=== PATIENT | female | born 1945 | race Caucasian/White ===

== ENCOUNTER → 2017-06-12 15:39 | Outpatient (CLI) | payer MEDICARE, OTHER, SELFPAY ==
--- NOTE | 2017-06-12 15:51 | RAD_ITS ---
STUDY: X-RAY CHEST REASON FOR EXAM: Female, 72 years old. Chest pain TECHNIQUE: Frontal and lateral views of the chest COMPARISON: 09/02/2014 FINDINGS: The lungs are clear. There are no pleural effusions. There is no pneumothorax. The heart is normal in size. The visualized osseous structures are within normal limits. RAD/Chest PA and Lateral IMPRESSION: No acute thoracic pathology. Electronically Signed: Demarco Cadet, at 17:02 EDT Tel , Service support ,
== END ==
PROVIDERS: Family Provider Family Medicine; PCP Family Medicine; Visit Provider Nurse Practitioner Adult Health
DX: R06.00 Dyspnea, unspecified (principal)
CPT/HCPCS: 71046

== ENCOUNTER 2017-06-24 11:36 | Inpatient (IN) | payer MEDICARE, OTHER, SELFPAY ==
[2017-06-24] VITALS (15 sets, daily range): BP systolic 145–196; BP diastolic 62–153; PULSE 72–135; RESP 14–20; TEMP 36.6–37.3; O2SAT 96–98; BMI 42.9; BMI 43.2; BMI 42.8
--- NOTE | 2017-06-24 08:27 | EKG12_ITS ---
Test Reason : CP Blood Pressure : / mmHG Vent. Rate : 136 BPM Atrial Rate : 144 BPM P-R Int : 198 ms QRS Dur : 088 ms QT Int : 294 ms P-R-T Axes : 000 013 023 degrees QTc Int : 442 ms Atrial fibrillation with RVR Nonspecific ST abnormality Poor R wave progression [place] septal [place], age undetermined, cannot be excluded Abnormal ECG Confirmed by NIRMAL DONALDSON, DELFINA ([id number]), publications editor NEFTALY STANTON ([id number]) on 06/25/2017 3:18:09 PM Referred By: BRENDAN Confirmed By:DELFINA KINNEY MD
--- NOTE | 2017-06-24 08:27 | RAD_ITS ---
STUDY: X-RAY CHEST REASON FOR EXAM: Female, 72 years old. Chest pain and cough TECHNIQUE: Single AP portable view of the chest. COMPARISON: 06/12/17 FINDINGS: EKG leads overlie the chest There are interstitial fibrotic changes of the lungs. Stable blunting of the right costophrenic angle, likely chronic. Normal size heart. Normal mediastinum and alfredo. Normal visualized pulmonary arteries. There is atherosclerotic calcification of the aortic arch with tortuosity. There are diffuse degenerative changes of the visualized thoracic spine. There is degenerative osteoarthritis of the bilateral shoulders. There is no demonstrated abnormality of the visualized soft tissue structures of the upper abdomen. RAD/Chest 1 View (Portable) IMPRESSION: Degenerative changes, as described above. No demonstrated acute cardiopulmonary process. No interval change Electronically Signed: Colt Brown MD at 8:56 EDT , Service support ,
--- NOTE | 2017-06-24 08:30 | ED.DCSUM_ITS ---
- ER Visit Summary Date of Service: 06/24/17 Chief Complaint: Chest pain History of Present Illness: The patient is a 72 F presenting with chest pain. Patient states this started around 2 AM. Pain is in the midsternal area. She has had diaphoresis, nausea, shortness of breath. She has no radiation of her pain. She was recently treated with Levaquin for pneumonia. She finished antibiotics a week ago. She continues to have cough. She has no fever. She has history of hypertension, diabetes, hypercholesteremia, previous smoker. Denies PE/DVT risk factors. She did not take her morning medications today. Physical Examination: Vitals are stable. Patient is afebrile. Alert no acute distress. HEENT exam is unremarkable. Neck is supple. Lungs are clear and equal bilaterally. Heart is regular tachycardic Abdomen is soft nontender nondistended. Extremities are unremarkable. Skin is warm and dry. No focal neurologic deficit. Remainder of exam is unremarkable. Emergency Department Course and Treatment: EKG sinus tachycardia rate 136. Patient is given aspirin on arrival. She is given IV fluids, Lopressor. Patient EKG is sinus rate is 74 with no acute ischemic changes. CBC shows a white count of 12.8, hemoglobin 11.9. BUN 20, creatinine 1.15. Troponin 0.05. D-dimer is 1.97. Due to elevated d-dimer, CTA chest was obtained which shows no evidence of PE, small right pleural effusion. Due to multiple risk factors, will discuss with the hospitalist for observation. Disposition: Observation Impression: Chest pain This note was generated with [employer] dictation software. It may contain incorrect words, spelling, and punctuation that were not noted in review of the chart prior to signing ED Disposition - Plan for ED Patient: Chief Complaint: Chest Pain Referrals: Aristides Quispe MD [Primary Care Provider] -
[2017-06-24] MEDS: Aspirin 81 MG TAB.CHEW 324 MG PO (08:37)
[2017-06-24] MEDS: Metoprolol Tartrate 5 MG/5 ML Vial IV (08:37)
[2017-06-24 08:52] LABS: Absolute Lymphocyte Count 2.96 X10^3/ul (0.83-4.51); Absolute Neutrophil Count 8.3 X10^3/uL (2.0-7.7); Basophil# 0.02 X10^3/uL; Basophil% 0.2 % (0-1); Eosinophil# 0.33 X10^3/uL; Eosinophils% 2.6 % (0-5); Hematocrit 35.1 % (37-47); Hemoglobin 11.9 g/dl (12.0-15.0); Lymphocyte # 2.96 X10^3/ul (4.0); Lymphocyte % 23.1 % (19-41); Mean Corp Hgb Conc 33.9 g/gl (32-36); Mean Corpuscular Hgb 32.7 pg (27.0-32.0); Mean Corpuscular Volume 96.4 fL (81-99); Monocyte% 9.4 % (0-10); Neutrophil # 8.25 X10^3/uL (2.7-7.7); Neutrophil % 64.2 % (47-70); Platelet Count 194 K/mm3 (150-450); RBC Distribution Width CV 13.5 % (11.6-14.6); RBC Distribution Width SD 45.3 fl (35.1-43.9); Red Blood Count 3.64 M/mm3 (4.2-5.4); White Blood Count 12.8 K/mm3 (4.4-11.0)
[2017-06-24 08:55] LABS: POSITIVE COUNT NO; POSITIVE DIFFERENTIAL NO; POSITIVE MORPHOLOGY NO
[2017-06-24 09:01] LABS: D-Dimer Quantitative (DVT/PE) 1.97 FEU/ug/m (0.27-0.49)
[2017-06-24 09:03] LABS: Anion Gap 7 (5-15); BUN 28 mg/dL (7-18); BUN/Creat Ratio 24.3 RATIO (10-20); Calcium,Total 8.4 mg/dL (8.5-10.1); Chloride 104 mmol/L (98-107); Creatinine, Serum 1.15 mg/dL (0.55-1.02); EST Glomerular Filtration Rate 49 mL/min (>60); Est Glom Filt Rate - Afr Amer 60 mL/min (>60); Estimated Creatinine Clearance 32.88 ml/min; Glucose 230 mg/dL (74-106); Potassium 4.9 mmol/L (3.5-5.1); Sodium Level 139 mmol/L (136-145)
--- NOTE | 2017-06-24 09:06 | ED.RN ---
DDIMER 1.[address] CARDONA NOTIFIED
--- NOTE | 2017-06-24 09:15 | CT_ITS ---
STUDY: CTA CHEST REASON FOR EXAM: Female, 72 years old. Sternal chest pain and chest heaviness. Former smoker. RADIATION DOSAGE (If Supplied By Facility): CTDIvol = ( 16.71 ) mGy, DLP = ( 719.95 ) mGycm TECHNIQUE: The examination was performed with the intravenous administration of 100 ml of Isovue 370 contrast material. Post-processing of the angiographic images was performed, with multiplanar reformation and 3D reconstruction. Individualized dose optimization techniques were used for this CT. COMPARISON: None. FINDINGS: Normal enhancement of the main pulmonary artery and right and left pulmonary arteries. Normal enhancement of the bilateral peripheral pulmonary arteries. There is no demonstrated pulmonary embolism. There is atherosclerotic calcification of the aortic arch with tortuosity. There is no demonstrated aortic dissection. There are calcifications of the coronary arteries. Normal mediastinum. Normal hilar regions. Normal visualized trachea and bronchi. The lungs are well expanded. Small right pleural effusion with underlying right basilar atelectasis. Mild increased markings at the left lung base. There is evidence of bibasilar scarring with areas of bronchiectasis. There is a 4.9 mm noncalcified nodule in the peripheral lateral aspect of the left lower lobe as seen on axial image #120. There is also evidence of a 5.6 mm noncalcified nodule along the anterior aspect of the left lower lobe adjacent to the major fissure as seen on axial image #128. Normal chest wall structures. There are degenerative changes of thoracic spine. Normal visualized upper abdomen. CT/CTA Chest W/WO Contrast IMPRESSION: Small right pleural effusion with right basilar atelectasis. Bibasilar scarring with areas of bronchiectasis. There are 2 small noncalcified nodules in the left lower lobe as described. Electronically Signed: Edilson Vaughn MD at 10:19 EDT Tel [phone], Service support ,
--- NOTE | 2017-06-24 10:45 | EKG12_ITS ---
Test Reason : REPEAT Blood Pressure : / mmHG Vent. Rate : 074 BPM Atrial Rate : 074 BPM P-R Int : 164 ms QRS Dur : 086 ms QT Int : 380 ms P-R-T Axes : 064 018 029 degrees QTc Int : 421 ms Normal sinus rhythm Poor R wave progression [place] septal [place], age undetermined, cannot be excluded Confirmed by NIRMAL DONALDSON, DELFINA ([id number]), assistant production editor NEFTALY STANTON ([id number]) on 06/25/2017 3:18:55 PM Referred By: BRENDAN Confirmed By:DEFLINA KINNEY MD
--- NOTE | 2017-06-24 11:43 | NURSING ---
PCU OBS CRISTIAN BECKWITH
--- NOTE | 2017-06-24 13:10 | PCM.HP.STD ---
Problem List (1) Asthma Status: Chronic (2) History of tobacco use Status: Chronic (3) Hypertension Status: Chronic (4) Hyperlipidemia Status: Chronic (5) History of TIA (transient ischemic attack) Status: Chronic (6) Morbid obesity with BMI of 40.0-44.9, adult Status: Chronic (7) Type II diabetes mellitus Status: Chronic History of Present Illness Date of Admission: 06/24/17 Chief Complaint: Chest pain. The patient is a 72 year old F with past medical history as mentioned above presented to the emergency room because of chest pain. Her symptoms started last night when she was sitting in her chair with substernal chest pain, described as pressure-like pain, 7-8 out of 10 in severity, not radiating, associated with mild shortness of breath, nausea and diaphoresis, lasted for around 6 hours without aggravating or relieving factors. The patient persists until she came to the emergency room and at this time, she thinks her pain is getting better. Around 12 days ago, she went to her PCPs office for cough and sputum production and she was treated for pneumonia as well as probable asthma exacerbation with Levaquin and prednisone. She completed course of 7 days of Levaquin as well as course of prednisone. She mentioned that after the antibiotics and prednisone, she feels better but she continued to have persistent dry cough. She denied fever or chills. In the emergency room, she was afebrile, heart rate was stable, pressure was fluctuating but slightly elevated and pulse ox was 96% on 2 L. Her routine blood work is remarkable for mild leukocytosis, creatinine of 1.15, otherwise normal. Her troponin is negative. EKG revealed normal sinus rhythm without evidence of acute ischemic changes. D-dimer was elevated for which CTA chest done and revealed no evidence of PE or dissection, left lower lobe nodules and small right pleural effusion. She is being admitted for chest pain for evaluation as well as left lower lung nodules.. Past Medical History Past Medical History (Chronic Problems): Chronic Problems Asthma (Chronic) History of tobacco use (Chronic) Hypertension (Chronic) Hyperlipidemia (Chronic) History of TIA (transient ischemic attack) (Chronic) Morbid obesity with BMI of 40.0-44.9, adult (Chronic) Type II diabetes mellitus (Chronic) Allergies hydrocodone bitartrate [From Vicodin] Allergy (Verified 06/24/17 08:13) Shortness of breath Penicillins Allergy (Verified 06/24/17 08:13) Hives oxycodone HCl [From Percocet] Adverse Reaction (Verified 06/24/17 08:13) Rash Home Medications: Ambulatory Orders Medication Instructions Recorded Glipizide [Glucotrol Xl] 10 mg PO BID 09/02/14 Metoprolol Tartrate [Lopressor 25 mg PO DAILY 09/02/14 (beta rory)] Metoprolol Tartrate [Lopressor 50 mg PO QHS 09/02/14 (beta rory)] Clopidogrel Bisulfate [Plavix] 75 mg PO DAILY #30 tablet 09/04/14 Aspirin [Aspirin, Baby] 81 mg PO DAILY 09/27/14 Montelukast [Singulair] 10 mg PO DAILY 09/21/15 Lisinopril/Hydrochlorothiazide 1 each PO DAILY #30 tablet 10/27/15 [Zestoretic 20-25 mg Tablet] Furosemide [Lasix] 40 mg PO DAILY 06/24/17 Insulin Glargine,Hum.rec.anlog 80 unit SQ DAILY 06/24/17 [Basaglar Kwikpen U-100] Lisinopril [Zestril] 20 mg PO QHS 06/24/17 Simvastatin [Zocor] 20 mg PO QHS 06/24/17 Symbicort 160-4.5 Mcg Inhaler 2 puff IH BID 06/24/17 traMADol [Ultram] 50 mg PO PRN PRN 06/24/17 Surgical History: cholecystectomy, tonsillectomy, - Psychiatric History: No pertinent psych hx [employer] MANAGER History: 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 Paternal History Items: Diabetes, Heart Disease - Father w/ NC, age 62., Hypertension Review of Systems Constitutional: Denies: Anorexia, Chills, Fever, Weakness, Fatigue Eyes: Denies: Blurred vision, Double vision, Drainage, Redness HEENT: Denies: Difficulty Hearing, Ear Pain, Eye Pain, Nasal Congestion, Sore Throat Cardiovascular: Reports: Chest Pain, Chest Pressure, Edema. Denies: Heaviness, Light Headedness, Palpitations, Syncope Respiratory: Reports: Cough, Shortness of Breath, Shortness of breath upon exertion. Denies: Sputum production, Wheezing Gastrointestinal: Denies: Abdominal Pain, Constipation, Diarrhea, Nausea, Vomiting Genitourinary: Denies: Dysuria, Frequency, Hematuria Musculoskeletal: Denies: Arm Pain, Back Pain, Foot Pain Skin: Denies: Dryness, Rash Neurological: Denies: Balance problems, Change in Speech, Slurred speech, Confusion, Headaches, Incoordination, Numbness Psychiatric: Denies: Anxiety, Depression Endocrine: Denies: Change in Body Habitus, Polydipsia VTE Information - Inpt Only VTE Present on Admission: No VTE Mechan Device Prophylaxis: None VTE Pharm Prophylaxis ordered?: Yes - Physical Exam General: Alert, Oriented x3, Cooperative, No apparent distress HEENT: Atraumatic, PERRLA, EOMI Oral: Moist Mucosa, No Gingival or Mucosal Lesions/ Ulcerations Neck: Supple, No JVD, Negative Carotid Bruits, Trachea Midline, Thyroid Normal Size and Texture Lungs: Clear to auscultation, No rhonchi, No wheeze, No rales, Diminished Cardiovascular: Regular rate, Regular Rhythm, Normal S1, Normal S2, No murmurs, Bradycardic Abdomen: Bowel Sounds Present, Soft, Non Tender, Non-Distended, No Hepato-splenomegaly, Obese Extremities: No clubbing, No cyanosis, Edema - + Edema. Skin: No rashes, No breakdown Lymphatic: No Cervical, Supraclavicular, or Inguinal Adenopathy Neurological: Cranial nerves II-XII grossly intact, Motor Exam 5/5 strength throughout Psych/Mental Status: Normal Affect, Appropriate, Alert and oriented to time, place, person, mood and affect Vital Signs Temp Pulse Resp BP Pulse Ox 98.3 F 80 14 168/75 H 98 06/24/17 08:14 06/24/17 12:16 06/24/17 12:16 06/24/17 12:16 06/24/17 12:16 Oxygen Delivery Method Room Air Laboratory Tests 06/24/17 06/24/17 06/24/17 Range/Units 08:30 08:30 08:30 WBC 12.8 H (4.4-11.0) K/mm3 RBC 3.64 L (4.2-5.4) M/mm3 Hgb 11.9 L (12.0-15.0) g/dl Hct 35.1 L (37-47) % MCV 96.4 (81-99) fL MCH 32.7 H (27.0-32.0) pg MCHC 33.9 (32-36) g/gl RDW 13.5 (11.6-14.6) % RDW Differential 45.3 H (35.1-43.9) fl Plt Count 194 (150-450) K/mm3 MPV 9.0 (6.2-12.0) fl Immature Gran % (Auto) 0.500 (0.0-0.9) % Neut % (Auto) 64.2 (47-70) % Lymph % (Auto) 23.1 (19-41) % [place] % (Auto) 9.4 (0-10) % Eos % (Auto) 2.6 (0-5) % Baso % (Auto) 0.2 (0-1) % Absolute Neuts (auto) 8.3 H (2.0-7.7) X10^3/uL Absolute Lymphs (auto) 2.96 (0.83-4.51) X10^3/ul Total Counted Not Reportable D-Dimer Quant (PE/DVT) 1.97 H* (0.27-0.49) FEU/ug/m Sodium 139 (136-145) mmol/L Potassium 4.9 (3.5-5.1) mmol/L Chloride 104 (98-107) mmol/L Carbon Dioxide 28.0 (21.0-32.0) mmol/L Anion Gap 7 (5-15) BUN 28 H (7-18) mg/dL Creatinine 1.15 H (0.55-1.02) mg/dL Estim Creat Clear Calc 32.88 ml/min Est GFR (MDRD) Af Amer 60 (>60) mL/min Est GFR (MDRD) Non-Af 49 L (>60) mL/min BUN/Creatinine Ratio 24.3 H (10-20) RATIO Glucose 230 H (74-106) mg/dL Calcium 8.4 L (8.5-10.1) mg/dL Troponin I 0.05 (<0.06) ng/mL Clinical Impression(s) from Imaging Studies Chest X-Ray 06/24/17 08:27 IMPRESSION: Degenerative changes, as described above. No demonstrated acute cardiopulmonary process. No interval change Electronically Signed: Colt Brown MD at 8:56 EDT , Service support , Chest CTA 06/24/17 09:15 IMPRESSION: Small right pleural effusion with right basilar atelectasis. Bibasilar scarring with areas of bronchiectasis. There are 2 small noncalcified nodules in the left lower lobe as described. Electronically Signed: Edilson Vaughn MD at 10:19 EDT Tel [phone], Service support , Assessment/Plan This is a 72 years old female patient presented to the emergency room because of chest pain/pressure and she is being admitted for evaluation and also found to have 2 left lower lung nodules. #1 chest pain/pressure: EKG revealed no acute ischemic changes. First troponin is negative. CTA chest showed no evidence of PE or dissection. She had a history of non-ST elevation NC back in August, which is attributed to lesion at the terminal portion of the obtuse marginal branch, no interventions done at that time and medical treatment was recommended. Chest x-ray showed no acute findings. Plan: Admit to PCU, hall monitor, serial cardiac enzymes, repeat EKG tomorrow morning, nuclear stress test tomorrow morning, IV fluids, IV Zofran, Tylenol as needed, continue aspirin, statins, Plavix, lisinopril. #2 left lower lung nodules: This is an incidental finding on CTA chest. Patient is a ex-smoker. She quit smoking 14 years ago. Those nodules are very small. Plan: Pulmonology consult. #3 recent history of pneumonia: Patient was treated with Levaquin and prednisone as outpatient. She did mention that she feels better after the antibiotics and steroids but she continued to have persistent cough. Chest x-ray without acute infiltrate. CTA chest with small right pleural effusion which is likely parapneumonic. At this time, no indication for more antibiotics. #4 elevated d-dimer: Unclear etiology, CTA chest negative for PE. No clinical evidence of DVT. #5 CAD: Without history of prior cardiac interventions. Plan as above, continue aspirin, statins, Plavix and lisinopril. Metoprolol will be held for stress test. #5 type 2 diabetes mellitus: ADA diet, Accu-Cheks, insulin sliding scale, continue glipizide and glargine insulin. #6 hypertension: Initially, blood pressure was slightly elevated, now stabilized. Continue lisinopril, hold metoprolol, IV hydralazine as needed. #7 hyperlipidemia: Continue statins. #8 asthma: Clinically stable, albuterol as needed. She is supposed to see Dr. Erickson as outpatient by the end of this month. He will be consulted as above. #9 history of TIA: Continue aspirin, statin and Plavix. #10 DVT prophylaxis: Subcu heparin. This note was generated with [employer] dictation software. It may contain incorrect words, spelling, and punctuation that were not noted in checking the note before signing. Code Visit Inpatient E&M: 93187 Init Hosp L3
--- NOTE | 2017-06-24 13:18 | HP.PCM_ITS ---
Problem List (1) Asthma Status: Chronic (2) History of tobacco use Status: Chronic (3) Hypertension Status: Chronic (4) Hyperlipidemia Status: Chronic (5) History of TIA (transient ischemic attack) Status: Chronic (6) Morbid obesity with BMI of 40.0-44.9, adult Status: Chronic (7) Type II diabetes mellitus Status: Chronic History of Present Illness Date of Admission: 06/24/17 Chief Complaint: Chest pain. The patient is a 72 year old F with past medical history as mentioned above presented to the emergency room because of chest pain. Her symptoms started last night when she was sitting in her chair with substernal chest pain, described as pressure-like pain, 7-8 out of 10 in severity, not radiating, associated with mild shortness of breath, nausea and diaphoresis, lasted for around 6 hours without aggravating or relieving factors. The patient persists until she came to the emergency room and at this time, she thinks her pain is getting better. Around 12 days ago, she went to her PCPs office for cough and sputum production and she was treated for pneumonia as well as probable asthma exacerbation with Levaquin and prednisone. She completed course of 7 days of Levaquin as well as course of prednisone. She mentioned that after the antibiotics and prednisone, she feels better but she continued to have persistent dry cough. She denied fever or chills. In the emergency room, she was afebrile, heart rate was stable, pressure was fluctuating but slightly elevated and pulse ox was 96% on 2 L. Her routine blood work is remarkable for mild leukocytosis, creatinine of 1.15, otherwise normal. Her troponin is negative. EKG revealed normal sinus rhythm without evidence of acute ischemic changes. D-dimer was elevated for which CTA chest done and revealed no evidence of PE or dissection, left lower lobe nodules and small right pleural effusion. She is being admitted for chest pain for evaluation as well as left lower lung nodules.. Past Medical History Past Medical History (Chronic Problems): Chronic Problems Asthma (Chronic) History of tobacco use (Chronic) Hypertension (Chronic) Hyperlipidemia (Chronic) History of TIA (transient ischemic attack) (Chronic) Morbid obesity with BMI of 40.0-44.9, adult (Chronic) Type II diabetes mellitus (Chronic) Allergies hydrocodone bitartrate [From Vicodin] Allergy (Verified 06/24/17 08:13) Shortness of breath Penicillins Allergy (Verified 06/24/17 08:13) Hives oxycodone HCl [From Percocet] Adverse Reaction (Verified 06/24/17 08:13) Rash Home Medications: Ambulatory Orders Medication Instructions Recorded Glipizide [Glucotrol Xl] 10 mg PO BID 09/02/14 Metoprolol Tartrate [Lopressor 25 mg PO DAILY 09/02/14 (beta rory)] Metoprolol Tartrate [Lopressor 50 mg PO QHS 09/02/14 (beta rory)] Clopidogrel Bisulfate [Plavix] 75 mg PO DAILY #30 tablet 09/04/14 Aspirin [Aspirin, Baby] 81 mg PO DAILY 09/27/14 Montelukast [Singulair] 10 mg PO DAILY 09/21/15 Lisinopril/Hydrochlorothiazide 1 each PO DAILY #30 tablet 10/27/15 [Zestoretic 20-25 mg Tablet] Furosemide [Lasix] 40 mg PO DAILY 06/24/17 Insulin Glargine,Hum.rec.anlog 80 unit SQ DAILY 06/24/17 [Basaglar Kwikpen U-100] Lisinopril [Zestril] 20 mg PO QHS 06/24/17 Simvastatin [Zocor] 20 mg PO QHS 06/24/17 Symbicort 160-4.5 Mcg Inhaler 2 puff IH BID 06/24/17 traMADol [Ultram] 50 mg PO PRN PRN 06/24/17 Surgical History: cholecystectomy, tonsillectomy, - Psychiatric History: No pertinent psych hx 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 Paternal History Items: Diabetes, Heart Disease - Father w/ [place], age 62., Hypertension Review of Systems Constitutional: Denies: Anorexia, Chills, Fever, Weakness, Fatigue Eyes: Denies: Blurred vision, Double vision, Drainage, Redness HEENT: Denies: Difficulty Hearing, Ear Pain, Eye Pain, Nasal Congestion, Sore Throat Cardiovascular: Reports: Chest Pain, Chest Pressure, Edema. Denies: Heaviness, Light Headedness, Palpitations, Syncope Respiratory: Reports: Cough, Shortness of Breath, Shortness of breath upon exertion. Denies: Sputum production, Wheezing Gastrointestinal: Denies: Abdominal Pain, Constipation, Diarrhea, Nausea, Vomiting Genitourinary: Denies: Dysuria, Frequency, Hematuria Musculoskeletal: Denies: Arm Pain, Back Pain, Foot Pain Skin: Denies: Dryness, Rash Neurological: Denies: Balance problems, Change in Speech, Slurred speech, Confusion, Headaches, Incoordination, Numbness Psychiatric: Denies: Anxiety, Depression Endocrine: Denies: Change in Body Habitus, Polydipsia VTE Information - Inpt Only VTE Present on Admission: No VTE Mechan Device Prophylaxis: None VTE Pharm Prophylaxis ordered?: Yes - Physical Exam General: Alert, Oriented x3, Cooperative, No apparent distress HEENT: Atraumatic, PERRLA, EOMI Oral: Moist Mucosa, No Gingival or Mucosal Lesions/ Ulcerations Neck: Supple, No JVD, Negative Carotid Bruits, Trachea Midline, Thyroid Normal Size and Texture Lungs: Clear to auscultation, No rhonchi, No wheeze, No rales, Diminished Cardiovascular: Regular rate, Regular Rhythm, Normal S1, Normal S2, No murmurs, Bradycardic Abdomen: Bowel Sounds Present, Soft, Non Tender, Non-Distended, No Hepato- splenomegaly, Obese Extremities: No clubbing, No cyanosis, Edema - + Edema. Skin: No rashes, No breakdown Lymphatic: No Cervical, Supraclavicular, or Inguinal Adenopathy Neurological: Cranial nerves II-XII grossly intact, Motor Exam 5/5 strength throughout Psych/Mental Status: Normal Affect, Appropriate, Alert and oriented to time, place, person, mood and affect Vital Signs Temp Pulse Resp BP Pulse Ox 98.3 F 80 14 168/75 H 98 06/24/17 08:14 06/24/17 12:16 06/24/17 12:16 06/24/17 12:16 06/24/17 12:16 Oxygen Delivery Method Room Air Laboratory Tests 3 06/24/17 06/24/17 06/24/17 Range/Units 08:30 08:30 08:30 WBC 12.8 H (4.4-11.0) K/mm3 RBC 3.64 L (4.2-5.4) M/mm3 Hgb 11.9 L (12.0-15.0) g/dl Hct 35.1 L (37-47) % MCV 96.4 (81-99) fL MCH 32.7 H (27.0-32.0) pg MCHC 33.9 (32-36) g/gl RDW 13.5 (11.6-14.6) % RDW Differential 45.3 H (35.1-43.9) fl Plt Count 194 (150-450) K/mm3 MPV 9.0 (6.2-12.0) fl Immature Gran % (Auto) 0.500 (0.0-0.9) % Neut % (Auto) 64.2 (47-70) % Lymph % (Auto) 23.1 (19-41) % [place] % (Auto) 9.4 (0-10) % Eos % (Auto) 2.6 (0-5) % Baso % (Auto) 0.2 (0-1) % Absolute Neuts (auto) 8.3 H (2.0-7.7) X10^3/uL Absolute Lymphs (auto) 2.96 (0.83-4.51) X10^3/ul Total Counted Not Reportable D-Dimer Quant (PE/DVT) 1.97 H* (0.27-0.49) FEU/ug/m Sodium 139 (136-145) mmol/L Potassium 4.9 (3.5-5.1) mmol/L Chloride 104 (98-107) mmol/L Carbon Dioxide 28.0 (21.0-32.0) mmol/L Anion Gap 7 (5-15) BUN 28 H (7-18) mg/dL Creatinine 1.15 H (0.55-1.02) mg/dL Estim Creat Clear Calc 32.88 ml/min Est GFR (MDRD) Af Amer 60 (>60) mL/min Est GFR (MDRD) Non-Af 49 L (>60) mL/min BUN/Creatinine Ratio 24.3 H (10-20) RATIO Glucose 230 H (74-106) mg/dL Calcium 8.4 L (8.5-10.1) mg/dL Troponin I 0.05 (<0.06) ng/mL Clinical Impression(s) from Imaging Studies Chest X-Ray 06/24/17 08:27 IMPRESSION: Degenerative changes, as described above. No demonstrated acute cardiopulmonary process. No interval change Electronically Signed: Colt Brown MD at 8:56 EDT , Service support , Chest CTA 06/24/17 09:15 IMPRESSION: Small right pleural effusion with right basilar atelectasis. Bibasilar scarring with areas of bronchiectasis. There are 2 small noncalcified nodules in the left lower lobe as described. Electronically Signed: Edilson Vaughn MD at 10:19 EDT Tel [phone], Service support , Assessment/Plan This is a 72 years old female patient presented to the emergency room because of chest pain/pressure and she is being admitted for evaluation and also found to have 2 left lower lung nodules. #1 chest pain/pressure: EKG revealed no acute ischemic changes. First troponin is negative. CTA chest showed no evidence of PE or dissection. She had a history of non-ST elevation NC back in August, which is attributed to lesion at the terminal portion of the obtuse marginal branch, no interventions done at that time and medical treatment was recommended. Chest x-ray showed no acute findings. Plan: Admit to PCU, radiographer cardiac catheterization, serial cardiac enzymes, repeat EKG tomorrow morning, nuclear stress test tomorrow morning, IV fluids, IV Zofran , Tylenol as needed, continue aspirin, statins, Plavix, lisinopril. #2 left lower lung nodules: This is an incidental finding on CTA chest. Patient is a ex-smoker. She quit smoking 14 years ago. Those nodules are very small. Plan: Pulmonology consult. #3 recent history of pneumonia: Patient was treated with Levaquin and prednisone as outpatient. She did mention that she feels better after the antibiotics and steroids but she continued to have persistent cough. Chest x- ray without acute infiltrate. CTA chest with small right pleural effusion which is likely parapneumonic. At this time, no indication for more antibiotics. #4 elevated d-dimer: Unclear etiology, CTA chest negative for PE. No clinical evidence of DVT. #5 CAD: Without history of prior cardiac interventions. Plan as above, continue aspirin, statins, Plavix and lisinopril. Metoprolol will be held for stress test. #5 type 2 diabetes mellitus: ADA diet, Accu-Cheks, insulin sliding scale, continue glipizide and glargine insulin. #6 hypertension: Initially, blood pressure was slightly elevated, now stabilized. Continue lisinopril, hold metoprolol, IV hydralazine as needed. #7 hyperlipidemia: Continue statins. #8 asthma: Clinically stable, albuterol as needed. She is supposed to see Dr. Erickson as outpatient by the end of this month. He will be consulted as above. #9 history of TIA: Continue aspirin, statin and Plavix. #10 DVT prophylaxis: Subcu heparin. This note was generated with [employer] dictation software. It may contain incorrect words, spelling, and punctuation that were not noted in checking the note before signing. Code Visit Inpatient E&M: 30912 Init Hosp L3
[2017-06-24] MEDS: 0.9% NaCl Peripheral Flush Adult/Peds IV (13:58)
[2017-06-24] MEDS: Heparin Injection 5,000 UNITS/ML Syringe 5000 UNITS SC ×2 (13:58→21:42)
[2017-06-24] MEDS: 0.9% Normal Saline 1,000 ML 75 ML IV (13:58)
[2017-06-24] MEDS: glipiZIDE XL 5 MG Tablet 10 MG PO (16:09)
[2017-06-24] MEDS: hydroCHLOROthiazide 25 MG Tablet PO (16:09)
[2017-06-24] MEDS: Lisinopril 20 MG Tablet PO (16:10)
[2017-06-24] MEDS: Clopidogrel Bisulfate 75 MG Tablet PO (16:11)
--- NOTE | 2017-06-24 16:27 | PCM.CONS.C ---
Reason for Consult Date of Consultation: 06/24/17 Reason for Consultation: Chest pain. History of Present Illness: The patient is a 72 year old F with past medical history significant for hypertension hypercholesterolemia as well as coronary artery disease who presented to the emergency room because of chest pain. Her symptoms started last night when she was sitting in her chair with substernal chest pain, described as pressure-like pain, 7-8 out of 10 in severity, not radiating, associated with mild shortness of breath, nausea and diaphoresis, lasted for around 6 hours without aggravating or relieving factors. She described it as an elephant sitting on her chest in her own words. The patient persisted until she came to the emergency room and at this time, she thinks her pain is getting better. Around 12 days ago, she went to her PCPs office for cough and sputum production and she was treated for pneumonia as well as probable asthma exacerbation with Levaquin and prednisone. She completed course of 7 days of Levaquin as well as course of prednisone. She mentioned that after the antibiotics and prednisone, she feels better but she continued to have persistent dry cough. She denied fever or chills. In the emergency room, she was afebrile, heart rate was stable, pressure was fluctuating but slightly elevated and pulse ox was 96% on 2 L. Her routine blood work is remarkable for mild leukocytosis, creatinine of 1.15, otherwise normal. Her initial troponin is negative. EKG revealed normal sinus rhythm without evidence of acute ischemic changes. D-dimer was elevated for which CTA chest done and revealed no evidence of PE or dissection, left lower lobe nodules and small right pleural effusion. Follow-up troponin was noted to be abnormal. In 2014 she had presented with chest discomfort and a non-ST elevation myocardial infarction and underwent a cardiac catheterization by Dr. Rafi Lynn which demonstrated left main coronary artery with no significant disease, a left anterior descending artery with a 30% ostial stenosis in the left anterior descending artery wrapping around the apex of the left ventricle with 30% stenosis noted in the mid segment, left circumflex artery which was a moderate size with a significant 70% stenosis of the bifurcation of a small inferior branch of the obtuse marginal vessel as well as a very small superior branch which was thought to be the patient's culprit lesion. The right coronary artery was a large dominant vessel with 30% proximal to mid stenotic region with the remainder of the vessel being free of significant disease. Based on the above medical therapy was recommended and she has continued on the above including clopidogrel Past Medical History Allergies/Adverse Reactions: Allergies hydrocodone bitartrate [From Vicodin] Allergy (Verified 06/24/17 08:13) Shortness of breath Penicillins Allergy (Verified 06/24/17 08:13) Hives oxycodone HCl [From Percocet] Adverse Reaction (Verified 06/24/17 08:13) Rash Home Medications: Ambulatory Orders Medication Instructions Recorded Glipizide [Glucotrol Xl] 10 mg PO BID 09/02/14 Metoprolol Tartrate [Lopressor 25 mg PO DAILY 09/02/14 (beta rory)] Metoprolol Tartrate [Lopressor 50 mg PO QHS 09/02/14 (beta rory)] Clopidogrel Bisulfate [Plavix] 75 mg PO DAILY #30 tablet 09/04/14 Aspirin [Aspirin, Baby] 81 mg PO DAILY 09/27/14 Montelukast [Singulair] 10 mg PO DAILY 09/21/15 Lisinopril/Hydrochlorothiazide 1 each PO DAILY #30 tablet 10/27/15 [Zestoretic 20-25 mg Tablet] Furosemide [Lasix] 40 mg PO DAILY 06/24/17 Insulin Glargine,Hum.rec.anlog 80 unit SQ DAILY 06/24/17 [Basaglar Kwikpen U-100] Lisinopril [Zestril] 20 mg PO QHS 06/24/17 Simvastatin [Zocor] 20 mg PO QHS 06/24/17 Symbicort 160-4.5 Mcg Inhaler 2 puff IH BID 06/24/17 traMADol [Ultram] 50 mg PO PRN PRN 06/24/17 Past Medical History (Chronic Problems): Chronic Problems Asthma (Chronic) History of tobacco use (Chronic) Hypertension (Chronic) Hyperlipidemia (Chronic) History of TIA (transient ischemic attack) (Chronic) Morbid obesity with BMI of 40.0-44.9, adult (Chronic) Type II diabetes mellitus (Chronic) Surgical History: cholecystectomy, tonsillectomy, - Psychiatric History: No pertinent psych hx 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 Paternal History Items: Diabetes, Heart Disease - Father w/ [place], age 62., Hypertension Lives: Alone Smoking Status: Former smoker Alcohol: None Drugs: None Review of Systems - Review of Systems General: Denies: Fever, Night Sweats, Fatigue Cardiovascular: Reports: Chest Discomfort at Rest. Denies: Chest Discomfort, Shortness of Breath, Orthopnea, PND, Peripheral Edema, Palpitations, Lightheadedness, Dizziness, Near Syncope, Syncope Respiratory: Denies: Cough, Sputum Production, Hemoptysis Gastrointestinal: Denies: Hematemesis, Hematochezia, Melena Genitourinary: Denies: Dysuria, Hematuria Skin: Denies: Rash Subjectve: Pleasant lady in no apparent distress. Objective: Vital Signs Temp Pulse Resp BP Pulse Ox 98.4 F 87 18 158/64 H 97 06/24/17 16:04 06/24/17 16:04 06/24/17 16:04 06/24/17 16:04 06/24/17 16:04 Oxygen Flow Rate (L/min) 2 Oxygen Delivery Method Nasal Cannula Weight: 226 lb 13.69 oz Body Mass Index (BMI) 42.8 General: Awake, Alert, Oriented x 3 HEENT: PERRL, EOMI, Sclera Non Icteric Neck: Supple, Good ROM, No Lymph Node Enlargement Lungs: Clear to auscultation Cardiovascular: Regular Rhythm, Normal S1, Normal S2, No Murmurs, No Rubs, No Gallops Vascular: No Carotid Bruits, Normal Femoral Pulses, Normal Radial Pulses, Normal Dorsalis Pedal Pulse, Normal Posterior Tibial Pulses Abdomen: Bowel Sounds Present, Soft, Non Tender, No HSM, No Organomegaly Extremities: No Cyanosis, No Clubbing, No edema Neurological: No Focal Motor or Sensory Deficit 06/24/17 13:05: Troponin I 1.22 H* Rhythm: EKG: Normal sinus rhythm with nonspecific ST changes. Assessment/Plan 1. Non-ST elevation myocardial infarction. She presents with chest discomfort which is rather concerning and has abnormal cardiac enzymes. She has previously documented coronary artery disease. And has been compliant with medication. On the basis of the above I would recommend that we forego any noninvasive stress testing and proceed with a cardiac catheterization. The risk benefits and alternatives have been explained to her she understands and agrees to proceed. She will continue on her beta-royr aspirin and clopidogrel as well as a statin. This will be arranged for sometime in a.m. on Saturday. 2. Hypertension. She does have a history of hypertension and on medical therapy and the plan will be to continue the same without making significant changes. 3. Risk factor modification. Weight loss has been encouraged as well as continued use of his statin. Thank you for allowing me to participate in the care of your patient. Please don't hesitate to call if any issues arise
[2017-06-24 16:40] LABS: Bedside Glucose 216 mg/dL (70-110)
[2017-06-24] MEDS: Furosemide 40 MG/4 ML Vial IV (17:01)
[2017-06-24] MEDS: Budesonide Respules 0.5 MG/2 ML AMPUL.NEB. INHALATION (20:19)
[2017-06-24] MEDS: Albuterol 2.5 MG/3 ML VIAL.NEB. INHALATION (20:19)
[2017-06-24] MEDS: Metoprolol Tartrate 50 MG Tablet PO (21:42)
[2017-06-24] MEDS: Atorvastatin Calcium 10 MG Tablet PO (21:42)
[2017-06-24 22:40] LABS: Bedside Glucose 173 mg/dL (70-110)
[2017-06-25] VITALS (16 sets, daily range): BP systolic 136–176; BP diastolic 41–76; PULSE 64–81; RESP 16–18; TEMP 36.8–37; O2SAT 92–97
[2017-06-25 02:20] LABS: Absolute Lymphocyte Count 1.95 X10^3/ul (0.83-4.51); Absolute Neutrophil Count 5.7 X10^3/uL (2.0-7.7); Basophil# 0.02 X10^3/uL; Basophil% 0.2 % (0-1); Eosinophil# 0.29 X10^3/uL; Eosinophils% 3.2 % (0-5); Hematocrit 30.5 % (37-47); Hemoglobin 10.2 g/dl (12.0-15.0); Lymphocyte # 1.95 X10^3/ul (4.0); Lymphocyte % 21.8 % (19-41); Mean Corp Hgb Conc 33.4 g/gl (32-36); Mean Corpuscular Hgb 32.4 pg (27.0-32.0); Mean Corpuscular Volume 96.8 fL (81-99); Mean Platelet Vol. 8.9 fl (6.2-12.0); Monocyte# 0.94 X10^3/uL; Monocyte% 10.5 % (0-10); Neutrophil # 5.73 X10^3/uL (2.7-7.7); Platelet Count 164 K/mm3 (150-450); RBC Distribution Width CV 13.5 % (11.6-14.6); RBC Distribution Width SD 45.4 fl (35.1-43.9); Red Blood Count 3.15 M/mm3 (4.2-5.4)
[2017-06-25 02:22] LABS: POSITIVE COUNT NO; POSITIVE DIFFERENTIAL NO; POSITIVE MORPHOLOGY NO
[2017-06-25 02:28] LABS: International Normalized Ratio 1.2; Partial Thromboplast Time 32.7 Seconds (24.1-36.2)
[2017-06-25 02:39] LABS: Anion Gap 6 (5-15); BUN 25 mg/dL (7-18); BUN/Creat Ratio 22.1 RATIO (10-20); Calcium,Total 8.1 mg/dL (8.5-10.1); Chloride 108 mmol/L (98-107); Creatinine, Serum 1.13 mg/dL (0.55-1.02); EST Glomerular Filtration Rate 50 mL/min (>60); Est Glom Filt Rate - Afr Amer 61 mL/min (>60); Estimated Creatinine Clearance 33.46 ml/min; Glucose 87 mg/dL (74-106); Potassium 4.6 mmol/L (3.5-5.1); Sodium Level 142 mmol/L (136-145)
[2017-06-25 03:43] LABS: Mucous, Urine 0 SEEN /hpf (<or=2+); Red Blood Cells-Urine 0 SEEN /hpf (0-5)
[2017-06-25 03:55] LABS: Color, Urine Yellow (Yellow); Glucose, Dipstick Normal (Normal); Ketone-Dipstick Negative (Negative); Leukocyte Esterase-Dipstick 25 /ul (Negative); Nitrite-Dipstick Negative (Negative); Occult Blood-Urine Negative /ul (Negative); Protein-Dipstick Negative (Negative); Urine Bilirubin Dipstick Negative (Negative); Urine Clarity Clear (Clear); Urine Urobilinogen 1 mg/dl (Normal)
[2017-06-25 04:47] LABS: Squamous Epithelial Cells - UA 0-5 SEEN /hpf (5-10); White Blood Cells 0-5 SEEN /hpf (0-5)
[2017-06-25 04:48] LABS: Bacteria RARE /hpf (None Seen)
--- NOTE | 2017-06-25 05:55 | EKG12_ITS ---
Test Reason : AM EKG Blood Pressure : / mmHG Vent. Rate : 072 BPM Atrial Rate : 072 BPM P-R Int : 166 ms QRS Dur : 088 ms QT Int : 398 ms P-R-T Axes : 079 037 024 degrees QTc Int : 435 ms Normal sinus rhythm Normal ECG When compared with ECG of 24-JUN-2017 11:16, MANUAL COMPARISON REQUIRED, DATA IS UNCONFIRMED Confirmed by FELICIA HEARN ([id number]), order editor NEFTALY STANTON ([id number]) on 06/27/2017 3:18:18 PM Referred By: DR BECKWITH Confirmed By:FELICIA HEARN
[2017-06-25] MEDS: Dextrose 50%-Water 25 GM/50 ML DISP.SYRIN IV (06:05)
[2017-06-25] MEDS: Metoprolol Tartrate 25 MG Tablet PO (06:08)
[2017-06-25] MEDS: Aspirin 81 MG TAB.CHEW PO (06:09)
[2017-06-25] MEDS: Lisinopril 20 MG Tablet PO (06:09)
[2017-06-25] MEDS: Clopidogrel Bisulfate 75 MG Tablet PO (06:10)
[2017-06-25 06:30] LABS: Bedside Glucose 136 mg/dL (70-110)
[2017-06-25 06:30] LABS: Bedside Glucose 78 mg/dL (70-110)
[2017-06-25] MEDS: 0.9% Normal Saline 1,000 ML 15 ML IV (06:42)
[2017-06-25] MEDS: Albuterol 2.5 MG/3 ML VIAL.NEB. INHALATION ×2 (06:52→13:10)
[2017-06-25] MEDS: Budesonide Respules 0.5 MG/2 ML AMPUL.NEB. INHALATION (06:52)
--- NOTE | 2017-06-25 08:17 | CL.D_ITS ---
Patient Name: CELENA LARA Study Date: 06/25/2017 Performing: Flex Lynn MD Ht: 61.02 inches 155 cm : 1945 Wt: 227.08 lbs 103 kg Age: 72 Gender: female BSA: 1.99 PROCEDURE(S) PERFORMED [id number] CLINICAL PROFILE AND INDICATIONS Patient presents with NSTEMI for urgent cardiac cath Indications: ACS <= 24 hrs, New Onset Angina <= 2 months, Stable Known CAD, Cardiac Arrythmia, Ca rdiomyopathy Heart Failure: None Stress/Imaging Stress/Image Study Performed: No Angina Classification Anginal Classification w/in 2 Weeks: CCS IV CAD Presentations: Unstable angina. Comorbidities/Risk Factors: Hypertension Dyslipidemia Diabetes Mellitus: Diabetes Therapy: Insulin Prior HI CONCLUSIONS Left Ventricular Hypertrophy - Moderate Elevated Left Ventricular End Diastolic Pressure LVEF: by LV gram 75 % Non obstructive coronary arteries RECOMMENDATIONS Risk factor modification ASA Indefinitely Management as per referring Automation Software Engineer Resume full activity D/C plavix Pt has similar cath findings in 2014, and given pt's moderate LVH and hyperdynamic LV function, she m ay develop troponin release with medical stress in the future. DESCRIPTION OF PROCEDURE The patient arrived to the procedure lab. The risks and benefits of the procedure as well as a full d escription of our services here and current unavailability of surgical backup were fully explained to the patient and/or their significant other prior to the catheterization. The Timeout was completed, verifying the correct patient and procedure. The patient's procedural site was prepped and draped in the usual fashion. Local anesthetic was given subcutaneously to right groin region with Lidocaine 2%. Using a modified Seldinger technique, arterial access was obtained via the right femoral artery, a 4 Fr sheath was inserted Left Coronary Artery selective angiography was performed in multiple views us ing a 4 Fr. JL5 catheter. Right Coronary Artery selective angiography was then performed in multiple views using a 4 Fr. 3DRC catheter. Left Ventriculography was performed in TRIPP projection using a 4 Fr . Pigtail catheter. LV to AO pullback pressures were then recorded.The arterial sheath was pulled and manual compression applied until hemostasis is achieved. CORONARY ANGIOGRAPHY DOMINANCE: Right Dominant LEFT HEART ASSESSMENT Left Ventricular Ejection Fraction: by LV Gram 75 % Normal LV wall motion Normal Left Ventricular systolic function Left Ventricular Hypertrophy Cardiomyopathy: Hypertrophic Elevated Left Ventricular End Diastolic Pressure LEFT MAIN: 10 % Stenosis LEFT ANTERIOR DECENDING ARTERY: No significant disease noted CIRCUMFLEX ARTERY: Mild luminal irregularities less than 30% RIGHT CORONARY ARTERY: MID RCA: Mild luminal irregularities less than 30% RT PDA: Proximal - No significant disease noted COMPLICATIONS No Complications PROCEDURE MEDICATIONS Versed 1 mg IV Versed 1 mg IV Oxygen: 2 L/min via nasal cannula SUMMARY OF HEMODYNAMIC DATA Time AIR REST ECG 07:23:50 AO 172/54 (91) SA 07:54:03 LV 116/1, 16 08:00:22 LV 119/-1, 18 08:00:28 LVp 117/1, 15 08:00:35 AOp 132/34 (65) 08:00:40 Signed By Flex Lynn MD On 06/25/2017 08:16:32 Flex Lynn MD
--- NOTE | 2017-06-25 09:33 | CON.PCM_ITS ---
Problem List (1) History of tobacco use Status: Chronic Comment: in remission, 66-pk-yr history (2) Hypertension Status: Chronic (3) Hyperlipidemia Status: Chronic (4) History of TIA (transient ischemic attack) Status: Chronic (5) Morbid obesity with BMI of 40.0-44.9, adult Status: Chronic (6) Type II diabetes mellitus Status: Chronic (7) Asthma Status: Chronic Reason for Consult Date of Consultation: 06/25/17 Reason for Consultation: LLL lung nodules History of Present Illness: The patient is a 72 year old F with past medical history as below who presented to the ED secondary to sudden onset of chest pressure that started the evening before presentation while at rest. She was sitting in her recliner watching TV , had some mild shortness of breath, nausea, and diaphoresis associated with the pain. The nausea did resolve by the time she arrived to the ER. The pain lasted approximately 5 or 6 hours. Patient reports she developed a cough, increased sputum production, and fatigue on . She went to her PCP's office on 06/12/17, who ordered a chest x-ray showed no acute abnormality. Patient reports she was told she had pneumonia superimposed on asthma exacerbation, and was placed on Levaquin and prednisone. Patient noted improvement but still having coarse, nonproductive cough. Denies any fever chills, hemoptysis, weight change, or orthopnea. She does have chronic lower extremity edema which she takes Lasix for. Workup in the ED included chest x-ray which showed degenerative changes of the spine, interstitial fibrotic changes of the lungs and stable blunting of the right costophrenic angle. D-dimer is elevated 1.97, so a CTA of the chest was obtained. This showed a small right pleural effusion with right basilar atelectasis, bibasilar scarring with areas of bronchiectasis, and 2 small noncalcified nodules in the left lower lobe measuring 4.9 mm and 5.6 mm. Lab work was remarkable for mild leukocytosis of 12,800, hemoglobin 11.9. Chemistry remarkable for BUN of 20 and creatinine 1.15. Glucose was 230. Urinalysis relatively unremarkable. Initial troponin was negative, however troponins peaked at 1.96. Patient underwent diagnostic cardiac catheterization that was reportedly similar to the results in 2015, no intervention required. Patient had prior heart catheterization in 2015 secondary to non-STEMI and medical therapy was recommended, she was placed on Plavix. The patient had a polysomnogram 01/06/16, at which time it is recommended she wear her CPAP mask with pressures of 19/13 with humidification. Patient reports compliance with her CPAP. She denies any daytime sleepiness, hypersomnia, nocturia. Patient has never required any home oxygen supplementation. She did follow with Dr. Liz several years ago at which time she had pulmonary function tests and was told she had asthma. She has not been to see him in over 5 years. Her PCP, Dr. Aristides Quispe assist with management for asthma. She currently is on Symbicort and Singulair, also takes Proair PRN and also has a nebulizer at home that she uses when she gets sick. She does feel that the Symbicort helps. Patient complains of dyspnea on exertion that is chronic for her. She is unable to walk from the house to her car without becoming short of breath. She has tried using her rescue inhaler which helps minimally. 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 No history of TB or asbestos exposure. She does have a 60-axrh-toan history of smoking, quit 14 years ago. Patient also had echocardiogram 10/17/15 that showed hyperdynamic left ventricular systolic function with an estimated EF of 75%, moderate concentric LVH, severely enlarged left atrium, severe mitral annular calcification with extension onto the posterior mitral valve leaflet with partial leaflet restriction, moderate mitral valve stenosis, trivial MVI and trivial TVI, mild focal aortic valve calcification, RVSP estimated 42 mmHg. Past Medical History Past Medical History (Chronic Problems): Chronic Problems Asthma (Chronic) History of tobacco use (Chronic) in remission, 66-pk-yr history Hypertension (Chronic) Hyperlipidemia (Chronic) History of TIA (transient ischemic attack) (Chronic) Morbid obesity with BMI of 40.0-44.9, adult (Chronic) Type II diabetes mellitus (Chronic) Allergies hydrocodone bitartrate [From Vicodin] Allergy (Verified 06/24/17 08:13) Shortness of breath Penicillins Allergy (Verified 06/24/17 08:13) Hives oxycodone HCl [From Percocet] Adverse Reaction (Verified 06/24/17 08:13) Rash Home Medications: Ambulatory Orders Medication Instructions Recorded Glipizide [Glucotrol Xl] 10 mg PO BID 09/02/14 Metoprolol Tartrate [Lopressor 25 mg PO DAILY 09/02/14 (beta rory)] Metoprolol Tartrate [Lopressor 50 mg PO QHS 09/02/14 (beta rory)] Clopidogrel Bisulfate [Plavix] 75 mg PO DAILY #30 tablet 09/04/14 Aspirin [Aspirin, Baby] 81 mg PO DAILY 09/27/14 Montelukast [Singulair] 10 mg PO DAILY 09/21/15 Lisinopril/Hydrochlorothiazide 1 each PO DAILY #30 tablet 10/27/15 [Zestoretic 20-25 mg Tablet] Furosemide [Lasix] 40 mg PO DAILY 06/24/17 Insulin Glargine,Hum.rec.anlog 80 unit SQ DAILY 06/24/17 [Basaglar Kwikpen U-100] Lisinopril [Zestril] 20 mg PO QHS 06/24/17 Simvastatin [Zocor] 20 mg PO QHS 06/24/17 Symbicort 160-4.5 Mcg Inhaler 2 puff IH BID 06/24/17 traMADol [Ultram] 50 mg PO PRN PRN 06/24/17 Surgical History: cholecystectomy, tonsillectomy, - Psychiatric History: No pertinent psych hx 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 Paternal History Items: Diabetes, Heart Disease - Father w/ GA, age 62., Hypertension Review of Systems Constitutional: Reports: Fatigue. Denies: Anorexia, Chills, Fever, Night Sweats , Malaise, Weight Change Eyes: Denies: Vision Change HEENT: Reports: Post Nasal Drip. Denies: Difficulty Swallowing, Dysphasia, Nasal bleeding, Nasal Congestion, Sinus Congestion, Sore Throat Cardiovascular: Reports: Chest Tightness - resolved, Edema. Denies: Chest Pain , Chest Pressure, Light Headedness, Orthopnea, Palpitations, Paroxysmal Noc. Dyspnea, Syncope Respiratory: Reports: Cough, Shortness of breath upon exertion, Wheezing. Denies: Hemoptysis, Shortness of breath at rest, Sputum production Gastrointestinal: Reports: Nausea - resolved. Denies: Abdominal Pain, Constipation, Dyspepsia, Hematemesis, Hematochezia, Melena, Vomiting Genitourinary: Reports: Urgency. Denies: Dysuria, Frequency, Hematuria, Nocturia Gynecological: Denies: Breast symptoms Musculoskeletal: Reports: - - intermittent leg cramping. Denies: Muscle pain Skin: Reports: - - R groin cath site puncture. Denies: Rash, Wounds Neurological: Denies: Balance problems, Change in Speech, Confusion, Focal weakness, Numbness, Tingling, Tremor, Seizures Psychiatric: Denies: Anxiety, Depression Endocrine: Denies: Change in Body Habitus, Polydipsia, Polyuria Hematologic/ Lymphatic: Reports: Easy Bruising, Easy Bleeding. Denies: Adenopathy, Anemia, Hx of blood clot Subjective: Patient was seen and examined. She is lying flat on her back in bed secondary to heart cath this morning she is on bedrest. Denies any shortness of breath at rest. Does have a harsh, nonproductive cough. Denies any fever or chills. Her nausea and chest pain have resolved. Objective: Clinical Impression(s) from Imaging Studies Chest X-Ray 06/24/17 08:27 IMPRESSION: Degenerative changes, as described above. No demonstrated acute cardiopulmonary process. No interval change Electronically Signed: Colt Brown MD at 8:56 EDT , Service support , Chest CTA 06/24/17 09:15 IMPRESSION: Small right pleural effusion with right basilar atelectasis. Bibasilar scarring with areas of bronchiectasis. There are 2 small noncalcified nodules in the left lower lobe as described. Electronically Signed: Edilson Vaughn MD at 10:19 EDT Tel [phone], Service support , - Physical Exam General: Alert, Oriented x3, Cooperative, No apparent distress, Well developed, Well nourished, - - obese. No conversational dyspnea HEENT: Atraumatic, Normocephalic Oral: Moist Mucosa Neck: Supple, No Nodes, Trachea Midline, - - large neck circumference with redundant soft tissue Lungs: No rhonchi, No wheeze, No rales, Diminished, - - anterior coburn auscultated only, on bedrest for cath Cardiovascular: Regular rate, Regular Rhythm, Normal S1, Normal S2, No murmurs, No rub noted, No Gallop Abdomen: Bowel Sounds Present, Soft, Non Tender, Non-Distended, Obese Extremities: No clubbing, No cyanosis, Capillary Refill Less than 3 Seconds, No Calf Tenderness, Edema - trace bilat LE, Peripheral Pulses Normal Skin: No rashes, No breakdown, - - R groin opsite s/p cath Musculoskeletal: No Tenderness to Palpation of Joints or Extremities, No Muscle Wasting Lymphatic: No Cervical, Supraclavicular, or Inguinal Adenopathy Neurological: Cranial nerves II-XII grossly intact, Neuro grossly intact, Motor Exam 5/5 strength throughout Psych/Mental Status: Alert and oriented to time, place, person, mood and affect Vital Signs Temp Pulse Resp BP Pulse Ox 98.6 F 64 18 176/58 H 95 06/25/17 05:55 06/25/17 06:52 06/25/17 06:52 06/25/17 06:08 06/25/17 06:52 Oxygen Flow Rate (L/min) 2 Oxygen Delivery Method Room Air Weight: 226 lb 13.69 oz Body Mass Index (BMI) 42.8 Intake and Output for Last 24 Hours 06/23/17 06/24/17 06/25/17 23:59 23:59 23:59 Intake Total 480 / 480 Output Total 400 / 400 Balance 480 / 480 -400 / -400 Laboratory Tests Past 24 Hrs 06/24/17 06/24/17 06/25/17 13:05 16:47 02:05 WBC 9.0 RBC 3.15 L Hgb 10.2 L Hct 30.5 L MCV 96.8 MCH 32.4 H MCHC 33.4 RDW 13.5 RDW Differential 45.4 H Plt Count 164 MPV 8.9 Immature Gran % (Auto) 0.300 Neut % (Auto) 64.0 Lymph % (Auto) 21.8 Ralls % (Auto) 10.5 H Eos % (Auto) 3.2 Baso % (Auto) 0.2 Absolute Neuts (auto) 5.7 Absolute Lymphs (auto) 1.95 Total Counted Not Reportable PT INR APTT Sodium Potassium Chloride Carbon Dioxide Anion Gap BUN Creatinine Estim Creat Clear Calc Est GFR (MDRD) Af Amer Est GFR (MDRD) Non-Af BUN/Creatinine Ratio Glucose Calcium Troponin I 1.22 H* 1.96 H* Urine Color Urine Clarity Urine pH Ur Specific [place] Urine Protein Urine Glucose (UA) Urine Ketones Urine Occult Blood Urine Nitrite Urine Bilirubin Urine Urobilinogen Ur Leukocyte Esterase Urine RBC Urine WBC Ur Squamous Epith Cells Urine Bacteria Urine Mucus 06/25/17 06/25/17 06/25/17 02:05 02:05 02:05 WBC RBC Hgb Hct MCV MCH MCHC RDW RDW Differential Plt Count MPV Immature Gran % (Auto) Neut % (Auto) Lymph % (Auto) Ralls % (Auto) Eos % (Auto) Baso % (Auto) Absolute Neuts (auto) Absolute Lymphs (auto) Total Counted PT 15.0 H INR 1.2 APTT 32.7 Sodium 142 Potassium 4.6 Chloride 108 H Carbon Dioxide 28.0 Anion Gap 6 BUN 25 H Creatinine 1.13 H Estim Creat Clear Calc 33.46 Est GFR (MDRD) Af Amer 61 Est GFR (MDRD) Non-Af 50 L BUN/Creatinine Ratio 22.1 H Glucose 87 Calcium 8.1 L Troponin I 1.48 H* Urine Color Urine Clarity Urine pH Ur Specific [place] Urine Protein Urine Glucose (UA) Urine Ketones Urine Occult Blood Urine Nitrite Urine Bilirubin Urine Urobilinogen Ur Leukocyte Esterase Urine RBC Urine WBC Ur Squamous Epith Cells Urine Bacteria Urine Mucus 06/25/17 03:40 WBC RBC Hgb Hct MCV MCH MCHC RDW RDW Differential Plt Count MPV Immature Gran % (Auto) Neut % (Auto) Lymph % (Auto) Ralls % (Auto) Eos % (Auto) Baso % (Auto) Absolute Neuts (auto) Absolute Lymphs (auto) Total Counted PT INR APTT Sodium Potassium Chloride Carbon Dioxide Anion Gap BUN Creatinine Estim Creat Clear Calc Est GFR (MDRD) Af Amer Est GFR (MDRD) Non-Af BUN/Creatinine Ratio Glucose Calcium Troponin I Urine Color Yellow Urine Clarity Clear Urine pH 7.0 Ur Specific [place] 1.010 Urine Protein Negative Urine Glucose (UA) Normal Urine Ketones Negative Urine Occult Blood Negative Urine Nitrite Negative Urine Bilirubin Negative Urine Urobilinogen 1 H Ur Leukocyte Esterase 25 H Urine RBC 0 SEEN Urine WBC 0-5 SEEN Ur Squamous Epith Cells 0-5 SEEN Urine Bacteria RARE Urine Mucus 0 SEEN POC Glucose 06/25/17 06/25/17 06/24/17 06:25 06:00 21:34 POC Glucose 136 H 78 173 H 06/24/17 16:15 POC Glucose 216 H Assessment/Plan RECOMMENDATIONS 1. Wean oxygen supplementation to keep saturations >90%. 2. Encourage incentive spirometer and Acapella 3. Increase activity as tolerated after bedrest complete 4. Continue aerosols 5. Gentle diureses for effusion given dye load 6. Cardiology following 7. Ambulatory pulse ox prior to discharge 8. Patient has appointment in the pulmonary clinic next week, at which time baseline pulmonary function test can be obtained and follow up for questionable lung nodules. A repeat CT of the chest can be ordered at that time as well. 9. Okay to discharge today from pulmonary perspective, once bedrest is up IMPRESSIONS 1. Left lower lobe lung nodules/pleural effusions CT of the chest showed 2 small lung nodules in the left lower lobe. Patient will require repeat CT of the chest for follow-up in 3-6 months. This can be arranged in the pulmonary clinic. Patient did have pleural effusion on imaging. Also has evidence of bronchiectasis and atelectasis seen on CT, which could result in similar appearance on imaging. Aggressive pulmonary toileting with Acapella and incentive spirometer, patient should continue at home. Pleural effusion may be etiology of her ongoing cough. She would benefit from more aggressive diuresis, however she has a mildly elevated creatinine with recent dye load for her heart cath. She will follow-up in the pulmonary clinic next week as scheduled. Okay to discharge from pulmonary perspective. 2. Self-reported asthma, known sleep apnea Does not appear to be an exacerbation at this time, no significant wheezing. Was just treated with steroids, no indication for repeating at this time. Has been compliant with her CPAP at home. Her last polysomnogram was in 2016, would benefit from repeat study to ensure patient is on the correct settings. 3. Type 2 diabetes mellitus/morbid obesity/hyperlipidemia/hypertension/history of tobacco abuse, in remission Complicates care, management, recovery, and prognosis. Patient advised on benefits of weight loss. Encouraged ongoing smoking cessation. Continue home medications as indicated. Thank you for the opportunity to participate in this patient's care, please not hesitate contact us with any further questions or concerns. This note was generated with Dragon dictation software. It may contain incorrect words, spelling, and punctuation that were not noted in checking the note before signing.
[2017-06-25] MEDS: hydroCHLOROthiazide 25 MG Tablet PO (10:00)
[2017-06-25] MEDS: glipiZIDE XL 5 MG Tablet 10 MG PO (10:00)
[2017-06-25 10:21] LABS: Bedside Glucose 83 mg/dL (70-110)
--- NOTE | 2017-06-25 11:23 | CASEMGMT ---
Face to Face with patient for initial transition planning/care coordination assessment. LEONIDES GRAY introduced self and role at [facility], vpices understanding and consents to assessment at this time. Pt is lying in bed in no distress at this time. Pt is A/O x4 at this time and answers all questions appropriately at this time. Care providers, pharmacy, and demographics verified. See attached link. Pt voices no further concerns/needs at this time. Advised pt to ask for CM if any further questions/concerns/needs arise, voices understanding. CM to follow for any further concerns/needs. PLAN: [place] LEONIDES GRAY
--- NOTE | 2017-06-25 13:55 | PCM.DC ---
You will use the following diet at home:: Calorie/Carbohydrate Controlled (specify 1200, 1400, etc) - 1800 mohamud, Cardiac Your food should be the consistency of: Regular Discharge Activity: Return to Normal Activity Weight Bearing Status: Weight bearing as tolerated Call your doctor if you observe: Fever of 101 or Higher, Shortness of breath, Dizziness, Fainting spells, Chest pain, Increased palpitations (irregular heartbeat), Uncontrolled pain Allergies/Adverse Reactions: Allergies hydrocodone bitartrate [From Vicodin] Allergy (Verified 06/24/17 08:13) Shortness of breath Penicillins Allergy (Verified 06/24/17 08:13) Hives oxycodone HCl [From Percocet] Adverse Reaction (Verified 06/24/17 08:13) Rash Medications to take at Discharge Glipizide [Glucotrol Xl] 10 mg PO BID 09/02/14 Metoprolol Tartrate [Lopressor (beta rory)] 25 mg PO DAILY 09/02/14 Metoprolol Tartrate [Lopressor (beta rory)] 50 mg PO QHS 09/02/14 Aspirin [Aspirin, Baby] 81 mg PO DAILY 09/27/14 Montelukast [Singulair] 10 mg PO DAILY 09/21/15 Lisinopril/Hydrochlorothiazide [Zestoretic 20-25 mg Tablet] 1 each PO DAILY #30 tablet 10/27/15 Furosemide [Lasix] 40 mg PO DAILY 06/24/17 Insulin Glargine,Hum.rec.anlog [Basaglar Kwikpen U-100] 80 unit SQ DAILY 06/24/17 Lisinopril [Zestril] 20 mg PO QHS 06/24/17 Simvastatin [Zocor] 20 mg PO QHS 06/24/17 Symbicort 160-4.5 Mcg Inhaler 2 puff IH BID 06/24/17 traMADol [Ultram] 50 mg PO PRN PRN 06/24/17 Primary Care Physician: Aristides Quispe MD [Primary Care Provider] - Please follow up with your Primary Care Physician in: 3-4 WEEKS. Please Follow Up With: Angus Erickson MD When: SCHEDULED. Please Follow Up With: Flex Lynn MD When: SCHEDULED.
--- NOTE | 2017-06-25 16:18 | PCM.DC.SUM ---
Discharge Date and Diagnosis Date of Admission: 06/24/17 Date of Discharge: 06/25/17 - Primary Discharge Diagnosis #1 acute non-ST elevation [place]. #2 left lower lung nodules. #3 elevated d-dimer, CTA negative for PE or dissection. #4 recent history of pneumonia, completed treatment as outpatient. - Secondary Discharge Diagnosis Chronic Problems Asthma (Chronic) History of tobacco use (Chronic) in remission, 66-pk-yr history Hypertension (Chronic) Hyperlipidemia (Chronic) History of TIA (transient ischemic attack) (Chronic) Morbid obesity with BMI of 40.0-44.9, adult (Chronic) Type II diabetes mellitus (Chronic) Hospital Course and Treatment Imaging Results: Clinical Impression(s) from Imaging Studies Chest X-Ray 06/24/17 08:27 IMPRESSION: Degenerative changes, as described above. No demonstrated acute cardiopulmonary process. No interval change Electronically Signed: Colt Brown MD at 8:56 EDT , Service support , Chest CTA 06/24/17 09:15 IMPRESSION: Small right pleural effusion with right basilar atelectasis. Bibasilar scarring with areas of bronchiectasis. There are 2 small noncalcified nodules in the left lower lobe as described. Electronically Signed: Edilson Vaughn MD at 10:19 EDT Tel [phone], Service support , Dr. Lynn, cardiology. Dr. Erickson, pulmonology. Operations: - Procedures: Cardiac catheterization, EKG Summary of Care Provided: Patient seen and examined on the day of discharge and appeared to be stable to be discharged home. His shortness of breath improved as well as cough. She has no more chest pain. Her vital signs are stable and she was able to maintain her pulse ox on room air. - Physical Exam General: Alert, Oriented x3, Cooperative, No apparent distress. HEENT: Atraumatic, PERRLA, EOMI. Neck: Supple, No JVD, Negative Carotid Bruits, Trachea Midline, Thyroid Normal. Lungs: Clear to auscultation, Normal air movement, No rhonchi, No wheeze, No rales. Cardiovascular: Regular rate, Regular Rhythm, Normal S1, Normal S2, PMI Normal. Abdomen: Bowel Sounds Present, Soft, Non Tender, Non-Distended, No Hepato-splenomegaly. Extremities: No clubbing, No cyanosis, No edema Skin: No rashes, No breakdown Neurological: Neuro grossly intact Hospital course: The patient is a 72 year old F presented to the emergency room because of sudden onset retrosternal chest pain and she was found to have acute non-ST elevation [place]. Patient was treated for pneumonia as outpatient with antibiotics and she completed 7 days of antibiotics. Her initial troponin was negative and subsequent troponin was highly elevated. An EKG revealed no acute ST elevation. A chest x-ray showed no acute infiltrate, consolidation or effusion. CTA chest done for elevated d-dimer and showed no evidence of PE or dissection but did show small right pleural effusion and 2 small nodules in the left lower lobe. Cardiology consulted and patient was taken for cardiac catheterization that showed nonobstructive coronary artery disease and recommendations was for to continue medical treatment. Pulmonology consulted for left lower lobe small nodules and recommended to repeat CT scan chest as well as lung function test that will be done as outpatient. She has more right-sided pleural effusion which could be due to the recent pneumonia that she was treated for. As mentioned above, patient completed 1 week treatment for antibiotics for pneumonia. She remained afebrile throughout admission and no leukocytosis. Patient discharged home in a stable medical condition, discharged on Lasix 40 mg p.o. daily, Plavix discontinued according to cardiology, other home medications continued including beta blockers, lisinopril and aspirin, plan to follow-up with PCP in 2-4 weeks, follow-up with pulmonology this coming week and follow-up with cardiology according to Dr. Lynn recommendation. Discharge Activity: Return to Normal Activity Weight Bearing Status: Weight bearing as tolerated Call your doctor if you observe: Fever of 101 or Higher, Shortness of breath, Dizziness, Fainting spells, Chest pain, Increased palpitations (irregular heartbeat), Uncontrolled pain Home Medications: Medications to take at Discharge Glipizide [Glucotrol Xl] 10 mg PO BID 09/02/14 Metoprolol Tartrate [Lopressor (beta carlos)] 25 mg PO DAILY 09/02/14 Metoprolol Tartrate [Lopressor (beta carlos)] 50 mg PO QHS 09/02/14 Aspirin [Aspirin, Baby] 81 mg PO DAILY 09/27/14 Montelukast [Singulair] 10 mg PO DAILY 09/21/15 Lisinopril/Hydrochlorothiazide [Zestoretic 20-25 mg Tablet] 1 each PO DAILY #30 tablet 10/27/15 Furosemide [Lasix] 40 mg PO DAILY 06/24/17 Insulin Glargine,Hum.rec.anlog [Basaglar Kwikpen U-100] 80 unit SQ DAILY 06/24/17 Lisinopril [Zestril] 20 mg PO QHS 06/24/17 Simvastatin [Zocor] 20 mg PO QHS 06/24/17 Symbicort 160-4.5 Mcg Inhaler 2 puff IH BID 06/24/17 traMADol [Ultram] 50 mg PO PRN PRN 06/24/17 Primary Care Physician: Aristides Quispe MD [Primary Care Provider] - Please follow up with your Primary Care Physician in: 3-4 WEEKS. Please Follow Up With: Angus Erickson MD When: SCHEDULED. Please Follow Up With: Flex Lynn MD When: SCHEDULED. Please Follow Up With: Aristides Quispe MD Disposition: Home Minutes spent on discharge:: 34 Patient Condition:: Stable Medical Necessity - Tobacco Use Smoking Status: Former smoker Tobacco Use: Cigarettes Meaningful Use Info Meaningful Use Diagnoses (Choose all that apply): AMI - AMI Aspirin given w/in 24hrs of arrival?: Yes ASA at discharge?: Yes Statins at discharge?: Yes Bradley/ARB at discharge?: Yes Beta Carlos at discharge?: Yes Done w/ Acute [place] measure.: Yes Code Visit Inpatient E&M: 84505 Disch Hosp
--- NOTE | 2017-06-28 15:52 | CASEMGMT ---
LEONIDES GRAY DISCHARGE F/U PHONE CALL LACE: 9 STRATA: 3 CALL DATE: 06/28/17 DISCHARGE DATE: 06/25/17 TIME OF CALL: [id number] DURATION: 2 MINUTES ADM DX: CHEST PAIN PT STATES HAS BEEN DOING 'GREAT AND GETTING STRONGER' SINCE DISCHARGE. PT STATES NO QUESTIONS REGARDING D/C INSTRUCTIONS OR MEDS. PT STATES PLANS TO KEEP F/U APPOINTMENTS WHICH WERE ALREADY SCHEDULED. PT STATES THAT 'EVERYONE WAS WONDERFUL AND I HAD NO COMPLAINTS' WITH HER ADMISSION. PT PROVIDED WITH THIS LEONIDES GRAY CONTACT INFO FOR ANY FURTHER QUESTIONS/CONCERNS. PT THANKED THIS RN ISAAC FOR THE CALL. NEFTALI COYLE CM
== END 2017-06-25 13:56 | disposition home or self-care (01) | DRG 281 ==
LOC: PCU 12:04
PROVIDERS: Internal Medicine Cardiovascular Disease; Admitting Provider Hospitalist; Emergency Provider Emergency Medicine; Family Provider Family Medicine; PCP Family Medicine; Visit Provider Hospitalist
DX: I21.4 Non-ST elevation (NSTEMI) myocardial infarction (principal); Z68.41 Body mass index [BMI] 40.0-44.9, adult; J98.11 Atelectasis; J90 Pleural effusion, not elsewhere classified; E66.01 Morbid (severe) obesity due to excess calories; E11.9 Type 2 diabetes mellitus without complications; E78.5 Hyperlipidemia, unspecified; I10 Essential (primary) hypertension; I25.10 Atherosclerotic heart disease of native coronary artery without angina pectoris; J45.909 Unspecified asthma, uncomplicated; Z87.01 Personal history of pneumonia (recurrent); Z87.891 Personal history of nicotine dependence; Z86.73 Personal history of transient ischemic attack (TIA), and cerebral infarction without residual deficits; Z71.3 Dietary counseling and surveillance; G47.30 Sleep apnea, unspecified; I25.2 Old myocardial infarction
CPT/HCPCS: 36415; 71045; 71275; 80048; 81001; 82962; 84484; 85025; 85379; 85610; 85730; 93005; 93458; 94640; 94667; 97802; 99152; 99283; J7030; J7040; Q9967; A4216; C1769; C1894; J1940

== ENCOUNTER 2017-09-16 12:58 | Inpatient (IN) | payer MEDICARE, OTHER, SELFPAY ==
[2017-09-16] VITALS (12 sets, daily range): BP systolic 124–192; BP diastolic 49–107; PULSE 59–82; RESP 14–20; TEMP 36.7–37.1; O2SAT 92–99; BMI 41.5; BMI 42.2
--- NOTE | 2017-09-16 14:28 | EKG12_ITS ---
Test Reason : SOB Blood Pressure : / mmHG Vent. Rate : 062 BPM Atrial Rate : 062 BPM P-R Int : 180 ms QRS Dur : 092 ms QT Int : 434 ms P-R-T Axes : 064 027 010 degrees QTc Int : 440 ms Normal sinus rhythm Poor R wave progression Confirmed by NIRMAL DONALDSON, DELFINA ([id number]), medical transcription editor NEFTALY STANTON ([id number]) on 09/19/2017 1:22:19 PM Referred By: RENNY/TIAN Confirmed By:DELFINA KINNEY MD
--- NOTE | 2017-09-16 14:43 | RAD_ITS ---
STUDY: X-RAY CHEST REASON FOR EXAM: Female, 72 years old. Shortness of breath upon exertion. History of asthma. TECHNIQUE: PA and lateral views of the chest. COMPARISON: Comparison is made with prior study dated June 24, 2017. FINDINGS: EKG electrodes are seen. Small right pleural effusion with underlying infiltration and/or atelectasis. Mild increased markings are also seen at the left lung base. Radiographic follow-up is recommended. There is no demonstrated pleural abnormality. There is borderline cardiomegaly. Normal mediastinum and alfredo. Normal visualized pulmonary arteries. There is atherosclerotic calcification of the aortic arch with tortuosity. There are diffuse degenerative changes of the visualized thoracic spine. Normal visualized ribs, clavicles, and shoulders. There is no demonstrated abnormality of the visualized soft tissue structures of the upper abdomen. RAD/Chest PA and Lateral IMPRESSION: Small right pleural effusion with underlying infiltration and/or atelectasis. Atelectasis and/or infiltrate at the left lung base. Radiographic follow-up is recommended. Electronically Signed: Edilson Vaughn MD at 15:11 EDT Tel [phone], Service support ,
[2017-09-16 14:50] LABS: Absolute Lymphocyte Count 1.27 X10^3/ul (0.83-4.51); Absolute Neutrophil Count 4.6 X10^3/uL (2.0-7.7); Basophil# 0.02 X10^3/uL; Basophil% 0.3 % (0-1); Eosinophil# 0.11 X10^3/uL; Eosinophils% 1.7 % (0-5); Hematocrit 27.6 % (37-47); Hemoglobin 8.6 g/dl (12.0-15.0); Lymphocyte # 1.27 X10^3/ul (4.0); Lymphocyte % 19.1 % (19-41); Mean Corp Hgb Conc 31.2 g/gl (32-36); Mean Corpuscular Hgb 30.7 pg (27.0-32.0); Mean Corpuscular Volume 98.6 fL (81-99); Mean Platelet Vol. 9.5 fl (6.2-12.0); Monocyte# 0.63 X10^3/uL; Monocyte% 9.5 % (0-10); Neutrophil # 4.62 X10^3/uL (2.7-7.7); Neutrophil % 69.2 % (47-70); Platelet Count 200 K/mm3 (150-450); RBC Distribution Width CV 13.8 % (11.6-14.6); RBC Distribution Width SD 47.5 fl (35.1-43.9); White Blood Count 6.7 K/mm3 (4.4-11.0)
[2017-09-16 14:52] LABS: POSITIVE COUNT NO; POSITIVE DIFFERENTIAL NO; POSITIVE MORPHOLOGY NO
[2017-09-16 14:58] LABS: ALB/GLOB Ratio 0.6 RATIO (0.9-2.4); AST(SGOT) 21 U/L (15-37); Alanine Aminotransfer ALT/SGPT 20 U/L (13-56); Albumin, Serum 2.8 g/dL (3.2-5.0); Alkaline Phosphatase 101 U/L (45-117); Anion Gap 9 (5-15); BUN 31 mg/dL (7-18); BUN/Creat Ratio 22.3 RATIO (10-20); Calcium,Total 8.4 mg/dL (8.5-10.1); Chloride 103 mmol/L (98-107); Creatinine, Serum 1.39 mg/dL (0.55-1.02); EST Glomerular Filtration Rate 40 mL/min (>60); Est Glom Filt Rate - Afr Amer 48 mL/min (>60); Globulin 4.5 g/dL (2.2-4.2); Glucose 195 mg/dL (74-106); Potassium 4.2 mmol/L (3.5-5.1); Protein, Total 7.3 g/dL (6.4-8.2); Sodium Level 139 mmol/L (136-145)
[2017-09-16 15:01] LABS: D-Dimer Quantitative (DVT/PE) 2.83 FEU/ug/m (0.27-0.49)
[2017-09-16 15:17] LABS: BNP,B-Type NATRIURETIC PEPTIDE 244.3 pg/mL (0-100)
--- NOTE | 2017-09-16 15:49 | ED.VISSUMM ---
- ER Visit Summary Date of Service: 09/16/17 Chief Complaint: Shortness of breath History of Present Illness: The patient is a 72 F who presents with shortness of breath that has been getting worse over the past 6 days. Patient states that it has gradually gotten worse. Patient states her breathing is worse with any exertion. Patient denies any cough. Patient denies any rhinorrhea or sore throat. Patient admits to chills at home but denies any fevers. Patient denies any chest pain. Patient states she feels like she just cannot get enough oxygen into her lungs. Patient does admit to some swelling of her lower extremities but states this has improved recently. Physical Examination: Vital signs are stable. Patient is afebrile. Patient is in no acute distress. Oral mucosa is pink and moist. Neck is supple. There is no JVD noted. Heart was regular rate and rhythm. Lungs were diminished bilaterally. They were otherwise clear. Abdomen is soft and nontender. Cranial nerves II through XII are intact. There are no focal motor or sensory deficits noted. There is 1+ edema of the lower extremities slightly worse on the left. The remaining physical exam is within normal limits. Test Results: CBC showed anemia with a hemoglobin of 8.6. BUN was slightly elevated at 31. Creatinine was slightly elevated at 1.39. Patient's GFR was only 40. BNP was normal at 244.3. D-dimer was elevated at 2.83. Chest x-ray shows atelectasis versus infiltrate in the left base. There is also a small right pleural effusion. Emergency Department Course and Treatment: Patient was resting comfortably on reevaluation. However, patient states that she only gets short of breath with any exertion. Case was discussed with Dr. Martinez. He will admit the patient to his service. Patient understood and was agreeable with the plan. All questions were answered. Disposition: Admit to hospital Impression: Dyspnea on exertion, anemia This note was generated with [employer] dictation software. It may contain incorrect words, spelling, and punctuation that were not noted in review of the chart prior to signing ED Disposition - Plan for ED Patient: Disposition: Acute Care Hospital [facility] Chief Complaint: Shortness of Breath Diagnosis: Dyspnea on exertion, Anemia Referrals: Aristides Quispe MD [Primary Care Provider] -
--- NOTE | 2017-09-16 15:52 | ED.DCSUM_ITS ---
- ER Visit Summary Date of Service: 09/16/17 Chief Complaint: Shortness of breath History of Present Illness: The patient is a 72 F who presents with shortness of breath that has been getting worse over the past 6 days. Patient states that it has gradually gotten worse. Patient states her breathing is worse with any exertion. Patient denies any cough. Patient denies any rhinorrhea or sore throat. Patient admits to chills at home but denies any fevers. Patient denies any chest pain. Patient states she feels like she just cannot get enough oxygen into her lungs. Patient does admit to some swelling of her lower extremities but states this has improved recently. Physical Examination: Vital signs are stable. Patient is afebrile. Patient is in no acute distress. Oral mucosa is pink and moist. Neck is supple. There is no JVD noted. Heart was regular rate and rhythm. Lungs were diminished bilaterally. They were otherwise clear. Abdomen is soft and nontender. Cranial nerves II through XII are intact. There are no focal motor or sensory deficits noted. There is 1+ edema of the lower extremities slightly worse on the left. The remaining physical exam is within normal limits. Test Results: CBC showed anemia with a hemoglobin of 8.6. BUN was slightly elevated at 31. Creatinine was slightly elevated at 1.39. Patient's GFR was only 40. BNP was normal at 244.3. D-dimer was elevated at 2.83. Chest x-ray shows atelectasis versus infiltrate in the left base. There is also a small right pleural effusion. Emergency Department Course and Treatment: Patient was resting comfortably on reevaluation. However, patient states that she only gets short of breath with any exertion. Case was discussed with Dr. Martinez. He will admit the patient to his service. Patient understood and was agreeable with the plan. All questions were answered. Disposition: Admit to hospital Impression: Dyspnea on exertion, anemia This note was generated with [employer] dictation software. It may contain incorrect words, spelling, and punctuation that were not noted in review of the chart prior to signing ED Disposition - Plan for ED Patient: Disposition: Acute Care Hospital [facility] Chief Complaint: Shortness of Breath Diagnosis: Dyspnea on exertion, Anemia Referrals: Aristides Quispe MD [Primary Care Provider] -
--- NOTE | 2017-09-16 16:29 | NURSING ---
PCU DYSPNEA, ANEMIA MERA
--- NOTE | 2017-09-16 16:42 | PCM.HP.STD ---
<Vanessa Osuna - Last Filed: 09/16/17 17:45> Problem List (1) Dyspnea on exertion Status: Acute (2) Anemia Status: Acute (3) Non-ST elevation (NSTEMI) myocardial infarction Status: Resolved Comment: 08/2014 and 06/2017 (4) Personal history of transient ischemic attack (TIA), and cerebral infarction without residual deficits Status: Chronic (5) Nonrheumatic mitral (valve) stenosis Status: Chronic (6) Other secondary pulmonary hypertension Status: Chronic (7) Atherosclerotic heart disease of [place] coronary artery without angina pectoris Status: Chronic (8) Chronic asthma Status: Chronic Qualifiers: Asthma severity: moderate Asthma persistence: persistent Asthma complication type: uncomplicated Qualified Code(s): J45.40 - Moderate persistent asthma, uncomplicated (9) Pulmonary nodules/lesions, multiple Status: Chronic (10) Pleural effusion Status: Chronic (11) Bronchiectasis Status: Chronic Qualifiers: Bronchiectasis type: uncomplicated Qualified Code(s): J47.9 - Bronchiectasis, uncomplicated (12) LADI (obstructive sleep apnea) Status: Chronic (13) History of tobacco use Status: Chronic Comment: in remission, 66-pk-yr history (14) Hypertension Status: Chronic (15) Hyperlipidemia Status: Chronic (16) History of TIA (transient ischemic attack) Status: Chronic (17) Morbid obesity with BMI of 40.0-44.9, adult Status: Chronic (18) Type II diabetes mellitus Status: Chronic History of Present Illness Date of Admission: 09/16/17 Chief Complaint: Dyspnea on exertion. The patient is a 72 year old F who presents with ongoing dyspnea with exertion which has worsened since Saturday. She denies cough, fever, chills. Denies chest pain. She reports an episode approximately 1 week ago where she had severe left leg pain which lasted approximately 5 minutes and then resolved. She states she frequently has Reji horses in her legs at nighttime. Patient states she is undergoing outpatient evaluation with Dr. Erickson for pulmonary nodules and suspected COPD. She states she was to have an outpatient CTA of chest the of this month and pulmonary function test/6 minute walk in office as well. Patient denies lightheadedness, dizziness. Denies increased shortness of breath with lying flat. Patient states she has significant shortness of breath with minimal exertion/ambulation. She notes left lower extremity swelling which she states is chronic, however worse in the past 2 weeks. She states she follows a low-salt diet. Patient also reports diarrhea in the past day. She states she took Imodium prior to admission. She denies blood in stool. Her past medical history includes type 2 diabetes mellitus, history of TIA, hypertension, hyperlipidemia, [id number] smoking history, obstructive sleep apnea, chronic pleural effusions, bronchiectasis, pulmonary nodules, chronic asthma, pulmonary hypertension, mitral valve stenosis, NSTEMI X2. Past Medical History Past Medical History (Chronic Problems): Chronic Problems (Last Updated 07/15/17 @ 10:50 by Nathalia Keyes) Personal history of transient ischemic attack (TIA), 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) Nonrheumatic mitral (valve) stenosis (Chronic) Other secondary pulmonary hypertension (Chronic) Atherosclerotic heart disease of [place] coronary artery without angina pectoris (Chronic) Chronic asthma (Chronic) Pulmonary nodules/lesions, multiple (Chronic) Pleural effusion (Chronic) Bronchiectasis (Chronic) LADI (obstructive sleep apnea) (Chronic) History of tobacco use (Chronic) in remission, 66-pk-yr history Hypertension (Chronic) Hyperlipidemia (Chronic) History of TIA (transient ischemic attack) (Chronic) Morbid obesity with BMI of 40.0-44.9, adult (Chronic) Type II diabetes mellitus (Chronic) Medical History: Medical History (Last Updated 07/15/17 @ 10:50 by Nathalia Keyes) Non-ST elevation (NSTEMI) myocardial infarction (Chronic) Onset Date: ~06/2017 I21.4 08/2014 and 06/2017 Personal history of transient ischemic attack (TIA), 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) Z86.73 Nonrheumatic mitral (valve) stenosis (Chronic) I34.2 Other secondary pulmonary hypertension (Chronic) I27.29 Atherosclerotic heart disease of [place] coronary artery without angina pectoris (Chronic) I25.10 LADI (obstructive sleep apnea) (Chronic) G47.33 Asthma (Chronic) J45.909 History of tobacco use (Chronic) Z87.891 in remission, 66-pk-yr history Hypertension (Chronic) I10 Hyperlipidemia (Chronic) E78.5 History of TIA (transient ischemic attack) (Chronic) Morbid obesity with BMI of 40.0-44.9, adult (Chronic) E66.01, Z68.41 Type II diabetes mellitus (Chronic) E11.9 Allergies doxycycline Allergy (Severe, Verified 09/16/17 13:01) Rash nitrofurantoin Allergy (Severe, Verified 09/16/17 13:01) asthma attack tiotropium [From Spiriva with HandiHaler] Allergy (Severe, Verified 09/16/17 13:01) difficulty breathing hydrocodone bitartrate [From Vicodin] Allergy (Verified 09/16/17 13:01) Shortness of breath Penicillins Allergy (Verified 09/16/17 13:01) Hives azithromycin Adverse Reaction (Intermediate, Verified 09/16/17 13:01) Diarrhea cephalexin Adverse Reaction (Intermediate, Verified 09/16/17 13:01) Diarrhea indomethacin [From Indocin] Adverse Reaction (Intermediate, Verified 09/16/17 13:01) Diarrhea ketoprofen [From Orudis] Adverse Reaction (Intermediate, Verified 09/16/17 13:01) Diarrhea metformin [From Glucophage] Adverse Reaction (Intermediate, Verified 09/16/17 13:01) Diarrhea sulfamethoxazole [From Septra] Adverse Reaction (Intermediate, Verified 09/16/17 13:01) sore tongue trimethoprim [From Septra] Adverse Reaction (Intermediate, Verified 09/16/17 13:01) sore tongue oxycodone HCl [From Percocet] Adverse Reaction (Verified 09/16/17 13:01) Rash Home Medications: Ambulatory Orders Medication Instructions Recorded Glipizide [Glucotrol Xl] 10 mg PO BID 09/02/14 Metoprolol Tartrate [Lopressor 25 mg PO DAILY 09/02/14 (beta rory)] Metoprolol Tartrate [Lopressor 50 mg PO QHS 09/02/14 (beta rory)] Aspirin [Aspirin, Baby] 81 mg PO DAILY 09/27/14 Montelukast [Singulair] 10 mg PO DAILY 09/21/15 Furosemide [Lasix] 40 mg PO DAILY 06/24/17 Insulin Glargine,Hum.rec.anlog 80 unit SQ DAILY 06/24/17 [Basaglar Kwikpen U-100] Lisinopril [Zestril] 20 mg PO QHS 06/24/17 Simvastatin [Zocor] 20 mg PO QHS 06/24/17 Symbicort 160-4.5 Mcg Inhaler 2 puff IH BID 06/24/17 traMADol [Ultram] 50 mg PO PRN PRN 06/24/17 albuterol sulfate HFA 90 2 puff INHALATION Q4H PRN g 07/03/17 mcg/actuation aerosol inhaler Lisinopril/Hydrochlorothiazide 1 each PO DAILY 09/16/17 [Zestoretic 20-25 mg Tablet] Surgical History: Surgical History (Last Reviewed 09/16/17 @ 17:02 by KIAN Baer) History of left heart catheterization Onset Date: ~06/2017 Z98.890 H/O arthroscopy of shoulder Z98.890 History of carpal tunnel surgery Z92.89 History of cholecystectomy Z90.49 History of tonsillectomy and adenoidectomy Z98.890 Surgical History: cholecystectomy, tonsillectomy, - Psychiatric History: No pertinent psych hx 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 Paternal Family History: Family History (Last Reviewed 09/16/17 @ 17:04 by KIAN Baer) Father CAD (coronary artery disease) Diabetes Hypertension History Items: Diabetes, Heart Disease - Father w/ [place], age 62., Hypertension Review of Systems Constitutional: Denies: Chills, Fever, Weight Change HEENT: Denies: Head Aches, Sinus Congestion, Sinus Drainage Cardiovascular: Reports: Edema - Bilateral lower extremities, left greater than right. Denies: Chest Pain, Light Headedness, Palpitations, Syncope Respiratory: Reports: Shortness of Breath - Worse with exertion. Denies: Cough, Sputum production Gastrointestinal: Reports: Diarrhea. Denies: Abdominal Pain, Nausea, Vomiting Genitourinary: Denies: Dysuria Musculoskeletal: Reports: - - Bilateral leg cramping at night. Denies: Joint Pain, Joint Tenderness Skin: Denies: Rash, Wounds Neurological: Denies: Numbness, Tingling, Focal weakness Psychiatric: Denies: Anxiety, Depression, Homicidal Ideations, Suicidal Ideations Hematologic/ Lymphatic: Denies: Easy Bruising, Easy Bleeding VTE Information - Inpt Only VTE Present on Admission: No VTE Mechan Device Prophylaxis: SCD's VTE Pharm Prophylaxis ordered?: No Reason prophylaxis not ordered:: Medical Contraindication - Acute anemia Patient Problems: Active and Suspected Problems (Last Updated 07/15/17 @ 10:50 by Nathalia Keyes) Dyspnea on exertion (Acute) Anemia (Acute) - Physical Exam General: Alert, Oriented x3, Cooperative, No apparent distress HEENT: Atraumatic, PERRLA, EOMI, Normocephalic Oral: Moist Mucosa Neck: Supple, No JVD, Negative Carotid Bruits Lungs: Diminished, Wheezes - Minimal faint scattered expiratory wheezing. Globally diminished. Cardiovascular: Regular rate, Regular Rhythm, Normal S1, Normal S2, No murmurs Abdomen: Bowel Sounds Present, Soft, Non Tender, Non-Distended, Obese Extremities: No cyanosis, Capillary Refill Less than 3 Seconds, Edema - +2 left lower extremity Skin: No rashes, No breakdown Musculoskeletal: No Tenderness to Palpation of Joints or Extremities Neurological: Cranial nerves II-XII grossly intact, Neuro grossly intact Psych/Mental Status: Normal Affect, Appropriate Vital Signs Temp Pulse Resp BP Pulse Ox 98.1 F 68 14 136/70 H 99 09/16/17 13:00 09/16/17 15:07 09/16/17 15:07 09/16/17 15:07 09/16/17 15:07 Oxygen Delivery Method Room Air Weight: 99.8 kg Body Mass Index (BMI) 41.5 Finger Stick Blood Glucose 241 Laboratory Tests Past 24 Hrs 09/16/17 09/16/17 09/16/17 13:58 13:58 13:58 WBC 6.7 RBC 2.80 L Hgb 8.6 L Hct 27.6 L MCV 98.6 MCH 30.7 MCHC 31.2 L RDW 13.8 RDW Differential 47.5 H Plt Count 200 MPV 9.5 Immature Gran % (Auto) 0.200 Neut % (Auto) 69.2 Lymph % (Auto) 19.1 [place] % (Auto) 9.5 Eos % (Auto) 1.7 Baso % (Auto) 0.3 Absolute Neuts (auto) 4.6 Absolute Lymphs (auto) 1.27 Total Counted Not Reportable D-Dimer Quant (PE/DVT) 2.83 H* Sodium 139 Potassium 4.2 Chloride 103 Carbon Dioxide 27.0 Anion Gap 9 BUN 31 H Creatinine 1.39 H Estim Creat Clear Calc 27.20 Est GFR (MDRD) Af Amer 48 L Est GFR (MDRD) Non-Af 40 L BUN/Creatinine Ratio 22.3 H Glucose 195 H Calcium 8.4 L Total Bilirubin 0.60 AST 21 ALT 20 Alkaline Phosphatase 101 Troponin I < 0.015 B-Natriuretic Peptide Total Protein 7.3 Albumin 2.8 L Globulin 4.5 H Albumin/Globulin Ratio 0.6 L 09/16/17 13:58 WBC RBC Hgb Hct MCV MCH MCHC RDW RDW Differential Plt Count MPV Immature Gran % (Auto) Neut % (Auto) Lymph % (Auto) [place] % (Auto) Eos % (Auto) Baso % (Auto) Absolute Neuts (auto) Absolute Lymphs (auto) Total Counted D-Dimer Quant (PE/DVT) Sodium Potassium Chloride Carbon Dioxide Anion Gap BUN Creatinine Estim Creat Clear Calc Est GFR (MDRD) Af Amer Est GFR (MDRD) Non-Af BUN/Creatinine Ratio Glucose Calcium Total Bilirubin AST ALT Alkaline Phosphatase Troponin I B-Natriuretic Peptide 244.3 H Total Protein Albumin Globulin Albumin/Globulin Ratio Assessment/Plan All Active Problems (Last Updated 07/15/17 @ 10:50 by Nathalia Keyes) Dyspnea on exertion (Acute) Anemia (Acute) Non-ST elevation (NSTEMI) myocardial infarction (Resolved ~06/2017) 1. Dyspnea on exertion in the context of multiple chronic lung concerns including bronchiectasis/chronic pleural effusions/pulmonary nodules/pulmonary hypertension-chest x-ray on admission shows right pleural effusion with underlying infiltration and/or atelectasis. Atelectasis and/or infiltrate of the left lung base. BNP 244. Echocardiogram October 2015 demonstrated an estimated ejection fraction of 75%, moderate mitral valve stenosis, trivial mitral and tricuspid valve insufficiency, RVSP estimated to be 42 mmHg. D-dimer 2.83. D-dimer during admission June 2017 elevated as well with CT negative for PE. CT of chest 06/24/2017 with small right pleural effusion with right basilar atelectasis, bibasilar scarring with areas of bronchiectasis, 2 small noncalcified nodules in the left lower lobe. Repeat CTA of chest. Obtain bilateral duplex ultrasound. Consult pulmonary medicine. Patient's oxygen is stable on room air. Repeat echocardiogram. 2. Chronic kidney disease suspected stage [id number] admission with creatinine 1.1. Creatinine on admission 1.3. Trend BMP. IV fluids given CT with contrast. Hold lisinopril and Lasix regimen. 3. Acute on chronic normocytic anemia-hemoglobin 8.6 on admission. Baseline appears to be 10-11. Patient denies blood in stool. Check stool for occult blood. Repeat CBC in a.m. Check iron studies. 4. Obstructive sleep apnea-polysomnogram December 2015 demonstrated severe obstructive sleep apnea in which BiPAP was recommended 19/13 cm of water. Continue BiPAP nightly. 5. Chronic asthma/suspected COPD-patient is scheduled for outpatient pulmonary function test and walking pulse oximetry with Dr. Erickson. No acute exacerbation. Albuterol and DuoNeb aerosol. 6. Type 2 diabetes mellitus-hemoglobin A1c October 2016 9.4%. Continue long-acting insulin regimen. Patient states she is unable to use Lantus and request to bring in home basaglar. Accu-Cheks before meals at bedtime with sliding scale insulin. 7. History of TIA-continue aspirin, statin. 8. Hypertension-stable, continue metoprolol. Hold lisinopril. 9. Hyperlipidemia-continue statin. 10. Former tobacco [id number]-year smoking history. 11. Mitral valve stenosis 12. CAD/NSTEMI X2-denies chest pain currently. Cardiac catheterization June 2017 demonstrated LVEF 75%, nonobstructive coronary arteries. Follows with Dr. Lynn. Continue aspirin, metoprolol, statin. 13. Morbid obesity-encourage diet lifestyle modifications. Nutrition consult. DVT prophylaxis-SCDs, hold pharmacologic prophylaxis given anemia. This patient was seen by KIAN Baer under the supervision of Dr. Martinez. <Anthony Martinez - Last Filed: 09/16/17 18:11> History of Present Illness Seen and examined in ER. Patient has ongoing dyspnea on exertion for 6 days as mentioned above. Denies chest heaviness/chest pain, fever or chills. Patient also has leg swelling which is chronic but getting worse. She has suspected COPD and last PFT was about 14-[address] Erickson has suggested PFT and she is due for that. She also follows Dr. Lynn for history of coronary artery disease. [] Past Medical History Medical History: Medical History (Last Updated 07/15/17 @ 10:50 by Nathalia Keyes) Non-ST elevation (NSTEMI) myocardial infarction (Chronic) Onset Date: ~06/2017 I21.4 08/2014 and 06/2017 Personal history of transient ischemic attack (TIA), 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) Z86.73 Nonrheumatic mitral (valve) stenosis (Chronic) I34.2 Other secondary pulmonary hypertension (Chronic) I27.29 Atherosclerotic heart disease of [place] coronary artery without angina pectoris (Chronic) I25.10 LADI (obstructive sleep apnea) (Chronic) G47.33 Asthma (Chronic) J45.909 History of tobacco use (Chronic) Z87.891 in remission, 66-pk-yr history Hypertension (Chronic) I10 Hyperlipidemia (Chronic) E78.5 History of TIA (transient ischemic attack) (Chronic) Morbid obesity with BMI of 40.0-44.9, adult (Chronic) E66.01, Z68.41 Type II diabetes mellitus (Chronic) E11.9 Allergies doxycycline Allergy (Severe, Verified 09/16/17 13:01) Rash nitrofurantoin Allergy (Severe, Verified 09/16/17 13:01) asthma attack tiotropium [From Spiriva with HandiHaler] Allergy (Severe, Verified 09/16/17 13:01) difficulty breathing hydrocodone bitartrate [From Vicodin] Allergy (Verified 09/16/17 13:01) Shortness of breath Penicillins Allergy (Verified 09/16/17 13:01) Hives azithromycin Adverse Reaction (Intermediate, Verified 09/16/17 13:01) Diarrhea cephalexin Adverse Reaction (Intermediate, Verified 09/16/17 13:01) Diarrhea indomethacin [From Indocin] Adverse Reaction (Intermediate, Verified 09/16/17 13:01) Diarrhea ketoprofen [From Orudis] Adverse Reaction (Intermediate, Verified 09/16/17 13:01) Diarrhea metformin [From Glucophage] Adverse Reaction (Intermediate, Verified 09/16/17 13:01) Diarrhea sulfamethoxazole [From Septra] Adverse Reaction (Intermediate, Verified 09/16/17 13:01) sore tongue trimethoprim [From Septra] Adverse Reaction (Intermediate, Verified 09/16/17 13:01) sore tongue oxycodone HCl [From Percocet] Adverse Reaction (Verified 09/16/17 13:01) Rash Surgical History: Surgical History (Last Reviewed 09/16/17 @ 17:02 by KIAN Baer) History of left heart catheterization Onset Date: ~06/2017 Z98.890 H/O arthroscopy of shoulder Z98.890 History of carpal tunnel surgery Z92.89 History of cholecystectomy Z90.49 History of tonsillectomy and adenoidectomy Z98.890 - *Family History Maternal Family History: Family History (Last Reviewed 09/16/17 @ 17:04 by KIAN Baer) Father CAD (coronary artery disease) Diabetes Hypertension Paternal Family History: Family History (Last Reviewed 09/16/17 @ 17:04 by KIAN Baer) Father CAD (coronary artery disease) Diabetes Hypertension - Physical Exam Lungs: Diminished, Wheezes Cardiovascular: Regular rate, Regular Rhythm, Normal S2 Abdomen: Non Tender, Non-Distended Extremities: Edema - +2 left lower extremity Bilateral pitting edema, left worse than right Vital Signs Temp Pulse Resp BP Pulse Ox 98.1 F 78 14 130/78 H 95 09/16/17 13:00 09/16/17 17:05 09/16/17 17:05 09/16/17 17:05 09/16/17 17:05 Oxygen Delivery Method Room Air Assessment/Plan This patient was seen in conjunction with Vanessa LOPEZ. I have independently interviewed and examined the patient and reviewed pertinent history, examination findings, laboratory and plan of management. I have reviewed the note and agree with the documented findings with the few additional points. In brief, patient is admitted for dyspnea on exertion with chronic lung and cardiac disease. Chest x-ray done in ER shows a small right pleural effusion and underlying infiltrate on the right side. Left lung base infiltrate/atelectasis. CTPA was ordered and done but official report pending. Shows right-sided pleural effusion with atelectasis and infiltrates. Patient had 2D echo in October 2015 which shows hyperdynamic left ventricle with EF 75%, LA severely enlarged with normal right atrium suggestive of diastolic dysfunction. Patient also had severe mitral annular calcification with moderate MS. Trivial MR. Trivial TR with RVSP 42 mg. Repeat 2D echo ordered in view of right-sided pleural effusion seems to moderate, pulmonary hypertension with history of possible COPD. Continue IV fluid to prevent contrast-induced nephropathy and hold Lasix and nephrotoxic medications. Clinically, she does not seem to have pneumonia as there is no tachypnea, or hypoxia or fever or chills. I have discussed my assessment with HEEL VARNISHERVanessa and orders have been reviewed. Code Visit Inpatient E&M: 45564 Init Hosp L3
--- NOTE | 2017-09-16 16:46 | HP.PCM_ITS ---
<Vanessa Osuna - Last Filed: 09/16/17 17:45> Problem List (1) Dyspnea on exertion Status: Acute (2) Anemia Status: Acute (3) Non-ST elevation (NSTEMI) myocardial infarction Status: Resolved Comment: 08/2014 and 06/2017 (4) Personal history of transient ischemic attack (TIA), and cerebral infarction without residual deficits Status: Chronic (5) Nonrheumatic mitral (valve) stenosis Status: Chronic (6) Other secondary pulmonary hypertension Status: Chronic (7) Atherosclerotic heart disease of false pass coronary artery without angina pectoris Status: Chronic (8) Chronic asthma Status: Chronic Qualifiers: Asthma severity: moderate Asthma persistence: persistent Asthma complication type: uncomplicated Qualified Code(s): J45.40 - Moderate persistent asthma, uncomplicated (9) Pulmonary nodules/lesions, multiple Status: Chronic (10) Pleural effusion Status: Chronic (11) Bronchiectasis Status: Chronic Qualifiers: Bronchiectasis type: uncomplicated Qualified Code(s): J47.9 - Bronchiectasis, uncomplicated (12) LADI (obstructive sleep apnea) Status: Chronic (13) History of tobacco use Status: Chronic Comment: in remission, 66-pk-yr history (14) Hypertension Status: Chronic (15) Hyperlipidemia Status: Chronic (16) History of TIA (transient ischemic attack) Status: Chronic (17) Morbid obesity with BMI of 40.0-44.9, adult Status: Chronic (18) Type II diabetes mellitus Status: Chronic History of Present Illness Date of Admission: 09/16/17 Chief Complaint: Dyspnea on exertion. The patient is a 72 year old F who presents with ongoing dyspnea with exertion which has worsened since Saturday. She denies cough, fever, chills. Denies chest pain. She reports an episode approximately 1 week ago where she had severe left leg pain which lasted approximately 5 minutes and then resolved. She states she frequently has Reji horses in her legs at nighttime. Patient states she is undergoing outpatient evaluation with Dr. Erickson for pulmonary nodules and suspected COPD. She states she was to have an outpatient CTA of chest the of this month and pulmonary function test/6 minute walk in office as well. Patient denies lightheadedness, dizziness. Denies increased shortness of breath with lying flat. Patient states she has significant shortness of breath with minimal exertion/ambulation. She notes left lower extremity swelling which she states is chronic, however worse in the past 2 weeks. She states she follows a low-salt diet. Patient also reports diarrhea in the past day. She states she took Imodium prior to admission. She denies blood in stool. Her past medical history includes type 2 diabetes mellitus, history of TIA, hypertension, hyperlipidemia, 68-ycgy-worr smoking history, obstructive sleep apnea, chronic pleural effusions, bronchiectasis, pulmonary nodules, chronic asthma, pulmonary hypertension, mitral valve stenosis , NSTEMI X2. Past Medical History Past Medical History (Chronic Problems): Chronic Problems (Last Updated 07/15/17 @ 10:50 by Nathalia Keyes) Personal history of transient ischemic attack (TIA), 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) Nonrheumatic mitral (valve) stenosis (Chronic) Other secondary pulmonary hypertension (Chronic) Atherosclerotic heart disease of false pass coronary artery without angina pectoris (Chronic) Chronic asthma (Chronic) Pulmonary nodules/lesions, multiple (Chronic) Pleural effusion (Chronic) Bronchiectasis (Chronic) LADI (obstructive sleep apnea) (Chronic) History of tobacco use (Chronic) in remission, 66-pk-yr history Hypertension (Chronic) Hyperlipidemia (Chronic) History of TIA (transient ischemic attack) (Chronic) Morbid obesity with BMI of 40.0-44.9, adult (Chronic) Type II diabetes mellitus (Chronic) Medical History: Medical History (Last Updated 07/15/17 @ 10:50 by Nathalia Keyes) Non-ST elevation (NSTEMI) myocardial infarction (Chronic) Onset Date: ~2017 I21.4 08/2014 and 06/2017 Personal history of transient ischemic attack (TIA), 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) Z86.73 Nonrheumatic mitral (valve) stenosis (Chronic) I34.2 Other secondary pulmonary hypertension (Chronic) I27.29 Atherosclerotic heart disease of false pass coronary artery without angina pectoris (Chronic) I25.10 LADI (obstructive sleep apnea) (Chronic) G47.33 Asthma (Chronic) J45.909 History of tobacco use (Chronic) Z87.891 in remission, 66-pk-yr history Hypertension (Chronic) I10 Hyperlipidemia (Chronic) E78.5 History of TIA (transient ischemic attack) (Chronic) Morbid obesity with BMI of 40.0-44.9, adult (Chronic) E66.01, Z68.41 Type II diabetes mellitus (Chronic) E11.9 Allergies doxycycline Allergy (Severe, Verified 09/16/17 13:01) Rash nitrofurantoin Allergy (Severe, Verified 09/16/17 13:01) asthma attack tiotropium [From Spiriva with HandiHaler] Allergy (Severe, Verified 09/16/17 13: 01) difficulty breathing hydrocodone bitartrate [From Vicodin] Allergy (Verified 09/16/17 13:01) Shortness of breath Penicillins Allergy (Verified 09/16/17 13:01) Hives azithromycin Adverse Reaction (Intermediate, Verified 09/16/17 13:01) Diarrhea cephalexin Adverse Reaction (Intermediate, Verified 09/16/17 13:01) Diarrhea indomethacin [From Indocin] Adverse Reaction (Intermediate, Verified 09/16/17 13 :01) Diarrhea ketoprofen [From Orudis] Adverse Reaction (Intermediate, Verified 09/16/17 13:01 ) Diarrhea metformin [From Glucophage] Adverse Reaction (Intermediate, Verified 09/16/17 13 :01) Diarrhea sulfamethoxazole [From Septra] Adverse Reaction (Intermediate, Verified 13:01) sore tongue trimethoprim [From Septra] Adverse Reaction (Intermediate, Verified 09/16/17 13: 01) sore tongue oxycodone HCl [From Percocet] Adverse Reaction (Verified 09/16/17 13:01) Rash Home Medications: Ambulatory Orders Medication Instructions Recorded Glipizide [Glucotrol Xl] 10 mg PO BID 09/02/14 Metoprolol Tartrate [Lopressor 25 mg PO DAILY 09/02/14 (beta rory)] Metoprolol Tartrate [Lopressor 50 mg PO QHS 09/02/14 (beta rory)] Aspirin [Aspirin, Baby] 81 mg PO DAILY 09/27/14 Montelukast [Singulair] 10 mg PO DAILY 09/21/15 Furosemide [Lasix] 40 mg PO DAILY 06/24/17 Insulin Glargine,Hum.rec.anlog 80 unit SQ DAILY 06/24/17 [Basaglar Kwikpen U-100] Lisinopril [Zestril] 20 mg PO QHS 06/24/17 Simvastatin [Zocor] 20 mg PO QHS 06/24/17 Symbicort 160-4.5 Mcg Inhaler 2 puff IH BID 06/24/17 traMADol [Ultram] 50 mg PO PRN PRN 06/24/17 albuterol sulfate HFA 90 2 puff INHALATION Q4H PRN g 07/03/17 mcg/actuation aerosol inhaler Lisinopril/Hydrochlorothiazide 1 each PO DAILY 09/16/17 [Zestoretic 20-25 mg Tablet] Surgical History: Surgical History (Last Reviewed 09/16/17 @ 17:02 by KIAN Baer) History of left heart catheterization Onset Date: ~06/2017 Z98.890 H/O arthroscopy of shoulder Z98.890 History of carpal tunnel surgery Z92.89 History of cholecystectomy Z90.49 History of tonsillectomy and adenoidectomy Z98.890 Surgical History: cholecystectomy, tonsillectomy, - Psychiatric History: No pertinent psych hx 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 Paternal Family History: Family History (Last Reviewed 09/16/17 @ 17:04 by KINA Baer) Father CAD (coronary artery disease) Diabetes Hypertension History Items: Diabetes, Heart Disease - Father w/ [place], age 62., Hypertension Review of Systems Constitutional: Denies: Chills, Fever, Weight Change HEENT: Denies: Head Aches, Sinus Congestion, Sinus Drainage Cardiovascular: Reports: Edema - Bilateral lower extremities, left greater than right. Denies: Chest Pain, Light Headedness, Palpitations, Syncope Respiratory: Reports: Shortness of Breath - Worse with exertion. Denies: Cough , Sputum production Gastrointestinal: Reports: Diarrhea. Denies: Abdominal Pain, Nausea, Vomiting Genitourinary: Denies: Dysuria Musculoskeletal: Reports: - - Bilateral leg cramping at night. Denies: Joint Pain, Joint Tenderness Skin: Denies: Rash, Wounds Neurological: Denies: Numbness, Tingling, Focal weakness Psychiatric: Denies: Anxiety, Depression, Homicidal Ideations, Suicidal Ideations Hematologic/ Lymphatic: Denies: Easy Bruising, Easy Bleeding VTE Information - Inpt Only VTE Present on Admission: No VTE Mechan Device Prophylaxis: SCD's VTE Pharm Prophylaxis ordered?: No Reason prophylaxis not ordered:: Medical Contraindication - Acute anemia Patient Problems: Active and Suspected Problems (Last Updated 07/15/17 @ 10:50 by Nathalia Keyes) Dyspnea on exertion (Acute) Anemia (Acute) - Physical Exam General: Alert, Oriented x3, Cooperative, No apparent distress HEENT: Atraumatic, PERRLA, EOMI, Normocephalic Oral: Moist Mucosa Neck: Supple, No JVD, Negative Carotid Bruits Lungs: Diminished, Wheezes - Minimal faint scattered expiratory wheezing. Globally diminished. Cardiovascular: Regular rate, Regular Rhythm, Normal S1, Normal S2, No murmurs Abdomen: Bowel Sounds Present, Soft, Non Tender, Non-Distended, Obese Extremities: No cyanosis, Capillary Refill Less than 3 Seconds, Edema - +2 left lower extremity Skin: No rashes, No breakdown Musculoskeletal: No Tenderness to Palpation of Joints or Extremities Neurological: Cranial nerves II-XII grossly intact, Neuro grossly intact Psych/Mental Status: Normal Affect, Appropriate Vital Signs Temp Pulse Resp BP Pulse Ox 98.1 F 68 14 136/70 H 99 09/16/17 13:00 09/16/17 15:07 09/16/17 15:07 09/16/17 15:07 09/16/17 15:07 Oxygen Delivery Method Room Air Weight: 99.8 kg Body Mass Index (BMI) 41.5 Finger Stick Blood Glucose 241 Laboratory Tests Past 24 Hrs 09/16/17 09/16/17 09/16/17 13:58 13:58 13:58 WBC 6.7 RBC 2.80 L Hgb 8.6 L Hct 27.6 L MCV 98.6 MCH 30.7 MCHC 31.2 L RDW 13.8 RDW Differential 47.5 H Plt Count 200 MPV 9.5 Immature Gran % (Auto) 0.200 Neut % (Auto) 69.2 Lymph % (Auto) 19.1 Hand % (Auto) 9.5 Eos % (Auto) 1.7 Baso % (Auto) 0.3 Absolute Neuts (auto) 4.6 Absolute Lymphs (auto) 1.27 Total Counted Not Reportable D-Dimer Quant (PE/DVT) 2.83 H* Sodium 139 Potassium 4.2 Chloride 103 Carbon Dioxide 27.0 Anion Gap 9 BUN 31 H Creatinine 1.39 H Estim Creat Clear Calc 27.20 Est GFR (MDRD) Af Amer 48 L Est GFR (MDRD) Non-Af 40 L BUN/Creatinine Ratio 22.3 H Glucose 195 H Calcium 8.4 L Total Bilirubin 0.60 AST 21 ALT 20 Alkaline Phosphatase 101 Troponin I < 0.015 B-Natriuretic Peptide Total Protein 7.3 Albumin 2.8 L Globulin 4.5 H Albumin/Globulin Ratio 0.6 L 09/16/17 13:58 WBC RBC Hgb Hct MCV MCH MCHC RDW RDW Differential Plt Count MPV Immature Gran % (Auto) Neut % (Auto) Lymph % (Auto) Hand % (Auto) Eos % (Auto) Baso % (Auto) Absolute Neuts (auto) Absolute Lymphs (auto) Total Counted D-Dimer Quant (PE/DVT) Sodium Potassium Chloride Carbon Dioxide Anion Gap BUN Creatinine Estim Creat Clear Calc Est GFR (MDRD) Af Amer Est GFR (MDRD) Non-Af BUN/Creatinine Ratio Glucose Calcium Total Bilirubin AST ALT Alkaline Phosphatase Troponin I B-Natriuretic Peptide 244.3 H Total Protein Albumin Globulin Albumin/Globulin Ratio Assessment/Plan All Active Problems (Last Updated 07/15/17 @ 10:50 by Nathalia Keyes) Dyspnea on exertion (Acute) Anemia (Acute) Non-ST elevation (NSTEMI) myocardial infarction (Resolved ~06/2017) 1. Dyspnea on exertion in the context of multiple chronic lung concerns including bronchiectasis/chronic pleural effusions/pulmonary nodules/pulmonary hypertension-chest x-ray on admission shows right pleural effusion with underlying infiltration and/or atelectasis. Atelectasis and/or infiltrate of the left lung base. BNP 244. Echocardiogram October 2015 demonstrated an estimated ejection fraction of 75%, moderate mitral valve stenosis, trivial mitral and tricuspid valve insufficiency, RVSP estimated to be 42 mmHg. D- dimer 2.83. D-dimer during admission June 2017 elevated as well with CT negative for PE. CT of chest 06/24/2017 with small right pleural effusion with right basilar atelectasis, bibasilar scarring with areas of bronchiectasis, 2 small noncalcified nodules in the left lower lobe. Repeat CTA of chest. Obtain bilateral duplex ultrasound. Consult pulmonary medicine. Patient's oxygen is stable on room air. Repeat echocardiogram. 2. Chronic kidney disease suspected stage [id number] admission with creatinine 1.1. Creatinine on admission 1.3. Trend BMP. IV fluids given CT with contrast. Hold lisinopril and Lasix regimen. 3. Acute on chronic normocytic anemia-hemoglobin 8.6 on admission. Baseline appears to be 10-11. Patient denies blood in stool. Check stool for occult blood. Repeat CBC in a.m. Check iron studies. 4. Obstructive sleep apnea-polysomnogram December 2015 demonstrated severe obstructive sleep apnea in which BiPAP was recommended 19/13 cm of water. Continue BiPAP nightly. 5. Chronic asthma/suspected COPD-patient is scheduled for outpatient pulmonary function test and walking pulse oximetry with Dr. Erickson. No acute exacerbation. Albuterol and DuoNeb aerosol. 6. Type 2 diabetes mellitus-hemoglobin A1c October 2016 9.4%. Continue long- acting insulin regimen. Patient states she is unable to use Lantus and request to bring in home basaglar. Accu-Cheks before meals at bedtime with sliding scale insulin. 7. History of TIA-continue aspirin, statin. 8. Hypertension-stable, continue metoprolol. Hold lisinopril. 9. Hyperlipidemia-continue statin. 10. Former tobacco [id number]-year smoking history. 11. Mitral valve stenosis 12. CAD/NSTEMI X2-denies chest pain currently. Cardiac catheterization June 2017 demonstrated LVEF 75%, nonobstructive coronary arteries. Follows with Dr. Lynn. Continue aspirin, metoprolol, statin. 13. Morbid obesity-encourage diet lifestyle modifications. Nutrition consult. DVT prophylaxis-SCDs, hold pharmacologic prophylaxis given anemia. This patient was seen by KIAN Baer under the supervision of Dr. Martinez. <Anthony Martinez - Last Filed: 09/16/17 18:11> History of Present Illness Seen and examined in ER. Patient has ongoing dyspnea on exertion for 6 days as mentioned above. Denies chest heaviness/chest pain, fever or chills. Patient also has leg swelling which is chronic but getting worse. She has suspected COPD and last PFT was about 14-[address] Erickson has suggested PFT and she is due for that. She also follows Dr. Lynn for history of coronary artery disease. [] Past Medical History Medical History: Medical History (Last Updated 07/15/17 @ 10:50 by Nathalia Keyes) Non-ST elevation (NSTEMI) myocardial infarction (Chronic) Onset Date: ~2017 I21.4 08/2014 and 06/2017 Personal history of transient ischemic attack (TIA), 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) Z86.73 Nonrheumatic mitral (valve) stenosis (Chronic) I34.2 Other secondary pulmonary hypertension (Chronic) I27.29 Atherosclerotic heart disease of false pass coronary artery without angina pectoris (Chronic) I25.10 LADI (obstructive sleep apnea) (Chronic) G47.33 Asthma (Chronic) J45.909 History of tobacco use (Chronic) Z87.891 in remission, 66-pk-yr history Hypertension (Chronic) I10 Hyperlipidemia (Chronic) E78.5 History of TIA (transient ischemic attack) (Chronic) Morbid obesity with BMI of 40.0-44.9, adult (Chronic) E66.01, Z68.41 Type II diabetes mellitus (Chronic) E11.9 Allergies doxycycline Allergy (Severe, Verified 09/16/17 13:01) Rash nitrofurantoin Allergy (Severe, Verified 09/16/17 13:01) asthma attack tiotropium [From Spiriva with HandiHaler] Allergy (Severe, Verified 09/16/17 13: 01) difficulty breathing hydrocodone bitartrate [From Vicodin] Allergy (Verified 09/16/17 13:01) Shortness of breath Penicillins Allergy (Verified 09/16/17 13:01) Hives azithromycin Adverse Reaction (Intermediate, Verified 09/16/17 13:01) Diarrhea cephalexin Adverse Reaction (Intermediate, Verified 09/16/17 13:01) Diarrhea indomethacin [From Indocin] Adverse Reaction (Intermediate, Verified 09/16/17 13 :01) Diarrhea ketoprofen [From Orudis] Adverse Reaction (Intermediate, Verified 09/16/17 13:01 ) Diarrhea metformin [From Glucophage] Adverse Reaction (Intermediate, Verified 09/16/17 13 :01) Diarrhea sulfamethoxazole [From Septra] Adverse Reaction (Intermediate, Verified 13:01) sore tongue trimethoprim [From Septra] Adverse Reaction (Intermediate, Verified 09/16/17 13: 01) sore tongue oxycodone HCl [From Percocet] Adverse Reaction (Verified 09/16/17 13:01) Rash Surgical History: Surgical History (Last Reviewed 09/16/17 @ 17:02 by KIAN Baer) History of left heart catheterization Onset Date: ~06/2017 Z98.890 H/O arthroscopy of shoulder Z98.890 History of carpal tunnel surgery Z92.89 History of cholecystectomy Z90.49 History of tonsillectomy and adenoidectomy Z98.890 - *Family History Maternal Family History: Family History (Last Reviewed 09/16/17 @ 17:04 by KIAN Baer) Father CAD (coronary artery disease) Diabetes Hypertension Paternal Family History: Family History (Last Reviewed 09/16/17 @ 17:04 by KIAN Baer) Father CAD (coronary artery disease) Diabetes Hypertension - Physical Exam Lungs: Diminished, Wheezes Cardiovascular: Regular rate, Regular Rhythm, Normal S2 Abdomen: Non Tender, Non-Distended Extremities: Edema - +2 left lower extremity Bilateral pitting edema, left worse than right Vital Signs Temp Pulse Resp BP Pulse Ox 98.1 F 78 14 130/78 H 95 09/16/17 13:00 09/16/17 17:05 09/16/17 17:05 09/16/17 17:05 09/16/17 17:05 Oxygen Delivery Method Room Air Assessment/Plan This patient was seen in conjunction with Vanessa LOPEZ. I have independently interviewed and examined the patient and reviewed pertinent history, examination findings, laboratory and plan of management. I have reviewed the note and agree with the documented findings with the few additional points. In brief, patient is admitted for dyspnea on exertion with chronic lung and cardiac disease. Chest x-ray done in ER shows a small right pleural effusion and underlying infiltrate on the right side. Left lung base infiltrate/ atelectasis. CTPA was ordered and done but official report pending. Shows right-sided pleural effusion with atelectasis and infiltrates. Patient had 2D echo in October 2015 which shows hyperdynamic left ventricle with EF 75%, LA severely enlarged with normal right atrium suggestive of diastolic dysfunction. Patient also had severe mitral annular calcification with moderate MS. Trivial MR. Trivial TR with RVSP 42 mg. Repeat 2D echo ordered in view of right-sided pleural effusion seems to moderate, pulmonary hypertension with history of possible COPD. Continue IV fluid to prevent contrast-induced nephropathy and hold Lasix and nephrotoxic medications. Clinically, she does not seem to have pneumonia as there is no tachypnea, or hypoxia or fever or chills. I have discussed my assessment with MEDICAL BILLER/CODERVanessa and orders have been reviewed. Code Visit Inpatient E&M: 75960 Init Hosp L3
--- NOTE | 2017-09-16 17:01 | NURSING ---
MED SURG OBS SOB, DYSPNEA MERA
--- NOTE | 2017-09-16 17:30 | CT_ITS ---
STUDY: CTA CHEST REASON FOR EXAM: Female, 72 years old. Dyspnea, elevated d-dimer RADIATION DOSAGE (If Supplied By Facility): CTDIvol = ( 16.6 ) mGy, DLP = ( 682.38 ) mGycm TECHNIQUE: The examination was performed with the intravenous administration of 100 ml of Isovue 370 contrast material. Post-processing of the angiographic images was performed, with multiplanar reformation and 3D reconstruction. Individualized dose optimization techniques were used for this CT. COMPARISON: None. FINDINGS: Normal enhancement of the main pulmonary artery and right and left pulmonary arteries. Normal enhancement of the bilateral peripheral pulmonary arteries. There is no demonstrated pulmonary embolism. Calcified thoracic aorta and visualized great vessels. There is no demonstrated aortic dissection. Normal heart and pericardium. Subcentimeter nodes in the in the mediastinum. Normal hilar regions. Normal visualized trachea and bronchi. The lungs are well expanded. There is a moderately large right pleural effusion with associated consolidation/atelectasis in the right lung base. Nonspecific peripheral 5 mm right lower lobe nodule is noted, image 114. Normal chest wall structures. Degenerative vertebral changes. Slightly lobulated hepatic condyle may be related to cirrhosis. There are thyroid nodular lesions bilaterally. Partially seen subcutaneous nodule within the right-sided neck, image 234 CT/CTA Chest W/WO Contrast IMPRESSION: No demonstrated pulmonary embolism or arterial dissection. Moderately large right pleural effusion with associated consolidation/atelectasis of the right lung base. Nonspecific peripheral left lower lobe nodule. Subcentimeter mediastinal nodes. Additional abdominal findings as noted. Electronically Signed: Yg Cárdenas DO at 18:16 EDT Tel [phone], Service support ,
--- NOTE | 2017-09-16 17:31 | VDLE_ITS ---
Reason For Study: Elevated D-Dimer RIGHT LEFT GSV is normal. GSV is normal. CFV is compressible, spontaneous, phasic, CFV is compressible, spontaneous, phasic, competent and demonstrates normal competent, and demonstrates normal augmentation. augmentation. FV is compressible, spontaneous, phasic, FV is compressible, spontaneous, phasic, competent and demonstrates normal competent and demonstrates normal augmentation. augmentation. POP V is compressible, spontaneous, phasic, POP V is compressible, spontaneous, phasic, competent and demonstrates normal competent and demonstrates normal augmentation. augmentation. T/P Trunk is compressible. T/P Trunk is compressible. PTV is compressible. PTV is compressible. RT PerV is compressible. LT PerV is compressible. Procedure Exam performed portable in patient room. A preliminary report was called and/or faxed to [facility]. Interpretation Summary No evidence for acute deep venous thrombosis bilateral lower extremities with patent and compressible bilateral great saphenous veins. Ordering Physician: KIAN Baer Referring Physician: Aristides Quispe M.D. Performed By: Sary Cook RVT
--- NOTE | 2017-09-16 17:41 | ECHOD_ITS ---
Reason For Study: SOB Procedure This was a 2D Doppler, Color Flow transthoracic echocardiogram. The exam was of fair technical quality due to body habitus. Exam performed portable in patient room. Left Ventricle Normal LV size. Moderate concentric left ventricular hypertrophy. Left ventricular systolic function is hyperdynamic. The estimated ejection fraction is 75 %. Right Ventricle Normal RV size. Normal systolic function. Atria The left atrium is severely enlarged. The right atrium is mildly enlarged. No doppler evidence for ASD. Mitral Valve There is severe mitral annular calcification. Extension of the mitral annular calcification onto the mitral valve leaflet with partial leaflet restriction. Moderate - Severe mitral valve stenosis. Trivial mitral valve insufficiency. Tricuspid Valve Normal tricuspid valve. Trivial tricuspid valve insufficiency. Right ventricular systolic pressure estimated to be 56 mmHg. Aortic Valve Trisinus/trileaflet aortic valve. Mild focal aortic valve calcification. Pulmonic Valve The pulmonic valve is not well visualized. Great Vessels Normal sized aortic root. Pericardium/Pleural No pericardial effusion. MMode/2D Measurements & Calculations LVIDd: 4.4 cm IVSd: 1.4 cm Ao root diam: 2.9 cm LVIDs: 2.1 cm LVPWd: 1.4 cm LA dimension: 5.0 cm FS: 52.3 % LAV(MOD-bp): 136.9 ml LA A4 area: 35.9 cm2 RA A4 area: 20.8 cm2 LAV(MOD-bp) Indexed: 69.2 ml/m2 LAV(MOD-sp2): 131.9 ml LAV(MOD-sp4): 146.0 ml Doppler Measurements & Calculations MV E max aniket: 311.1 cm/sec Lat Peak E' Aniket: 5.4 cm/sec Med Peak E' Aniket: 5.0 cm/sec MV A max aniket: 191.5 cm/sec E/E' lat: 58.0 E/E' med: 61.7 MV E/A: 1.6 MV V2 max: 266.8 cm/sec MV P1/2t max aniket: 263.5 cm/sec Ao V2 max: 215.5 cm/sec MV max P.5 mmHg MV P1/2t: 121.8 msec Ao max P.6 mmHg MV V2 mean: 172.9 cm/sec MV dec slope: 633.8 cm/sec2 Ao V2 mean: 152.6 cm/sec MV mean P.1 mmHg MVA(P1/2t): 1.8 cm2 Ao mean P.3 mmHg MV V2 VTI: 85.2 cm Ao V2 VTI: 44.3 cm PA V2 max: 142.2 cm/sec TR max aniket: 346.6 cm/sec TR max P.4 mmHg Interpretation Summary Left ventricular systolic function is hyperdynamic. The estimated ejection fraction is 75 %. Moderate concentric left ventricular hypertrophy. The left atrium is severely enlarged. The right atrium is mildly enlarged. There is severe mitral annular calcification. Extension of the mitral annular calcification onto the mitral valve leaflet with partial leaflet restriction. Moderate - Severe mitral valve stenosis. Trivial mitral valve insufficiency. Trivial tricuspid valve insufficiency. Mild focal aortic valve calcification. Right ventricular systolic pressure estimated to be 56 mmHg. Transmitral diastolic flow velocities suggest diastolic dysfunction (pseudonormal pattern). Late peaking spectral doppler pattern in the mid LV cavity to LVOT area approaching 2 m/s (PG of 16 mmHg) c/w a hyperdynamic state. Ordering Physician: KIAN Baer Referring Physician: Aristides Quispe M.D. Performed By: Chrissy Emmanuel RDCS
[2017-09-16 18:54] LABS: Ferritin 15 ng/mL (8-252); Iron 83 ug/dL (50-170); Iron Binding Capacity,Total 437 ug/dL (250-450)
[2017-09-16] MEDS: Ipratropium/Albuterol Sulfate 3 ML AMPUL.NEB INHALATION ×2 (19:02→23:45)
[2017-09-16] MEDS: 0.9% Normal Saline 1,000 ML 100 ML IV (19:03)
[2017-09-16 19:26] LABS: Bedside Glucose 68 mg/dL (70-110)
[2017-09-16] MEDS: 0.9% NaCl Peripheral Flush Adult/Peds IV ×2 (19:37→22:35)
[2017-09-16] MEDS: traZODone 50 MG Tablet PO (22:17)
[2017-09-16] MEDS: Atorvastatin Calcium 10 MG Tablet PO (22:18)
[2017-09-16] MEDS: Metoprolol Tartrate 50 MG Tablet PO (22:19)
[2017-09-16 23:56] LABS: Bedside Glucose 120 mg/dL (70-110)
[2017-09-17] VITALS (17 sets, daily range): BP systolic 130–174; BP diastolic 38–76; PULSE 59–77; RESP 18–20; TEMP 36.7–37.1; O2SAT 92–96
[2017-09-17] MEDS: Loperamide 2 MG Capsule PO ×2 (01:10→13:04)
[2017-09-17] MEDS: Ipratropium/Albuterol Sulfate 3 ML AMPUL.NEB INHALATION ×5 (03:30→23:45)
[2017-09-17 06:15] LABS: Absolute Lymphocyte Count 1.35 X10^3/ul (0.83-4.51); Absolute Neutrophil Count 3.7 X10^3/uL (2.0-7.7); Basophil# 0.01 X10^3/uL; Basophil% 0.2 % (0-1); Eosinophil# 0.08 X10^3/uL; Eosinophils% 1.4 % (0-5); Hematocrit 24.6 % (37-47); Hemoglobin 7.7 g/dl (12.0-15.0); Lymphocyte # 1.35 X10^3/ul (4.0); Lymphocyte % 23.6 % (19-41); Mean Corp Hgb Conc 31.3 g/gl (32-36); Mean Corpuscular Hgb 30.1 pg (27.0-32.0); Mean Corpuscular Volume 96.1 fL (81-99); Mean Platelet Vol. 8.7 fl (6.2-12.0); Monocyte# 0.56 X10^3/uL; Monocyte% 9.8 % (0-10); Neutrophil # 3.72 X10^3/uL (2.7-7.7); Platelet Count 165 K/mm3 (150-450); RBC Distribution Width CV 14.3 % (11.6-14.6); Red Blood Count 2.56 M/mm3 (4.2-5.4); White Blood Count 5.7 K/mm3 (4.4-11.0)
[2017-09-17 06:24] LABS: POSITIVE COUNT NO; POSITIVE DIFFERENTIAL NO; POSITIVE MORPHOLOGY NO
[2017-09-17 06:43] LABS: Anion Gap 9 (5-15); BUN 30 mg/dL (7-18); BUN/Creat Ratio 23.3 RATIO (10-20); Calcium,Total 8.5 mg/dL (8.5-10.1); Chloride 104 mmol/L (98-107); Creatinine, Serum 1.29 mg/dL (0.55-1.02); EST Glomerular Filtration Rate 43 mL/min (>60); Est Glom Filt Rate - Afr Amer 52 mL/min (>60); Estimated Creatinine Clearance 29.31 ml/min; Glucose 157 mg/dL (74-106); Potassium 4.3 mmol/L (3.5-5.1); Sodium Level 140 mmol/L (136-145); Thyroid Stim Hormone (TSH) 1.37 uIU/mL (0.358-3.74)
[2017-09-17 07:10] LABS: International Normalized Ratio 1.2; Partial Thromboplast Time 32.2 Seconds (24.1-36.2); Prothrombin Time (Protime)PT. 15.2 SECONDS (11.7-14.9)
[2017-09-17 07:10] LABS: Bedside Glucose 156 mg/dL (70-110)
[2017-09-17] MEDS: Insulin Lispro 100 UNIT/ML INSULN.PEN SQ ×3 (07:35→15:41)
--- NOTE | 2017-09-17 08:47 | PCM.CONS.GEN ---
Problem List (1) Pleural effusion Status: Acute (2) Dyspnea on exertion Status: Acute (3) Pulmonary nodules/lesions, multiple Status: Chronic (4) Anemia Status: Chronic (5) LADI (obstructive sleep apnea) Status: Chronic (6) Nonrheumatic mitral (valve) stenosis Status: Chronic (7) Other secondary pulmonary hypertension Status: Chronic (8) Atherosclerotic heart disease of [place] coronary artery without angina pectoris Status: Chronic (9) Chronic asthma Status: Chronic Qualifiers: Asthma severity: moderate Asthma persistence: persistent Asthma complication type: uncomplicated Qualified Code(s): J45.40 - Moderate persistent asthma, uncomplicated (10) Bronchiectasis Status: Chronic Qualifiers: Bronchiectasis type: uncomplicated Qualified Code(s): J47.9 - Bronchiectasis, uncomplicated (11) History of tobacco use Status: Chronic Comment: in remission, 66-pk-yr history (12) Hypertension Status: Chronic (13) Hyperlipidemia Status: Chronic (14) History of TIA (transient ischemic attack) Status: Chronic (15) Morbid obesity with BMI of 40.0-44.9, adult Status: Chronic (16) Type II diabetes mellitus Status: Chronic Reason for Consult Date of Consultation: 09/17/17 Reason for Consultation: dyspnea History of Present Illness: The patient is a 72 year old F with past medical history as below, known to Dr. Erickson in the pulmonary clinic, presented to the ED on 09/16/17 with complaints of progressive dyspnea with exertion over the last approximately 1 week. Patient reports she is always short of breath but has been worse lately. She is currently undergoing outpatient workup in the pulmonary clinic and is awaiting her pulmonary function tests and pulmonary stress test later this month. She also had a follow-up CT scheduled for 09/26/17 for her multiple pulmonary nodules discovered during her last admission in June. The patient denies any associated symptoms, no cough, sputum production, dizziness, hemoptysis, fevers or chills, nausea, vomiting, or diarrhea. Denies sore throat or upper respiratory symptoms. She has not required any steroids or antibiotics recently, no hospitalizations since June when she was here with chest pain and had a heart catheterization that did not show any significant stenosis. Patient notes she has eliminated salt from her diet and is compliant with diuretic therapy. Just at her last admission to have a thoracentesis, however she declined at that time. She does have a lot of anxiety associated with the procedure. Initial vitals BP 156/107, pulse 70, RR 20, 98.1?F, 95% on room air. Chest x-ray showed a small right pleural effusion with underlying infiltration and/or atelectasis. Also atelectasis and/or infiltrate at the left lung base. Initial lab work did not show a leukocytosis. Hemoglobin was 8.6 with hematocrit 27.6. Chemistry remarkable for a BUN of 31 and creatinine 1.39. Glucose elevated at 195. BNP 244. Albumin low at 2.8. A d-dimer was elevated at 2.83, so CTA of the chest was obtained and showed no evidence of PE or dissection, a moderately large right pleural effusion with associated consolidation/atelectasis at the right lung base, nonspecific peripheral LLL nodule, subcentimeter mediastinal nodes, possible cirrhosis, thyroid nodular lesions bilaterally, and a partially seen subcutaneous nodule within the right neck. The patient was given IV fluids in the ED and transferred to the medical surgical floor for further evaluation and management. She has not required any oxygen supplementation. She has remained afebrile and hemodynamically stable. Past Medical History Past Medical History (Chronic Problems): Chronic Problems (Last Updated 07/15/17 @ 10:50 by Nathalia Keyes) Anemia (Chronic) Personal history of transient ischemic attack (TIA), 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) Nonrheumatic mitral (valve) stenosis (Chronic) Other secondary pulmonary hypertension (Chronic) Atherosclerotic heart disease of [place] coronary artery without angina pectoris (Chronic) Chronic asthma (Chronic) Pulmonary nodules/lesions, multiple (Chronic) Bronchiectasis (Chronic) LADI (obstructive sleep apnea) (Chronic) History of tobacco use (Chronic) in remission, 66-pk-yr history Hypertension (Chronic) Hyperlipidemia (Chronic) History of TIA (transient ischemic attack) (Chronic) Morbid obesity with BMI of 40.0-44.9, adult (Chronic) Type II diabetes mellitus (Chronic) Medical History: Medical History (Last Updated 07/15/17 @ 10:50 by Nathalia Keyes) Personal history of transient ischemic attack (TIA), 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) Z86.73 Nonrheumatic mitral (valve) stenosis (Chronic) I34.2 Other secondary pulmonary hypertension (Chronic) I27.29 Atherosclerotic heart disease of [place] coronary artery without angina pectoris (Chronic) I25.10 LADI (obstructive sleep apnea) (Chronic) G47.33 History of tobacco use (Chronic) Z87.891 in remission, 66-pk-yr history Hypertension (Chronic) I10 Hyperlipidemia (Chronic) E78.5 History of TIA (transient ischemic attack) (Chronic) Morbid obesity with BMI of 40.0-44.9, adult (Chronic) E66.01, Z68.41 Type II diabetes mellitus (Chronic) E11.9 Non-ST elevation (NSTEMI) myocardial infarction (Resolved) Onset Date: ~06/2017 I21.4 08/2014 and 06/2017 Allergies doxycycline Allergy (Severe, Verified 09/16/17 13:01) Rash nitrofurantoin Allergy (Severe, Verified 09/16/17 13:01) asthma attack tiotropium [From Spiriva with HandiHaler] Allergy (Severe, Verified 09/16/17 13:01) difficulty breathing hydrocodone bitartrate [From Vicodin] Allergy (Verified 09/16/17 13:01) Shortness of breath Penicillins Allergy (Verified 09/16/17 13:01) Hives azithromycin Adverse Reaction (Intermediate, Verified 09/16/17 13:01) Diarrhea cephalexin Adverse Reaction (Intermediate, Verified 09/16/17 13:01) Diarrhea indomethacin [From Indocin] Adverse Reaction (Intermediate, Verified 09/16/17 13:01) Diarrhea ketoprofen [From Orudis] Adverse Reaction (Intermediate, Verified 09/16/17 13:01) Diarrhea metformin [From Glucophage] Adverse Reaction (Intermediate, Verified 09/16/17 13:01) Diarrhea sulfamethoxazole [From Septra] Adverse Reaction (Intermediate, Verified 09/16/17 13:01) sore tongue trimethoprim [From Septra] Adverse Reaction (Intermediate, Verified 09/16/17 13:01) sore tongue oxycodone HCl [From Percocet] Adverse Reaction (Verified 09/16/17 13:01) Rash Home Medications: Ambulatory Orders Medication Instructions Recorded Glipizide [Glucotrol Xl] 10 mg PO BID 09/02/14 Metoprolol Tartrate [Lopressor 25 mg PO DAILY 09/02/14 (beta rory)] Metoprolol Tartrate [Lopressor 50 mg PO QHS 09/02/14 (beta rory)] Aspirin [Aspirin, Baby] 81 mg PO DAILY 09/27/14 Montelukast [Singulair] 10 mg PO DAILY 09/21/15 Furosemide [Lasix] 40 mg PO QHS 06/24/17 Insulin Glargine,Hum.rec.anlog 75 unit SQ QHS 06/24/17 [Basaglar Kwikpen U-100] Lisinopril [Zestril] 20 mg PO QHS 06/24/17 Simvastatin [Zocor] 20 mg PO QHS 06/24/17 Symbicort 160-4.5 Mcg Inhaler 2 puff IH BID 06/24/17 traMADol [Ultram] 50 mg PO TID PRN 06/24/17 albuterol sulfate HFA 90 2 puff INHALATION Q4H PRN g 07/03/17 mcg/actuation aerosol inhaler Docusate Sodium [Colace] 200 mg PO DAILY 09/16/17 Lisinopril/Hydrochlorothiazide 1 each PO DAILY 09/16/17 [Zestoretic 20-25 mg Tablet] traZODone [Desyrel] 50 mg PO QHS PRN 09/16/17 Surgical History: Surgical History (Last Reviewed 09/16/17 @ 17:02 by KIAN Bare) History of left heart catheterization Onset Date: ~06/2017 Z98.890 H/O arthroscopy of shoulder Z98.890 History of carpal tunnel surgery Z92.89 History of cholecystectomy Z90.49 History of tonsillectomy and adenoidectomy Z98.890 Surgical History: cholecystectomy, tonsillectomy, - Psychiatric History: No pertinent psych hx CRIPPLE CHASER History: No pertinent CRIPPLE CHASER history Lives: Spouse/ Significant Other Smoking Status: Former smoker Tobacco Use: Cigarettes Alcohol: None Drugs: None - *Family History Maternal Family History: Family History (Last Reviewed 09/16/17 @ 17:04 by KIAN Baer) Father CAD (coronary artery disease) Diabetes Hypertension History Items: Diabetes, - - age 85 Mother w/ MS. Paternal Family History: Family History (Last Reviewed 09/16/17 @ 17:04 by KIAN Baer) Father CAD (coronary artery disease) Diabetes Hypertension History Items: Diabetes, Heart Disease - Father w/ [place], age 62., Hypertension Review of Systems Constitutional: Reports: Fatigue. Denies: Anorexia, Chills, Fever, Night Sweats, Malaise, Weakness, Weight Change Eyes: Denies: Vision Change HEENT: Denies: Difficulty Swallowing, Nasal bleeding, Nasal Congestion, Post Nasal Drip, Sinus Congestion, Sinus Drainage, Sore Throat Cardiovascular: Reports: Claudication, Edema. Denies: Chest Pain, Chest Tightness, Light Headedness, Orthopnea, Palpitations, Paroxysmal Noc. Dyspnea, Syncope Respiratory: Reports: Shortness of Breath. Denies: Cough, Hemoptysis, Pleuritic Pain, Sputum production, Wheezing Gastrointestinal: Denies: Abdominal Pain, Constipation, Diarrhea, Dyspepsia, Hematemesis, Hematochezia, Nausea, Melena, Vomiting Genitourinary: Reports: Incontinence - stress, Nocturia. Denies: Dysuria, Frequency, Hematuria, Retention, Urgency Musculoskeletal: Reports: Leg Pain - L upper thigh, traveled to L calf. Resolved Skin: Denies: Rash, Wounds Neurological: Denies: Balance problems, Change in Speech, Confusion, Difficulty swallowing, Focal weakness, Numbness, Tingling, Tremor, Seizures Psychiatric: Reports: Anxiety. Denies: Depression Endocrine: Denies: Change in Body Habitus, Polydipsia, Polyuria Hematologic/ Lymphatic: Reports: Anemia. Denies: Adenopathy, Easy Bruising, Easy Bleeding, Hx of blood clot Patient Problems: Active and Suspected Problems (Last Updated 07/15/17 @ 10:50 by Nathalia Keyes) Dyspnea on exertion (Acute) Subjective: Patient was seen and examined. She is lying in bed having her lower extremity Dopplers performed. Denies any current chest pain. States she is always short of breath, however it has been worse over the last week. She is saturating at 93% on room air and it has not required any oxygen supplementation this admission. She denies any cough or sputum production. Objective: Clinical Impression(s) from Imaging Studies Chest X-Ray 09/16/17 14:43 IMPRESSION: Small right pleural effusion with underlying infiltration and/or atelectasis. Atelectasis and/or infiltrate at the left lung base. Radiographic follow-up is recommended. Electronically Signed: Edilson Vaughn MD at 15:11 EDT Tel [phone], Service support , Chest CTA 09/16/17 17:30 IMPRESSION: No demonstrated pulmonary embolism or arterial dissection. Moderately large right pleural effusion with associated consolidation/atelectasis of the right lung base. Nonspecific peripheral left lower lobe nodule. Subcentimeter mediastinal nodes. Additional abdominal findings as noted. Electronically Signed: Yg Cárdenas DO at 18:16 EDT Tel [phone], Service support , - Physical Exam General: Alert, Oriented x3, Cooperative, No apparent distress, Well developed, Well nourished, - - Obese HEENT: Atraumatic, PERRLA, Normocephalic Oral: Moist Mucosa, No Gingival or Mucosal Lesions/ Ulcerations Neck: Supple, No JVD, No Nodes, Trachea Midline Lungs: No wheeze, Diminished, Rales - Bibasilar and right mid posteriorly, - - Symmetric expansion, mild dullness to percussion on the right Cardiovascular: Regular rate, Regular Rhythm, Normal S1, Normal S2, No murmurs, PMI Normal, No rub noted, No Gallop Abdomen: Bowel Sounds Present, Soft, Non Tender, Non-Distended, Obese Extremities: No clubbing, No cyanosis, Capillary Refill Less than 3 Seconds, No Calf Tenderness, Edema - Trace pedal, Peripheral Pulses Normal Skin: No rashes, No breakdown Musculoskeletal: No Tenderness to Palpation of Joints or Extremities, No Muscle Wasting Lymphatic: No Cervical, Supraclavicular, or Inguinal Adenopathy Neurological: Cranial nerves II-XII grossly intact, Neuro grossly intact, Motor Exam 5/5 strength throughout Psych/Mental Status: Alert and oriented to time, place, person, mood and affect Vital Signs Temp Pulse Resp BP Pulse Ox 98.2 F 64 18 130/48 H 93 09/17/17 03:24 09/17/17 06:59 09/17/17 03:30 09/17/17 03:24 09/17/17 03:25 Oxygen Delivery Method Room Air Weight: 223 lb 4.8 oz Body Mass Index (BMI) 42.2 Intake and Output for Last 24 Hours 09/15/17 09/16/17 09/17/17 23:59 23:59 23:59 Intake Total 1446 / 1446 Balance 1446 / 1446 Microbiology Past 72 Hours 09/17/17 03:06 Legionella Antigen - Final Urine, Clean Catch 09/17/17 03:06 Streptococcus pneumoniae Antigen (M - Final Urine, Clean Catch 09/16/17 22:04 Stool Occult Blood (DAMIEN) - Final Stool Occult Blood Positive Laboratory Tests Past 24 Hrs 09/17/17 09/17/17 09/17/17 05:55 05:55 06:44 WBC 5.7 RBC 2.56 L Hgb 7.7 L Hct 24.6 L MCV 96.1 MCH 30.1 MCHC 31.3 L RDW 14.3 RDW Differential 50.0 H Plt Count 165 MPV 8.7 Immature Gran % (Auto) 0.000 Neut % (Auto) 65.0 Lymph % (Auto) 23.6 [place] % (Auto) 9.8 Eos % (Auto) 1.4 Baso % (Auto) 0.2 Absolute Neuts (auto) 3.7 Absolute Lymphs (auto) 1.35 Total Counted Not Reportable PT 15.2 H INR 1.2 APTT 32.2 Sodium 140 Potassium 4.3 Chloride 104 Carbon Dioxide 27.0 Anion Gap 9 BUN 30 H Creatinine 1.29 H Estim Creat Clear Calc 29.31 Est GFR (MDRD) Af Amer 52 L Est GFR (MDRD) Non-Af 43 L BUN/Creatinine Ratio 23.3 H Glucose 157 H Calcium 8.5 Magnesium 2.0 TSH 1.37 POC Glucose 09/17/17 09/16/17 09/16/17 06:55 22:03 19:07 POC Glucose 156 H 120 H 68 L Assessment/Plan All Active Problems (Last Updated 07/15/17 @ 10:50 by Nathalia Keyes) Dyspnea on exertion (Acute) Pleural effusion (Acute) Non-ST elevation (NSTEMI) myocardial infarction (Resolved ~06/2017) RECOMMENDATIONS 1. Wean oxygen supplementation to keep saturations greater than 89% 2. Encourage incentive spirometer 3. Increase activity as tolerated 4. Continue aerosols 5. Plan for diagnostic thoracentesis today 6. N.p.o. in anticipation for thoracentesis 7. Send fluid for cytology 8. Await repeat echocardiogram 9. Cancel CT the chest scheduled for 09/26 10. Ambulatory pulse ox prior to discharge 11. Follow-up as scheduled in the pulmonary clinic IMPRESSIONS 1. Right-sided pleural effusion/shortness of breath Seen on imaging in June 2017, however larger. Patient does have persistent shortness of breath that increases with exertion, she is unable to tolerate any significant activity. However, her oxygen saturations have remained above 90% on room air. She remains afebrile and does not have a leukocytosis. Patient does have a significant smoking history and is being followed for multiple small lung nodules. Patient did have an echo June the showed severe mitral annular calcification, enlarged left atrium, and RVSP of 42. She has been compliant with her BiPAP 19/13 cmH2O with sleep. Pleural effusion is now larger than previous imaging. Would be suspicious for transudate of pleural effusion. She is agreeable to thoracentesis, but would like something to calm her nerves. 2. Anemia Hemoglobin has fallen approximately 2g/dl from her last admission. No signs of active bleeding, denies any hemoptysis, hematochezia, or melena. Management per hospitalist. 3. Suspected COPD/self-reported asthma/known LADI Compliant with her CPAP at home. Does not appear to be in an exacerbation at this time. COPD/asthma may be undertreated at this time, however awaiting upcoming pulmonary function tests. After these are obtained, will develop more concrete plan and hopefully be able to control her shortness of breath more efficiently. 4. Type II DM/morbid obesity/hyperlipidemia/HTN/history of tobacco abuse, in remission/pulmonary hypertension Complicates care, management, recovery, and prognosis. Continue to encourage smoking cessation. Home medications as indicated. Patient does not appear to be hypoxic, however have not obtained a walking oximetry yet. She did not require home oxygen when she was discharged in June. She will require an ambulatory pulse ox prior to discharge hospital. Thank you for the opportunity to participate in this patient's care, please not hesitate contact us with any further questions or concerns. This note was generated with [employer] software. It may contain incorrect words, spelling, and punctuation that were not noted in checking the note before signing.
--- NOTE | 2017-09-17 08:59 | CON.PCM_ITS ---
Problem List (1) Pleural effusion Status: Acute (2) Dyspnea on exertion Status: Acute (3) Pulmonary nodules/lesions, multiple Status: Chronic (4) Anemia Status: Chronic (5) LADI (obstructive sleep apnea) Status: Chronic (6) Nonrheumatic mitral (valve) stenosis Status: Chronic (7) Other secondary pulmonary hypertension Status: Chronic (8) Atherosclerotic heart disease of campo coronary artery without angina pectoris Status: Chronic (9) Chronic asthma Status: Chronic Qualifiers: Asthma severity: moderate Asthma persistence: persistent Asthma complication type: uncomplicated Qualified Code(s): J45.40 - Moderate persistent asthma, uncomplicated (10) Bronchiectasis Status: Chronic Qualifiers: Bronchiectasis type: uncomplicated Qualified Code(s): J47.9 - Bronchiectasis, uncomplicated (11) History of tobacco use Status: Chronic Comment: in remission, 66-pk-yr history (12) Hypertension Status: Chronic (13) Hyperlipidemia Status: Chronic (14) History of TIA (transient ischemic attack) Status: Chronic (15) Morbid obesity with BMI of 40.0-44.9, adult Status: Chronic (16) Type II diabetes mellitus Status: Chronic Reason for Consult Date of Consultation: 09/17/17 Reason for Consultation: dyspnea History of Present Illness: The patient is a 72 year old F with past medical history as below, known to Dr. Erickson in the pulmonary clinic, presented to the ED on 09/16/17 with complaints of progressive dyspnea with exertion over the last approximately 1 week. Patient reports she is always short of breath but has been worse lately. She is currently undergoing outpatient workup in the pulmonary clinic and is awaiting her pulmonary function tests and pulmonary stress test later this month. She also had a follow-up CT scheduled for 09/26/17 for her multiple pulmonary nodules discovered during her last admission in June. The patient denies any associated symptoms, no cough, sputum production, dizziness, hemoptysis, fevers or chills, nausea, vomiting, or diarrhea. Denies sore throat or upper respiratory symptoms. She has not required any steroids or antibiotics recently, no hospitalizations since June when she was here with chest pain and had a heart catheterization that did not show any significant stenosis. Patient notes she has eliminated salt from her diet and is compliant with diuretic therapy. Just at her last admission to have a thoracentesis, however she declined at that time. She does have a lot of anxiety associated with the procedure. Initial vitals BP 156/107, pulse 70, RR 20, 98.1?F, 95% on room air. Chest x- ray showed a small right pleural effusion with underlying infiltration and/or atelectasis. Also atelectasis and/or infiltrate at the left lung base. Initial lab work did not show a leukocytosis. Hemoglobin was 8.6 with hematocrit 27.6. Chemistry remarkable for a BUN of 31 and creatinine 1.39. Glucose elevated at 195. BNP 244. Albumin low at 2.8. A d-dimer was elevated at 2.83, so CTA of the chest was obtained and showed no evidence of PE or dissection, a moderately large right pleural effusion with associated consolidation/atelectasis at the right lung base, nonspecific peripheral LLL nodule, subcentimeter mediastinal nodes, possible cirrhosis, thyroid nodular lesions bilaterally, and a partially seen subcutaneous nodule within the right neck. The patient was given IV fluids in the ED and transferred to the medical surgical floor for further evaluation and management. She has not required any oxygen supplementation. She has remained afebrile and hemodynamically stable. Past Medical History Past Medical History (Chronic Problems): Chronic Problems (Last Updated 07/15/17 @ 10:50 by Nathalia Keyes) Anemia (Chronic) Personal history of transient ischemic attack (TIA), 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) Nonrheumatic mitral (valve) stenosis (Chronic) Other secondary pulmonary hypertension (Chronic) Atherosclerotic heart disease of campo coronary artery without angina pectoris (Chronic) Chronic asthma (Chronic) Pulmonary nodules/lesions, multiple (Chronic) Bronchiectasis (Chronic) LADI (obstructive sleep apnea) (Chronic) History of tobacco use (Chronic) in remission, 66-pk-yr history Hypertension (Chronic) Hyperlipidemia (Chronic) History of TIA (transient ischemic attack) (Chronic) Morbid obesity with BMI of 40.0-44.9, adult (Chronic) Type II diabetes mellitus (Chronic) Medical History: Medical History (Last Updated 07/15/17 @ 10:50 by Nathalia Keyes) Personal history of transient ischemic attack (TIA), 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) Z86.73 Nonrheumatic mitral (valve) stenosis (Chronic) I34.2 Other secondary pulmonary hypertension (Chronic) I27.29 Atherosclerotic heart disease of campo coronary artery without angina pectoris (Chronic) I25.10 LADI (obstructive sleep apnea) (Chronic) G47.33 History of tobacco use (Chronic) Z87.891 in remission, 66-pk-yr history Hypertension (Chronic) I10 Hyperlipidemia (Chronic) E78.5 History of TIA (transient ischemic attack) (Chronic) Morbid obesity with BMI of 40.0-44.9, adult (Chronic) E66.01, Z68.41 Type II diabetes mellitus (Chronic) E11.9 Non-ST elevation (NSTEMI) myocardial infarction (Resolved) Onset Date: ~2017 I21.4 08/2014 and 06/2017 Allergies doxycycline Allergy (Severe, Verified 09/16/17 13:01) Rash nitrofurantoin Allergy (Severe, Verified 09/16/17 13:01) asthma attack tiotropium [From Spiriva with HandiHaler] Allergy (Severe, Verified 09/16/17 13: 01) difficulty breathing hydrocodone bitartrate [From Vicodin] Allergy (Verified 09/16/17 13:01) Shortness of breath Penicillins Allergy (Verified 09/16/17 13:01) Hives azithromycin Adverse Reaction (Intermediate, Verified 09/16/17 13:01) Diarrhea cephalexin Adverse Reaction (Intermediate, Verified 09/16/17 13:01) Diarrhea indomethacin [From Indocin] Adverse Reaction (Intermediate, Verified 09/16/17 13 :01) Diarrhea ketoprofen [From Orudis] Adverse Reaction (Intermediate, Verified 09/16/17 13:01 ) Diarrhea metformin [From Glucophage] Adverse Reaction (Intermediate, Verified 09/16/17 13 :01) Diarrhea sulfamethoxazole [From Septra] Adverse Reaction (Intermediate, Verified 13:01) sore tongue trimethoprim [From Septra] Adverse Reaction (Intermediate, Verified 09/16/17 13: 01) sore tongue oxycodone HCl [From Percocet] Adverse Reaction (Verified 09/16/17 13:01) Rash Home Medications: Ambulatory Orders Medication Instructions Recorded Glipizide [Glucotrol Xl] 10 mg PO BID 09/02/14 Metoprolol Tartrate [Lopressor 25 mg PO DAILY 09/02/14 (beta rory)] Metoprolol Tartrate [Lopressor 50 mg PO QHS 09/02/14 (beta rory)] Aspirin [Aspirin, Baby] 81 mg PO DAILY 09/27/14 Montelukast [Singulair] 10 mg PO DAILY 09/21/15 Furosemide [Lasix] 40 mg PO QHS 06/24/17 Insulin Glargine,Hum.rec.anlog 75 unit SQ QHS 06/24/17 [Basaglar Kwikpen U-100] Lisinopril [Zestril] 20 mg PO QHS 06/24/17 Simvastatin [Zocor] 20 mg PO QHS 06/24/17 Symbicort 160-4.5 Mcg Inhaler 2 puff IH BID 06/24/17 traMADol [Ultram] 50 mg PO TID PRN 06/24/17 albuterol sulfate HFA 90 2 puff INHALATION Q4H PRN g 07/03/17 mcg/actuation aerosol inhaler Docusate Sodium [Colace] 200 mg PO DAILY 09/16/17 Lisinopril/Hydrochlorothiazide 1 each PO DAILY 09/16/17 [Zestoretic 20-25 mg Tablet] traZODone [Desyrel] 50 mg PO QHS PRN 09/16/17 Surgical History: Surgical History (Last Reviewed 09/16/17 @ 17:02 by KIAN Baer) History of left heart catheterization Onset Date: ~06/2017 Z98.890 H/O arthroscopy of shoulder Z98.890 History of carpal tunnel surgery Z92.89 History of cholecystectomy Z90.49 History of tonsillectomy and adenoidectomy Z98.890 Surgical History: cholecystectomy, tonsillectomy, - Psychiatric History: No pertinent psych hx 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 Paternal Family History: Family History (Last Reviewed 09/16/17 @ 17:04 by KIAN Baer) Father CAD (coronary artery disease) Diabetes Hypertension History Items: Diabetes, Heart Disease - Father w/ [place], age 62., Hypertension Review of Systems Constitutional: Reports: Fatigue. Denies: Anorexia, Chills, Fever, Night Sweats , Malaise, Weakness, Weight Change Eyes: Denies: Vision Change HEENT: Denies: Difficulty Swallowing, Nasal bleeding, Nasal Congestion, Post Nasal Drip, Sinus Congestion, Sinus Drainage, Sore Throat Cardiovascular: Reports: Claudication, Edema. Denies: Chest Pain, Chest Tightness, Light Headedness, Orthopnea, Palpitations, Paroxysmal Noc. Dyspnea, Syncope Respiratory: Reports: Shortness of Breath. Denies: Cough, Hemoptysis, Pleuritic Pain, Sputum production, Wheezing Gastrointestinal: Denies: Abdominal Pain, Constipation, Diarrhea, Dyspepsia, Hematemesis, Hematochezia, Nausea, Melena, Vomiting Genitourinary: Reports: Incontinence - stress, Nocturia. Denies: Dysuria, Frequency, Hematuria, Retention, Urgency Musculoskeletal: Reports: Leg Pain - L upper thigh, traveled to L calf. Resolved Skin: Denies: Rash, Wounds Neurological: Denies: Balance problems, Change in Speech, Confusion, Difficulty swallowing, Focal weakness, Numbness, Tingling, Tremor, Seizures Psychiatric: Reports: Anxiety. Denies: Depression Endocrine: Denies: Change in Body Habitus, Polydipsia, Polyuria Hematologic/ Lymphatic: Reports: Anemia. Denies: Adenopathy, Easy Bruising, Easy Bleeding, Hx of blood clot Patient Problems: Active and Suspected Problems (Last Updated 07/15/17 @ 10:50 by Nathalia Keyes) Dyspnea on exertion (Acute) Subjective: Patient was seen and examined. She is lying in bed having her lower extremity Dopplers performed. Denies any current chest pain. States she is always short of breath, however it has been worse over the last week. She is saturating at 93% on room air and it has not required any oxygen supplementation this admission. She denies any cough or sputum production. Objective: Clinical Impression(s) from Imaging Studies Chest X-Ray 09/16/17 14:43 IMPRESSION: Small right pleural effusion with underlying infiltration and/or atelectasis. Atelectasis and/or infiltrate at the left lung base. Radiographic follow-up is recommended. Electronically Signed: Edilson Vaughn MD at 15:11 EDT Tel [phone], Service support , Chest CTA 09/16/17 17:30 IMPRESSION: No demonstrated pulmonary embolism or arterial dissection. Moderately large right pleural effusion with associated consolidation/atelectasis of the right lung base. Nonspecific peripheral left lower lobe nodule. Subcentimeter mediastinal nodes. Additional abdominal findings as noted. Electronically Signed: gY Cárdenas DO at 18:16 EDT Tel [phone], Service support , - Physical Exam General: Alert, Oriented x3, Cooperative, No apparent distress, Well developed, Well nourished, - - Obese HEENT: Atraumatic, PERRLA, Normocephalic Oral: Moist Mucosa, No Gingival or Mucosal Lesions/ Ulcerations Neck: Supple, No JVD, No Nodes, Trachea Midline Lungs: No wheeze, Diminished, Rales - Bibasilar and right mid posteriorly, - - Symmetric expansion, mild dullness to percussion on the right Cardiovascular: Regular rate, Regular Rhythm, Normal S1, Normal S2, No murmurs, PMI Normal, No rub noted, No Gallop Abdomen: Bowel Sounds Present, Soft, Non Tender, Non-Distended, Obese Extremities: No clubbing, No cyanosis, Capillary Refill Less than 3 Seconds, No Calf Tenderness, Edema - Trace pedal, Peripheral Pulses Normal Skin: No rashes, No breakdown Musculoskeletal: No Tenderness to Palpation of Joints or Extremities, No Muscle Wasting Lymphatic: No Cervical, Supraclavicular, or Inguinal Adenopathy Neurological: Cranial nerves II-XII grossly intact, Neuro grossly intact, Motor Exam 5/5 strength throughout Psych/Mental Status: Alert and oriented to time, place, person, mood and affect Vital Signs Temp Pulse Resp BP Pulse Ox 98.2 F 64 18 130/48 H 93 09/17/17 03:24 09/17/17 06:59 09/17/17 03:30 09/17/17 03:24 09/17/17 03:25 Oxygen Delivery Method Room Air Weight: 223 lb 4.8 oz Body Mass Index (BMI) 42.2 Intake and Output for Last 24 Hours 09/15/17 09/16/17 09/17/17 23:59 23:59 23:59 Intake Total 1446 / 1446 Balance 1446 / 1446 Microbiology Past 72 Hours 09/17/17 03:06 Legionella Antigen - Final Urine, Clean Catch 09/17/17 03:06 Streptococcus pneumoniae Antigen (M - Final Urine, Clean Catch 09/16/17 22:04 Stool Occult Blood (DAMIEN) - Final Stool Occult Blood Positive Laboratory Tests Past 24 Hrs 09/17/17 09/17/17 09/17/17 05:55 05:55 06:44 WBC 5.7 RBC 2.56 L Hgb 7.7 L Hct 24.6 L MCV 96.1 MCH 30.1 MCHC 31.3 L RDW 14.3 RDW Differential 50.0 H Plt Count 165 MPV 8.7 Immature Gran % (Auto) 0.000 Neut % (Auto) 65.0 Lymph % (Auto) 23.6 [place] % (Auto) 9.8 Eos % (Auto) 1.4 Baso % (Auto) 0.2 Absolute Neuts (auto) 3.7 Absolute Lymphs (auto) 1.35 Total Counted Not Reportable PT 15.2 H INR 1.2 APTT 32.2 Sodium 140 Potassium 4.3 Chloride 104 Carbon Dioxide 27.0 Anion Gap 9 BUN 30 H Creatinine 1.29 H Estim Creat Clear Calc 29.31 Est GFR (MDRD) Af Amer 52 L Est GFR (MDRD) Non-Af 43 L BUN/Creatinine Ratio 23.3 H Glucose 157 H Calcium 8.5 Magnesium 2.0 TSH 1.37 POC Glucose 09/17/17 09/16/17 09/16/17 06:55 22:03 19:07 POC Glucose 156 H 120 H 68 L Assessment/Plan All Active Problems (Last Updated 07/15/17 @ 10:50 by Nathalia Keyes) Dyspnea on exertion (Acute) Pleural effusion (Acute) Non-ST elevation (NSTEMI) myocardial infarction (Resolved ~06/2017) RECOMMENDATIONS 1. Wean oxygen supplementation to keep saturations greater than 89% 2. Encourage incentive spirometer 3. Increase activity as tolerated 4. Continue aerosols 5. Plan for diagnostic thoracentesis today 6. N.p.o. in anticipation for thoracentesis 7. Send fluid for cytology 8. Await repeat echocardiogram 9. Cancel CT the chest scheduled for 09/26 10. Ambulatory pulse ox prior to discharge 11. Follow-up as scheduled in the pulmonary clinic IMPRESSIONS 1. Right-sided pleural effusion/shortness of breath Seen on imaging in June 2017, however larger. Patient does have persistent shortness of breath that increases with exertion, she is unable to tolerate any significant activity. However, her oxygen saturations have remained above 90% on room air. She remains afebrile and does not have a leukocytosis. Patient does have a significant smoking history and is being followed for multiple small lung nodules. Patient did have an echo June the showed severe mitral annular calcification, enlarged left atrium, and RVSP of 42. She has been compliant with her BiPAP 19/13 cmH2O with sleep. Pleural effusion is now larger than previous imaging. Would be suspicious for transudate of pleural effusion. She is agreeable to thoracentesis, but would like something to calm her nerves. 2. Anemia Hemoglobin has fallen approximately 2g/dl from her last admission. No signs of active bleeding, denies any hemoptysis, hematochezia, or melena. Management per hospitalist. 3. Suspected COPD/self-reported asthma/known LADI Compliant with her CPAP at home. Does not appear to be in an exacerbation at this time. COPD/asthma may be undertreated at this time, however awaiting upcoming pulmonary function tests. After these are obtained, will develop more concrete plan and hopefully be able to control her shortness of breath more efficiently. 4. Type II DM/morbid obesity/hyperlipidemia/HTN/history of tobacco abuse, in remission/pulmonary hypertension Complicates care, management, recovery, and prognosis. Continue to encourage smoking cessation. Home medications as indicated. Patient does not appear to be hypoxic, however have not obtained a walking oximetry yet. She did not require home oxygen when she was discharged in June. She will require an ambulatory pulse ox prior to discharge hospital. Thank you for the opportunity to participate in this patient's care, please not hesitate contact us with any further questions or concerns. This note was generated with [employer] software. It may contain incorrect words, spelling, and punctuation that were not noted in checking the note before signing.
--- NOTE | 2017-09-17 09:02 | PCM.PN.HOSP ---
Patient Problems: Active and Suspected Problems (Last Updated 07/15/17 @ 10:50 by Nathalia Keyes) Dyspnea on exertion (Acute) Subjective: still short of breath, even at rest. concerned about her CKD. Vitals/I&O's: Vital Signs Temp Pulse Resp BP Pulse Ox 36.8 C 64 18 130/48 H 93 09/17/17 03:24 09/17/17 06:59 09/17/17 03:30 09/17/17 03:24 09/17/17 03:25 Oxygen Delivery Method Room Air Weight: 101.287 kg Body Mass Index (BMI) 42.2 Intake and Output for Last 24 Hours 09/15/17 09/16/17 09/17/17 23:59 23:59 23:59 Intake Total 1446 / 1446 Balance 1446 / 1446 General: Alert, No apparent distress HEENT: Atraumatic, Normocephalic Oral: Moist Mucosa, No Gingival or Mucosal Lesions/ Ulcerations Neck: No Nodes, Thyroid Normal Size and Texture Lungs: Clear to auscultation, Diminished - in the bases., - - DTP in right base. Cardiovascular: Regular rate, Regular Rhythm, Normal S1, Normal S2 Abdomen: Bowel Sounds Present, Soft, Non Tender, Non-Distended, No Hepato-splenomegaly, Obese Extremities: - - +1 pitting in LLE. Skin: No rashes, No breakdown Musculoskeletal: No Tenderness to Palpation of Joints or Extremities, No Muscle Wasting Psych/Mental Status: Appropriate, Anxious Microbiology Past 72 Hours 09/17/17 03:06 Urine, Clean Catch Legionella Antigen - Final 09/17/17 03:06 Urine, Clean Catch Streptococcus pneumoniae Antigen (M - Final 09/16/17 22:04 Stool Stool Occult Blood (DAMIEN) - Final Occult Blood Positive Laboratory Results 09/16/17 19:07: POC Glucose 68 L 09/16/17 22:03: POC Glucose 120 H 09/17/17 05:55: WBC 5.7, RBC 2.56 L, Hgb 7.7 L, Hct 24.6 L, MCV 96.1, MCH 30.1, MCHC 31.3 L, RDW 14.3, RDW Differential 50.0 H, Plt Count 165, MPV 8.7, Immature Gran % (Auto) 0.000, Neut % (Auto) 65.0, Lymph % (Auto) 23.6, [place] % (Auto) 9.8, Eos % (Auto) 1.4, Baso % (Auto) 0.2, Absolute Neuts (auto) 3.7, Absolute Lymphs (auto) 1.35, Total Counted Not Reportable 09/17/17 05:55: Sodium 140, Potassium 4.3, Chloride 104, Carbon Dioxide 27.0, Anion Gap 9, BUN 30 H, Creatinine 1.29 H, Estim Creat Clear Calc 29.31, Est GFR (MDRD) Af Amer 52 L, Est GFR (MDRD) Non-Af 43 L, BUN/Creatinine Ratio 23.3 H, Glucose 157 H, Calcium 8.5, Magnesium 2.0, TSH 1.37 09/17/17 05:55: Lactate Dehydrogenase Pending, Total Protein Pending 09/17/17 06:44: PT 15.2 H, INR 1.2, APTT 32.2 09/17/17 06:55: POC Glucose 156 H CTA chest reviewed and shows a R sided pleural effusion. Roughly equivalent to June. Current Medications Acetaminophen (Tylenol) 650 mg PO Q6H PRN PRN PRN Reason: Mild Pain (scale 0-3)/T>100.7 Albuterol Sulfate (Ventolin Aerosols) 2.5 mg INHALATION Q2H PRN PRN PRN Reason: SHORTNESS OF BREATH Albuterol/Ipratropium (Duoneb) 3 ml INHALATION Q4H.RT [facility] Last Admin: 09/17/17 07:30 Dose: 3 ml Aspirin (Aspirin, Baby) 81 mg PO DAILY@0800 [facility] Atorvastatin Calcium (Lipitor) 10 mg PO QHS [facility] Last Admin: 09/16/17 22:18 Dose: 10 mg Docusate Sodium (Colace) 200 mg PO DAILY [facility] Hydralazine HCl (Apresoline Iv) 5 mg IV Q4H PRN PRN PRN Reason: BLOOD PRESSURE Insulin Glargine (Basaglar Kwikpen U-100) 70 unit SQ DAILY [facility] Insulin Human Lispro (Humalog Kwikpen (Bkc)) 0 unit SQ ACHS [facility] PRN Reason: Protocol Last Admin: 09/17/17 07:35 Dose: 1 units Loperamide HCl (Imodium) 2 mg PO Q4H PRN PRN PRN Reason: Diarrhea Last Admin: 09/17/17 01:10 Dose: 2 mg Metoprolol Tartrate (Lopressor (Beta Carlos)) 50 mg PO QHS [facility] Last Admin: 09/16/17 22:19 Dose: 50 mg Metoprolol Tartrate (Lopressor (Beta Carlos)) 25 mg PO DAILY [facility] Montelukast Sodium (Singulair) 10 mg PO DAILY [facility] Nutritional Formula (Lactose Free) (Glucerna Shake) 120 ml PO 4X/DAY [facility] Last Admin: 09/16/17 22:20 Dose: Not Given Ondansetron HCl (Zofran) 4 mg IV Q8H PRN PRN PRN Reason: Nausea Sodium Chloride () 5 - 30 ml IV UD PRN PRN Reason: SALINE FLUSH Last Admin: 09/16/17 22:35 Dose: 10 ml Tramadol HCl (Ultram) 50 mg PO TID PRN PRN Reason: PAIN Trazodone HCl (Desyrel) 50 mg PO QHS PRN PRN Reason: INSOMNIA Last Admin: 09/16/17 22:17 Dose: 50 mg Medical Necessity - Tobacco Use Smoking Status: Former smoker Assessment/Plan All Active Problems (Last Updated 07/15/17 @ 10:50 by Nathalia Keyes) Dyspnea on exertion (Acute) Pleural effusion (Acute) Non-ST elevation (NSTEMI) myocardial infarction (Resolved ~06/2017) 1. Pleural effusion no significant change from June thoracentesis ordered with corresponding labs pulm on consult. 2. CKD 3 appears stable after contrast load w CTA recheck in AM follow up with nephrology as outpt 3. Anemia: baseline from June was 10-11, now 7.7 appears normocytic Iron 83 (normal), but Ferritin was low at 15. will start Ferrous sulfate check hemoccult 4. Dyspnea not hypoxic may be multifactorial (pleural effusion, anemia, LADI, asthma, bronchiectasis) continue with aerosols no indication for steroids at this time. 5. DM2 fair control, though did have a marginal BGT at 1907 on 09/16 continue with levemir and SSI 6. DVT proph: SCDs, chemical prophylaxis contraindicated with the anemia at this time. 7. LLE edema Duplex ordered. Code Visit Inpatient E&M: 54826 Subs Hosp L2
--- NOTE | 2017-09-17 09:15 | PN_ITS ---
Patient Problems: Active and Suspected Problems (Last Updated 07/15/17 @ 10:50 by Nathalia Keyes) Dyspnea on exertion (Acute) Subjective: still short of breath, even at rest. concerned about her CKD. Vitals/I&O's: Vital Signs Temp Pulse Resp BP Pulse Ox 36.8 C 64 18 130/48 H 93 09/17/17 03:24 09/17/17 06:59 09/17/17 03:30 09/17/17 03:24 09/17/17 03:25 Oxygen Delivery Method Room Air Weight: 101.287 kg Body Mass Index (BMI) 42.2 Intake and Output for Last 24 Hours 09/15/17 09/16/17 09/17/17 23:59 23:59 23:59 Intake Total 1446 / 1446 Balance 1446 / 1446 General: Alert, No apparent distress HEENT: Atraumatic, Normocephalic Oral: Moist Mucosa, No Gingival or Mucosal Lesions/ Ulcerations Neck: No Nodes, Thyroid Normal Size and Texture Lungs: Clear to auscultation, Diminished - in the bases., - - DTP in right base. Cardiovascular: Regular rate, Regular Rhythm, Normal S1, Normal S2 Abdomen: Bowel Sounds Present, Soft, Non Tender, Non-Distended, No Hepato- splenomegaly, Obese Extremities: - - +1 pitting in LLE. Skin: No rashes, No breakdown Musculoskeletal: No Tenderness to Palpation of Joints or Extremities, No Muscle Wasting Psych/Mental Status: Appropriate, Anxious Microbiology Past 72 Hours 09/17/17 03:06 Urine, Clean Catch Legionella Antigen - Final 09/17/17 03:06 Urine, Clean Catch Streptococcus pneumoniae Antigen (M - Final 09/16/17 22:04 Stool Stool Occult Blood (DAMIEN) - Final Occult Blood Positive Laboratory Results 09/16/17 19:07: POC Glucose 68 L 09/16/17 22:03: POC Glucose 120 H 09/17/17 05:55: WBC 5.7, RBC 2.56 L, Hgb 7.7 L, Hct 24.6 L, MCV 96.1, MCH 30.1, MCHC 31.3 L, RDW 14.3, RDW Differential 50.0 H, Plt Count 165, MPV 8.7, Immature Gran % (Auto) 0.000, Neut % (Auto) 65.0, Lymph % (Auto) 23.6, [place] % ( Auto) 9.8, Eos % (Auto) 1.4, Baso % (Auto) 0.2, Absolute Neuts (auto) 3.7, Absolute Lymphs (auto) 1.35, Total Counted Not Reportable 09/17/17 05:55: Sodium 140, Potassium 4.3, Chloride 104, Carbon Dioxide 27.0, Anion Gap 9, BUN 30 H, Creatinine 1.29 H, Estim Creat Clear Calc 29.31, Est GFR (MDRD) Af Amer 52 L, Est GFR (MDRD) Non-Af 43 L, BUN/Creatinine Ratio 23.3 H, Glucose 157 H, Calcium 8.5, Magnesium 2.0, TSH 1.37 09/17/17 05:55: Lactate Dehydrogenase Pending, Total Protein Pending 09/17/17 06:44: PT 15.2 H, INR 1.2, APTT 32.2 09/17/17 06:55: POC Glucose 156 H CTA chest reviewed and shows a R sided pleural effusion. Roughly equivalent to June. Current Medications Acetaminophen (Tylenol) 650 mg PO Q6H PRN PRN PRN Reason: Mild Pain (scale 0-3)/T>100.7 Albuterol Sulfate (Ventolin Aerosols) 2.5 mg INHALATION Q2H PRN PRN PRN Reason: SHORTNESS OF BREATH Albuterol/Ipratropium (Duoneb) 3 ml INHALATION Q4H.RT [facility] Last Admin: 09/17/17 07:30 Dose: 3 ml Aspirin (Aspirin, Baby) 81 mg PO DAILY@0800 [facility] Atorvastatin Calcium (Lipitor) 10 mg PO QHS [facility] Last Admin: 09/16/17 22:18 Dose: 10 mg Docusate Sodium (Colace) 200 mg PO DAILY [facility] Hydralazine HCl (Apresoline Iv) 5 mg IV Q4H PRN PRN PRN Reason: BLOOD PRESSURE Insulin Glargine (Basaglar Kwikpen U-100) 70 unit SQ DAILY [facility] Insulin Human Lispro (Humalog Kwikpen (Bkc)) 0 unit SQ ACHS [facility] PRN Reason: Protocol Last Admin: 09/17/17 07:35 Dose: 1 units Loperamide HCl (Imodium) 2 mg PO Q4H PRN PRN PRN Reason: Diarrhea Last Admin: 09/17/17 01:10 Dose: 2 mg Metoprolol Tartrate (Lopressor (Beta Carlos)) 50 mg PO QHS [facility] Last Admin: 09/16/17 22:19 Dose: 50 mg Metoprolol Tartrate (Lopressor (Beta Carlos)) 25 mg PO DAILY [facility] Montelukast Sodium (Singulair) 10 mg PO DAILY [facility] Nutritional Formula (Lactose Free) (Glucerna Shake) 120 ml PO 4X/DAY [facility] Last Admin: 09/16/17 22:20 Dose: Not Given Ondansetron HCl (Zofran) 4 mg IV Q8H PRN PRN PRN Reason: Nausea Sodium Chloride () 5 - 30 ml IV UD PRN PRN Reason: SALINE FLUSH Last Admin: 09/16/17 22:35 Dose: 10 ml Tramadol HCl (Ultram) 50 mg PO TID PRN PRN Reason: PAIN Trazodone HCl (Desyrel) 50 mg PO QHS PRN PRN Reason: INSOMNIA Last Admin: 09/16/17 22:17 Dose: 50 mg Medical Necessity - Tobacco Use Smoking Status: Former smoker Assessment/Plan All Active Problems (Last Updated 07/15/17 @ 10:50 by Nathalia Keyes) Dyspnea on exertion (Acute) Pleural effusion (Acute) Non-ST elevation (NSTEMI) myocardial infarction (Resolved ~06/2017) 1. Pleural effusion * no significant change from June * thoracentesis ordered with corresponding labs * pulm on consult. 2. CKD 3 * appears stable after contrast load w CTA * recheck in AM * follow up with nephrology as outpt 3. Anemia: * baseline from June was 10-11, now 7.7 * appears normocytic * Iron 83 (normal), but Ferritin was low at 15. * will start Ferrous sulfate * check hemoccult 4. Dyspnea * not hypoxic * may be multifactorial (pleural effusion, anemia, LADI, asthma, bronchiectasis) * continue with aerosols * no indication for steroids at this time. 5. DM2 * fair control, though did have a marginal BGT at 1907 on 09/16 * continue with levemir and SSI 6. DVT proph: * SCDs, chemical prophylaxis contraindicated with the anemia at this time. 7. LLE edema * Duplex ordered. Code Visit Inpatient E&M: 75309 Subs Hosp L2
[2017-09-17 09:28] LABS: ALB/GLOB Ratio 0.7 RATIO (0.9-2.4); Globulin 4.1 g/dL (2.2-4.2); LDH 270 U/L (84-246); Protein, Total 6.8 g/dL (6.4-8.2)
[2017-09-17] MEDS: Aspirin 81 MG TAB.CHEW PO (10:41)
[2017-09-17] MEDS: INSULIN GLARGINE,HUM.REC.ANLOG 100 UNIT/ML INSULN.PEN 70 UNIT SQ (10:42)
[2017-09-17] MEDS: Ferrous Sulfate 325 MG Tablet PO ×2 (10:47→15:45)
[2017-09-17] MEDS: Glucerna Shake 120 ML LIQUID PO ×2 (10:47→13:05)
[2017-09-17] MEDS: Montelukast 10 MG Tablet PO (10:47)
[2017-09-17] MEDS: Metoprolol Tartrate 25 MG Tablet PO (10:49)
[2017-09-17 11:20] LABS: Bedside Glucose 170 mg/dL (70-110)
[2017-09-17 15:46] LABS: Bedside Glucose 194 mg/dL (70-110)
--- NOTE | 2017-09-17 22:14 | NURSING ---
[facility] called for breathing tmt.
[2017-09-17] MEDS: Metoprolol Tartrate 50 MG Tablet PO (22:28)
[2017-09-17] MEDS: Atorvastatin Calcium 10 MG Tablet PO (22:28)
[2017-09-17] MEDS: traZODone 50 MG Tablet PO (22:28)
[2017-09-17 23:46] LABS: Bedside Glucose 166 mg/dL (70-110)
[2017-09-18] VITALS (21 sets, daily range): BP systolic 101–182; BP diastolic 25–99; PULSE 58–90; RESP 16–22; TEMP 36.7–37.6; O2SAT 93–98
--- NOTE | 2017-09-18 | FLU_PTH ---
PATIENT: CELENA LARA LOC: MS3 U#:[id number] AGE/SX: 72/F ROOM: MS306 RE09/17/[address]: Dr. Corbin Montgomery DO : 1945 BED: 1 DIS: 09/18/2017 SPEC #: [id number] RECD: 09/18/17 13:52 STATUS: SOUVincent REQ #: [id number] DELVIN: 09/18/17 00:[address]: Angus Erickson DEPT: CYTOLOGY RECD BY: Jacky Henley ENTERED: 09/18/17 13:53 SP TYPE: Fluid OTHR DR: MD Dr. Corbin Greenwood DO Dr. John K Miller, MD Dr. Prakash Chand, MD Tissues: THORACIC FLUID Procedures: Special Stain Group II Surgery Specimen Level IV Cytospin Fluid Comments: @ Ordering doctor for SSII edited from to @ by RGOOD at 09/18/17 1509 @ Ordering doctor for SUIV edited from to @ by RGOOD at 09/18/17 1509 @ Ordering doctor for CYSPIN edited from to @ by RGOOD at 09/18/17 1509 @ Submitting doctor edited from to @ by RGOOD at 09/18/17 1509 HEADER OPERATION: Ultrasound-guided right thoracentesis PRE-OP DIAGNOSIS: Short of breath, dyspnea TISSUE SUBMITTED: Thoracentesis fluid for cytology DIAGNOSIS CYTOLOGY Thoracentesis fluid for cytology (cytospin and cell block): Negative for malignant cells. OCTAVIA:chris 09/19/17 CYTOLOGY STUDY Slides are reviewed. The specimen consists of macrophages, mesothelial cells, inflammatory cells and red blood cells. CYTOLOGY GROSS Received is 70 ml of yellow cloudy fluid labeled with the patient's name and and designated per the requisition as thoracentesis. Submitted for cytology preparation including cell block. / 09/18/17 TC:5 CPT: 61992, 16536
[2017-09-18 06:05] LABS: Bedside Glucose 107 mg/dL (70-110)
[2017-09-18 06:22] LABS: Absolute Lymphocyte Count 1.54 X10^3/ul (0.83-4.51); Absolute Neutrophil Count 2.9 X10^3/uL (2.0-7.7); Basophil# 0.02 X10^3/uL; Basophil% 0.4 % (0-1); Eosinophil# 0.18 X10^3/uL; Eosinophils% 3.4 % (0-5); Hematocrit 24.1 % (37-47); Hemoglobin 7.6 g/dl (12.0-15.0); Lymphocyte # 1.54 X10^3/ul (4.0); Lymphocyte % 28.7 % (19-41); Mean Corp Hgb Conc 31.5 g/gl (32-36); Mean Corpuscular Hgb 30.8 pg (27.0-32.0); Mean Corpuscular Volume 97.6 fL (81-99); Mean Platelet Vol. 9.5 fl (6.2-12.0); Monocyte# 0.69 X10^3/uL; Monocyte% 12.8 % (0-10); Neutrophil # 2.93 X10^3/uL (2.7-7.7); Neutrophil % 54.5 % (47-70); Platelet Count 170 K/mm3 (150-450); RBC Distribution Width CV 13.7 % (11.6-14.6); RBC Distribution Width SD 45.1 fl (35.1-43.9); Red Blood Count 2.47 M/mm3 (4.2-5.4); White Blood Count 5.4 K/mm3 (4.4-11.0)
[2017-09-18 06:26] LABS: POSITIVE COUNT NO; POSITIVE DIFFERENTIAL NO; POSITIVE MORPHOLOGY NO
[2017-09-18 06:29] LABS: Anion Gap 10 (5-15); BUN 32 mg/dL (7-18); BUN/Creat Ratio 25.8 RATIO (10-20); Calcium,Total 8.5 mg/dL (8.5-10.1); Chloride 107 mmol/L (98-107); Creatinine, Serum 1.24 mg/dL (0.55-1.02); EST Glomerular Filtration Rate 45 mL/min (>60); Est Glom Filt Rate - Afr Amer 55 mL/min (>60); Estimated Creatinine Clearance 30.49 ml/min; Glucose 89 mg/dL (74-106); Potassium 4.4 mmol/L (3.5-5.1); Sodium Level 143 mmol/L (136-145)
[2017-09-18] MEDS: Ipratropium/Albuterol Sulfate 3 ML AMPUL.NEB INHALATION ×3 (07:19→15:16)
--- NOTE | 2017-09-18 08:41 | PCM.PN.HOSP ---
Patient Problems: Active and Suspected Problems (Last Updated 07/15/17 @ 10:50 by Nathalia Keyes) Dyspnea on exertion (Acute) Subjective: feels short of breath and can't get any air. Denies depression nor anxiety. Vitals/I&O's: Vital Signs Temp Pulse Resp BP Pulse Ox 37.0 C 64 16 132/59 H 96 09/18/17 04:30 09/18/17 04:30 09/18/17 04:30 09/18/17 04:30 09/18/17 07:36 Oxygen Flow Rate (L/min) 2 Oxygen Delivery Method Nasal Cannula Intake and Output for Last 24 Hours 09/16/17 09/17/17 09/18/17 23:59 23:59 23:59 Intake Total 300 / 300 Balance 300 / 300 General: Alert, No apparent distress HEENT: Atraumatic, Normocephalic Neck: No Nodes, Thyroid Normal Size and Texture Lungs: Clear to auscultation, Normal air movement, No rhonchi, No wheeze Cardiovascular: Regular rate, Regular Rhythm, Normal S1, Normal S2, No murmurs Abdomen: Bowel Sounds Present, Soft, Non Tender, Non-Distended, No Hepato-splenomegaly Extremities: No edema, No Calf Tenderness Laboratory Results 09/17/17 15:32: POC Glucose 194 H 09/17/17 22:26: POC Glucose 166 H 09/18/17 05:20: WBC 5.4, RBC 2.47 L, Hgb 7.6 L, Hct 24.1 L, MCV 97.6, MCH 30.8, MCHC 31.5 L, RDW 13.7, RDW Differential 45.1 H, Plt Count 170, MPV 9.5, Immature Gran % (Auto) 0.200, Neut % (Auto) 54.5, Lymph % (Auto) 28.7, [place] % (Auto) 12.8 H, Eos % (Auto) 3.4, Baso % (Auto) 0.4, Absolute Neuts (auto) 2.9, Absolute Lymphs (auto) 1.54, Total Counted Not Reportable 09/18/17 05:20: Sodium 143, Potassium 4.4, Chloride 107, Carbon Dioxide 26.0, Anion Gap 10, BUN 32 H, Creatinine 1.24 H, Estim Creat Clear Calc 30.49, Est GFR (MDRD) Af Amer 55 L, Est GFR (MDRD) Non-Af 45 L, BUN/Creatinine Ratio 25.8 H, Glucose 89, Calcium 8.5 09/18/17 06:00: POC Glucose 107 Current Medications Acetaminophen (Tylenol) 650 mg PO Q6H PRN PRN PRN Reason: Mild Pain (scale 0-3)/T>100.7 Albuterol Sulfate (Ventolin Aerosols) 2.5 mg INHALATION Q2H PRN PRN PRN Reason: SHORTNESS OF BREATH Albuterol/Ipratropium (Duoneb) 3 ml INHALATION Q4H.RT [facility] Last Admin: 09/18/17 07:19 Dose: 3 ml Aspirin (Aspirin, Baby) 81 mg PO DAILY@0800 [facility] Last Admin: 09/17/17 10:41 Dose: 81 mg Atorvastatin Calcium (Lipitor) 10 mg PO QHS [facility] Last Admin: 09/17/17 22:28 Dose: 10 mg Docusate Sodium (Colace) 200 mg PO DAILY [facility] Last Admin: 09/17/17 10:43 Dose: Not Given Ferrous Sulfate (Ferrous Sulfate) 325 mg PO BIDCM [facility] Last Admin: 09/17/17 15:45 Dose: 325 mg Hydralazine HCl (Apresoline Iv) 5 mg IV Q4H PRN PRN PRN Reason: BLOOD PRESSURE Insulin Glargine (Basaglar Kwikpen U-100) 70 unit SQ DAILY [facility] Last Admin: 09/17/17 10:42 Dose: 70 unit Insulin Human Lispro (Humalog Kwikpen (Bkc)) 0 unit SQ ACHS [facility] PRN Reason: Protocol Last Admin: 09/18/17 06:46 Dose: Not Given Loperamide HCl (Imodium) 2 mg PO Q4H PRN PRN PRN Reason: Diarrhea Last Admin: 09/17/17 13:04 Dose: 2 mg Metoprolol Tartrate (Lopressor (Beta Carlos)) 50 mg PO QHS [facility] Last Admin: 09/17/17 22:28 Dose: 50 mg Metoprolol Tartrate (Lopressor (Beta Carlos)) 25 mg PO DAILY [facility] Last Admin: 09/17/17 10:49 Dose: 25 mg Montelukast Sodium (Singulair) 10 mg PO DAILY [facility] Last Admin: 09/17/17 10:47 Dose: 10 mg Ondansetron HCl (Zofran) 4 mg IV Q8H PRN PRN PRN Reason: Nausea Sodium Chloride () 5 - 30 ml IV UD PRN PRN Reason: SALINE FLUSH Last Admin: 09/16/17 22:35 Dose: 10 ml Tramadol HCl (Ultram) 50 mg PO TID PRN PRN Reason: PAIN Trazodone HCl (Desyrel) 50 mg PO QHS PRN PRN Reason: INSOMNIA Last Admin: 09/17/17 22:28 Dose: 50 mg Medical Necessity - Tobacco Use Smoking Status: Former smoker Tobacco Use: Cigarettes Assessment/Plan All Active Problems (Last Updated 07/15/17 @ 10:50 by Nathalia Keyes) Dyspnea on exertion (Acute) Pleural effusion (Acute) Non-ST elevation (NSTEMI) myocardial infarction (Resolved ~06/2017) 1. Pleural effusion no significant change from June thoracentesis ordered with corresponding labs pulm on consult. 2. CKD 3 appears stable after contrast load w CTA recheck in AM follow up with nephrology as outpt 3. Anemia: baseline from June was 10-11, now 7.7 appears normocytic Iron 83 (normal), but Ferritin was low at 15. will start Ferrous sulfate check hemoccult question how much anemia is contributing to SOB. Will transfuse 1 unit PRBCs. Discussed transfusion with patient (risks and benefits) and she agrees to proceed. 4. Dyspnea not hypoxic may be multifactorial (pleural effusion, anemia, LADI, asthma, bronchiectasis) continue with aerosols no indication for steroids at this time. may be complicated by anxiety, which pt adamantly denies. 5. DM2 fair control, though did have a marginal BGT at 1907 on 09/16 continue with levemir and SSI 6. DVT proph: SCDs, chemical prophylaxis contraindicated with the anemia at this time. 7. LLE edema Duplex ordered. Greater than 35 minutes of which greater than 50% of the time was discussing her shortness of breath, pleural effusion and anemia. Code Visit Inpatient E&M: 56078 Subs Hosp L3
--- NOTE | 2017-09-18 08:42 | CPS ---
pt c/o struggling to breath, tx did not give relief. Placed 2lpm O2 via NC on pt. Checked back with pt and pt was feeling much better with oxygen on.
--- NOTE | 2017-09-18 08:49 | PN_ITS ---
Patient Problems: Active and Suspected Problems (Last Updated 07/15/17 @ 10:50 by Nathalia Keyes) Dyspnea on exertion (Acute) Subjective: feels short of breath and can't get any air. Denies depression nor anxiety. Vitals/I&O's: Vital Signs Temp Pulse Resp BP Pulse Ox 37.0 C 64 16 132/59 H 96 09/18/17 04:30 09/18/17 04:30 09/18/17 04:30 09/18/17 04:30 09/18/17 07:36 Oxygen Flow Rate (L/min) 2 Oxygen Delivery Method Nasal Cannula Intake and Output for Last 24 Hours 09/16/17 09/17/17 09/18/17 23:59 23:59 23:59 Intake Total 300 / 300 Balance 300 / 300 General: Alert, No apparent distress HEENT: Atraumatic, Normocephalic Neck: No Nodes, Thyroid Normal Size and Texture Lungs: Clear to auscultation, Normal air movement, No rhonchi, No wheeze Cardiovascular: Regular rate, Regular Rhythm, Normal S1, Normal S2, No murmurs Abdomen: Bowel Sounds Present, Soft, Non Tender, Non-Distended, No Hepato- splenomegaly Extremities: No edema, No Calf Tenderness Laboratory Results 09/17/17 15:32: POC Glucose 194 H 09/17/17 22:26: POC Glucose 166 H 09/18/17 05:20: WBC 5.4, RBC 2.47 L, Hgb 7.6 L, Hct 24.1 L, MCV 97.6, MCH 30.8, MCHC 31.5 L, RDW 13.7, RDW Differential 45.1 H, Plt Count 170, MPV 9.5, Immature Gran % (Auto) 0.200, Neut % (Auto) 54.5, Lymph % (Auto) 28.7, [place] % ( Auto) 12.8 H, Eos % (Auto) 3.4, Baso % (Auto) 0.4, Absolute Neuts (auto) 2.9, Absolute Lymphs (auto) 1.54, Total Counted Not Reportable 09/18/17 05:20: Sodium 143, Potassium 4.4, Chloride 107, Carbon Dioxide 26.0, Anion Gap 10, BUN 32 H, Creatinine 1.24 H, Estim Creat Clear Calc 30.49, Est GFR (MDRD) Af Amer 55 L, Est GFR (MDRD) Non-Af 45 L, BUN/Creatinine Ratio 25.8 H , Glucose 89, Calcium 8.5 09/18/17 06:00: POC Glucose 107 Current Medications Acetaminophen (Tylenol) 650 mg PO Q6H PRN PRN PRN Reason: Mild Pain (scale 0-3)/T>100.7 Albuterol Sulfate (Ventolin Aerosols) 2.5 mg INHALATION Q2H PRN PRN PRN Reason: SHORTNESS OF BREATH Albuterol/Ipratropium (Duoneb) 3 ml INHALATION Q4H.RT [facility] Last Admin: 09/18/17 07:19 Dose: 3 ml Aspirin (Aspirin, Baby) 81 mg PO DAILY@0800 [facility] Last Admin: 09/17/17 10:41 Dose: 81 mg Atorvastatin Calcium (Lipitor) 10 mg PO QHS [facility] Last Admin: 09/17/17 22:28 Dose: 10 mg Docusate Sodium (Colace) 200 mg PO DAILY [facility] Last Admin: 09/17/17 10:43 Dose: Not Given Ferrous Sulfate (Ferrous Sulfate) 325 mg PO BIDCM [facility] Last Admin: 09/17/17 15:45 Dose: 325 mg Hydralazine HCl (Apresoline Iv) 5 mg IV Q4H PRN PRN PRN Reason: BLOOD PRESSURE Insulin Glargine (Basaglar Kwikpen U-100) 70 unit SQ DAILY [facility] Last Admin: 09/17/17 10:42 Dose: 70 unit Insulin Human Lispro (Humalog Kwikpen (Bkc)) 0 unit SQ ACHS [facility] PRN Reason: Protocol Last Admin: 09/18/17 06:46 Dose: Not Given Loperamide HCl (Imodium) 2 mg PO Q4H PRN PRN PRN Reason: Diarrhea Last Admin: 09/17/17 13:04 Dose: 2 mg Metoprolol Tartrate (Lopressor (Beta Carlos)) 50 mg PO QHS [facility] Last Admin: 09/17/17 22:28 Dose: 50 mg Metoprolol Tartrate (Lopressor (Beta Carlos)) 25 mg PO DAILY [facility] Last Admin: 09/17/17 10:49 Dose: 25 mg Montelukast Sodium (Singulair) 10 mg PO DAILY [facility] Last Admin: 09/17/17 10:47 Dose: 10 mg Ondansetron HCl (Zofran) 4 mg IV Q8H PRN PRN PRN Reason: Nausea Sodium Chloride () 5 - 30 ml IV UD PRN PRN Reason: SALINE FLUSH Last Admin: 09/16/17 22:35 Dose: 10 ml Tramadol HCl (Ultram) 50 mg PO TID PRN PRN Reason: PAIN Trazodone HCl (Desyrel) 50 mg PO QHS PRN PRN Reason: INSOMNIA Last Admin: 09/17/17 22:28 Dose: 50 mg Medical Necessity - Tobacco Use Smoking Status: Former smoker Tobacco Use: Cigarettes Assessment/Plan All Active Problems (Last Updated 07/15/17 @ 10:50 by Nathalia Keyes) Dyspnea on exertion (Acute) Pleural effusion (Acute) Non-ST elevation (NSTEMI) myocardial infarction (Resolved ~06/2017) 1. Pleural effusion * no significant change from June * thoracentesis ordered with corresponding labs * pulm on consult. 2. CKD 3 * appears stable after contrast load w CTA * recheck in AM * follow up with nephrology as outpt 3. Anemia: * baseline from June was 10-11, now 7.7 * appears normocytic * Iron 83 (normal), but Ferritin was low at 15. * will start Ferrous sulfate * check hemoccult * question how much anemia is contributing to SOB. Will transfuse 1 unit PRBCs. * Discussed transfusion with patient (risks and benefits) and she agrees to proceed. 4. Dyspnea * not hypoxic * may be multifactorial (pleural effusion, anemia, LADI, asthma, bronchiectasis) * continue with aerosols * no indication for steroids at this time. * may be complicated by anxiety, which pt adamantly denies. 5. DM2 * fair control, though did have a marginal BGT at 1907 on 09/16 * continue with levemir and SSI 6. DVT proph: * SCDs, chemical prophylaxis contraindicated with the anemia at this time. 7. LLE edema * Duplex ordered. Greater than 35 minutes of which greater than 50% of the time was discussing her shortness of breath, pleural effusion and anemia. Code Visit Inpatient E&M: 10308 [facility] Hosp L3
--- NOTE | 2017-09-18 08:49 | US_ITS ---
PROCEDURE: ULTRASOUND GUIDED THORACENTESIS. DATE: September 18, 2017.. INDICATION: Female, 72 years old. Right pleural effusion. PHYSICIAN: Edilson Vaughn M.D. PROCEDURE: The risks, benefits, and alternatives to the procedure were explained to the patient. The specific risks of bleeding, infection, and pneumothorax requiring chest tube insertion were discussed and accepted. Written informed consent was obtained. Ultrasonographic evaluation of the right lower pleural space was carried out. An adequate pocket was identified. The patient was placed in the sitting, upright position. The overlying skin was prepped and draped in sterile fashion. 1% lidocaine was administered subcutaneously for local anesthesia. Under ultrasound guidance, a 6 [place] thoracentesis needle/catheter system was advanced into the right posterior lower pleural fluid collection. Approximately 1070 mL of shadi-colored fluid was drained. The catheter was removed, and a sterile dressing was applied. A specimen was collected and sent to the laboratory for analysis, as requested by the referring clinician. The patient tolerated the procedure well. A chest x-ray was ordered. US/Thoracentesis W US IMPRESSION: Ultrasound-guided right thoracentesis. Electronically Signed: Edilson Vaughn MD at 13:23 EDT Tel [phone], Service support ,
--- NOTE | 2017-09-18 09:05 | PN_ITS ---
Patient Problems: Active and Suspected Problems (Last Updated 07/15/17 @ 10:50 by Nathalia Keyes) Dyspnea on exertion (Acute) Subjective: Patient was seen and examined. She is sitting up in the chair in no acute distress. Reports she slept well last night on her CPAP, however felt very short of breath this morning upon awakening. She was able to lay flat in the bed. Patient remains afebrile and hemodynamically stable. Maintaining appropriate saturations on room air to 2 L of oxygen supplementation. She really has not been hypoxic, however feels less sob with oxygen in place. Objective: Recent lab and culture data reviewed. Hemoglobin remains low, plans for 1 unit of packed red cells. Hemoccult stool was positive. Urine strep/Legionella antigens were negative. - Physical Exam General: Alert, Oriented x3, Cooperative, No apparent distress, Well developed, Well nourished HEENT: Atraumatic, Normocephalic Oral: Moist Mucosa, No Gingival or Mucosal Lesions/ Ulcerations Neck: Supple, No Nodes, Trachea Midline Lungs: No rhonchi, No wheeze, Diminished, Rales Cardiovascular: Regular rate, Regular Rhythm, Normal S1, Normal S2 Abdomen: Bowel Sounds Present, Soft, Non Tender, Obese Extremities: No clubbing, No cyanosis, No edema Skin: - - No changes from previous Musculoskeletal: No Tenderness to Palpation of Joints or Extremities, No Muscle Wasting Lymphatic: No Cervical, Supraclavicular, or Inguinal Adenopathy Neurological: Neuro grossly intact Psych/Mental Status: Alert and oriented to time, place, person, mood and affect Vital Signs Temp Pulse Resp BP Pulse Ox 98.6 F 88 22 H 132/59 H 96 09/18/17 04:30 09/18/17 07:19 09/18/17 07:19 09/18/17 04:30 09/18/17 07:36 Oxygen Flow Rate (L/min) 2 Oxygen Delivery Method Nasal Cannula Intake and Output for Last 24 Hours 09/16/17 09/17/17 09/18/17 23:59 23:59 23:59 Intake Total 300 / 300 Balance 300 / 300 Laboratory Tests Past 24 Hrs 09/18/17 09/18/17 05:20 05:20 WBC 5.4 RBC 2.47 L Hgb 7.6 L Hct 24.1 L MCV 97.6 MCH 30.8 MCHC 31.5 L RDW 13.7 RDW Differential 45.1 H Plt Count 170 MPV 9.5 Immature Gran % (Auto) 0.200 Neut % (Auto) 54.5 Lymph % (Auto) 28.7 Archuleta % (Auto) 12.8 H Eos % (Auto) 3.4 Baso % (Auto) 0.4 Absolute Neuts (auto) 2.9 Absolute Lymphs (auto) 1.54 Total Counted Not Reportable Sodium 143 Potassium 4.4 Chloride 107 Carbon Dioxide 26.0 Anion Gap 10 BUN 32 H Creatinine 1.24 H Estim Creat Clear Calc 30.49 Est GFR (MDRD) Af Amer 55 L Est GFR (MDRD) Non-Af 45 L BUN/Creatinine Ratio 25.8 H Glucose 89 Calcium 8.5 POC Glucose 09/18/17 09/17/17 09/17/17 06:00 22:26 15:32 POC Glucose 107 166 H 194 H Medical Necessity - Tobacco Use Smoking Status: Former smoker Tobacco Use: Cigarettes Assessment/Plan All Active Problems (Last Updated 07/15/17 @ 10:50 by Nathalia Keyes) Dyspnea on exertion (Acute) Pleural effusion (Acute) Non-ST elevation (NSTEMI) myocardial infarction (Resolved ~06/2017) RECOMMENDATIONS 1. Wean oxygen supplementation to keep saturations greater than 89% 2. Encourage incentive spirometer and increase activity as tolerated 3. Continue CPAP at night and PRN during day 4. Continue aerosols 5. Plan for thoracentesis today 6. N.p.o. in anticipation for thoracentesis 7. Send fluid for cytology 8. Ambulatory pulse ox prior to discharge 9. Follow-up as scheduled in the pulmonary clinic IMPRESSIONS 1. Right-sided pleural effusion/shortness of breath Seen on imaging in June 2017, however larger. Patient does have persistent shortness of breath that increases with exertion, she is unable to tolerate any significant activity. However, her oxygen saturations have remained above 90% on room air. She remains afebrile and does not have a leukocytosis. Patient does have a significant smoking history and is being followed for multiple small lung nodules. Patient did have an echo June the showed severe mitral annular calcification, enlarged left atrium, and RVSP of 42. Repeat echo with worsening pulmonary pressures, severely enlarged L atrium, moderate to severe MV stenosis. She has been compliant with her BiPAP 19/13 cmH2O with sleep. Pleural effusion is now larger than previous imaging. Would be suspicious for transudate of pleural effusion. She is agreeable to thoracentesis, but would like something to calm her nerves. This was ordered but discontinued by hospitalist. Patient was able to lie flat in bed last night while on CPAP. 2. Anemia Hemoglobin has fallen approximately 2g/dl from her last admission. Hemoccult stool was positive. Management per hospitalist. Plans for 1 unit PRBCs. 3. Suspected COPD/self-reported asthma/known LADI Compliant with her CPAP at home. Does not appear to be in an exacerbation at this time. COPD/asthma may be undertreated at this time, however awaiting upcoming pulmonary function tests. After these are obtained, will develop more concrete plan and hopefully be able to control her shortness of breath more efficiently. 4. Type II DM/morbid obesity/hyperlipidemia/HTN/history of tobacco abuse, in remission/pulmonary hypertension Complicates care, management, recovery, and prognosis. Continue to encourage smoking cessation. Home medications as indicated. Patient does not appear to be hypoxic, however have not obtained a walking oximetry yet. She did not require home oxygen when she was discharged in June. She will require an ambulatory pulse ox prior to discharge hospital. Thank you for the opportunity to participate in this patient's care, please not hesitate contact us with any further questions or concerns. This note was generated with [employer] dictation software. It may contain incorrect words, spelling, and punctuation that were not noted in checking the note before signing.
[2017-09-18] MEDS: 0.9% NaCl Peripheral Flush Adult/Peds IV (10:49)
[2017-09-18] MEDS: LORazepam 2 MG/ML Syringe 1 MG IV (10:54)
--- NOTE | 2017-09-18 11:39 | RAD_ITS ---
STUDY: X-RAY CHEST REASON FOR EXAM: Female, 72 years old. Status post right thoracentesis. TECHNIQUE: AP inspiration and expiration views. COMPARISON: Comparison is made with prior study dated September 16, 2017. FINDINGS: The patient is status post right thoracentesis. There is no evidence of pneumothorax. The right pleural effusion has cleared. RAD/Chest Insp/Exp 2 View IMPRESSION: Status post right thoracentesis. There is no evidence of pneumothorax. Electronically Signed: Edilson Vaughn MD at 12:39 EDT Tel [phone], Service support ,
--- NOTE | 2017-09-18 12:06 | CASEMGMT ---
CM INITIAL ASSESSMENT: Home: Patient states she lives with her in a three story home. She states that she has an old home with lots of stairs, but that she doesn't go up to the third floor too often. Her stairs have a railing most of the way. HHS/Aides: Denies. The patient states she does drive. DME: Patient states she does not use or have any DME. Home Oxygen: Patient has a CPAP/Bipap machine through [employer]. If home oxygen is needed, she would prefer to use [employer] for this service. [facility] Advance Directives: Yes, patient states these were on record here. I do not see these documents in her e-chart. Patient states her medical POA is her , Senthil Saunders. PCP: Dr. Aristides Quispe Specialists: Dr. Lynn, Dr. Erickson, Dr. [facility] DC Plan: Home. Patient will be evaluated for home oxygen needs. CM will continue to follow for safe and effective discharge planning.
[2017-09-18 12:22] LABS: Body Fluid Mononuclear WBC # 0.156 10^3/uL; Body Fluid Mononuclear WBC % 91.8 %; Body Fluid Polynuclear WBC # 0.014 10^3/uL; Body Fluid Polynuclear WBC % 8.2 %; Body Fluid Total Cells Counted 0.175 10^3/ul (0.000-0.000)
[2017-09-18] MEDS: Acetaminophen 325 MG Tablet 650 MG PO (12:34)
[2017-09-18 12:36] LABS: Bedside Glucose 107 mg/dL (70-110)
[2017-09-18 12:58] LABS: Glucose, Body Fluid 113 mg/dL (40-70); LDH,Body Fluid 52 Units/l (Not Establ.); Protein, Body Fluid 1.3 g/dL (Not Establ.)
[2017-09-18 13:04] LABS: Appearance/Body Fluid CLEAR; Auto B Fluid Analyzer BKGD Ct COUNTS W/IN LIMITS (W/IN LIMITS); Color/Body Fluid YELLOW; Red Cell Count/Body Fluid 780 /mm3; Source- Body Fluid THORACENTESIS
[2017-09-18] MEDS: Metoprolol Tartrate 25 MG Tablet PO (13:31)
[2017-09-18] MEDS: Montelukast 10 MG Tablet PO (13:32)
[2017-09-18 14:05] LABS: Lymphocytes 73 %; Mesothelial Cells 2 %; Monocytes 18 %; Neutrophil (Segs) 7 %
[2017-09-18 14:07] LABS: Body Fluid QC Type(s) BF1Q,BF2Q
--- NOTE | 2017-09-18 17:06 | PCM.DC ---
- Discharge Diagnoses Current Active Problems: Current Active and Chronic Problems (Last Updated 07/15/17 @ 10:50 by Nathalia Keyes) Dyspnea on exertion (Acute) Anemia (Chronic) You will use the following diet at home:: Calorie/Carbohydrate Controlled (specify 1200, 1400, etc) - 1800, Cardiac, Fluid restricted (specify 2000 mls, 1500 mls) - 2000 ml/day Your food should be the consistency of: Regular Your liquids should be the consistency of: Regular/Thin Discharge Activity: Return to Normal Activity Call your doctor if you observe: Fever of 101 or Higher, Shortness of breath, Chest pain Allergies/Adverse Reactions: Allergies doxycycline Allergy (Severe, Verified 09/16/17 13:01) Rash nitrofurantoin Allergy (Severe, Verified 09/16/17 13:01) asthma attack tiotropium [From Spiriva with HandiHaler] Allergy (Severe, Verified 09/16/17 13:01) difficulty breathing hydrocodone bitartrate [From Vicodin] Allergy (Verified 09/16/17 13:01) Shortness of breath Penicillins Allergy (Verified 09/16/17 13:01) Hives azithromycin Adverse Reaction (Intermediate, Verified 09/16/17 13:01) Diarrhea cephalexin Adverse Reaction (Intermediate, Verified 09/16/17 13:01) Diarrhea indomethacin [From Indocin] Adverse Reaction (Intermediate, Verified 09/16/17 13:01) Diarrhea ketoprofen [From Orudis] Adverse Reaction (Intermediate, Verified 09/16/17 13:01) Diarrhea metformin [From Glucophage] Adverse Reaction (Intermediate, Verified 09/16/17 13:01) Diarrhea sulfamethoxazole [From Septra] Adverse Reaction (Intermediate, Verified 09/16/17 13:01) sore tongue trimethoprim [From Septra] Adverse Reaction (Intermediate, Verified 09/16/17 13:01) sore tongue oxycodone HCl [From Percocet] Adverse Reaction (Verified 09/16/17 13:01) Rash Medications to take at Discharge Glipizide [Glucotrol Xl] 10 mg PO BID 09/02/14 Metoprolol Tartrate [Lopressor (beta rory)] 25 mg PO DAILY 09/02/14 Metoprolol Tartrate [Lopressor (beta rory)] 50 mg PO QHS 09/02/14 Aspirin [Aspirin, Baby] 81 mg PO DAILY 09/27/14 Montelukast [Singulair] 10 mg PO DAILY 09/21/15 Furosemide [Lasix] 40 mg PO QHS 06/24/17 Insulin Glargine,Hum.rec.anlog [Basaglar Kwikpen U-100] 75 unit SQ QHS 06/24/17 Lisinopril [Zestril] 20 mg PO QHS 06/24/17 Simvastatin [Zocor] 20 mg PO QHS 06/24/17 Symbicort 160-4.5 Mcg Inhaler 2 puff IH BID 06/24/17 traMADol [Ultram] 50 mg PO TID PRN 06/24/17 albuterol sulfate HFA 90 mcg/actuation aerosol inhaler 2 puff INHALATION Q4H PRN g 07/03/17 Docusate Sodium [Colace] 200 mg PO DAILY 09/16/17 traZODone [Desyrel] 50 mg PO QHS PRN 09/16/17 Ferrous Sulfate 325 mg PO BIDCM #60 tab 09/18/17 Loperamide [Imodium] 2 mg PO Q4H PRN PRN capsule 09/18/17 Metoprolol Tartrate [Lopressor (beta rory)] 25 mg PO DAILY tablet 09/18/17 The following prescriptions were given: Ferrous Sulfate 325 mg PO BIDCM #60 tab Orders to be completed after discharge: Chest PA and Lateral [RAD] Time Frame: 1 Month, Location: None Selected Primary Care Physician: Aristides Quispe MD [Primary Care Provider] - Within 2 Weeks Test Results: Test results from this visit will be discussed in further detail at your follow-up appointment, if applicable. Please Follow Up With: Angus Erickson MD - pulmonology When: 2-4 weeks Please Follow Up With: Mima Mata DO - nephrology When: 1-2 months Please Follow Up With: Flex Lynn MD - Cardiology When: 4-6 weeks Proposed Discharge Date: 09/18/17
--- NOTE | 2017-09-18 17:09 | PCM.DC.SUM ---
Discharge Date and Diagnosis - Problem List Patient Problems: Active and Suspected Problems (Last Updated 07/15/17 @ 10:50 by Nathalia Keyes) Pleural effusion, transudate (Acute) Dyspnea on exertion (Acute) Date of Admission: 09/16/17 Date of Discharge: 09/18/17 - Primary Discharge Diagnosis Active and Suspected Problems (Last Updated 07/15/17 @ 10:50 by Nathalia Keyes) Pleural effusion, transudate (Acute) Dyspnea on exertion (Acute) - Secondary Discharge Diagnosis Chronic Problems (Last Updated 07/15/17 @ 10:50 by Nathalia Keyes) Anemia (Chronic) Personal history of transient ischemic attack (TIA), 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) Nonrheumatic mitral (valve) stenosis (Chronic) Other secondary pulmonary hypertension (Chronic) Atherosclerotic heart disease of [place] coronary artery without angina pectoris (Chronic) Chronic asthma (Chronic) Pulmonary nodules/lesions, multiple (Chronic) Bronchiectasis (Chronic) LADI (obstructive sleep apnea) (Chronic) History of tobacco use (Chronic) in remission, 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 Atelectasis and/or infiltrate at the left lung base. Radiographic follow-up is recommended. Electronically Signed: Edilson Vaughn MD at 15:11 EDT Tel [phone], Service support , Chest CTA 09/16/17 17:30 IMPRESSION: No demonstrated pulmonary embolism or arterial dissection. Moderately large right pleural effusion with associated consolidation/atelectasis of the right lung base. Nonspecific peripheral left lower lobe nodule. Subcentimeter mediastinal nodes. Additional abdominal findings as noted. Electronically Signed: Yg Cárdenas DO at 18:16 EDT Tel [phone], Service support , Thoracentesis Ultrasound 09/18/17 08:49 IMPRESSION: Ultrasound-guided right thoracentesis. Electronically Signed: Edilson Vaughn MD at 13:23 EDT Tel [phone], Service support , Chest X-Ray 09/18/17 11:39 IMPRESSION: Status post right thoracentesis. There is no evidence of pneumothorax. Electronically Signed: Edilson Vaughn MD at 12:39 EDT Tel [phone], Service support , Angus Erickson MD. Operations: - Procedures: 2-D Echocardiogram, Thoracentesis Summary of Care Provided: The patient is a 72 year old F presents with shortness of breath. Patient was never had toxic but was symptomatic. Patient did have a pleural effusion on her right side which appear to be chronic from previous chest x-rays. Additionally, patient was anemic with a hemoglobin of 7.6. The patient was also noted to have chronic kidney disease as well with initial creatinine of 1.3. So, patient was admitted and monitored. Seen in consultation by pulmonology. Patient did undergo an echocardiogram that showed an ejection fraction of 75%, moderate LVH, severely enlarged left atrium, mildly enlarged right atrium, moderate to severe mitral valve stenosis, right ventricular systolic pressure of 56. Patient did undergo the thoracentesis that appear to be transudate of which is likely cardiac in nature given the patient's mitral stenosis. And patient was transfused 1 unit of packed red blood cells given her shortness of breath and the possibility this being patient noted increased improvement of her breathing after the thoracentesis. It is my feeling the patient's shortness of breath is likely multifactorial, patient has a mitral stenosis plus the anemia plus the pleural effusion which I feel all played into her shortness of breath. It should be noted, however, that the patient was never hypoxic even with activity. Patient will be discharged today she will have an annual to verify that she is not hypoxic with activity. Patient will be instructed to follow-up with pulmonology in regards to further follow-up with her pleural effusion and have a follow-up chest x-ray in about a month's time. Follow-up with cardiology for her mitral stenosis and follow-up with nephrology for her chronic kidney disease. [] Discharge Diet: 1800 Calorie Control Diet, 8 Cup Fluid Restriciton, 2000 mg Sodium Diet Discharge Activity: Return to Normal Activity Call your doctor if you observe: Fever of 101 or Higher, Shortness of breath, Chest pain Home Medications: Medications to take at Discharge Glipizide [Glucotrol Xl] 10 mg PO BID 09/02/14 Metoprolol Tartrate [Lopressor (beta rory)] 25 mg PO DAILY 09/02/14 Metoprolol Tartrate [Lopressor (beta rory)] 50 mg PO QHS 09/02/14 Aspirin [Aspirin, Baby] 81 mg PO DAILY 09/27/14 Montelukast [Singulair] 10 mg PO DAILY 09/21/15 Furosemide [Lasix] 40 mg PO QHS 06/24/17 Insulin Glargine,Hum.rec.anlog [Basaglar Kwikpen U-100] 75 unit SQ QHS 06/24/17 Lisinopril [Zestril] 20 mg PO QHS 06/24/17 Simvastatin [Zocor] 20 mg PO QHS 06/24/17 Symbicort 160-4.5 Mcg Inhaler 2 puff IH BID 06/24/17 traMADol [Ultram] 50 mg PO TID PRN 06/24/17 albuterol sulfate HFA 90 mcg/actuation aerosol inhaler 2 puff INHALATION Q4H PRN g 07/03/17 Docusate Sodium [Colace] 200 mg PO DAILY 09/16/17 traZODone [Desyrel] 50 mg PO QHS PRN 09/16/17 Ferrous Sulfate 325 mg PO BIDCM #60 tab 09/18/17 Loperamide [Imodium] 2 mg PO Q4H PRN PRN capsule 09/18/17 Metoprolol Tartrate [Lopressor (beta rory)] 25 mg PO DAILY tablet 09/18/17 Following Prescrptions Were Given to Patient: Ferrous Sulfate 325 mg PO BIDCM #60 tab Other Amb Orders: Chest PA and Lateral [RAD] Time Frame: 1 Month, Location: None Selected Primary Care Physician: Aristides Quispe MD [Primary Care Provider] - Within 2 Weeks Please Follow Up With: Angus Erickson MD - pulmonology When: 2-4 weeks Please Follow Up With: Mima Mata DO - nephrology When: 1-2 months Please Follow Up With: Flex Lynn MD - Cardiology When: 4-6 weeks Disposition: Home Minutes spent on discharge:: 35 Patient Condition:: Fair Medical Necessity - Tobacco Use Smoking Status: Former smoker Tobacco Use: Cigarettes Meaningful Use Info Meaningful Use Diagnoses (Choose all that apply): None applicable Code Visit Inpatient E&M: 61102 Disch Hosp
--- NOTE | 2017-09-18 17:13 | DS.PCM_ITS ---
Discharge Date and Diagnosis - Problem List Patient Problems: Active and Suspected Problems (Last Updated 07/15/17 @ 10:50 by Nathalia Keyes) Pleural effusion, transudate (Acute) Dyspnea on exertion (Acute) Date of Admission: 09/16/17 Date of Discharge: 09/18/17 - Primary Discharge Diagnosis Active and Suspected Problems (Last Updated 07/15/17 @ 10:50 by Nathalia Keyes) Pleural effusion, transudate (Acute) Dyspnea on exertion (Acute) - Secondary Discharge Diagnosis Chronic Problems (Last Updated 07/15/17 @ 10:50 by Nathalia Keyes) Anemia (Chronic) Personal history of transient ischemic attack (TIA), 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) Nonrheumatic mitral (valve) stenosis (Chronic) Other secondary pulmonary hypertension (Chronic) Atherosclerotic heart disease of [place] coronary artery without angina pectoris (Chronic) Chronic asthma (Chronic) Pulmonary nodules/lesions, multiple (Chronic) Bronchiectasis (Chronic) LADI (obstructive sleep apnea) (Chronic) History of tobacco use (Chronic) in remission, 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 Atelectasis and/or infiltrate at the left lung base. Radiographic follow-up is recommended. Electronically Signed: Edilson Vaughn MD at 15:11 EDT Tel [phone], Service support , Chest CTA 09/16/17 17:30 IMPRESSION: No demonstrated pulmonary embolism or arterial dissection. Moderately large right pleural effusion with associated consolidation/atelectasis of the right lung base. Nonspecific peripheral left lower lobe nodule. Subcentimeter mediastinal nodes. Additional abdominal findings as noted. Electronically Signed: Yg Cárdenas DO at 18:16 EDT Tel [phone], Service support , Thoracentesis Ultrasound 09/18/17 08:49 IMPRESSION: Ultrasound-guided right thoracentesis. Electronically Signed: Edilson Vaughn MD at 13:23 EDT Tel [phone], Service support , Chest X-Ray 09/18/17 11:39 IMPRESSION: Status post right thoracentesis. There is no evidence of pneumothorax. Electronically Signed: Edilson Vaughn MD at 12:39 EDT Tel [phone], Service support , Angus Erickson MD. Operations: - Procedures: 2-D Echocardiogram, Thoracentesis Summary of Care Provided: The patient is a 72 year old F presents with shortness of breath. Patient was never had toxic but was symptomatic. Patient did have a pleural effusion on her right side which appear to be chronic from previous chest x-rays. Additionally, patient was anemic with a hemoglobin of 7.6. The patient was also noted to have chronic kidney disease as well with initial creatinine of 1.3. So, patient was admitted and monitored. Seen in consultation by pulmonology. Patient did undergo an echocardiogram that showed an ejection fraction of 75%, moderate LVH, severely enlarged left atrium, mildly enlarged right atrium, moderate to severe mitral valve stenosis, right ventricular systolic pressure of 56. Patient did undergo the thoracentesis that appear to be transudate of which is likely cardiac in nature given the patient's mitral stenosis. And patient was transfused 1 unit of packed red blood cells given her shortness of breath and the possibility this being patient noted increased improvement of her breathing after the thoracentesis. It is my feeling the patient's shortness of breath is likely multifactorial, patient has a mitral stenosis plus the anemia plus the pleural effusion which I feel all played into her shortness of breath. It should be noted, however, that the patient was never hypoxic even with activity. Patient will be discharged today she will have an annual to verify that she is not hypoxic with activity. Patient will be instructed to follow-up with pulmonology in regards to further follow-up with her pleural effusion and have a follow-up chest x-ray in about a month's time. Follow-up with cardiology for her mitral stenosis and follow-up with nephrology for her chronic kidney disease. [] Discharge Diet: 1800 Calorie Control Diet, 8 Cup Fluid Restriciton, 2000 mg Sodium Diet Discharge Activity: Return to Normal Activity Call your doctor if you observe: Fever of 101 or Higher, Shortness of breath, Chest pain Home Medications: Medications to take at Discharge Glipizide [Glucotrol Xl] 10 mg PO BID 09/02/14 Metoprolol Tartrate [Lopressor (beta rory)] 25 mg PO DAILY 09/02/14 Metoprolol Tartrate [Lopressor (beta rory)] 50 mg PO QHS 09/02/14 Aspirin [Aspirin, Baby] 81 mg PO DAILY 09/27/14 Montelukast [Singulair] 10 mg PO DAILY 09/21/15 Furosemide [Lasix] 40 mg PO QHS 06/24/17 Insulin Glargine,Hum.rec.anlog [Basaglar Kwikpen U-100] 75 unit SQ QHS 06/24/17 Lisinopril [Zestril] 20 mg PO QHS 06/24/17 Simvastatin [Zocor] 20 mg PO QHS 06/24/17 Symbicort 160-4.5 Mcg Inhaler 2 puff IH BID 06/24/17 traMADol [Ultram] 50 mg PO TID PRN 06/24/17 albuterol sulfate HFA 90 mcg/actuation aerosol inhaler 2 puff INHALATION Q4H PRN g 07/03/17 Docusate Sodium [Colace] 200 mg PO DAILY 09/16/17 traZODone [Desyrel] 50 mg PO QHS PRN 09/16/17 Ferrous Sulfate 325 mg PO BIDCM #60 tab 09/18/17 Loperamide [Imodium] 2 mg PO Q4H PRN PRN capsule 09/18/17 Metoprolol Tartrate [Lopressor (beta rory)] 25 mg PO DAILY tablet 09/18/17 Following Prescrptions Were Given to Patient: Ferrous Sulfate 325 mg PO BIDCM #60 tab Other Amb Orders: Chest PA and Lateral [RAD] Time Frame: 1 Month, Location: None Selected Primary Care Physician: Aristides Quispe MD [Primary Care Provider] - Within 2 Weeks Please Follow Up With: Angus Erickson MD - pulmonology When: 2-4 weeks Please Follow Up With: Mima Mata DO - nephrology When: 1-2 months Please Follow Up With: Flex Lynn MD - Cardiology When: 4-6 weeks Disposition: Home Minutes spent on discharge:: 35 Patient Condition:: Fair Medical Necessity - Tobacco Use Smoking Status: Former smoker Tobacco Use: Cigarettes Meaningful Use Info Meaningful Use Diagnoses (Choose all that apply): None applicable Code Visit Inpatient E&M: 94158 Disch Hosp
[2017-09-18] MEDS: Insulin Lispro 100 UNIT/ML INSULN.PEN SQ (17:19)
[2017-09-18] MEDS: Ferrous Sulfate 325 MG Tablet PO (17:20)
[2017-09-18 17:25] LABS: Bedside Glucose 233 mg/dL (70-110)
[2017-09-20 10:36] LABS: Pathologist Comment/Body Fluid Reviewed
--- NOTE | 2017-09-20 16:43 | CASEMGMT ---
LEONIDES GRAY Discharge Follow-up Phone Call: MARKO: 10 Strata: 3 Call Date: 09/20/17 Discharge Date: 09/18/17 Time of Call: 1643 Duration:1 min Admitting Diagnosis: SOB, Dyspnea RN ISAAC attempted to complete follow-up phone call after recent hospitalization. No answer, voice message left with return contact information. No follow-up appts scheduled prior to discharge.
[2017-09-21 10:52] LABS: Cytology, Body Fluid / CSF SEE PATHOLOGY REPORT
== END 2017-09-18 18:32 | disposition home or self-care (01) | DRG 187 ==
LOC: ED 16:21 → MS3 17:12
PROVIDERS: Internal Medicine Critical Care Medicine; Nurse Practitioner Family; Admitting Provider Internal Medicine; Emergency Provider Emergency Medicine; Family Provider Family Medicine; PCP Family Medicine
DX: J90 Pleural effusion, not elsewhere classified (principal); Z68.41 Body mass index [BMI] 40.0-44.9, adult; D64.9 Anemia, unspecified; E66.01 Morbid (severe) obesity due to excess calories; I34.2 Nonrheumatic mitral (valve) stenosis; E11.22 Type 2 diabetes mellitus with diabetic chronic kidney disease; I27.29 Other secondary pulmonary hypertension; N18.3 Chronic kidney disease, stage 3 (moderate); J47.9 Bronchiectasis, uncomplicated; I12.9 Hypertensive chronic kidney disease with stage 1 through stage 4 chronic kidney disease, or unspecified chronic kidney disease; G47.33 Obstructive sleep apnea (adult) (pediatric); E78.5 Hyperlipidemia, unspecified; Z87.891 Personal history of nicotine dependence; Z86.73 Personal history of transient ischemic attack (TIA), and cerebral infarction without residual deficits; J45.909 Unspecified asthma, uncomplicated; I25.10 Atherosclerotic heart disease of native coronary artery without angina pectoris; Z79.4 Long term (current) use of insulin
CPT/HCPCS: 32555; 36415; 71046; 71275; 80048; 80053; 82274; 82728; 82945; 82962; 83540; 83550; 83615; 83735; 83880; 84156; 84157; 84443; 84484; 85025; 85379; 85610; 85730; 86644; 86850; 86900; 86920; 86922; 87070; 87075; 87205; 87449; 88108; 88305; 88313; 89050; 93005; 93306; 93970; 94640; 97116; 97162; 97165; 97530; 97802; 99284; J7030; J7040; P9040; Q9967; A4216

== ENCOUNTER → 2017-09-27 12:47 | Outpatient (CLI) | payer MEDICARE, OTHER, SELFPAY ==
--- NOTE | 2017-09-28 07:39 | PFT ---
INTRODUCTION: The patient is a 72-year-old female that presents for pulmonary function testing secondary to a diagnosis of bronchiectasis. Respiratory therapy reports good patient effort. Bronchodilators were used during testing. INTERPRETATION: Forced expiration spirometry demonstrates no evidence of a large airways obstructive ventilatory defect. There was no significant response to aerosolized bronchodilators. Spirograms are of good quality and plateau gradually. Body plethysmography was performed and reveals lung volumes to be within normal limits. Diffusing capacity by single breath CO is moderately reduced at 45% of predicted. IMPRESSION: These pulmonary function studies demonstrate the presence of an isolated moderate reduction in diffusing capacity, which could be related to an underlying pulmonary vascular disorder such as pulmonary hypertension. Clinical correlation is recommended. There are no previous pulmonary function studies available for comparison.
== END ==
PROVIDERS: Family Provider Family Medicine; PCP Family Medicine; Visit Provider Internal Medicine Critical Care Medicine
DX: J47.9 Bronchiectasis, uncomplicated (principal); J45.40 Moderate persistent asthma, uncomplicated
CPT/HCPCS: 94060; 94726; 94729

== ENCOUNTER → 2017-09-30 12:23 | Outpatient (CLI) | payer MEDICARE, OTHER, SELFPAY ==
[2017-09-30 12:30] VITALS: PULSE 60; PULSE 63; PULSE 64; PULSE 67; PULSE 71; PULSE 72; PULSE 74; PULSE 75; O2SAT 93; O2SAT 94; O2SAT 95; O2SAT 97
--- NOTE | 2017-10-01 08:46 | WT_ITS ---
PSN 6 Minute Walk Test - 6 Minute Walk Test 6 Minute Walk Test: 6 Minute Walk Test PSN:6-Minute Walk Test Start: 10/01/17 06: 22 Freq: Status: Active Protocol: RESP.6MINW Document 09/30/17 12:30 GEORGEANNY (Rec: 10/01/17 07:53 TROYRENÉON [id number]) 6 Minute Walk Test Date Performed 10/01/17 Time Performed 12:35 Height 5 ft 1 in Weight: 101.151 kg Weight in Pounds 223.[address]: Angus Erickson Assistive device used: None Pre-test Oxygen Delivery Method Room Air Pulse Ox (%) 94 Pulse Rate (60-100 beats/min) 60 Dyspnea Michelet Scale (0-10) 0 Exertion Michelet Scale (6-20) 6 1st minute Oxygen Delivery Method Room Air Pulse Ox (%) 94 Pulse Rate (60-100 beats/min) 64 2nd minute Oxygen Delivery Method Room Air Pulse Ox (%) 97 Pulse Rate (60-100 beats/min) 67 Number of Rests Taken 1 Reported Symptoms Increased Work of Breathing 3rd minute Oxygen Delivery Method Room Air Pulse Ox (%) 95 Pulse Rate (60-100 beats/min) 71 Dyspnea Michelet Scale (0-10) 4 Number of Rests Taken 1 Reported Symptoms Increased Work of Breathing 4th minute Oxygen Delivery Method Room Air Pulse Ox (%) 93 Pulse Rate (60-100 beats/min) 74 5th minute Oxygen Delivery Method Room Air Pulse Ox (%) 94 Pulse Rate (60-100 beats/min) 75 Number of Rests Taken 1 Reported Symptoms Increased Work of Breathing 6th minute Oxygen Delivery Method Room Air Pulse Ox (%) 94 Pulse Rate (60-100 beats/min) 72 Dyspnea Michelet Scale (0-10) 5 Number of Rests Taken 1 Reported Symptoms Increased Work of Breathing Post-test Oxygen Delivery Method Room Air Pulse Ox (%) 97 Pulse Rate (60-100 beats/min) 63 Full Laps Walked 7 Partial Lap, Number of Tiles Walked 70 Total Distance Walked (ft) 483 - Interpretation Interpretation: The patient was able to ambulate only 483 feet over the course of 6 minutes on room air with no assistive devices, but did require for breaks secondary to leg weakness and pain. No significant desaturation or tachycardia was noted during testing. These findings are consistent with a musculoskeletal limitation exercise tolerance. - Recommendations Recommendations: No supplemental oxygen is indicated at this time. Patient may benefit from evaluation for peripheral vascular disease.
== END ==
PROVIDERS: Family Provider Family Medicine; PCP Family Medicine; Visit Provider Internal Medicine Critical Care Medicine
DX: J47.9 Bronchiectasis, uncomplicated (principal); J90 Pleural effusion, not elsewhere classified; J45.40 Moderate persistent asthma, uncomplicated
CPT/HCPCS: 94618

== ENCOUNTER → 2017-10-03 09:08 | Outpatient (CLI) | payer MEDICARE, OTHER, SELFPAY ==
--- NOTE | 2017-10-03 09:29 | RAD_ITS ---
STUDY: X-RAY CHEST REASON FOR EXAM: Female, 72 years old. Chest pain and cough, history of effusion TECHNIQUE: PA and lateral views of the chest. COMPARISON: 09/18/2017 FINDINGS: Left lung is expanded and free of superimposed process. Since the previous study, there has been increase in size of a right pleural effusion with associated atelectasis or interstitial edema. Follow-up recommended to assure resolution. Normal size heart. Normal mediastinum and alfredo. Normal visualized pulmonary arteries. There is atherosclerotic calcification of the aortic arch with tortuosity. There are diffuse degenerative changes of the visualized thoracic spine. Normal visualized ribs, clavicles, and shoulders. There is no demonstrated abnormality of the visualized soft tissue structures of the upper abdomen. RAD/Chest PA and Lateral IMPRESSION: Increase in size of the right pleural effusion since the previous study. There is associated atelectasis or interstitial edema. Follow-up recommended to assure resolution Left lung clear and well expanded Degenerative bony changes Electronically Signed: Colt Brown MD at 10:34 EDT , Service support ,
[2017-10-03 10:25] LABS: Absolute Lymphocyte Count 1.81 X10^3/ul (0.83-4.51); Absolute Neutrophil Count 3.3 X10^3/uL (2.0-7.7); Basophil# 0.04 X10^3/uL; Basophil% 0.7 % (0-1); Eosinophil# 0.17 X10^3/uL; Eosinophils% 2.8 % (0-5); Hematocrit 31.1 % (37-47); Hemoglobin 10.1 g/dl (12.0-15.0); Lymphocyte # 1.81 X10^3/ul (4.0); Lymphocyte % 30.1 % (19-41); Mean Corp Hgb Conc 32.5 g/gl (32-36); Mean Corpuscular Hgb 31.6 pg (27.0-32.0); Mean Corpuscular Volume 97.2 fL (81-99); Mean Platelet Vol. 8.9 fl (6.2-12.0); Monocyte# 0.66 X10^3/uL; Neutrophil # 3.33 X10^3/uL (2.7-7.7); Neutrophil % 55.2 % (47-70); Platelet Count 177 K/mm3 (150-450); RBC Distribution Width CV 15.5 % (11.6-14.6); RBC Distribution Width SD 54.7 fl (35.1-43.9)
[2017-10-03 10:26] LABS: POSITIVE COUNT NO; POSITIVE DIFFERENTIAL NO; POSITIVE MORPHOLOGY NO
[2017-10-03 10:54] LABS: Anion Gap 8 (5-15); BUN 26 mg/dL (7-18); BUN/Creat Ratio 21.1 RATIO (10-20); Calcium,Total 9.2 mg/dL (8.5-10.1); Chloride 107 mmol/L (98-107); Creatinine, Serum 1.23 mg/dL (0.55-1.02); EST Glomerular Filtration Rate 45 mL/min (>60); Est Glom Filt Rate - Afr Amer 55 mL/min (>60); Ferritin 43 ng/mL (8-252); Glucose 58 mg/dL (74-106); Sodium Level 144 mmol/L (136-145)
== END ==
PROVIDERS: Family Provider Family Medicine; PCP Family Medicine
DX: J90 Pleural effusion, not elsewhere classified (principal); D50.9 Iron deficiency anemia, unspecified; I10 Essential (primary) hypertension
CPT/HCPCS: 36415; 71046; 80048; 82728; 85025

== ENCOUNTER → 2017-10-15 09:11 | Outpatient (CLI) | payer MEDICARE, OTHER, SELFPAY ==
--- NOTE | 2017-10-15 09:17 | RAD_ITS ---
STUDY: X-RAY CHEST REASON FOR EXAM: Female, 72 years old. Shortness of breath TECHNIQUE: Frontal and lateral views COMPARISON: October 03, 2017 FINDINGS: The lungs are expanded. Right basilar effusion with possible consolidation, similar to previous study. Normal size heart. Normal mediastinum and alfredo. Slightly prominent central pulmonary arteries. Calcified aortic arch and descending thoracic aorta. Degenerative changes of the thoracic spine. Normal visualized ribs, clavicles, and shoulders. There is no demonstrated abnormality of the visualized soft tissue structures of the upper abdomen. RAD/Chest PA and Lateral IMPRESSION: Right basilar effusion with possible consolidation, similar to previous study. Slightly prominent central pulmonary arteries. Electronically Signed: Yg Cárdenas DO at 20:49 EDT Tel [phone], Service support ,
== END ==
PROVIDERS: Family Provider Family Medicine; PCP Family Medicine; Visit Provider Internal Medicine Critical Care Medicine
DX: J94.8 Other specified pleural conditions (principal)
CPT/HCPCS: 71046

== ENCOUNTER → 2017-10-16 11:00 | Outpatient (CLI) | payer MEDICARE, OTHER, SELFPAY ==
[2017-10-16 12:54] LABS: CRP 4.64 mg/L (0.0-3.0); Ferritin 72 ng/mL (8-252); Iron 68 ug/dL (50-170)
[2017-10-17 16:10] LABS: Endomysial Antibody IgA Negative (Negative)
[2017-10-18 11:31] LABS: Immunoglobulin A 344 mg/dL (64-422); t-Transglutaminase IgA <2 U/mL (0-3)
== END ==
PROVIDERS: Family Provider Family Medicine; PCP Family Medicine; Visit Provider Internal Medicine Gastroenterology
DX: D50.9 Iron deficiency anemia, unspecified (principal)
CPT/HCPCS: 36415; 82728; 82784; 83516; 83540; 86140; 86255

== ENCOUNTER → 2017-10-30 08:46 | Outpatient (CLI) | payer MEDICARE, OTHER, SELFPAY ==
[2017-10-30 09:29] LABS: Anion Gap 5 (5-15); BUN 21 mg/dL (7-18); BUN/Creat Ratio 17.5 RATIO (10-20); Calcium,Total 8.9 mg/dL (8.5-10.1); Chloride 106 mmol/L (98-107); EST Glomerular Filtration Rate 47 mL/min (>60); Est Glom Filt Rate - Afr Amer 57 mL/min (>60); Glucose 165 mg/dL (74-106); Potassium 3.6 mmol/L (3.5-5.1); Sodium Level 142 mmol/L (136-145)
== END ==
PROVIDERS: Family Provider Family Medicine; PCP Family Medicine; Visit Provider Internal Medicine Cardiovascular Disease
DX: I27.29 Other secondary pulmonary hypertension (principal); Z86.73 Personal history of transient ischemic attack (TIA), and cerebral infarction without residual deficits
CPT/HCPCS: 36415; 80048; 93880

== ENCOUNTER → 2017-11-05 07:43 | Outpatient (CLI) | payer MEDICARE, OTHER, SELFPAY ==
[2017-11-05 10:45] LABS: Anion Gap 7 (5-15); BUN 19 mg/dL (7-18); BUN/Creat Ratio 17.8 RATIO (10-20); Calcium,Total 8.9 mg/dL (8.5-10.1); Chloride 106 mmol/L (98-107); Cholesterol 142 mg/dL (200); Creatinine, Serum 1.07 mg/dL (0.55-1.02); EST Glomerular Filtration Rate 53 mL/min (>60); Est Glom Filt Rate - Afr Amer 65 mL/min (>60); Glucose 62 mg/dL (74-106); High Density Lipoprotein 55 mg/dL; Potassium 3.6 mmol/L (3.5-5.1); Sodium Level 141 mmol/L (136-145); Triglycerides 112 mg/dL; Very Low Density Lipoprotein 22 mg/dL (5-40)
== END ==
PROVIDERS: Family Provider Family Medicine; PCP Family Medicine; Visit Provider Family Medicine
DX: I10 Essential (primary) hypertension (principal); E11.9 Type 2 diabetes mellitus without complications
CPT/HCPCS: 36415; 80048; 80061; 83036

== ENCOUNTER → 2017-12-30 10:21 | Outpatient (CLI) | payer MEDICARE, OTHER, SELFPAY ==
[2017-12-30 12:23] LABS: Absolute Lymphocyte Count 1.69 X10^3/ul (0.83-4.51); Absolute Neutrophil Count 3.8 X10^3/uL (2.0-7.7); Basophil# 0.03 X10^3/uL; Basophil% 0.5 % (0-1); Eosinophil# 0.15 X10^3/uL; Eosinophils% 2.4 % (0-5); Hematocrit 34.8 % (37-47); Hemoglobin 11.5 g/dl (12.0-15.0); Lymphocyte # 1.69 X10^3/ul (4.0); Lymphocyte % 26.9 % (19-41); Mean Corpuscular Volume 99.7 fL (81-99); Mean Platelet Vol. 9.9 fl (6.2-12.0); Monocyte# 0.59 X10^3/uL; Monocyte% 9.4 % (0-10); Neutrophil # 3.82 X10^3/uL (2.7-7.7); Neutrophil % 60.6 % (47-70); Platelet Count 153 K/mm3 (150-450); RBC Distribution Width SD 45.5 fl (35.1-43.9); Red Blood Count 3.49 M/mm3 (4.2-5.4); White Blood Count 6.3 K/mm3 (4.4-11.0)
[2017-12-30 12:28] LABS: POSITIVE COUNT NO; POSITIVE DIFFERENTIAL NO; POSITIVE MORPHOLOGY NO
[2017-12-30 12:39] LABS: Ferritin 66 ng/mL (8-252); Iron 100 ug/dL (50-170)
== END ==
PROVIDERS: Family Provider Family Medicine; PCP Family Medicine; Referring Provider Internal Medicine Gastroenterology; Visit Provider Internal Medicine Gastroenterology
DX: D50.9 Iron deficiency anemia, unspecified (principal); R53.83 Other fatigue
CPT/HCPCS: 36415; 82728; 83540; 85025

== ENCOUNTER → 2018-02-04 09:06 | Outpatient (CLI) | payer MEDICARE, OTHER, SELFPAY ==
[2018-02-04 11:13] LABS: Albumin, Serum 3.2 g/dL (3.2-5.0); BUN 45 mg/dL (7-18); BUN/Creat Ratio 24.6 RATIO (10-20); Calcium,Total 8.9 mg/dL (8.5-10.1); Chloride 99 mmol/L (98-107); Creatinine, Serum 1.83 mg/dL (0.55-1.02); EST Glomerular Filtration Rate 29 mL/min (>60); Est Glom Filt Rate - Afr Amer 35 mL/min (>60); Glucose 304 mg/dL (74-106); Phosphorus 3.6 mg/dL (2.5-4.9); Potassium 4.5 mmol/L (3.5-5.1); Sodium Level 137 mmol/L (136-145)
[2018-02-04 11:17] LABS: PTHIN 94.3 pg/mL (18.4-80.1)
--- OUTSIDE RECORDS SUMMARY | 2018-03-18 22:23 | XMS RPT_ITS ---
:1945 Author Organization OHIP Support Name Relationship Address Phone DAVID DANIELA Unavailable Unavailable + [place] [address] R Unavailable Unavailable Unavailable MONIQUE LARA Unavailable [address] + [place] [address] GOODLIN, DANIELA Unavailable . + [place] [address] ONEEIGHTY Unavailable [address] + [place] [address] MONIQUE LARA Unavailable [address] + [place] [address] KARSTENLIN, DANIELA Unavailable . + [place] [address] ONEEIGHTY Unavailable [address] + [place] [address] MONIQUE LARA Unavailable [address] + [place] [address] GOODLIN, DANIELA Unavailable Unavailable + [place] [address] ONEEIGHTY Unavailable [address] + [address] [place] [address] MONIQUE LARA Unavailable [address] + [place] [address] GOODLIN, DANIELA Unavailable 1 + [place] [address] ONEEIGHTY Unavailable [address] + [address] [place] [address] MONIQUE LARA Unavailable [address] + [place] [address] KARSTENLIN, DANIELA Unavailable 1 + [place] [address] ONEEIGHTY Unavailable [address] + [address] [place] [address] ULLERY, MONIQUE Unavailable [address] + [place] [address] GOODLIN, DANIELA Unavailable Unavailable + [place] ONEEIGHTY Unavailable [address] + [address] [place] [address] MARCO MONIQUE Unavailable [address] + [place] [address] GOODLIN, DANIELA Unavailable . + [facility], [place] . ONEEIGHTY Unavailable [address] + [address] [place] [address] MARCO, MONIQUE Unavailable [address] + [place] [address] GOODLIN, DANIELA Unavailable . + [facility] . ONEEIGHTY Unavailable [address] + [address] [place] [address] MARCO MONIQUE Unavailable [address] + [place] [address] GOODLIN, DANIELA Unavailable . + [facility] . ONEEIGHTY Unavailable [address] + [address] [place] [address] MARCO, MONIQUE Unavailable [address] + [place] [address] GOODLIN, DANIELA Unavailable . + [facility] . ONEEIGHTY Unavailable [address] + [address] [place] [address] MARCO MONIQUE Unavailable [address] + [place] [address] GOODLIN, DANIELA Unavailable . + [facility] . ONEEIGHTY Unavailable [address] + [address] [place] [address] MARCO, MONIQUE Unavailable [address] + [place] [address] GOODLIN, DANIELA Unavailable . + [place] . ONEEIGHTY Unavailable [address] + [address] [place] [address] MARCO MONIQUE Unavailable [address] + [place] [address] GOODLIN, DANIELA Unavailable . + [place] . ONEEIGHTY Unavailable [address] + [address] [place] [address] MARCO MONIQUE Unavailable [address] + [place] [address] GOODLIN, DANIELA Unavailable Unavailable + [place] ONEEIGHTY Unavailable [address] + [address] [place] [address] MARCO, MONIQUE Unavailable [address] + [place] [address] GOODLIN, DANIELA Unavailable . + [place] . ONEEIGHTY Unavailable [address] + [address] [place] [address] MARCO, MONIQUE Unavailable [address] + [place] [address] GOODLIN, DANIELA Unavailable Unavailable + [place] ONEEIGHTY Unavailable [address] + [address] [place] [address] MARCO MONIQUE Unavailable [address] + [place] [address] GOODLIN, DANIELA Unavailable . + [place] . ONEEIGHTY Unavailable [address] + [address] [place] [address] MARCO MONIQUE Unavailable [address] + [place] [address] Goodlin, Daniela Unavailable Unavailable + [place] [address] ONEEIGHTY Unavailable [address] + [address] [place] [address] MARCO, MONIQUE Unavailable [address] + [place] [address] Goodlin, Daniela Unavailable Unavailable + [place] [address] ONEEIGHTY Unavailable [address] + [address] [place] [address] MARCO MONIQUE Unavailable [address] + [place] [address] Goodlin, Daniela Unavailable Unavailable + [place] [address] ONEEIGHTY Unavailable [address] + [address] [place] [address] MARCO MONIQUE Unavailable [address] + [place] [address] Goodlin, Daniela Unavailable Unavailable + [place] [address] ONEEIGHTY Unavailable [address] + [address] [place] [address] MARCO MONIQUE Unavailable [address] + [place] [address] Goodlin, Daniela Unavailable . + [place] [address] ONEEIGHTY Unavailable [address] + [address] [address] MARCO MONIQUE Unavailable [address] + [place] [address] Goodlin, Daniela Unavailable . + [place] [address] ONEEIGHTY Unavailable [address] + [address] [address] MARCO MONIQUE Unavailable [address] + [place] [address] GOODLIN, DANIELA Unavailable . + [facility] . ONEEIGHTY Unavailable [address] + [address] [place] [address] MARCO MONIQUE Unavailable [address] + [place] [address] GOODLIN, DANIELA Unavailable . + [facility] . ONEEIGHTY Unavailable [address] + [address] [place] [address] MARCO MONIQUE Unavailable [address] + [place] [address] David Daniela Unavailable . + [place] [address] ONEEIGHTY Unavailable [address] + [address] [address] MARCO MONIQUE Unavailable [address] + [place] [address] David, Daniela Unavailable . + [place] [address] ONEEIGHTY Unavailable [address] + [address] [address] MARCO MONIQUE Unavailable [address] + [place] [address] David Daniela Unavailable . + [place] [address] ONEEIGHTY Unavailable [address] + [address] [address] MARCO MONIQUE Unavailable [address] + [place] [address] ONEEIGHTY Unavailable [address] + [address] [place] [address] MONIQUE LARA Unavailable [address] + [place] [address] ONEEIGHTY Unavailable [address] + [address] [place] [address] MONIQUE LARA Unavailable [address] + [place] [address] David Daniela Unavailable . + [place] [address] ONEEIGHTY Unavailable [address] + [address] [address] MARCO MONIQUE Unavailable [address] + [place] [address] ONEEIGHTY Unavailable [address] + [address] [place] [address] MARCO MONIQUE Unavailable [address] + [place] [address] ONEEIGHTY Unavailable [address] + [address] [address] MARCO MONIQUE Unavailable [address] + [place] [address] ONEEIGHTY Unavailable [address] + [address] [address] MONIQUE LARA Unavailable [address] + [place] [address] ONEEIGHTY Unavailable [address] + [address] [place] [address] MONIQUE LARA Unavailable [address] + [place] [address] ONEEIGHTY Unavailable [address] + [address] [place] [address] MONIQUE LARA Unavailable [address] + [place] [address] ONEEIGHTY Unavailable [address] + [address] [place] [address] MONIQUE LARA Unavailable [address] + [place] [address] Care Team Providers Name Role Phone Birch RunGuillermina Primary Care Unavailable Ernst Doran Admitting Unavailable Paco Doranaseradha Attending Unavailable Richard, [place] Consulting Unavailable Dre, Angus Consulting Unavailable PROVIDER, ED PHYSICIAN Attending Unavailable [facility] Primary Care Unavailable Angus Erickson Attending Unavailable [facility] Guillermina Referring Unavailable Angus Erickson Attending Unavailable Dre, Angus Referring Unavailable [facility] Primary Care Unavailable Flex Hearn Attending Unavailable [facility] Guillermina Referring Unavailable [facility] Primary Care Unavailable Marvin Rothman Attending Unavailable Corbin Montgomery Attending Unavailable Corbin Montgomery Referring Unavailable [facility] Primary Care Unavailable [place], Guillermina Consulting Unavailable Juan, Anthony Admitting Unavailable Angus Erickson Attending Unavailable [facility] Primary Care Unavailable Dre, Angus Consulting Unavailable Jopperi, Corbin Consulting Unavailable Juan, Anthony Admitting Unavailable Brando Montgomeryic Attending Unavailable [facility] Primary Care Unavailable Dre, Angus Consulting Unavailable Jopperi, Corbin Consulting Unavailable Juan, Anthony Admitting Unavailable DreAngus doherty Attending Unavailable [facility] Primary Care Unavailable Dre, Angus Consulting Unavailable Jopperi, Corbin Consulting Unavailable Juan, Anthony Admitting Unavailable Brando Montgomeryic Attending Unavailable [facility] Primary Care Unavailable Dre, Angus Consulting Unavailable Jopperi, Corbin Consulting Unavailable Juan, Anthony Admitting Unavailable Stanton, Guillermina Primary Care Unavailable Dre, Angus Consulting Unavailable Juan, Anthony Attending Unavailable Juan, Anthony Consulting Unavailable Richard, [place] Attending Unavailable Flex Hearn Attending Unavailable Stanton, Guillermina Referring Unavailable Stanton, Guillermina Primary Care Unavailable Ani Woods Attending Unavailable DreAngus Attending Unavailable Stanton, Guillermina Referring Unavailable Stanton, Guillermina Primary Care Unavailable Neeru Stallings Attending Unavailable Ashelfah, Ghasem Admitting Unavailable Ashelfah, Ghasem Attending Unavailable Stanton, Guillermina Primary Care Unavailable Richard, Trae Consulting Unavailable Dre, Angus Consulting Unavailable Ashelfah, Ghasem Consulting Unavailable Ashelfah, Ghasem Admitting Unavailable Dre, Angus Attending Unavailable Stanton, Guillermina Primary Care Unavailable Richard, [place] Consulting Unavailable Dre, Angus Consulting Unavailable Ashelfah, Ghasem Consulting Unavailable Ashelfah, Ghasem Admitting Unavailable Marti Chisholm SANITARIAN-C Attending Unavailable Stanton, Guillermina Primary Care Unavailable Richard, Trae Consulting Unavailable Dre, Angus Consulting Unavailable Ashelfah, Ghasem Consulting Unavailable Roxi Hernández Attending Unavailable Roxi Hernández Referring Unavailable Stanton, Guillermina Primary Care Unavailable Mima Mata Attending Unavailable Stanton, Guillermina Primary Care Unavailable AdolfoMukeshMima Referring Unavailable Mima Mata Attending Unavailable Stanton, Guillermina Primary Care Unavailable Mima Mata Referring Unavailable Angus Erickson Attending Unavailable Stanton, Guillermina Referring Unavailable Brendon Toscano Attending Unavailable Stanton, Guillermina Primary Care Unavailable Jabour, Brendon Referring Unavailable Stanton, Guillermina Attending Unavailable Stanton, Guillermina Referring Unavailable Stanton, Guillermina Primary Care Unavailable Ani Herbert Consulting Unavailable Flex Hearn Attending Unavailable Flex Hearn Referring Unavailable Stanton, Guillermina Primary Care Unavailable Flex Hearn Attending Unavailable Stanton, Guillermina Referring Unavailable Stanton, Guillermina Primary Care Unavailable Angus Erickson Attending Unavailable Dre Angus Referring Unavailable Ranulfo Balderas D.O. Attending Unavailable Angus Erickson Referring Unavailable Richard Sprague Attending Unavailable Brendon Toscano Attending Unavailable Tamar, Brendon Referring Unavailable Stanton, Guillermina Primary Care Unavailable Namrata Tee Attending Unavailable Angus Erickson Attending Unavailable Dre, Angus Referring Unavailable Stanton, Guillermina Primary Care Unavailable Angus Erickson Attending Unavailable Dre, Angus Referring Unavailable Stanton, Guillermina Primary Care Unavailable Juan, Anthony Admitting Unavailable Marti Chisholm SANITARIAN-C Attending Unavailable Stanton, Guillermina Primary Care Unavailable Dre, Angus Consulting Unavailable Corbin Montgomery Consulting Unavailable Guillermina Stanton Primary Care Unavailable Juan, Anthony Admitting Unavailable Angus Erickson Consulting Unavailable Corbin Montgomery Attending Unavailable Ashelfah, Ghasem Admitting Unavailable Ashelfah, Ghasem Attending Unavailable Guillermina Stanton Primary Care Unavailable Ashelfah, Ghasem Consulting Unavailable TAMAR WILKERSON, DR. COOPER Attending Unavailable ROMY WILKERSON, DR. GUILLERMINA Skinner Primary Care Unavailable LAJUANY, MARK Nassar Attending Unavailable FLEX HEARN Referring Unavailable KANAA'N V, JORGE HANNA Admitting Unavailable KANAA'N V, JORGESONYA FERREIRA Attending Unavailable SOLTESZ, EDWARD G Referring Unavailable SOLTESZ, EDWARD G Referring Unavailable SOLTESZ, EDWARD G Referring Unavailable BOONE PERRY Attending Unavailable SOLTESZ, EDWARD G Referring Unavailable SOLTESZ, EDWARD G Referring Unavailable SOLTESZ, EDWARD G Attending Unavailable GUILLERMINA STANTON Referring Unavailable SOLTESJennifer, EDWARD G Attending Unavailable SOLTESZ, EDWARD G Referring Unavailable SOLTESZ, EDWARD G Referring Unavailable SOLTESZ, EDWARD G Referring Unavailable SOLTESZ, EDWARD G Referring Unavailable SOLTESZ, EDWARD G Referring Unavailable SOLTESZ, EDWARD G Referring Unavailable SOLTESZ, EDWARD G Attending Unavailable MARK HOLLINS Referring Unavailable LAHORRA, MARK Nassar Referring Unavailable LAHORRA, MARK Nassar Referring Unavailable LAHORRA, MARK Nassar Referring Unavailable LAHORRAMARK Attending Unavailable FLEX HEARN Referring Unavailable Guillermina Stanton Primary Care Unavailable KANAA N, JORGE Admitting Unavailable KANAA N, JORGE Attending Unavailable Guillermina Stanton Primary Care Unavailable PROBLEMS PROBLEMS DATE TYPE CONDITION / CODE ATTENDING STATUS SOURCE 02/07/2018 Active Encounter for other NA Active [place] preprocedural [facility] Main examination / [place] Z01.818(ICD-10) Repository 02/07/2018 Active Nontoxic single NA Active [place] thyroid nodule / Clinic Main E04.1(ICD-10) [place] Repository 02/07/2018 Active Obstructive sleep NA Active [place] apnea (adult) Clinic Main (pediatric) / [place] G47.33(ICD-10) Repository 02/07/2018 Active Nonrheumatic mitral SOLTESJennifer, Active [place] (valve) stenosis / [facility] Main I34.2(ICD-10) [place] Repository 02/07/2018 Active Encounter for NA Active [facility] pre[facility]cedural Clinic Main cardiovascular [place] examination / Repository Z01.810(ICD-10) 02/07/2018 Active Type 2 diabetes NA Active [place] mellitus without Clinic Main complications / [place] E11.9(ICD-10) Repository 01/08/2018 Active Nontoxic NA Active [facility] multinodular goiter Clinic Main / E04.2(ICD-10) [place] Repository 02/04/2018 Unknown J47.9 - DreAngus doherty Active [place] Bronchiectasis, Community uncomplicated / Hospital J47.9(ICD-10) Repository 02/04/2018 Unknown G47.33 - Obstructive DreAngus doherty Active [place] sleep apnea (adult) Community (pediatric) / Hospital G47.33(ICD-10) Repository 02/04/2018 Unknown E66.01 - Morbid DreAngus doherty Active [place] (severe) obesity due Community to excess calories / Hospital E66.01(ICD-10) Repository 02/04/2018 Unknown Z68.41 - Body mass DreAngus doherty Active [place] index (BMI) Community 40.0-44.9, adult / Hospital Z68.41(ICD-10) Repository 02/04/2018 Unknown I27.29 - Other DreAngus doherty Active [place] secondary pulmonary Community hypertension / Hospital I27.29(ICD-10) Repository 12/25/2017 Active Shortness of breath NA Active [facility] / R06.02(ICD-10) Clinic Main [place] Repository 11/06/2017 Active Rheumatic mitral LAHORRA, Active [place] stenosis / [facility] Clinic Other I05.0(ICD-10) [place] Repository 11/06/2017 Active Chronic diastolic LAHORRA, Active [place] (congestive) heart [facility] Other failure / [place] I50.32(ICD-10) Repository 11/06/2017 Active Rheumatic mitral LAHORRA, Active [place] valve disease, [facility] Clinic Other unspecified / [place] I05.9(ICD-10) Repository 11/06/2017 Admitting Unknown / LAHORRA, Active [place] General diagnosis UNK(Unknown) [facility] Health System Repository 10/17/2017 Unknown Z86.73 - Personal Flex Hearn Active [place] history of transient Community ischemic attack Hospital (TIA), and cerebral Repository infarction without residual deficits / Z86.73(ICD-10) 10/17/2017 Unknown I34.2 - Nonrheumatic Flex Hearn Active [place] mitral (valve) Community stenosis / Hospital I34.2(ICD-10) Repository 10/17/2017 Unknown E78.5 - Flex Hearn Active [place] Hyperlipidemia, Community unspecified / Hospital E78.5(ICD-10) Repository 10/15/2017 Unknown J94.8 - Other Dre, Angus Active [place] specified pleural Community conditions / Hospital J94.8(ICD-10) Repository 10/03/2017 Unknown J90 - Pleural Jopperi, Corbin Active [place] effusion, not Community elsewhere classified Hospital / J90(ICD-10) Repository 10/03/2017 Unknown D50.9 - Iron Jopperi, Corbin Active [place] deficiency anemia, Community unspecified / Hospital D50.9(ICD-10) Repository 10/03/2017 Unknown 280.9 - Iron Jopperi, Corbin Active [place] deficiency anemia, Community unspecified / Hospital 280.9(ICD-9) Repository 10/03/2017 Unknown I10 - Essential Jopperi, Corbin Active [place] (primary) Community hypertension / Hospital I10(ICD-10) Repository 10/03/2017 Unknown 401.1 - Benign Jopperi, Corbin Active [place] essential Community hypertension / Hospital 401.1(ICD-9) Repository 10/17/2017 Unknown R06.02 - Shortness [place], Active [place] of breath / [facility] Community R06.02(ICD-10) Hospital Repository 07/03/2017 Unknown J45.40 - Moderate Dre, Angus Active [place] persistent asthma, Community uncomplicated / Hospital J45.40(ICD-10) Repository 07/03/2017 Unknown R91.8 - Other Dre, Angus Active [place] nonspecific abnormal Community finding of lung Hospital field / Repository R91.8(ICD-10) 06/12/2017 Unknown R06.00 - Dyspnea, [place], Active [place] unspecified / [place] Community R06.00(ICD-10) Hospital Repository PROCEDURES PROCEDURES No Procedure Records FoundRESULTS RESULTS CNCO Observed: 02/18/2018 Status: COMPLETED Source: [place] 12:00 AM CLINIC MAIN CAMPUS REPOSITORY Letter Text RENAL PROFILE Collected: 02/10/2018 Status: F Source: [place] 11:16 AM [facility] TYPE CODE TESTS RESULT OUT OF RANGE REFERENCE UNITS LAB L501.0100 74-106 mg/dL Normal GLU 77 Result Comment: Please note revised GLUCOSE reference range effective 2017. LAB L501.1000 7-18 mg/dL High BUN 41 LAB L501.1100 0.55-1.02 mg/dL High CREAT,SERUM 1.57 Result Comment: The validity of the calculated GFR AND GFRAA in patients over 70 years has not been determined. Clinical correlation is essential. LAB L501.1110 >60 mL/min Low EST GFR 34 Result Comment: Non- GFR Calc LAB L501.1115 >60 mL/min Low EST GFR - AA 41 Result Comment: GFR Calc LAB L501.1300 10-20 RATIO High BUN/CRE 26.1 LAB L501.1800 3.2-5.0 g/dL Normal ALB 3.2 LAB L501.2200 8.5-10.1 mg/dL CA Normal 9.4 LAB L501.2300 2.5-4.9 mg/dL Normal PHOS 3.7 LAB L501.5300 136-145 mmol/L NA Normal 143 LAB L501.5600 3.5-5.1 mmol/L K Normal 4.4 LAB L501.5900 98-107 mmol/L CL Normal 104 LAB L501.6100 21.0-32.0 mmol/L Normal CO2 30.0 Performed By: #### L500.3600 #### [facility] [address] [place], [place], [id number] PROGRESS Observed: 02/08/2018 Status: COMPLETED Source: [place] 8:36 AM [facility] REPOSITORY HNO ID: [id number] Author: Bigg Lim Service: (none) Author Type: Physician Type: Progress Notes Filed: 02/08/2018 8:40 AM Note Text: Thoracic and Cardiovascular Surgery [facility] CARDIOTHORACIC CLINIC NOTE CHART COPY DO NOT DISCARD Patient Type: Established Visit to determine Surgery: Yes PCP: Guillermina Stanton MD ([facility]) [address] [place] [address] Referring Physician:: Mark Hollins MD [address] [facility] [address] Ms. Dedra Lara returns to clinic today for continued evaluation. She is a 72 year old female with severe mitral stenosis with extensive MAC. Dental clearance obtained. Cr 2.12. Dental clearance obtained. Impression: Severe mitral stenosis with extensive MAC Plan: We will proceed with combined case with Drs. Cano and Jacob: median sternotomy, open mitral valve replacment using Miles TAVR valve. Consent obtained. I spent more than 50% of the visit face to face counseling the patient on the plan and treatment options. The time spent counseling was 20 minutes. The total time of the face to face visit was 20 minutes. These findings will be communicated back to the requesting physician via mail. Bigg Lim MD PROGRESS Observed: 02/07/2018 Status: COMPLETED Source: [place] 5:46 PM [facility] REPOSITORY HNO ID: [id number] Author: Padmini Church) Jose Service: (none) Author Type: Nurse Practitioner Type: Progress Notes Filed: 02/07/2018 5:47 PM Note Text: AMBULATORY PATIENT EDUCATION READINESS TO LEARN Cognitive Ability: Alert and oriented Motivation To Learn: Interested Family Support: High - Very involved in pt care Instruction Provided To: Patient AND Family Patient Learns Best By: Multiple Methods Factors Affecting Learning: None Physical Limitations Affecting Learning: None LEARNING RESPONSE Diagnosis: mitral stenosis Education Topic: Pre-Op Open Heart Surgery Instructions Teaching Points: Logistics / Protocols /Complication Prevention Instruction/Supplemental Materials: Cardiac Surgery Information Binder, Individual Instruction Patient/Family Response: Verbalizes understanding Follow up plan: Patient/Family to call [facility] with any further questions Referral (Recommendation): None Teach completed, topic: Bactroban instructions given PROGRESS Observed: 02/07/2018 Status: COMPLETED Source: [place] 5:30 PM [facility] REPOSITORY HNO ID: [id number] Author: Padmini Church) Jose Service: (none) Author Type: Nurse Practitioner Type: Progress Notes Filed: 02/07/2018 5:30 PM Note Text: SEE HANDP NOTE STAPH AUREUS PCR Collected: 02/07/2018 Status: F Source: [place] 4:27 PM [facility] REPOSITORY TYPE CODE TESTS RESULT OUT OF REFERENCE UNITS RANGE LAB [facility] Nasal S aureus Spec Source LAB [facility] Negative for MRSA MRSA by PCR. PCR LAB [facility] Negative for Staph Staphylococcus aureus PCR aureus by PCR. Performed By: #### SAPCR #### [facility] [address] [place], [place] [address] PROGRESS Observed: 02/07/2018 Status: COMPLETED Source: [place] 4:22 PM [facility] MAIN CAMP[facility] REPOSITORY HNO ID: [id number] Author: Padmini Winters Service: (none) Author Type: Nurse Practitioner Type: Progress Notes Filed: 02/07/2018 6:21 PM Note Text: CONSULT HISTORY and PHYSICAL CARDIOTHORACIC SURGERY Consulting Service: Cardiothoracic Surgery Requesting Provider: [facility] Purchase Request Editor, Boone Perry MD on 12/25/17. Opinion/advice regarding: Pre-Op Open Heart Surgery Cardiothoracic Physician: Bigg Lim M.D. NAME: Dedra Lara HEIGHT: 157.1 cm WEIGHT: 93 kg Intended Procedure: Sternotomy, open placement of Miles Valve REDO: No STS SCORE: n/a Has this patient been previously evaluated for Open Heart Surgery for this condition? Yes, but refered to [facility] for surgical managment HPI: (4) This is a 72 year old female who presents in consultation for an opinion regarding treatment options for mitral stenosis and MAC. She was evaluated by Dr. Perry on 12/25/17 after being referred by Dr. Hollins for surgical evaluation for mitral stenosis. The patient states she was diagnosed with mitral stenosis in 2015 and has been followed since that time by a kraft digester operator in [place]. She was initially referred for possible mitral balloon valvuloplasty, but was not considered and optimal candidate due to the amount of mitral annular calcification. She is now referred to Dr. Lim for open sternotomy and mitral valve replacement. The patient's largest complaint is fatigue. Specifically she states she ' is so friggin' tired. She has not been sleeping well and has been finding it hard to keep up with ADL's at home. She states that her breathing is OK, and does not experience much exertional dyspnea. She states that she follows with her local corporation secretary for LADI (uses bipap nightly) and Asthma, but notes that her corporation secretary recently noted to her that he feels that she does not have asthma and that her breathing issues are more cardiac related and therefore recently stopped her Symbicort. She denies chest pain, palpitations, lightheadedness/dizziness and syncope when asked. 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 Comorbidities include Hyperlipidemia, CKD, H/O NSTEMI, LADI (on BiPap) PAST MEDICAL HISTORY: PAST MEDICAL HISTORY Diagnosis Date - CAD (coronary artery disease) - Diabetes mellitus, type II (HCC) - Edema extremities - History of tobacco use - HLD (hyperlipidemia) - HTN (hypertension) - Morbid obesity with BMI of 40.0-44.9, adult ([facility]) - Nonrheumatic mitral (valve) stenosis - NSTEMI (non-ST elevated myocardial infarction) ([facility]) - LADI (obstructive sleep apnea) - Pleural effusion - Pulmonary HTN ([facility]) - TIA (transient ischemic attack) PAST SURGICAL HISTORY: PAST SURGICAL HISTORY Procedure Laterality Date - CARPAL TUNNEL - CHOLECYSTECTOMY - ECHOCARDIOGRAM 09/17/2017 at [facility] - LEFT HEART CATH 06/25/2017 at [facility] - SHOULDER ARTHROSCOPY/SURG - TONSILLECTOMY AND ADENOIDECTOMY HX FAMILY HISTORY: FAMILY HISTORY Problem Relation Age of Onset - Diabetes Mother - Heart Father CAD - Diabetes Father - Hypertension Father FAMILY HISTORY OF CAD: Yes SOCIAL HISTORY: Social History Substance Use Topics - Smoking status: Former Smoker Types: Cigarettes Quit date: 11/07/2003 - Smokeless tobacco: Never Used - Alcohol use Yes Comment: holidays / special occasions only SOCIAL HISTORY OF IVDU: No SOCIAL HISTORY OF Smoking: Yes SOCIAL HISTORY OF Alcohol Dependency: No MEDICATIONS: Prior to Admission Medications: ferrous sulfate 325 mg (65 mg iron) tablet Take 1 tablet by mouth twice daily. TAKE WITH FOOD. furosemide (LASIX) 40 mg tablet Take 40 mg by mouth twice daily. glipiZIDE (GLUCOTROL XL) 10mg 24 hr tablet Take 10 mg by mouth twice daily. metoprolol tartrate, short acting, (LOPRESSOR) 50 mg tablet Take 50 mg by mouth twice daily. Taking 25 mg in am AND 50 mg @ night montelukast (SINGULAIR) 10 mg tablet Take 10 mg by mouth once daily. KLOR-CON M20 20 mEq tablet Take 20 mEq by mouth once daily. simvastatin (ZOCOR) 20 mg tablet Take 20 mg by mouth daily at bedtime. traZODone (DESYREL) 50 mg tablet Take 50 mg by mouth daily at bedtime. BASAGLAR KWIKPEN U-100 INSULIN 100 unit/mL (3 mL) inpn INJECT 80 UNITS SUB-Q (UNDER THE SKIN) ONCE DAILY aspirin, enteric coated (ASPIRIN, ENTERIC COATED) 81 mg EC tablet Take 81 mg by mouth once daily. mupirocin (BACTROBAN) 2 % ointment Apply twice the day before surgery, and once in the morning before surgery. ciprofloxacin HCl (CIPRO) 250 mg tablet Take 1 tablet by mouth twice daily for 3 days. VENTOLIN HFA 90 mcg/actuation inhaler Inhale 2 Puffs as instructed. traMADol (ULTRAM) 50 mg tablet Take 50 mg by mouth three times daily. ALLERGIES: ALLERGIES Allergen Reactions - Cephalexin Diarrhea - Doxycycline Rash - Hydrocodone Bitartr* Shortness of Breath - Indomethacin Diarrhea - Ketoprofen Diarrhea - Metformin Diarrhea - Nitrofurantoin Shortness of Breath - Penicillins Hives - Percocet [Oxycodone* Rash - Sulfa (Sulfonamide * Other: See Comments Sore tongue - Tiotropium Shortness of Breath COMPLETE REVIEW OF SYSTEMS: (10) Constitutional: No weight loss, malaise or fevers/chills. HEENT: Negative for frequent or significant headaches, No changes in hearing or vision, no nose bleeds or other nasal problems, Negative for difficulty swallowing Resp: Negative for cough, wheezing, or shortness of breath. Positive for LADI (uses Bipap) Cardiovascular: Negative for chest pain, leg swelling or palpitations, Negative for orthopnea and paroxysmal nocturnal dyspnea and Vascular: Denies GI: Negative for abdominal discomfort, blood in stools or black stools or change in bowel habits, Negative for diarrhea and heart burn and Positive for constipation (on iron) : No history of dysuria, frequency, or incontinence and No difficulty urination, nocturia >1 times per night or hematuria Endo: Negative for polyuria, polydipsia and goiter and Positive for cold intolerance and DM (on insulin and oral agents). Positive for thyroid nodules. Heme/Lymph: Negative for prolonged bleeding, bruising easily or swollen nodes Neurologic: No history or headaches, syncope, CVA, paralysis, seizures or tremors Integumentary: Negative for lesions, rash, and itching. Additional systems reviewed: Pain: Negative for pain, history of chronic pain, or current treatment for a chronic pain condition and Musculoskeletal: Negative for joint pain or swelling and back pain and Positive for muscle pain (bilateral arms and legs) PHYSICAL EXAM: (8) BP 130/52 (BP Site: Left Arm, BP Position: Sitting) Pulse 68 Temp 36.6 ?C (97.8 ?F) (Oral) Resp 18 Ht 154.9 cm (5' 1) SpO2 96% BMI 40.06 kg/m? Right Handed Constitutional: Well developed, Well nourished , Overweight and No acute distress HEENT: PERRL and EOM's intact. + full top denture, and partial lower denture noted. Resp: Clear and Respiratory effort: normal Cardiovascular: Regular rate AND rhythm, distant heart sounds, + soft diastolic murmur at the apex Vascular: Pulses - Grade 2/4 distal bilateral pulses, trace BLE edema and no varicosities GI: Soft, Non-tender, Bowel sounds present and Non-distended Integumentary: Warm, Dry and No rash on chest, arms or legs Musculoskeletal: No joint deformities Neurological/Psychiatric: Oriented to time, place AND person , Alert, Steady gait and No gross focal neurologic deficits Additional systems reviewed: No additional systems reviewed Labs: Recent Labs 02/07/18 0935 WBC 6.12 HB 11.6 HCT 33.9* PLT 164 Recent Labs 02/07/18 0935 INR 1.1 APTT 25.9 Recent Labs 02/07/18 0935 NA 139 K 5.0 CHLOR 100 CO2 27 BUN 47* CREAT 2.12* GLUC 118* ALKPHOS 89 ALT 16 AST 25 ALB 3.7* ABO/RH(D) Date Value Ref Range Status 02/07/2018 B NEGATIVE Final Antibody Screen Date Value Ref Range Status 02/07/2018 NEG Final Hemoglobin A1C (%) Date Value 02/07/2018 6.5 DATA: I have personally reviewed the following data: R AND L Cardiac Catheterization: (outside) images In [facility] TTE: 02/07 CXR: 12/25 U/S Thyroid: 02/07 CT Chest: 12/25 Colby's: 02/07 Dental clearance Cleared - See Scanned Document EK/17 Impression: This is a 72 year old year-old female, who is being evaluated for surgical intervention of mitral stenosis. In consideration for surgery, the patient's acute and chronic medical issues have been evaluated as documented above and reviewed in the electronic medical record. Plan: Patient will be seen today by the surgeon, Dr. Bigg Lim M.D.. If the patient is a surgical candidate according to criteria met, then advise the following: ? Bactroban, prescriptions and instructions given. ? Anticoagulation instructions: Patient instructed to stop Baby ASA and OTC 5 days before surgery (last dose to be on 02/21/18). ? Screening UA Positive. Patient give presciption for Cipro (250 mg BID x 3 days based on renal dosing) ? Pre Op Instructions per protocol reviewed and handout given to patient . ? Patient Education completed and documented. ? Emotional support provided to patient and family. All questions and concerns adressed. Advanced directives are complete. Patient instructed to have document scanned at J1-1 admitting interview. Anticipated Discharge Needs: PT/OT/RT evalulation for anticipated Home Care needs These findings will be communicated back to the requesting provider electronically. SIGNATURE: Padmini Winters APRN.CNP PAGER: [phone] Date of Service: 02/07/2018 Time of Service: 4:22 PM CNOV Observed: 02/07/2018 Status: COMPLETED Source: [place] 2:00 PM [facility] REPOSITORY Office Visit (CARTMN) DEDRA LARA ([id number]) 1945 F Date Time Provider Department 02/07/18 2:[address] [facility] CARTVT During your visit today, we recorded the following information about you: Padmini Winters APRN.CNP 02/07/2018 5:30 PM Signed SEE HANDP NOTE Referring Provider: MARK HOLLINS [[id number]] Allergies As of Date: 02/07/2018 Noted Allergy Reaction CEPHALEXIN 11/05/2017 6 - Diarrhea DOXYCYCLINE 2 - Rash HYDROCODONE BITARTRATE 11/05/2017 12 - Shortness of Breath INDOMETHACIN 11/05/2017 6 - Diarrhea KETOPROFEN 11/05/2017 6 - Diarrhea METFORMIN 11/05/2017 6 - Diarrhea NITROFURANTOIN 11/05/2017 12 - Shortness of Breath PENICILLINS 11/05/2017 4 - Hives PERCOCET (OXYCODONE-ACETAMINOPHEN)11/06/2017 2 - Rash SULFA (SULFONAMIDE ANTIBIOTICS) 11/05/2017 14 - Other: See Comments Comments: Sore tongue TIOTROPIUM 11/05/2017 12 - Shortness of Breath Date Reviewed: 02/07/2018 Reviewed by: Padmini (Emily) Jose - Fully Assessed Primary Visit Diagnosis:Mitral valve stenosis, unspecified etiology [I05.0] Prescriptions as of 02/07/2018 Sig: IV CONTRAST (RADIOLOGY PROCED* CT Chest W -Inject, intraveno* VENTOLIN HFA 90 MCG/ACTUATION* Inhale 2 Puffs as instructed. FERROUS SULFATE 325 MG (65 MG* Take 1 tablet by mouth twice * FUROSEMIDE 40 MG TABLET Take 40 mg by mouth twice didi* GLIPIZIDE ER 10 MG TABLET, EX* Take 10 mg by mouth twice didi* LISINOPRIL 20 MG TABLET Take 20 mg by mouth daily at * METOPROLOL TARTRATE 50 MG TAB* Take 50 mg by mouth twice didi* MONTELUKAST 10 MG TABLET Take 10 mg by mouth once william* KLOR-CON M20 MEQ TABLET,EXTEN* Take 20 mEq by mouth once didi* SIMVASTATIN 20 MG TABLET Take 20 mg by mouth daily at * TRAMADOL 50 MG TABLET Take 50 mg by mouth three juan antonio* TRAZODONE 50 MG TABLET Take 50 mg by mouth daily at * BASAGLAR KWIKPEN U-100 INSULI* INJECT 80 UNITS SUB-Q (UNDER * ASPIRIN 81 MG TABLET,DELAYED * Take 81 mg by mouth once william* Problem List As Of Date 02/07/2018 Noted Resolved Multiple thyroid nodules [E04.2] INVALID FOR* Encounter Status:Closed by PADMINI WINTERS CNP on 02/07/18 CNOV Observed: 02/07/2018 Status: COMPLETED Source: [place] 2:00 PM [facility] REPOSITORY Office Visit (CARTMN) DEDRA LARA ([id number]) 1945 F Date Time Provider Department 02/07/18 2:00 PM [facility] CARTMN During your visit today, we recorded the following information about you: Mari Limon MD 02/07/2018 6:19 PM Signed [facility] CARDIOTHORACIC ANESTHESIA CARDIAC SURGERY SERVICE DATE: 02/07/2018 SERVICE TIME: 1:08 PM Proposed Surgical Procedure: Mitral Valve Surgery Re-do: No ASA Class: 4 Surgeon: Carina Surgery Date: 02/26/18 Last Wt 12/31/17 : 96.2 kg (212 lb) Last Ht 12/31/17 : 154.9 cm (5' 1) Estimated body mass index is 40.06 kg/m? as calculated from the following: Height as of 12/31/17: 154.9 cm (5' 1). Weight as of 12/31/17: 96.2 kg (212 lb). Estimated body surface area is 2.03 meters squared as calculated from the following: Height as of 12/31/17: 154.9 cm (5' 1). Weight as of 12/31/17: 96.2 kg (212 lb). 72 year old with DM, HTN, HLD, CAD, Morbid obesity, LADI, Pulm HTN, CKD and MS now scheduled for an MVR. Reports she has never had a TIA, has seen a neurologist and was actually diagnosed with silent migraines. Reports she can walk a flight of stairs without shortness of breath. When she becomes tired it is frequently secondary to her knees/orthopedic concerns. Reports feeling tired making her stop but she denies any chest pain. Had more shortness of breath prior to having her lasix dose increased (09/2017) and having her thoracentesis also in September 2017 (-2L). PAST MEDICAL HISTORY Diagnosis Date - CAD (coronary artery disease) - Diabetes mellitus, type II (HCC) - Edema extremities - History of tobacco use - HLD (hyperlipidemia) - HTN (hypertension) - Morbid obesity with BMI of 40.0-44.9, adult (HCC) - Nonrheumatic mitral (valve) stenosis - NSTEMI (non-ST elevated myocardial infarction) ([facility]) - LADI (obstructive sleep apnea) - Pleural effusion - Pulmonary HTN ([facility]) - TIA (transient ischemic attack) PAST SURGICAL HISTORY Procedure Laterality Date - CARPAL TUNNEL - CHOLECYSTECTOMY - ECHOCARDIOGRAM 09/17/2017 at [facility] - LEFT HEART CATH 06/25/2017 at [facility] - SHOULDER ARTHROSCOPY/SURG - TONSILLECTOMY AND ADENOIDECTOMY HX FAMILY HISTORY Problem Relation Age of Onset - Diabetes Mother - Heart Father CAD - Diabetes Father - Hypertension Father Social History Substance Use Topics - Smoking status: Former Smoker Types: Cigarettes Quit date: 11/07/2003 - Smokeless tobacco: Never Used - Alcohol use Yes Comment: holidays / special occasions only ALLERGIES Allergen Reactions - Cephalexin Diarrhea - Doxycycline Rash - Hydrocodone Bitartr* Shortness of Breath - Indomethacin Diarrhea - Ketoprofen Diarrhea - Metformin Diarrhea - Nitrofurantoin Shortness of Breath - Penicillins Hives - Percocet [Oxycodone* Rash - Sulfa (Sulfonamide * Other: See Comments Sore tongue - Tiotropium Shortness of Breath REVIEW OF SYSTEMS: Neuro: Patient denies stroke, seizure, TIA's . Respiratory: ?History of asthma. No history of current cough or dyspnea, or pneumonia in the past 6 weeks. No history of respiratory/pulmonary symptoms or problems Cardiovascular: See HPI GI: No history of GI symptoms or problems. No history of esophageal varices, recent ascites, or ETOH greater than 2 drinks per day. Endocrine: diabetes on insulin, multiple thyroid nodules. Denies recent steroids. Hematology: Chronic anti-coagulation / platelet meds (Aspirin) CKD AND ANEMIA ASSESSMENT: Patient has both eGFR < 60 mL/min and a Hemoglobin < 11 g/dl: No if the patient is going on CPB. ANESTHETIC HISTORY: History of general anesthesia without complications. AIRWAY ASSESSMENT: Full upper plate, lower partial. Airway History: No abnormal airway history Airway Exam: General: Morbid obesity. Thick neck. Mallampati Score: CLASS III Temporo-Mandibular Displacement Test: Position A (lower teeth can be advanced beyond upper teeth) Interincisor Distance: 4 cm Thyromental Distance: 6 cm Neck Circumference: 45 cm Overbite: No Cervical Mobility: Normal Facial Hair: No Head/Neck Pathology: No ANTICIPATED DIFFICULT AIRWAY: NO Patient has sleep apnea and will bring her own BiPAP machine. PHYSICAL EXAM: VITALS: There were no vitals taken for this visit. CARDIAC: Regular rate and rhythm. Diastolic murmur. LUNGS: Lungs clear to auscultation. Good air entry bilaterally. Lines, Drains, Airway: Patient has no lines, drains or airway LABS: Lab Results Past 6 Months Component Value Date HB 11.6 02/07/2018 HCT 33.9 (L) 02/07/2018 PLT 164 02/07/2018 WBC 6.12 02/07/2018 NA 139 02/07/2018 K 5.0 02/07/2018 CREAT 2.12 (H) 02/07/2018 CA 9.8 02/07/2018 APTT 25.9 02/07/2018 INR 1.1 02/07/2018 Lab Results Past 6 Months Component Value Date GLUC 118 (H) 02/07/2018 K 5.0 02/07/2018 NA 139 02/07/2018 CHLOR 100 02/07/2018 CO2 27 02/07/2018 CREAT 2.12 (H) 02/07/2018 BUN 47 (H) 02/07/2018 ANION 12 02/07/2018 CA 9.8 02/07/2018 TPROT 7.5 02/07/2018 ALB 3.7 (L) 02/07/2018 TBILI 0.5 02/07/2018 ALKPHOS 89 02/07/2018 AST 25 02/07/2018 ALT 16 02/07/2018 ABO/RH(D) (no units) Date Value 12/25/2017 B NEGATIVE Antibody Screen (no units) Date Value 12/25/2017 NEG Historical Ab Scr Status (no units) Date Value 02/07/2018 NEGATIVE Anticipated Blood Products Ordered: No blood product orders needed. Will the Patient Accept Blood: Yes IMAGING AND TESTS: CT SCAN: IMPRESSION: 1. The thoracic aorta is normal in course and caliber, with moderate calcific atherosclerotic changes of the aortic arch and descending aortic segment. 2. Extensive mitral valve annular calcifications, with extension into the left ventricular inferoseptal myocardium. 3. Severe coronary calcifications. 4. Multiple bilateral thyroid nodules are noted, largest measuring 1.8 cm on the right and 2.1 cm on the left, with the latter having wall calcifications. ?Correlation with thyroid ultrasound is recommended. 5. A 1.6 cm asymmetric opacity is seen in the right lower breast (image #[id number]). ?Correlation with mammography is recommended. 6. Multiple incidental pulmonary nodules as described in the body of the report. Incidental Finding: ?Follow-up for these incidentally detected lung nodules with chest CT exam is recommended in 3-6 months. If stable on follow-up imaging, a repeat chest CT exam in 12 months (15-18 months from the initial exam) is recommended. 7. Nodular appearance of the visualized liver surface suggestive of cirrhosis. Consider liver ultrasound. 8. Moderate right pleural effusion with adjacent atelectasis. ECG: Diagnosis:SINUS BRADYCARDIA POSSIBLE LEFT ATRIAL ENLARGEMENT BORDERLINE ECG ECHO: CONCLUSIONS: - Technically difficult exam due to body habitus. - Exam indication: Pre-op - mitral stenosis - The left ventricle is normal in size. There is mild concentric left ventricular hypertrophy. Left ventricular systolic function is hyperdynamic. EF = 77 ? 5% (2D biplane) Definity contrast used for endocardial border detection. - The right ventricle is normal in size. Right ventricular systolic function is normal. - The left atrial cavity is dilated. - The right atrial cavity is dilated. - There is severe mitral stenosis caused by restricted opening and calcification - ?annular. The peak gradient is 25 mmHg and the mean gradient is 9 mmHg. Severe mitral annular calcification with extension into the subvalvular apparatus. Transvalvular gradients obtained at 56 bpm. MVA by pressure half-time ~ 1.3 cm2. - Estimated right ventricular systolic pressure is 49 mmHg consistent with mild pulmonary hypertension. Estimated right atrial pressure is 5 mmHg. - The patient has not had a prior CC echocardiographic exam for comparison. HEART CATHETERIZATION: Moderate to severe pulmonary hypertension. Pulmonary vascular resistance: 1.95 HRU. Total pulmonary resistance index: 15.07 HRUI. Pulmonary artery systolic pressure: 60 mm(hg). Pulmonary artery diastolic pressure: 22 mm(hg). Pulmonary artery mean pressure: 36 mm(hg). Pulmonary wedge a-wave: 38 mm(hg). Pulmonary wedge v-wave: 55 mm(hg). Pulmonary wedge mean pressure: 33 mm(hg). High pulmonary wedge pressure. Right Atrium Mean Pressure: 10 mm(hg). Elinor cardiac output: 4.03 liters/minutes. Elinor cardiac index: 2.09 (liters/minutes)/BSA. Consistent with cardiogenic shock. Cardiac output: 5.68. Cardiac index: 2.94. Normal. DEVICES: none MEDICATIONS: Current Outpatient Prescriptions: iv contrast (will be provided with radiology test) CT Chest W -Inject, intravenously, once for 1 dose.No IV access, insert saline lock prior to the beginning of sedation, infusion, injection of imaging exam. Discontinue saline lock post exam. If Pt. has a central line or IVAD, may access for administration according to line specific nursing protocol. Once exam is complete flush line and de-access according to line specific nursing protocol in the CT contrast administration guidelines link. VENTOLIN HFA 90 mcg/actuation inhaler Inhale 2 Puffs as instructed. ferrous sulfate 325 mg (65 mg iron) tablet Take 1 tablet by mouth twice daily. TAKE WITH FOOD. furosemide (LASIX) 40 mg tablet Take 40 mg by mouth twice daily. glipiZIDE (GLUCOTROL XL) 10mg 24 hr tablet Take 10 mg by mouth twice daily. lisinopril (ZESTRIL, PRINIVIL) 20 mg tablet Take 20 mg by mouth daily at bedtime. metoprolol tartrate, short acting, (LOPRESSOR) 50 mg tablet Take 50 mg by mouth once daily. Taking 25 mg in am AND 50 mg @ night montelukast (SINGULAIR) 10 mg tablet Take 10 mg by mouth once daily. KLOR-CON M20 20 mEq tablet Take 20 mEq by mouth once daily. simvastatin (ZOCOR) 20 mg tablet Take 20 mg by mouth daily at bedtime. traMADol (ULTRAM) 50 mg tablet Take 50 mg by mouth three times daily. traZODone (DESYREL) 50 mg tablet Take 50 mg by mouth daily at bedtime. BASAGLAR KWIKPEN U-100 INSULIN 100 unit/mL (3 mL) inpn INJECT 80 UNITS SUB-Q (UNDER THE SKIN) ONCE DAILY aspirin, enteric coated (ASPIRIN, ENTERIC COATED) 81 mg EC tablet Take 81 mg by mouth once daily. No current facility-administered medications for this visit. Is the patient currently on any anticoagulant medications: Yes: Anticoagulant medications the patient is currently on: Aspirin: Last dose: 3 days ago This was adequately stopped before surgery: Yes PAIN AND ANXIETY EDUCATION AND MANAGEMENT: Patient has no concerns to address at this time. Additional Comments: none I have reviewed the Cardiothoracic Surgical Assessment and agree with its findings. During the course of the encounter the patient was prepared for anesthetic care. This conversation included anesthetic options, possible use of invasive monitoring, the risks, benefits, alternatives, and personnel that will be present for the anesthetic encounter. The patient agreed to proceed with the planned anesthetic. Instructed to take metoprolol with a small sip of water on the morning of surgery. BETA RORY COMPLIANCE: Is the Patient Scheduled for a CABG: No SIGNATURE: Guillermina Guzmán MD PATIENT NAME: Dedra Lara DATE: February 07, 2018 TIME: 1:08 PM PAGER/CONTACT #: Referring Provider: MARK HOLLINS [[id number]] Allergies As of Date: 02/07/2018 Noted Allergy Reaction CEPHALEXIN 11/05/2017 6 - Diarrhea DOXYCYCLINE 2 - Rash HYDROCODONE BITARTRATE 11/05/2017 12 - Shortness of Breath INDOMETHACIN 11/05/2017 6 - Diarrhea KETOPROFEN 11/05/2017 6 - Diarrhea METFORMIN 11/05/2017 6 - Diarrhea NITROFURANTOIN 11/05/2017 12 - Shortness of Breath PENICILLINS 11/05/2017 4 - Hives PERCOCET (OXYCODONE-ACETAMINOPHEN)11/06/2017 2 - Rash SULFA (SULFONAMIDE ANTIBIOTICS) 11/05/2017 14 - Other: See Comments Comments: Sore tongue TIOTROPIUM 11/05/2017 12 - Shortness of Breath Date Reviewed: 02/07/2018 Reviewed by: Padmini ([facility]) Jose - Fully Assessed Primary Visit Diagnosis:Encounter for preoperative anesthesiology assessment for cardiac surgery [Z01.818] Prescriptions as of 02/07/2018 Sig: IV CONTRAST (RADIOLOGY PROCED* CT Chest W -Inject, intraveno* VENTOLIN HFA 90 MCG/ACTUATION* Inhale 2 Puffs as instructed. FERROUS SULFATE 325 MG (65 MG* Take 1 tablet by mouth twice * FUROSEMIDE 40 MG TABLET Take 40 mg by mouth twice didi* GLIPIZIDE ER 10 MG TABLET, EX* Take 10 mg by mouth twice didi* METOPROLOL TARTRATE 50 MG TAB* Take 50 mg by mouth twice didi* MONTELUKAST 10 MG TABLET Take 10 mg by mouth once william* KLOR-CON M20 MEQ TABLET,EXTEN* Take 20 mEq by mouth once didi* SIMVASTATIN 20 MG TABLET Take 20 mg by mouth daily at * TRAMADOL 50 MG TABLET Take 50 mg by mouth three juan antonio* TRAZODONE 50 MG TABLET Take 50 mg by mouth daily at * ORALIAOPALKIZZY HANSONPEN U-100 INSULI* INJECT 80 UNITS SUB-Q (UNDER * ASPIRIN 81 MG TABLET,DELAYED * Take 81 mg by mouth once william* Medication notes this encounter LISINOPRIL 20 MG TABLET >> Mari Limon MD 02/07/2018 5:48 PM discontinued by her legal billing analyst Problem List As Of Date 02/07/2018 Noted Resolved Multiple thyroid nodules [E04.2] INVALID FOR* Discharge planning issues [Z02.9] INVALID FOR* More... Iron deficiency anemia [D50.9] INVALID FOR* Benign essential hypertension [I10] INVALID FOR* Hyperlipidemia [E78.5] INVALID FOR* Obstructive sleep apnea [G47.33] INVALID FOR* History of tobacco use [Z87.891] INVALID FOR* Non-rheumatic mitral valve stenosis [I34.2] INVALID FOR* Type 2 diabetes mellitus (HCC) [E11.9] INVALID FOR* Personal history of transient ischemic attack (*INVALID FOR* Preop testing [Z01.818] INVALID FOR* More... Thyroid nodule [E04.1] INVALID FOR* Medications Discontinued During This Encounter lisinopril (ZESTRIL, PRINIVIL) 20 mg* 5 10/28/2017 02/07/2018 Class: Historical Med Route: ORAL Sig: Take 20 mg by mouth daily at bedtime. Disc: Reason for discontinue is not on file. Encounter Status:Closed by MARI LIMON MD on 02/07/18 Chart Close Cosign Required by: Nathaly Guerrero[] CNOV Observed: 02/07/2018 Status: COMPLETED Source: [place] 2:00 PM [facility] REPOSITORY Office Visit (CARTMN) DEDRA LARA ([id number]) 1945 F Date Time Provider Department 02/07/18 2:[address] [facility] CARTMN During your visit today, we recorded the following information about you: Temperature Pulse Respiration Blood pressure 97.8 degrees 68/minute 18/minute 130/52 Weight Height 93 kg 1.571 m Padmini WintersCAPRI 02/07/2018 6:21 PM Signed CONSULT HISTORY and PHYSICAL CARDIOTHORACIC SURGERY Consulting Service: Cardiothoracic Surgery Requesting Provider: [facility] Purchase Request Editor, Boone Perry MD on 12/25/17. Opinion/advice regarding: Pre-Op Open Heart Surgery Cardiothoracic Physician: Bigg Lim M.D. NAME: Dedra Lara HEIGHT: 157.1 cm WEIGHT: 93 kg Intended Procedure: Sternotomy, open placement of Miles Valve REDO: No STS SCORE: n/a Has this patient been previously evaluated for Open Heart Surgery for this condition? Yes, but refered to [facility] for surgical managment HPI: (4) This is a 72 year old female who presents in consultation for an opinion regarding treatment options for mitral stenosis and MAC. She was evaluated by Dr. Perry on 12/25/17 after being referred by Dr. Hollins for surgical evaluation for mitral stenosis. The patient states she was diagnosed with mitral stenosis in 2015 and has been followed since that time by a kraft digester operator in [place]. She was initially referred for possible mitral balloon valvuloplasty, but was not considered and optimal candidate due to the amount of mitral annular calcification. She is now referred to Dr. Lim for open sternotomy and mitral valve replacement. The patient's largest complaint is fatigue. Specifically she states she ' is so friggin' tired. She has not been sleeping well and has been finding it hard to keep up with ADL's at home. She states that her breathing is OK, and does not experience much exertional dyspnea. She states that she follows with her local corporation secretary for LADI (uses bipap nightly) and Asthma, but notes that her corporation secretary recently noted to her that he feels that she does not have asthma and that her breathing issues are more cardiac related and therefore recently stopped her Symbicort. She denies chest pain, palpitations, lightheadedness/dizziness and syncope when asked. 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 Comorbidities include Hyperlipidemia, CKD, H/O NSTEMI, LADI (on BiPap) PAST MEDICAL HISTORY: PAST MEDICAL HISTORY Diagnosis Date - CAD (coronary artery disease) - Diabetes mellitus, type II (HCC) - Edema extremities - History of tobacco use - HLD (hyperlipidemia) - HTN (hypertension) - Morbid obesity with BMI of 40.0-44.9, adult ([facility]) - Nonrheumatic mitral (valve) stenosis - NSTEMI (non-ST elevated myocardial infarction) ([facility]) - LADI (obstructive sleep apnea) - Pleural effusion - Pulmonary HTN ([facility]) - TIA (transient ischemic attack) PAST SURGICAL HISTORY: PAST SURGICAL HISTORY Procedure Laterality Date - CARPAL TUNNEL - CHOLECYSTECTOMY - ECHOCARDIOGRAM 09/17/2017 at [facility] - LEFT HEART CATH 06/25/2017 at [facility] - SHOULDER ARTHROSCOPY/SURG - TONSILLECTOMY AND ADENOIDECTOMY HX FAMILY HISTORY: FAMILY HISTORY Problem Relation Age of Onset - Diabetes Mother - Heart Father CAD - Diabetes Father - Hypertension Father FAMILY HISTORY OF CAD: Yes SOCIAL HISTORY: Social History Substance Use Topics - Smoking status: Former Smoker Types: Cigarettes Quit date: 11/07/2003 - Smokeless tobacco: Never Used - Alcohol use Yes Comment: holidays / special occasions only SOCIAL HISTORY OF IVDU: No SOCIAL HISTORY OF Smoking: Yes SOCIAL HISTORY OF Alcohol Dependency: No MEDICATIONS: Prior to Admission Medications: ferrous sulfate 325 mg (65 mg iron) tablet Take 1 tablet by mouth twice daily. TAKE WITH FOOD. furosemide (LASIX) 40 mg tablet Take 40 mg by mouth twice daily. glipiZIDE (GLUCOTROL XL) 10mg 24 hr tablet Take 10 mg by mouth twice daily. metoprolol tartrate, short acting, (LOPRESSOR) 50 mg tablet Take 50 mg by mouth twice daily. Taking 25 mg in am AND 50 mg @ night montelukast (SINGULAIR) 10 mg tablet Take 10 mg by mouth once daily. KLOR-CON M20 20 mEq tablet Take 20 mEq by mouth once daily. simvastatin (ZOCOR) 20 mg tablet Take 20 mg by mouth daily at bedtime. traZODone (DESYREL) 50 mg tablet Take 50 mg by mouth daily at bedtime. ORALIACLIFTON KENNEDY U-100 INSULIN 100 unit/mL (3 mL) inpn INJECT 80 UNITS SUB-Q (UNDER THE SKIN) ONCE DAILY aspirin, enteric coated (ASPIRIN, ENTERIC COATED) 81 mg EC tablet Take 81 mg by mouth once daily. mupirocin (BACTROBAN) 2 % ointment Apply twice the day before surgery, and once in the morning before surgery. ciprofloxacin HCl (CIPRO) 250 mg tablet Take 1 tablet by mouth twice daily for 3 days. VENTOLIN HFA 90 mcg/actuation inhaler Inhale 2 Puffs as instructed. traMADol (ULTRAM) 50 mg tablet Take 50 mg by mouth three times daily. ALLERGIES: ALLERGIES Allergen Reactions - Cephalexin Diarrhea - Doxycycline Rash - Hydrocodone Bitartr* Shortness of Breath - Indomethacin Diarrhea - Ketoprofen Diarrhea - Metformin Diarrhea - Nitrofurantoin Shortness of Breath - Penicillins Hives - Percocet [Oxycodone* Rash - Sulfa (Sulfonamide * Other: See Comments Sore tongue - Tiotropium Shortness of Breath COMPLETE REVIEW OF SYSTEMS: (10) Constitutional: No weight loss, malaise or fevers/chills. HEENT: Negative for frequent or significant headaches, No changes in hearing or vision, no nose bleeds or other nasal problems, Negative for difficulty swallowing Resp: Negative for cough, wheezing, or shortness of breath. Positive for LADI (uses Bipap) Cardiovascular: Negative for chest pain, leg swelling or palpitations, Negative for orthopnea and paroxysmal nocturnal dyspnea and Vascular: Denies GI: Negative for abdominal discomfort, blood in stools or black stools or change in bowel habits, Negative for diarrhea and heart burn and Positive for constipation (on iron) : No history of dysuria, frequency, or incontinence and No difficulty urination, nocturia >1 times per night or hematuria Endo: Negative for polyuria, polydipsia and goiter and Positive for cold intolerance and DM (on insulin and oral agents). Positive for thyroid nodules. Heme/Lymph: Negative for prolonged bleeding, bruising easily or swollen nodes Neurologic: No history or headaches, syncope, CVA, paralysis, seizures or tremors Integumentary: Negative for lesions, rash, and itching. Additional systems reviewed: Pain: Negative for pain, history of chronic pain, or current treatment for a chronic pain condition and Musculoskeletal: Negative for joint pain or swelling and back pain and Positive for muscle pain (bilateral arms and legs) PHYSICAL EXAM: (8) BP 130/52 (BP Site: Left Arm, BP Position: Sitting) Pulse 68 Temp 36.6 ?C (97.8 ?F) (Oral) Resp 18 Ht 154.9 cm (5' 1) SpO2 96% BMI 40.06 kg/m? Right Handed Constitutional: Well developed, Well nourished , Overweight and No acute distress HEENT: PERRL and EOM's intact. + full top denture, and partial lower denture noted. Resp: Clear and Respiratory effort: normal Cardiovascular: Regular rate AND rhythm, distant heart sounds, + soft diastolic murmur at the apex Vascular: Pulses - Grade 2/4 distal bilateral pulses, trace BLE edema and no varicosities GI: Soft, Non-tender, Bowel sounds present and Non-distended Integumentary: Warm, Dry and No rash on chest, arms or legs Musculoskeletal: No joint deformities Neurological/Psychiatric: Oriented to time, place AND person , Alert, Steady gait and No gross focal neurologic deficits Additional systems reviewed: No additional systems reviewed Labs: Recent Labs 02/07/18 0935 WBC 6.12 HB 11.6 HCT 33.9* PLT 164 Recent Labs 02/07/18 0935 INR 1.1 APTT 25.9 Recent Labs 02/07/18 0935 NA 139 K 5.0 CHLOR 100 CO2 27 BUN 47* CREAT 2.12* GLUC 118* ALKPHOS 89 ALT 16 AST 25 ALB 3.7* ABO/RH(D) Date Value Ref Range Status 02/07/2018 B NEGATIVE Final Antibody Screen Date Value Ref Range Status 02/07/2018 NEG Final Hemoglobin A1C (%) Date Value 02/07/2018 6.5 DATA: I have personally reviewed the following data: R AND L Cardiac Catheterization: (outside) images In [facility] TTE: 02/07 CXR: 12/25 U/S Thyroid: 02/07 CT Chest: 12/25 Antler's: 02/07 Dental clearance Cleared - See Scanned Document EK/17 Impression: This is a 72 year old year-old female, who is being evaluated for surgical intervention of mitral stenosis. In consideration for surgery, the patient's acute and chronic medical issues have been evaluated as documented above and reviewed in the electronic medical record. Plan: Patient will be seen today by the surgeon, Dr. Bigg Lim M.D.. If the patient is a surgical candidate according to criteria met, then advise the following: ? Bactroban, prescriptions and instructions given. ? Anticoagulation instructions: Patient instructed to stop Baby ASA and OTC 5 days before surgery (last dose to be on 02/21/18). ? Screening UA Positive. Patient give presciption for Cipro (250 mg BID x 3 days based on renal dosing) ? Pre Op Instructions per protocol reviewed and handout given to patient . ? Patient Education completed and documented. ? Emotional support provided to patient and family. All questions and concerns adressed. Advanced directives are complete. Patient instructed to have document scanned at J1-1 admitting interview. Anticipated Discharge Needs: PT/OT/RT evalulation for anticipated Home Care needs These findings will be communicated back to the requesting provider electronically. SIGNATURE: Padmini Winters APRN.[facility] PAGER: [phone] Date of Service: 02/07/2018 Time of Service: 4:22 PM Referring Provider: MARK HOLLINS [[id number]] Allergies As of Date: 02/07/2018 Noted Allergy Reaction CEPHALEXIN 11/05/2017 6 - Diarrhea DOXYCYCLINE 2 - Rash HYDROCODONE BITARTRATE 11/05/2017 12 - Shortness of Breath INDOMETHACIN 11/05/2017 6 - Diarrhea KETOPROFEN 11/05/2017 6 - Diarrhea METFORMIN 11/05/2017 6 - Diarrhea NITROFURANTOIN 11/05/2017 12 - Shortness of Breath PENICILLINS 11/05/2017 4 - Hives PERCOCET (OXYCODONE-ACETAMINOPHEN)11/06/2017 2 - Rash SULFA (SULFONAMIDE ANTIBIOTICS) 11/05/2017 14 - Other: See Comments Comments: Sore tongue TIOTROPIUM 11/05/2017 12 - Shortness of Breath Date Reviewed: 02/07/2018 Reviewed by: Padmini (Vending Machine Assembler) Jose - Fully Assessed Primary Visit Diagnosis:Non-rheumatic mitral valve stenosis [I34.2] Other Visit Diagnoses:Thyroid nodule [E04.1] Obstructive sleep apnea [G47.33] Order(s):mupirocin (BACTROBAN) 2 % ointmentApply twice the day before surgery, and once in the morning before surgery.Disp: 1 TubeRfl: 0 ciprofloxacin HCl (CIPRO) 250 mg tabletTake 1 tablet by mouth twice daily for 3 days.Disp: 6 tabletRfl: 0 TSH BLD [SQTS] Order #: [id number] FUTURE Prescriptions as of 02/07/2018 Sig: FERROUS SULFATE 325 MG (65 MG* Take 1 tablet by mouth twice * FUROSEMIDE 40 MG TABLET Take 40 mg by mouth twice didi* GLIPIZIDE ER 10 MG TABLET, EX* Take 10 mg by mouth twice didi* METOPROLOL TARTRATE 50 MG TAB* Take 50 mg by mouth twice didi* MONTELUKAST 10 MG TABLET Take 10 mg by mouth once william* KLOR-CON M20 MEQ TABLET,EXTEN* Take 20 mEq by mouth once didi* SIMVASTATIN 20 MG TABLET Take 20 mg by mouth daily at * TRAZODONE 50 MG TABLET Take 50 mg by mouth daily at * BASAGLAR KWIKPEN U-100 INSULI* INJECT 80 UNITS SUB-Q (UNDER * ASPIRIN 81 MG TABLET,DELAYED * Take 81 mg by mouth once william* MUPIROCIN 2 % TOPICAL OINTMENT Apply twice the day before france* CIPROFLOXACIN 250 MG TABLET Take 1 tablet by mouth twice * IV CONTRAST (RADIOLOGY PROCED* CT Chest W -Inject, intraveno* VENTOLIN HFA 90 MCG/ACTUATION* Inhale 2 Puffs as instructed. TRAMADOL 50 MG TABLET Take 50 mg by mouth three juan antonio* X LISINOPRIL 20 MG TABLET Take 20 mg by mouth daily at * Medication notes this encounter KLOR-CON M20 MEQ TABLET,EXTENDED RELEASE >> Padmini Winters APRN.CNP 02/07/2018 4:36 PM >> PADMINI WINTERS CNP SatFeb 07, 2018 4:36 PM Currently on 10 mEq per day BASAGLAR KWIKPEN U-100 INSULIN 100 UNIT/ML (3 ML) SUBCUTANEOUS >> Padmini Winters APRN.CNP 02/07/2018 4:35 PM >> PADMINI WINTERS CNP SatFeb 07, 2018 4:35 PM Currently on 70 units per day TRAMADOL 50 MG TABLET >> Padmini Winters APRN.CNP 02/07/2018 4:37 PM >> PADMINI WINTERS CNP SatFeb 07, 2018 4:37 PM Currently taking once daily Problem List As Of Date 02/07/2018 Noted Resolved Multiple thyroid nodules [E04.2] INVALID FOR* Discharge planning issues [Z02.9] INVALID FOR* More... Iron deficiency anemia [D50.9] INVALID FOR* Benign essential hypertension [I10] INVALID FOR* Hyperlipidemia [E78.5] INVALID FOR* Obstructive sleep apnea [G47.33] INVALID FOR* History of tobacco use [Z87.891] INVALID FOR* Non-rheumatic mitral valve stenosis [I34.2] INVALID FOR* Type 2 diabetes mellitus, with long-term curren*INVALID FOR* Personal history of transient ischemic attack (*INVALID FOR* Preop testing [Z01.818] INVALID FOR* More... Thyroid nodule [E04.1] INVALID FOR* Prescriptions ordered this encounter Disp Refills Start End MUPIROCIN 2 % TOPICAL OINTMENT 1 Tu* 0 02/07/2018 Class: Print RX Sig: Apply twice the day before surgery, and once in the morning before surgery. CIPROFLOXACIN 250 MG TABLET 6 ta* 0 02/07/2018 02/10/2018 Class: Print RX Route: ORAL Sig: Take 1 tablet by mouth twice daily for 3 days. Encounter Status:Closed by PADMINI WINTERS CNP on 02/07/18 PROGRESS Observed: 02/07/2018 Status: COMPLETED Source: [place] 1:08 PM [facility] REPOSITORY [facility] ID: [id number] Author: Mari Limon Service: (none) Author Type: Resident Type: Progress Notes Filed: 02/07/2018 6:19 PM Note Text: [facility] PREOP EVALUATION CARDIOTHORACIC ANESTHESIA CARDIAC SURGERY SERVICE DATE: 02/07/2018 SERVICE TIME: 1:08 PM Proposed Surgical Procedure: Mitral Valve Surgery Re-do: No ASA Class: 4 Surgeon: Carina Surgery Date: 02/26/18 Last Wt 12/31/17 : 96.2 kg (212 lb) Last Ht 12/31/17 : 154.9 cm (5' 1) Estimated body mass index is 40.06 kg/m? as calculated from the following: Height as of 12/31/17: 154.9 cm (5' 1). Weight as of 12/31/17: 96.2 kg (212 lb). Estimated body surface area is 2.03 meters squared as calculated from the following: Height as of 12/31/17: 154.9 cm (5' 1). Weight as of 12/31/17: 96.2 kg (212 lb). 72 year old with DM, HTN, HLD, CAD, Morbid obesity, LADI, Pulm HTN, CKD and MS now scheduled for an MVR. Reports she has never had a TIA, has seen a neurologist and was actually diagnosed with silent migraines. Reports she can walk a flight of stairs without shortness of breath. When she becomes tired it is frequently secondary to her knees/orthopedic concerns. Reports feeling tired making her stop but she denies any chest pain. Had more shortness of breath prior to having her lasix dose increased (09/2017) and having her thoracentesis also in September 2017 (-2L). PAST MEDICAL HISTORY Diagnosis Date - CAD (coronary artery disease) - Diabetes mellitus, type II (HCC) - Edema extremities - History of tobacco use - HLD (hyperlipidemia) - HTN (hypertension) - Morbid obesity with BMI of 40.0-44.9, adult ([facility]) - Nonrheumatic mitral (valve) stenosis - NSTEMI (non-ST elevated myocardial infarction) ([facility]) - LADI (obstructive sleep apnea) - Pleural effusion - Pulmonary HTN ([facility]) - TIA (transient ischemic attack) PAST SURGICAL HISTORY Procedure Laterality Date - CARPAL TUNNEL - CHOLECYSTECTOMY - ECHOCARDIOGRAM 09/17/2017 at [facility] - LEFT HEART CATH 06/25/2017 at [facility] - SHOULDER ARTHROSCOPY/SURG - TONSILLECTOMY AND ADENOIDECTOMY HX FAMILY HISTORY Problem Relation Age of Onset - Diabetes Mother - Heart Father CAD - Diabetes Father - Hypertension Father Social History Substance Use Topics - Smoking status: Former Smoker Types: Cigarettes Quit date: 11/07/2003 - Smokeless tobacco: Never Used - Alcohol use Yes Comment: holidays / special occasions only ALLERGIES Allergen Reactions - Cephalexin Diarrhea - Doxycycline Rash - Hydrocodone Bitartr* Shortness of Breath - Indomethacin Diarrhea - Ketoprofen Diarrhea - Metformin Diarrhea - Nitrofurantoin Shortness of Breath - Penicillins Hives - Percocet [Oxycodone* Rash - Sulfa (Sulfonamide * Other: See Comments Sore tongue - Tiotropium Shortness of Breath REVIEW OF SYSTEMS: Neuro: Patient denies stroke, seizure, TIA's . Respiratory: ?History of asthma. No history of current cough or dyspnea, or pneumonia in the past 6 weeks. No history of respiratory/pulmonary symptoms or problems Cardiovascular: See HPI GI: No history of GI symptoms or problems. No history of esophageal varices, recent ascites, or ETOH greater than 2 drinks per day. Endocrine: diabetes on insulin, multiple thyroid nodules. Denies recent steroids. Hematology: Chronic anti-coagulation / platelet meds (Aspirin) CKD AND ANEMIA ASSESSMENT: Patient has both eGFR < 60 mL/min and a Hemoglobin < 11 g/dl: No if the patient is going on CPB. ANESTHETIC HISTORY: History of general anesthesia without complications. AIRWAY ASSESSMENT: Full upper plate, lower partial. Airway History: No abnormal airway history Airway Exam: General: Morbid obesity. Thick neck. Mallampati Score: CLASS III Temporo-Mandibular Displacement Test: Position A (lower teeth can be advanced beyond upper teeth) Interincisor Distance: 4 cm Thyromental Distance: 6 cm Neck Circumference: 45 cm Overbite: No Cervical Mobility: Normal Facial Hair: No Head/Neck Pathology: No ANTICIPATED DIFFICULT AIRWAY: NO Patient has sleep apnea and will bring her own BiPAP machine. PHYSICAL EXAM: VITALS: There were no vitals taken for this visit. CARDIAC: Regular rate and rhythm. Diastolic murmur. LUNGS: Lungs clear to auscultation. Good air entry bilaterally. Lines, Drains, Airway: Patient has no lines, drains or airway LABS: Lab Results Past 6 Months Component Value Date HB 11.6 02/07/2018 HCT 33.9 (L) 02/07/2018 PLT 164 02/07/2018 WBC 6.12 02/07/2018 NA 139 02/07/2018 K 5.0 02/07/2018 CREAT 2.12 (H) 02/07/2018 CA 9.8 02/07/2018 APTT 25.9 02/07/2018 INR 1.1 02/07/2018 Lab Results Past 6 Months Component Value Date GLUC 118 (H) 02/07/2018 K 5.0 02/07/2018 NA 139 02/07/2018 CHLOR 100 02/07/2018 CO2 27 02/07/2018 CREAT 2.12 (H) 02/07/2018 BUN 47 (H) 02/07/2018 ANION 12 02/07/2018 CA 9.8 02/07/2018 TPROT 7.5 02/07/2018 ALB 3.7 (L) 02/07/2018 TBILI 0.5 02/07/2018 ALKPHOS 89 02/07/2018 AST 25 02/07/2018 ALT 16 02/07/2018 ABO/RH(D) (no units) Date Value 12/25/2017 B NEGATIVE Antibody Screen (no units) Date Value 12/25/2017 NEG Historical Ab Scr Status (no units) Date Value 02/07/2018 NEGATIVE Anticipated Blood Products Ordered: No blood product orders needed. Will the Patient Accept Blood: Yes IMAGING AND TESTS: CT SCAN: IMPRESSION: 1. The thoracic aorta is normal in course and caliber, with moderate calcific atherosclerotic changes of the aortic arch and descending aortic segment. 2. Extensive mitral valve annular calcifications, with extension into the left ventricular inferoseptal myocardium. 3. Severe coronary calcifications. 4. Multiple bilateral thyroid nodules are noted, largest measuring 1.8 cm on the right and 2.1 cm on the left, with the latter having wall calcifications. ?Correlation with thyroid ultrasound is recommended. 5. A 1.6 cm asymmetric opacity is seen in the right lower breast (image #[id number]). ?Correlation with mammography is recommended. 6. Multiple incidental pulmonary nodules as described in the body of the report. Incidental Finding: ?Follow-up for these incidentally detected lung nodules with chest CT exam is recommended in 3-6 months. If stable on follow-up imaging, a repeat chest CT exam in 12 months (15-18 months from the initial exam) is recommended. 7. Nodular appearance of the visualized liver surface suggestive of cirrhosis. Consider liver ultrasound. 8. Moderate right pleural effusion with adjacent atelectasis. ECG: Diagnosis:SINUS BRADYCARDIA POSSIBLE LEFT ATRIAL ENLARGEMENT BORDERLINE ECG ECHO: CONCLUSIONS: - Technically difficult exam due to body habitus. - Exam indication: Pre-op - mitral stenosis - The left ventricle is normal in size. There is mild concentric left ventricular hypertrophy. Left ventricular systolic function is hyperdynamic. EF = 77 ? 5% (2D biplane) Definity contrast used for endocardial border detection. - The right ventricle is normal in size. Right ventricular systolic function is normal. - The left atrial cavity is dilated. - The right atrial cavity is dilated. - There is severe mitral stenosis caused by restricted opening and calcification - ?annular. The peak gradient is 25 mmHg and the mean gradient is 9 mmHg. Severe mitral annular calcification with extension into the subvalvular apparatus. Transvalvular gradients obtained at 56 bpm. MVA by pressure half-time ~ 1.3 cm2. - Estimated right ventricular systolic pressure is 49 mmHg consistent with mild pulmonary hypertension. Estimated right atrial pressure is 5 mmHg. - The patient has not had a prior CC echocardiographic exam for comparison. HEART CATHETERIZATION: Moderate to severe pulmonary hypertension. Pulmonary vascular resistance: 1.95 HRU. Total pulmonary resistance index: 15.07 HRUI. Pulmonary artery systolic pressure: 60 mm(hg). Pulmonary artery diastolic pressure: 22 mm(hg). Pulmonary artery mean pressure: 36 mm(hg). Pulmonary wedge a-wave: 38 mm(hg). Pulmonary wedge v-wave: 55 mm(hg). Pulmonary wedge mean pressure: 33 mm(hg). High pulmonary wedge pressure. Right Atrium Mean Pressure: 10 mm(hg). Elinor cardiac output: 4.03 liters/minutes. Elinor cardiac index: 2.09 (liters/minutes)/BSA. Consistent with cardiogenic shock. Cardiac output: 5.68. Cardiac index: 2.94. Normal. DEVICES: none MEDICATIONS: Current Outpatient Prescriptions: iv contrast (will be provided with radiology test) CT Chest W -Inject, intravenously, once for 1 dose.No IV access, insert saline lock prior to the beginning of sedation, infusion, injection of imaging exam. Discontinue saline lock post exam. If Pt. has a central line or IVAD, may access for administration according to line specific nursing protocol. Once exam is complete flush line and de-access according to line specific nursing protocol in the CT contrast administration guidelines link. VENTOLIN HFA 90 mcg/actuation inhaler Inhale 2 Puffs as instructed. ferrous sulfate 325 mg (65 mg iron) tablet Take 1 tablet by mouth twice daily. TAKE WITH FOOD. furosemide (LASIX) 40 mg tablet Take 40 mg by mouth twice daily. glipiZIDE (GLUCOTROL XL) 10mg 24 hr tablet Take 10 mg by mouth twice daily. lisinopril (ZESTRIL, PRINIVIL) 20 mg tablet Take 20 mg by mouth daily at bedtime. metoprolol tartrate, short acting, (LOPRESSOR) 50 mg tablet Take 50 mg by mouth once daily. Taking 25 mg in am AND 50 mg @ night montelukast (SINGULAIR) 10 mg tablet Take 10 mg by mouth once daily. KLOR-CON M20 20 mEq tablet Take 20 mEq by mouth once daily. simvastatin (ZOCOR) 20 mg tablet Take 20 mg by mouth daily at bedtime. traMADol (ULTRAM) 50 mg tablet Take 50 mg by mouth three times daily. traZODone (DESYREL) 50 mg tablet Take 50 mg by mouth daily at bedtime. BASAGLAR KWIKPEN U-100 INSULIN 100 unit/mL (3 mL) inpn INJECT 80 UNITS SUB-Q (UNDER THE SKIN) ONCE DAILY aspirin, enteric coated (ASPIRIN, ENTERIC COATED) 81 mg EC tablet Take 81 mg by mouth once daily. No current facility-administered medications for this visit. Is the patient currently on any anticoagulant medications: Yes: Anticoagulant medications the patient is currently on: Aspirin: Last dose: 3 days ago This was adequately stopped before surgery: Yes PAIN AND ANXIETY EDUCATION AND MANAGEMENT: Patient has no concerns to address at this time. Additional Comments: none I have reviewed the Cardiothoracic Surgical Assessment and agree with its findings. During the course of the encounter the patient was prepared for anesthetic care. This conversation included anesthetic options, possible use of invasive monitoring, the risks, benefits, alternatives, and personnel that will be present for the anesthetic encounter. The patient agreed to proceed with the planned anesthetic. Instructed to take metoprolol with a small sip of water on the morning of surgery. BETA RORY COMPLIANCE: Is the Patient Scheduled for a CABG: No SIGNATURE: Guillermina Guzmán MD PATIENT NAME: Dedra Lara DATE: February 07, 2018 TIME: 1:08 PM PAGER/CONTACT #: [phone] Observed: 02/07/2018 Status: COMPLETED Source: [place] 1:00 PM [facility] REPOSITORY Office Visit (TOMN) DEDRA LARA ([id number]) 1945 F Date Time Provider Department 02/07/18 1:00 PM [facility] During your visit today, we recorded the following information about you: Bigg Lim MD 02/08/2018 8:40 AM Signed Thoracic and Cardiovascular Surgery [facility] CARDIOTHORACIC CLINIC NOTE CHART COPY DO NOT DISCARD Patient Type: Established Visit to determine Surgery: Yes PCP: Guillermina Stanton MD ([facility] Early) [address] [place] [address] Referring Physician:: Mark Hollins MD [address] [facility] [address] Ms. Dedra Lara returns to clinic today for continued evaluation. She is a 72 year old female with severe mitral stenosis with extensive MAC. Dental clearance obtained. Cr 2.12. Dental clearance obtained. Impression: Severe mitral stenosis with extensive MAC Plan: We will proceed with combined case with Drs. Cano and Jacob: median sternotomy, open mitral valve replacment using Miles TAVR valve. Consent obtained. I spent more than 50% of the visit face to face counseling the patient on the plan and treatment options. The time spent counseling was 20 minutes. The total time of the face to face visit was 20 minutes. These findings will be communicated back to the requesting physician via mail. Bigg Lim MD Referring Provider: MARK HOLLINS [[id number]] Allergies As of Date: 02/07/2018 Noted Allergy Reaction CEPHALEXIN 11/05/2017 6 - Diarrhea DOXYCYCLINE 2 - Rash HYDROCODONE BITARTRATE 11/05/2017 12 - Shortness of Breath INDOMETHACIN 11/05/2017 6 - Diarrhea KETOPROFEN 11/05/2017 6 - Diarrhea METFORMIN 11/05/2017 6 - Diarrhea NITROFURANTOIN 11/05/2017 12 - Shortness of Breath PENICILLINS 11/05/2017 4 - Hives PERCOCET (OXYCODONE-ACETAMINOPHEN)11/06/2017 2 - Rash SULFA (SULFONAMIDE ANTIBIOTICS) 11/05/2017 14 - Other: See Comments Comments: Sore tongue TIOTROPIUM 11/05/2017 12 - Shortness of Breath Date Reviewed: 02/07/2018 Reviewed by: Padmini (Vending Machine Assembler) Jose - Fully Assessed Primary Visit Diagnosis:Non-rheumatic mitral valve stenosis [I34.2] Prescriptions as of 02/07/2018 Sig: IV CONTRAST (RADIOLOGY PROCED* CT Chest W -Inject, intraveno* VENTOLIN HFA 90 MCG/ACTUATION* Inhale 2 Puffs as instructed. FERROUS SULFATE 325 MG (65 MG* Take 1 tablet by mouth twice * FUROSEMIDE 40 MG TABLET Take 40 mg by mouth twice didi* GLIPIZIDE ER 10 MG TABLET, EX* Take 10 mg by mouth twice didi* METOPROLOL TARTRATE 50 MG TAB* Take 50 mg by mouth twice didi* MONTELUKAST 10 MG TABLET Take 10 mg by mouth once william* KLOR-CON M20 MEQ TABLET,EXTEN* Take 20 mEq by mouth once didi* SIMVASTATIN 20 MG TABLET Take 20 mg by mouth daily at * TRAMADOL 50 MG TABLET Take 50 mg by mouth three juan antonio* TRAZODONE 50 MG TABLET Take 50 mg by mouth daily at * BASAGLAR KWIKPEN U-100 INSULI* INJECT 80 UNITS SUB-Q (UNDER * ASPIRIN 81 MG TABLET,DELAYED * Take 81 mg by mouth once william* X LISINOPRIL 20 MG TABLET Take 20 mg by mouth daily at * Problem List As Of Date 02/07/2018 Noted Resolved Multiple thyroid nodules [E04.2] INVALID FOR* Discharge planning issues [Z02.9] INVALID FOR* More... Iron deficiency anemia [D50.9] INVALID FOR* Benign essential hypertension [I10] INVALID FOR* Hyperlipidemia [E78.5] INVALID FOR* Obstructive sleep apnea [G47.33] INVALID FOR* History of tobacco use [Z87.891] INVALID FOR* Non-rheumatic mitral valve stenosis [I34.2] INVALID FOR* Type 2 diabetes mellitus, with long-term curren*INVALID FOR* Personal history of transient ischemic attack (*INVALID FOR* Preop testing [Z01.818] INVALID FOR* More... Thyroid nodule [E04.1] INVALID FOR* Encounter Status:Closed by BIGG LIM MD on 02/08/18 PROGRESS Observed: 02/07/2018 Status: COMPLETED Source: [place] 11:43 AM [facility] REPOSITORY HNO ID: [id number] Author: Michael AlvaradoRn) LEONIDES Pitt Service: (none) Author Type: Registered Nurse Type: Progress Notes Filed: 02/07/2018 11:45 AM Note Text: 02/07/2018 11:44 AM IV Access: IV IV Site: left Forearm IV GAUGE 24 gauge IV Removal Date 02/07/18 Time 1141 Reactions: WNL Order reviewed by nurse:yes Medications: Definity - dosage 2 ml given slow IV Reaction: No CNOV Observed: 02/07/2018 Status: COMPLETED Source: [place] 11:00 AM [facility] REPOSITORY Office Visit (CAFLMN) DEDRA LARA ([id number]) 1945 F Date Time Provider Department 02/07/18 11:00 AM [facility] During your visit today, we recorded the following information about you: Michael Pitt RN, RN 02/07/2018 11:45 AM Signed 02/07/2018 11:44 AM IV Access: IV IV Site: left Forearm IV GAUGE 24 gauge IV Removal Date 02/07/18 Time 1141 Reactions: WNL Order reviewed by nurse:yes Medications: Definity - dosage 2 ml given slow IV Reaction: No Referring Provider: BIGG LIM [[id number]] Allergies As of Date: 02/07/2018 Noted Allergy Reaction CEPHALEXIN 11/05/2017 6 - Diarrhea DOXYCYCLINE 2 - Rash HYDROCODONE BITARTRATE 11/05/2017 12 - Shortness of Breath INDOMETHACIN 11/05/2017 6 - Diarrhea KETOPROFEN 11/05/2017 6 - Diarrhea METFORMIN 11/05/2017 6 - Diarrhea NITROFURANTOIN 11/05/2017 12 - Shortness of Breath PENICILLINS 11/05/2017 4 - Hives PERCOCET (OXYCODONE-ACETAMINOPHEN)11/06/2017 2 - Rash SULFA (SULFONAMIDE ANTIBIOTICS) 11/05/2017 14 - Other: See Comments Comments: Sore tongue TIOTROPIUM 11/05/2017 12 - Shortness of Breath Date Reviewed: 02/07/2018 Reviewed by: Michael (Rn) LEONIDES Pitt - Fully Assessed Reason for Visit: IV Medication Administration [149] Cmt: Echo with definity Primary Visit Diagnosis:Mitral valve stenosis, non-rheumatic [I34.2] Prescriptions as of 02/07/2018 Sig: IV CONTRAST (RADIOLOGY PROCED* CT Chest W -Inject, intraveno* VENTOLIN HFA 90 MCG/ACTUATION* Inhale 2 Puffs as instructed. FERROUS SULFATE 325 MG (65 MG* Take 1 tablet by mouth twice * FUROSEMIDE 40 MG TABLET Take 40 mg by mouth twice didi* GLIPIZIDE ER 10 MG TABLET, EX* Take 10 mg by mouth twice didi* LISINOPRIL 20 MG TABLET Take 20 mg by mouth daily at * METOPROLOL TARTRATE 50 MG TAB* Take 50 mg by mouth once william* MONTELUKAST 10 MG TABLET Take 10 mg by mouth once william* KLOR-CON M20 MEQ TABLET,EXTEN* Take 20 mEq by mouth once didi* SIMVASTATIN 20 MG TABLET Take 20 mg by mouth daily at * TRAMADOL 50 MG TABLET Take 50 mg by mouth three juan antonio* TRAZODONE 50 MG TABLET Take 50 mg by mouth daily at * BASAGLAR KWIKPEN U-100 INSULI* INJECT 80 UNITS SUB-Q (UNDER * ASPIRIN 81 MG TABLET,DELAYED * Take 81 mg by mouth once william* Problem List As Of Date 02/07/2018 Noted Resolved Multiple thyroid nodules [E04.2] INVALID FOR* Encounter Status:Closed by MICHAEL PITT on 02/07/18 URINALYSIS Collected: 02/07/2018 Status: F Source: [place] 10:13 AM [facility] REPOSITORY TYPE CODE TESTS RESULT OUT OF RANGE REFERENCE UNITS LAB UCOL Yellow Color Yellow LAB [facility] Clear Clarity Abnormal Cloudy Alert LAB UGLUC Negative mg/dL Glucose, Urine Negative LAB UBIL Negative Bilirubin, Urine Negative LAB UKET Negative Ketones, Urine Negative LAB USPG 1.005-1.030 Specific [place], Ur 1.013 LAB UHGB Negative Hemoglobin/Blood, Negative Ur LAB UPH 4.5-8.0 pH 5.0 LAB UPROT Negative mg/dL Protein, Urine Negative LAB UUROB Normal Urobilinogen Normal LAB UNITR Negative Nitrites Abnormal Positive Alert LAB ULKEST Negative Leukest Abnormal 2+ Alert LAB UCOM Comments SEE COMMENT Result Comment: Microscopic Examination Performed LAB UWBC 0-5 /HPF Abnormal Alert WBC >25 LAB URBC 0-3 /HPF RBC 0-3 LAB UCAST 0 /LPF Abnormal Alert Cast SEE COMMENT Result Comment: >10 Hyaline Cast LAB UEPI /HPF Epithelial SEE Cells COMMENT Result Comment: Few Squamous Epithelial Cells LAB UMCOM Urine SEE Alexsander Comment COMMENT Result Comment: N/A Performed By: #### UA #### [facility] [employer] [place]) [address], [place] [address] PROTIME Collected: 02/07/2018 Status: F Source: [place] 9:35 AM [facility] REPOSITORY TYPE CODE TESTS RESULT OUT OF RANGE REFERENCE UNITS LAB PSEC 9.7-13.0 sec PT Sec 11.6 LAB INR 0.9-1.3 PT INR 1.1 Result Comment: Vitamin K Antagonist (VKA) Therapeutic Range: INR 2 to 3 (Target INR of 2.5) Note: For patients treated with VKA drugs, such as warfarin, the [place] [employer] 2012 Guideline recommends a therapeutic INR range of 2 to 3 (target INR of 2.5). This recommendation includes high-risk patients with antiphospholipid syndrome with previous arterial or venous thromboembolism, current-generation mechanical or bioprosthetic aortic heart valve replacement. Note: Patients with mechanical aortic valve replacement and additional risk factors for thromboembolic events (atrial fibrillation, previous thromboembolism, LV dysfunction, hypercoagulable conditions) or an older generation mechanical AVR (i.e., ball in-Cage) or any mechanical MVR should have a INR therapeutic range of 2.5 to 3.5 (target INR of 3). Vu GARCIA, et al. Chest 2012, 141:7S-47S Roro RA, et al. [facility] 2017, 70: 252-289 Performed By: #### PT, PTT, CBCDIF, CMP, LD6, HBA1C #### [facility] [employer]) [address] [place], [place] [address] APTT Collected: 02/07/2018 Status: F Source: [place] 9:35 AM [facility] REPOSITORY TYPE CODE TESTS RESULT OUT OF RANGE REFERENCE UNITS LAB APTT 23.0-32.4 sec APTT 25.9 Result Comment: Unfractionated Heparin Therapeutic Ranges: Standard Heparin Nomogram: 53 to 78 seconds (anti-Xa level of 0.3 to 0.7 U/ml) Low Dose/ACS Nomogram: 49 to 67 seconds (anti-Xa level of 0.2 to 0.5 U/ml) Stroke Treatment Nomogram: 49 to 67 seconds (anti-Xa level of 0.2 to 0.5 U/ml) Note: The APTT therapeutic range has been determined for the current lot of laboratory APTT reagent in use throughout the [facility]. Performed By: #### PT, PTT, CBCDIF, CMP, LD6, HBA1C #### [facility] [address] [place], [place] [address] CBC AND DIFFERENTIAL Collected: 02/07/2018 Status: F Source: [place] 9:35 AM [facility] [place] REPOSITORY TYPE CODE TESTS RESULT OUT OF REFERENCE UNITS RANGE LAB WBC 3.70-11.00 k/uL WBC 6.12 LAB RBC 3.90-5.20 m/uL Low RBC 3.45 LAB HGB 11.5-15.5 g/dL Hemoglobin 11.6 LAB HCT 36.0-46.0 % Low Hematocrit 33.9 LAB MCV 80.0-100.0 fL MCV 98.3 LAB MCH 26.0-34.0 pG MCH 33.6 LAB MCHC 30.5-36.0 g/dL MCHC 34.2 LAB RDWCV 11.5-15.0 % RDW-CV 12.7 LAB PLTCT 150-400 k/uL Platelet Count 164 LAB MPV 9.0-12.7 fL MPV 9.4 LAB ANEUT % Neut% 55.6 LAB AANEUT 1.45-7.50 k/uL Abs Neut 3.39 LAB ALYMP % Lymph% 30.6 LAB AALYMP 1.00-4.00 k/uL Abs Lymph 1.87 LAB AMONO % Dixie% 10.0 LAB AAMONO <0.87 k/uL Abs Dixie 0.61 LAB AEOS % Eosin% 3.1 LAB AAEOS <0.46 k/uL Abs Eosin 0.19 LAB ABASO % Baso% 0.7 LAB AABASO <0.11 k/uL Abs Baso 0.04 LAB AUNRBC 0 /100 WBC NRBCs 0.0 LAB ABNRBC <0.01 k/uL Absolute nRBC <0.01 LAB DTYP DTYPE Auto Diff Performed By: #### PT, PTT, CBCDIF, CMP, LD6, HBA1C #### [facility] [address] [place], [place] [address] COMP METABOLIC PANEL Collected: 02/07/2018 Status: F Source: [place] 9:35 AM [facility] REPOSITORY TYPE CODE TESTS RESULT OUT OF REFERENCE UNITS RANGE LAB TP 6.3-8.0 g/dL Protein, Total 7.5 LAB ALB 3.9-4.9 g/dL Low Albumin 3.7 LAB CA 8.5-10.2 mg/dL Calcium, Total 9.8 LAB TBIL 0.2-1.3 mg/dL Bilirubin, Total 0.5 LAB ALKP 34-123 U/L Alkaline Phosphatase 89 LAB AST 13-35 U/L AST 25 LAB GLU 74-99 mg/dL Glucose High 118 Result Comment: The [place] Diabetes Association (ADA) provides guidance for cutoff values for fasting glucose and random glucose. The ADA defines fasting as no caloric intake for at least 8 hours. Fas ting plasma glucose results between 100 to 125 mg/dL indicate increased risk for diabetes (prediabetes). Fasting plasma glucose results greater than or equal to 126 mg/dL meet the criteria for diagnosis of diabetes. In the absence of unequivocal hyperglycemia, results should be confirmed by repeat testing. In a patient with classic symptoms of hyperglycemia or hyperglycemic crisis, random plasma glucose results greater than or equal to 200 mg/dL meet the criteria for diagnosis of diabetes. Reference: Standards of Medical Care in Diabetes 2016, [place] [employer] Association. Diabetes Care. 2016.39(Suppl 1). LAB BUN 7-21 mg/dL BUN High 47 LAB CRET 0.58-0.96 mg/dL Creatinine High 2.12 LAB NA 136-144 mmol/L Sodium 139 LAB K 3.7-5.1 mmol/L Potassium 5.0 LAB CL 97-105 mmol/L Chloride 100 LAB CO2 22-30 mmol/L CO2 27 LAB AGAP 9-18 mmol/L Anion Gap 12 LAB ALT 7-38 U/L ALT 16 LAB GFRAA eGFR- Amer. 28 LAB GFRNAA . eGFR-All Other Races 23 Result Comment: eGFR (Estimated GFR) Units of measure: mL/min/1.73 meters squared eGFR is derived from the reexpressed MDRD Study equation using the following parameters: serum creatinine, age, gender and race. The creatinine assay has been calibrated to be traceable to IDMS. An eGFR <60 mL/min/1.73m2 for >3 months is consistent with chronic kidney disease. Refer to KDOQI guidelines for clinical interpretation. In patients with unstable renal function, e.g. those with acute kidney injury, the eGFR may not accurately reflect actual GFR. Performed By: #### PT, PTT, CBCDIF, CMP, LD6, HBA1C #### [facility] [employer] [address] [place] [address] LD Collected: 02/07/2018 Status: F Source: [facility] 9:35 AM [facility] [place] REPOSITORY TYPE CODE TESTS RESULT OUT OF RANGE REFERENCE UNITS LAB LD 135-214 U/L High LD 267 Performed By: #### PT, PTT, CBCDIF, CMP, LD6, HBA1C #### [facility] [employer] [address] [place] [address] HEMOGLOBIN A1C Collected: 02/07/2018 Status: F Source: [place] 9:35 AM [facility] REPOSITORY TYPE CODE TESTS RESULT OUT OF REFERENCE UNITS RANGE LAB HGBA1C 4.3-5.6 % High Hemoglobin A1c 6.5 Result Comment: [place] Diabetes Association guidelines indicate that patients with HgbA1c in the range 5.7-6.4% are at increased risk for development of diabetes, and intervention by lifestyle modification may be beneficial. HgbA1c greater or equal to 6.5% is considered diagnostic of diabetes. LAB HBA0 mg/dL Est. Average Glucose 140 Result Comment: eAG: (Estimated average glucose) is a calculated value from HgbA1c and is shipping services sales representative of the average blood glucose level in the last 2-3 month period. Performed By: #### PT, PTT, CBCDIF, CMP, LD6, HBA1C #### [facility] [employer] [address] [place] [address] TYPE AND SCR (30D) Collected: 02/07/2018 Status: F Source: [place] 9:35 AM [facility] REPOSITORY TYPE CODE TESTS RESULT OUT OF REFERENCE UNITS RANGE LAB %ABR B ABO/RH(D) NEGATIVE LAB % Antibody NEG Screen Performed By: #### [id number] #### [facility] [employer] [address] [place] [address] TSH Collected: 02/07/2018 Status: F Source: [place] 9:35 AM [facility] REPOSITORY TYPE CODE TESTS RESULT OUT OF RANGE REFERENCE UNITS LAB TSH 0.400-5.500 uU/mL TSH 1.460 Performed By: #### TSH #### [facility] [address] [place], [place] [address] US THYROID/PARATHYROID Observed: 02/07/2018 Status: F Source: [place] 8:44 AM [facility] REPOSITORY * * *Final Report* * * DATE OF EXAM: Feb 07 2018 8:44AM [facility] 1048 - US THYROID/PARATHYROID / PROCEDURE REASON: Multiple thyroid nodules * * * * Physician Interpretation * * * * EXAMINATION: THYROID ULTRASOUND HISTORY: Thyroid nodules noted on chest CT TECHNIQUE: Sonography and Doppler imaging of the thyroid was performed. Images were obtained and stored in a permanent archive. COMPARISON: None. RESULT: RIGHT LOBE: 5.2 x 2.1 x 2.7 cm; heterogeneous with numerous nodules, expected vascular flow LEFT LOBE: 5.6 x 2.8 x 2.1 cm; heterogeneous with numerous nodules, expected vascular flow ISTHMUS: 0.4 cm Nodules: Multiple nodules, with examples as follows: NODULE 1 Location: Right lower pole Size: 1.8 x 1.6 x 1.6 cm Characteristics: Composition: Spongiform, 0 points Echogenicity: Hypoechoic, 2 points Shape: Xptvq-zfmg-mrix, 0 points Margin: Smooth, 0 points Echogenic foci (Add points for all that apply): None, 0 points Internal vascularity: absent Interval growth:No prior available for comparison Total points / TI-RADS Category: 2 TI-RADS 2 ACR Recommendation: TI-RADS 2 Nodule. No follow-up or FNA is advised. NODULE 2 Location: Right upper pole Size: 0.9 x 0.7 x 0.9 cm Characteristics: Composition: Mixed cystic and solid, 1 point Echogenicity: Hypoechoic, 2 points Shape: Tijfb-npnx-qjru, 0 points Margin: Smooth, 0 points Echogenic foci (Add points for all that apply): Large comet tail artifacts in cysts, 0 points Internal vascularity: present Interval growth:No prior available for comparison Total points / TI-RADS Category: 3 TI-RADS 3 ACR Recommendation: TI-RADS 3 nodule. No FNA or further imaging is advised. NODULE 3 Location: Left lower pole Size: 2.8 x 1.9 x 2.0 cm Characteristics: Composition: Cystic or almost completely cystic, 0 points Echogenicity: Anechoic,0 points Shape: Ndbzm-nbaf-enob, 0 points Margin: Smooth, 0 points Echogenic foci (Add points for all that apply): Peripheral (rim) calcification (complete or incomplete), 2 points Internal vascularity: absent Interval growth:No prior available for comparison Total points / TI-RADS Category: 2 TI-RADS 2 ACR Recommendation: TI-RADS 2 Nodule. No follow-up or FNA is advised. NODULE 4 Location: Left mid Size: 1.0 x 0.6 x 0.8 cm Characteristics: Composition: Spongiform, 0 points Echogenicity: Hypoechoic, 2 points Shape: Tewgm-fika-atmg, 0 points Margin: Smooth, 0 points Echogenic foci (Add points for all that apply): None, 0 points Internal vascularity: absent Interval growth:No prior available for comparison Total points / TI-RADS Category: 2 TI-RADS 2 ACR Recommendation: TI-RADS 2 Nodule. No follow-up or FNA is advised. IMPRESSION: THYROID NODULES PRESENT. ACR TI-RADS LEVEL AND RECOMMENDATIONS DETAILED IN BODY OF REPORT. Shift Boss: RICHARD Transcribe Date/Time: Feb 07 2018 8:54A Dictated by : CARLYLE SAWYER JR, MD This examination was interpreted and the report reviewed and electronically signed by: CARLYLE SAWYER JR, MD on Feb 07 2018 11:44AM EST [id number] US ABDOMEN COMPLETE Observed: 02/07/2018 Status: F Source: [place] 8:25 AM [facility] REPOSITORY * * *Final Report* * * DATE OF EXAM: Feb 07 2018 8:25AM [facility] 1040 - US ABDOMEN COMPLETE / PROCEDURE REASON: multiple diagnoses * * * * Physician Interpretation * * * * EXAMINATION: COMPLETE ABDOMINAL ULTRASOUND CLINICAL HISTORY: Pre-operative cardiovascular examination Mitral valve stenosis, unspecified etiology TECHNIQUE: Sonography of the abdomen was performed. Images were obtained and stored in a permanent archive. MQ: UAbC_1 COMPARISON: None RESULT: Pancreas: Normal sonographic appearance. Portions obscured: Tail Lesions: None Liver: Echotexture: Coarse Echogenicity: Normal Surface contour: Nodular Lesions: None. Biliary: No intrahepatic biliary duct dilation. CBD: 0.3 cm at the hilum. Gallbladder: Cholecystectomy Spleen: Craniocaudal length: 8.8 cm normal Lesions: None Right Kidney: -Renal length: 12.5 cm -Parenchyma: Normal parenchymal echogenicity. Normal parenchymal thickness. -Collecting system: No hydronephrosis. -Calculus: No echogenic, shadowing calculus. -Lesion: None. Left Kidney: -Renal length: 11.5 cm -Parenchyma: Normal parenchymal echogenicity. Normal parenchymal thickness except for focal defect/scar at the lower pole. -Collecting system: No hydronephrosis. -Calculus: No echogenic, shadowing calculus. -Lesion: Prominent rounded appearance of the lower pole may be accentuated due to adjacent scarring however underlying lesion is not excluded. Bladder: Normal. IVC: Imaged segment is patent. Abdominal Aorta (AP x TV): Proximal: 2.2 cm x 2.1 cm Mid: 1.8 cm x 2.0 cm Distal: Obscured by bowel gas Atherosclerotic plaque: present Right common iliac: Obscured by bowel gas Left common iliac: Obscured by bowel gas Ascites: None. IMPRESSION: CIRRHOTIC LIVER MORPHOLOGY. NO LESIONS IDENTIFIED. FOCALLY PROMINENT LOWER POLE OF THE LEFT KIDNEY MAY BE ACCENTUATED DUE TO ADJACENT SCARRING HOWEVER AN UNDERLYING LESION IS NOT EXCLUDED. CT MAY BE HELPFUL FOR FURTHER EVALUATION. Shift Boss: RICHARD Transcribe Date/Time: Feb 07 2018 8:51A Dictated by : CARLYLE SAWYER JR, MD This examination was interpreted and the report reviewed and electronically signed by: CARLYLE SAWYER JR, MD on Feb 07 2018 10:24AM EST [id number] CNCNPATED Observed: 02/07/2018 Status: COMPLETED Source: [place] 12:00 AM [facility] REPOSITORY Education (CARTMN) DEDRA LARA ([id number]) 1945 F Date Time Provider Department 02/07/18 PADMINI WINTERS ([facility]) CARTMN Reason for Visit: Patient Education [91] Progress Notes: Padmini Winters APRN.CNP 02/07/2018 5:47 PM Signed AMBULATORY PATIENT EDUCATION READINESS TO LEARN Cognitive Ability: Alert and oriented Motivation To Learn: Interested Family Support: High - Very involved in pt care Instruction Provided To: Patient AND Family Patient Learns Best By: Multiple Methods Factors Affecting Learning: None Physical Limitations Affecting Learning: None LEARNING RESPONSE Diagnosis: mitral stenosis Education Topic: Pre-Op Open Heart Surgery Instructions Teaching Points: Logistics / Protocols /Complication Prevention Instruction/Supplemental Materials: Cardiac Surgery Information Binder, Individual Instruction Patient/Family Response: Verbalizes understanding Follow up plan: Patient/Family to call [facility] with any further questions Referral (Recommendation): None Teach completed, topic: Bactroban instructions given During your visit today, we recorded the following information about you: Allergies As of Date: 02/07/2018 Noted Allergy Reaction CEPHALEXIN 11/05/2017 6 - Diarrhea DOXYCYCLINE 2 - Rash HYDROCODONE BITARTRATE 11/05/2017 12 - Shortness of Breath INDOMETHACIN 11/05/2017 6 - Diarrhea KETOPROFEN 11/05/2017 6 - Diarrhea METFORMIN 11/05/2017 6 - Diarrhea NITROFURANTOIN 11/05/2017 12 - Shortness of Breath PENICILLINS 11/05/2017 4 - Hives PERCOCET (OXYCODONE-ACETAMINOPHEN)11/06/2017 2 - Rash SULFA (SULFONAMIDE ANTIBIOTICS) 11/05/2017 14 - Other: See Comments Comments: Sore tongue TIOTROPIUM 11/05/2017 12 - Shortness of Breath Date Reviewed: 02/07/2018 Reviewed by: [facility] Jose - Fully Assessed Prescriptions as of 02/07/2018 Sig: MUPIROCIN 2 % TOPICAL OINTMENT Apply twice the day before france* CIPROFLOXACIN 250 MG TABLET Take 1 tablet by mouth twice * IV CONTRAST (RADIOLOGY PROCED* CT Chest W -Inject, intraveno* VENTOLIN HFA 90 MCG/ACTUATION* Inhale 2 Puffs as instructed. FERROUS SULFATE 325 MG (65 MG* Take 1 tablet by mouth twice * FUROSEMIDE 40 MG TABLET Take 40 mg by mouth twice didi* GLIPIZIDE ER 10 MG TABLET, EX* Take 10 mg by mouth twice didi* LISINOPRIL 20 MG TABLET Take 20 mg by mouth daily at * METOPROLOL TARTRATE 50 MG TAB* Take 50 mg by mouth twice didi* MONTELUKAST 10 MG TABLET Take 10 mg by mouth once william* KLOR-CON M20 MEQ TABLET,EXTEN* Take 20 mEq by mouth once didi* SIMVASTATIN 20 MG TABLET Take 20 mg by mouth daily at * TRAMADOL 50 MG TABLET Take 50 mg by mouth three juan antonio* TRAZODONE 50 MG TABLET Take 50 mg by mouth daily at * ORALIAAGLKIZZY HANSONPEN U-100 INSULI* INJECT 80 UNITS SUB-Q (UNDER * ASPIRIN 81 MG TABLET,DELAYED * Take 81 mg by mouth once william* Encounter Status:Closed by PADMINI WINTERS CNP on 02/07/18 RENAL PROFILE Collected: 02/04/2018 Status: F Source: [place] 9:16 AM [facility] REPOSITORY TYPE CODE TESTS RESULT OUT OF RANGE REFERENCE UNITS LAB L501.0100 74-106 mg/dL High GLU 304 Result Comment: Glucose result greater than or equal to 200 mg/dL suggests DIABETES MELLITUS per A.D.A. criteria. Please note revised GLUCOSE reference range effective 2017. LAB L501.1000 7-18 mg/dL High BUN 45 LAB L501.1100 0.55-1.02 mg/dL High CREAT,SERUM 1.83 Result Comment: The validity of the calculated GFR AND GFRAA in patients over 70 years has not been determined. Clinical correlation is essential. LAB L501.1110 >60 mL/min Low EST GFR 29 Result Comment: Non- GFR Calc LAB L501.1115 >60 mL/min Low EST GFR - AA 35 Result Comment: GFR Calc LAB L501.1300 10-20 RATIO High BUN/CRE 24.6 LAB L501.1800 3.2-5.0 g/dL Normal ALB 3.2 LAB L501.2200 8.5-10.1 mg/dL CA Normal 8.9 LAB L501.2300 2.5-4.9 mg/dL Normal PHOS 3.6 LAB L501.5300 136-145 mmol/L NA Normal 137 LAB L501.5600 3.5-5.1 mmol/L K Normal 4.5 LAB L501.5900 98-107 mmol/L CL Normal 99 LAB L501.6100 21.0-32.0 mmol/L Normal CO2 28.0 Performed By: #### L500.3600 #### [facility] [address] [place], [address] PTHIN Collected: 02/04/2018 Status: F Source: [place] 9:16 AM [facility] REPOSITORY TYPE CODE TESTS RESULT OUT OF RANGE REFERENCE UNITS LAB L509.1000 18.4-80.1 pg/mL High PTHIN 94.3 Performed By: #### L509.1000 #### [facility] [address] [place], [address] PULMONARY VISIT REPORT Observed: 01/28/2018 Status: F Source: [place] 1:10 PM [facility] REPOSITORY [facility] [address] [place] [address] OFFICE VISIT Date of Service: 01/28/18 MR#: [id number] Acct: [id number] Name: DEDRA LARA Rep #: [id number] : 1945 Provider: Angus Erickson MD Age/Sex: 72/F Location[facility] Status: Signed Assessment AND Plan Problems 1. Other secondary pulmonary hypertension I27.29 2. Bronchiectasis without complication J47.9 3. LADI (obstructive sleep apnea) G47.33 4. Morbid obesity with BMI of 40.0-44.9, adult E66.01; Z68.41 Plan Patient overall appears to be doing well with increased dose of Lasix therapy. Clinical suspicion of most of her lung findings are secondary to her aortic valve. Patient will have this replaced next month. Will have patient come back in 6 months for repeat pulmonary function test walking oximetry for comparison. Patient may be able to be decreased off on Symbicort therapy. Did stress to the patient the role of weight loss and the overall disease plan of care. Patient was also stressed to use her BiPAP in the perioperative period given narcotics will be required. Continue BiPAP. Repeat pulmonary function test and walking oximetry prior to next visit Orders Orders: Plan Detail Follow Up 6 Months (BW) HPI 3 M FU: Chief Complaint: Shortness of breath on exertion Details: This 72-year-old female, currently under the care of Dr. Stanton, who presents for evaluation secondary to shortness of breath on exertion. Since last visit, patient denied any ER visits, hospitalizations or prednisone burst. Patient has been evaluated by the [facility] is supposed to have a valve replacement next month. Patient states that surgery will be complicated secondary to extensive calcification. Patient states that it is so bad they are assuming she had rheumatic fever as a child. Patient reports that her dyspnea is relatively unchanged compared to previous. Patient has been increased on her Lasix therapy and has not required any further thoracentesis for shortness of breath. Patient denies any productive cough. Dry cough is noted on a daily basis. Patient reports she is been compliant with BiPAP by nasal pillow. Patient states that this is working well. Patient denies any pain at the interface site, congestion, sore throat or hoarseness. Patient wakes rested and does not require naps during the day. Patient has been compliant with her Symbicort therapy. Patient denies any complications such as thrush, hoarseness or sore throat. Patient does have Ventolin, but is not been required. Imaging reviewed with the patient Chest x-ray (10/15/2017): Right basilar effusion with possible consolidation similar to previous study and prominent central arteries HPI Comments Details: Intake Vital Signs01/28/18 Height 5 ft 1 in 01/28/18 Weight: 97.069 kg Intake Visit Reasons: 3 M FU Manager Of Selection And Assessment Required: No Accompanied by: Self Is patient in pain?: No Allergies doxycycline Allergy (Severe, Verified 01/28/18 09:59) Rash nitrofurantoin Allergy (Severe, Verified 01/28/18 09:59) asthma attack tiotropium [From Spiriva with HandiHaler] Allergy (Severe, Verified 01/28/18 09:59) difficulty breathing hydrocodone bitartrate [From Vicodin] Allergy (Verified 01/28/18 09:59) Shortness of breath Penicillins Allergy (Verified 01/28/18 09:59) Hives azithromycin Adverse Reaction (Intermediate, Verified 01/28/18 09:59) Diarrhea cephalexin Adverse Reaction (Intermediate, Verified 01/28/18 09:59) Diarrhea indomethacin [From Indocin] Adverse Reaction (Intermediate, Verified 01/28/18 09:59) Diarrhea ketoprofen [From Orudis] Adverse Reaction (Intermediate, Verified 01/28/18 09:59) Diarrhea metformin [From Glucophage] Adverse Reaction (Intermediate, Verified 01/28/18 09:59) Diarrhea sulfamethoxazole [From Septra] Adverse Reaction (Intermediate, Verified 01/28/18 09:59) sore tongue trimethoprim [From Septra] Adverse Reaction (Intermediate, Verified 01/28/18 09:59) sore tongue oxycodone HCl [From Percocet] Adverse Reaction (Verified 01/28/18 09:59) Rash Medications Glipizide [Glucotrol Xl] 10 mg PO BID 09/02/14 [History Confirmed 01/28/18] Aspirin [Aspirin, Baby] 81 mg PO DAILY 09/27/14 [History Confirmed 01/28/18] Montelukast [Singulair] 10 mg PO DAILY 09/21/15 [History Confirmed 01/28/18] Insulin Glargine,Hum.rec.anlog [Basaglar Kwikpen U-100] 75 unit SQ QHS 06/24/17 [History Confirmed 01/28/18] Lisinopril [Zestril] 20 mg PO QHS 06/24/17 [History Confirmed 01/28/18] Simvastatin [Zocor] 20 mg PO QHS 06/24/17 [History Confirmed 01/28/18] Symbicort 160-4.5 Mcg Inhaler 2 puff IH BID 06/24/17 [History Confirmed 01/28/18] traMADol [Ultram] 50 mg PO TID PRN 06/24/17 [History Confirmed 01/28/18] albuterol sulfate HFA 90 mcg/actuation aerosol inhaler 2 puff INHALATION Q4H PRN g 07/03/17 [History Confirmed 01/28/18] Docusate Sodium [Colace] 200 mg PO DAILY 09/16/17 [History Confirmed 01/28/18] traZODone [Desyrel] 50 mg PO QHS PRN 09/16/17 [History Confirmed 01/28/18] Ferrous Sulfate 325 mg PO BIDCM #60 tab 09/18/17 [Rx Confirmed 01/28/18] Loperamide [Imodium] 2 mg PO Q4H PRN PRN cap 09/18/17 [Rx Confirmed 01/28/18] metoprolol tartrate 25 mg tablet 25 mg PO .COMPLEX tab 10/15/17 [History Confirmed 01/28/18] metoprolol tartrate 50 mg tablet 50 mg PO .COMPLEX 10/15/17 [History Confirmed 01/28/18] furosemide 40 mg tablet 40 mg PO BID #180 tab 10/17/17 [Rx Confirmed 01/28/18] potassium chloride ER 20 mEq tablet,extended release(part/cryst) 20 meq PO QDAY #30 tab 10/30/17 [Rx Confirmed 01/28/18] PFSH Medical History History of non-ST elevation myocardial infarction (NSTEMI) (Chronic 06/25/17) Secondary pulmonary hypertension (Chronic) Personal history of transient ischemic attack (TIA), 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) Nonrheumatic mitral (valve) stenosis (Chronic) Other secondary pulmonary hypertension (Chronic) Atherosclerotic heart disease of [place] coronary artery without angina pectoris (Chronic) LADI (obstructive sleep apnea) (Chronic) History of tobacco use (Chronic) Hypertension (Chronic) Hyperlipidemia (Chronic) History of TIA (transient ischemic attack) (Chronic) Morbid obesity with BMI of 40.0-44.9, adult (Chronic) Type II diabetes mellitus (Chronic) Non-ST elevation (NSTEMI) myocardial infarction (Resolved 06/2017) Surgical History History of left heart catheterization (Chronic 06/25/17) H/O arthroscopy of shoulder (Resolved) History of carpal tunnel surgery (Resolved) History of cholecystectomy (Resolved) History of tonsillectomy and adenoidectomy (Resolved) Family History Father , Age 62 CAD (coronary artery disease) Diabetes Hypertension Mother Diabetes Social History Smoking Status: Former smoker how long ago did patient quit smokin, 1.5p/d second hand exposure: Yes alcohol intake: current alcohol intake frequency: holidays/special occasions only substance use type: does not use Review of Systems Const CONSTITUTIONAL: Positive fatigue; negative anorexia, body ache, chills, daytime sleepiness, fever(s), night sweats, oral thrush, stops breathing during sleep, weight loss, sleeping in chair, weight loss, weight gain, frequent colds, seasonal allergies, other, headache(s) or orthopnea EETM Ear Nose Throat Mouth: Positive hearing normal; negative hoarseness, dry mouth in morning, change in vision, itchy eyes, eye pain, swallowing Difficulty, ear pain, headache(s), mouth pain, nasal congestion, nasal discharge, sinus pain, sinus pressure, sore throat, other, hard of hearing, nose bleed or post nasal drip Cardio Cardiovascular: Positive murmur (Unchanged); negative chest pain, chest pain at rest, chest pain with activity, irregular heart rhythm, edema, shortness of breath when lying down, palpitations or other Resp Respiratory: Positive as per HPI, shortness of breath shortness of breath: Positive with activity, cough cough: Positive non-productive and inhalers; negative pain with cough, wheezing, chest congestion, chest tightness, pain on inspiration, increase use of rescue inhalers, snoring, apnea or other Gastro Gastrointestional: Negative bloody stools, change in appetite, difficulty swallowing, reflux, hematemesis, melena stool, loose stool, constipation or other Genitourinary: Negative blood in urine, nocturia, pain with urination or other Musc Musculoskeletal: Negative body pain, back pain, neck pain or other Skin/Breast Skin/Breast: Negative dry skin, itching, unusual bruising, breast lump, other or rash Neuro Neurological: Negative restless legs, confusion, weakness or other Psych Psychocological: Negative abnormal sleep pattern, anxiety, thoughts of hurting self/others, hopelessness or other Lymph Lymphatic: Negative easy bleeding, easy bruising, other or swollen lymph nodes Exam Const Constitutional: Positive conversant, cooperative, in no acute respiratory distress, healthy appearing, well developed, well nourished and good hygiene; negative appears older than stated age, smells of smoke or wearing supplemental oxygen Head Head: Positive normocephalic and atraumatic; negative cyanosis of lips/distal nose, frontal sinus tenderness or maxillary sinus tenderness Eyes Eye: Positive clear conjunctiva; negative nystagmus, scleral abnormality or cataract present Ears Ear: Positive hearing normal and external ears normal; negative hard of hearing Nose Nose: Positive external nose normal, septum normal and no nasal discharge; negative epistaxis or nasal polyp Mouth Mouth: Positive oral mucosae normal, no lesions and crowded posterior oropharynx; negative post nasal drip, malodorous breath or oral thrush present Mallampati Score: III: Mallampati Score Neck Neck: Positive normal visual inspection, full ROM, trachea midline and female neck greater than 37 cm (15 in); negative lymphadenopathy or JVD Chest Wall Chest: Positive normal inspection of the chest and symmetric chest movement; negative crepitus or tenderness Resp lung sounds: Positive clear to auscultation, good air exchange, normal expiratory time and normal respiratory effort; negative wheezes, rhonchi, rales, use of accessory muscles, wheeze present on forced exhalation or dullness to percussion Cardio Cardiac: Positive murmur (Unchanged), regular rate, S1 normal and S2 normal; negative regular rhythm, rub or gallop GI GI: Positive normal to inspection and normal bowel sounds; negative distended, ascites or epigastric tenderness Genitourinary: Positive deferred Musc Musculoskeletal: Positive steady gait; negative using an assistive device for ambulation, kyphosis or scoliosis Skin Pulmonary Skin Exam: Positive intact; negative rash, lesion, ulcers, erythema or dermal atrophy Pulses Pulse: Yes radial pulses present Extremities Extremities: Yes capillary refill normal, No clubbing, No cyanosis, Yes edema (1+) Neuro Neurologic: Yes conversant, Yes no focal neuro deficits, Yes cooperative, Yes normal cognition, Yes normal coordination, Yes normal concentration, Yes understands questions Lymph Lymphatic: No lymphadenopathy Psych Appearance: Positive grossly normal Mental Status: Positive mental status grossly normal Mood: Positive congruent mood Affect: Positive normal affect Coding Level of Care Code Off vis,est,level 4 Diagnoses Other secondary pulmonary hypertension I27.29 Bronchiectasis without complication J47.9 Bronchiectasis type: uncomplicated LADI (obstructive sleep apnea) G47.33 Morbid obesity with BMI of 40.0-44.9, adult E66.01; Z68.41 01/28/18 1310 <Electronically signed by Angus Erickson MD> Date Angus Erickson MD Cosigner Signature: Date (if applicable) CC: Guillermina Stanton MD PROGRESS Observed: 01/11/2018 Status: COMPLETED Source: [place] 7:34 AM [facility] REPOSITORY HNO ID: [id number] Author: Bigg Lim Service: (none) Author Type: Physician Type: Progress Notes Filed: 01/11/2018 7:38 AM Note Text: Thoracic and Cardiovascular Surgery [facility] SURGICAL STAFF CONSULT Patient Type: CONSULT Visit to determine Surgery: YES PCP: Guillermina Stanton MD ([facility]) [address] [place] [address] Referring Physician: Guillermina Stanton MD ([facility]) [address] [place] [address] HPI: Ms. Dedra Lara is a seen in consultation at the request of Guillermina Stanton for an opinion regarding cardiac surgery after being seen and evaluated by Boone Perry MD. She is a 72 year old female with mitral stenosis. She is currently symptomatic and complains of shortness of breath. I have personally reviewed her cardiac catheterization which shows normal coronary arteries. Her echocardiogram reveals normal ventricular function and severe mitral stenosis. RHC shows PCWP 33. Chest CT confirms severe MAC. Not a candidate for standard TAVR valve in MAC and very high risk candidate for traditional Mitral Valve Replacement due to extensive infiltrating MAC. Her significant past medical history includes hypertnesion and hyperlipidemia. Based on my evaluation she is a reasonable candidate for surgery. Impression: Mitral stenosis Plan: Full Sternotomy and direct Miles valve insertion into MAC with Edu Hernandez, and Jacob. I spent more than 50% of the visit face to face counseling the patient on the plan and treatment options. The time spent counseling was 40 minutes. The total time of the face to face visit was 40 minutes. These findings will be communicated back to the requesting physician via electronic medical record and/or dictated letter. Bigg Lim MD PROGRESS Observed: 01/08/2018 Status: COMPLETED Source: [place] 9:27 AM [facility] REPOSITORY HNO ID: [id number] Author: Bigg Lim Service: (none) Author Type: Physician Type: Progress Notes Filed: 01/08/2018 9:29 AM Note Text: Thoracic and Cardiovascular Surgery [facility] CARDIOTHORACIC CLINIC NOTE CHART COPY DO NOT DISCARD Patient Type: Established Visit to determine Surgery: Yes PCP: Guillermina Stanton MD ([facility]) [address] [place] [address] Referring Physician:: SELF Ms. Dedra Lara returns to clinic today for continued evaluation. She is a 72 year old female with severe mitral stenosis and MAC. Her RHC shows PCWP 33. Impression: Severe MS Plan: I spoke with Dr. Cano and we will plan a open placement of Miles TAVR valve given severe MAC. Will coordinate schedules to include Jacob Aldridge, and myself in hybrid OR A round. I spent more than 50% of the visit face to face counseling the patient on the plan and treatment options. The time spent counseling was 20 minutes. The total time of the face to face visit was 20 minutes. These findings will be communicated back to the requesting physician via mail. Bigg Lim MD CNOV Observed: 01/07/2018 Status: COMPLETED Source: [place] 2:00 PM [facility] REPOSITORY Office Visit (TOMN) DEDRA LARA Gita ([id number]) 1945 F Date Time Provider Department 01/07/18 2:00 PM BIGG LIM TOMN During your visit today, we recorded the following information about you: Bigg Lim MD 01/08/2018 9:29 AM Signed Thoracic and Cardiovascular Surgery [facility] CARDIOTHORACIC CLINIC NOTE CHART COPY DO NOT DISCARD Patient Type: Established Visit to determine Surgery: Yes PCP: Guillermina Stanton MD ([facility]) [address] [place] [id number] Referring Physician:: SELF Ms. Dedra Lara returns to clinic today for continued evaluation. She is a 72 year old female with severe mitral stenosis and MAC. Her RHC shows PCWP 33. Impression: Severe MS Plan: I spoke with Dr. Cano and we will plan a open placement of Miles TAVR valve given severe MAC. Will coordinate schedules to include Jacob Aldridge, and myself in hybrid OR A round. I spent more than 50% of the visit face to face counseling the patient on the plan and treatment options. The time spent counseling was 20 minutes. The total time of the face to face visit was 20 minutes. These findings will be communicated back to the requesting physician via mail. Bigg Lim MD Referring Provider: SELF [[id number]] Allergies As of Date: 01/07/2018 Noted Allergy Reaction CEPHALEXIN 11/05/2017 6 - Diarrhea DOXYCYCLINE 2 - Rash HYDROCODONE BITARTRATE 11/05/2017 12 - Shortness of Breath INDOMETHACIN 11/05/2017 6 - Diarrhea KETOPROFEN 11/05/2017 6 - Diarrhea METFORMIN 11/05/2017 6 - Diarrhea NITROFURANTOIN 11/05/2017 12 - Shortness of Breath PENICILLINS 11/05/2017 4 - Hives PERCOCET (OXYCODONE-ACETAMINOPHEN)11/06/2017 2 - Rash SULFA (SULFONAMIDE ANTIBIOTICS) 11/05/2017 14 - Other: See Comments Comments: Sore tongue TIOTROPIUM 11/05/2017 12 - Shortness of Breath Date Reviewed: 12/31/2017 Reviewed by: Kash (Rn) LEONIDES Hong - Fully Assessed Primary Visit Diagnosis:Mitral valve disorder [I05.9] Prescriptions as of 01/07/2018 Sig: IV CONTRAST (RADIOLOGY PROCED* CT Chest W -Inject, intraveno* VENTOLIN HFA 90 MCG/ACTUATION* Inhale 2 Puffs as instructed. FERROUS SULFATE 325 MG (65 MG* Take 1 tablet by mouth twice * FUROSEMIDE 40 MG TABLET Take 40 mg by mouth twice didi* GLIPIZIDE ER 10 MG TABLET, EX* Take 10 mg by mouth twice didi* LISINOPRIL 20 MG TABLET Take 20 mg by mouth daily at * METOPROLOL TARTRATE 50 MG TAB* Take 50 mg by mouth once william* MONTELUKAST 10 MG TABLET Take 10 mg by mouth once william* KLOR-CON M20 MEQ TABLET,EXTEN* Take 20 mEq by mouth once didi* SIMVASTATIN 20 MG TABLET Take 20 mg by mouth daily at * TRAMADOL 50 MG TABLET Take 50 mg by mouth three juan antonio* TRAZODONE 50 MG TABLET Take 50 mg by mouth daily at * CRISTINA KENNEDY U-100 INSULI* INJECT 80 UNITS SUB-Q (UNDER * ASPIRIN 81 MG TABLET,DELAYED * Take 81 mg by mouth once william* Problem List As Of Date: 01/07/2018 (None) Encounter Status:Closed by BIGG LIM MD on 01/08/18 CNCO Observed: 01/06/2018 Status: COMPLETED Source: [place] 12:00 AM [facility] REPOSITORY Letter Text Angela Lopez Department of Cardiovascular Medicine [address] [place] [address] /[place] [id number] Office: [phone] January 06, 2018 NAME: DEDRA LARA : 1945 CLINIC NO: [id number] DATE OF SERVICE: 12/25/2017 It was my pleasure to see Ms. Lara today regarding severe mitral valve stenosis. Mr. Lara is a pleasant lady with some obesity and COPD who has unfortunately has had a functional decline as a result of exertional dyspnea over the last year or so. I reviewed an echocardiogram that demonstrates severe mitral valve stenosis with a mean gradient of over 13 mmHg with normal LV function and RV function. Estimated RVSP is around 50 mmHg. Coronary angiogram, which I reviewed, demonstrates mild atherosclerosis in a right-dominant coronary tree. Physical exam is as above. ASSESSMENTS AND PLANS: It was my pleasure to see Ms. Lara today regarding severe mitral valve stenosis. Unfortunately, we would not be able to perform percutaneous mitral balloon valvuloplasty as a result of the severity of her mitral annular calcification and leaflet calcification. The balloon would not work. We also cannot do [id number] because she has a small LV cavity that is hyperdynamic and, therefore, this will result in substantial and likely fatal LVOT obstruction. As such, her best option is for surgical mitral valve replacement. She is to see one of our cardiac surgeons, Dr. Srinivas Lim, in this regard later today. Please feel free to contact me with any questions. Sincerely yours, Boone Perry AK/089 Audio#: [id number] Date Dictated: 12/25/2017 08:31:54 Date Typed: 12/30/2017 05:35:34 cc: Dedra Davis [address] [place], [place] [address] BRIEF OP NOT Observed: 12/31/2017 Status: COMPLETED Source: [place] 9:56 AM [facility] REPOSITORY HNO ID: [id number] Author: Jorge Hercules Service: Cardiovascular Medicine Author Type: Physician Type: Brief Op Note Filed: 12/31/2017 10:07 AM Note Text: Brief Cath note: Indications: Mitral stenosis Access: 7Fr. Right internal jugular vein Closure: manual pressure Findings: RA 10mmHg RV 60/2 mmHg PA 60/22 mmHg, mean 36mmHg PCWP 27mmHg Cardiac output by thermodilution 5.68L/min No evidence for intracardiac shunt Impressions: Severe pulmonary HTN with normal Pulmonary vascular resistance Recommend: Continue diuresis Recommend continued planning for mitral valve replacement surgery Jorge Ramos MD Interventional Cardiology % O2HB (ARTERIAL) Collected: 12/31/2017 Status: F Source: [facility] 9:44 AM HEALTH SYSTEM REPOSITORY TYPE CODE TESTS RESULT OUT OF RANGE REFERENCE UNITS LAB O2HBA(LOINC 92.00-100.00 % ) Low % O2HB 54.00 (arterial) Performed By: #### O2HBA #### [place] [address] HISTORY PHYSICAL Observed: 12/31/2017 Status: COMPLETED Source: [place] 8:45 AM [facility] REPOSITORY HNO ID: [id number] Author: Jorge Hercules Service: Cardiovascular Medicine Author Type: Physician Type: HANDP Filed: 12/31/2017 9:56 AM Note Text: UPDATED HANDP PRE-CARDIAC CATHETERIZATION SERVICE DATE: 12/31/2017 SERVICE TIME: 8:45 am PHYSICAL EXAM MUST BE COMPLETED ON ADMISSION The History and Physical (completed in the past 30 days) has been reviewed and the patient has been examined. The contents accurately reflect the patient's condition with the following additions or revisions since the HANDP was completed. Examination indicates no changes. Planned Procedure: Right Heart Cath HISTORY OF BLEEDING: No This HANDP can be found in the Electronic Medical Record. SIGNATURE: Jorge Hercules MD PATIENT NAME: Dedra Lara DATE: December 31, 2017 TIME: 8:45 AM PAGER: [phone] CBC W/DIFF, AUTOMATED Collected: 12/30/2017 Status: F Source: [place] 10:28 AM [facility] REPOSITORY TYPE CODE TESTS RESULT OUT OF RANGE REFERENCE UNITS LAB L100.1000 4.4-11.0 K/mm3 Normal WBC 6.3 LAB L100.1200 4.2-5.4 M/mm3 Low RBC 3.49 LAB L100.1300 12.0-15.0 g/dl Low HGB 11.5 LAB L100.1400 37-47 % Low HCT 34.8 LAB L100.1500 81-99 fL High MCV 99.7 LAB L100.1600 27.0-32.0 pg High MCH 33.0 LAB L100.1700 32-36 g/gl Normal MCHC 33.0 LAB L100.1810 11.6-14.6 % Normal RDW CV 13.0 LAB L100.1820 35.1-43.9 fl High RDW SD 45.5 LAB L100.1900 150-450 K/mm3 Normal PLT 153 LAB L100.2000 6.2-12.0 fl Normal MPV 9.9 LAB L100.2100 47-70 % Normal NEUT% 60.6 LAB L100.2200 19-41 % Normal LY% 26.9 LAB L100.2300 0-10 % Normal MONO% 9.4 LAB L100.2400 0-5 % Normal EO% 2.4 LAB L100.2500 0-1 % Normal BASO% 0.5 LAB L100.2550 0.0-0.9 % Normal IM GRAN % 0.200 Result Comment: IG% - Immature Granulocytes (promyelocytes, myelocytes and metamyelocytes) > 1% indicates that a LEFT SHIFT is Present. LAB L100.2620 2.0-7.7 X10 3/uL Normal Absolute Neut 3.8 LAB L100.2720 0.83-4.51 X10 3/ul Normal Absolute Lymph 1.69 Performed By: #### L100.0100 #### [facility] [address] [place], [place], [address] IRON Collected: 12/30/2017 Status: F Source: [place] 10:28 AM [facility] REPOSITORY TYPE CODE TESTS RESULT OUT OF RANGE REFERENCE UNITS LAB L503.6150 50-170 ug/dL Normal IRON 100 Performed By: #### L503.6150, L503.6550 #### [facility] [address] [place], [address] FERRITIN Collected: 12/30/2017 Status: F Source: [place] 10:28 AM [facility] REPOSITORY TYPE CODE TESTS RESULT OUT OF RANGE REFERENCE UNITS LAB L503.6550 8-252 ng/mL Normal FERRITIN 66 Performed By: #### L503.6150, L503.6550 #### [facility] [address] [place], [address] HOSP Observed: 12/26/2017 Status: COMPLETED Source: [place] 12:00 AM CLINIC OTHER CAMPUS REPOSITORY Patient:Dedra Lara MRN: <[id number]> Height:5' 1(1.549 m) Weight:212 lb (96.163 kg) Outpatient Medications as of 12/31/17: aspirin 325 mg tablet iv contrast (will be provided with radiology test) VENTOLIN HFA 90 mcg/actuation inhaler ferrous sulfate 325 mg (65 mg iron) tablet furosemide (LASIX) 40 mg tablet glipiZIDE (GLUCOTROL XL) 10mg 24 hr tablet lisinopril (ZESTRIL, PRINIVIL) 20 mg tablet metoprolol tartrate, short acting, (LOPRESSOR) 50 mg tablet montelukast (SINGULAIR) 10 mg tablet KLOR-CON M20 20 mEq tablet simvastatin (ZOCOR) 20 mg tablet traMADol (ULTRAM) 50 mg tablet traZODone (DESYREL) 50 mg tablet BASAGLAR KWIKPEN U-100 INSULIN 100 unit/mL (3 mL) inpn aspirin, enteric coated (ASPIRIN, ENTERIC COATED) 81 mg EC tablet Admission/Clinic Administered Medications as of 12/31/17: NaCl 0.9% iv infusion heparin 1,000 Units in D5W 250 mL heparin 3,000 Units in NaCl 0.9% 500 mL irrigation Problem List: No problem list on file for this patient. Allergies: Cephalexin Doxycycline Hydrocodone Bitartrate Indomethacin Ketoprofen Metformin Nitrofurantoin Penicillins Percocet [Oxycodone-Acetaminophen] Sulfa (Sulfonamide Antibiotics) Tiotropium Date Verified: 12/31/17 Lab Values Lab Value Units Date High Low POTA* 5.0 mmol/L 12/25/2017 5.1 3.7 JESSE* 35.4 % 12/25/2017 46.0 36.0 Progress Notes ([facility]): Tatiana Giron RN 12/26/2017 8:59 AM Signed Patient scheduled for right heart cath, rt femoral, with Dr Ramos on 12/31/17. Instructions reviewed. Questions answered. Patient verbalized understanding. Instructions were as follows: -Arrive to [facility] Entrance 12/31/17 at time assigned by [facility] laborer wrecking and salvaging staff in phone call 12/30/17 PM.. -Nothing by mouth after midnight evening prior. -With a sip of water on 12/31/17 morning take: Aspirin 325mg along with usual BP meds- Metoprolol. -Pt will hold oral DM meds 12/31 am. She will alter her 12/30 HS insulin per recommendations prescribing MD. -Labs done. - You must have someone drive you home from your procedure. -laborer wrecking and salvaging policy is pt not be alone first evening Office phone number provided for questions or concerns. [facility] hot plate plywood press laborer notified. LEONIDES Hassan 12/26/2017 1:00 PM Signed Medicare [employer] is primary payer. No auth required. We have started a new process to provide estimates to our patients for their upcoming appointment. The purpose is to make you aware of your financial obligation after your insurance company pays. Your insurance shows your estimated patient responsibility for this service is $382.00. I see that you have a secondary insurance to your Medicare that may cover this expense. We are not collecting your estimate at this time but wanted you to be aware of potential out of pocket expenses based on the estimate we ran for you. Jeri Go Progress Notes ([facility]): Sary Dickerson RN 12/25/2017 2:35 PM Signed Patient seen in evaluation by Dr. Lim who has requested a right heart cath for the patient who prefers to have it performed at [facility]. Contacted Dr. Hollins's office and left message for his steel fabricator. Dr. Lim wishes to see patient for follow-up after the right heart cath has been completed. CNOV Observed: 12/25/2017 Status: COMPLETED Source: [place] 12:30 PM [facility] REPOSITORY [facility] DEDRA LARA ([id number]) 1945 F Date Time Provider Department 12/25/17 12:30 PM BIGG LIM [facility] During your visit today, we recorded the following information about you: Bigg Lim MD 01/11/2018 7:38 AM Signed Thoracic and Cardiovascular Surgery [facility] SURGICAL STAFF CONSULT Patient Type: CONSULT Visit to determine Surgery: YES PCP: Guillermina Stanton MD ([facility]) [address] [place], [place] [phone] Referring Physician: Guillermina Stanton MD ([facility]) [address] [place], [place] [phone] HPI: Ms. Dedra Lara is a seen in consultation at the request of Guillermina Stanton for an opinion regarding cardiac surgery after being seen and evaluated by Boone Perry MD. She is a 72 year old female with mitral stenosis. She is currently symptomatic and complains of shortness of breath. I have personally reviewed her cardiac catheterization which shows normal coronary arteries. Her echocardiogram reveals normal ventricular function and severe mitral stenosis. RHC shows PCWP 33. Chest CT confirms severe MAC. Not a candidate for standard TAVR valve in MAC and very high risk candidate for traditional Mitral Valve Replacement due to extensive infiltrating MAC. Her significant past medical history includes hypertnesion and hyperlipidemia. Based on my evaluation she is a reasonable candidate for surgery. Impression: Mitral stenosis Plan: Full Sternotomy and direct Miles valve insertion into MAC with Edu Hernandez, and Jacob. I spent more than 50% of the visit face to face counseling the patient on the plan and treatment options. The time spent counseling was 40 minutes. The total time of the face to face visit was 40 minutes. These findings will be communicated back to the requesting physician via electronic medical record and/or dictated letter. Bigg Lim MD Referring Provider: GUILLERMINA STANTON [[id number]] Allergies As of Date: 12/25/2017 Noted Allergy Reaction CEPHALEXIN 11/05/2017 6 - Diarrhea DOXYCYCLINE 2 - Rash HYDROCODONE BITARTRATE 11/05/2017 12 - Shortness of Breath INDOMETHACIN 11/05/2017 6 - Diarrhea KETOPROFEN 11/05/2017 6 - Diarrhea METFORMIN 11/05/2017 6 - Diarrhea NITROFURANTOIN 11/05/2017 12 - Shortness of Breath PENICILLINS 11/05/2017 4 - Hives PERCOCET (OXYCODONE-ACETAMINOPHEN)11/06/2017 2 - Rash SULFA (SULFONAMIDE ANTIBIOTICS) 11/05/2017 14 - Other: See Comments Comments: Sore tongue TIOTROPIUM 11/05/2017 12 - Shortness of Breath Date Reviewed: 12/25/2017 Reviewed by: Wendie Saleh) Squire - Fully Assessed Primary Visit Diagnosis:Rheumatic mitral stenosis [I05.0] Prescriptions as of 12/25/2017 Sig: IV CONTRAST (RADIOLOGY PROCED* CT Chest W -Inject, intraveno* VENTOLIN HFA 90 MCG/ACTUATION* Inhale 2 Puffs as instructed. FERROUS SULFATE 325 MG (65 MG* Take 1 tablet by mouth twice * FUROSEMIDE 40 MG TABLET Take 40 mg by mouth twice didi* GLIPIZIDE ER 10 MG TABLET, EX* Take 10 mg by mouth twice didi* LISINOPRIL 20 MG TABLET Take 20 mg by mouth daily at * METOPROLOL TARTRATE 50 MG TAB* Take 50 mg by mouth once william* MONTELUKAST 10 MG TABLET Take 10 mg by mouth once william* KLOR-CON M20 MEQ TABLET,EXTEN* Take 20 mEq by mouth once didi* SIMVASTATIN 20 MG TABLET Take 20 mg by mouth daily at * TRAMADOL 50 MG TABLET Take 50 mg by mouth three juan antonio* TRAZODONE 50 MG TABLET Take 50 mg by mouth daily at * BASAGLAR KWIKPEN U-100 INSULI* INJECT 80 UNITS SUB-Q (UNDER * ASPIRIN 81 MG TABLET,DELAYED * Take 81 mg by mouth once william* Problem List As Of Date: 12/25/2017 (None) Encounter Status:Closed by BIGG LIM MD on 01/11/18 CT CHEST CARDIAC WO Observed: 12/25/2017 Status: F Source: [facility] 9:21 AM [facility] [place] REPOSITORY * * *Final Report* * * DATE OF EXAM: Dec 25 2017 9:21AM [facility] 2055 - CT CHEST CARDIAC WO IVCON / PROCEDURE REASON: 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 History: 72 year old Female with prior history of severe mitral stenosis being considered for cardiac surgery. 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 Flash gated imaging was performed of the chest without intravenous administration of contrast material at the request of the referring physician. CT Dose-Length Product (DLP): [address] Dose Reduction Employed: Automated exposure control(AEC) and iterative recon For optimization of anatomic evaluation, advanced off-line postprocessing (including thin and thick MIPs, thin and thick MPRs, and curved MPRs) were performed on a dedicated stand-alone workstation under the direct supervision of the interpreting physician. RESULT: Potential study limitations: None. CHEST: Multiple bilateral thyroid nodules are noted, largest measuring 1.8 cm on the right and 2.1 cm on the left with the latter having wall calcifications. Correlation with thyroid ultrasound is recommended. The chest wall is unremarkable except for a 1.6 cm asymmetric opacity in the right lower breast (image #96). Correlation with mammography is recommended. Small shotty lymph nodes are noted in the mediastinum and bilateral axillary regions. The pericardium and pulmonary arteries appear normal, as best can be assessed on a noncontrast examination. Mild mid esophageal wall thickening is noted. Clinical correlation recommended. Small hiatal hernia. Lung windows reveal a moderate sized right pleural effusion with adjacent atelectasis. There are multiple subcentimeter noncalcified pulmonary nodules. For example, a 5 mm nodule in the right middle lobe (image # 75), a 4 mm noncalcified adjacent to the horizontal fissure (image #79),two 3 mm noncalcified right lower lung lobe nodules (image #95 and 11), a 6 mm nodule in the posterior left lower lobe (image # 91) and a 5 mm nodule in left lower lobe (image # 71). Incidental Finding: Follow-up for these incidentally detected lung nodules with chest CT exam is recommended in 3-6 months. If stable on follow-up imaging, a repeat chest CT exam in 12 months (15-18 months from the initial exam) is recommended. The cardiac chamber sizes are notable for moderate left atrial enlargement. Extensive mitral valve annular calcifications, with extension into the left ventricular inferoseptal myocardium. The coronary arteries have normal origins and courses. There are severe coronary calcifications identified, though this study was not optimized for coronary artery evaluation. Aortic valve morphology cannot be assessed on this noncontrast examination. Mild aortic cusps calcifications are seen. The thoracic aorta is normal in course and caliber, with moderate calcific atherosclerotic changes of the aortic arch and descending aortic segment. The arch vessel branching pattern is normal . Mat Roller dimensions of the thoracic aorta are as follows: 3.3 cm at the sinuses of Valsalva measured sinus to sinus. The sinotubular junction is preserved. 3.3 cm at the mid ascending aorta 3.1 cm at the distal ascending aorta 2.7 cm at the mid transverse arch 2.4 cm at the proximal descending thoracic aorta 2.3 cm at the diaphragmatic hiatus The limited images of the upper abdomen reveal a nodular appearance of the visualized liver surface suggestive of cirrhosis. Consider liver ultrasound. IMPRESSION: 1. The thoracic aorta is normal in course and caliber, with moderate calcific atherosclerotic changes of the aortic arch and descending aortic segment. 2. Extensive mitral valve annular calcifications, with extension into the left ventricular inferoseptal myocardium. 3. Severe coronary calcifications. 4. Multiple bilateral thyroid nodules are noted, largest measuring 1.8 cm on the right and 2.1 cm on the left, with the latter having wall calcifications. Correlation with thyroid ultrasound is recommended. 5. A 1.6 cm asymmetric opacity is seen in the right lower breast (image #96). Correlation with mammography is recommended. 6. Multiple incidental pulmonary nodules as described in the body of the report. Incidental Finding: Follow-up for these incidentally detected lung nodules with chest CT exam is recommended in 3-6 months. If stable on follow-up imaging, a repeat chest CT exam in 12 months (15-18 months from the initial exam) is recommended. 7. Nodular appearance of the visualized liver surface suggestive of cirrhosis. Consider liver ultrasound. 8. Moderate right pleural effusion with adjacent atelectasis. Shift Boss: RICHARD Transcribe Date/Time: Dec 25 2017 9:29A Dictated by : MILTON ORDAZ MD This examination was interpreted and the report reviewed and electronically signed by: INDU BRUCE MD on Dec 25 2017 12:04PM EST [id number] Observed: 12/25/2017 Status: COMPLETED Source: [place] 9:19 AM [facility] REPOSITORY HNO ID: [id number] Author: OLGA LIDIA Neri (Ct) Service: Radiology Author Type: Clinical Gi Asst Type: Progress Notes Filed: 12/25/2017 9:20 AM Note Text: Radiology Service Progress Note PATIENT NAME: Dedra Lara DATE OF SERVICE: December 25, 2017 TIME: 9:20 AM PATIENT IDENTITY VERIFICATION COMPLETED USING TWO (2) METHODS: Patient confirmed name verbally and ID band matches.. PATIENT GENDER DATA: Female. status: : No status: NO. PATIENT RELEVANT IMPLANT DATA REVIEWED: Yes RADIOLOGY DEPARTMENT: CT; Exam(s) Completed: Cardiac PERIPHERAL IV DATA: Not applicable SIGNED BY: OLGA LIDIA Neri December 25, 2017 9:20 AM CNOV Observed: 12/25/2017 Status: COMPLETED Source: [place] 8:00 AM [facility] REPOSITORY Office Visit ([facility]) ORINDEDRA Massey ([id number]) 1945 F Date Time Provider Department 12/25/17 8:00 AM BOONE PERRY [facility] During your visit today, we recorded the following information about you: Pulse Blood pressure 51/minute 170/67 Collette Martinez [facility] 01/06/2018 5:04 PM Signed Heart [facility] V[facility] Department of Cardiovascular Medicine SECTION OF INTERVENTIONAL CARDIOLOGY OUTPATIENT VISIT DATE December 25, 2017 OUTPATIENT VISIT TYPE CONSULTATION PRIMARY CARE PHYSICIAN: Guillermina Stanton MD ([facility]) [address] [place] [id number] REFERRING PHYSICIAN Bigg Lim MD [address] [facility] [address] SEE STAFF NOTE BELOW: CHIEF COMPLAINT: severe mitral stenosis HISTORY OF PRESENT ILLNESS: Cardiac consultation at the request of Dr. Bigg Lim. A copy of this consultation note will be provided to the requesting physician by way of shared Medical record or letter to requesting physician via US mail. Ms. Lara is a 72 year old female who is seen today for MS. PAST CARDIAC HISTORY: Severe MS PAST MEDICAL HISTORY Diagnosis Date - CAD (coronary artery disease) - Diabetes mellitus, type II (HCC) - Edema extremities - History of tobacco use - HLD (hyperlipidemia) - HTN (hypertension) - Morbid obesity with BMI of 40.0-44.9, adult (HCC) - Nonrheumatic mitral (valve) stenosis - NSTEMI (non-ST elevated myocardial infarction) ([facility]) - LADI (obstructive sleep apnea) - Pleural effusion - Pulmonary HTN (HCC) - TIA (transient ischemic attack) PAST SURGICAL HISTORY Procedure Laterality Date - CARPAL TUNNEL - CHOLECYSTECTOMY - ECHOCARDIOGRAM 09/17/2017 at [facility] - LEFT HEART CATH 06/25/2017 at [facility] - SHOULDER ARTHROSCOPY/SURG - TONSILLECTOMY AND ADENOIDECTOMY HX SOCIAL HISTORY Social History Substance Use Topics - Smoking status: Former Smoker Types: Cigarettes Quit date: 11/07/2003 - Smokeless tobacco: Never Used - Alcohol use Yes Comment: holidays / special occasions only FAMILY HISTORY Problem Relation Age of Onset - Diabetes Mother - Heart Father CAD - Diabetes Father - Hypertension Father ALLERGIES: ALLERGIES Allergen Reactions - Cephalexin Diarrhea - Doxycycline Rash - Hydrocodone Bitartr* Shortness of Breath - Indomethacin Diarrhea - Ketoprofen Diarrhea - Metformin Diarrhea - Nitrofurantoin Shortness of Breath - Penicillins Hives - Percocet [Oxycodone* Rash - Sulfa (Sulfonamide * Other: See Comments Sore tongue - Tiotropium Shortness of Breath MEDICATIONS: iv contrast (will be provided with radiology test) CT Chest W -Inject, intravenously, once for 1 dose.No IV access, insert saline lock prior to the beginning of sedation, infusion, injection of imaging exam. Discontinue saline lock post exam. If Pt. has a central line or IVAD, may access for administration according to line specific nursing protocol. Once exam is complete flush line and de-access according to line specific nursing protocol in the CT contrast administration guidelines link. VENTOLIN HFA 90 mcg/actuation inhaler Inhale 2 Puffs as instructed. furosemide (LASIX) 40 mg tablet Take 40 mg by mouth twice daily. glipiZIDE (GLUCOTROL XL) 10mg 24 hr tablet Take 10 mg by mouth twice daily. lisinopril (ZESTRIL, PRINIVIL) 20 mg tablet Take 20 mg by mouth daily at bedtime. metoprolol tartrate, short acting, (LOPRESSOR) 50 mg tablet Take 50 mg by mouth once daily. Taking 25 mg in am AND 50 mg @ night montelukast (SINGULAIR) 10 mg tablet Take 10 mg by mouth once daily. KLOR-CON M20 20 mEq tablet Take 20 mEq by mouth once daily. simvastatin (ZOCOR) 20 mg tablet Take 20 mg by mouth daily at bedtime. traMADol (ULTRAM) 50 mg tablet Take 50 mg by mouth three times daily. traZODone (DESYREL) 50 mg tablet Take 50 mg by mouth daily at bedtime. CRISTINA KENNEDY U-100 INSULIN 100 unit/mL (3 mL) inpn INJECT 80 UNITS SUB-Q (UNDER THE SKIN) ONCE DAILY aspirin, enteric coated (ASPIRIN, ENTERIC COATED) 81 mg EC tablet Take 81 mg by mouth once daily. ferrous sulfate 325 mg (65 mg iron) tablet Take 1 tablet by mouth twice daily. TAKE WITH FOOD. REVIEW OF SYSTEMS: GENERAL: no fever, no chills and no change in weight HEENT: no headaches, no hearing loss, no difficulty swallowing SKIN: no rashes and no lesions RESPIRATORY: SEE HPI CARDIOVASCULAR: See HPI GASTROINTESTINAL: no abdominal pain, no nausea and no vomiting GENITOURINARY: no dysuria, no frequency and no nocturia MUSCULOSKELETAL: no joint pain, no joint swelling and no muscle pain or myalgias NEUROLOGIC: no numbness, no tingling and no sensation of pins and needles HEMATOLOGY: no bruising easily, no prolonged bleeding and no anemia ENDOCRINE: no cold or heat intolerance, no polyuria and no polydipsia PSYCH: no sleep disturbance PHYSICAL EXAMINATION: There were no vitals taken for this visit. General: Well appearing, in no acute distress, speaking in complete sentences. Skin: No clubbing, no cyanosis. Head/Eyes: Extra ocular movements intact Mouth: Teeth in good repair. Neck: No jugular venous distention, no carotid bruits, carotids have a normal upstroke, no palpable thyromegaly. Lungs: Clear to auscultation and no rales Heart: Regular rhythm, PMI not displaced, S1, S2 normal, no S3, no S4, no heaves, no rub and no murmur. PV Pulses:Pulses intact Abdomen: Soft, nontender, bowel sounds normal, no palpable organomegaly, no bruits. Extremities: No peripheral edema . Grade 2/4 distal pulses bilaterally. Edema Scale: No Musculoskeletal: Normal gait and ambulation Neuro: Oriented to time, place and person STAFF NOTE: It was my pleasure to see Ms. Lara today regarding severe mitral valve stenosis. Mr. Lara is a pleasant lady with some obesity and COPD who has unfortunately has had a functional decline as a result of exertional dyspnea over the last year or so. I reviewed an echocardiogram that demonstrates severe mitral valve stenosis with a mean gradient of over 13 mmHg with normal LV function and RV function. Estimated RVSP is around 50 mmHg. Coronary angiogram, which I reviewed, demonstrates mild atherosclerosis in a right-dominant coronary tree. Physical exam is as above. ASSESSMENTS AND PLANS: It was my pleasure to see Ms. Lara today regarding severe mitral valve stenosis. Unfortunately, we would not be able to perform percutaneous mitral balloon valvuloplasty as a result of the severity of her mitral annular calcification and leaflet calcification. The balloon would not work. We also cannot do [id number] because she has a small LV cavity that is hyperdynamic and, therefore, this will result in substantial and likely fatal LVOT obstruction. As such, her best option is for surgical mitral valve replacement. She is to see one of our cardiac surgeons, Dr. Srinivas Lim, in this regard later today. Please feel free to contact me with any questions. [id number] Audio#: [id number] Date Dictated: 12/25/2017 08:31:54 Date Typed: 12/30/2017 05:35:34 Referring Provider: BIGG LIM [[id number]] Allergies As of Date: 12/25/2017 Noted Allergy Reaction CEPHALEXIN 11/05/2017 6 - Diarrhea DOXYCYCLINE 2 - Rash HYDROCODONE BITARTRATE 11/05/2017 12 - Shortness of Breath INDOMETHACIN 11/05/2017 6 - Diarrhea KETOPROFEN 11/05/2017 6 - Diarrhea METFORMIN 11/05/2017 6 - Diarrhea NITROFURANTOIN 11/05/2017 12 - Shortness of Breath PENICILLINS 11/05/2017 4 - Hives PERCOCET (OXYCODONE-ACETAMINOPHEN)11/06/2017 2 - Rash SULFA (SULFONAMIDE ANTIBIOTICS) 11/05/2017 14 - Other: See Comments Comments: Sore tongue TIOTROPIUM 11/05/2017 12 - Shortness of Breath Date Reviewed: 12/25/2017 Reviewed by: Wendie Gray - Fully Assessed Primary Visit Diagnosis:Severe mitral stenosis by prior echocardiogram [I05.0] Other Visit Diagnoses:Acute on chronic diastolic congestive heart failure (HCC) [I50.33] Essential hypertension [I10] Prescriptions as of 12/25/2017 Sig: IV CONTRAST (RADIOLOGY PROCED* CT Chest W -Inject, intraveno* VENTOLIN HFA 90 MCG/ACTUATION* Inhale 2 Puffs as instructed. FUROSEMIDE 40 MG TABLET Take 40 mg by mouth twice didi* GLIPIZIDE ER 10 MG TABLET, EX* Take 10 mg by mouth twice didi* LISINOPRIL 20 MG TABLET Take 20 mg by mouth daily at * METOPROLOL TARTRATE 50 MG TAB* Take 50 mg by mouth once william* MONTELUKAST 10 MG TABLET Take 10 mg by mouth once william* KLOR-CON M20 MEQ TABLET,EXTEN* Take 20 mEq by mouth once didi* SIMVASTATIN 20 MG TABLET Take 20 mg by mouth daily at * TRAMADOL 50 MG TABLET Take 50 mg by mouth three juan antonio* TRAZODONE 50 MG TABLET Take 50 mg by mouth daily at * BASAGLAR KWIKPEN U-100 INSULI* INJECT 80 UNITS SUB-Q (UNDER * ASPIRIN 81 MG TABLET,DELAYED * Take 81 mg by mouth once william* FERROUS SULFATE 325 MG (65 MG* Take 1 tablet by mouth twice * Problem List As Of Date: 12/25/2017 (None) Encounter Status:Closed by BOONE PERRY MD on 01/06/18 PROGRESS Observed: 12/25/2017 Status: COMPLETED Source: [place] 7:57 AM [facility] REPOSITORY HNO ID: [id number] Author: Collette Martinez [facility] Service: (none) Author Type: (none) Type: Progress Notes Filed: 01/06/2018 5:04 PM Note Text: [facility] Department of Cardiovascular Medicine SECTION OF INTERVENTIONAL CARDIOLOGY OUTPATIENT VISIT DATE December 25, 2017 OUTPATIENT VISIT TYPE CONSULTATION PRIMARY CARE PHYSICIAN: Guillermina Stanton MD ([facility]) [address] [place] [address] REFERRING PHYSICIAN Bigg Lim MD [address] [facility] [address] SEE STAFF NOTE BELOW: CHIEF COMPLAINT: severe mitral stenosis HISTORY OF PRESENT ILLNESS: Cardiac consultation at the request of Dr. Bigg Lim. A copy of this consultation note will be provided to the requesting physician by way of shared Medical record or letter to requesting physician via US mail. Ms. Lara is a 72 year old female who is seen today for MS. PAST CARDIAC HISTORY: Severe MS PAST MEDICAL HISTORY Diagnosis Date - CAD (coronary artery disease) - Diabetes mellitus, type II (HCC) - Edema extremities - History of tobacco use - HLD (hyperlipidemia) - HTN (hypertension) - Morbid obesity with BMI of 40.0-44.9, adult ([facility]) - Nonrheumatic mitral (valve) stenosis - NSTEMI (non-ST elevated myocardial infarction) ([facility]) - LADI (obstructive sleep apnea) - Pleural effusion - Pulmonary HTN ([facility]) - TIA (transient ischemic attack) PAST SURGICAL HISTORY Procedure Laterality Date - CARPAL TUNNEL - CHOLECYSTECTOMY - ECHOCARDIOGRAM 09/17/2017 at [facility] - LEFT HEART CATH 06/25/2017 at [facility] - SHOULDER ARTHROSCOPY/SURG - TONSILLECTOMY AND ADENOIDECTOMY HX SOCIAL HISTORY Social History Substance Use Topics - Smoking status: Former Smoker Types: Cigarettes Quit date: 11/07/2003 - Smokeless tobacco: Never Used - Alcohol use Yes Comment: holidays / special occasions only FAMILY HISTORY Problem Relation Age of Onset - Diabetes Mother - Heart Father CAD - Diabetes Father - Hypertension Father ALLERGIES: ALLERGIES Allergen Reactions - Cephalexin Diarrhea - Doxycycline Rash - Hydrocodone Bitartr* Shortness of Breath - Indomethacin Diarrhea - Ketoprofen Diarrhea - Metformin Diarrhea - Nitrofurantoin Shortness of Breath - Penicillins Hives - Percocet [Oxycodone* Rash - Sulfa (Sulfonamide * Other: See Comments Sore tongue - Tiotropium Shortness of Breath MEDICATIONS: iv contrast (will be provided with radiology test) CT Chest W -Inject, intravenously, once for 1 dose.No IV access, insert saline lock prior to the beginning of sedation, infusion, injection of imaging exam. Discontinue saline lock post exam. If Pt. has a central line or IVAD, may access for administration according to line specific nursing protocol. Once exam is complete flush line and de-access according to line specific nursing protocol in the CT contrast administration guidelines link. VENTOLIN HFA 90 mcg/actuation inhaler Inhale 2 Puffs as instructed. furosemide (LASIX) 40 mg tablet Take 40 mg by mouth twice daily. glipiZIDE (GLUCOTROL XL) 10mg 24 hr tablet Take 10 mg by mouth twice daily. lisinopril (ZESTRIL, PRINIVIL) 20 mg tablet Take 20 mg by mouth daily at bedtime. metoprolol tartrate, short acting, (LOPRESSOR) 50 mg tablet Take 50 mg by mouth once daily. Taking 25 mg in am AND 50 mg @ night montelukast (SINGULAIR) 10 mg tablet Take 10 mg by mouth once daily. KLOR-CON M20 20 mEq tablet Take 20 mEq by mouth once daily. simvastatin (ZOCOR) 20 mg tablet Take 20 mg by mouth daily at bedtime. traMADol (ULTRAM) 50 mg tablet Take 50 mg by mouth three times daily. traZODone (DESYREL) 50 mg tablet Take 50 mg by mouth daily at bedtime. BASAGLKZIZY HANSONPEN U-100 INSULIN 100 unit/mL (3 mL) inpn INJECT 80 UNITS SUB-Q (UNDER THE SKIN) ONCE DAILY aspirin, enteric coated (ASPIRIN, ENTERIC COATED) 81 mg EC tablet Take 81 mg by mouth once daily. ferrous sulfate 325 mg (65 mg iron) tablet Take 1 tablet by mouth twice daily. TAKE WITH FOOD. REVIEW OF SYSTEMS: GENERAL: no fever, no chills and no change in weight HEENT: no headaches, no hearing loss, no difficulty swallowing SKIN: no rashes and no lesions RESPIRATORY: SEE HPI CARDIOVASCULAR: See HPI GASTROINTESTINAL: no abdominal pain, no nausea and no vomiting GENITOURINARY: no dysuria, no frequency and no nocturia MUSCULOSKELETAL: no joint pain, no joint swelling and no muscle pain or myalgias NEUROLOGIC: no numbness, no tingling and no sensation of pins and needles HEMATOLOGY: no bruising easily, no prolonged bleeding and no anemia ENDOCRINE: no cold or heat intolerance, no polyuria and no polydipsia PSYCH: no sleep disturbance PHYSICAL EXAMINATION: There were no vitals taken for this visit. General: Well appearing, in no acute distress, speaking in complete sentences. Skin: No clubbing, no cyanosis. Head/Eyes: Extra ocular movements intact Mouth: Teeth in good repair. Neck: No jugular venous distention, no carotid bruits, carotids have a normal upstroke, no palpable thyromegaly. Lungs: Clear to auscultation and no rales Heart: Regular rhythm, PMI not displaced, S1, S2 normal, no S3, no S4, no heaves, no rub and no murmur. PV Pulses:Pulses intact Abdomen: Soft, nontender, bowel sounds normal, no palpable organomegaly, no bruits. Extremities: No peripheral edema . Grade 2/4 distal pulses bilaterally. Edema Scale: No Musculoskeletal: Normal gait and ambulation Neuro: Oriented to time, place and person STAFF NOTE: It was my pleasure to see Ms. Lara today regarding severe mitral valve stenosis. Mr. Lara is a pleasant lady with some obesity and COPD who has unfortunately has had a functional decline as a result of exertional dyspnea over the last year or so. I reviewed an echocardiogram that demonstrates severe mitral valve stenosis with a mean gradient of over 13 mmHg with normal LV function and RV function. Estimated RVSP is around 50 mmHg. Coronary angiogram, which I reviewed, demonstrates mild atherosclerosis in a right-dominant coronary tree. Physical exam is as above. ASSESSMENTS AND PLANS: It was my pleasure to see Ms. Lara today regarding severe mitral valve stenosis. Unfortunately, we would not be able to perform percutaneous mitral balloon valvuloplasty as a result of the severity of her mitral annular calcification and leaflet calcification. The balloon would not work. We also cannot do [id number] because she has a small LV cavity that is hyperdynamic and, therefore, this will result in substantial and likely fatal LVOT obstruction. As such, her best option is for surgical mitral valve replacement. She is to see one of our cardiac surgeons, Dr. Srinivas Lim, in this regard later today. Please feel free to contact me with any questions. [id number] Audio#: [id number] Date Dictated: 12/25/2017 08:31:54 Date Typed: 12/30/2017 05:35:34 PROTIME Collected: 12/25/2017 Status: F Source: [place] 7:30 AM [facility] REPOSITORY TYPE CODE TESTS RESULT OUT OF RANGE REFERENCE UNITS LAB PSEC 9.7-13.0 sec PT Sec 11.3 LAB INR 0.9-1.3 PT INR 1.1 Result Comment: Vitamin K Antagonist (VKA) Therapeutic Range: INR 2 to 3 (Target INR of 2.5) Note: For patients treated with VKA drugs, such as warfarin, the [place] [employer] 2012 Guideline recommends a therapeutic INR range of 2 to 3 (target INR of 2.5). This recommendation includes high-risk patients with antiphospholipid syndrome with previous arterial or venous thromboembolism, current-generation mechanical or bioprosthetic aortic heart valve replacement. Note: Patients with mechanical aortic valve replacement and additional risk factors for thromboembolic events (atrial fibrillation, previous thromboembolism, LV dysfunction, hypercoagulable conditions) or an older generation mechanical AVR (i.e., ball in-Cage) or any mechanical MVR should have a INR therapeutic range of 2.5 to 3.5 (target INR of 3). Vu GARCIA, et al. Chest 2012, 141:7S-47S Roro RA, et al. [facility] 2017, 70: 252-289 Performed By: #### PT, PTT, CBCDIF, CMP, NTBNP #### [facility] [address], [place] [address] APTT Collected: 12/25/2017 Status: F Source: [place] 7:30 AM [facility] REPOSITORY TYPE CODE TESTS RESULT OUT OF RANGE REFERENCE UNITS LAB APTT 23.0-32.4 sec APTT 26.5 Result Comment: Unfractionated Heparin Therapeutic Ranges: Standard Heparin Nomogram: 53 to 78 seconds (anti-Xa level of 0.3 to 0.7 U/ml) Low Dose/ACS Nomogram: 49 to 67 seconds (anti-Xa level of 0.2 to 0.5 U/ml) Stroke Treatment Nomogram: 49 to 67 seconds (anti-Xa level of 0.2 to 0.5 U/ml) Note: The APTT therapeutic range has been determined for the current lot of laboratory APTT reagent in use throughout the [facility]. Performed By: #### PT, PTT, CBCDIF, CMP, NTBNP #### [facility] [employer] [address], [place] [address] CBC AND DIFFERENTIAL Collected: 12/25/2017 Status: F Source: [place] 7:30 AM [facility] REPOSITORY TYPE CODE TESTS RESULT OUT OF REFERENCE UNITS RANGE LAB WBC 3.70-11.00 k/uL WBC 7.64 LAB RBC 3.90-5.20 m/uL Low RBC 3.60 LAB HGB 11.5-15.5 g/dL Hemoglobin 11.7 LAB HCT 36.0-46.0 % Low Hematocrit 35.4 LAB MCV 80.0-100.0 fL MCV 98.3 LAB MCH 26.0-34.0 pG MCH 32.5 LAB MCHC 30.5-36.0 g/dL MCHC 33.1 LAB RDWCV 11.5-15.0 % RDW-CV 13.1 LAB PLTCT 150-400 k/uL Platelet Count 162 LAB MPV 9.0-12.7 fL MPV 9.6 LAB ANEUT % Neut% 64.0 LAB AANEUT 1.45-7.50 k/uL Abs Neut 4.86 LAB ALYMP % Lymph% 22.6 LAB AALYMP 1.00-4.00 k/uL Abs Lymph 1.73 LAB AMONO % Dixie% 10.2 LAB AAMONO <0.87 k/uL Abs Dixie 0.78 LAB AEOS % Eosin% 2.7 LAB AAEOS <0.46 k/uL Abs Eosin 0.21 LAB ABASO % Baso% 0.5 LAB AABASO <0.11 k/uL Abs Baso 0.04 LAB AUNRBC 0 /100 WBC NRBCs 0.0 LAB ABNRBC <0.01 k/uL Absolute nRBC <0.01 LAB DTYP DTYPE Auto Diff Performed By: #### PT, PTT, CBCDIF, CMP, NTBNP #### [facility] [employer] [address], [place] [address] COMP METABOLIC PANEL Collected: 12/25/2017 Status: F Source: [place] 7:30 AM [facility] REPOSITORY TYPE CODE TESTS RESULT OUT OF REFERENCE UNITS RANGE LAB TP 6.3-8.0 g/dL Protein, Total 7.7 LAB ALB 3.9-4.9 g/dL Low Albumin 3.8 LAB CA 8.5-10.2 mg/dL Calcium, Total 9.5 LAB TBIL 0.2-1.3 mg/dL Bilirubin, Total 0.4 LAB ALKP 34-123 U/L Alkaline Phosphatase 101 LAB AST 13-35 U/L AST 28 LAB GLU 74-99 mg/dL Glucose High 124 Result Comment: The [place] [employer] (ADA) provides guidance for cutoff values for fasting glucose and random glucose. The ADA defines fasting as no caloric intake for at least 8 hours. Fas ting plasma glucose results between 100 to 125 mg/dL indicate increased risk for diabetes (prediabetes). Fasting plasma glucose results greater than or equal to 126 mg/dL meet the criteria for diagnosis of diabetes. In the absence of unequivocal hyperglycemia, results should be confirmed by repeat testing. In a patient with classic symptoms of hyperglycemia or hyperglycemic crisis, random plasma glucose results greater than or equal to 200 mg/dL meet the criteria for diagnosis of diabetes. Reference: Standards of Medical Care in Diabetes 2016, [place] [employer] Association. Diabetes Care. 2016.39(Suppl 1). LAB BUN 7-21 mg/dL BUN High 46 LAB CRET 0.58-0.96 mg/dL Creatinine High 1.56 LAB NA 136-144 mmol/L Sodium 139 LAB K 3.7-5.1 mmol/L Potassium 5.0 LAB CL 97-105 mmol/L Chloride 99 LAB CO2 22-30 mmol/L CO2 26 LAB AGAP 9-18 mmol/L Anion Gap 14 LAB ALT 7-38 U/L ALT 12 LAB GFRAA eGFR- Amer. 39 LAB GFRNAA . eGFR-All Other Races 33 Result Comment: eGFR (Estimated GFR) Units of measure: mL/min/1.73 meters squared eGFR is derived from the reexpressed MDRD Study equation using the following parameters: serum creatinine, age, gender and race. The creatinine assay has been calibrated to be traceable to IDMS. An eGFR <60 mL/min/1.73m2 for >3 months is consistent with chronic kidney disease. Refer to KDOQI guidelines for clinical interpretation. In patients with unstable renal function, e.g. those with acute kidney injury, the eGFR may not accurately reflect actual GFR. Performed By: #### PT, PTT, CBCDIF, CMP, NTBNP #### [facility] [address], [place] [address] NT PRO BNP Collected: 12/25/2017 Status: F Source: [place] 7:30 AM [facility] REPOSITORY TYPE CODE TESTS RESULT OUT OF REFERENCE UNITS RANGE LAB PBNP <125 pg/mL High PRO B Natr 625 Peptide Performed By: #### PT, PTT, CBCDIF, CMP, NTBNP #### [place] [id number] TYPE AND SCR (30D) Collected: 12/25/2017 Status: F Source: [place] 7:30 AM [facility] REPOSITORY TYPE CODE TESTS RESULT OUT OF REFERENCE UNITS RANGE LAB %ABR B ABO/RH(D) NEGATIVE LAB % Antibody NEG Screen Performed By: #### [id number] #### [address] [address] PROGRESS Observed: 12/25/2017 Status: COMPLETED Source: [place] 7:23 AM [facility] REPOSITORY HNO ID: [id number] Author: Noa Hirsch Service: (none) Author Type: (none) Type: Progress Notes Filed: 12/25/2017 7:24 AM Note Text: Radiology Service Progress Note PATIENT NAME: Dedra Lara DATE OF SERVICE: December 25, 2017 TIME: 7:24 AM PATIENT IDENTITY VERIFICATION COMPLETED USING TWO (2) METHODS: Patient confirmed name verbally and Date of . PATIENT GENDER DATA: Female. status: : No status: NO. PATIENT RELEVANT IMPLANT DATA REVIEWED: Not Applicable RADIOLOGY DEPARTMENT: General X-ray: Exam(s) Completed: Chest X-Ray PERIPHERAL IV DATA: Not applicable SIGNED BY: Noa Hirsch December 25, 2017 7:24 AM XR CHEST 2V FRONTAL/LAT Observed: 12/25/2017 Status: F Source: [place] 7:18 AM [facility] REPOSITORY * * *Final Report* * * DATE OF EXAM: Dec 25 2017 7:18AM RICHARD [id number] - XR CHEST 2V FRONTAL/LAT / PROCEDURE REASON: Rheumatic mitral stenosis * * * * Physician Interpretation * * * * EXAMINATION: CHEST RADIOGRAPH (2 VIEW FRONTAL and LATERAL) CLINICAL HISTORY: Rheumatic mitral stenosis MQ: XC2_5 Comparison: CT performed concurrently RESULT: Lines, tubes, and devices: None. Lungs and pleura: There is central pulmonary venous congestion without overt edema. Small right pleural effusion is noted with adjacent atelectasis. No pneumothorax. Cardiomediastinal silhouette: Cardiac silhouette is enlarged with pulmonary venous congestion. Calcification of the aortic arch is noted. Mitral annular calcification is noted. Other: Degenerative changes are noted in the thoracic spine. IMPRESSION: Radiographic findings suggestive of congestive heart failure. Shift Boss: PSCB Transcribe Date/Time: Dec 25 2017 1:09P Dictated by : ASHLI MACIAS MD This examination was interpreted and the report reviewed and electronically signed by: ASHLI MACIAS MD on Dec 25 2017 1:09PM EST [id number] ECG COMPLETE W Observed: 12/25/2017 Status: F Source: [place] INTERPRETATION 7:18 AM [facility] REPOSITORY NAME : DEDRA LARA PID : [id number] : 1945 Gender : Female Race : Unknown ORD : [id number] Procedure Date : Dec 25 2017 07:18:34 Edit Date : Dec 31 2017 14:50:55 Diagnosis:SINUS BRADYCARDIA POSSIBLE LEFT ATRIAL ENLARGEMENT BORDERLINE ECG Confirmed by QUETA SIERRA M.D. ([id number]) on 12/31/2017 2:36:22 PM Ventricular Rate : 55 BPM Atrial Rate : 55 BPM P-R Interval : 192 ms QRS Duration : 98 ms Q-T Interval : 450 ms QTC Calculation(Bezet) : 430 ms P [place] : 69 degrees R [place] : 9 degrees T [place] : 13 degrees Test Reason : Location : 314 : J14 Overread By : QUETA SIERRA M.D. Edited By : QUETA SIERRA M.D. Referred By : BIGG LIM Acquired by : DAMIAN CHIANG Observed: 11/20/2017 Status: COMPLETED Source: [place] 12:00 AM [facility]AMP[facility] REPOSITORY Telephone (AGVASACC) DEDRA LARA ([id number]) 1945 F Date Time Provider Department 11/20/17 MARK HOLLINS During your visit today, we recorded the following information about you: Iris De León 11/20/2017 1:[address] Hollins has referred Ms. Lara to Dr. Bigg Lim MD Freddy Miller APRN.CAPRI RATLIFF 11/20/2017 1:57 PM Signed Referral signed. CAPRI Michaels 11/20/2017 2:04 PM Signed I have called and spoke to La at Dr. Lim office. They will review records and call the patient for apt within 10-14 days. Allergies As of Date: 11/20/2017 Noted Allergy Reaction CEPHALEXIN 11/05/2017 6 - Diarrhea DOXYCYCLINE 2 - Rash HYDROCODONE BITARTRATE 11/05/2017 12 - Shortness of Breath INDOMETHACIN 11/05/2017 6 - Diarrhea KETOPROFEN 11/05/2017 6 - Diarrhea METFORMIN 11/05/2017 6 - Diarrhea NITROFURANTOIN 11/05/2017 12 - Shortness of Breath PENICILLINS 11/05/2017 4 - Hives PERCOCET (OXYCODONE-ACETAMINOPHEN)11/06/2017 2 - Rash SULFA (SULFONAMIDE ANTIBIOTICS) 11/05/2017 14 - Other: See Comments Comments: Sore tongue TIOTROPIUM 11/05/2017 12 - Shortness of Breath Date Reviewed: 11/06/2017 Reviewed by: Mark Hollins - Fully Assessed Reason for Visit: Referral Information [4060] Primary Visit Diagnosis:Mitral valve stenosis, non-rheumatic [I34.2] Other Visit Diagnoses:Left ventricular hypertrophy [I51.7] Enlarged LA (left atrium) [I51.7] Mitral annular calcification [I05.9] Order(s):CONSULT TO CARDIOTHORACIC SURG [] Order #: [id number]: 1 Prescriptions as of 11/20/2017 Sig: VENTOLIN HFA 90 MCG/ACTUATION* Inhale 2 Puffs as instructed. FERROUS SULFATE 325 MG (65 MG* Take 1 tablet by mouth twice * FUROSEMIDE 40 MG TABLET Take 40 mg by mouth twice didi* GLIPIZIDE ER 10 MG TABLET, EX* Take 10 mg by mouth twice didi* LISINOPRIL 20 MG TABLET Take 20 mg by mouth daily at * METOPROLOL TARTRATE 50 MG TAB* Take 50 mg by mouth once william* MONTELUKAST 10 MG TABLET Take 10 mg by mouth once william* KLOR-CON M20 MEQ TABLET,EXTEN* Take 20 mEq by mouth once didi* SIMVASTATIN 20 MG TABLET Take 20 mg by mouth daily at * TRAMADOL 50 MG TABLET Take 50 mg by mouth three juan antonio* TRAZODONE 50 MG TABLET Take 50 mg by mouth daily at * BASAGLAR KWIKPEN U-100 INSULI* INJECT 80 UNITS SUB-Q (UNDER * ASPIRIN 81 MG TABLET,DELAYED * Take 81 mg by mouth once william* Problem List As Of Date: 11/20/2017 (None) Encounter Status:Closed by FREDDY MILLER CNP on 11/20/17 HISTORY PHYSICAL Observed: 11/06/2017 Status: COMPLETED Source: [place] 9:43 AM [facility] [place] REPOSITORY O ID: [id number] Author: Mark Hollins Service: (none) Author Type: Physician Type: HANDP Filed: 11/06/2017 10:03 AM Note Text: Dedra Lara is a 72-year-old woman referred for evaluation of symptomatic severe mitral stenosis. In 2015 and echo was performed revealing ejection fraction 75%, moderate left ventricular hypertrophy, severely enlarged left atrium, moderate mitral valve stenosis, and mild to moderate pulmonary to hypertension with RVSP 42 mmHg. In June 2017 she was admitted with a non-STEMI and underwent left heart catheterization which demonstrated a hyperdynamic left ventricle with ejection fraction 75% and nonobstructive coronary lesions. She was admitted in September with acute diastolic heart failure. Echo now showed severe diffuse mitral annular calcification, severe mitral stenosis with peak and mean gradients of 29 and 13 mmHg respectively, and moderate pulmonary hypertension with RVSP of 56 mmHg. She required right thoracentesis for a large right pleural effusion (transudate). She notes that she has had increasing exertional dyspnea and lack of energy for some time. She denies orthopnea, or chest pain. On her admission she had fairly severe lower extremity edema which has resolved or improved with increase in diuretic dosing. This is a setting of severe obstructive sleep apnea, for which she is on BiPAP (). She carries a long-term diagnosis of asthma, for which she is on inhalers. In September she underwent a 6 minute walk test which revealed poor exercise tolerance but no desaturations on room air. A recent CT scan the chest revealed no evidence of PE; calcified thoracic aorta and visualized great vessels; and the right pleural effusion (which were was drained). She has a remote history of smoking. During her admission in September, she was found to be anemic and was transfused 1 unit of packed cells. Recent colonoscopy was performed and by her report shows several lesions which underwent cauterization and biopsy of polyp, for which pathology is pending. She's had no bleeding from the rectum. During her recent admissions she was also found to have chronic stable renal insufficiency with creatinine of 1.3. She is to see a legal billing analyst near future. This is a setting of obesity; diabetes; hypertension; hypercholesterolemia. PAST MEDICAL HISTORY Diagnosis Date - CAD (coronary artery disease) - Diabetes mellitus, type II (HCC) - Edema extremities - History of tobacco use - HLD (hyperlipidemia) - HTN (hypertension) - Morbid obesity with BMI of 40.0-44.9, adult ([facility]) - Nonrheumatic mitral (valve) stenosis - NSTEMI (non-ST elevated myocardial infarction) ([facility]) - LADI (obstructive sleep apnea) - Pleural effusion - Pulmonary HTN (HCC) - TIA (transient ischemic attack) PAST SURGICAL HISTORY Procedure Laterality Date - CARPAL TUNNEL - CHOLECYSTECTOMY - ECHOCARDIOGRAM 09/17/2017 at [facility] - LEFT HEART CATH 06/25/2017 at [facility] - SHOULDER ARTHROSCOPY/SURG - TONSILLECTOMY AND ADENOIDECTOMY HX Current Outpatient Prescriptions on File Prior to Visit: VENTOLIN HFA 90 mcg/actuation inhaler Inhale 2 Puffs as instructed. ferrous sulfate 325 mg (65 mg iron) tablet Take 1 tablet by mouth twice daily. TAKE WITH FOOD. furosemide (LASIX) 40 mg tablet Take 40 mg by mouth twice daily. glipiZIDE (GLUCOTROL XL) 10mg 24 hr tablet Take 10 mg by mouth twice daily. lisinopril (ZESTRIL, PRINIVIL) 20 mg tablet Take 20 mg by mouth daily at bedtime. metoprolol tartrate, short acting, (LOPRESSOR) 50 mg tablet Take 50 mg by mouth once daily. Taking 25 mg in am AND 50 mg @ night montelukast (SINGULAIR) 10 mg tablet Take 10 mg by mouth once daily. KLOR-CON M20 20 mEq tablet Take 20 mEq by mouth once daily. simvastatin (ZOCOR) 20 mg tablet Take 20 mg by mouth daily at bedtime. traMADol (ULTRAM) 50 mg tablet Take 50 mg by mouth three times daily. traZODone (DESYREL) 50 mg tablet Take 50 mg by mouth daily at bedtime. BASAGLAR KWIKPEN U-100 INSULIN 100 unit/mL (3 mL) inpn INJECT 80 UNITS SUB-Q (UNDER THE SKIN) ONCE DAILY aspirin, enteric coated (ASPIRIN, ENTERIC COATED) 81 mg EC tablet Take 81 mg by mouth once daily. No current facility-administered medications on file prior to visit. REVIEW OF SYSTEMS: GENERAL: Fever - No Chills - No Night sweats - No Changes in weight - No NEUROLOGICAL: Headaches - No Seizures - No Passing out - No History of stroke or mini-stroke - No Head injury or trauma - No Numbness, tingling or sensation of pins and needles - No HEAD, EYES, EARS, NOSE, AND THROAT: Changes in hearing - No Changes in vision - No Nose bleeds - No CARDIOVASCULAR: Chest pain or pressure - No Palpitations - No Valvular heart disease - Yes Severe mitral stenosis. High blood pressure - Yes Irregular heart rate - No Heart attack - Yes Recent non-STEMI. Heart failure - Yes Recent acute diastolic heart failure. High Cholesterol - Yes History of rheumatic fever - She denies, by suspect she has had rheumatic fever. History of Scarlet fever - No History of atrial fibrillation - No RESPIRATORY: Cough - No Wheezing - No Shortness of breath - No Shortness of breath with exertion - Yes Coughing up blood - No Asthma - Yes Bronchitis - No Blood clot in your lung - No GASTROINTESTINAL: Abdominal discomfort - No Nausea - No Vomiting - No Diarrhea - No Constipation - No Difficulty swallowing - No Pain with swallowing - No Stomach pain after eating - No Passing blood with bowel movement - No Black tarry stool - No History of stomach ulcers - No Acid reflux or heartburn - No GENITOURINARY: GENITOURINARY: EXTREMITY: Edema (swelling) - yes; improved with increased diuretic therapy. Intermittent claudication (pain with walking) - No MUSCULOSKELETAL: Joint pain - No Joint swelling - No Back pain - No Muscle pain or ache - No Skin: Rash - No Lesions - No Sores - No Ulcers - No Tenderness - No Skin cancer - No HEMATOLOGY: Bleeding disorder - No Easy bruising - No Anemia - TYES Cancer - No Blood transfusions - Yes During recent admission. Blood clots - No ENDOCRINE: Diabetes - Yes Thyroid disorder - No PSYCHOLOGICAL: Depression - No Anxiety - No OTHER: I have reviewed Heart Catherization, 2D echocardiogram, CT of Chest, Labs and Office note of Dr. Hearn. On examination, she appears well and is breathing comfortably. Vitals signs are BP 134/70 (BP Site: Right Arm, BP Position: Sitting) Pulse 64 Resp 16 Ht 5' 1 (1.549 m) Wt 218 lb (98.9 kg) SpO2 99% BMI 41.19 kg/m? . There is no JVD. No cervical or supraclavicular adenopathy is palpated. The chest is symmetrical without deformity. Breath sounds are clear bilaterally. The cardiac rhythm is regular. There are no rubs, gallops, or murmurs. The carotid, subclavian, and radial pulses are 2+ and equal bilaterally. The abdomen is soft and non-tender. There are no abdominal masses. There is no hepatojugular reflux. There is no pretibial edema. There is no clubbing or cyanosis. In summary, Dedra Lara is a 72-year-old woman with symptomatic severe mitral stenosis who was recently admitted with acute diastolic heart failure. She is now compensated. I suspect she's had rheumatic fever in the past. On my review the catheterization and echo is clear that she has extremely extensive calcification of the mitral annulus mitral leaflets and calcification extends into the ventricle. I wouldn't anticipate this to be a fairly difficult reconstruction replacement. That being the case, I'm recommending that she be evaluated at [facility] for mitral valve replacement. A bioprosthesis would be indicated given her age and history of recent GI bleeding. She will be seen a dentist in preparation for possible surgery. Mark Hollins MD CNOV Observed: 11/06/2017 Status: COMPLETED Source: [place] 8:30 AM [facility] REPOSITORY Office Visit (AGVASACC) DEDRA LARA ([id number]) 1945 F Date Time Provider Department 11/06/17 8:30 AM MARK HOLLINS During your visit today, we recorded the following information about you: Pulse Respiration Blood pressure Weight 64/minute 16/minute 134/70 98.9 kg Height 1.549 m Mark Hollins MD 11/06/2017 10:03 AM Signed Dedra Lara is a 72-year-old woman referred for evaluation of symptomatic severe mitral stenosis. In 2015 and echo was performed revealing ejection fraction 75%, moderate left ventricular hypertrophy, severely enlarged left atrium, moderate mitral valve stenosis, and mild to moderate pulmonary to hypertension with RVSP 42 mmHg. In June 2017 she was admitted with a non-STEMI and underwent left heart catheterization which demonstrated a hyperdynamic left ventricle with ejection fraction 75% and nonobstructive coronary lesions. She was admitted in September with acute diastolic heart failure. Echo now showed severe diffuse mitral annular calcification, severe mitral stenosis with peak and mean gradients of 29 and 13 mmHg respectively, and moderate pulmonary hypertension with RVSP of 56 mmHg. She required right thoracentesis for a large right pleural effusion (transudate). She notes that she has had increasing exertional dyspnea and lack of energy for some time. She denies orthopnea, or chest pain. On her admission she had fairly severe lower extremity edema which has resolved or improved with increase in diuretic dosing. This is a setting of severe obstructive sleep apnea, for which she is on BiPAP (). She carries a long-term diagnosis of asthma, for which she is on inhalers. In September she underwent a 6 minute walk test which revealed poor exercise tolerance but no desaturations on room air. A recent CT scan the chest revealed no evidence of PE; calcified thoracic aorta and visualized great vessels; and the right pleural effusion (which were was drained). She has a remote history of smoking. During her admission in September, she was found to be anemic and was transfused 1 unit of packed cells. Recent colonoscopy was performed and by her report shows several lesions which underwent cauterization and biopsy of polyp, for which pathology is pending. She's had no bleeding from the rectum. During her recent admissions she was also found to have chronic stable renal insufficiency with creatinine of 1.3. She is to see a legal billing analyst near future. This is a setting of obesity; diabetes; hypertension; hypercholesterolemia. PAST MEDICAL HISTORY Diagnosis Date - CAD (coronary artery disease) - Diabetes mellitus, type II (HCC) - Edema extremities - History of tobacco use - HLD (hyperlipidemia) - HTN (hypertension) - Morbid obesity with BMI of 40.0-44.9, adult ([facility]) - Nonrheumatic mitral (valve) stenosis - NSTEMI (non-ST elevated myocardial infarction) ([facility]) - LADI (obstructive sleep apnea) - Pleural effusion - Pulmonary HTN ([facility]) - TIA (transient ischemic attack) PAST SURGICAL HISTORY Procedure Laterality Date - CARPAL TUNNEL - CHOLECYSTECTOMY - ECHOCARDIOGRAM 09/17/2017 at [facility] - LEFT HEART CATH 06/25/2017 at [facility] - SHOULDER ARTHROSCOPY/SURG - TONSILLECTOMY AND ADENOIDECTOMY HX Current Outpatient Prescriptions on File Prior to Visit: VENTOLIN HFA 90 mcg/actuation inhaler Inhale 2 Puffs as instructed. ferrous sulfate 325 mg (65 mg iron) tablet Take 1 tablet by mouth twice daily. TAKE WITH FOOD. furosemide (LASIX) 40 mg tablet Take 40 mg by mouth twice daily. glipiZIDE (GLUCOTROL XL) 10mg 24 hr tablet Take 10 mg by mouth twice daily. lisinopril (ZESTRIL, PRINIVIL) 20 mg tablet Take 20 mg by mouth daily at bedtime. metoprolol tartrate, short acting, (LOPRESSOR) 50 mg tablet Take 50 mg by mouth once daily. Taking 25 mg in am AND 50 mg @ night montelukast (SINGULAIR) 10 mg tablet Take 10 mg by mouth once daily. KLOR-CON M20 20 mEq tablet Take 20 mEq by mouth once daily. simvastatin (ZOCOR) 20 mg tablet Take 20 mg by mouth daily at bedtime. traMADol (ULTRAM) 50 mg tablet Take 50 mg by mouth three times daily. traZODone (DESYREL) 50 mg tablet Take 50 mg by mouth daily at bedtime. BASAGLAR VALENTINPEN U-100 INSULIN 100 unit/mL (3 mL) inpn INJECT 80 UNITS SUB-Q (UNDER THE SKIN) ONCE DAILY aspirin, enteric coated (ASPIRIN, ENTERIC COATED) 81 mg EC tablet Take 81 mg by mouth once daily. No current facility-administered medications on file prior to visit. REVIEW OF SYSTEMS: GENERAL: Fever - No Chills - No Night sweats - No Changes in weight - No NEUROLOGICAL: Headaches - No Seizures - No Passing out - No History of stroke or mini-stroke - No Head injury or trauma - No Numbness, tingling or sensation of pins and needles - No HEAD, EYES, EARS, NOSE, AND THROAT: Changes in hearing - No Changes in vision - No Nose bleeds - No CARDIOVASCULAR: Chest pain or pressure - No Palpitations - No Valvular heart disease - Yes Severe mitral stenosis. High blood pressure - Yes Irregular heart rate - No Heart attack - Yes Recent non-STEMI. Heart failure - Yes Recent acute diastolic heart failure. High Cholesterol - Yes History of rheumatic fever - She denies, by suspect she has had rheumatic fever. History of Scarlet fever - No History of atrial fibrillation - No RESPIRATORY: Cough - No Wheezing - No Shortness of breath - No Shortness of breath with exertion - Yes Coughing up blood - No Asthma - Yes Bronchitis - No Blood clot in your lung - No GASTROINTESTINAL: Abdominal discomfort - No Nausea - No Vomiting - No Diarrhea - No Constipation - No Difficulty swallowing - No Pain with swallowing - No Stomach pain after eating - No Passing blood with bowel movement - No Black tarry stool - No History of stomach ulcers - No Acid reflux or heartburn - No GENITOURINARY: GENITOURINARY: EXTREMITY: Edema (swelling) - yes; improved with increased diuretic therapy. Intermittent claudication (pain with walking) - No MUSCULOSKELETAL: Joint pain - No Joint swelling - No Back pain - No Muscle pain or ache - No Skin: Rash - No Lesions - No Sores - No Ulcers - No Tenderness - No Skin cancer - No HEMATOLOGY: Bleeding disorder - No Easy bruising - No Anemia - TYES Cancer - No Blood transfusions - Yes During recent admission. Blood clots - No ENDOCRINE: Diabetes - Yes Thyroid disorder - No PSYCHOLOGICAL: Depression - No Anxiety - No OTHER: I have reviewed Heart Catherization, 2D echocardiogram, CT of Chest, Labs and Office note of Dr. Hearn. On examination, she appears well and is breathing comfortably. Vitals signs are BP 134/70 (BP Site: Right Arm, BP Position: Sitting) Pulse 64 Resp 16 Ht 5' 1 (1.549 m) Wt 218 lb (98.9 kg) SpO2 99% BMI 41.19 kg/m? . There is no JVD. No cervical or supraclavicular adenopathy is palpated. The chest is symmetrical without deformity. Breath sounds are clear bilaterally. The cardiac rhythm is regular. There are no rubs, gallops, or murmurs. The carotid, subclavian, and radial pulses are 2+ and equal bilaterally. The abdomen is soft and non-tender. There are no abdominal masses. There is no hepatojugular reflux. There is no pretibial edema. There is no clubbing or cyanosis. In summary, Dedra Lara is a 72-year-old woman with symptomatic severe mitral stenosis who was recently admitted with acute diastolic heart failure. She is now compensated. I suspect she's had rheumatic fever in the past. On my review the catheterization and echo is clear that she has extremely extensive calcification of the mitral annulus mitral leaflets and calcification extends into the ventricle. I wouldn't anticipate this to be a fairly difficult reconstruction replacement. That being the case, I'm recommending that she be evaluated at [facility] for mitral valve replacement. A bioprosthesis would be indicated given her age and history of recent GI bleeding. She will be seen a dentist in preparation for possible surgery. Mark Hollins MD Referring Provider: FLEX HEARN [[id number]] Allergies As of Date: 11/06/2017 Noted Allergy Reaction CEPHALEXIN 11/05/2017 6 - Diarrhea DOXYCYCLINE 2 - Rash HYDROCODONE BITARTRATE 11/05/2017 12 - Shortness of Breath INDOMETHACIN 11/05/2017 6 - Diarrhea KETOPROFEN 11/05/2017 6 - Diarrhea METFORMIN 11/05/2017 6 - Diarrhea NITROFURANTOIN 11/05/2017 12 - Shortness of Breath PENICILLINS 11/05/2017 4 - Hives PERCOCET (OXYCODONE-ACETAMINOPHEN)11/06/2017 2 - Rash SULFA (SULFONAMIDE ANTIBIOTICS) 11/05/2017 14 - Other: See Comments Comments: Sore tongue TIOTROPIUM 11/05/2017 12 - Shortness of Breath Date Reviewed: 11/06/2017 Reviewed by: Mark Hollins - Fully Assessed Reason for Visit: New Patient Evaluation [154] Cmt: Rfd by [facility] for Mitral Valve Stenosis. Primary Visit Diagnosis:Mitral valve stenosis, rheumatic [I05.0] Other Visit Diagnoses:Chronic diastolic CHF (congestive heart failure) (HCC) [I50.32] Mitral valve annular calcification [I05.9] Prescriptions as of 11/06/2017 Sig: VENTOLIN HFA 90 MCG/ACTUATION* Inhale 2 Puffs as instructed. FERROUS SULFATE 325 MG (65 MG* Take 1 tablet by mouth twice * FUROSEMIDE 40 MG TABLET Take 40 mg by mouth twice didi* GLIPIZIDE ER 10 MG TABLET, EX* Take 10 mg by mouth twice didi* LISINOPRIL 20 MG TABLET Take 20 mg by mouth daily at * METOPROLOL TARTRATE 50 MG TAB* Take 50 mg by mouth once william* MONTELUKAST 10 MG TABLET Take 10 mg by mouth once william* KLOR-CON M20 MEQ TABLET,EXTEN* Take 20 mEq by mouth once didi* SIMVASTATIN 20 MG TABLET Take 20 mg by mouth daily at * TRAMADOL 50 MG TABLET Take 50 mg by mouth three juan antonio* TRAZODONE 50 MG TABLET Take 50 mg by mouth daily at * BASAGLAR KWIKPEN U-100 INSULI* INJECT 80 UNITS SUB-Q (UNDER * ASPIRIN 81 MG TABLET,DELAYED * Take 81 mg by mouth once william* Problem List As Of Date: 11/06/2017 (None) Level of Service: NEW PATIENT VISIT LEVEL 4 [12215] Letter Text Encounter Status:Closed by MARK HOLLINS MD on 11/06/17 BASIC METABOLIC Collected: 11/05/2017 Status: F Source: [place] PROFILE (BMP) 8:02 AM [facility] REPOSITORY Order Comment: Order Date: 08/09/17 Order Info: 0667-1 - BMP Order Info: 97236-3 - LIPID TYPE CODE TESTS RESULT OUT OF RANGE REFERENCE UNITS LAB L501.0100 74-106 mg/dL Low GLU 62 Result Comment: Please note revised GLUCOSE reference range effective 2017. LAB L501.1000 7-18 mg/dL High BUN 19 LAB L501.1100 0.55-1.02 mg/dL High CREAT,SERUM 1.07 Result Comment: The validity of the calculated GFR AND GFRAA in patients over 70 years has not been determined. Clinical correlation is essential. LAB L501.1110 >60 mL/min Low EST GFR 53 Result Comment: Non- GFR Calc LAB L501.1115 >60 mL/min Normal EST GFR - AA 65 Result Comment: GFR Calc LAB L501.1300 10-20 RATIO Normal BUN/CRE 17.8 LAB L501.2200 8.5-10.1 mg/dL CA Normal 8.9 LAB L501.5300 136-145 mmol/L NA Normal 141 LAB L501.5600 3.5-5.1 mmol/L K Normal 3.6 LAB L501.5900 98-107 mmol/L CL Normal 106 LAB L501.6100 21.0-32.0 mmol/L Normal CO2 28.0 LAB L501.6200 5-15 Normal GAP 7 Performed By: #### L500.2500, L500.4100, L501.9985 #### [facility] [address] [place], [address] LIPID PROFILE Collected: 11/05/2017 Status: F Source: [place] 8:02 AM [facility] REPOSITORY Order Comment: Order Date: 08/09/17 Order Info: 0667-1 - BMP Order Info: 59392-0 - LIPID TYPE CODE TESTS RESULT OUT OF RANGE REFERENCE UNITS LAB L501.4900 200 mg/dL Normal CHOL 142 Result Comment: <200 mg/dL Desirable 200-240 mg/dL Borderline >240 mg/dL High Risk LAB L501.5000 mg/dL Normal TRIG 112 Result Comment: The drugs N-Acetylcysteine and Metamizole may falsely depress this assay. Serum Triglycerides Reference Interval Normal <150 mg/dL Borderline high 150 - 199 mg/dL High 200 - 499 mg/dL Very High > or = 500 mg/dL LAB L501.6400 mg/dL Normal HDL 55 Result Comment: The drugs N-Acetylcysteine and Metamizole may falsely depress this assay. Reference Range HDL <40 mg/dL Low HDL Cholesterol HDL >or= 60 mg/dL High HDL Cholesterol LAB L501.6500 0-130 mg/dL Normal LDL 65 LAB L501.6600 5-40 mg/dL Normal VLDL 22 Performed By: #### L500.2500, L500.4100, L501.9985 #### [place] [facility] [address] [place], [address] HEMOGLOBIN A1C Collected: 11/05/2017 Status: F Source: [place]BE[place] 8:02 AM [facility] REPOSITORY Order Comment: Order Date: 08/09/17 Order Info: [id number] - A1C TYPE CODE TESTS RESULT OUT OF RANGE REFERENCE UNITS LAB L501.9985 4.2-6.3 % Normal HGB A1C 6.0 Performed By: #### L500.2500, L500.4100, L501.9985 #### [facility] [address] [place], [address] OFFICE VISIT REPORT Observed: 11/04/2017 Status: F Source: [place] 2:48 PM [facility] REPOSITORY [facility] [address] [place] [address] OFFICE VISIT Date of Service: 10/30/17 MR#: [id number] Acct: [id number] Patient: DEDRA LARA Rep #: [id number] : 1945 Provider: Flex Hearn MD Age/Sex: 72/F [place] [facility] [place] Signed Intake Intake Visit Reasons: 2 wk bp ck per DJN Chief Complaint: Routine f/u Allergies doxycycline Allergy (Severe, Verified 10/17/17 13:08) Rash nitrofurantoin Allergy (Severe, Verified 10/17/17 13:08) asthma attack tiotropium [From Spiriva with HandiHaler] Allergy (Severe, Verified 10/17/17 13:08) difficulty breathing hydrocodone bitartrate [From Vicodin] Allergy (Verified 10/17/17 13:08) Shortness of breath Penicillins Allergy (Verified 10/17/17 13:08) Hives azithromycin Adverse Reaction (Intermediate, Verified 10/17/17 13:08) Diarrhea cephalexin Adverse Reaction (Intermediate, Verified 10/17/17 13:08) Diarrhea indomethacin [From Indocin] Adverse Reaction (Intermediate, Verified 10/17/17 13:08) Diarrhea ketoprofen [From Orudis] Adverse Reaction (Intermediate, Verified 10/17/17 13:08) Diarrhea metformin [From Glucophage] Adverse Reaction (Intermediate, Verified 10/17/17 13:08) Diarrhea sulfamethoxazole [From Septra] Adverse Reaction (Intermediate, Verified 10/17/17 13:08) sore tongue trimethoprim [From Septra] Adverse Reaction (Intermediate, Verified 10/17/17 13:08) sore tongue oxycodone HCl [From Percocet] Adverse Reaction (Verified 10/17/17 13:08) Rash Medications Glipizide [Glucotrol Xl] 10 mg PO BID 09/02/14 [History Confirmed 10/17/17] Aspirin [Aspirin, Baby] 81 mg PO DAILY 09/27/14 [History Confirmed 10/17/17] Montelukast [Singulair] 10 mg PO DAILY 09/21/15 [History Confirmed 10/17/17] Insulin Glargine,Hum.rec.anlog [Basaglar Kwikpen U-100] 75 unit SQ QHS 06/24/17 [History Confirmed 10/17/17] Lisinopril [Zestril] 20 mg PO QHS 06/24/17 [History Confirmed 10/17/17] Simvastatin [Zocor] 20 mg PO QHS 06/24/17 [History Confirmed 10/17/17] Symbicort 160-4.5 Mcg Inhaler 2 puff IH BID 06/24/17 [History Confirmed 10/17/17] traMADol [Ultram] 50 mg PO TID PRN 06/24/17 [History Confirmed 10/17/17] albuterol sulfate HFA 90 mcg/actuation aerosol inhaler 2 puff INHALATION Q4H PRN g 07/03/17 [History Confirmed 10/17/17] Docusate Sodium [Colace] 200 mg PO DAILY 09/16/17 [History Confirmed 10/17/17] traZODone [Desyrel] 50 mg PO QHS PRN 09/16/17 [History Confirmed 10/17/17] Ferrous Sulfate 325 mg PO BIDCM #60 tab 09/18/17 [Rx Confirmed 10/17/17] Loperamide [Imodium] 2 mg PO Q4H PRN PRN cap 09/18/17 [Rx Confirmed 10/17/17] metoprolol tartrate 25 mg tablet 25 mg PO .COMPLEX tab 10/15/17 [History Confirmed 10/17/17] metoprolol tartrate 50 mg tablet 50 mg PO .COMPLEX 10/15/17 [History Confirmed 10/17/17] furosemide 40 mg tablet 40 mg PO BID #180 tab 10/17/17 [Rx Confirmed 10/17/17] potassium chloride ER 20 mEq tablet,extended release(part/cryst) 20 meq PO QDAY #30 tab 10/30/17 [Rx] Nursing Note Patient here today for a blood pressure check. Her Lasix was increased to 40mg bid. BP today was 132/78, pulse 63, pulse ox 94%. She states her shortness of breath and edema has decreased since being on the increased dose of Lasix. Per Ani Herbert, patient is to begin Potassium 20meg daily and have lab work repeated in one week. Patient notified of the above and verbalized understanding. 11/04/17 1448 <Electronically signed by Flex Hearn MD> Date Flex Hearn MD Cosigner Signature: Date (if applicable) CC: FINAL SURGICAL Observed: 11/01/2017 Status: F Source: [facility] PATHOLOGY REPORT 10:58 [facility] REPOSITORY . Pathology Reports Accession: Collected Date/Time: Received Date/Time: Pathologist: [id number] 11/01/2017 10:58 EDT 11/04/2017 08:17 EDT MD MONIQUE CROOK Final Surgical Pathology Report DIAGNOSIS: DESCENDING COLON, BIOPSY: - TUBULAR ADENOMA. COMMENT: [facility]# [id number] CLINICAL INFORMATION: Procedure: COLONOSCOPY WITH ARGON PLASMA COAGULATION OF ARTERIOVENOUS MALFORMATION OF COLON Preoperative diagnosis: FE DEF ANEMIA Postoperative diagnosis: SAME SPECIMEN: A POLYP, DESCENDING COLON - BIOPSY OF GROSS DESCRIPTION: Received in formalin labeled descending colon polyp biopsy are 2 pemberton glistening soft tissues, 0.3 and 0.4 cm. TS -1 Dictated by Katie KRUSE ([facility]) MICROSCOPIC DESCRIPTION: Slides reviewed. Electronically Signed by Pathology Report verified by [facility] Electronically signed by MONIQUE CROOK MD Sign out Date: 11/05/2017 13:19 Performing Lab: [facility], [address] [place] [id number] [place] [address] Performed By: #### SPFR #### [address] [address] CAROTID DUPLEX Observed: 10/30/2017 Status: F Source: [place] ULTRASOUND 3:40 PM [facility] REPOSITORY [facility] Cardiovascular Services [address] [place] [address] Carotid Duplex Ultrasound 10/30/17 0859 MR#: [id number] Acct: [id number] Name: DEDRA LARA Rep #: [id number] : 1945 72 From: Dmitriy Palomino MD Attending Dr: Flex Hearn MD Status: REG CLI Ordering Dr: Flex Hearn MD Date: 10/30/17 Location: [facility] Sex: F C Admitted: Reason For Study: TIA Rt. Velocities/BP Lt. Velocities/BP Prox CCA 99.1/12.3 cm/sec. Prox CCA 117.0/16.5 cm/sec. Mid CCA 104.0/12.9 cm/sec. Mid CCA 124.0/16.5 cm/sec. Dist CCA 89.1/12.3 cm/sec. Dist CCA 102.0/16.5 cm/sec. Prox ICA 75.6/15.2 cm/sec. Prox ICA 112.0/18.1 cm/sec. Mid ICA 96.7/20.5 cm/sec. Mid ICA 107.0/17.3 cm/sec. Dist ICA 119.0/22.0 cm/sec. Dist ICA 131.0/21.2 cm/sec. Rt. ICA/CCA = 1.1. Lt. ICA/CCA = 1.1. Prox ECA 137.0/10.2 cm/sec. Prox ECA 160.0/14.9 cm/sec. Rt. Vert. 67.6/13.4 cm/sec. Lt. Vert. 63.9/9.3 cm/sec. Right Extracranial There is intimal thickening but no significant atherosclerotic plaque noted in the right common carotid artery. There is heterogeneous, irregular atherosclerotic plaque noted in the right internal carotid artery. There is heterogeneous, irregular atherosclerotic plaque noted in the right external carotid artery. Antegrade flow is noted in the right vertebral artery. Left Extracranial There is intimal thickening but no significant atherosclerotic plaque noted in the left common carotid artery. There is heterogeneous, irregular atherosclerotic plaque noted in the left internal carotid artery. There is heterogeneous, irregular atherosclerotic plaque noted in the left external carotid artery. Antegrade flow is noted in the left vertebral artery. Procedure Carotid Duplex [id number]. Exam performed in department. Interpretation Summary Mild (<50%) stenosis right extracranial internal carotid. Mild (<50%) stenosis left extracranial internal carotid. Flow within the vertebral arteries is antegrade bilaterally. Ordering Physician: Flex Hearn Referring Physician: Guillermina Stanton M.D. Performed By: Sary Cook RVT 10/30/17 1539 Date Dmitriy Palomino MD CC: Flex Hearn MD; Guillermina Stanton MD Date Dictated: 10/30/17 0859 Date Transcribed: 10/30/171538 Shift Boss: Signed BASIC METABOLIC Collected: 10/30/2017 Status: F Source: [facility] PROFILE (BMP) 8:50 AM [facility] REPOSITORY TYPE CODE TESTS RESULT OUT OF RANGE REFERENCE UNITS LAB L501.0100 74-106 mg/dL High GLU 165 Result Comment: Fasting Glucose result greater than or equal to 126 mg/dL suggests DIABETES MELLITUS per A.D.A. criteria. Please note revised GLUCOSE reference range effective 2017. LAB L501.1000 7-18 mg/dL High BUN 21 LAB L501.1100 0.55-1.02 mg/dL High CREAT,SERUM 1.20 Result Comment: The validity of the calculated GFR AND GFRAA in patients over 70 years has not been determined. Clinical correlation is essential. LAB L501.1110 >60 mL/min Low EST GFR 47 Result Comment: Non- GFR Calc LAB L501.1115 >60 mL/min Low EST GFR - AA 57 Result Comment: GFR Calc LAB L501.1300 10-20 RATIO Normal BUN/CRE 17.5 LAB L501.2200 8.5-10.1 mg/dL CA Normal 8.9 LAB L501.5300 136-145 mmol/L NA Normal 142 LAB L501.5600 3.5-5.1 mmol/L K Normal 3.6 LAB L501.5900 98-107 mmol/L CL Normal 106 LAB L501.6100 21.0-32.0 mmol/L Normal CO2 31.0 LAB L501.6200 5-15 Normal GAP 5 Performed By: #### L500.2500 #### [facility] [address] [place], [address] CARDIOLOGY VISIT Observed: 10/17/2017 Status: F Source: [place] REPORT 2:35 PM [facility] REPOSITORY [facility] [address] [place] [address] OFFICE VISIT Date of Service: 10/17/17 MR#: [id number] Acct: [id number] Name: DEDRA LARA Rep #: [id number] : 1945 Provider: Flex Hearn MD Age/Sex: 72/F Location[place] [facility] Status: Signed HPI HPI Chief Complaint: Routine f/u Details: Mrs. Lara is a very pleasant 72-year-old morbidly obese diabetic female, former smoker who quit about 13 years ago, with a history of hypertension, hypercholesterolemia, and coronary artery disease. Left heart catheterization on 09/03/14 via the right groin which demonstrated nonobstructive disease of her LAD in the range of 30%, a significant 70% stenosis at the bifurcation of a small inferior branch of the obtuse marginal as well as a very small superior branch area and this is most likely the culprit lesion. This vessels approximate 1.5 mm and had FOSTER-3 flow. Her RCA was a large dominant vessel with at most a 30% diffuse stenosis in the proximal midportion. Her LV angiogram appeared to be normal in 2 different views. Patient was treated medically. On 10/26/2015 the patient was admitted to [facility] with acute on recurrent visual disturbance is most likely related to an ocular migraine. TIA at that time was ruled out, MRI of the brain was negative for acute ischemic infarct, and the patient's blood pressure is elevated at that time and her lisinopril HCTZ was increased to 20/25 mg daily. In addition was determined that was actually an ocular migraine and she has been treated for that. Echocardiogram on 10/2015 demonstrated an estimated ejection fraction of 75%, moderate LVH, left atrium is severely enlarged, moderate mitral valve stenosis, trivial mitral and tricuspid valve insufficiency, RVSP estimated 42 mmHg. The patient had a formal polysomnogram on 01/06/2016 which did demonstrate severe obstructive sleep apnea and recommended BiPAP at 19/13 cm of water. More recently, in June 2017 she was admitted for a nstemi and underwent left heart catheterization on 06/25/17 which demonstrated hyperdynamic LV with an EF around 75%, nonobstructive coronary disease. In addition she admitted on 09/16/17 with congestive heart failure symptoms and a pleural effusion. She underwent an echocardiogram on 09/16/17 which showed severe mitral annular calcification, severe mitral stenosis with a peak/mean gradient of 29 and 30 mmHg respectively, moderate pulmonary hypertension with an RVSP of 56 mmHg. She underwent a right-sided thoracentesis and felt immediate relief. arrangements were being made for the patient undergo mitral valvular replacement surgery, but this was postponed due to the need for right-sided thoracentesis and now a GI bleed. She is awaiting a colonoscopy in the near future with Dr. Toscano. A recent chest x-ray dated 10/03/17 showed right basilar effusion with possible consolidation. She is awaiting consultation with Dr. Hollins back on [facility] for her mitral valve replacement surgery. Currently she is complaining of worsening shortness of breath, fatigue, tiredness, and worsening lower extremity edema. She is compliant with her medications. In our office today blood pressure is 120/56, pulse of 56and regular. Physical exam is as below. She has 2+ bilateral lower extremity edema, and decreased breath sounds over her right base. Lipids as of 03/26/16 show an LDL of 58 and HDL of 66. Her lipids as of 10/09/16 showed an HDL of 70 and LDL of 62. EKG dated 09/16/17 showed normal sinus rhythm, normal axis, normal intervals. Intake Vital Signs10/17/17 Height 5 ft 1 in 10/17/17 Weight: 224 lb 10/17/17 Body Mass Index (BMI) 42.3 10/17/17 Blood Pressure 120/56 Intake Visit Reasons: 4 WK S/P [facility] Allergies doxycycline Allergy (Severe, Verified 10/17/17 13:08) Rash nitrofurantoin Allergy (Severe, Verified 10/17/17 13:08) asthma attack tiotropium [From Spiriva with HandiHaler] Allergy (Severe, Verified 10/17/17 13:08) difficulty breathing hydrocodone bitartrate [From Vicodin] Allergy (Verified 10/17/17 13:08) Shortness of breath Penicillins Allergy (Verified 10/17/17 13:08) Hives azithromycin Adverse Reaction (Intermediate, Verified 10/17/17 13:08) Diarrhea cephalexin Adverse Reaction (Intermediate, Verified 10/17/17 13:08) Diarrhea indomethacin [From Indocin] Adverse Reaction (Intermediate, Verified 10/17/17 13:08) Diarrhea ketoprofen [From Orudis] Adverse Reaction (Intermediate, Verified 10/17/17 13:08) Diarrhea metformin [From Glucophage] Adverse Reaction (Intermediate, Verified 10/17/17 13:08) Diarrhea sulfamethoxazole [From Septra] Adverse Reaction (Intermediate, Verified 10/17/17 13:08) sore tongue trimethoprim [From Septra] Adverse Reaction (Intermediate, Verified 10/17/17 13:08) sore tongue oxycodone HCl [From Percocet] Adverse Reaction (Verified 10/17/17 13:08) Rash Medications Glipizide [Glucotrol Xl] 10 mg PO BID 09/02/14 [History Confirmed 10/17/17] Aspirin [Aspirin, Baby] 81 mg PO DAILY 09/27/14 [History Confirmed 10/17/17] Montelukast [Singulair] 10 mg PO DAILY 09/21/15 [History Confirmed 10/17/17] Insulin Glargine,Hum.rec.anlog [Oraliaaglar Kwikpen U-100] 75 unit SQ QHS 06/24/17 [History Confirmed 10/17/17] Lisinopril [Zestril] 20 mg PO QHS 06/24/17 [History Confirmed 10/17/17] Simvastatin [Zocor] 20 mg PO QHS 06/24/17 [History Confirmed 10/17/17] Symbicort 160-4.5 Mcg Inhaler 2 puff IH BID 06/24/17 [History Confirmed 10/17/17] traMADol [Ultram] 50 mg PO TID PRN 06/24/17 [History Confirmed 10/17/17] albuterol sulfate HFA 90 mcg/actuation aerosol inhaler 2 puff INHALATION Q4H PRN g 07/03/17 [History Confirmed 10/17/17] Docusate Sodium [Colace] 200 mg PO DAILY 09/16/17 [History Confirmed 10/17/17] traZODone [Desyrel] 50 mg PO QHS PRN 09/16/17 [History Confirmed 10/17/17] Ferrous Sulfate 325 mg PO BIDCM #60 tab 09/18/17 [Rx Confirmed 10/17/17] Loperamide [Imodium] 2 mg PO Q4H PRN PRN cap 09/18/17 [Rx Confirmed 10/17/17] metoprolol tartrate 25 mg tablet 25 mg PO .COMPLEX tab 10/15/17 [History Confirmed 10/17/17] metoprolol tartrate 50 mg tablet 50 mg PO .COMPLEX 10/15/17 [History Confirmed 10/17/17] furosemide 40 mg tablet 40 mg PO BID tab 10/17/17 [History Confirmed 10/17/17] [facility] Medical History History of non-ST elevation myocardial infarction (NSTEMI) (Chronic 06/25/17) Secondary pulmonary hypertension (Chronic) Personal history of transient ischemic attack (TIA), 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) Nonrheumatic mitral (valve) stenosis (Chronic) Other secondary pulmonary hypertension (Chronic) Atherosclerotic heart disease of [place] coronary artery without angina pectoris (Chronic) LADI (obstructive sleep apnea) (Chronic) History of tobacco use (Chronic) Hypertension (Chronic) Hyperlipidemia (Chronic) History of TIA (transient ischemic attack) (Chronic) Morbid obesity with BMI of 40.0-44.9, adult (Chronic) Type II diabetes mellitus (Chronic) Non-ST elevation (NSTEMI) myocardial infarction (Resolved 06/2017) Surgical History History of left heart catheterization (Chronic 06/25/17) H/O arthroscopy of shoulder (Resolved) History of carpal tunnel surgery (Resolved) History of cholecystectomy (Resolved) History of tonsillectomy and adenoidectomy (Resolved) Family History Father , Age 62 CAD (coronary artery disease) Diabetes Hypertension Mother Diabetes Social History Smoking Status: Former smoker how long ago did patient quit smokin, 1.5p/d second hand exposure: Yes alcohol intake: current alcohol intake frequency: holidays/special occasions only substance use type: does not use ROS Const Const: Negative for fatigue, weakness, body ache, fever(s), headache(s), chills, frequent falls, night sweats, daytime sleepiness, difficulty sleeping, excessive sweating, weight gain, weight loss, increased appetite, poor appetite, anorexia or other Eyes Eyes: Negative for blind spots, loss of peripheral vision, transient loss of vision, blurry vision, change in vision, double vision, floaters, tunnel vision or other ENT ENT: Negative for headache(s), dizziness, hearing loss, tinnitus, Nosebleed/epistaxis, balance problems, post nasal drip, lip swelling, tongue swelling, bleeding gums, hoarseness, neck pain, dry mouth or other Cardio Chest Pain: No Resp Respiratory: Negative for SOB with activity, SOB at rest, SOB orthopnea\SOB lying down, Coughing up blood/hemoptysis, chest congestion, pain on inspiration, snoring, stridor, wheezing, crackles, paroxysmal nocturnal dyspnea or other GI GI: Negative nausea, vomiting, heartburn, constipation, belching, bloating, cramping, vomiting blood/hematemesis, bright, red blood in stools, black,tarry stools, loose stools, Difficulty Swallowing or other : Negative for hematuria, frequent nighttime urination/ nocturia, erectile dysfunction or abnormal vaginal bleeding Musc Musc: Negative for balance problems, muscle aches/ myalgia, muscle weakness or joint pain Skin Skin: Negative redness, non-healing lesions, rash, unusual bruising, skin ulcer, wounds, jaundice or other Neuro Neuro: Negative for weakness, headache(s), frequent falls, blurry vision, double vision, dizziness, lightheadedness, near syncope, syncope, orthostatic symptoms, confusion, memory loss, restless legs, vertigo, seizures, lack of coordination or other Jesse Hematologic/Lymphatic: Negative for easy bleeding, easy bruising, enlarged lymph nodes or other Endo Endo: Negative for fatigue, excessive sweating, cold intolerance, heat intolerance, flushing, increased thirst/drinking, increased hunger, hair loss, hair growth or other Psych Psych: Negative for anxiety, depression, thoughts of harming anyone, thoughts of harming yourself, visual hallucinations, panic attacks or audible hallucinations Allergy Allergy/Immunology: Negative for lip swelling, Negative for tongue swelling, Negative for rash, Negative for throat swelling, Negative for hives Cardiology Exam Const Appearance: cooperative, healthy appearing and no acute distress Nutritional Appearance: well nourished Orientation: alert, oriented x3 and oriented to person Head Head: normal to inspection, atraumatic and normocephalic Nose: external nose normal Face and Sinus: face symmetric Mouth: oral mucosae normal Eyes General: appearance normal, both eyes and all related structures Eyelids: eyelids normal Conjunctivae: conjunctivae normal Pupils: PERRL and normal by confrontation EOM: EOM intact bilaterally Neck Neck: normal visual inspection and full ROM Carotids: normal carotid upstroke Chest Chest inspection: normal inspection of the chest Auscultation: Bilateral: Clear to Auscultation Cardio Palpation: normal PMI Rate: regular rate Rhythm: regular rhythm Heart sounds: S1 normal Murmur: Grade 2/6 and mid diastolic GI GI: normal to inspection, no hepatosplenomegaly and bowel sounds present Neuro General: alert, oriented x3, awake, CN's II-XI intact bilaterally and moves all extremities Skin Skin: no rashes or lesions noted Extremities Pulses: Normal: Right Femoral Pulse, Left Femoral Pulse, Right Dorsalis Pedis Pulse, Left Dorsalis Pedis Pulse, Right Posterior Tibial Pulse, Left Posterior Tibial Pulse, Right Radial Pulse, Left Radial Pulse Lower Extremity Edema: None: Bilateral Psych Psychological: normal affect Assessment AND Plan 1. Nonrheumatic mitral (valve) stenosis I34.2 Severe, with severe calcification per echo 09/16/2017 Plan 1. Mitral stenosis: Patient was recently admitted with right- sided pleural effusion, moderate pulmonary hypertension by echocardiogram, discovered severe mitral annular calcification, and what appears to be severe mitral stenosis in the face of hyperdynamic LV function and diastolic dysfunction. Patient has had worsening lower extremity edema, worsening dyspnea, and recurrence of her right-sided pleural effusion by recent x- ray on right-sided thoracentesis. 10/15/17. Patient has evidence of significant right-sided heart failure at this time I would recommend increasing her Lasix to 40 mg p.o. twice daily. I personally called Dr. Hollins's MANAGER CULINARY, Khai, and set up a CV surgery consultation later this month or early next month. In the meantime she will return in 2 weeks time for a blood pressure check and a BMP. If the patient's condition worsens, she may require admission for IV diuretic therapy or a repeat In the meantime she will continue her baby aspirin, Lasix 40 mg p.o. twice daily, lisinopril and metoprolol for her diastolic dysfunction and LV hypertrophy. In anticipation of her CV surgery and given her history of TIA we will obtain carotid ultrasound. 2. Other secondary pulmonary hypertension I27.29 Plan 2. Pulmonary hypertension: The patient has secondary pulmonary hypertension as a result of her severe mitral stenosis. We are awaiting completion of her GI workup with Dr. Toscano prior to referral to CV surgery. Her most recent hemoglobin on 10/03/17 was 10.1. Orders Orders: 3. Hyperlipidemia E78.5 Plan 3. Hyperlipidemia: Her LDL and HDL cholesterol are at goal. Continue Zocor. 4. Return office in 2 weeks for blood pressure check and 3 months to see me This note was generated using a voice recognition system and there may be incorrect words, spelling or punctuation that were not noted when reviewing the office note prior to saving. Plan Detail Other Orders Orders: Other Medications Changed: Follow Up +3M ([facility]) +2 weeks (BP and BMP) Coding Level of Care Code Off vis,est,level 3 Diagnoses Nonrheumatic mitral (valve) stenosis I34.2 Other secondary pulmonary hypertension I27.29 Hyperlipidemia E78.5 Coding Level of Care Code Off vis,est,level 3 Diagnoses Nonrheumatic mitral (valve) stenosis I34.2 Other secondary pulmonary hypertension I27.29 Hyperlipidemia E78.5 10/17/17 1435 <Electronically signed by Flex Hearn MD> Date Flex Hearn MD Cosigner Signature: Date (if applicable) CC: Guillermina Stanton MD CRP Collected: 10/16/2017 Status: F Source: [place] 11:12 AM [facility] REPOSITORY TYPE CODE TESTS RESULT OUT OF RANGE REFERENCE UNITS LAB L501.6710 0.0-3.0 mg/L High 4.64 C-REACTIVE PROT Result Comment: C-Reactive Protein (CRP) provides useful information for the diagnosis, therapy and monitoring of inflammatory processes and associated diseases. For the evaluation of Relative Risk for Cardiovascular Disease, a High Sensitivity CRP (HSCRP) should be ordered. Performed By: #### L501.6710, L503.6150, L503.6550 #### [facility] [address] [place], [place], [id number] IRON Collected: 10/16/2017 Status: F Source: [place] 11:12 AM [facility] REPOSITORY TYPE CODE TESTS RESULT OUT OF RANGE REFERENCE UNITS LAB L503.6150 50-170 ug/dL Normal IRON 68 Performed By: #### L501.6710, L503.6150, L503.6550 #### [facility] [address] [place], [place], [address] FERRITIN Collected: 10/16/2017 Status: F Source: [place] 11:12 AM [facility] REPOSITORY TYPE CODE TESTS RESULT OUT OF RANGE REFERENCE UNITS LAB L503.6550 8-252 ng/mL Normal FERRITIN 72 Performed By: #### L501.6710, L503.6150, L503.6550 #### [facility] [address] [place], [place], [id number] CELIAC DISEASE Collected: 10/16/2017 Status: F Source: [place] 11:12 AM [facility] REPOSITORY TYPE CODE TESTS RESULT OUT OF RANGE REFERENCE UNITS LAB L3200.1400 64-422 mg/dL Normal IMMUNO A 344 Result Comment: Performed at: - [facility] [address] [id number] [address] Roller Operator: Brendon Browning PhD, Phone: [phone] LAB L3328.3324 0-3 U/mL Normal tTG IGA <2 Result Comment: Negative 0 - 3 Weak Positive 4 - 10 Positive >10 Tissue Transglutaminase (tTG) has been identified as the endomysial antigen. Studies have demonstr- ated that endomysial IgA antibodies have over 99% specificity for gluten sensitive enteropathy. LAB L3410.1979 Negative Normal ENDOMYSIAL IGA Negative Performed By: #### L3410.2400 #### [facility] (refer to report for specific site) refer to report for address and phone number CHEST PA AND LATERAL Observed: 10/15/2017 Status: F Source: [place] 9:17 AM [facility] REPOSITORY [facility] Imaging Services [address] [place] [address] Chest PA and Lateral MR#: [id number] Acct: [id number] Name: DEDRA LARA Rep #: [id number] : 1945 F 72 From: Yg Cárdenas DO PCP: Guillermina Stanton MD Status: REG CLI Study: Chest PA and Lateral Date of Exam: 10/15/17 Exam# [id number] Ordering Dr: Angus Erickson MD STUDY: X-RAY CHEST REASON FOR EXAM: Female, 72 years old. Shortness of breath TECHNIQUE: Frontal and lateral views COMPARISON: October 03, 2017 FINDINGS: The lungs are expanded. Right basilar effusion with possible consolidation, similar to previous study. Normal size heart. Normal mediastinum and alfredo. Slightly prominent central pulmonary arteries. Calcified aortic arch and descending thoracic aorta. Degenerative changes of the thoracic spine. Normal visualized ribs, clavicles, and shoulders. There is no demonstrated abnormality of the visualized soft tissue structures of the upper abdomen. RAD/Chest PA and Lateral IMPRESSION: Right basilar effusion with possible consolidation, similar to previous study. Slightly prominent central pulmonary arteries. Electronically Signed: Yg Cárdenas DO at 20:49 EDT Tel [phone], Service support , CC: Angus Erickson MD; Guillermina Stanton MD Shift Boss: Signed PULMONARY VISIT REPORT Observed: 10/09/2017 Status: F Source: [place] 3:30 PM [facility] REPOSITORY [facility] [address] [place] [address] OFFICE VISIT Date of Service: 10/09/17 MR#: [id number] Acct: [id number] Name: DEDRA LARA Rep #: [id number] : 1945 Provider: Angus Erickson MD Age/Sex: 72/F [facility] Status: Signed Assessment AND Plan 1. Pleural effusion, transudate J94.8 Plan Patient with recent thoracentesis and removal of 1 L of transudate of fluid. Patient is thought to have significant mitral valve disorder. This will be evaluated by patient's primary kraft digester operator on October 17. Patient is open to surgery if this is necessary. From a surgical standpoint, patient can have any intervention that would be recommended from a pulmonary perspective. Did order a chest x-ray. Patient is to call if symptoms persist. Patient may require an outpatient thoracentesis. Therapeutic thoracentesis based on symptomatology. Obtain chest x-ray. Orders Orders: 2. Other secondary pulmonary hypertension I27.29 Plan Patient does have a history of secondary pulmonary hypertension. Patient reportedly has significant mitral regurgitation noted. Patient is to see cardiology next week for evaluation. Await workup and recommendations. Patient currently is off of Lasix therapy secondary to kidney concerns. This may need to be reinitiated. Patient was encouraged to check pulse oximeter readings frequently and call if saturations are less than 90%. Await cardiology recommendations. Frequent pulse ox checks. 3. LADI (obstructive sleep apnea) G47.33 Plan Patient reportedly has been compliant with LADI therapy. Compliance is somewhat fragmented given recent hospitalization. Stressed to the patient that this could add some relief with the pleural effusion. Patient voiced understanding. Patient has had significant weight gain, but this appears to be water weight. Encourage compliance with current settings. 4. Bronchiectasis without complication J47.9 Plan Patient's current pleural effusion is likely transudative in nature. However, stress to the patient the importance of using pulmonary toileting techniques to avoid infectious complications. Stressed to the patient that high volume status does need to opportunities for bacterial superinfection. Patient voiced understanding. Encourage pulmonary toileting twice daily. Plan Detail Follow Up 3 Months ([facility]) HPI 3 M FU: Chief Complaint: Shortness of breath on exertion Details: Patient is a 72-year-old female, currently in the care of Dr. Stanton, who presents for follow-up secondary to shortness of breath on exertion. Patient was recently hospitalized at [facility] and found to have a transient data pleural effusion. Patient did have a thoracentesis with removal of approximately 1 L of fluid. Patient reports that she was subjectively improved on discharge, but has noted worsening shortness of breath as time has progressed. Patient states she currently has an exercise tolerance of approximately 1 flight of steps. Patient states that she is to see Dr. Hearn on 17 October to discuss her mitral valve and possible interventions. Patient does report a cough that is dry with deep inhalation. Patient states that she is having occasional wheezing. Patient has been using Symbicort as directed without complication. Patient estimates Ventolin 2 times daily. Patient has attempted to achieve low-sodium diet. Patient does have an Acapella, but has not used it since discharge from the hospital. Patient has noted some numbness of the lower extremity, but attributes this to swelling. Patient also reports that Dr. Stanton has noted continued anemia. Patient has been scheduled to see Dr. Toscano for possible colonoscopy. Personally reviewed with the patient Complete PFT (09/27/2017): Irreversible moderate large airways obstructive ventilatory defect with symmetric reduction diffusing capacity (FVC 68%, FEV1 66%, TLC 100%, RV 137%, DLCO 45%) Walking oximetry (10/01/2017): Ambulated 483 feet over the course of 6 minutes with an oxygen ingrid of 94% Intake Vital Signs10/09/17 Height 5 ft 1 in 10/09/17 Weight: 100.698 kg Intake Visit Reasons: 3 M Manager Of Selection And Assessment Required: No Accompanied by: Self Is patient in pain?: No Allergies doxycycline Allergy (Severe, Verified 10/09/17 09:10) Rash nitrofurantoin Allergy (Severe, Verified 10/09/17 09:10) asthma attack tiotropium [From Spiriva with HandiHaler] Allergy (Severe, Verified 10/09/17 09:10) difficulty breathing hydrocodone bitartrate [From Vicodin] Allergy (Verified 10/09/17 09:10) Shortness of breath Penicillins Allergy (Verified 10/09/17 09:10) Hives azithromycin Adverse Reaction (Intermediate, Verified 10/09/17 09:10) Diarrhea cephalexin Adverse Reaction (Intermediate, Verified 10/09/17 09:10) Diarrhea indomethacin [From Indocin] Adverse Reaction (Intermediate, Verified 10/09/17 09:10) Diarrhea ketoprofen [From Orudis] Adverse Reaction (Intermediate, Verified 10/09/17 09:10) Diarrhea metformin [From Glucophage] Adverse Reaction (Intermediate, Verified 10/09/17 09:10) Diarrhea sulfamethoxazole [From Septra] Adverse Reaction (Intermediate, Verified 10/09/17 09:10) sore tongue trimethoprim [From Septra] Adverse Reaction (Intermediate, Verified 10/09/17 09:10) sore tongue oxycodone HCl [From Percocet] Adverse Reaction (Verified 10/09/17 09:10) Rash Medications Glipizide [Glucotrol Xl] 10 mg PO BID 09/02/14 [History Confirmed 09/16/17] Metoprolol Tartrate [Lopressor (beta rory)] 25 mg PO DAILY 09/02/14 [History Confirmed 09/16/17] Metoprolol Tartrate [Lopressor (beta rory)] 50 mg PO QHS 09/02/14 [History Confirmed 09/16/17] Aspirin [Aspirin, Baby] 81 mg PO DAILY 09/27/14 [History Confirmed 09/16/17] Montelukast [Singulair] 10 mg PO DAILY 09/21/15 [History Confirmed 09/16/17] Furosemide [Lasix] 40 mg PO QHS 06/24/17 [History Confirmed 09/16/17] Insulin Glargine,Hum.rec.anlog [Cristina Kennedy U-100] 75 unit SQ QHS 06/24/17 [History Confirmed 09/16/17] Lisinopril [Zestril] 20 mg PO QHS 06/24/17 [History Confirmed 09/16/17] Simvastatin [Zocor] 20 mg PO QHS 06/24/17 [History Confirmed 09/16/17] Symbicort 160-4.5 Mcg Inhaler 2 puff IH BID 06/24/17 [History Confirmed 09/16/17] traMADol [Ultram] 50 mg PO TID PRN 06/24/17 [History Confirmed 09/16/17] albuterol sulfate HFA 90 mcg/actuation aerosol inhaler 2 puff INHALATION Q4H PRN g 07/03/17 [History Confirmed 09/16/17] Docusate Sodium [Colace] 200 mg PO DAILY 09/16/17 [History Confirmed 09/16/17] traZODone [Desyrel] 50 mg PO QHS PRN 09/16/17 [History Confirmed 09/16/17] Ferrous Sulfate 325 mg PO BIDCM #60 tab 09/18/17 [Rx] Loperamide [Imodium] 2 mg PO Q4H PRN PRN cap 09/18/17 [Rx] Metoprolol Tartrate [Lopressor (beta rory)] 25 mg PO DAILY tab 09/18/17 [Rx] PFSH Medical History Personal history of transient ischemic attack (TIA), 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) Nonrheumatic mitral (valve) stenosis (Chronic) Other secondary pulmonary hypertension (Chronic) Atherosclerotic heart disease of [place] coronary artery without angina pectoris (Chronic) LADI (obstructive sleep apnea) (Chronic) History of tobacco use (Chronic) Hypertension (Chronic) Hyperlipidemia (Chronic) History of TIA (transient ischemic attack) (Chronic) Morbid obesity with BMI of 40.0-44.9, adult (Chronic) Type II diabetes mellitus (Chronic) Non-ST elevation (NSTEMI) myocardial infarction (Resolved 06/2017) Surgical History History of left heart catheterization (Chronic 06/2017) H/O arthroscopy of shoulder (Resolved) History of carpal tunnel surgery (Resolved) History of cholecystectomy (Resolved) History of tonsillectomy and adenoidectomy (Resolved) Family History Father CAD (coronary artery disease) Diabetes Hypertension Social History Smoking Status: Former smoker how long ago did patient quit smokin, 1.5p/d second hand exposure: Yes alcohol intake: current alcohol intake frequency: holidays/special occasions only substance use type: does not use Review of Systems Const CONSTITUTIONAL: Positive fatigue; negative anorexia, body ache, chills, daytime sleepiness, fever(s), night sweats, oral thrush, stops breathing during sleep, weight loss, sleeping in chair, weight loss, weight gain, frequent colds, seasonal allergies, other, headache(s) or orthopnea EETM Ear Nose Throat Mouth: Positive hearing normal; negative hard of hearing, hoarseness, dry mouth in morning, change in vision, itchy eyes, eye pain, swallowing Difficulty, ear pain, nose bleed, headache(s), mouth pain, nasal congestion, nasal discharge, post nasal drip, sinus pain, sinus pressure, sore throat or other Cardio Cardiovascular: Positive edema Location: lower extremity and murmur (Grade 2 out of 6 systolic ejection murmur); negative chest pain, chest pain at rest, chest pain with activity, irregular heart rhythm, shortness of breath when lying down, palpitations or other Resp Respiratory: Positive as per HPI, shortness of breath shortness of breath: Positive with activity, wheezing, cough cough: Positive non-productive and inhalers; negative pain with cough, chest congestion, chest tightness, pain on inspiration, increase use of rescue inhalers, snoring, apnea or other Gastro Gastrointestional: Negative bloody stools, change in appetite, difficulty swallowing, reflux, hematemesis, melena stool, loose stool, constipation or other Genitourinary: Negative blood in urine, nocturia, pain with urination or other Musc Musculoskeletal: Negative body pain, back pain, neck pain or other Skin/Breast Skin/Breast: Negative dry skin, itching, rash, unusual bruising, breast lump or other Neuro Neurological: Positive weakness; negative restless legs, confusion or other Psych Psychocological: Negative abnormal sleep pattern, anxiety, thoughts of hurting self/others, hopelessness or other Lymph Lymphatic: Negative easy bleeding, easy bruising, swollen lymph nodes or other Exam Const Constitutional: Positive conversant, cooperative, in no acute respiratory distress, well developed, well nourished, good hygiene and obese; negative wearing supplemental oxygen or ill appearing Head Head: Positive normocephalic and atraumatic; negative cyanosis of lips/distal nose, frontal sinus tenderness or maxillary sinus tenderness Eyes Eye: Positive clear conjunctiva; negative nystagmus, scleral abnormality or cataract present Ears Ear: Positive hearing normal and external ears normal; negative hard of hearing Nose Nose: Positive external nose normal, septum normal and no nasal discharge; negative epistaxis or nasal polyp Mouth Mouth: Positive oral mucosae normal, no lesions and crowded posterior oropharynx; negative post nasal drip, malodorous breath or oral thrush present Mallampati Score: IV: Mallampati Score Neck Neck: Positive normal visual inspection, full ROM, trachea midline and female neck greater than 37 cm (15 in); negative lymphadenopathy or JVD Chest Wall Chest: Positive normal inspection of the chest and symmetric chest movement; negative crepitus or tenderness Resp lung sounds: Positive dullness to percussion dullness: Yes right, Yes lower, diminished, normal expiratory time and normal respiratory effort; negative wheezes, rhonchi, rales, use of accessory muscles or wheeze present on forced exhalation Cardio Cardiac: Positive murmur (Grade 2 out of 6 systolic ejection murmur), regular rate, regular rhythm, S1 normal and S2 normal GI GI: Positive normal to inspection, normal bowel sounds and obese; negative distended, ascites or epigastric tenderness Genitourinary: Positive deferred Musc Musculoskeletal: Positive steady gait; negative using an assistive device for ambulation, kyphosis or scoliosis Skin Pulmonary Skin Exam: Positive intact and dermal atrophy; negative rash, lesion, ulcers, erythema or scaly Pulses Pulse: Yes radial pulses present Extremities Extremities: Yes capillary refill normal, No clubbing, No cyanosis, Yes edema (3+ lower extremity) Location: lower extremity Neuro Neurologic: Yes conversant, Yes normal coordination, Yes no focal neuro deficits, Yes normal concentration, Yes cooperative, Yes normal cognition Lymph Lymphatic: No lymphadenopathy Psych Appearance: Positive grossly normal Mental Status: Positive mental status grossly normal Mood: Positive congruent mood Affect: Positive normal affect Coding Level of Care Code Off vis,est,level 4 Diagnoses Pleural effusion, transudate J94.8 Other secondary pulmonary hypertension I27.29 LADI (obstructive sleep apnea) G47.33 Bronchiectasis without complication J47.9 Bronchiectasis type: uncomplicated 10/09/17 1530 <Electronically signed by Angus Erickson MD> Date Angus Erickson MD Cosigner Signature: Date (if applicable) CC: Guillermina Stanton MD CBC W/DIFF, AUTOMATED Collected: 10/03/2017 Status: F Source: [place] 9:11 AM [facility] REPOSITORY Order Comment: Order Date: 09/26/17 Order Info: 0184-1 - CBCD TYPE CODE TESTS RESULT OUT OF RANGE REFERENCE UNITS LAB L100.1000 4.4-11.0 K/mm3 Normal WBC 6.0 LAB L100.1200 4.2-5.4 M/mm3 Low RBC 3.20 LAB L100.1300 12.0-15.0 g/dl Low HGB 10.1 LAB L100.1400 37-47 % Low HCT 31.1 LAB L100.1500 81-99 fL Normal MCV 97.2 LAB L100.1600 27.0-32.0 pg Normal MCH 31.6 LAB L100.1700 32-36 g/gl Normal MCHC 32.5 LAB L100.1810 11.6-14.6 % High RDW CV 15.5 LAB L100.1820 35.1-43.9 fl High RDW SD 54.7 LAB L100.1900 150-450 K/mm3 Normal PLT 177 LAB L100.2000 6.2-12.0 fl Normal MPV 8.9 LAB L100.2100 47-70 % Normal NEUT% 55.2 LAB L100.2200 19-41 % Normal LY% 30.1 LAB L100.2300 0-10 % High MONO% 11.0 LAB L100.2400 0-5 % Normal EO% 2.8 LAB L100.2500 0-1 % Normal BASO% 0.7 LAB L100.2550 0.0-0.9 % Normal IM GRAN % 0.200 Result Comment: IG% - Immature Granulocytes (promyelocytes, myelocytes and metamyelocytes) > 1% indicates that a LEFT SHIFT is Present. LAB L100.2620 2.0-7.7 X10 3/uL Normal Absolute Neut 3.3 LAB L100.2720 0.83-4.51 X10 3/ul Normal Absolute Lymph 1.81 Performed By: #### L100.0100, L500.2500, L503.6550 #### [facility] [address] [place], [place], [address] BASIC METABOLIC Collected: 10/03/2017 Status: F Source: ABENA PROFILE (BMP) 9:11 AM [facility] REPOSITORY Order Comment: Order Date: 09/26/17 Order Info: 0667-1 - BMP Order Info: 2276-4 - LAUREEN TYPE CODE TESTS RESULT OUT OF RANGE REFERENCE UNITS LAB L501.0100 74-106 mg/dL Low GLU 58 Result Comment: Please note revised GLUCOSE reference range effective 2017. LAB L501.1000 7-18 mg/dL High BUN 26 LAB L501.1100 0.55-1.02 mg/dL High CREAT,SERUM 1.23 Result Comment: The validity of the calculated GFR AND GFRAA in patients over 70 years has not been determined. Clinical correlation is essential. LAB L501.1110 >60 mL/min Low EST GFR 45 Result Comment: Non- GFR Calc LAB L501.1115 >60 mL/min Low EST GFR - AA 55 Result Comment: GFR Calc LAB L501.1300 10-20 RATIO High BUN/CRE 21.1 LAB L501.2200 8.5-10.1 mg/dL CA Normal 9.2 LAB L501.5300 136-145 mmol/L NA Normal 144 LAB L501.5600 3.5-5.1 mmol/L K Normal 4.0 LAB L501.5900 98-107 mmol/L CL Normal 107 LAB L501.6100 21.0-32.0 mmol/L Normal CO2 29.0 LAB L501.6200 5-15 Normal GAP 8 Performed By: #### L100.0100, L500.2500, L503.6550 #### [facility] [address] [place], [address] FERRITIN Collected: 10/03/2017 Status: F Source: [place] 9:11 AM [facility] REPOSITORY Order Comment: Order Date: 09/26/17 Order Info: 0667-1 - BMP Order Info: 2276-4 - LAUREEN TYPE CODE TESTS RESULT OUT OF RANGE REFERENCE UNITS LAB L503.6550 8-252 ng/mL Normal FERRITIN 43 Performed By: #### L100.0100, L500.2500, L503.6550 #### [facility] [address] [place], [address] CHEST PA AND LATERAL Observed: 10/03/2017 Status: F Source: [place] 9:11 AM [facility] REPOSITORY [facility] Imaging Services [address] [address] Chest PA and Lateral MR#: [id number] Acct: [id number] Name: DEDRA LARA Rep #: [id number] : 1945 F 72 From: Saud Brown MD PCP: Guillermina Stanton MD Status: REG CLI Study: Chest PA and Lateral Date of Exam: 10/03/17 Exam# [id number] Ordering Dr: Corbin Montgomery DO STUDY: X-RAY CHEST REASON FOR EXAM: Female, 72 years old. Chest pain and cough, history of effusion TECHNIQUE: PA and lateral views of the chest. COMPARISON: 09/18/2017 FINDINGS: Left lung is expanded and free of superimposed process. Since the previous study, there has been increase in size of a right pleural effusion with associated atelectasis or interstitial edema. Follow-up recommended to assure resolution. Normal size heart. Normal mediastinum and alfredo. Normal visualized pulmonary arteries. There is atherosclerotic calcification of the aortic arch with tortuosity. There are diffuse degenerative changes of the visualized thoracic spine. Normal visualized ribs, clavicles, and shoulders. There is no demonstrated abnormality of the visualized soft tissue structures of the upper abdomen. RAD/Chest PA and Lateral IMPRESSION: Increase in size of the right pleural effusion since the previous study. There is associated atelectasis or interstitial edema. Follow-up recommended to assure resolution Left lung clear and well expanded Degenerative bony changes Electronically Signed: Colt Brown MD at 10:34 EDT , Service support , CC: Corbin Montgomery DO; Guillermina Stanton MD Shift Boss: Signed 6 MINUTE WALK TEST Observed: 10/01/2017 Status: F Source: [place] 8:46 AM [facility] REPOSITORY [facility] Pulmonary Services/Neurology [address] [place] [address] MR#: [id number] Acct: [id number] Name: DEDRA LARA Rep #: [id number] : 1945 72 From: Angus Erickson MD Referring Dr: Angus Erickson MD Date: Ordering Dr: Sex: F C Location: PSN PSN 6 Minute Walk Test - 6 Minute Walk Test 6 Minute Walk Test: 6 Minute Walk Test PSN:6-Minute Walk Test Start: 10/01/17 06:22 Freq: Status: Active Protocol: RESP.6MINW Document 09/30/17 12:30 SFENTON (Rec: 10/01/17 07:53 SFENTON [id number]) 6 Minute Walk Test Date Performed 10/01/17 Time Performed 12:35 Height 5 ft 1 in Weight: 101.151 kg Weight in Pounds 223.[address]: Angus Erickson Assistive device used: None Pre-test Oxygen Delivery Method Room Air Pulse Ox (%) 94 Pulse Rate (60-100 beats/min) 60 Dyspnea Michelet Scale (0-10) 0 Exertion Michelet Scale (6-20) 6 1st minute Oxygen Delivery Method Room Air Pulse Ox (%) 94 Pulse Rate (60-100 beats/min) 64 2nd minute Oxygen Delivery Method Room Air Pulse Ox (%) 97 Pulse Rate (60-100 beats/min) 67 Number of Rests Taken 1 Reported Symptoms Increased Work of Breathing 3rd minute Oxygen Delivery Method Room Air Pulse Ox (%) 95 Pulse Rate (60-100 beats/min) 71 Dyspnea Michelet Scale (0-10) 4 Number of Rests Taken 1 Reported Symptoms Increased Work of Breathing 4th minute Oxygen Delivery Method Room Air Pulse Ox (%) 93 Pulse Rate (60-100 beats/min) 74 5th minute Oxygen Delivery Method Room Air Pulse Ox (%) 94 Pulse Rate (60-100 beats/min) 75 Number of Rests Taken 1 Reported Symptoms Increased Work of Breathing 6th minute Oxygen Delivery Method Room Air Pulse Ox (%) 94 Pulse Rate (60-100 beats/min) 72 Dyspnea Michelet Scale (0-10) 5 Number of Rests Taken 1 Reported Symptoms Increased Work of Breathing Post-test Oxygen Delivery Method Room Air Pulse Ox (%) 97 Pulse Rate (60-100 beats/min) 63 Full Laps Walked 7 Partial Lap, Number of Tiles Walked 70 Total Distance Walked (ft) 483 - Interpretation Interpretation: The patient was able to ambulate only 483 feet over the course of 6 minutes on room air with no assistive devices, but did require for breaks secondary to leg weakness and pain. No significant desaturation or tachycardia was noted during testing. These findings are consistent with a musculoskeletal limitation exercise tolerance. - Recommendations Recommendations: No supplemental oxygen is indicated at this time. Patient may benefit from evaluation for peripheral vascular disease. 10/01/17845 <Electronically signed by Angus Erickson MD> Date Angus Erickson MD CC: Date Dictated: 10/01/17844 Date Transcribed: 10/01/17844 Shift Boss: Angus Erickson Signed PULMONARY FUNCTION Observed: 09/28/2017 Status: F Source: [place] TEST 7:41 AM [facility] REPOSITORY [facility] Pulmonary Services/Neurology [address] [place] [address] MR#: [id number] Acct: [id number] Name: DEDRA LARA Rep #: [id number] : 1945 72 From: Ranulfo Balderas DO Referring Dr: Angus Erickson MD Status: REG CLI Ordering Dr: Date: Location: [facility] Sex: F C INTRODUCTION: The patient is a 72-year-old female that presents for pulmonary function testing secondary to a diagnosis of bronchiectasis. Respiratory therapy reports good patient effort. Bronchodilators were used during testing. INTERPRETATION: Forced expiration spirometry demonstrates no evidence of a large airways obstructive ventilatory defect. There was no significant response to aerosolized bronchodilators. Spirograms are of good quality and plateau gradually. Body plethysmography was performed and reveals lung volumes to be within normal limits. Diffusing capacity by single breath CO is moderately reduced at 45% of predicted. IMPRESSION: These pulmonary function studies demonstrate the presence of an isolated moderate reduction in diffusing capacity, which could be related to an underlying pulmonary vascular disorder such as pulmonary hypertension. Clinical correlation is recommended. There are no previous pulmonary function studies available for comparison. 09/28/17740 <Electronically signed by Ranulfo Balderas DO> Date Ranulfo Balderas DO CC: Angus Erickson MD; Guillermina Stanton MD Date Dictated: 09/28/17738 Date Transcribed: 09/28/17738 Shift Boss: DB Signed 12 LEAD ELECTROCARDIOGRAM Observed: 09/19/2017 Status: F Source: [place] 1:22 PM [facility] REPOSITORY [facility] Cardiovascular Services [address] [place] [address] 12 Lead EKG 09/16/17 1345 MR#: [id number] Acct: [id number] Name: DEDRA LARA Rep #: [id number] : 1945 72 From: Richard Sprague MD Attending Dr: Corbin Montgomery DO Status: DIS IN Ordering Dr: Corbin Brizuela DO Date: 09/16/17 Location: [facility] Sex: F C Admitted: 09/17/17 Test Reason : SOB Blood Pressure : / mmHG Vent. Rate : 062 BPM Atrial Rate : 062 BPM P-R Int : 180 ms QRS Dur : 092 ms QT Int : 434 ms P-R-T Axes : 064 027 010 degrees QTc Int : 440 ms Normal sinus rhythm Poor R wave progression Confirmed by NIRMAL DONALDSON, RICHARD ([id number]), scientific publications editor NEFTALY STANTON ([id number]) on 09/19/2017 1:22:19 PM Referred By: RENNY/TIAN Confirmed By:RICHARD SPRAGUE MD 09/19/17 1322 Date Richard Sprague MD CC: Corbin Montgomery DO; Corbin Brizuela DO; Guillermina Stanton MD Signed BEDSIDE GLUCOSE Collected: 09/18/2017 Status: F Source: [place]BENA 5:15 PM [facility] REPOSITORY TYPE CODE TESTS RESULT OUT OF REFERENCE UNITS RANGE LAB L501.080 70-110 mg/dL High BEDSIDE GLU 233 Result Comment: MANAGEMENT OF PATIENT CARE PER NURSING PROTOCOL Performed By: #### L501.080 #### [facility] Point of Care [address] [place] [address] DISCHARGE SUMMARY Observed: 09/18/2017 Status: F Source: ABENA 5:13 PM [facility] REPOSITORY [facility] Medical Records Department [address] [place] [address] Discharge Summary 09/18/17 1709 MR#: [id number] Acct: [id number] Name: DEDRA LARA Rep #: [id number] : 1945 72 From: Corbin Montgomery DO PCP: Guillermina Stanton MD Status: ADM IN Location: MS3 [id number] Discharge Date and Diagnosis - Problem List Patient Problems: Active and Suspected Problems (Last Updated 07/15/17 @ 10:50 by Nathalia Keyes) Pleural effusion, transudate (Acute) Dyspnea on exertion (Acute) Date of Admission: 09/16/17 Date of Discharge: 09/18/17 - Primary Discharge Diagnosis Active and Suspected Problems (Last Updated 07/15/17 @ 10:50 by Nathalia Keyes) Pleural effusion, transudate (Acute) Dyspnea on exertion (Acute) - Secondary Discharge Diagnosis Chronic Problems (Last Updated 07/15/17 @ 10:50 by Nathalia Keyes) Anemia (Chronic) Personal history of transient ischemic attack (TIA), 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) Nonrheumatic mitral (valve) stenosis (Chronic) Other secondary pulmonary hypertension (Chronic) Atherosclerotic heart disease of [place] coronary artery without angina pectoris (Chronic) Chronic asthma (Chronic) Pulmonary nodules/lesions, multiple (Chronic) Bronchiectasis (Chronic) LADI (obstructive sleep apnea) (Chronic) History of tobacco use (Chronic) in remission, 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 Atelectasis and/or infiltrate at the left lung base. Radiographic follow-up is recommended. Electronically Signed: Edilson Vaughn MD at 15:11 EDT Tel [phone], Service support , Chest CTA 09/16/17 17:30 IMPRESSION: No demonstrated pulmonary embolism or arterial dissection. Moderately large right pleural effusion with associated consolidation/atelectasis of the right lung base. Nonspecific peripheral left lower lobe nodule. Subcentimeter mediastinal nodes. Additional abdominal findings as noted. Electronically Signed: Yg Cárdenas DO at 18:16 EDT Tel [phone], Service support , Thoracentesis Ultrasound 09/18/17 08:49 IMPRESSION: Ultrasound-guided right thoracentesis. Electronically Signed: Edilson Vaughn MD at 13:23 EDT Tel [phone], Service support , Chest X-Ray 09/18/17 11:39 IMPRESSION: Status post right thoracentesis. There is no evidence of pneumothorax. Electronically Signed: Edilson Vaughn MD at 12:39 EDT Tel [phone], Service support , Angus Erickson MD. Operations: - Procedures: 2-D Echocardiogram, Thoracentesis Summary of Care Provided: The patient is a 72 year old F presents with shortness of breath. Patient was never had toxic but was symptomatic. Patient did have a pleural effusion on her right side which appear to be chronic from previous chest x-rays. Additionally, patient was anemic with a hemoglobin of 7.6. The patient was also noted to have chronic kidney disease as well with initial creatinine of 1.3. So, patient was admitted and monitored. Seen in consultation by pulmonology. Patient did undergo an echocardiogram that showed an ejection fraction of 75%, moderate LVH, severely enlarged left atrium, mildly enlarged right atrium, moderate to severe mitral valve stenosis, right ventricular systolic pressure of 56. Patient did undergo the thoracentesis that appear to be transudate of which is likely cardiac in nature given the patient's mitral stenosis. And patient was transfused 1 unit of packed red blood cells given her shortness of breath and the possibility this being patient noted increased improvement of her breathing after the thoracentesis. It is my feeling the patient's shortness of breath is likely multifactorial, patient has a mitral stenosis plus the anemia plus the pleural effusion which I feel all played into her shortness of breath. It should be noted, however, that the patient was never hypoxic even with activity. Patient will be discharged today she will have an annual to verify that she is not hypoxic with activity. Patient will be instructed to follow-up with pulmonology in regards to further follow-up with her pleural effusion and have a follow-up chest x-ray in about a month's time. Follow-up with cardiology for her mitral stenosis and follow- up with nephrology for her chronic kidney disease. [] Discharge Diet: 1800 Calorie Control Diet, 8 Cup Fluid Restriciton, 2000 mg Sodium Diet Discharge Activity: Return to Normal Activity Call your doctor if you observe: Fever of 101 or Higher, Shortness of breath, Chest pain Home Medications: Medications to take at Discharge Glipizide [Glucotrol Xl] 10 mg PO BID 09/02/14 Metoprolol Tartrate [Lopressor (beta rory)] 25 mg PO DAILY 09/02/14 Metoprolol Tartrate [Lopressor (beta rory)] 50 mg PO QHS 09/02/14 Aspirin [Aspirin, Baby] 81 mg PO DAILY 09/27/14 Montelukast [Singulair] 10 mg PO DAILY 09/21/15 Furosemide [Lasix] 40 mg PO QHS 06/24/17 Insulin Glargine,Hum.rec.anlog [Basaglar Kwikpen U-100] 75 unit SQ QHS 06/24/17 Lisinopril [Zestril] 20 mg PO QHS 06/24/17 Simvastatin [Zocor] 20 mg PO QHS 06/24/17 Symbicort 160-4.5 Mcg Inhaler 2 puff IH BID 06/24/17 traMADol [Ultram] 50 mg PO TID PRN 06/24/17 albuterol sulfate HFA 90 mcg/actuation aerosol inhaler 2 puff INHALATION Q4H PRN g 07/03/17 Docusate Sodium [Colace] 200 mg PO DAILY 09/16/17 traZODone [Desyrel] 50 mg PO QHS PRN 09/16/17 Ferrous Sulfate 325 mg PO BIDCM #60 tab 09/18/17 Loperamide [Imodium] 2 mg PO Q4H PRN PRN capsule 09/18/17 Metoprolol Tartrate [Lopressor (beta rory)] 25 mg PO DAILY tablet 09/18/17 Following Prescrptions Were Given to Patient: Ferrous Sulfate 325 mg PO BIDCM #60 tab Other Amb Orders: Chest PA and Lateral [RAD] Time Frame: 1 Month, Location: None Selected Primary Care Physician: Guillermina Stanton MD [Primary Care Provider] - Within 2 Weeks Please Follow Up With: Angus Erickson MD - pulmonology When: 2-4 weeks Please Follow Up With: Mima Mata DO - nephrology When: 1-2 months Please Follow Up With: Flex Hearn MD - Cardiology When: 4-6 weeks Disposition: Home Minutes spent on discharge:: 35 Patient Condition:: Fair Medical Necessity - Tobacco Use Smoking Status: Former smoker Tobacco Use: Cigarettes Meaningful Use Info Meaningful Use Diagnoses (Choose all that apply): None applicable Code Visit Inpatient E AND M: 71614 Disch Hosp 09/18/17 1713 <Electronically signed by Corbin Montgomery DO> Date Corbin Montgomery DO Cosigner Signature (if applicable): Date CC: Angus Erickson MD; Flex Hearn MD; Corbin Montgomery DO; Guillermina Stanton MD Signed DISCHARGE INSTRUCTION Observed: 09/18/2017 Status: F Source: [place] 5:08 PM [facility] REPOSITORY [facility] Medical Records Department [address] [place] [address] Instructions for Home/Discharge Instructions 09/18/17 1706 MR#: [id number] Acct: [id number] Name: DEDRA LARA Rep #: [id number] : 1945 72 From: Corbin Montgomery DO PCP: Guillermina Stanton MD Status: ADM IN - Discharge Diagnoses Current Active Problems: Current Active and Chronic Problems (Last Updated 07/15/17 @ 10:50 by Nathalia Keyes) Dyspnea on exertion (Acute) Anemia (Chronic) You will use the following diet at home:: Calorie/Carbohydrate Controlled (specify 1200, 1400, etc) - 1800, Cardiac, Fluid restricted (specify 2000 mls, 1500 mls) - 2000 ml/day Your food should be the consistency of: Regular Your liquids should be the consistency of: Regular/Thin Discharge Activity: Return to Normal Activity Call your doctor if you observe: Fever of 101 or Higher, Shortness of breath, Chest pain Allergies/Adverse Reactions: Allergies doxycycline Allergy (Severe, Verified 09/16/17 13:01) Rash nitrofurantoin Allergy (Severe, Verified 09/16/17 13:01) asthma attack tiotropium [From Spiriva with HandiHaler] Allergy (Severe, Verified 09/16/17 13:01) difficulty breathing hydrocodone bitartrate [From Vicodin] Allergy (Verified 09/16/17 13:01) Shortness of breath Penicillins Allergy (Verified 09/16/17 13:01) Hives azithromycin Adverse Reaction (Intermediate, Verified 09/16/17 13:01) Diarrhea cephalexin Adverse Reaction (Intermediate, Verified 09/16/17 13:01) Diarrhea indomethacin [From Indocin] Adverse Reaction (Intermediate, Verified 09/16/17 13:01) Diarrhea ketoprofen [From Orudis] Adverse Reaction (Intermediate, Verified 09/16/17 13:01) Diarrhea metformin [From Glucophage] Adverse Reaction (Intermediate, Verified 09/16/17 13:01) Diarrhea sulfamethoxazole [From Septra] Adverse Reaction (Intermediate, Verified 09/16/17 13:01) sore tongue trimethoprim [From Septra] Adverse Reaction (Intermediate, Verified 09/16/17 13:01) sore tongue oxycodone HCl [From Percocet] Adverse Reaction (Verified 09/16/17 13:01) Rash Medications to take at Discharge Glipizide [Glucotrol Xl] 10 mg PO BID 09/02/14 Metoprolol Tartrate [Lopressor (beta rory)] 25 mg PO DAILY 09/02/14 Metoprolol Tartrate [Lopressor (beta rory)] 50 mg PO QHS 09/02/14 Aspirin [Aspirin, Baby] 81 mg PO DAILY 09/27/14 Montelukast [Singulair] 10 mg PO DAILY 09/21/15 Furosemide [Lasix] 40 mg PO QHS 06/24/17 Insulin Glargine,Hum.rec.anlog [Basaglar Kwikpen U-100] 75 unit SQ QHS 06/24/17 Lisinopril [Zestril] 20 mg PO QHS 06/24/17 Simvastatin [Zocor] 20 mg PO QHS 06/24/17 Symbicort 160-4.5 Mcg Inhaler 2 puff IH BID 06/24/17 traMADol [Ultram] 50 mg PO TID PRN 06/24/17 albuterol sulfate HFA 90 mcg/actuation aerosol inhaler 2 puff INHALATION Q4H PRN g 07/03/17 Docusate Sodium [Colace] 200 mg PO DAILY 09/16/17 traZODone [Desyrel] 50 mg PO QHS PRN 09/16/17 Ferrous Sulfate 325 mg PO BIDCM #60 tab 09/18/17 Loperamide [Imodium] 2 mg PO Q4H PRN PRN capsule 09/18/17 Metoprolol Tartrate [Lopressor (beta rory)] 25 mg PO DAILY tablet 09/18/17 The following prescriptions were given: Ferrous Sulfate 325 mg PO BIDCM #60 tab Orders to be completed after discharge: Chest PA and Lateral [RAD] Time Frame: 1 Month, Location: None Selected Primary Care Physician: Guillermina Stanton MD [Primary Care Provider] - Within 2 Weeks Test Results: Test results from this visit will be discussed in further detail at your follow-up appointment, if applicable. Please Follow Up With: Angus Erickson MD - pulmonology When: 2-4 weeks Please Follow Up With: Mima Mata DO - nephrology When: 1-2 months Please Follow Up With: Flex Hearn MD - Cardiology When: 4-6 weeks Proposed Discharge Date: 09/18/17 09/18/171707 <Electronically signed by Corbin Montgomery DO> Date Corbin Montgomery DO CC: Angus Erickson MD; Guillermina Stanton MD BEDSIDE GLUCOSE Collected: 09/18/2017 Status: F Source: [place] 12:31 PM [facility] REPOSITORY TYPE CODE TESTS RESULT OUT OF RANGE REFERENCE UNITS LAB L501.080 70-110 mg/dL Normal BEDSIDE GLU 107 Result Comment: MANAGEMENT OF PATIENT CARE PER NURSING PROTOCOL Performed By: #### L501.080 #### [facility] Point of Care [address] [place] [address] CYTOLOGY, BODY FLUID / Collected: 09/18/2017 Status: F Source: [place] CSF 11:52 AM [facility] REPOSITORY Order Comment: DONE TYPE CODE TESTS RESULT OUT OF RANGE REFERENCE UNITS LAB L350.1000 SEE Normal PATHOLOGY CYTOLOGY,BF REPORT /CSF Result Comment: Specimen submitted to Anatomical Pathology Department for testing. Performed By: #### L350.1000 #### [facility] [address] [place], [address] CHEST INSP/EXP 2 VIEW Observed: 09/18/2017 Status: F Source: [place]BENA 11:39 AM [facility] REPOSITORY [facility] Imaging Services [address] [place] [address] Chest Insp/Exp 2 View MR#: [id number] Acct: [id number] Name: DEDRA LARA Rep #: [id number] : 1945 F 72 From: Edilson Vaughn MD PCP: Guillermina Stanton MD Status: ADM IN Study: Chest Insp/Exp 2 View Date of Exam: 09/18/17 Exam# [id number] Ordering Dr: Edilson Vaughn MD STUDY: X-RAY CHEST REASON FOR EXAM: Female, 72 years old. Status post right thoracentesis. TECHNIQUE: AP inspiration and expiration views. COMPARISON: Comparison is made with prior study dated September 16, 2017. FINDINGS: The patient is status post right thoracentesis. There is no evidence of pneumothorax. The right pleural effusion has cleared. RAD/Chest Insp/Exp 2 View IMPRESSION: Status post right thoracentesis. There is no evidence of pneumothorax. Electronically Signed: Edilson Vaughn MD at 12:39 EDT Tel [phone], Service support , CC: Edilosn Vaughn MD; Guillermina Stanton MD Shift Boss: Signed BODY FLUID CELL Collected: 09/18/2017 Status: C Source: [place] COUNT+DIFF 11:30 AM [facility] REPOSITORY Order Comment: The reference range and other method performance specifications have not been established for this body fluid. The test must be integrated into the clinical context for interpretation. TYPE CODE TESTS RESULT OUT OF RANGE REFERENCE UNITS LAB L200.3380 0.000-0.000 10 3/ul High BFTC# 0.175 Result Comment: This is the Total Number of Nucleated Cell Types in the Body Fluid. LAB L200.3500 10 3/uL Normal 0.170 WBC/BF LAB L200.3510 % Normal 8.2 BF PMN WBC% LAB L200.3515 % Normal 91.8 BF MN WBC% LAB L200.3520 10 3/uL Normal 0.156 BF MN WBC# LAB L200.3525 10 3/uL Normal 0.014 BF PMN WBC# LAB L200.4400 Normal PATH COMM/BF Reviewed Result Comment: Negative for malignant cells. Please refer to cytology report ([id number]). David Hodge M.D. 09/20/17 AMENDED REPORT 09/20/17 1035 PATH COMM/BF previously reported as: May follow LAB L200.3100 SOURCE/BF THORACENTESIS Normal LAB L200.3200 COLOR/BF YELLOW Normal LAB L200.3300 APPEAR/BF CLEAR Normal LAB L200.3400 /mm3 RBC/BF 780 Normal LAB L200.4420 BFM 2ND SEE COMMENT Normal SPEC LAB L200.3600 % PMN 7 Normal LAB L200.3700 % LYMPH 73 Normal LAB L200.3800 % MONO/BF 18 Normal LAB L200.3900 % MESOTHELIAL 2 Normal Performed By: #### L200.0200 #### [facility] [address] [facility] [place], [place], [address] Observed: 09/18/2017 Status: F Source: [place] CULTURE, BODY FLUID 11:30 AM [facility] REPOSITORY Gram Stain Gram Stain No White Blood Cells No organisms seen Body Fluid Cult Culture exhibits no growth. Cult, Anaerobic No anaerobic bacteria isolated. Performed By: #### M100.1300 #### [facility] [address] [place], [address] TYPE AND SCREEN Collected: 09/18/2017 Status: F Source: [place] 9:08 AM [facility] REPOSITORY Order Comment: CMV NEG? N Number of units to transfuse: 1 Reason for Ordering Blood: Chronic Is there symptomatic anemia? Y Are the blood/blood products to be transfused? Y Is the patient having/had surgery? N Give When? When Ready Irradiated? N Leukodepleted? Y TYPE CODE TESTS RESULT OUT OF RANGE REFERENCE UNITS LAB B10.0800 B Normal BLOOD TYPE GEL NEGATIVE LAB B100.4000 Normal Antibody NEGATIVE Screen Performed By: #### B101.7450 #### [facility] [address] [place], [address] RC Collected: 09/18/2017 Status: F Source: [place] 9:08 AM [facility] REPOSITORY TYPE CODE TESTS RESULT OUT OF REFERENCE UNITS RANGE LAB U100.0000 [id number] TRANSFUSED PRODUCT: T AND S with Crossmatch, Red Cells COUNT: 1 Performed By: #### U100.0000 #### Non-[facility] - refer to report for specific site BEDSIDE GLUCOSE Collected: 09/18/2017 Status: F Source: [place] 6:00 AM [facility] REPOSITORY TYPE CODE TESTS RESULT OUT OF RANGE REFERENCE UNITS LAB L501.080 70-110 mg/dL Normal BEDSIDE GLU 107 Result Comment: MANAGEMENT OF PATIENT CARE PER NURSING PROTOCOL Performed By: #### L501.080 #### [facility] Point of Care [address] [place] [address] CBC W/DIFF, AUTOMATED Collected: 09/18/2017 Status: F Source: [place] 5:20 AM [facility] REPOSITORY TYPE CODE TESTS RESULT OUT OF RANGE REFERENCE UNITS LAB L100.1000 4.4-11.0 K/mm3 Normal WBC 5.4 LAB L100.1200 4.2-5.4 M/mm3 Low RBC 2.47 LAB L100.1300 12.0-15.0 g/dl Low HGB 7.6 LAB L100.1400 37-47 % Low HCT 24.1 LAB L100.1500 81-99 fL Normal MCV 97.6 LAB L100.1600 27.0-32.0 pg Normal MCH 30.8 LAB L100.1700 32-36 g/gl Low MCHC 31.5 LAB L100.1810 11.6-14.6 % Normal RDW CV 13.7 LAB L100.1820 35.1-43.9 fl High RDW SD 45.1 LAB L100.1900 150-450 K/mm3 Normal PLT 170 LAB L100.2000 6.2-12.0 fl Normal MPV 9.5 LAB L100.2100 47-70 % Normal NEUT% 54.5 LAB L100.2200 19-41 % Normal LY% 28.7 LAB L100.2300 0-10 % High MONO% 12.8 LAB L100.2400 0-5 % Normal EO% 3.4 LAB L100.2500 0-1 % Normal BASO% 0.4 LAB L100.2550 0.0-0.9 % Normal IM GRAN % 0.200 Result Comment: IG% - Immature Granulocytes (promyelocytes, myelocytes and metamyelocytes) > 1% indicates that a LEFT SHIFT is Present. LAB L100.2620 2.0-7.7 X10 3/uL Normal Absolute Neut 2.9 LAB L100.2720 0.83-4.51 X10 3/ul Normal Absolute Lymph 1.54 Performed By: #### L100.0100 #### [facility] [address] [place], [place], [address] BASIC METABOLIC Collected: 09/18/2017 Status: F Source: [place] PROFILE (BMP) 5:20 AM [facility] REPOSITORY TYPE CODE TESTS RESULT OUT OF RANGE REFERENCE UNITS LAB L501.0100 74-106 mg/dL Normal GLU 89 Result Comment: Please note revised GLUCOSE reference range effective 2017. LAB L501.1000 7-18 mg/dL High BUN 32 LAB L501.1100 0.55-1.02 mg/dL High CREAT,SERUM 1.24 Result Comment: The validity of the calculated GFR AND GFRAA in patients over 70 years has not been determined. Clinical correlation is essential. LAB L501.1110 >60 mL/min Low EST GFR 45 Result Comment: Non- GFR Calc LAB L501.1115 >60 mL/min Low EST GFR - AA 55 Result Comment: GFR Calc LAB L501.1255 ml/min Normal Estimated CRCL 30.49 LAB L501.1300 10-20 RATIO High BUN/CRE 25.8 LAB L501.2200 8.5-10 mg/dL Normal .1 CA 8.5 LAB L501.5300 136-14 mmol/L Normal 5 NA 143 LAB L501.5600 3.5-5. mmol/L Normal 1 K 4.4 LAB L501.5900 98-107 mmol/L Normal CL 107 LAB L501.6100 21.0-3 mmol/L Normal 2.0 CO2 26.0 LAB L501.6200 5-15 Normal GAP 10 Performed By: #### L500.2500 #### [facility] [address] [place], [address] FLUID/WASHING Observed: 09/18/2017 Status: F Source: [place] 12:00 AM [facility] REPOSITORY Patient: DEDRA LARA : 1945 (72/F) Acct Num: [id number] Phys: Corbin Montgomery DO Unit Num: [id number] Loc: MS3 [id number] Specimen: [id number] Received: 09/18/17 - 1352 Spec Type: Fluid TISSUES TISSUES: THORACIC FLUID CYTOLOGY GROSS Received is 70 ml of yellow cloudy fluid labeled with the patient's name and and designated per the requisition as thoracentesis. Submitted for cytology preparation including cell block. / 09/18/17 TC:5 CPT: 22214, 79686 CYTOLOGY STUDY Slides are reviewed. The specimen consists of macrophages, mesothelial cells, inflammatory cells and red blood cells. DIAGNOSIS CYTOLOGY Thoracentesis fluid for cytology (cytospin and cell block): Negative for malignant cells. SJ:chris 09/19/17 HEADER OPERATION: Ultrasound-guided right thoracentesis PRE-OP DIAGNOSIS: Short of breath, dyspnea TISSUE SUBMITTED: Thoracentesis fluid for cytology Signed David Hodge 09/19/17 <signature on file> Performed By: #### PFLU #### [facility] [address] [place], [address] BEDSIDE GLUCOSE Collected: 09/17/2017 Status: F Source: [place] 10:26 PM [facility] REPOSITORY TYPE CODE TESTS RESULT OUT OF REFERENCE UNITS RANGE LAB L501.080 70-110 mg/dL High BEDSIDE GLU 166 Result Comment: MANAGEMENT OF PATIENT CARE PER NURSING PROTOCOL Performed By: #### L501.080 #### [facility] Point of Care [address] [place] [address] ECHOCARDIOGRAM COMPLETE Observed: 09/17/2017 Status: F Source: [place] 3:45 PM [facility] REPOSITORY [facility] Cardiovascular Services [address] [place] [address] Echo Complete 09/17/17 0824 MR#: [id number] Acct: [id number] Name: DEDRA LARA Rep #: [id number] : 1945 72 From: Richard Sprague MD Attending Dr: Corbin Montgomery DO Status: ADM IN Ordering Dr: Vanessa Osuna Date: 09/16/17 Location: MS3 Sex: F C Admitted: 09/17/17 Reason For Study: SOB Procedure This was a 2D Doppler, Color Flow transthoracic echocardiogram. The exam was of fair technical quality due to body habitus. Exam performed portable in patient room. Left Ventricle Normal LV size. Moderate concentric left ventricular hypertrophy. Left ventricular systolic function is hyperdynamic. The estimated ejection fraction is 75 %. Right Ventricle Normal RV size. Normal systolic function. Atria The left atrium is severely enlarged. The right atrium is mildly enlarged. No doppler evidence for ASD. Mitral Valve There is severe mitral annular calcification. Extension of the mitral annular calcification onto the mitral valve leaflet with partial leaflet restriction. Moderate - Severe mitral valve stenosis. Trivial mitral valve insufficiency. Tricuspid Valve Normal tricuspid valve. Trivial tricuspid valve insufficiency. Right ventricular systolic pressure estimated to be 56 mmHg. Aortic Valve Trisinus/trileaflet aortic valve. Mild focal aortic valve calcification. Pulmonic Valve The pulmonic valve is not well visualized. Great Vessels Normal sized aortic root. Pericardium/Pleural No pericardial effusion. MMode/2D Measurements AND Calculations LVIDd: 4.4 cm IVSd: 1.4 cm Ao root diam: 2.9 cm LVIDs: 2.1 cm LVPWd: 1.4 cm LA dimension: 5.0 cm FS: 52.3 % LAV(MOD-bp): 136.9 ml LA A4 area: 35.9 cm2 RA A4 area: 20.8 cm2 LAV(MOD-bp) Indexed: 69.2 ml/m2 LAV(MOD-sp2): 131.9 ml LAV(MOD-sp4): 146.0 ml Doppler Measurements AND Calculations MV E max sylvester: 311.1 cm/sec Lat Peak E' Sylvester: 5.4 cm/sec Med Peak E' Sylvester: 5.0 cm/sec MV A max sylvester: 191.5 cm/sec E/E' lat: 58.0 E/E' med: 61.7 MV E/A: 1.6 MV V2 max: 266.8 cm/sec MV P1/2t max sylvester: 263.5 cm/sec Ao V2 max: 215.5 cm/sec MV max P.5 mmHg MV P1/2t: 121.8 msec Ao max P.6 mmHg MV V2 mean: 172.9 cm/sec MV dec slope: 633.8 cm/sec2 Ao V2 mean: 152.6 cm/sec MV mean P.1 mmHg MVA(P1/2t): 1.8 cm2 Ao mean P.3 mmHg MV V2 VTI: 85.2 cm Ao V2 VTI: 44.3 cm PA V2 max: 142.2 cm/sec TR max sylvester: 346.6 cm/sec TR max P.4 mmHg Interpretation Summary Left ventricular systolic function is hyperdynamic. The estimated ejection fraction is 75 %. Moderate concentric left ventricular hypertrophy. The left atrium is severely enlarged. The right atrium is mildly enlarged. There is severe mitral annular calcification. Extension of the mitral annular calcification onto the mitral valve leaflet with partial leaflet restriction. Moderate - Severe mitral valve stenosis. Trivial mitral valve insufficiency. Trivial tricuspid valve insufficiency. Mild focal aortic valve calcification. Right ventricular systolic pressure estimated to be 56 mmHg. Transmitral diastolic flow velocities suggest diastolic dysfunction (pseudonormal pattern). Late peaking spectral doppler pattern in the mid LV cavity to LVOT area approaching 2 m/s (PG of 16 mmHg) c/w a hyperdynamic state. Ordering Physician: KIAN Baer Referring Physician: Guillermina Stanton M.D. Performed By: Chrissy Emmanuel RDCS 09/17/17 1545 Date Richard Sprague MD CC: SANITARIAN-Ricardo Osuna; Corbin Montgomery DO; Guillermina Stanton MD Date Dictated: 09/17/17 0824 Date Transcribed: 09/17/17 1545 Shift Boss: Signed BEDSIDE GLUCOSE Collected: 09/17/2017 Status: F Source: [place] 3:32 PM [facility] REPOSITORY TYPE CODE TESTS RESULT OUT OF REFERENCE UNITS RANGE LAB L501.080 70-110 mg/dL High BEDSIDE GLU 194 Result Comment: MANAGEMENT OF PATIENT CARE PER NURSING PROTOCOL Performed By: #### L501.080 #### [facility] Point of Care [address] [place], [place] [address] GLUCOSE, BODY FLUID Collected: 09/17/2017 Status: F Source: [place] 11:52 AM [facility] REPOSITORY TYPE CODE TESTS RESULT OUT OF RANGE REFERENCE UNITS LAB L503.0100 40-70 mg/dL High GLU,BF 113 Performed By: #### L503.0100, L503.0300, L504.0250 #### [facility] [address] [place], [address] PROTEIN, BODY FLUID Collected: 09/17/2017 Status: F Source: [place] 11:52 AM [facility] REPOSITORY TYPE CODE TESTS RESULT OUT OF RANGE REFERENCE UNITS LAB L503.0300 Not Establ. g/dL Normal 1.3 PROTEIN,BF Performed By: #### L503.0100, L503.0300, L504.0250 #### [facility] [address] [place], [address] LDH,BODY FLUID Collected: 09/17/2017 Status: F Source: [place] 11:52 AM [facility] REPOSITORY TYPE CODE TESTS RESULT OUT OF RANGE REFERENCE UNITS LAB L504.0250 Not Establ. Units/l Normal LDH,BF 52 Performed By: #### L503.0100, L503.0300, L504.0250 #### [facility] [address] [place], [address] CONSULTATION Observed: 09/17/2017 Status: F Source: [place] 11:46 AM [facility] REPOSITORY [facility] Medical Records Department [address] [place] [address] Consultation 09/17/17 0847 MR#: [id number] Acct: [id number] Name: DEDRA LARA Rep #: [id number] : 1945 72 From: Marti Chisholm SANITARIAN-C PCP: Guillermina Stanton MD Status: ADM KEVEN Y Location: PR3 VB141-0 ADDENDUM by Angus Erickson MD on 09/17/17 at 1146 Code Visit Patient seen and examined independently in conjunction with nurse practitioner. All data, including note below, was personally reviewed and I agree with the added comments. In brief, patient is well-known to me from outpatient office and presented to [facility] emergency department on 09/16/2017 with complaints of progressive dyspnea over the last week. Patient was not reporting a lot of concomitant symptoms, but was admitted to the hospital for further evaluation. After admission to the hospital, patient was found to have an enlarging right pleural effusion without leukocytosis. Patient did have an anemia and a slightly elevated BNP at 244. No PE was appreciated on the CT scan of the chest, but there were some liver abnormalities appreciated. Patient continues to have bronchiectasis. Physical exam was and apparently performed and I agree as listed below. Patient is obese, but speaking in full sentences. Patient does have some dullness to percussion at the right base and rales are noted bilaterally. No murmur was appreciated on heart exam. Patient did have trace to 1+ bilateral pedal edema. Laboratory and imaging was discussed above. Assessment and plan Patient has etiology for both transudate and exudate given bronchiectasis, known nodules, mitral valve calcification and abnormal appearing liver. Patient should have a diagnostic and therapeutic thoracentesis followed by a walking oximetry. If able to tolerate room air, patient can likely be discharged with follow-up as an outpatient. Patient does have an appointment with me on October 09 already scheduled. Further recommendations following completion of thoracentesis. Inpatient E AND M: [id number] Init Hosp L3 09/17/17 1146 <Electronically signed by Angus Erickson MD> Date Angus Erickson MD cc: Angus Erickson MD; Guillermina Stanton MD * Signed Problem List (1) Pleural effusion Status: Acute (2) Dyspnea on exertion Status: Acute (3) Pulmonary nodules/lesions, multiple Status: Chronic (4) Anemia Status: Chronic (5) LADI (obstructive sleep apnea) Status: Chronic (6) Nonrheumatic mitral (valve) stenosis Status: Chronic (7) Other secondary pulmonary hypertension Status: Chronic (8) Atherosclerotic heart disease of [place] coronary artery without angina pectoris Status: Chronic (9) Chronic asthma Status: Chronic Qualifiers: Asthma severity: moderate Asthma persistence: persistent Asthma complication type: uncomplicated Qualified Code(s): J45.40 - Moderate persistent asthma, uncomplicated (10) Bronchiectasis Status: Chronic Qualifiers: Bronchiectasis type: uncomplicated Qualified Code(s): J47.9 - Bronchiectasis, uncomplicated (11) History of tobacco use Status: Chronic Comment: in remission, 66-pk-yr history (12) Hypertension Status: Chronic (13) Hyperlipidemia Status: Chronic (14) History of TIA (transient ischemic attack) Status: Chronic (15) Morbid obesity with BMI of 40.0-44.9, adult Status: Chronic (16) Type II diabetes mellitus Status: Chronic Reason for Consult Date of Consultation: 09/17/17 Reason for Consultation: dyspnea History of Present Illness: The patient is a 72 year old F with past medical history as below, known to Dr. Erickson in the pulmonary clinic, presented to the ED on 09/16/17 with complaints of progressive dyspnea with exertion over the last approximately 1 week. Patient reports she is always short of breath but has been worse lately. She is currently undergoing outpatient workup in the pulmonary clinic and is awaiting her pulmonary function tests and pulmonary stress test later this month. She also had a follow-up CT scheduled for 09/26/17 for her multiple pulmonary nodules discovered during her last admission in June. The patient denies any associated symptoms, no cough, sputum production, dizziness, hemoptysis, fevers or chills, nausea, vomiting, or diarrhea. Denies sore throat or upper respiratory symptoms. She has not required any steroids or antibiotics recently, no hospitalizations since June when she was here with chest pain and had a heart catheterization that did not show any significant stenosis. Patient notes she has eliminated salt from her diet and is compliant with diuretic therapy. Just at her last admission to have a thoracentesis, however she declined at that time. She does have a lot of anxiety associated with the procedure. Initial vitals BP 156/107, pulse 70, RR 20, 98.1 F, 95% on room air. Chest x-ray showed a small right pleural effusion with underlying infiltration and/or atelectasis. Also atelectasis and/or infiltrate at the left lung base. Initial lab work did not show a leukocytosis. Hemoglobin was 8.6 with hematocrit 27.6. Chemistry remarkable for a BUN of 31 and creatinine 1.39. Glucose elevated at 195. BNP 244. Albumin low at 2.8. A d-dimer was elevated at 2.83, so CTA of the chest was obtained and showed no evidence of PE or dissection, a moderately large right pleural effusion with associated consolidation/atelectasis at the right lung base, nonspecific peripheral LLL nodule, subcentimeter mediastinal nodes, possible cirrhosis, thyroid nodular lesions bilaterally, and a partially seen subcutaneous nodule within the right neck. The patient was given IV fluids in the ED and transferred to the medical surgical floor for further evaluation and management. She has not required any oxygen supplementation. She has remained afebrile and hemodynamically stable. Past Medical History Past Medical History (Chronic Problems): Chronic Problems (Last Updated 07/15/17 @ 10:50 by Nathalia Keyes) Anemia (Chronic) Personal history of transient ischemic attack (TIA), 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) Nonrheumatic mitral (valve) stenosis (Chronic) Other secondary pulmonary hypertension (Chronic) Atherosclerotic heart disease of [place] coronary artery without angina pectoris (Chronic) Chronic asthma (Chronic) Pulmonary nodules/lesions, multiple (Chronic) Bronchiectasis (Chronic) LADI (obstructive sleep apnea) (Chronic) History of tobacco use (Chronic) in remission, 66-pk-yr history Hypertension (Chronic) Hyperlipidemia (Chronic) History of TIA (transient ischemic attack) (Chronic) Morbid obesity with BMI of 40.0-44.9, adult (Chronic) Type II diabetes mellitus (Chronic) Medical History: Medical History (Last Updated 07/15/17 @ 10:50 by Nathalia Keyes) Personal history of transient ischemic attack (TIA), 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) Z86.73 Nonrheumatic mitral (valve) stenosis (Chronic) I34.2 Other secondary pulmonary hypertension (Chronic) I27.29 Atherosclerotic heart disease of [place] coronary artery without angina pectoris (Chronic) I25.10 LADI (obstructive sleep apnea) (Chronic) G47.33 History of tobacco use (Chronic) Z87.891 in remission, 66-pk-yr history Hypertension (Chronic) I10 Hyperlipidemia (Chronic) E78.5 History of TIA (transient ischemic attack) (Chronic) Morbid obesity with BMI of 40.0-44.9, adult (Chronic) E66.01, Z68.41 Type II diabetes mellitus (Chronic) E11.9 Non-ST elevation (NSTEMI) myocardial infarction (Resolved) Onset Date: 06/2017 I21.4 08/2014 and 06/2017 Allergies doxycycline Allergy (Severe, Verified 09/16/17 13:01) Rash nitrofurantoin Allergy (Severe, Verified 09/16/17 13:01) asthma attack tiotropium [From Spiriva with HandiHaler] Allergy (Severe, Verified 09/16/17 13:01) difficulty breathing hydrocodone bitartrate [From Vicodin] Allergy (Verified 09/16/17 13:01) Shortness of breath Penicillins Allergy (Verified 09/16/17 13:01) Hives azithromycin Adverse Reaction (Intermediate, Verified 09/16/17 13:01) Diarrhea cephalexin Adverse Reaction (Intermediate, Verified 09/16/17 13:01) Diarrhea indomethacin [From Indocin] Adverse Reaction (Intermediate, Verified 09/16/17 13:01) Diarrhea ketoprofen [From Orudis] Adverse Reaction (Intermediate, Verified 09/16/17 13:01) Diarrhea metformin [From Glucophage] Adverse Reaction (Intermediate, Verified 09/16/17 13:01) Diarrhea sulfamethoxazole [From Septra] Adverse Reaction (Intermediate, Verified 09/16/17 13:01) sore tongue trimethoprim [From Septra] Adverse Reaction (Intermediate, Verified 09/16/17 13:01) sore tongue oxycodone HCl [From Percocet] Adverse Reaction (Verified 09/16/17 13:01) Rash Home Medications: Ambulatory Orders Medication Instructions Recorded Glipizide [Glucotrol Xl] 10 mg PO BID 09/02/14 Metoprolol Tartrate [Lopressor 25 mg PO DAILY 09/02/14 Surgical History: Surgical History (Last Reviewed 09/16/17 @ 17:02 by KIAN Baer) History of left heart catheterization Onset Date: 06/2017 Z98.890 H/O arthroscopy of shoulder Z98.890 History of carpal tunnel surgery Z92.89 History of cholecystectomy Z90.49 History of tonsillectomy and adenoidectomy Z98.890 Surgical History: cholecystectomy, tonsillectomy, - Psychiatric History: No pertinent psych hx DIRECTOR OF MATH History: No pertinent DIRECTOR OF MATH history Lives: Spouse/ Significant Other Smoking Status: Former smoker Tobacco Use: Cigarettes Alcohol: None Drugs: None - *Family History Maternal Family History: Family History (Last Reviewed 09/16/17 @ 17:04 by KIAN Baer) Father CAD (coronary artery disease) Diabetes Hypertension History Items: Diabetes, - - age 85 Mother w/ MS. Paternal Family History: Family History (Last Reviewed 09/16/17 @ 17:04 by KIAN Baer) Father CAD (coronary artery disease) Diabetes Hypertension History Items: Diabetes, Heart Disease - Father w/ VT, age 62., Hypertension Review of Systems Constitutional: Reports: Fatigue. Denies: Anorexia, Chills, Fever, Night Sweats, Malaise, Weakness, Weight Change Eyes: Denies: Vision Change HEENT: Denies: Difficulty Swallowing, Nasal bleeding, Nasal Congestion, Post Nasal Drip, Sinus Congestion, Sinus Drainage, Sore Throat Cardiovascular: Reports: Claudication, Edema. Denies: Chest Pain, Chest Tightness, Light Headedness, Orthopnea, Palpitations, Paroxysmal Noc. Dyspnea, Syncope Respiratory: Reports: Shortness of Breath. Denies: Cough, Hemoptysis, Pleuritic Pain, Sputum production, Wheezing Gastrointestinal: Denies: Abdominal Pain, Constipation, Diarrhea, Dyspepsia, Hematemesis, Hematochezia, Nausea, Melena, Vomiting Genitourinary: Reports: Incontinence - stress, Nocturia. Denies: Dysuria, Frequency, Hematuria, Retention, Urgency Musculoskeletal: Reports: Leg Pain - L upper thigh, traveled to L calf. Resolved Skin: Denies: Rash, Wounds Neurological: Denies: Balance problems, Change in Speech, Confusion, Difficulty swallowing, Focal weakness, Numbness, Tingling, Tremor, Seizures Psychiatric: Reports: Anxiety. Denies: Depression Endocrine: Denies: Change in Body Habitus, Polydipsia, Polyuria Hematologic/ Lymphatic: Reports: Anemia. Denies: Adenopathy, Easy Bruising, Easy Bleeding, Hx of blood clot Patient Problems: Active and Suspected Problems (Last Updated 07/15/17 @ 10:50 by Nathalia Keyes) Dyspnea on exertion (Acute) Subjective: Patient was seen and examined. She is lying in bed having her lower extremity Dopplers performed. Denies any current chest pain. States she is always short of breath, however it has been worse over the last week. She is saturating at 93% on room air and it has not required any oxygen supplementation this admission. She denies any cough or sputum production. Objective: Clinical Impression(s) from Imaging Studies Chest X-Ray 09/16/17 14:43 IMPRESSION: Small right pleural effusion with underlying infiltration and/or atelectasis. Atelectasis and/or infiltrate at the left lung base. Radiographic follow-up is recommended. Electronically Signed: Edilson Vaughn MD at 15:11 EDT Tel [phone], Service support , Chest CTA 09/16/17 17:30 IMPRESSION: No demonstrated pulmonary embolism or arterial dissection. Moderately large right pleural effusion with associated consolidation/atelectasis of the right lung base. Nonspecific peripheral left lower lobe nodule. Subcentimeter mediastinal nodes. Additional abdominal findings as noted. Electronically Signed: Yg Cárdenas DO at 18:16 EDT Tel [phone], Service support , - Physical Exam General: Alert, Oriented x3, Cooperative, No apparent distress, Well developed, Well nourished, - - Obese HEENT: Atraumatic, PERRLA, Normocephalic Oral: Moist Mucosa, No Gingival or Mucosal Lesions/ Ulcerations Neck: Supple, No JVD, No Nodes, Trachea Midline Lungs: No wheeze, Diminished, Rales - Bibasilar and right mid posteriorly, - - Symmetric expansion, mild dullness to percussion on the right Cardiovascular: Regular rate, Regular Rhythm, Normal S1, Normal S2, No murmurs, PMI Normal, No rub noted, No Gallop Abdomen: Bowel Sounds Present, Soft, Non Tender, Non-Distended, Obese Extremities: No clubbing, No cyanosis, Capillary Refill Less than 3 Seconds, No Calf Tenderness, Edema - Trace pedal, Peripheral Pulses Normal Skin: No rashes, No breakdown Musculoskeletal: No Tenderness to Palpation of Joints or Extremities, No Muscle Wasting Lymphatic: No Cervical, Supraclavicular, or Inguinal Adenopathy Neurological: Cranial nerves II-XII grossly intact, Neuro grossly intact, Motor Exam 5/5 strength throughout Psych/Mental Status: Alert and oriented to time, place, person, mood and affect Vital Signs Temp Pulse Resp BP Pulse Ox 98.2 F 64 18 130/48 H 93 09/17/17 03:24 09/17/17 06:59 09/17/17 03:30 09/17/17 03:24 09/17/17 03:25 Oxygen Delivery Method Room Air Weight: 223 lb 4.8 oz Body Mass Index (BMI) 42.2 Intake and Output for Last 24 Hours Intake Total 1446 / 1446 Balance 1446 / 1446 Microbiology Past 72 Hours 09/17/17 03:06 Legionella Antigen - Final Laboratory Tests Past 24 Hrs WBC 5.7 POC Glucose POC Glucose 156 H 120 H 68 L Assessment/Plan All Active Problems (Last Updated 07/15/17 @ 10:50 by Nathalia Keyes) Dyspnea on exertion (Acute) Pleural effusion (Acute) Non-ST elevation (NSTEMI) myocardial infarction (Resolved 06/2017) RECOMMENDATIONS 1. Wean oxygen supplementation to keep saturations greater than 89% 2. Encourage incentive spirometer 3. Increase activity as tolerated 4. Continue aerosols 5. Plan for diagnostic thoracentesis today 6. N.p.o. in anticipation for thoracentesis 7. Send fluid for cytology 8. Await repeat echocardiogram 9. Cancel CT the chest scheduled for 09/26 10. Ambulatory pulse ox prior to discharge 11. Follow-up as scheduled in the pulmonary clinic IMPRESSIONS 1. Right-sided pleural effusion/shortness of breath Seen on imaging in June 2017, however larger. Patient does have persistent shortness of breath that increases with exertion, she is unable to tolerate any significant activity. However, her oxygen saturations have remained above 90% on room air. She remains afebrile and does not have a leukocytosis. Patient does have a significant smoking history and is being followed for multiple small lung nodules. Patient did have an echo June the showed severe mitral annular calcification, enlarged left atrium, and RVSP of 42. She has been compliant with her BiPAP 19/13 cmH2O with sleep. Pleural effusion is now larger than previous imaging. Would be suspicious for transudate of pleural effusion. She is agreeable to thoracentesis, but would like something to calm her nerves. 2. Anemia Hemoglobin has fallen approximately 2g/dl from her last admission. No signs of active bleeding, denies any hemoptysis, hematochezia, or melena. Management per hospitalist. 3. Suspected COPD/self-reported asthma/known LADI Compliant with her CPAP at home. Does not appear to be in an exacerbation at this time. COPD/asthma may be undertreated at this time, however awaiting upcoming pulmonary function tests. After these are obtained, will develop more concrete plan and hopefully be able to control her shortness of breath more efficiently. 4. Type II DM/morbid obesity/hyperlipidemia/HTN/history of tobacco abuse, in remission/pulmonary hypertension Complicates care, management, recovery, and prognosis. Continue to encourage smoking cessation. Home medications as indicated. Patient does not appear to be hypoxic, however have not obtained a walking oximetry yet. She did not require home oxygen when she was discharged in June. She will require an ambulatory pulse ox prior to discharge hospital. Thank you for the opportunity to participate in this patient's care, please not hesitate contact us with any further questions or concerns. This note was generated with [employer] software. It may contain incorrect words, spelling, and punctuation that were not noted in checking the note before signing. 09/17/17 0948 <Electronically signed by Marti LANGSTON> Date Marti LANGSTON Cosigner Signature (if applicable): Date CC: Angus Erickson MD; Guillermina Stanton MD Signed BEDSIDE GLUCOSE Collected: 09/17/2017 Status: F Source: [place] 10:57 AM [facility] REPOSITORY TYPE CODE TESTS RESULT OUT OF REFERENCE UNITS RANGE LAB L501.080 70-110 mg/dL High BEDSIDE GLU 170 Result Comment: MANAGEMENT OF PATIENT CARE PER NURSING PROTOCOL Performed By: #### L501.080 #### [facility] Point of Care [address] [place] [address] VENOUS DUPLEX LOWER Observed: 09/17/2017 Status: F Source: [place] EXTREMITY 10:28 AM [facility] REPOSITORY [facility] Cardiovascular Services [address] [place] [address] Venous Duplex US - Edouard Extrem 09/17/17 0856 MR#: [id number] Acct: [id number] Name: DEDRA LARA Rep #: [id number] : 1945 72 From: Marvin Rothman MD Attending Dr: Jopperi DO,Corbin Status: ADM KEVEN Ordering Dr: Vanessa Osuna Date: 09/16/17 Location: [facility] Sex: F C Admitted: 09/16/17 Reason For Study: Elevated D-Dimer RIGHT LEFT GSV is normal. GSV is normal. CFV is compressible, spontaneous, phasic, CFV is compressible, spontaneous, phasic, competent and demonstrates normal competent, and demonstrates normal augmentation. augmentation. FV is compressible, spontaneous, phasic, FV is compressible, spontaneous, phasic, competent and demonstrates normal competent and demonstrates normal augmentation. augmentation. POP V is compressible, spontaneous, phasic, POP V is compressible, spontaneous, phasic, competent and demonstrates normal competent and demonstrates normal augmentation. augmentation. T/P Trunk is compressible. T/P Trunk is compressible. PTV is compressible. PTV is compressible. RT PerV is compressible. LT PerV is compressible. Procedure Exam performed portable in patient room. A preliminary report was called and/or faxed to [facility]. Interpretation Summary No evidence for acute deep venous thrombosis bilateral lower extremities with patent and compressible bilateral great saphenous veins. Ordering Physician: KIAN Baer Referring Physician: Guillermina Stanton M.D. Performed By: Sary Cook RVT 09/17/17 1028 Date Marvin Rothman MD CC: KIAN Osuna; Corbin Montgomery DO; Guillermina Stanton MD Date Dictated: 09/17/17 0856 Date Transcribed: 09/17/17 1028 Shift Boss: Signed THORACENTESIS W US Observed: 09/17/2017 Status: F Source: [place] 8:51 AM [facility] REPOSITORY [facility] Imaging Services [address] [place] [address] Thoracentesis W US MR#: [id number] Acct: [id number] Name: DEDRA LARA Rep #: [id number] : 1945 F 72 From: Edilson Vaughn MD PCP: Guillermina Stanton MD Status: ADM IN Study: Thoracentesis W US Date of Exam: 09/18/17 Exam# [id number] Ordering Dr: Marti Chisholm NP-Ricardo PROCEDURE: ULTRASOUND GUIDED THORACENTESIS. DATE: September 18, 2017.. INDICATION: Female, 72 years old. Right pleural effusion. PHYSICIAN: Edilson Vaughn M.D. PROCEDURE: The risks, benefits, and alternatives to the procedure were explained to the patient. The specific risks of bleeding, infection, and pneumothorax requiring chest tube insertion were discussed and accepted. Written informed consent was obtained. Ultrasonographic evaluation of the right lower pleural space was carried out. An adequate pocket was identified. The patient was placed in the sitting, upright position. The overlying skin was prepped and draped in sterile fashion. 1% lidocaine was administered subcutaneously for local anesthesia. Under ultrasound guidance, a 6 [place] thoracentesis needle/catheter system was advanced into the right posterior lower pleural fluid collection. Approximately 1070 mL of shadi-colored fluid was drained. The catheter was removed, and a sterile dressing was applied. A specimen was collected and sent to the laboratory for analysis, as requested by the referring clinician. The patient tolerated the procedure well. A chest x-ray was ordered. US/Thoracentesis W US IMPRESSION: Ultrasound-guided right thoracentesis. Electronically Signed: Edilson Vaughn MD at 13:23 EDT Tel [phone], Service support , CC: Marti Chisholm SANITARIAN; Guillermina Stanton MD Shift Boss: Signed BEDSIDE GLUCOSE Collected: 09/17/2017 Status: F Source: [place] 6:55 AM [facility] REPOSITORY TYPE CODE TESTS RESULT OUT OF REFERENCE UNITS RANGE LAB L501.080 70-110 mg/dL High BEDSIDE GLU 156 Result Comment: MANAGEMENT OF PATIENT CARE PER NURSING PROTOCOL Performed By: #### L501.080 #### [facility] Point of Care [address] [place] [address] PROTHROMBIN TIME W/INR Collected: 09/17/2017 Status: F Source: [place] 6:44 AM [facility] REPOSITORY TYPE CODE TESTS RESULT OUT OF RANGE REFERENCE UNITS LAB L300.4150 11.7-14.9 SECONDS High PROTIME 15.2 LAB L300.4200 Normal INR 1.2 Performed By: #### L300.3900, L300.4310 #### [facility] [address] [place], [address] PARTIAL THROMBOPLAST Collected: 09/17/2017 Status: F Source: [place] TIME 6:44 AM [facility] REPOSITORY TYPE CODE TESTS RESULT OUT OF RANGE REFERENCE UNITS LAB L300.4310 24.1-36.2 Seconds Normal PTT 32.2 Performed By: #### L300.3900, L300.4310 #### [facility] [address] [place], [address] CBC W/DIFF, AUTOMATED Collected: 09/17/2017 Status: F Source: [place] 5:55 AM [facility] REPOSITORY TYPE CODE TESTS RESULT OUT OF RANGE REFERENCE UNITS LAB L100.1000 4.4-11.0 K/mm3 Normal WBC 5.7 LAB L100.1200 4.2-5.4 M/mm3 Low RBC 2.56 LAB L100.1300 12.0-15.0 g/dl Low HGB 7.7 LAB L100.1400 37-47 % Low HCT 24.6 LAB L100.1500 81-99 fL Normal MCV 96.1 LAB L100.1600 27.0-32.0 pg Normal MCH 30.1 LAB L100.1700 32-36 g/gl Low MCHC 31.3 LAB L100.1810 11.6-14.6 % Normal RDW CV 14.3 LAB L100.1820 35.1-43.9 fl High RDW SD 50.0 LAB L100.1900 150-450 K/mm3 Normal PLT 165 LAB L100.2000 6.2-12.0 fl Normal MPV 8.7 LAB L100.2100 47-70 % Normal NEUT% 65.0 LAB L100.2200 19-41 % Normal LY% 23.6 LAB L100.2300 0-10 % Normal MONO% 9.8 LAB L100.2400 0-5 % Normal EO% 1.4 LAB L100.2500 0-1 % Normal BASO% 0.2 LAB L100.2550 0.0-0.9 % Normal IM GRAN % 0.000 Result Comment: IG% - Immature Granulocytes (promyelocytes, myelocytes and metamyelocytes) > 1% indicates that a LEFT SHIFT is Present. LAB L100.2620 2.0-7.7 X10 3/uL Normal Absolute Neut 3.7 LAB L100.2720 0.83-4.51 X10 3/ul Normal Absolute Lymph 1.35 Performed By: #### L100.0100 #### [facility] [address] [place], [place], [address] BASIC METABOLIC Collected: 09/17/2017 Status: F Source: [place] [place] 5:55 AM [facility] REPOSITORY TYPE CODE TESTS RESULT OUT OF RANGE REFERENCE UNITS LAB L501.0100 74-106 mg/dL High GLU 157 Result Comment: Fasting Glucose result greater than or equal to 126 mg/dL suggests DIABETES MELLITUS per A.D.A. criteria. Please note revised GLUCOSE reference range effective 2017. LAB L501.1000 7-18 mg/dL High BUN 30 LAB L501.1100 0.55-1.02 mg/dL High CREAT,SERUM 1.29 Result Comment: The validity of the calculated GFR AND GFRAA in patients over 70 years has not been determined. Clinical correlation is essential. LAB L501.1110 >60 mL/min Low EST GFR 43 Result Comment: Non- GFR Calc LAB L501.1115 >60 mL/min Low EST GFR - AA 52 Result Comment: GFR Calc LAB L501.1255 ml/min Normal Estimated CRCL 29.31 LAB L501.1300 10-20 RATIO High BUN/CRE 23.3 LAB L501.2200 8.5-10 mg/dL Normal .1 CA 8.5 LAB L501.5300 136-14 mmol/L Normal 5 NA 140 LAB L501.5600 3.5-5. mmol/L Normal 1 K 4.3 LAB L501.5900 98-107 mmol/L Normal CL 104 LAB L501.6100 21.0-3 mmol/L Normal 2.0 CO2 27.0 LAB L501.6200 5-15 Normal GAP 9 Performed By: #### L500.2500, L501.5200, L501.9520 #### [facility] [address] [facility] [place], [place], [id number] MAGNESIUM Collected: 09/17/2017 Status: F Source: [place] 5:55 AM [facility] REPOSITORY TYPE CODE TESTS RESULT OUT OF RANGE REFERENCE UNITS LAB L501.5200 1.6-2.6 mg/dL Normal MG 2.0 Performed By: #### L500.2500, L501.5200, L501.9520 #### [facility] [address] [facility] [place], [place], [address] THYROID STIM HORMONE Collected: 09/17/2017 Status: F Source: [place] ([facility]) 5:55 AM [facility] REPOSITORY TYPE CODE TESTS RESULT OUT OF RANGE REFERENCE UNITS LAB L501.9520 0.358-3.74 uIU/mL Normal TSH 1.37 Performed By: #### L500.2500, L501.5200, L501.9520 #### [facility] [address] [facility] [place], [place], [id number] PROTEIN, TOTAL Collected: 09/17/2017 Status: F Source: [place] 5:55 AM [facility] REPOSITORY TYPE CODE TESTS RESULT OUT OF RANGE REFERENCE UNITS LAB L501.1500 6.4-8.2 g/dL Normal T PROT 6.8 LAB L501.1950 2.2-4.2 g/dL Normal GLOB 4.1 LAB L501.2000 0.9-2.4 RATIO Low A/G 0.7 Performed By: #### L001.0705, L504.2610 #### [facility] [address] [place], [address] LDH Collected: 09/17/2017 Status: F Source: [place] 5:55 AM [facility] REPOSITORY TYPE CODE TESTS RESULT OUT OF RANGE REFERENCE UNITS LAB L504.2610 84-246 U/L High LDH 270 Performed By: #### L001.0705, L504.2610 #### [facility] [address] [place], [address] STREP Observed: 09/17/2017 Status: F Source: [place] PNEUMONIAE ANTIG(UR,CSF) 3:06 AM [facility] REPOSITORY S pneumo Ag URINE INTERPRETATION Negative Urine Presumptive negative for pneumococcal pneumonia, suggesting no current or recent pneumococcal infection. Infection due to S pneumoniae cannot be ruled out since the antigen present in the sample may be below the detection limit of the test. Strep pneumo Test Negative URINE (See interpretation below) Performed By: #### M300.4600 #### [facility] [address] [place], [address] Observed: 09/17/2017 Status: F Source: [place] LEGIONELLA ANTIGEN 3:06 AM [facility] URINE REPOSITORY Specimen Source: URINE, CLEAN CATCH Legionella, UR Legionella Antigen result interpretation: Negative Presumptive negative for Legionella pneumophila serogroup 1 antigen in urine, suggesting no recent or current infection. Legionella Ag, Urine Negative (See interpretation below) Performed By: #### M300.4500 #### [facility] [place], [address] Observed: 09/16/2017 Status: F Source: [place] STOOL OCCULT BLOOD 10:04 PM [facility] IFOB REPOSITORY STOB iFOB Occult Blood Positive ORGANISM 1: OCCULT BLOOD POSITIVE Performed By: #### M100.7900 #### [facility] [address] [place], [address] BEDSIDE GLUCOSE Collected: 09/16/2017 Status: F Source: [place] 10:03 PM [facility] REPOSITORY TYPE CODE TESTS RESULT OUT OF REFERENCE UNITS RANGE LAB L501.080 70-110 mg/dL High BEDSIDE GLU 120 Result Comment: MANAGEMENT OF PATIENT CARE PER NURSING PROTOCOL Performed By: #### L501.080 #### [facility] Point of Care [address] [place] [address] BEDSIDE GLUCOSE Collected: 09/16/2017 Status: F Source: [place] 7:07 PM [facility] REPOSITORY TYPE CODE TESTS RESULT OUT OF REFERENCE UNITS RANGE LAB L501.080 70-110 mg/dL Low BEDSIDE GLU 68 Result Comment: MANAGEMENT OF PATIENT CARE PER NURSING PROTOCOL Performed By: #### L501.080 #### [facility] Point of Care [address] [place] [address] HISTORY AND PHYSICAL Observed: 09/16/2017 Status: F Source: [place] EXAM 6:11 PM [facility] REPOSITORY [facility] Medical Records Department [address] [place] [address] History and Physical 09/16/17 1642 MR#: [id number] Acct: [id number] Name: DEDRA LARA Rep #: [id number] : 1945 72 From: Vanessa MARCUSC PCP: Guillermina Stanton MD Status: ADM KEVEN Y Location: [place] [id number] <Vanessa Osuna - Last Filed: 09/16/17 17:45> Problem List (1) Dyspnea on exertion Status: Acute (2) Anemia Status: Acute (3) Non-ST elevation (NSTEMI) myocardial infarction Status: Resolved Comment: 08/2014 and 06/2017 (4) Personal history of transient ischemic attack (TIA), and cerebral infarction without residual deficits Status: Chronic (5) Nonrheumatic mitral (valve) stenosis Status: Chronic (6) Other secondary pulmonary hypertension Status: Chronic (7) Atherosclerotic heart disease of [place] coronary artery without angina pectoris Status: Chronic (8) Chronic asthma Status: Chronic Qualifiers: Asthma severity: moderate Asthma persistence: persistent Asthma complication type: uncomplicated Qualified Code(s): J45.40 - Moderate persistent asthma, uncomplicated (9) Pulmonary nodules/lesions, multiple Status: Chronic (10) Pleural effusion Status: Chronic (11) Bronchiectasis Status: Chronic Qualifiers: Bronchiectasis type: uncomplicated Qualified Code(s): J47.9 - Bronchiectasis, uncomplicated (12) LADI (obstructive sleep apnea) Status: Chronic (13) History of tobacco use Status: Chronic Comment: in remission, 66-pk-yr history (14) Hypertension Status: Chronic (15) Hyperlipidemia Status: Chronic (16) History of TIA (transient ischemic attack) Status: Chronic (17) Morbid obesity with BMI of 40.0-44.9, adult Status: Chronic (18) Type II diabetes mellitus Status: Chronic History of Present Illness Date of Admission: 09/16/17 Chief Complaint: Dyspnea on exertion. The patient is a 72 year old F who presents with ongoing dyspnea with exertion which has worsened since Saturday. She denies cough, fever, chills. Denies chest pain. She reports an episode approximately 1 week ago where she had severe left leg pain which lasted approximately 5 minutes and then resolved. She states she frequently has Reji horses in her legs at nighttime. Patient states she is undergoing outpatient evaluation with Dr. Erickson for pulmonary nodules and suspected COPD. She states she was to have an outpatient CTA of chest the of this month and pulmonary function test/6 minute walk in office as well. Patient denies lightheadedness, dizziness. Denies increased shortness of breath with lying flat. Patient states she has significant shortness of breath with minimal exertion/ambulation. She notes left lower extremity swelling which she states is chronic, however worse in the past 2 weeks. She states she follows a low-salt diet. Patient also reports diarrhea in the past day. She states she took Imodium prior to admission. She denies blood in stool. Her past medical history includes type 2 diabetes mellitus, history of TIA, hypertension, hyperlipidemia, 24-dnla-hmkm smoking history, obstructive sleep apnea, chronic pleural effusions, bronchiectasis, pulmonary nodules, chronic asthma, pulmonary hypertension, mitral valve stenosis, NSTEMI X2. Past Medical History Past Medical History (Chronic Problems): Chronic Problems (Last Updated 07/15/17 @ 10:50 by Nathalia Keyes) Personal history of transient ischemic attack (TIA), 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) Nonrheumatic mitral (valve) stenosis (Chronic) Other secondary pulmonary hypertension (Chronic) Atherosclerotic heart disease of [place] coronary artery without angina pectoris (Chronic) Chronic asthma (Chronic) Pulmonary nodules/lesions, multiple (Chronic) Pleural effusion (Chronic) Bronchiectasis (Chronic) LADI (obstructive sleep apnea) (Chronic) History of tobacco use (Chronic) in remission, 66-pk-yr history Hypertension (Chronic) Hyperlipidemia (Chronic) History of TIA (transient ischemic attack) (Chronic) Morbid obesity with BMI of 40.0-44.9, adult (Chronic) Type II diabetes mellitus (Chronic) Medical History: Medical History (Last Updated 07/15/17 @ 10:50 by Nathalia Keyes) Non-ST elevation (NSTEMI) myocardial infarction (Chronic) Onset Date: 06/2017 I21.4 08/2014 and 06/2017 Personal history of transient ischemic attack (TIA), 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) Z86.73 Nonrheumatic mitral (valve) stenosis (Chronic) I34.2 Other secondary pulmonary hypertension (Chronic) I27.29 Atherosclerotic heart disease of [place] coronary artery without angina pectoris (Chronic) I25.10 LADI (obstructive sleep apnea) (Chronic) G47.33 Asthma (Chronic) J45.909 History of tobacco use (Chronic) Z87.891 in remission, 66-pk-yr history Hypertension (Chronic) I10 Hyperlipidemia (Chronic) E78.5 History of TIA (transient ischemic attack) (Chronic) Morbid obesity with BMI of 40.0-44.9, adult (Chronic) E66.01, Z68.41 Type II diabetes mellitus (Chronic) E11.9 Allergies doxycycline Allergy (Severe, Verified 09/16/17 13:01) Rash nitrofurantoin Allergy (Severe, Verified 09/16/17 13:01) asthma attack tiotropium [From Spiriva with HandiHaler] Allergy (Severe, Verified 09/16/17 13:01) difficulty breathing hydrocodone bitartrate [From Vicodin] Allergy (Verified 09/16/17 13:01) Shortness of breath Penicillins Allergy (Verified 09/16/17 13:01) Hives azithromycin Adverse Reaction (Intermediate, Verified 09/16/17 13:01) Diarrhea cephalexin Adverse Reaction (Intermediate, Verified 09/16/17 13:01) Diarrhea indomethacin [From Indocin] Adverse Reaction (Intermediate, Verified 09/16/17 13:01) Diarrhea ketoprofen [From Orudis] Adverse Reaction (Intermediate, Verified 09/16/17 13:01) Diarrhea metformin [From Glucophage] Adverse Reaction (Intermediate, Verified 09/16/17 13:01) Diarrhea sulfamethoxazole [From Septra] Adverse Reaction (Intermediate, Verified 09/16/17 13:01) sore tongue trimethoprim [From Septra] Adverse Reaction (Intermediate, Verified 09/16/17 13:01) sore tongue oxycodone HCl [From Percocet] Adverse Reaction (Verified 09/16/17 13:01) Rash Home Medications: Ambulatory Orders Medication Instructions Recorded Glipizide [Glucotrol Xl] 10 mg PO BID 09/02/14 Surgical History: Surgical History (Last Reviewed 09/16/17 @ 17:02 by KIAN Baer) History of left heart catheterization Onset Date: 06/2017 Z98.890 H/O arthroscopy of shoulder Z98.890 History of carpal tunnel surgery Z92.89 History of cholecystectomy Z90.49 History of tonsillectomy and adenoidectomy Z98.890 Surgical History: cholecystectomy, tonsillectomy, - Psychiatric History: No pertinent psych hx DIRECTOR OF MATH History: No pertinent DIRECTOR OF MATH history Lives: Spouse/ Significant Other Smoking Status: Former smoker - [id number] smoking history - *Family History Maternal Family History: Family History (Last Reviewed 09/16/17 @ 17:04 by KIAN Baer) Father CAD (coronary artery disease) Diabetes Hypertension History Items: Diabetes, - - age 85 Mother w/ MS. Paternal Family History: Family History (Last Reviewed 09/16/17 @ 17:04 by KIAN Baer) Father CAD (coronary artery disease) Diabetes Hypertension History Items: Diabetes, Heart Disease - Father w/ VT, age 62., Hypertension Review of Systems Constitutional: Denies: Chills, Fever, Weight Change HEENT: Denies: Head Aches, Sinus Congestion, Sinus Drainage Cardiovascular: Reports: Edema - Bilateral lower extremities, left greater than right. Denies: Chest Pain, Light Headedness, Palpitations, Syncope Respiratory: Reports: Shortness of Breath - Worse with exertion. Denies: Cough, Sputum production Gastrointestinal: Reports: Diarrhea. Denies: Abdominal Pain, Nausea, Vomiting Genitourinary: Denies: Dysuria Musculoskeletal: Reports: - - Bilateral leg cramping at night. Denies: Joint Pain, Joint Tenderness Skin: Denies: Rash, Wounds Neurological: Denies: Numbness, Tingling, Focal weakness Psychiatric: Denies: Anxiety, Depression, Homicidal Ideations, Suicidal Ideations Hematologic/ Lymphatic: Denies: Easy Bruising, Easy Bleeding VTE Information - Inpt Only VTE Present on Admission: No VTE Mechan Device Prophylaxis: SCD's VTE Pharm Prophylaxis ordered?: No Reason prophylaxis not ordered:: Medical Contraindication - Acute anemia Patient Problems: Active and Suspected Problems (Last Updated 07/15/17 @ 10:50 by Nathalia Keyes) Dyspnea on exertion (Acute) Anemia (Acute) - Physical Exam General: Alert, Oriented x3, Cooperative, No apparent distress HEENT: Atraumatic, PERRLA, EOMI, Normocephalic Oral: Moist Mucosa Neck: Supple, No JVD, Negative Carotid Bruits Lungs: Diminished, Wheezes - Minimal faint scattered expiratory wheezing. Globally diminished. Cardiovascular: Regular rate, Regular Rhythm, Normal S1, Normal S2, No murmurs Abdomen: Bowel Sounds Present, Soft, Non Tender, Non-Distended, Obese Extremities: No cyanosis, Capillary Refill Less than 3 Seconds, Edema - +2 left lower extremity Skin: No rashes, No breakdown Musculoskeletal: No Tenderness to Palpation of Joints or Extremities Neurological: Cranial nerves II-XII grossly intact, Neuro grossly intact Psych/Mental Status: Normal Affect, Appropriate Vital Signs Temp Pulse Resp BP Pulse Ox 98.1 F 68 14 136/70 H 99 09/16/17 13:00 09/16/17 15:07 09/16/17 15:07 09/16/17 15:07 09/16/17 15:07 Oxygen Delivery Method Room Air Weight: 99.8 kg Body Mass Index (BMI) 41.5 Finger Stick Blood Glucose 241 Laboratory Tests Past 24 Hrs WBC RBC Hgb Hct MCV MCH MCHC RDW RDW Differential Plt Count Assessment/Plan All Active Problems (Last Updated 07/15/17 @ 10:50 by Nathalia Keyes) Dyspnea on exertion (Acute) Anemia (Acute) Non-ST elevation (NSTEMI) myocardial infarction (Resolved 06/2017) 1. Dyspnea on exertion in the context of multiple chronic lung concerns including bronchiectasis/chronic pleural effusions/pulmonary nodules/pulmonary hypertension-chest x-ray on admission shows right pleural effusion with underlying infiltration and/or atelectasis. Atelectasis and/or infiltrate of the left lung base. BNP 244. Echocardiogram October 2015 demonstrated an estimated ejection fraction of 75%, moderate mitral valve stenosis, trivial mitral and tricuspid valve insufficiency, RVSP estimated to be 42 mmHg. D-dimer 2.83. D-dimer during admission June 2017 elevated as well with CT negative for PE. CT of chest 06/24/2017 with small right pleural effusion with right basilar atelectasis, bibasilar scarring with areas of bronchiectasis, 2 small noncalcified nodules in the left lower lobe. Repeat CTA of chest. Obtain bilateral duplex ultrasound. Consult pulmonary medicine. Patient's oxygen is stable on room air. Repeat echocardiogram. 2. Chronic kidney disease suspected stage [id number] admission with creatinine 1.1. Creatinine on admission 1.3. Trend BMP. IV fluids given CT with contrast. Hold lisinopril and Lasix regimen. 3. Acute on chronic normocytic anemia-hemoglobin 8.6 on admission. Baseline appears to be 10-11. Patient denies blood in stool. Check stool for occult blood. Repeat CBC in a.m. Check iron studies. 4. Obstructive sleep apnea-polysomnogram December 2015 demonstrated severe obstructive sleep apnea in which BiPAP was recommended 19/13 cm of water. Continue BiPAP nightly. 5. Chronic asthma/suspected COPD-patient is scheduled for outpatient pulmonary function test and walking pulse oximetry with Dr. Erickson. No acute exacerbation. Albuterol and DuoNeb aerosol. 6. Type 2 diabetes mellitus-hemoglobin A1c October 2016 9.4%. Continue long-acting insulin regimen. Patient states she is unable to use Lantus and request to bring in home basaglar. Accu-Cheks before meals at bedtime with sliding scale insulin. 7. History of TIA-continue aspirin, statin. 8. Hypertension-stable, continue metoprolol. Hold lisinopril. 9. Hyperlipidemia-continue statin. 10. Former tobacco [id number]-year smoking history. 11. Mitral valve stenosis 12. CAD/NSTEMI X2-denies chest pain currently. Cardiac catheterization June 2017 demonstrated LVEF 75%, nonobstructive coronary arteries. Follows with Dr. Hearn. Continue aspirin, metoprolol, statin. 13. Morbid obesity-encourage diet lifestyle modifications. Nutrition consult. DVT prophylaxis-SCDs, hold pharmacologic prophylaxis given anemia. This patient was seen by KIAN Baer under the supervision of Dr. Martinez. <Anthony Martinez - Last Filed: 09/16/17 18:11> History of Present Illness Seen and examined in ER. Patient has ongoing dyspnea on exertion for 6 days as mentioned above. Denies chest heaviness/chest pain, fever or chills. Patient also has leg swelling which is chronic but getting worse. She has suspected COPD and last PFT was about 14-[address] Erickson has suggested PFT and she is due for that. She also follows Dr. Hearn for history of coronary artery disease. [] Past Medical History Medical History: Medical History (Last Updated 07/15/17 @ 10:50 by Nathalia Keyes) Non-ST elevation (NSTEMI) myocardial infarction (Chronic) Onset Date: 06/2017 I21.4 08/2014 and 06/2017 Personal history of transient ischemic attack (TIA), 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) Z86.73 Nonrheumatic mitral (valve) stenosis (Chronic) I34.2 Other secondary pulmonary hypertension (Chronic) I27.29 Atherosclerotic heart disease of [place] coronary artery without angina pectoris (Chronic) I25.10 LADI (obstructive sleep apnea) (Chronic) G47.33 Asthma (Chronic) J45.909 History of tobacco use (Chronic) Z87.891 in remission, 66-pk-yr history Hypertension (Chronic) I10 Hyperlipidemia (Chronic) E78.5 History of TIA (transient ischemic attack) (Chronic) Morbid obesity with BMI of 40.0-44.9, adult (Chronic) E66.01, Z68.41 Type II diabetes mellitus (Chronic) E11.9 Allergies doxycycline Allergy (Severe, Verified 09/16/17 13:01) Rash nitrofurantoin Allergy (Severe, Verified 09/16/17 13:01) asthma attack tiotropium [From Spiriva with HandiHaler] Allergy (Severe, Verified 09/16/17 13:01) difficulty breathing hydrocodone bitartrate [From Vicodin] Allergy (Verified 09/16/17 13:01) Shortness of breath Penicillins Allergy (Verified 09/16/17 13:01) Hives azithromycin Adverse Reaction (Intermediate, Verified 09/16/17 13:01) Diarrhea cephalexin Adverse Reaction (Intermediate, Verified 09/16/17 13:01) Diarrhea indomethacin [From Indocin] Adverse Reaction (Intermediate, Verified 09/16/17 13:01) Diarrhea ketoprofen [From Orudis] Adverse Reaction (Intermediate, Verified 09/16/17 13:01) Diarrhea metformin [From Glucophage] Adverse Reaction (Intermediate, Verified 09/16/17 13:01) Diarrhea sulfamethoxazole [From Septra] Adverse Reaction (Intermediate, Verified 09/16/17 13:01) sore tongue trimethoprim [From Septra] Adverse Reaction (Intermediate, Verified 09/16/17 13:01) sore tongue oxycodone HCl [From Percocet] Adverse Reaction (Verified 09/16/17 13:01) Rash Surgical History: Surgical History (Last Reviewed 09/16/17 @ 17:02 by KIAN Baer) History of left heart catheterization Onset Date: 06/2017 Z98.890 H/O arthroscopy of shoulder Z98.890 History of carpal tunnel surgery Z92.89 History of cholecystectomy Z90.49 History of tonsillectomy and adenoidectomy Z98.890 - *Family History Maternal Family History: Family History (Last Reviewed 09/16/17 @ 17:04 by KIAN Baer) Father CAD (coronary artery disease) Diabetes Hypertension Paternal Family History: Family History (Last Reviewed 09/16/17 @ 17:04 by KIAN Baer) Father CAD (coronary artery disease) Diabetes Hypertension - Physical Exam Lungs: Diminished, Wheezes Cardiovascular: Regular rate, Regular Rhythm, Normal S2 Abdomen: Non Tender, Non-Distended Extremities: Edema - +2 left lower extremity Bilateral pitting edema, left worse than right Vital Signs Temp Pulse Resp BP Pulse Ox 98.1 F 78 14 130/78 H 95 09/16/17 13:00 09/16/17 17:05 09/16/17 17:05 09/16/17 17:05 09/16/17 17:05 Oxygen Delivery Method Room Air Assessment/Plan This patient was seen in conjunction with Vanessa LPOEZ. I have independently interviewed and examined the patient and reviewed pertinent history, examination findings, laboratory and plan of management. I have reviewed the note and agree with the documented findings with the few additional points. In brief, patient is admitted for dyspnea on exertion with chronic lung and cardiac disease. Chest x-ray done in ER shows a small right pleural effusion and underlying infiltrate on the right side. Left lung base infiltrate/atelectasis. CTPA was ordered and done but official report pending. Shows right-sided pleural effusion with atelectasis and infiltrates. Patient had 2D echo in October 2015 which shows hyperdynamic left ventricle with EF 75%, LA severely enlarged with normal right atrium suggestive of diastolic dysfunction. Patient also had severe mitral annular calcification with moderate MS. Trivial MR. Trivial TR with RVSP 42 mg. Repeat 2D echo ordered in view of right-sided pleural effusion seems to moderate, pulmonary hypertension with history of possible COPD. Continue IV fluid to prevent contrast-induced nephropathy and hold Lasix and nephrotoxic medications. Clinically, she does not seem to have pneumonia as there is no tachypnea, or hypoxia or fever or chills. I have discussed my assessment with SANITARIANVanessa and orders have been reviewed. Code Visit Inpatient E AND M: 96593 Init Hosp L3 09/16/17 1745 <Electronically signed by Vanessa Osuna SANITARIAN-C> Date Vanessa Osuna SANITARIAN-C 09/16/17 1811<Electronically signed by Anthony Martinez MD> Cosigner Signature: Date (if applicable) Anthony Martinez MD CC: SANITARIAN-C Vanessa Osuna; Guillermina Stanton MD; Anthony Martinez MD Signed CTA CHEST W/WO Observed: 09/16/2017 Status: F Source: [place] CONTRAST 5:38 PM [facility] REPOSITORY [facility] Imaging Services [address] [place] [address] CTA Chest W/WO Contrast MR#: [id number] Acct: [id number] Name: MARCODEDRA L Rep #: [id number] : 1945 F 72 From: Yg Cárdenas DO PCP: Guillermina Stanton MD Status: ADM KEVEN Study: CTA Chest W/WO Contrast Date of Exam: 09/16/17 Exam# [id number] Ordering Dr: Vanessa Osuna SANITARIAN-C STUDY: CTA CHEST REASON FOR EXAM: Female, 72 years old. Dyspnea, elevated d-dimer RADIATION DOSAGE (If Supplied By Facility): CTDIvol = ( 16.6 ) mGy, DLP = ( 682.38 ) mGycm TECHNIQUE: The examination was performed with the intravenous administration of 100 ml of Isovue 370 contrast material. Post-processing of the angiographic images was performed, with multiplanar reformation and 3D reconstruction. Individualized dose optimization techniques were used for this CT. COMPARISON: None. FINDINGS: Normal enhancement of the main pulmonary artery and right and left pulmonary arteries. Normal enhancement of the bilateral peripheral pulmonary arteries. There is no demonstrated pulmonary embolism. Calcified thoracic aorta and visualized great vessels. There is no demonstrated aortic dissection. Normal heart and pericardium. Subcentimeter nodes in the in the mediastinum. Normal hilar regions. Normal visualized trachea and bronchi. The lungs are well expanded. There is a moderately large right pleural effusion with associated consolidation/atelectasis in the right lung base. Nonspecific peripheral 5 mm right lower lobe nodule is noted, image 114. Normal chest wall structures. Degenerative vertebral changes. Slightly lobulated hepatic condyle may be related to cirrhosis. There are thyroid nodular lesions bilaterally. Partially seen subcutaneous nodule within the right-sided neck, image 234 CT/CTA Chest W/WO Contrast IMPRESSION: No demonstrated pulmonary embolism or arterial dissection. Moderately large right pleural effusion with associated consolidation/atelectasis of the right lung base. Nonspecific peripheral left lower lobe nodule. Subcentimeter mediastinal nodes. Additional abdominal findings as noted. Electronically Signed: Yg Cárdenas DO at 18:16 EDT Tel [phone], Service support , CC: KIAN Osuna; Guillermina Stanton MD Shift Boss: Signed EMERGENCY DEPARTMENT Observed: 09/16/2017 Status: F Source: [place] SUMMARY 5:31 PM [facility] REPOSITORY [facility] Medical Records Department [address] [place] [address] Emergency Department Summary 09/16/17 1549 MR#: [id number] Acct: [id number] Name: DEDRA LARA Rep #: [id number] : 1945 72 From: Corbin Brizuela DO PCP: Guillermina Stanton MD Status: ADM KEVEN - ER Visit Summary Date of Service: 09/16/17 Chief Complaint: Shortness of breath History of Present Illness: The patient is a 72 F who presents with shortness of breath that has been getting worse over the past 6 days. Patient states that it has gradually gotten worse. Patient states her breathing is worse with any exertion. Patient denies any cough. Patient denies any rhinorrhea or sore throat. Patient admits to chills at home but denies any fevers. Patient denies any chest pain. Patient states she feels like she just cannot get enough oxygen into her lungs. Patient does admit to some swelling of her lower extremities but states this has improved recently. Physical Examination: Vital signs are stable. Patient is afebrile. Patient is in no acute distress. Oral mucosa is pink and moist. Neck is supple. There is no JVD noted. Heart was regular rate and rhythm. Lungs were diminished bilaterally. They were otherwise clear. Abdomen is soft and nontender. Cranial nerves II through XII are intact. There are no focal motor or sensory deficits noted. There is 1+ edema of the lower extremities slightly worse on the left. The remaining physical exam is within normal limits. Test Results: CBC showed anemia with a hemoglobin of 8.6. BUN was slightly elevated at 31. Creatinine was slightly elevated at 1.39. Patient's GFR was only 40. BNP was normal at 244.3. D-dimer was elevated at 2.83. Chest x-ray shows atelectasis versus infiltrate in the left base. There is also a small right pleural effusion. Emergency Department Course and Treatment: Patient was resting comfortably on reevaluation. However, patient states that she only gets short of breath with any exertion. Case was discussed with Dr. Martinez. He will admit the patient to his service. Patient understood and was agreeable with the plan. All questions were answered. Disposition: Admit to hospital Impression: Dyspnea on exertion, anemia This note was generated with [employer] dictation software. It may contain incorrect words, spelling, and punctuation that were not noted in review of the chart prior to signing ED Disposition - Plan for ED Patient: Disposition: Acute Care Hospital [facility] Chief Complaint: Shortness of Breath Diagnosis: Dyspnea on exertion, Anemia Referrals: Guillermina Stanton MD [Primary Care Provider] - What to do if you have Problems For any increased pain, shortness of breath, bleeding, nausea or vomiting, chest pain, or any unexpected problems, contact your Primary Care Provider. Call [facility] ([phone]) or report to the closest Emergency Room. Call 911 if necessary. 09/16/17 1731 <Electronically signed by Corbin Brizuela DO> Date Corbin Brizuela DO Cosigner Signature (If Indicated): Date CC: Guillermina Stanton MD CHEST PA AND LATERAL Observed: 09/16/2017 Status: F Source: [place] 2:30 PM [facility] REPOSITORY [facility] Imaging Services [address] [place] [address] Chest PA and Lateral MR#: [id number] Acct: [id number] Name: DEDRA LARA Rep #: [id number] : 1945 F 72 From: Edilson Vaughn MD PCP: Guillermina Stanton MD Status: REG ER Study: Chest PA and Lateral Date of Exam: 09/16/17 Exam# [id number] Ordering Dr: Corbin Brizuela DO STUDY: X-RAY CHEST REASON FOR EXAM: Female, 72 years old. Shortness of breath upon exertion. History of asthma. TECHNIQUE: PA and lateral views of the chest. COMPARISON: Comparison is made with prior study dated June 24, 2017. FINDINGS: EKG electrodes are seen. Small right pleural effusion with underlying infiltration and/or atelectasis. Mild increased markings are also seen at the left lung base. Radiographic follow-up is recommended. There is no demonstrated pleural abnormality. There is borderline cardiomegaly. Normal mediastinum and alfredo. Normal visualized pulmonary arteries. There is atherosclerotic calcification of the aortic arch with tortuosity. There are diffuse degenerative changes of the visualized thoracic spine. Normal visualized ribs, clavicles, and shoulders. There is no demonstrated abnormality of the visualized soft tissue structures of the upper abdomen. RAD/Chest PA and Lateral IMPRESSION: Small right pleural effusion with underlying infiltration and/or atelectasis. Atelectasis and/or infiltrate at the left lung base. Radiographic follow-up is recommended. Electronically Signed: Edilson Vaughn MD at 15:11 EDT Tel [phone], Service support , CC: Corbin Brizuela DO; Guillermina Stanton MD Shift Boss: Signed CBC W/DIFF, AUTOMATED Collected: 09/16/2017 Status: F Source: [place] 1:58 PM [facility] REPOSITORY TYPE CODE TESTS RESULT OUT OF RANGE REFERENCE UNITS LAB L100.1000 4.4-11.0 K/mm3 Normal WBC 6.7 LAB L100.1200 4.2-5.4 M/mm3 Low RBC 2.80 LAB L100.1300 12.0-15.0 g/dl Low HGB 8.6 LAB L100.1400 37-47 % Low HCT 27.6 LAB L100.1500 81-99 fL Normal MCV 98.6 LAB L100.1600 27.0-32.0 pg Normal MCH 30.7 LAB L100.1700 32-36 g/gl Low MCHC 31.2 LAB L100.1810 11.6-14.6 % Normal RDW CV 13.8 LAB L100.1820 35.1-43.9 fl High RDW SD 47.5 LAB L100.1900 150-450 K/mm3 Normal PLT 200 LAB L100.2000 6.2-12.0 fl Normal MPV 9.5 LAB L100.2100 47-70 % Normal NEUT% 69.2 LAB L100.2200 19-41 % Normal LY% 19.1 LAB L100.2300 0-10 % Normal MONO% 9.5 LAB L100.2400 0-5 % Normal EO% 1.7 LAB L100.2500 0-1 % Normal BASO% 0.3 LAB L100.2550 0.0-0.9 % Normal IM GRAN % 0.200 Result Comment: IG% - Immature Granulocytes (promyelocytes, myelocytes and metamyelocytes) > 1% indicates that a LEFT SHIFT is Present. LAB L100.2620 2.0-7.7 X10 3/uL Normal Absolute Neut 4.6 LAB L100.2720 0.83-4.51 X10 3/ul Normal Absolute Lymph 1.27 Performed By: #### L100.0100 #### [facility] [address] [place], [place], [address] COMPREHENSIVE METABOLIC Collected: 09/16/2017 Status: F Source: [facility] 1:58 PM [facility] REPOSITORY TYPE CODE TESTS RESULT OUT OF RANGE REFERENCE UNITS LAB L501.0100 74-106 mg/dL High GLU 195 Result Comment: Fasting Glucose result greater than or equal to 126 mg/dL suggests DIABETES MELLITUS per A.D.A. criteria. Please note revised GLUCOSE reference range effective 2017. LAB L501.1000 7-18 mg/dL High BUN 31 LAB L501.1100 0.55-1.02 mg/dL High CREAT,SERUM 1.39 Result Comment: The validity of the calculated GFR AND GFRAA in patients over 70 years has not been determined. Clinical correlation is essential. LAB L501.1110 >60 mL/min Low EST GFR 40 Result Comment: Non- GFR Calc LAB L501.1115 >60 mL/min Low EST GFR - AA 48 Result Comment: GFR Calc LAB L501.1255 ml/min Normal Estimated CRCL 27.20 LAB L501.1300 10-20 RATIO High BUN/CRE 22.3 LAB L501.1500 6.4-8. g/dL Normal 2 T PROT 7.3 LAB L501.1800 3.2-5. g/dL Low 0 ALB 2.8 LAB L501.1950 2.2-4. g/dL High 2 GLOB 4.5 LAB L501.2000 0.9-2. RATIO Low 4 A/G 0.6 LAB L501.2200 8.5-10 mg/dL Low .1 CA 8.4 LAB L501.4100 15-37 U/L Normal AST 21 LAB L501.4305 45-117 U/L Normal ALK P 101 LAB L501.4405 13-56 U/L Normal ALT 20 LAB L501.4600 0.20-1 mg/dL Normal .00 T BILI 0.60 LAB L501.5300 136-14 mmol/L Normal 5 NA 139 LAB L501.5600 3.5-5. mmol/L Normal 1 K 4.2 LAB L501.5900 98-107 mmol/L Normal CL 103 LAB L501.6100 21.0-3 mmol/L Normal 2.0 CO2 27.0 LAB L501.6200 5-15 Normal GAP 9 Performed By: #### L500.4050, L501.4010 #### [facility] [address] [place], [address] TROPONIN-I Collected: 09/16/2017 Status: F Source: [place] 1:58 PM [facility] REPOSITORY TYPE CODE TESTS RESULT OUT OF RANGE REFERENCE UNITS LAB L501.4010 <0.045 ng/mL Normal < 0.015 TROPONIN-I Result Comment: TROPONIN-I EXPECTED VALUES <0.045 Negative 0.045 - 0.590 Consistent with Cardiac Damage > OR = 0.600 Critical Value Not every elevated troponin is indicative of VT. These values should be used with clinical judgement in examining the patient's clinical picture for diagnosis. To establish a diagnosis of VT versus myocardial injury, there must be a demonstrated rise and/or fall in the troponin values, in addition to ischemic symptoms, EKG changes, new regional wall motion abnormality, and/or angiographical evidence. PLEASE NOTE: REFERENCE RANGES EDITED 17 Performed By: #### L500.4050, L501.4010 #### [facility] [address] [place], [place], [address] D-DIMER QUANTITATIVE Collected: 09/16/2017 Status: F Source: ABENA (DVT/PE) 1:58 PM [facility] REPOSITORY TYPE CODE TESTS RESULT OUT OF RANGE REFERENCE UNITS LAB L300.8000 0.27-0.49 FEU/ug/m High alert D-DIMER 2.83 QUANT Result Comment: D-Dimer ELEVATED (>0.49): Additional studies and clinical assessments are indicated to conclude diagnosis of: Deep Vein Thrombosis (DVT) or Pulmonary Embolism (PE) CRITICAL VALUE VERIFIED. CALLED TO JONEL COYLE 09/16/17 Marlene Kirkpatrick. RESULTS READ BACK BY SAME. Performed By: #### L300.8000 #### [facility] [address] [place], [place], [address] BNP,B-TYPE NATRIURETIC Collected: 09/16/2017 Status: F Source: ABENA PEPTIDE 1:58 PM [facility] REPOSITORY TYPE CODE TESTS RESULT OUT OF RANGE REFERENCE UNITS LAB L503.6620 0-100 pg/mL High B-TYPE 244.3 PAOLO PEP Performed By: #### L503.6620 #### [facility] [address] [place], [address] IRON+IRON BINDING Collected: 09/16/2017 Status: F Source: ABENA CAPACITY 1:58 PM [facility] REPOSITORY TYPE CODE TESTS RESULT OUT OF RANGE REFERENCE UNITS LAB L503.6075 250-450 ug/dL TIBC Normal 437 LAB L503.6150 50-170 ug/dL IRON Normal 83 LAB L503.6250 15.0-55.0 % IRON Normal SATURATION 19.0 Performed By: #### L503.6030, L503.6550 #### [facility] [address] [place], [place], [address] FERRITIN Collected: 09/16/2017 Status: F Source: ABENA 1:58 PM [facility] REPOSITORY TYPE CODE TESTS RESULT OUT OF RANGE REFERENCE UNITS LAB L503.6550 8-252 ng/mL Normal FERRITIN 15 Performed By: #### L503.6030, L503.6550 #### [facility] [address] [place], [address] SR-CTA CHEST W/WO Observed: 09/16/2017 Status: F Source: DENNISON CONTRAST IMPORT 12:00 AM [facility] REPOSITORY Images were obtained outside of [facility] [id number] CARDIOLOGY VISIT Observed: 07/15/2017 Status: F Source: ABENA REPORT 11:34 AM [facility] REPOSITORY [facility] [address] [place] [address] OFFICE VISIT Date of Service: 07/15/17 MR#: [id number] Acct: [id number] Name: DEDRA LARA Rep #: [id number] : 1945 Provider: Flex Hearn MD Age/Sex: 72/F Location: [facility] Status: Signed HPI HPI Chief Complaint: Routine f/u Details: referring physician Dr. Guillermina Stanton, Dr. Langston Mrs. Lara is a very pleasant 72-year-old morbidly obese diabetic female, former smoker who quit about 13 years ago, with a history of hypertension, hypercholesterolemia, and coronary artery disease. Left heart catheterization on 09/03/14 via the right groin which demonstrated nonobstructive disease of her LAD in the range of 30%, a significant 70% stenosis at the bifurcation of a small inferior branch of the obtuse marginal as well as a very small superior branch area and this is most likely the culprit lesion. This vessels approximate 1.5 mm and had FOSTER-3 flow. Her RCA was a large dominant vessel with at most a 30% diffuse stenosis in the proximal midportion. Her LV angiogram appeared to be normal in 2 different views. Patient was treated medically. On 10/26/2015 the patient was admitted to [facility] with acute on recurrent visual disturbance is most likely related to an ocular migraine. TIA at that time was ruled out, MRI of the brain was negative for acute ischemic infarct, and the patient's blood pressure is elevated at that time and her lisinopril HCTZ was increased to 20/25 mg daily. In addition was determined that was actually an ocular migraine and she has been treated for that. Echocardiogram on 10/2015 demonstrated an estimated ejection fraction of 75%, moderate LVH, left atrium is severely enlarged, moderate mitral valve stenosis, trivial mitral and tricuspid valve insufficiency, RVSP estimated 42 mmHg. The patient had a formal polysomnogram on 01/06/2016 which did demonstrate severe obstructive sleep apnea and recommended BiPAP at 19/13 cm of water. From a cardiac standpoint he is doing well. States that she is in very good health. She denies chest discomfort. Their exercise tolerance is stable. She denies symptoms of CHF, palpitations, lightheadedness, dizziness, orthopnea, near syncopal or syncopal episodes. Otherwise she says that she is tolerating her BiPAP therapy well and is following up with Dr. Heath regarding this. She is periodically taking Lasix about 2 times per week but has not yet tried SANDOVAL hose. In our office today blood pressure is 122/64, pulse of 68 and regular. Physical exam is as below. Lipids as of 03/26/16 show an LDL of 58 and HDL of 66. Her lipids as of 10/09/16 showed an HDL of 70 and LDL of 62. Intake Vital Signs07/15/17 Height 5 ft 1 in Intake Visit Reasons: 6 M FU Allergies doxycycline Allergy (Severe, Verified 07/15/17 10:30) Rash nitrofurantoin Allergy (Severe, Verified 07/15/17 10:30) asthma attack tiotropium [From Spiriva with HandiHaler] Allergy (Severe, Verified 07/15/17 10:30) difficulty breathing hydrocodone bitartrate [From Vicodin] Allergy (Verified 07/15/17 10:30) Shortness of breath Penicillins Allergy (Verified 07/15/17 10:30) Hives azithromycin Adverse Reaction (Intermediate, Verified 07/15/17 10:30) Diarrhea cephalexin Adverse Reaction (Intermediate, Verified 07/15/17 10:30) Diarrhea indomethacin [From Indocin] Adverse Reaction (Intermediate, Verified 07/15/17 10:30) Diarrhea ketoprofen [From Orudis] Adverse Reaction (Intermediate, Verified 07/15/17 10:30) Diarrhea metformin [From Glucophage] Adverse Reaction (Intermediate, Verified 07/15/17 10:30) Diarrhea sulfamethoxazole [From Septra] Adverse Reaction (Intermediate, Verified 07/15/17 10:30) sore tongue trimethoprim [From Septra] Adverse Reaction (Intermediate, Verified 07/15/17 10:30) sore tongue [facility] Adverse Reaction (Verified 07/15/17 10:30) Rash Medications Glipizide [Glucotrol Xl] 10 mg PO BID 09/02/14 [History Confirmed 07/15/17] Metoprolol Tartrate [Lopressor (beta rory)] 25 mg PO DAILY 09/02/14 [History Confirmed 07/15/17] Metoprolol Tartrate [Lopressor (beta rory)] 50 mg PO QHS 09/02/14 [History Confirmed 07/15/17] Aspirin [Aspirin, Baby] 81 mg PO DAILY 09/27/14 [History Confirmed 07/15/17] Montelukast [Singulair] 10 mg PO DAILY 09/21/15 [History Confirmed 07/15/17] Lisinopril/Hydrochlorothiazide [Zestoretic 20-25 mg Tablet] 1 ea PO DAILY #30 tab 10/27/15 [Rx Confirmed 07/15/17] Furosemide [Lasix] 40 mg PO DAILY 06/24/17 [History Confirmed 07/15/17] Insulin Glargine,Hum.rec.anlog [Basaglar Kwikpen U-100] 80 unit SQ DAILY 06/24/17 [History Confirmed 07/15/17] Lisinopril [Zestril] 20 mg PO QHS 06/24/17 [History Confirmed 07/15/17] Simvastatin [Zocor] 20 mg PO QHS 06/24/17 [History Confirmed 07/15/17] Symbicort 160-4.5 Mcg Inhaler 2 puff IH BID 06/24/17 [History Confirmed 07/15/17] traMADol [Ultram] 50 mg PO PRN PRN 06/24/17 [History Confirmed 07/15/17] albuterol sulfate HFA 90 mcg/actuation aerosol inhaler 2 puff INHALATION Q4H PRN g 07/03/17 [History Confirmed 07/15/17] PFSH Family History Father CAD (coronary artery disease) Diabetes Hypertension Social History Smoking Status: Former smoker how long ago did patient quit smokin, 1.5p/d second hand exposure: Yes alcohol intake: current alcohol intake frequency: holidays/special occasions only substance use type: does not use ROS Const Const: Negative for fatigue, weakness, difficulty sleeping, frequent falls, headache(s) or excessive sweating Eyes Eyes: Negative for loss of peripheral vision, transient loss of vision, blurry vision or double vision ENT ENT: Negative for headache(s), dizziness, Nosebleed/epistaxis or balance problems Cardio Chest Pain: No Edema: None Muscle aches with walking: Bilateral (Trace Left>Right) Resp Respiratory: Negative for SOB with activity, SOB at rest, SOB orthopnea\SOB lying down or paroxysmal nocturnal dyspnea Additional Details: cpap GI GI: Negative nausea or heartburn : Negative for hematuria Musc Musc: Negative for muscle aches/ myalgia, muscle weakness, joint pain or balance problems Skin Skin: Negative non-healing lesions, unusual bruising or rash Neuro Neuro: Negative for weakness, frequent falls, blurry vision, headache(s), dizziness, lightheadedness, orthostatic symptoms or double vision Jesse Hematologic/Lymphatic: Negative for easy bruising Endo Endo: Negative for fatigue, excessive sweating or increased thirst/drinking Psych Psych: Negative for anxiety or depression Allergy Allergy/Immunology: Negative for hives, Negative for rash Cardiology Exam Const Appearance: cooperative, healthy appearing and no acute distress Nutritional Appearance: well nourished Orientation: alert, oriented x3 and oriented to person Head Head: normal to inspection, atraumatic and normocephalic Nose: external nose normal Face and Sinus: face symmetric Mouth: oral mucosae normal Eyes General: appearance normal, both eyes and all related structures Eyelids: eyelids normal Conjunctivae: conjunctivae normal Pupils: PERRL and normal by confrontation EOM: EOM intact bilaterally Neck Neck: normal visual inspection and full ROM Carotids: normal carotid upstroke Chest Chest inspection: normal inspection of the chest Auscultation: Bilateral: Clear to Auscultation Cardio Palpation: normal PMI Rate: regular rate Rhythm: regular rhythm Heart sounds: S1 normal and S2 normal GI GI: normal to inspection, no hepatosplenomegaly and bowel sounds present Neuro General: alert, oriented x3, awake, CN's II-XI intact bilaterally and moves all extremities Skin Skin: no rashes or lesions noted Extremities Pulses: Normal: Right Femoral Pulse, Left Femoral Pulse, Right Dorsalis Pedis Pulse, Left Dorsalis Pedis Pulse, Right Posterior Tibial Pulse, Left Posterior Tibial Pulse, Right Radial Pulse, Left Radial Pulse Lower Extremity Edema: None: Bilateral Psych Psychological: normal affect Assessment AND Plan 1. Atherosclerotic heart disease of [place] coronary artery without angina pectoris I25.10 Plan 1. Coronary artery disease: No exertional anginal symptoms at this time. No indication for any additional testing. Her heart rate and blood pressure well controlled. I recommend that she continue her baby aspirin, lisinopril, hydrochlorothiazide, Lopressor. 2. Hyperlipidemia E78.5 Plan 2. Hyperlipidemia: Her LDL and HDL cholesterol are under excellent control. Continue Zocor. 3. Return office in 6 months. This note was generated using a voice recognition system and there may be incorrect words, spelling or punctuation that were not noted when reviewing the office note prior to saving. Plan Detail Follow Up +6M (Shane) Coding Level of Care Code Off vis,est,level 3 Diagnoses Atherosclerotic heart disease of [place] coronary artery without angina pectoris I25.10 Hyperlipidemia E78.5 Coding Level of Care Code Off vis,est,level 3 Diagnoses Atherosclerotic heart disease of [place] coronary artery without angina pectoris I25.10 Hyperlipidemia E78.5 07/15/17 1134 <Electronically signed by Flex Hearn MD> Date [facility] Signature: Date (if applicable) CC: Guillermina Stanton MD PULMONARY VISIT REPORT Observed: 07/03/2017 Status: F Source: [place] 9:13 AM [facility] REPOSITORY [facility] [address] [place] [address] OFFICE VISIT Date of Service: 07/03/17 MR#: [id number] Acct: [id number] Name: DEDRA LARA Rep #: [id number] : 1945 Provider: Angus Erickson MD Age/Sex: 72/F Location[facility] Status: Signed Assessment AND Plan 1. Moderate persistent chronic asthma without complication J45.40 Plan Patient reports a long history of asthma and is currently on Symbicort therapy. Old records from Dr. Liz are not available at this time. Unclear given patient's long smoking history if patient also has an element of COPD. Volume status appears to be much improved compared to previous. Will obtain a walking oximetry to evaluate for possible exertional hypoxemia with COPD and a complete pulmonary function test for quantification and clarification of lung function. No change in medications at this time. Obtain complete PFT and walking oximetry. Orders Orders: 2. LADI (obstructive sleep apnea) G47.33 Plan Patient is reporting daily fatigue despite using BiPAP for 9-12 hours per night. It is unclear if this is secondary to uncontrolled LADI versus acute inflammatory response versus medications. We will continue to monitor clinically. Potential need for repeat polysomnogram in the future. Monitor clinically. Possible repeat polysomnogram in the future 3. Bronchiectasis without complication J47.9 Plan Patient did have bronchiectasis noted on CT scan of the chest during hospitalization. Patient is unaware of this is a previous diagnosis. Unclear if this is secondary to a possible autoimmune disease, prolonged uncontrolled asthma or previous lung infection. Patient does have an Acapella and has been using this at least twice a day. Patient is on Symbicort therapy. Will reassess the extent of bronchiectasis on repeat CT scan. Continue Symbicort, pulmonary toileting. Reassess on CT scan. Orders Orders: 4. Morbid obesity with BMI of 40.0-44.9, adult E66.01; Z68.41 Plan Mat discussion with patient about the role of weight loss and the overall disease plan of care. Patient understands that increased weight increases metabolic demand on both the heart and the lungs and could be leading to increased symptoms. Patient also understands that elevated weight could lead to uncontrolled sleep apnea. Patient voiced understanding and is attempting dietary modification. Encourage weight loss 5. Pleural effusion J90 Plan High clinical suspicion for transudative process on hospitalization. Patient has been much improved on salt intake. Will be able to monitor pleural effusion incidentally through CT scan of the chest for pulmonary nodules. No plans for intervention at this time. Patient's lower extremity edema appears much improved compared to previous. Would defer to cardiology, but patient may be able to be moved to a as needed Lasix regimen. Await clinical response to low-salt diet. Defer to cardiology, but consider transition to as needed Lasix Orders Orders: 6. Pulmonary nodules/lesions, multiple R91.8 Plan Patient went to peripherally based small subcentimeter nodules noted on recent imaging. Clinical suspicion is that this represents round atelectasis. However, given patient's significant smoking history of 44 pack years, will repeat CT scan in 3 months for reevaluation. No B symptoms or unintentional weight loss have been reported. Repeat CT scan prior to next visit Orders Orders: Plan Detail Follow Up 3 Months (A) HPI Chronic asthma: Chief Complaint: Shortness of breath and recent hospitalization Details: Patient is a 72-year-old female, currently the care of Dr. Stanton, who presents for evaluation secondary to shortness of breath and recent hospitalization. Patient does report that since discharge from the hospital she has become a salt ninja and has had significant success in decreasing her salt intake. Patient has noted that Lasix is not working as well and that the lower extremity swelling is almost gone. Patient states she will have some swelling throughout the day, but this is typically resolved by morning. Patient states that she has been on BiPAP therapy for over 2 years. Patient states that she has been using this on a daily basis and denies any complications with therapy including pain at the interface site, epistaxis or sore throat. Patient does feel that she is more fatigued during the day since she was admitted to the hospital. Patient is unclear if this is related to the acute illness, but overall feels that she does have some improvement when she wakes up in the morning. However, patient has been using her BiPAP 9-12 hours per day and is unclear on why she would remain fatigued with this much sleep. Patient has been seen by Dr. Liz in the past and was diagnosed with asthma. Patient has been on Singulair and Symbicort therapy for several years with good response. Patient denies any complications with therapy including thrush, hoarseness or sore throat. Patient states she does follow with Dr. Hearn for her cardiac issues. Patient is very concerned that she potentially could require a thoracentesis for her pleural effusion. Patient is hopeful that her modification of salt is going to make a difference. Patient denies any chest pain at this time. Patient does check her weight on a daily basis. Patient denies any syncopal or palpitation events. Patient does have a long history of smoking in the past, but has achieved smoking cessation. Patient states that she was not told that she had COPD by Dr. Liz. Patient has no intentions of reinitiating tobacco. Patient does report occasional cough productive of sputum, but is unaware of the color. Patient states she does not cough at night secondary to her BiPAP. Documentation reviewed 35 pages of documentation were reviewed from patient's primary care physician and recent hospitalization. Patient has been using nebulized albuterol, Symbicort and periodic prednisone tablets or shortness of breath. Patient also is on Singulair in therapy for congestive heart failure. Patient was recently admitted at [facility] from 06/24/2017 to 06/25/2017 with concerns for congestive heart failure, pleural effusion, coronary nodules and bronchiectasis. Patient was discharged without a thoracentesis. Intake Vital Signs07/03/17 Height 5 ft 1 in 07/03/17 Weight: 97.522 kg Intake Visit Reasons: Chronic asthma DME Vendor: [employer] Accompanied by: Self Allergies doxycycline Allergy (Severe, Verified 07/03/17 06:58) Rash nitrofurantoin Allergy (Severe, Verified 07/03/17 06:58) asthma attack tiotropium [From Spiriva with HandiHaler] Allergy (Severe, Verified 07/03/17 06:58) difficulty breathing hydrocodone bitartrate [From Vicodin] Allergy (Verified 07/03/17 06:58) Shortness of breath Penicillins Allergy (Verified 07/03/17 06:58) Hives azithromycin Adverse Reaction (Intermediate, Verified 07/03/17 06:58) Diarrhea cephalexin Adverse Reaction (Intermediate, Verified 07/03/17 06:58) Diarrhea indomethacin [From Indocin] Adverse Reaction (Intermediate, Verified 07/03/17 06:58) Diarrhea ketoprofen [From Orudis] Adverse Reaction (Intermediate, Verified 07/03/17 06:58) Diarrhea metformin [From Glucophage] Adverse Reaction (Intermediate, Verified 07/03/17 06:58) Diarrhea sulfamethoxazole [From Septra] Adverse Reaction (Intermediate, Verified 07/03/17 06:58) sore tongue trimethoprim [From Septra] Adverse Reaction (Intermediate, Verified 07/03/17 06:58) sore tongue oxycodone HCl [From Percocet] Adverse Reaction (Verified 07/03/17 06:58) Rash Medications Glipizide [Glucotrol Xl] 10 mg PO BID 09/02/14 [History Confirmed 07/03/17] Metoprolol Tartrate [Lopressor (beta rory)] 25 mg PO DAILY 09/02/14 [History Confirmed 07/03/17] Metoprolol Tartrate [Lopressor (beta rory)] 50 mg PO QHS 09/02/14 [History Confirmed 07/03/17] Aspirin [Aspirin, Baby] 81 mg PO DAILY 09/27/14 [History Confirmed 07/03/17] Montelukast [Singulair] 10 mg PO DAILY 09/21/15 [History Confirmed 07/03/17] Lisinopril/Hydrochlorothiazide [Zestoretic 20-25 mg Tablet] 1 ea PO DAILY #30 tab 10/27/15 [Rx Confirmed 07/03/17] Furosemide [Lasix] 40 mg PO DAILY 06/24/17 [History Confirmed 07/03/17] Insulin Glargine,Hum.rec.anlog [Basaglar Kwikpen U-100] 80 unit SQ DAILY 06/24/17 [History Confirmed 07/03/17] Lisinopril [Zestril] 20 mg PO QHS 06/24/17 [History Confirmed 07/03/17] Simvastatin [Zocor] 20 mg PO QHS 06/24/17 [History Confirmed 07/03/17] Symbicort 160-4.5 Mcg Inhaler 2 puff IH BID 06/24/17 [History Confirmed 07/03/17] traMADol [Ultram] 50 mg PO PRN PRN 06/24/17 [History Confirmed 07/03/17] albuterol sulfate HFA 90 mcg/actuation aerosol inhaler 2 puff INHALATION Q4H PRN g 07/03/17 [History Confirmed 07/03/17] PFSH Medical History LADI (obstructive sleep apnea) (Chronic) Asthma (Chronic) History of tobacco use (Chronic) Hypertension (Chronic) Hyperlipidemia (Chronic) History of TIA (transient ischemic attack) (Chronic) Morbid obesity with BMI of 40.0-44.9, adult (Chronic) Type II diabetes mellitus (Chronic) Social History Smoking Status: Former smoker how long ago did patient quit smokin, 1.5p/d second hand exposure: Yes alcohol intake: current alcohol intake frequency: holidays/special occasions only substance use type: does not use Review of Systems Const CONSTITUTIONAL: Positive weight loss (planned ); negative anorexia, body ache, chills, daytime sleepiness, fever(s), night sweats, oral thrush, stops breathing during sleep, weight loss, sleeping in chair, fatigue, weight gain, frequent colds, seasonal allergies, other, headache(s) or orthopnea EETM Ear Nose Throat Mouth: Positive hearing normal; negative hard of hearing, hoarseness, dry mouth in morning, change in vision, itchy eyes, eye pain, swallowing Difficulty, ear pain, nose bleed, mouth pain, nasal congestion, nasal discharge, post nasal drip, sinus pain, sinus pressure, sore throat, other or headache(s) Cardio Cardiovascular: Negative chest pain, chest pain at rest, chest pain with activity, irregular heart rhythm, edema, palpitations, murmur, other or shortness of breath when lying down Resp Respiratory: Positive as per HPI and cough (since June) cough: Positive non-productive; negative shortness of breath, pain with cough, wheezing, chest congestion, chest tightness, pain on inspiration, inhalers, increase use of rescue inhalers, snoring, apnea or other Gastro Gastrointestional: Negative bloody stools, change in appetite, difficulty swallowing, reflux, hematemesis, melena stool, loose stool, constipation or other Genitourinary: Negative blood in urine, nocturia, pain with urination or other Musc Musculoskeletal: Negative body pain, back pain, neck pain or other Skin/Breast Skin/Breast: Negative dry skin, itching, rash, unusual bruising, breast lump or other Neuro Neurological: Negative restless legs, confusion, weakness or other Psych Psychocological: Negative abnormal sleep pattern, anxiety, thoughts of hurting self/others, hopelessness or other Lymph Lymphatic: Negative easy bleeding, easy bruising, swollen lymph nodes or other Exam Const Constitutional: Positive conversant, cooperative, in no acute respiratory distress, healthy appearing, well developed, well nourished, good hygiene and obese Head Head: Positive normocephalic and atraumatic; negative cyanosis of lips/distal nose, microcephalic or macrocephalic Eyes Eye: Positive clear conjunctiva; negative nystagmus or scleral abnormality Ears Ear: Positive hearing normal and external ears normal; negative hard of hearing Nose Nose: Positive external nose normal, septum normal and no nasal discharge; negative epistaxis or nasal polyp Mouth Mouth: Positive oral mucosae normal, no lesions, good dentition and crowded posterior oropharynx; negative post nasal drip, malodorous breath or oral thrush present Mallampati Score: III: Mallampati Score Neck Neck: Positive normal visual inspection, thick neck, full ROM, trachea midline and female neck greater than 37 cm (15 in); negative lymphadenopathy or JVD Chest Wall Chest: Positive normal inspection of the chest; negative increased A/P diameter, symmetric chest movement, crepitus or tenderness Resp lung sounds: Positive clear to auscultation, normal expiratory time, diminished, prolonged expiratory time and normal respiratory effort; negative wheezes, rhonchi, rales or dullness to percussion Cardio Cardiac: Positive regular rate, regular rhythm, S1 normal and S2 normal; negative murmur, rub or gallop GI GI: Positive obese, normal to inspection and normal bowel sounds; negative distended or ascites Genitourinary: Positive deferred Musc Musculoskeletal: Positive steady gait and ROM normal; negative using an assistive device for ambulation, kyphosis or scoliosis Skin Pulmonary Skin Exam: Positive intact; negative rash, ulcers, lesion, erythema or dermal atrophy Pulses Pulse: Yes radial pulses present, Yes pulses normal x4 extremities Extremities Extremities: Yes capillary refill normal, No clubbing, No cyanosis, No edema, No stasis dermatitis Neuro Neurologic: Yes conversant, Yes no focal neuro deficits, Yes normal concentration, Yes understands questions, Yes cooperative, Yes normal cognition, Yes normal coordination Lymph Lymphatic: No lymphadenopathy Psych Appearance: Positive grossly normal Mental Status: Positive mental status grossly normal Mood: Positive congruent mood Affect: Positive normal affect Coding Level of Care Code Off vis,est,level 5 Diagnoses Moderate persistent chronic asthma without complication J45.40 Asthma severity: moderate Asthma persistence: persistent Asthma complication type: uncomplicated LADI (obstructive sleep apnea) G47.33 Bronchiectasis without complication J47.9 Bronchiectasis type: uncomplicated Morbid obesity with BMI of 40.0-44.9, adult E66.01; Z68.41 Pleural effusion J90 Pulmonary nodules/lesions, multiple R91.8 07/03/17 0913 <Electronically signed by Angus Erickson MD> Date Angus Erickson MD Cosigner Signature: Date (if applicable) CC: Guillermina Stanton MD 12 LEAD ELECTROCARDIOGRAM Observed: 06/30/2017 Status: F Source: [place] 8:58 PM [facility] REPOSITORY [facility] Cardiovascular Services [address] [place] [address] 12 Lead EKG 06/25/17 0542 MR#: [id number] Acct: [id number] Name: DEDRA LARA Rep #: [id number] : 1945 72 From: Flex Hearn MD Attending Dr: Ernst Doran Status: DIS IN Ordering Dr: Ernst Doran MD Date: 06/25/17 Location: [facility] Sex: F C Admitted: 06/24/17 Test Reason : AM EKG Blood Pressure : / mmHG Vent. Rate : 072 BPM Atrial Rate : 072 BPM P-R Int : 166 ms QRS Dur : 088 ms QT Int : 398 ms P-R-T Axes : 079 037 024 degrees QTc Int : 435 ms Normal sinus rhythm Normal ECG When compared with ECG of 24-JUN-2017 11:16, MANUAL COMPARISON REQUIRED, DATA IS UNCONFIRMED Confirmed by FLEX HEARN ([id number]), scientific publications editor NEFTALY STANTON ([id number]) on 06/27/2017 3:18:18 PM Referred By: DR DORAN Confirmed By:FLEX HEARN 06/27/17 1518 Date Flex Hearn MD CC: Ernst Doran; Guillermina Stanton MD Signed DISCHARGE SUMMARY Observed: 06/26/2017 Status: F Source: [place] 2:09 PM [facility] REPOSITORY [facility] Medical Records Department [address] [place] [address] Discharge Summary 06/25/17 1618 MR#: [id number] Acct: [id number] Name: DEDRA LARA Rep #: [id number] : 1945 72 From: Ernst Doran MD PCP: Guillermina Stanton MD Status: DIS IN Y Location: [place] [address] Discharge Date and Diagnosis Date of Admission: 06/24/17 Date of Discharge: 06/25/17 - Primary Discharge Diagnosis #1 acute non-ST elevation VT. #2 left lower lung nodules. #3 elevated d-dimer, CTA negative for PE or dissection. #4 recent history of pneumonia, completed treatment as outpatient. - Secondary Discharge Diagnosis Chronic Problems Asthma (Chronic) History of tobacco use (Chronic) in remission, 66-pk-yr history Hypertension (Chronic) Hyperlipidemia (Chronic) History of TIA (transient ischemic attack) (Chronic) Morbid obesity with BMI of 40.0-44.9, adult (Chronic) Type II diabetes mellitus (Chronic) Hospital Course and Treatment Imaging Results: Clinical Impression(s) from Imaging Studies Chest X-Ray 06/24/17 08:27 IMPRESSION: Degenerative changes, as described above. No demonstrated acute cardiopulmonary process. No interval change Electronically Signed: Colt Brown MD at 8:56 EDT , Service support , Chest CTA 06/24/17 09:15 IMPRESSION: Small right pleural effusion with right basilar atelectasis. Bibasilar scarring with areas of bronchiectasis. There are 2 small noncalcified nodules in the left lower lobe as described. Electronically Signed: Edilson Vaughn MD at 10:19 EDT Tel [phone], Service support , Dr. Hearn, cardiology. Dr. Erickson, pulmonology. Operations: - Procedures: Cardiac catheterization, EKG Summary of Care Provided: Patient seen and examined on the day of discharge and appeared to be stable to be discharged home. His shortness of breath improved as well as cough. She has no more chest pain. Her vital signs are stable and she was able to maintain her pulse ox on room air. - Physical Exam General: Alert, Oriented x3, Cooperative, No apparent distress. HEENT: Atraumatic, PERRLA, EOMI. Neck: Supple, No JVD, Negative Carotid Bruits, Trachea Midline, Thyroid Normal. Lungs: Clear to auscultation, Normal air movement, No rhonchi, No wheeze, No rales. Cardiovascular: Regular rate, Regular Rhythm, Normal S1, Normal S2, PMI Normal. Abdomen: Bowel Sounds Present, Soft, Non Tender, Non-Distended, No Hepato-splenomegaly. Extremities: No clubbing, No cyanosis, No edema Skin: No rashes, No breakdown Neurological: Neuro grossly intact Hospital course: The patient is a 72 year old F presented to the emergency room because of sudden onset retrosternal chest pain and she was found to have acute non- ST elevation VT. Patient was treated for pneumonia as outpatient with antibiotics and she completed 7 days of antibiotics. Her initial troponin was negative and subsequent troponin was highly elevated. An EKG revealed no acute ST elevation. A chest x-ray showed no acute infiltrate, consolidation or effusion. CTA chest done for elevated d-dimer and showed no evidence of PE or dissection but did show small right pleural effusion and 2 small nodules in the left lower lobe. Cardiology consulted and patient was taken for cardiac catheterization that showed nonobstructive coronary artery disease and recommendations was for to continue medical treatment. Pulmonology consulted for left lower lobe small nodules and recommended to repeat CT scan chest as well as lung function test that will be done as outpatient. She has more right- sided pleural effusion which could be due to the recent pneumonia that she was treated for. As mentioned above, patient completed 1 week treatment for antibiotics for pneumonia. She remained afebrile throughout admission and no leukocytosis. Patient discharged home in a stable medical condition, discharged on Lasix 40 mg p.o. daily, Plavix discontinued according to cardiology, other home medications continued including beta blockers, lisinopril and aspirin, plan to follow- up with PCP in 2-4 weeks, follow-up with pulmonology this coming week and follow-up with cardiology according to Dr. Hearn recommendation. Discharge Activity: Return to Normal Activity Weight Bearing Status: Weight bearing as tolerated Call your doctor if you observe: Fever of 101 or Higher, Shortness of breath, Dizziness, Fainting spells, Chest pain, Increased palpitations (irregular heartbeat), Uncontrolled pain Home Medications: Medications to take at Discharge Glipizide [Glucotrol Xl] 10 mg PO BID 09/02/14 Metoprolol Tartrate [Lopressor (beta rory)] 25 mg PO DAILY 09/02/14 Metoprolol Tartrate [Lopressor (beta rory)] 50 mg PO QHS 09/02/14 Aspirin [Aspirin, Baby] 81 mg PO DAILY 09/27/14 Montelukast [Singulair] 10 mg PO DAILY 09/21/15 Lisinopril/Hydrochlorothiazide [Zestoretic 20-25 mg Tablet] 1 each PO DAILY #30 tablet 10/27/15 Furosemide [Lasix] 40 mg PO DAILY 06/24/17 Insulin Glargine,Hum.rec.anlog [Basaglar Kwikpen U-100] 80 unit SQ DAILY 06/24/17 Lisinopril [Zestril] 20 mg PO QHS 06/24/17 Simvastatin [Zocor] 20 mg PO QHS 06/24/17 Symbicort 160-4.5 Mcg Inhaler 2 puff IH BID 06/24/17 traMADol [Ultram] 50 mg PO PRN PRN 06/24/17 Primary Care Physician: Guillermina Stanton MD [Primary Care Provider] - Please follow up with your Primary Care Physician in: 3-4 WEEKS. Please Follow Up With: Angus Erickson MD When: SCHEDULED. Please Follow Up With: Flex Hearn MD When: SCHEDULED. Please Follow Up With: Guillermina Stanton MD Disposition: Home Minutes spent on discharge:: 34 Patient Condition:: Stable Medical Necessity - Tobacco Use Smoking Status: Former smoker Tobacco Use: Cigarettes Meaningful Use Info Meaningful Use Diagnoses (Choose all that apply): AMI - AMI Aspirin given w/in 24hrs of arrival?: Yes ASA at discharge?: Yes Statins at discharge?: Yes Bradley/ARB at discharge?: Yes Beta Rory at discharge?: Yes Done w/ Acute VT measure.: Yes Code Visit Inpatient E AND M: [id number] Disch Hosp 06/26/17 1409 <Electronically signed by Ernst Doran MD> Date Ernst Doran MD Cosigner Signature (if applicable): Date CC: Angus Erickson MD; Flex Hearn MD; Ernst Doran; Guillermina Stanton MD Signed 12 LEAD ELECTROCARDIOGRAM Observed: 06/25/2017 Status: F Source: [place] 3:19 PM [facility] REPOSITORY [facility] Cardiovascular Services [address] [address] 12 Lead EKG 06/24/17 1116 MR#: [id number] Acct: [id number] Name: DEDRA LARA Rep #: [id number] : 1945 72 From: Richard Sprague MD Attending Dr: Ernst Doran Status: DIS IN Ordering Dr: Steffanie Simms MD Date: 06/24/17 Location: [facility] Sex: F C Admitted: 06/24/17 Test Reason : REPEAT Blood Pressure : / mmHG Vent. Rate : 074 BPM Atrial Rate : 074 BPM P-R Int : 164 ms QRS Dur : 086 ms QT Int : 380 ms P-R-T Axes : 064 018 029 degrees QTc Int : 421 ms Normal sinus rhythm Poor R wave progression Milton septal VT, age undetermined, cannot be excluded Confirmed by NIRMAL DONALDSON, RICHARD ([id number]), scientific publications editor NEFTALY STANTON ([id number]) on 06/25/2017 3:18:55 PM Referred By: BRENDAN Confirmed By:RICHARD SPRAGUE MD 06/25/17 7978 Date Richard Sprague MD CC: Steffanie Simms MD; Ernst Stanton MD Signed 12 LEAD ELECTROCARDIOGRAM Observed: 06/25/2017 Status: F Source: [place] 3:18 PM [facility] REPOSITORY [facility] Cardiovascular Services [address] [place] [address] 12 Lead EKG 06/24/17 0824 MR#: [id number] Acct: [id number] Name: DEDRA LARA Gita Rep #: [id number] : 1945 72 From: Richard Sprague MD Attending Dr: Ernst Doran Status: DIS IN Ordering Dr: Steffanie Simms MD Date: 06/24/17 Location: [facility] Sex: F C Admitted: 06/24/17 Test Reason : CP Blood Pressure : / mmHG Vent. Rate : 136 BPM Atrial Rate : 144 BPM P-R Int : 198 ms QRS Dur : 088 ms QT Int : 294 ms P-R-T Axes : 000 013 023 degrees QTc Int : 442 ms Atrial fibrillation with RVR Nonspecific ST abnormality Poor R wave progression Milton septal VT, age undetermined, cannot be excluded Abnormal ECG Confirmed by NIRMAL DONALDSON, RICHARD ([id number]), scientific publications editor NEFTALY STANTON ([id number]) on 06/25/2017 3:18:09 PM Referred By: BRENDAN Confirmed By:RICHARD SPRAGUE MD 06/25/17 1518 Date Richard Sprague MD CC: Steffanie Simms MD; Ernst Stanton MD Signed DISCHARGE INSTRUCTION Observed: 06/25/2017 Status: F Source: [place] 1:57 PM [facility] HOSPITAL REPOSITORY [facility] Medical Records Department [address] [place] [address] Instructions for Home/Discharge Instructions 06/25/17 1355 MR#: [id number] Acct: [id number] Name: DEDRA LARA Gita Rep #: [id number] : 1945 72 From: Ernst Doran MD PCP: Guillermina Stanton MD Status: ADM IN You will use the following diet at home:: Calorie/Carbohydrate Controlled (specify 1200, 1400, etc) - 1800 mohamud, Cardiac Your food should be the consistency of: Regular Discharge Activity: Return to Normal Activity Weight Bearing Status: Weight bearing as tolerated Call your doctor if you observe: Fever of 101 or Higher, Shortness of breath, Dizziness, Fainting spells, Chest pain, Increased palpitations (irregular heartbeat), Uncontrolled pain Allergies/Adverse Reactions: Allergies hydrocodone bitartrate [From Vicodin] Allergy (Verified 06/24/17 08:13) Shortness of breath Penicillins Allergy (Verified 06/24/17 08:13) Hives oxycodone HCl [From Percocet] Adverse Reaction (Verified 06/24/17 08:13) Rash Medications to take at Discharge Glipizide [Glucotrol Xl] 10 mg PO BID 09/02/14 Metoprolol Tartrate [Lopressor (beta rory)] 25 mg PO DAILY 09/02/14 Metoprolol Tartrate [Lopressor (beta rory)] 50 mg PO QHS 09/02/14 Aspirin [Aspirin, Baby] 81 mg PO DAILY 09/27/14 Montelukast [Singulair] 10 mg PO DAILY 09/21/15 Lisinopril/Hydrochlorothiazide [Zestoretic 20-25 mg Tablet] 1 each PO DAILY #30 tablet 10/27/15 Furosemide [Lasix] 40 mg PO DAILY 06/24/17 Insulin Glargine,Hum.rec.anlog [Basaglar Kwikpen U-100] 80 unit SQ DAILY 06/24/17 Lisinopril [Zestril] 20 mg PO QHS 06/24/17 Simvastatin [Zocor] 20 mg PO QHS 06/24/17 Symbicort 160-4.5 Mcg Inhaler 2 puff IH BID 06/24/17 traMADol [Ultram] 50 mg PO PRN PRN 06/24/17 Primary Care Physician: Guillermina Stanton MD [Primary Care Provider] - Please follow up with your Primary Care Physician in: 3-4 WEEKS. Please Follow Up With: Angus Erickson MD When: SCHEDULED. Please Follow Up With: Flex Hearn MD When: SCHEDULED. 06/25/17 9635 <Electronically signed by Ernst Doran MD> Date Ernst Doran MD CC: Angus Erickson MD; Trae Ramos MD; Guillermina Stanton MD CONSULTATION Observed: 06/25/2017 Status: F Source: [place] 11:02 AM [facility] REPOSITORY [facility] Medical Records Department [address] [place] [address] Consultation 06/24/17 1627 MR#: [id number] Acct: [id number] Name: DEDRA LARA Rep #: [id number] : 1945 72 From: Trae Ramos MD PCP: Guillermina Stanton MD Status: ADM IN Location: [place] [address] Reason for Consult Date of Consultation: 06/24/17 Reason for Consultation: Chest pain. History of Present Illness: The patient is a 72 year old F with past medical history significant for hypertension hypercholesterolemia as well as coronary artery disease who presented to the emergency room because of chest pain. Her symptoms started last night when she was sitting in her chair with substernal chest pain, described as pressure-like pain, 7- 8 out of 10 in severity, not radiating, associated with mild shortness of breath, nausea and diaphoresis, lasted for around 6 hours without aggravating or relieving factors. She described it as an elephant sitting on her chest in her own words. The patient persisted until she came to the emergency room and at this time, she thinks her pain is getting better. Around 12 days ago, she went to her PCPs office for cough and sputum production and she was treated for pneumonia as well as probable asthma exacerbation with Levaquin and prednisone. She completed course of 7 days of Levaquin as well as course of prednisone. She mentioned that after the antibiotics and prednisone, she feels better but she continued to have persistent dry cough. She denied fever or chills. In the emergency room, she was afebrile, heart rate was stable, pressure was fluctuating but slightly elevated and pulse ox was 96% on 2 L. Her routine blood work is remarkable for mild leukocytosis, creatinine of 1.15, otherwise normal. Her initial troponin is negative. EKG revealed normal sinus rhythm without evidence of acute ischemic changes. D-dimer was elevated for which CTA chest done and revealed no evidence of PE or dissection, left lower lobe nodules and small right pleural effusion. Follow-up troponin was noted to be abnormal. In 2014 she had presented with chest discomfort and a non- ST elevation myocardial infarction and underwent a cardiac catheterization by Dr. Rafi Hearn which demonstrated left main coronary artery with no significant disease, a left anterior descending artery with a 30% ostial stenosis in the left anterior descending artery wrapping around the apex of the left ventricle with 30% stenosis noted in the mid segment, left circumflex artery which was a moderate size with a significant 70% stenosis of the bifurcation of a small inferior branch of the obtuse marginal vessel as well as a very small superior branch which was thought to be the patient's culprit lesion. The right coronary artery was a large dominant vessel with 30% proximal to mid stenotic region with the remainder of the vessel being free of significant disease. Based on the above medical therapy was recommended and she has continued on the above including clopidogrel Past Medical History Allergies/Adverse Reactions: Allergies hydrocodone bitartrate [From Vicodin] Allergy (Verified 06/24/17 08:13) Shortness of breath Penicillins Allergy (Verified 06/24/17 08:13) Hives oxycodone HCl [From Percocet] Adverse Reaction (Verified 06/24/17 08:13) Rash Home Medications: Ambulatory Orders Medication Instructions Recorded Past Medical History (Chronic Problems): Chronic Problems Asthma (Chronic) History of tobacco use (Chronic) Hypertension (Chronic) Hyperlipidemia (Chronic) History of TIA (transient ischemic attack) (Chronic) Morbid obesity with BMI of 40.0-44.9, adult (Chronic) Type II diabetes mellitus (Chronic) Surgical History: cholecystectomy, tonsillectomy, - Psychiatric History: No pertinent psych hx DIRECTOR OF MATH History: No pertinent DIRECTOR OF MATH history - *Family History Maternal History Items: Diabetes, - - age 85 Mother w/ MS. Paternal History Items: Diabetes, Heart Disease - Father w/ VT, age 62., Hypertension Lives: Alone Smoking Status: Former smoker Alcohol: None Drugs: None Review of Systems - Review of Systems General: Denies: Fever, Night Sweats, Fatigue Cardiovascular: Reports: Chest Discomfort at Rest. Denies: Chest Discomfort, Shortness of Breath, Orthopnea, PND, Peripheral Edema, Palpitations, Lightheadedness, Dizziness, Near Syncope, Syncope Respiratory: Denies: Cough, Sputum Production, Hemoptysis Gastrointestinal: Denies: Hematemesis, Hematochezia, Melena Genitourinary: Denies: Dysuria, Hematuria Skin: Denies: Rash Subjectve: Pleasant lady in no apparent distress. Objective: Vital Signs Temp Pulse Resp BP Pulse Ox 98.4 F 87 18 158/64 H 97 06/24/17 16:04 06/24/17 16:04 06/24/17 16:04 06/24/17 16:04 06/24/17 16:04 Oxygen Flow Rate (L/min) 2 Oxygen Delivery Method Nasal Cannula Weight: 226 lb 13.69 oz Body Mass Index (BMI) 42.8 General: Awake, Alert, Oriented x 3 HEENT: PERRL, EOMI, Sclera Non Icteric Neck: Supple, Good ROM, No Lymph Node Enlargement Lungs: Clear to auscultation Cardiovascular: Regular Rhythm, Normal S1, Normal S2, No Murmurs, No Rubs, No Gallops Vascular: No Carotid Bruits, Normal Femoral Pulses, Normal Radial Pulses, Normal Dorsalis Pedal Pulse, Normal Posterior Tibial Pulses Abdomen: Bowel Sounds Present, Soft, Non Tender, No HSM, No Organomegaly Extremities: No Cyanosis, No Clubbing, No edema Neurological: No Focal Motor or Sensory Deficit 06/24/17 13:05: Troponin I 1.22 H* Rhythm: EKG: Normal sinus rhythm with nonspecific ST changes. Assessment/Plan 1. Non-ST elevation myocardial infarction. She presents with chest discomfort which is rather concerning and has abnormal cardiac enzymes. She has previously documented coronary artery disease. And has been compliant with medication. On the basis of the above I would recommend that we forego any noninvasive stress testing and proceed with a cardiac catheterization. The risk benefits and alternatives have been explained to her she understands and agrees to proceed. She will continue on her beta-rory aspirin and clopidogrel as well as a statin. This will be arranged for sometime in a.m. on Saturday. 2. Hypertension. She does have a history of hypertension and on medical therapy and the plan will be to continue the same without making significant changes. 3. Risk factor modification. Weight loss has been encouraged as well as continued use of his statin. Thank you for allowing me to participate in the care of your patient. Please don't hesitate to call if any issues arise 06/25/17 1102 <Electronically signed by Trae Ramos MD> Date Trae Ramos MD Cosigner Signature (if applicable): Date CC: Angus Erickson MD; Trae Ramos MD; Guillermina Stanton MD Signed CONSULTATION Observed: 06/25/2017 Status: F Source: [place] 10:57 AM [facility] REPOSITORY [facility] Medical Records Department [address] [place] [address] Consultation 06/25/17 0856 MR#: [id number] Acct: [id number] Name: DEDRA LARA Rep #: [id number] : 1945 72 From: Marti Chisholm SANITARIAN-C PCP: Guillermina Stanton MD Status: ADM IN Y [id number] ADDENDUM by Angus Erickson MD on 06/25/17 at 1057 Code Visit Patient seen and examined independently in conjunction with nurse practitioner. All data, including note below, was personally reviewed and I agree with the added comments. Patient gives a long history of asthma that was confirmed by PFT, but was lost to follow-up secondary to differences in ideology. Patient does report a cough on a daily basis in the morning productive of clear to white sputum. Patient presented secondary to chest pain similar to previous VT. Patient denied any recent fever, chills, nausea or vomiting. No orthopnea had been reported. Patient reportedly was supposed to see me next week as a new appointment. During this hospitalization, patient was noted to have a pleural effusion, bronchiectasis and 2 subcentimeter nodules. A cardiogram showed severe mitral annular calcification, enlarged left atrium and an RVSP of 42. Patient had a heart catheterization that showed no significant change from previous. Patient has been compliant with her BiPAP 19/13 cm of water with sleep. Physical exam was independently performed and I agree as listed below. Patient does have lower extremity edema noted. Patient does have some dullness to percussion posteriorly and diminished anteriorly. Laboratory data was reviewed and was notable for significant elevation in troponin, increased baseline creatinine at 1.13 and slight anemia at 10.2. CT of the chest was personally reviewed and does show a right-sided pleural effusion, bronchiectasis and 2 subcentimeter peripherally located left lower lobe nodules. It is not a lymphadenopathy is appreciated. Assessment and plan Multiple pulmonary diagnoses including bronchiectasis, pleural effusion and pulmonary nodules. Clinical significance for round atelectasis with pulmonary nodules as they are peripherally located and relatively smooth in appearance. Patient does have an extensive smoking history, so repeat CT scans will be necessary in the future. Patient also has bronchiectasis and would benefit from initiation of pulmonary toileting with Acapella therapy. Pleural effusion has high likelihood of being transudative in nature. Did discuss with the patient about thoracentesis, but she would like to work with lowering her salt intake and using diuretic therapy. Patient is open to meeting with a dietitian to discuss a low-salt diet. She can follow-up with me at her regularly scheduled appointment. Inpatient E AND M: 19405 Init Hosp L3 06/25/17 1057 <Electronically signed by Angus Erickson MD> Date Angus Erickson MD cc: Angus Erickson MD; Trae Ramos MD; Guillermina Stanton MD * Signed Problem List (1) History of tobacco use Status: Chronic Comment: in remission, 66-pk-yr history (2) Hypertension Status: Chronic (3) Hyperlipidemia Status: Chronic (4) History of TIA (transient ischemic attack) Status: Chronic (5) Morbid obesity with BMI of 40.0-44.9, adult Status: Chronic (6) Type II diabetes mellitus Status: Chronic (7) Asthma Status: Chronic Reason for Consult Date of Consultation: 06/25/17 Reason for Consultation: LLL lung nodules History of Present Illness: The patient is a 72 year old F with past medical history as below who presented to the ED secondary to sudden onset of chest pressure that started the evening before presentation while at rest. She was sitting in her recliner watching TV, had some mild shortness of breath, nausea, and diaphoresis associated with the pain. The nausea did resolve by the time she arrived to the ER. The pain lasted approximately 5 or 6 hours. Patient reports she developed a cough, increased sputum production, and fatigue on . She went to her PCP's office on 06/12/17, who ordered a chest x-ray showed no acute abnormality. Patient reports she was told she had pneumonia superimposed on asthma exacerbation, and was placed on Levaquin and prednisone. Patient noted improvement but still having coarse, nonproductive cough. Denies any fever chills, hemoptysis, weight change, or orthopnea. She does have chronic lower extremity edema which she takes Lasix for. Workup in the ED included chest x-ray which showed degenerative changes of the spine, interstitial fibrotic changes of the lungs and stable blunting of the right costophrenic angle. D-dimer is elevated 1.97, so a CTA of the chest was obtained. This showed a small right pleural effusion with right basilar atelectasis, bibasilar scarring with areas of bronchiectasis, and 2 small noncalcified nodules in the left lower lobe measuring 4.9 mm and 5.6 mm. Lab work was remarkable for mild leukocytosis of 12,800, hemoglobin 11.9. Chemistry remarkable for BUN of 20 and creatinine 1.15. Glucose was 230. Urinalysis relatively unremarkable. Initial troponin was negative, however troponins peaked at 1.96. Patient underwent diagnostic cardiac catheterization that was reportedly similar to the results in 2015, no intervention required. Patient had prior heart catheterization in 2015 secondary to non-STEMI and medical therapy was recommended, she was placed on Plavix. The patient had a polysomnogram 01/06/16, at which time it is recommended she wear her CPAP mask with pressures of 19/13 with humidification. Patient reports compliance with her CPAP. She denies any daytime sleepiness, hypersomnia, nocturia. Patient has never required any home oxygen supplementation. She did follow with Dr. Liz several years ago at which time she had pulmonary function tests and was told she had asthma. She has not been to see him in over 5 years. Her PCP, Dr. Guillermina Stanton assist with management for asthma. She currently is on Symbicort and Singulair, also takes Proair PRN and also has a nebulizer at home that she uses when she gets sick. She does feel that the Symbicort helps. Patient complains of dyspnea on exertion that is chronic for her. She is unable to walk from the house to her car without becoming short of breath. She has tried using her rescue inhaler which helps minimally. 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 No history of TB or asbestos exposure. She does have a [id number]-[id number]-[id number] history of smoking, quit 14 years ago. Patient also had echocardiogram 10/17/15 that showed hyperdynamic left ventricular systolic function with an estimated EF of 75%, moderate concentric LVH, severely enlarged left atrium, severe mitral annular calcification with extension onto the posterior mitral valve leaflet with partial leaflet restriction, moderate mitral valve stenosis, trivial MVI and trivial TVI, mild focal aortic valve calcification, RVSP estimated 42 mmHg. Past Medical History Past Medical History (Chronic Problems): Chronic Problems Asthma (Chronic) History of tobacco use (Chronic) in remission, 66-pk-yr history Hypertension (Chronic) Hyperlipidemia (Chronic) History of TIA (transient ischemic attack) (Chronic) Morbid obesity with BMI of 40.0-44.9, adult (Chronic) Type II diabetes mellitus (Chronic) Allergies hydrocodone bitartrate [From Vicodin] Allergy (Verified 06/24/17 08:13) Shortness of breath Penicillins Allergy (Verified 06/24/17 08:13) Hives oxycodone HCl [From Percocet] Adverse Reaction (Verified 06/24/17 08:13) Rash Home Medications: Ambulatory Orders Medication Instructions Recorded Surgical History: cholecystectomy, tonsillectomy, - Psychiatric History: No pertinent psych hx DIRECTOR OF MATH History: No pertinent DIRECTOR OF MATH history Lives: Alone Smoking Status: Former smoker Tobacco Use: Cigarettes Alcohol: None Drugs: None - *Family History Maternal History Items: Diabetes, - - age 85 Mother w/ MS. Paternal History Items: Diabetes, Heart Disease - Father w/ VT, age 62., Hypertension Review of Systems Constitutional: Reports: Fatigue. Denies: Anorexia, Chills, Fever, Night Sweats, Malaise, Weight Change Eyes: Denies: Vision Change HEENT: Reports: Post Nasal Drip. Denies: Difficulty Swallowing, Dysphasia, Nasal bleeding, Nasal Congestion, Sinus Congestion, Sore Throat Cardiovascular: Reports: Chest Tightness - resolved, Edema. Denies: Chest Pain, Chest Pressure, Light Headedness, Orthopnea, Palpitations, Paroxysmal Noc. Dyspnea, Syncope Respiratory: Reports: Cough, Shortness of breath upon exertion, Wheezing. Denies: Hemoptysis, Shortness of breath at rest, Sputum production Gastrointestinal: Reports: Nausea - resolved. Denies: Abdominal Pain, Constipation, Dyspepsia, Hematemesis, Hematochezia, Melena, Vomiting Genitourinary: Reports: Urgency. Denies: Dysuria, Frequency, Hematuria, Nocturia Gynecological: Denies: Breast symptoms Musculoskeletal: Reports: - - intermittent leg cramping. Denies: Muscle pain Skin: Reports: - - R groin cath site puncture. Denies: Rash, Wounds Neurological: Denies: Balance problems, Change in Speech, Confusion, Focal weakness, Numbness, Tingling, Tremor, Seizures Psychiatric: Denies: Anxiety, Depression Endocrine: Denies: Change in Body Habitus, Polydipsia, Polyuria Hematologic/ Lymphatic: Reports: Easy Bruising, Easy Bleeding. Denies: Adenopathy, Anemia, Hx of blood clot Subjective: Patient was seen and examined. She is lying flat on her back in bed secondary to heart cath this morning she is on bedrest. Denies any shortness of breath at rest. Does have a harsh, nonproductive cough. Denies any fever or chills. Her nausea and chest pain have resolved. Objective: Clinical Impression(s) from Imaging Studies Chest X-Ray 06/24/17 08:27 IMPRESSION: Degenerative changes, as described above. No demonstrated acute cardiopulmonary process. No interval change Electronically Signed: Colt Brown MD at 8:56 EDT , Service support , Chest CTA 06/24/17 09:15 IMPRESSION: Small right pleural effusion with right basilar atelectasis. Bibasilar scarring with areas of bronchiectasis. There are 2 small noncalcified nodules in the left lower lobe as described. Electronically Signed: Edilson Vaughn MD at 10:19 EDT Tel [phone], Service support , - Physical Exam General: Alert, Oriented x3, Cooperative, No apparent distress, Well developed, Well nourished, - - obese. No conversational dyspnea HEENT: Atraumatic, Normocephalic Oral: Moist Mucosa Neck: Supple, No Nodes, Trachea Midline, - - large neck circumference with redundant soft tissue Lungs: No rhonchi, No wheeze, No rales, Diminished, - - anterior coburn auscultated only, on bedrest for cath Cardiovascular: Regular rate, Regular Rhythm, Normal S1, Normal S2, No murmurs, No rub noted, No Gallop Abdomen: Bowel Sounds Present, Soft, Non Tender, Non-Distended, Obese Extremities: No clubbing, No cyanosis, Capillary Refill Less than 3 Seconds, No Calf Tenderness, Edema - trace bilat LE, Peripheral Pulses Normal Skin: No rashes, No breakdown, - - R groin opsite s/p cath Musculoskeletal: No Tenderness to Palpation of Joints or Extremities, No Muscle Wasting Lymphatic: No Cervical, Supraclavicular, or Inguinal Adenopathy Neurological: Cranial nerves II-XII grossly intact, Neuro grossly intact, Motor Exam 5/5 strength throughout Psych/Mental Status: Alert and oriented to time, place, person, mood and affect Vital Signs Temp Pulse Resp BP Pulse Ox 98.6 F 64 18 176/58 H 95 06/25/17 05:55 06/25/17 06:52 06/25/17 06:52 06/25/17 06:08 06/25/17 06:52 Oxygen Flow Rate (L/min) 2 Oxygen Delivery Method Room Air Weight: 226 lb 13.69 oz Body Mass Index (BMI) 42.8 Intake and Output for Last 24 Hours Intake Total 480 / 480 Output Total 400 / 400 Balance 480 / 480 -400 / -400 Laboratory Tests Past 24 Hrs WBC 9.0 RBC 3.15 L Hgb 10.2 L Hct 30.5 L MCV 96.8 MCH 32.4 H WBC RBC Hgb Hct WBC RBC Hgb Hct MCV MCH MCHC RDW RDW Differential Plt Count MPV Immature Gran % (Auto) Neut % (Auto) Lymph % (Auto) POC Glucose POC Glucose 136 H 78 173 H POC Glucose 216 H Assessment/Plan RECOMMENDATIONS 1. Wean oxygen supplementation to keep saturations >90%. 2. Encourage incentive spirometer and Acapella 3. Increase activity as tolerated after bedrest complete 4. Continue aerosols 5. Gentle diureses for effusion given dye load 6. Cardiology following 7. Ambulatory pulse ox prior to discharge 8. Patient has appointment in the pulmonary clinic next week, at which time baseline pulmonary function test can be obtained and follow up for questionable lung nodules. A repeat CT of the chest can be ordered at that time as well. 9. Okay to discharge today from pulmonary perspective, once bedrest is up IMPRESSIONS 1. Left lower lobe lung nodules/pleural effusions CT of the chest showed 2 small lung nodules in the left lower lobe. Patient will require repeat CT of the chest for follow-up in 3-6 months. This can be arranged in the pulmonary clinic. Patient did have pleural effusion on imaging. Also has evidence of bronchiectasis and atelectasis seen on CT, which could result in similar appearance on imaging. Aggressive pulmonary toileting with Acapella and incentive spirometer, patient should continue at home. Pleural effusion may be etiology of her ongoing cough. She would benefit from more aggressive diuresis, however she has a mildly elevated creatinine with recent dye load for her heart cath. She will follow-up in the pulmonary clinic next week as scheduled. Okay to discharge from pulmonary perspective. 2. Self-reported asthma, known sleep apnea Does not appear to be an exacerbation at this time, no significant wheezing. Was just treated with steroids, no indication for repeating at this time. Has been compliant with her CPAP at home. Her last polysomnogram was in 2016, would benefit from repeat study to ensure patient is on the correct settings. 3. Type 2 diabetes mellitus/morbid obesity/hyperlipidemia/hypertension/history of tobacco abuse, in remission Complicates care, management, recovery, and prognosis. Patient advised on benefits of weight loss. Encouraged ongoing smoking cessation. Continue home medications as indicated. Thank you for the opportunity to participate in this patient's care, please not hesitate contact us with any further questions or concerns. This note was generated with [employer] dictation software. It may contain incorrect words, spelling, and punctuation that were not noted in checking the note before signing. 06/25/17 1042 <Electronically signed by Marti LANGSTON> Date Marti Chisholm NP-C Geneter Signature (if applicable): Date CC: Angus Erickson MD; Trae Ramos MD; Guillermina Stanton MD Signed BEDSIDE GLUCOSE Collected: 06/25/2017 Status: F Source: [place] 10:04 AM [facility] REPOSITORY TYPE CODE TESTS RESULT OUT OF RANGE REFERENCE UNITS LAB L501.080 70-110 mg/dL Normal BEDSIDE GLU 83 Result Comment: MANAGEMENT OF PATIENT CARE PER NURSING PROTOCOL Performed By: #### L501.080 #### [facility] Point of Care [address] [place], [place] [id number] BEDSIDE GLUCOSE Collected: 06/25/2017 Status: F Source: [place] 6:25 AM [facility] REPOSITORY TYPE CODE TESTS RESULT OUT OF REFERENCE UNITS RANGE LAB L501.080 70-110 mg/dL High BEDSIDE GLU 136 Result Comment: MANAGEMENT OF PATIENT CARE PER NURSING PROTOCOL Performed By: #### L501.080 #### [facility] Point of Care [address] [place] [address] BEDSIDE GLUCOSE Collected: 06/25/2017 Status: F Source: [place] 6:00 AM [facility] REPOSITORY TYPE CODE TESTS RESULT OUT OF RANGE REFERENCE UNITS LAB L501.080 70-110 mg/dL Normal BEDSIDE GLU 78 Result Comment: MANAGEMENT OF PATIENT CARE PER NURSING PROTOCOL Performed By: #### L501.080 #### [facility] Point of Care [address] [place] [address] URINALYSIS, COMPLETE Collected: 06/25/2017 Status: F Source: [place] 3:40 AM [facility] REPOSITORY Order Comment: How was Urine Obtained? CLEAN CATCH TYPE CODE TESTS RESULT OUT OF RANGE REFERENCE UNITS LAB L400.3000 Yellow COLOR Normal Yellow LAB L400.3050 Clear Normal CLARITY Clear LAB L400.3200 Normal mg/dl Normal GLUCOSE, UR Normal LAB L400.3300 Negative mg/dL Normal BILIRUBIN URINE Negative LAB L400.3400 Negative mg/dl Normal KETONE UR Negative LAB L400.3465 1.002-1.030 Normal SP.GR. DIPSTX 1.010 LAB L400.3550 5.0 - 8.0 pH UR Normal 7.0 LAB L400.3600 Negative mg/dl PROT Normal DIPSTX Negative LAB L400.3700 Normal mg/dl High 1 UROBILI LAB L400.3750 Negative Normal NITRITE UR Negative LAB L400.3780 Negative /ul Normal OCCULT BLOOD-UR Negative LAB L400.3800 Negative /ul High LEUK 25 ESTERASE LAB L400.4050 0-5 /hpf WBC Normal 0-5 SEEN LAB L400.4100 0-5 /hpf 0 Normal RBC-UA SEEN LAB L400.4150 5-10 /hpf SQUAM Normal EPI 0-5 SEEN LAB L400.4300 None Seen /hpf Normal BACTERIA RARE LAB L400.4350 <or=2+ /hpf 0 Normal MUCUS, URINE SEEN Performed By: #### L400.0001 #### [facility] [address] [place], [address] CBC W/DIFF, AUTOMATED Collected: 06/25/2017 Status: F Source: [place] 2:05 AM [facility] REPOSITORY TYPE CODE TESTS RESULT OUT OF RANGE REFERENCE UNITS LAB L100.1000 4.4-11.0 K/mm3 Normal WBC 9.0 LAB L100.1200 4.2-5.4 M/mm3 Low RBC 3.15 LAB L100.1300 12.0-15.0 g/dl Low HGB 10.2 LAB L100.1400 37-47 % Low HCT 30.5 LAB L100.1500 81-99 fL Normal MCV 96.8 LAB L100.1600 27.0-32.0 pg High MCH 32.4 LAB L100.1700 32-36 g/gl Normal MCHC 33.4 LAB L100.1810 11.6-14.6 % Normal RDW CV 13.5 LAB L100.1820 35.1-43.9 fl High RDW SD 45.4 LAB L100.1900 150-450 K/mm3 Normal PLT 164 LAB L100.2000 6.2-12.0 fl Normal MPV 8.9 LAB L100.2100 47-70 % Normal NEUT% 64.0 LAB L100.2200 19-41 % Normal LY% 21.8 LAB L100.2300 0-10 % High MONO% 10.5 LAB L100.2400 0-5 % Normal EO% 3.2 LAB L100.2500 0-1 % Normal BASO% 0.2 LAB L100.2550 0.0-0.9 % Normal IM GRAN % 0.300 Result Comment: IG% - Immature Granulocytes (promyelocytes, myelocytes and metamyelocytes) > 1% indicates that a LEFT SHIFT is Present. LAB L100.2620 2.0-7.7 X10 3/uL Normal Absolute Neut 5.7 LAB L100.2720 0.83-4.51 X10 3/ul Normal Absolute Lymph 1.95 Performed By: #### L100.0100 #### [facility] [address] [place], [address] PROTHROMBIN TIME W/INR Collected: 06/25/2017 Status: F Source: [place] 2:05 AM [facility] REPOSITORY TYPE CODE TESTS RESULT OUT OF RANGE REFERENCE UNITS LAB L300.4150 11.7-14.9 SECONDS High PROTIME 15.0 LAB L300.4200 Normal INR 1.2 Performed By: #### L300.3900, L300.4310 #### [facility] [address] [place], [address] PARTIAL THROMBOPLAST Collected: 06/25/2017 Status: F Source: [place] TIME 2:05 AM [facility] REPOSITORY TYPE CODE TESTS RESULT OUT OF RANGE REFERENCE UNITS LAB L300.4310 24.1-36.2 Seconds Normal PTT 32.7 Performed By: #### L300.3900, L300.4310 #### [facility] [address] [place], [address] BASIC METABOLIC Collected: 06/25/2017 Status: F Source: [place] PROFILE (BMP) 2:05 AM [facility] REPOSITORY TYPE CODE TESTS RESULT OUT OF RANGE REFERENCE UNITS LAB L501.0100 74-106 mg/dL Normal GLU 87 Result Comment: Please note revised GLUCOSE reference range effective 2017. LAB L501.1000 7-18 mg/dL High BUN 25 LAB L501.1100 0.55-1.02 mg/dL High CREAT,SERUM 1.13 Result Comment: The validity of the calculated GFR AND GFRAA in patients over 70 years has not been determined. Clinical correlation is essential. LAB L501.1110 >60 mL/min Low EST GFR 50 Result Comment: Non- GFR Calc LAB L501.1115 >60 mL/min Normal EST GFR - AA 61 Result Comment: GFR Calc LAB L501.1255 ml/min Normal Estimated CRCL 33.46 LAB L501.1300 10-20 RATIO High BUN/CRE 22.1 LAB L501.2200 8.5-10 mg/dL Low .1 CA 8.1 LAB L501.5300 136-14 mmol/L Normal 5 NA 142 LAB L501.5600 3.5-5. mmol/L Normal 1 K 4.6 LAB L501.5900 98-107 mmol/L High CL 108 LAB L501.6100 21.0-3 mmol/L Normal 2.0 CO2 28.0 LAB L501.6200 5-15 Normal GAP 6 Performed By: #### L500.2500 #### [facility] [address] [place], [place], [address] TROPONIN-I Collected: 06/25/2017 Status: F Source: [place] 2:05 AM [facility] REPOSITORY Order Comment: 'TROP' Serial specimen #1, #2, #3, or #4: 4 TYPE CODE TESTS RESULT OUT OF RANGE REFERENCE UNITS LAB L501.4010 <0.06 ng/mL High alert 1.48 TROPONIN-I Result Comment: Critical Result(s) Called at: 02:42:41 06/25/2017 by: GEORGIE Sanders TROPONIN-I EXPECTED VALUES <0.05 NEGATIVE 0.06 - 0.59 AT RISK OF VT > OR = 0.60 SUGGEST VT Performed By: #### L501.4010 #### [facility] [address] [place], [address] BEDSIDE GLUCOSE Collected: 06/24/2017 Status: F Source: [place] 9:34 PM [facility] REPOSITORY TYPE CODE TESTS RESULT OUT OF REFERENCE UNITS RANGE LAB L501.080 70-110 mg/dL High BEDSIDE GLU 173 Result Comment: MANAGEMENT OF PATIENT CARE PER NURSING PROTOCOL Performed By: #### L501.080 #### [facility] Point of Care [address] [place] [address] TROPONIN-I Collected: 06/24/2017 Status: F Source: [place] 4:47 PM [facility] REPOSITORY Order Comment: 'TROP' Serial specimen #1, #2, #3, or #4: 3 TYPE CODE TESTS RESULT OUT OF RANGE REFERENCE UNITS LAB L501.4010 <0.06 ng/mL High alert 1.96 TROPONIN-I Result Comment: Critical Result(s) Called at: 17:22:15 06/24/2017 by: Annie VILLARREAL TROPONIN-I EXPECTED VALUES <0.05 NEGATIVE 0.06 - 0.59 AT RISK OF VT > OR = 0.60 SUGGEST VT Performed By: #### L501.4010 #### [facility] [address] [place], [address] BEDSIDE GLUCOSE Collected: 06/24/2017 Status: F Source: [place] 4:15 PM [facility] REPOSITORY TYPE CODE TESTS RESULT OUT OF REFERENCE UNITS RANGE LAB L501.080 70-110 mg/dL High BEDSIDE GLU 216 Result Comment: MANAGEMENT OF PATIENT CARE PER NURSING PROTOCOL Performed By: #### L501.080 #### [facility] Point of Care [address] [place] [address] HISTORY AND PHYSICAL Observed: 06/24/2017 Status: F Source: [place] EXAM 2:14 PM [facility] REPOSITORY [facility] Medical Records Department [address] [place] [address] [place] [address] History and Physical 06/24/17 1310 MR#: [id number] Acct: [id number] Name: DEDRA LARA Rep #: [id number] : [id number] 72 From: Ernst Doran MD PCP: Guillermina Stanton MD Status: ADM KEVEN Y Location: [place] [address] ADDENDUM by Ernst Doran on 06/24/17 at 1414 Code Visit Addendum: Assessment and plan: #1 chest pain/non-ST elevation VT: Second troponin came back elevated at 1.22 patient remained without chest pain.. I spoke with Dr. aRmos who will see the patient consultation. She is already on aspirin, statins, Plavix. Plan to resume metoprolol. 06/24/17 1414 <Electronically signed by Ernst Doran MD> Date Ernst Doran MD cc: Ernst Doran; Guillermina Stanton MD * Signed Problem List (1) Asthma Status: Chronic (2) History of tobacco use Status: Chronic (3) Hypertension Status: Chronic (4) Hyperlipidemia Status: Chronic (5) History of TIA (transient ischemic attack) Status: Chronic (6) Morbid obesity with BMI of 40.0-44.9, adult Status: Chronic (7) Type II diabetes mellitus Status: Chronic History of Present Illness Date of Admission: 06/24/17 Chief Complaint: Chest pain. The patient is a 72 year old F with past medical history as mentioned above presented to the emergency room because of chest pain. Her symptoms started last night when she was sitting in her chair with substernal chest pain, described as pressure- like pain, 7-8 out of 10 in severity, not radiating, associated with mild shortness of breath, nausea and diaphoresis, lasted for around 6 hours without aggravating or relieving factors. The patient persists until she came to the emergency room and at this time, she thinks her pain is getting better. Around 12 days ago, she went to her PCPs office for cough and sputum production and she was treated for pneumonia as well as probable asthma exacerbation with Levaquin and prednisone. She completed course of 7 days of Levaquin as well as course of prednisone. She mentioned that after the antibiotics and prednisone, she feels better but she continued to have persistent dry cough. She denied fever or chills. In the emergency room, she was afebrile, heart rate was stable, pressure was fluctuating but slightly elevated and pulse ox was 96% on 2 L. Her routine blood work is remarkable for mild leukocytosis, creatinine of 1.15, otherwise normal. Her troponin is negative. EKG revealed normal sinus rhythm without evidence of acute ischemic changes. D-dimer was elevated for which CTA chest done and revealed no evidence of PE or dissection, left lower lobe nodules and small right pleural effusion. She is being admitted for chest pain for evaluation as well as left lower lung nodules.. Past Medical History Past Medical History (Chronic Problems): Chronic Problems Asthma (Chronic) History of tobacco use (Chronic) Hypertension (Chronic) Hyperlipidemia (Chronic) History of TIA (transient ischemic attack) (Chronic) Morbid obesity with BMI of 40.0-44.9, adult (Chronic) Type II diabetes mellitus (Chronic) Allergies hydrocodone bitartrate [From Vicodin] Allergy (Verified 06/24/17 08:13) Shortness of breath Penicillins Allergy (Verified 06/24/17 08:13) Hives oxycodone HCl [From Percocet] Adverse Reaction (Verified 06/24/17 08:13) Rash Home Medications: Ambulatory Orders Medication Instructions Recorded Surgical History: cholecystectomy, tonsillectomy, - Psychiatric History: No pertinent psych hx DIRECTOR OF MATH History: No pertinent DIRECTOR OF MATH history Lives: Alone Smoking Status: Former smoker Alcohol: None Drugs: None - *Family History Maternal History Items: Diabetes, - - age 85 Mother w/ MS. Paternal History Items: Diabetes, Heart Disease - Father w/ [place], age 62., Hypertension Review of Systems Constitutional: Denies: Anorexia, Chills, Fever, Weakness, Fatigue Eyes: Denies: Blurred vision, Double vision, Drainage, Redness HEENT: Denies: Difficulty Hearing, Ear Pain, Eye Pain, Nasal Congestion, Sore Throat Cardiovascular: Reports: Chest Pain, Chest Pressure, Edema. Denies: Heaviness, Light Headedness, Palpitations, Syncope Respiratory: Reports: Cough, Shortness of Breath, Shortness of breath upon exertion. Denies: Sputum production, Wheezing Gastrointestinal: Denies: Abdominal Pain, Constipation, Diarrhea, Nausea, Vomiting Genitourinary: Denies: Dysuria, Frequency, Hematuria Musculoskeletal: Denies: Arm Pain, Back Pain, Foot Pain Skin: Denies: Dryness, Rash Neurological: Denies: Balance problems, Change in Speech, Slurred speech, Confusion, Headaches, Incoordination, Numbness Psychiatric: Denies: Anxiety, Depression Endocrine: Denies: Change in Body Habitus, Polydipsia VTE Information - Inpt Only VTE Present on Admission: No VTE Mechan Device Prophylaxis: None VTE Pharm Prophylaxis ordered?: Yes - Physical Exam General: Alert, Oriented x3, Cooperative, No apparent distress HEENT: Atraumatic, PERRLA, EOMI Oral: Moist Mucosa, No Gingival or Mucosal Lesions/ Ulcerations Neck: Supple, No JVD, Negative Carotid Bruits, Trachea Midline, Thyroid Normal Size and Texture Lungs: Clear to auscultation, No rhonchi, No wheeze, No rales, Diminished Cardiovascular: Regular rate, Regular Rhythm, Normal S1, Normal S2, No murmurs, Bradycardic Abdomen: Bowel Sounds Present, Soft, Non Tender, Non-Distended, No Hepato-splenomegaly, Obese Extremities: No clubbing, No cyanosis, Edema - + Edema. Skin: No rashes, No breakdown Lymphatic: No Cervical, Supraclavicular, or Inguinal Adenopathy Neurological: Cranial nerves II-XII grossly intact, Motor Exam 5/5 strength throughout Psych/Mental Status: Normal Affect, Appropriate, Alert and oriented to time, place, person, mood and affect Vital Signs Temp Pulse Resp BP Pulse Ox 98.3 F 80 14 168/75 H 98 06/24/17 08:14 06/24/17 12:16 06/24/17 12:16 06/24/17 12:16 06/24/17 12:16 Oxygen Delivery Method Room Air Laboratory Tests Clinical Impression(s) from Imaging Studies Chest X-Ray 06/24/17 08:27 IMPRESSION: Degenerative changes, as described above. No demonstrated acute cardiopulmonary process. No interval change Electronically Signed: Colt Brown MD at 8:56 EDT , Service support , Chest CTA 06/24/17 09:15 IMPRESSION: Small right pleural effusion with right basilar atelectasis. Bibasilar scarring with areas of bronchiectasis. There are 2 small noncalcified nodules in the left lower lobe as described. Electronically Signed: Edilson Vaughn MD at 10:19 EDT Tel [phone], Service support , Assessment/Plan This is a 72 years old female patient presented to the emergency room because of chest pain/pressure and she is being admitted for evaluation and also found to have 2 left lower lung nodules. #1 chest pain/pressure: EKG revealed no acute ischemic changes. First troponin is negative. CTA chest showed no evidence of PE or dissection. She had a history of non-ST elevation VT back in August, which is attributed to lesion at the terminal portion of the obtuse marginal branch, no interventions done at that time and medical treatment was recommended. Chest x-ray showed no acute findings. Plan: Admit to PCU, alarm security or surveillance monitor, serial cardiac enzymes, repeat EKG tomorrow morning, nuclear stress test tomorrow morning, IV fluids, IV Zofran, Tylenol as needed, continue aspirin, statins, Plavix, lisinopril. #2 left lower lung nodules: This is an incidental finding on CTA chest. Patient is a ex-smoker. She quit smoking 14 years ago. Those nodules are very small. Plan: Pulmonology consult. #3 recent history of pneumonia: Patient was treated with Levaquin and prednisone as outpatient. She did mention that she feels better after the antibiotics and steroids but she continued to have persistent cough. Chest x-ray without acute infiltrate. CTA chest with small right pleural effusion which is likely parapneumonic. At this time, no indication for more antibiotics. #4 elevated d-dimer: Unclear etiology, CTA chest negative for PE. No clinical evidence of DVT. #5 CAD: Without history of prior cardiac interventions. Plan as above, continue aspirin, statins, Plavix and lisinopril. Metoprolol will be held for stress test. #5 type 2 diabetes mellitus: ADA diet, Accu-Cheks, insulin sliding scale, continue glipizide and glargine insulin. #6 hypertension: Initially, blood pressure was slightly elevated, now stabilized. Continue lisinopril, hold metoprolol, IV hydralazine as needed. #7 hyperlipidemia: Continue statins. #8 asthma: Clinically stable, albuterol as needed. She is supposed to see Dr. Erickson as outpatient by the end of this month. He will be consulted as above. #9 history of TIA: Continue aspirin, statin and Plavix. #10 DVT prophylaxis: Subcu heparin. This note was generated with [employer] dictation software. It may contain incorrect words, spelling, and punctuation that were not noted in checking the note before signing. Code Visit Inpatient E AND M: 21083 Init Hosp L3 06/24/17 1345 <Electronically signed by Ernst Doran MD> Date Ernst Doran MD Cosigner Signature: Date (if applicable) CC: Ernst Doran; Guillermina Stanton MD Signed TROPONIN-I Collected: 06/24/2017 Status: F Source: [place] 1:05 PM [facility] REPOSITORY Order Comment: 'TROP' Serial specimen #1, #2, #3, or #4: 2 TYPE CODE TESTS RESULT OUT OF RANGE REFERENCE UNITS LAB L501.4010 <0.06 ng/mL High alert 1.22 TROPONIN-I Result Comment: Critical Result(s) Called at: 13:58:38 06/24/2017 by: RADHA Champion TROPONIN-I EXPECTED VALUES <0.05 NEGATIVE 0.06 - 0.59 AT RISK OF VT > OR = 0.60 SUGGEST VT Performed By: #### L501.4010 #### [facility] [address] [place], [address] EMERGENCY DEPARTMENT Observed: 06/24/2017 Status: F Source: [place] SUMMARY 11:39 AM [facility] REPOSITORY [facility] Medical Records Department [address] [place] [address] Emergency Department Summary 06/24/17 0828 MR#: [id number] Acct: [id number] Name: DEDRA LARA Rep #: [id number] : 1945 72 From: Steffanie Simms MD PCP: Guillermina Stanton MD Status: REG ER - ER Visit Summary Date of Service: 06/24/17 Chief Complaint: Chest pain History of Present Illness: The patient is a 72 F presenting with chest pain. Patient states this started around 2 AM. Pain is in the midsternal area. She has had diaphoresis, nausea, shortness of breath. She has no radiation of her pain. She was recently treated with Levaquin for pneumonia. She finished antibiotics a week ago. She continues to have cough. She has no fever. She has history of hypertension, diabetes, hypercholesteremia, previous smoker. Denies PE/DVT risk factors. She did not take her morning medications today. Physical Examination: Vitals are stable. Patient is afebrile. Alert no acute distress. HEENT exam is unremarkable. Neck is supple. Lungs are clear and equal bilaterally. Heart is regular tachycardic Abdomen is soft nontender nondistended. Extremities are unremarkable. Skin is warm and dry. No focal neurologic deficit. Remainder of exam is unremarkable. Emergency Department Course and Treatment: EKG sinus tachycardia rate 136. Patient is given aspirin on arrival. She is given IV fluids, Lopressor. Patient EKG is sinus rate is 74 with no acute ischemic changes. CBC shows a white count of 12.8, hemoglobin 11.9. BUN 20, creatinine 1.15. Troponin 0.05. D-dimer is 1.97. Due to elevated d-dimer, CTA chest was obtained which shows no evidence of PE, small right pleural effusion. Due to multiple risk factors,will discuss with the hospitalist for observation. Disposition: Observation Impression: Chest pain This note was generated with [employer] dictation software. It may contain incorrect words, spelling, and punctuation that were not noted in review of the chart prior to signing ED Disposition - Plan for ED Patient: Chief Complaint: Chest Pain Referrals: Guillermina Stanton MD [Primary Care Provider] - What to do if you have Problems For any increased pain, shortness of breath, bleeding, nausea or vomiting, chest pain, or any unexpected problems, contact your Primary Care Provider. Call [facility] ([phone]) or report to the closest Emergency Room. Call 911 if necessary. 06/24/17 7472 <Electronically signed by Steffanie Simms MD> Date Steffanie Smims MD Cosigner Signature (If Indicated): Date CC: Guillermina Stanton MD CTA CHEST W/WO Observed: 06/24/2017 Status: F Source: [place] CONTRAST 9:16 AM [facility] REPOSITORY [facility] Imaging Services [address] [place] [address] CTA Chest W/WO Contrast MR#: [id number] Acct: [id number] Name: DEDRA LARA Rep #: [id number] : 1945 F 72 From: Edilson Vaughn MD PCP: Guillermina Stanton MD Status: REG ER Study: CTA Chest W/WO Contrast Date of Exam: 06/24/17 Exam# [id number] Ordering Dr: Steffanie Simms MD STUDY: CTA CHEST REASON FOR EXAM: Female, 72 years old. Sternal chest pain and chest heaviness. Former smoker. RADIATION DOSAGE (If Supplied By Facility): CTDIvol = ( 16.71 ) mGy, DLP = ( 719.95 ) mGycm TECHNIQUE: The examination was performed with the intravenous administration of 100 ml of Isovue 370 contrast material. Post-processing of the angiographic images was performed, with multiplanar reformation and 3D reconstruction. Individualized dose optimization techniques were used for this CT. COMPARISON: None. FINDINGS: Normal enhancement of the main pulmonary artery and right and left pulmonary arteries. Normal enhancement of the bilateral peripheral pulmonary arteries. There is no demonstrated pulmonary embolism. There is atherosclerotic calcification of the aortic arch with tortuosity. There is no demonstrated aortic dissection. There are calcifications of the coronary arteries. Normal mediastinum. Normal hilar regions. Normal visualized trachea and bronchi. The lungs are well expanded. Small right pleural effusion with underlying right basilar atelectasis. Mild increased markings at the left lung base. There is evidence of bibasilar scarring with areas of bronchiectasis. There is a 4.9 mm noncalcified nodule in the peripheral lateral aspect of the left lower lobe as seen on axial image #120. There is also evidence of a 5.6 mm noncalcified nodule along the anterior aspect of the left lower lobe adjacent to the major fissure as seen on axial image #128. Normal chest wall structures. There are degenerative changes of thoracic spine. Normal visualized upper abdomen. CT/CTA Chest W/WO Contrast IMPRESSION: Small right pleural effusion with right basilar atelectasis. Bibasilar scarring with areas of bronchiectasis. There are 2 small noncalcified nodules in the left lower lobe as described. Electronically Signed: Edilson Vaughn MD at 10:19 EDT Tel [phone], Service support , CC: Steffanie Simms MD; Guillermina Stanton MD Shift Boss: Signed CBC W/DIFF, AUTOMATED Collected: 06/24/2017 Status: F Source: [place] 8:30 AM [facility] REPOSITORY TYPE CODE TESTS RESULT OUT OF RANGE REFERENCE UNITS LAB L100.1000 4.4-11.0 K/mm3 High WBC 12.8 LAB L100.1200 4.2-5.4 M/mm3 Low RBC 3.64 LAB L100.1300 12.0-15.0 g/dl Low HGB 11.9 LAB L100.1400 37-47 % Low HCT 35.1 LAB L100.1500 81-99 fL Normal MCV 96.4 LAB L100.1600 27.0-32.0 pg High MCH 32.7 LAB L100.1700 32-36 g/gl Normal MCHC 33.9 LAB L100.1810 11.6-14.6 % Normal RDW CV 13.5 LAB L100.1820 35.1-43.9 fl High RDW SD 45.3 LAB L100.1900 150-450 K/mm3 Normal PLT 194 LAB L100.2000 6.2-12.0 fl Normal MPV 9.0 LAB L100.2100 47-70 % Normal NEUT% 64.2 LAB L100.2200 19-41 % Normal LY% 23.1 LAB L100.2300 0-10 % Normal MONO% 9.4 LAB L100.2400 0-5 % Normal EO% 2.6 LAB L100.2500 0-1 % Normal BASO% 0.2 LAB L100.2550 0.0-0.9 % Normal IM GRAN % 0.500 Result Comment: IG% - Immature Granulocytes (promyelocytes, myelocytes and metamyelocytes) > 1% indicates that a LEFT SHIFT is Present. LAB L100.2620 2.0-7.7 X10 3/uL High Absolute Neut 8.3 LAB L100.2720 0.83-4.51 X10 3/ul Normal Absolute Lymph 2.96 Performed By: #### L100.0100 #### [facility] [address] [place], [place], [address] D-DIMER QUANTITATIVE Collected: 06/24/2017 Status: F Source: [place] (DVT/PE) 8:30 AM [facility] REPOSITORY TYPE CODE TESTS RESULT OUT OF RANGE REFERENCE UNITS LAB L300.8000 0.27-0.49 FEU/ug/m High alert D-DIMER 1.97 QUANT Result Comment: CRITICAL VALUE VERIFIED. CALLED TO [facility] 06/24/17 0901 Deidra Naranjo. RESULTS READ BACK BY [facility] . D-Dimer ELEVATED (>0.49): Additional studies and clinical assessments are indicated to conclude diagnosis of: Deep Vein Thrombosis (DVT) or Pulmonary Embolism (PE) Performed By: #### L300.8000 #### [facility] [address] [place], [place], [address] BASIC METABOLIC Collected: 06/24/2017 Status: F Source: [place] PROFILE (BMP) 8:30 AM [facility] REPOSITORY Order Comment: 'TROP' Serial specimen #1, #2, #3, or #4: 1 TYPE CODE TESTS RESULT OUT OF RANGE REFERENCE UNITS LAB L501.0100 74-106 mg/dL High GLU 230 Result Comment: Glucose result greater than or equal to 200 mg/dL suggests DIABETES MELLITUS per A.D.A. criteria. Please note revised GLUCOSE reference range effective 2017. LAB L501.1000 7-18 mg/dL High BUN 28 LAB L501.1100 0.55-1.02 mg/dL High CREAT,SERUM 1.15 Result Comment: The validity of the calculated GFR AND GFRAA in patients over 70 years has not been determined. Clinical correlation is essential. LAB L501.1110 >60 mL/min Low EST GFR 49 Result Comment: Non- GFR Calc LAB L501.1115 >60 mL/min Normal EST GFR - AA 60 Result Comment: GFR Calc LAB L501.1255 ml/min Normal Estimated CRCL 32.88 LAB L501.1300 10-20 RATIO High BUN/CRE 24.3 LAB L501.2200 8.5-10 mg/dL Low .1 CA 8.4 LAB L501.5300 136-14 mmol/L Normal 5 NA 139 LAB L501.5600 3.5-5. mmol/L Normal 1 K 4.9 LAB L501.5900 98-107 mmol/L Normal CL 104 LAB L501.6100 21.0-3 mmol/L Normal 2.0 CO2 28.0 LAB L501.6200 5-15 Normal GAP 7 Performed By: #### L500.2500, L501.4010 #### [facility] [address] [place], [address] TROPONIN-I Collected: 06/24/2017 Status: F Source: [place] 8:30 AM [facility] REPOSITORY Order Comment: 'TROP' Serial specimen #1, #2, #3, or #4: 1 TYPE CODE TESTS RESULT OUT OF RANGE REFERENCE UNITS LAB L501.4010 <0.06 ng/mL Normal 0.05 TROPONIN-I Result Comment: TROPONIN-I EXPECTED VALUES <0.05 NEGATIVE 0.06 - 0.59 AT RISK OF VT > OR = 0.60 SUGGEST VT Performed By: #### L500.2500, L501.4010 #### [facility] [address] [place], [place], [address] CHEST 1 VIEW Observed: 06/24/2017 Status: F Source: [place] (PORTABLE) 8:28 AM [facility] REPOSITORY [facility] Imaging Services [address] [facility] [place] [address] Chest 1 View (Portable) MR#: [id number] Acct: [id number] Name: DEDRA LARA Rep #: [id number] : 1945 F 72 From: Saud Brown MD PCP: Guillermina Stanton MD Status: REG ER Study: Chest 1 View (Portable) Date of Exam: 06/24/17 Exam# [id number] Ordering Dr: Steffanie Simms MD STUDY: X-RAY CHEST REASON FOR EXAM: Female, 72 years old. Chest pain and cough TECHNIQUE: Single AP portable view of the chest. COMPARISON: 06/12/17 FINDINGS: EKG leads overlie the chest There are interstitial fibrotic changes of the lungs. Stable blunting of the right costophrenic angle, likely chronic. Normal size heart. Normal mediastinum and alfredo. Normal visualized pulmonary arteries. There is atherosclerotic calcification of the aortic arch with tortuosity. There are diffuse degenerative changes of the visualized thoracic spine. There is degenerative osteoarthritis of the bilateral shoulders. There is no demonstrated abnormality of the visualized soft tissue structures of the upper abdomen. RAD/Chest 1 View (Portable) IMPRESSION: Degenerative changes, as described above. No demonstrated acute cardiopulmonary process. No interval change Electronically Signed: Colt Brown MD at 8:56 EDT , Service support , CC: Steffanie Simms MD; Guillermina Stanton MD Shift Boss: Signed CHEST PA AND LATERAL Observed: 06/12/2017 Status: F Source: [place] 3:51 PM [facility] REPOSITORY [facility] Imaging Services [address] [place] [address] Chest PA and Lateral MR#: [id number] Acct: [id number] Name: DEDRA LARA Rep #: [id number] : 1945 F 72 From: Demarco Cadet MD PCP: Guillermina Stanton MD Status: REG CLI Study: Chest PA and Lateral Date of Exam: 06/12/17 Exam# [id number] Ordering Dr: Roxi Hernández STUDY: X-RAY CHEST REASON FOR EXAM: Female, 72 years old. Chest pain TECHNIQUE: Frontal and lateral views of the chest COMPARISON: 09/02/2014 FINDINGS: The lungs are clear. There are no pleural effusions. There is no pneumothorax. The heart is normal in size. The visualized osseous structures are within normal limits. RAD/Chest PA and Lateral IMPRESSION: No acute thoracic pathology. Electronically Signed: Demarco Helio, at 17:02 EDT Tel , Service support , CC: Roxi Hernández; Guillermina Stanton MD Shift Boss: Signed ALLERGIES ALLERGIES DATE TYPE / NAME / CODE REACTION SEVERITY SOURCE CODE 01/28/2018 Drug hydrocodone Shortness of Unknown [place] Allergy/41 bitartrate/[id number] breath [facility] [id number]([facility](RXNORM) [facility]) Repository 01/28/2018 Drug oxycodone Rash Unknown [place] Allergy/41 HCl/[id number](RXNOR [facility] 0837130([facility]) Repository 01/28/2018 Drug Penicillins/R4306945 Hives Unknown [place] Allergy/41 76(RXNORM) Community 5313919([facility]) Repository 01/28/2018 Drug indomethacin/C966778 Diarrhea MO [place] Allergy/41 373(RXNORM) Community 0593498([facility]) Repository 01/28/2018 Drug ketoprofen/X68682695 Diarrhea MO [place] Allergy/41 4(RXNORM) [facility] 8931769([facility]) Repository 01/28/2018 Drug cephalexin/E63825012 Diarrhea MO [place] Allergy/41 6(RXNORM) [facility] 9035472([facility]) Repository 01/28/2018 Drug doxycycline/V5984830 Rash SV [place] Allergy/41 48(RXNORM) Community 0357956([facility]) Repository 01/28/2018 Drug sulfamethoxazole/F00 SORE TONGUE MO [place] Allergy/41 3468103(RXNORM) Community 8885731([facility]) Repository 01/28/2018 Drug nitrofurantoin/F0060 asthma attack SV [place] Allergy/41 42074(RXNORM) Community 2312656([facility]) Repository 01/28/2018 Drug trimethoprim/G135560 SORE TONGUE MO [place] Allergy/41 873(RXNORM) Community 8258086([facility]) Repository 01/28/2018 Drug azithromycin/U438610 Diarrhea MO [place] Allergy/41 635(RXNORM) Community 5836962([facility]) Repository 01/28/2018 Drug metformin/D491851278 Diarrhea MO [place] Allergy/41 (RXNORM) Community 6624605([facility]) Repository 01/28/2018 Drug tiotropium/W43932127 difficulty SV [place] Allergy/41 2(RXNORM) breathing Community 2894344([facility]) Repository 11/06/2017 DRUG/86483 OXYCODONE-ACETAMINOP RASH [facility] 1003([facility] Clinic Other D CT) [place] Repository 11/05/2017 DRUG CEPHALEXIN DIARRHEA [facility] INGREDI/41 Clinic Other 9292204([facility] OMED CT) Repository 11/05/2017 DRUG HYDROCODONE SHORTNESS OF [facility] INGREDI/41 BITARTRATE Clinic Other 9150171([facility] OMED CT) Repository 11/05/2017 DRUG INDOMETHACIN DIARRHEA [facility] INGREDI/41 Clinic Other 8646858([facility] OMED CT) Repository 11/05/2017 DRUG KETOPROFEN DIARRHEA [facility] INGREDI/41 Clinic Other 8875361([facility] OMED CT) Repository 11/05/2017 DRUG METFORMIN DIARRHEA [facility] INGREDI/41 Clinic Other 5796679([facility] OMED CT) Repository 11/05/2017 DRUG NITROFURANTOIN SHORTNESS OF [facility] INGREDI/41 Clinic Other 5029039([facility] OMED CT) Repository 11/05/2017 Drug PENICILLINS HIVES [facility] Class/4195 Clinic Other 51108(SNOM [place] ED CT) Repository 11/05/2017 Drug SULFA (SULFONAMIDE OTHER: SEE C Jesus Class/4195 ANTIBIOTICS) Clinic Other 23650(SNOM [place] ED CT) Repository 11/05/2017 DRUG TIOTROPIUM SHORTNESS OF [facility] 3346852( [place] OMED CT) Repository [facility] 2493550( [place] OMED CT) Repository NG/8696281 CEPHALEXIN [facility] 06(SNOM[facility]) Repository NG/5341236 DOXYCYCLINE [facility] 06(SNOMED [facility]) Repository NG/8679433 HYDROCODONE [facility] 06(SNOMED BITARTRATE [facility]) Repository NG/4879045 INDOMETHACIN [facility] 06(SNOMED [facility]) Repository NG/8234949 KETOPROFEN [facility] 06(SNOMED [facility]) Repository NG/1710609 METFORMIN [facility] 06(SNOMED [facility]) Repository NG/7627716 NITROFURANTOIN [facility] 06(SNOMED [facility]) Repository NG/2785261 PENICILLINS [facility] 06(SNOMED [facility]) Repository NG/0029538 OXYCODONE-ACETAMINOP [facility] 06(SNOMED HEN [facility]) Repository NG/7352983 SULFA (SULFONAMIDE [facility] 06(SNOMED ANTIBIOTICS) Health System CT) Repository NG/6914083 TIOTROPIUM [facility] 06(SNOMED [facility] CT) Repository ENCOUNTERS ENCOUNTERS ADMIT/DISCHARGE ACCOUNT NUMBER ADMITTING ENCOUNTER LOCATION SOURCE CLASS 02/10/2018 [id number] Ambulatory [facility] ding:MTLAB Repository 02/07/2018/02/08/20 [id number] Ambulatory [address] Main [place] Repository 02/07/2018/02/08/20 [id number] Ambulatory [address] Main [place] Repository 02/07/2018/02/08/20 [id number] Ambulatory [address] [place] Repository 02/07/2018/02/08/20 [id number] Ambulatory [address] [place] Repository 02/07/2018/02/08/20 [id number] Ambulatory [address] [place] Repository 02/07/2018/02/11/20 [id number] Ambulatory [address] [place] Repository 02/07/2018/02/08/20 [id number] Ambulatory [address] [place] Repository 02/07/2018/02/08/20 [id number] Ambulatory [address] [place] Repository 02/07/2018/02/08/20 [id number] Ambulatory [address] [place] Repository 02/07/2018/02/08/20 [id number] Ambulatory [address] Repository 02/04/2018 [id number] Ambulatory [facility] ding:LAB.FUT Repository URE 01/28/2018/01/29/20 [id number] Ambulatory BMSBuilding: [address] Repository 01/07/2018/01/15/20 [id number] Ambulatory [address] Repository 12/31/2017/01/01/20 [id number] KONG V, Ambulatory [address] Repository 12/31/2017/01/01/20 [id number] JENNIFER Sky, Inpatient [facility] [address] [place] [address] MEDICAL Repository CENTERBuildi ng:CCLERoom: POOLBed: 02 12/30/2017 [id number] Ambulatory [facility] ding:LAB.FUT Repository URE 12/25/2017/01/18/20 [id number] Ambulatory [address] [place] Repository 12/25/2017/12/26/19 [id number] Ambulatory [address] Repository 12/25/2017/12/26/19 [id number] Ambulatory [address] [place] Repository 12/25/2017/12/26/19 [id number] Ambulatory [address] [place] Repository 12/25/2017/12/26/19 [id number] Ambulatory [address] Repository 12/25/2017/12/26/19 [id number] Ambulatory [address] Repository 11/06/2017/11/07/19 [id number] Ambulatory [address] Other [place] Repository 11/06/2017/11/07/19 [id number] Ambulatory [address] MEDICAL Repository CENTERBuildi ng:AGVASACC 11/05/2017 [id number] Ambulatory [facility] ding:MTLAB Repository 11/01/2017/11/02/19 [id number] Ambulatory BBuilding:[place] Bev [address] [facility] Repository 10/30/2017/10/31/19 [id number] Ambulatory BMSBuilding: [place] 18 BMS.[facility] Repository 10/30/2017 [id number] Ambulatory [facility] ding:[facility]S Repository 10/17/2017/10/18/19 [id number] Ambulatory BMSBuilding: [place] 18 BMS.[facility] Repository 10/16/2017 [id number] Ambulatory [facility] ding:MTLAB Repository 10/15/2017 [id number] Ambulatory BMSBuilding: [place] BMS.[facility] Repository 10/15/2017 [id number] Ambulatory [facility] ding:MTRAD Repository 10/09/2017/10/10/19 [id number] Ambulatory BMSBuilding: [place] 18 BMS.[facility] Repository 10/03/2017 [id number] Ambulatory [facility] ding:RAD.FUT Repository URE 10/01/2017 [id number] Ambulatory B[facility]: [facility] Repository 09/30/2017 [id number] Ambulatory [facility] ding:PSN Repository 09/28/2017 [id number] Ambulatory BMSBuilding: [facility] Repository 09/27/2017 [id number] Ambulatory [facility] ding:PSN Repository 09/17/2017/09/19/19 [id number] Ambulatory BMSBuilding: [place] 18 BMS.CF.[facility] Repository 09/17/2017 [id number] Juan, Ambulatory BMSBuilding: [place] Anthony BMS.CF.[facility] Repository 09/17/2017 [id number] Juan, Ambulatory BMSBuilding: [place] Anthony BMS.[facility] Repository 09/17/2017 [id number] Juan, Ambulatory BMSBuilding: [place] Anthony [facility] Repository 09/17/2017/09/19/19 [id number] Juan, Inpatient [place] 18 Anthony Encounter [facility] ding:JZ5Wdjj Repository : BQ966Ovg: 1 09/16/2017 [id number] Juan, Ambulatory BMSBuilding: [place] Anthony BMS.CF.[facility] Repository 09/16/2017 [id number] Juan, Ambulatory BMSBuilding: [place] Anthony BMS.[facility] Repository 09/16/2017 [id number] Juan, Ambulatory BMSBuilding: [place] Anthony BMS.[facility] Repository 09/16/2017 [id number] Ambulatory BMSBuilding: [place] [facility] Repository 07/15/2017/07/16/19 [id number] Ambulatory BMSBuilding: Kaleva 18 BMS.[facility] Repository 07/12/2017 [id number] Ambulatory BMSBuilding: Abena BMS.[facility] Repository 07/03/2017/07/04/19 [id number] Ambulatory BMSBuilding: Kaleva 18 BMS.[facility] Repository 06/27/2017 [id number] Ambulatory BMS [facility] Repository 06/24/2017/06/26/19 [id number] [place], Inpatient Kaleva Abena 18 Ghasem Encounter [facility] ding:PCURoom Repository : XKH793Ynt: 1 06/24/2017/06/26/19 [id number] Ambulatory BMSBuilding: Kaleva 18 [facility] Repository 06/24/2017 [id number] [place], Ambulatory BMSBuilding: Abena Ghasem BMS.[facility] Repository 06/24/2017 [id number] [place], Ambulatory BMSBuilding: Abena Ghasem BMS.CF.[facility] Repository 06/24/2017 [id number] [place], Ambulatory BMSBuilding: Abena Ghasem [facility] Repository 06/24/2017 [id number] [place], Ambulatory BMSBuilding: Abena Ghasem BMS.[facility] Repository 06/24/2017 [id number] Inpatient Abena Kaleva Encounter [facility] ding:ED Repository 06/12/2017 [id number] Ambulatory Abena Kaleva [facility] ding:MTRAD Repository PAYERS PAYERS ENCOUNTER GUARANTOR PAYER SUBSCRIBER SOURCE 02/10/2018 DEDRA L Primary DEDRA L Abena [id number] HIGH Insurance:MEDICARE ULLERYDOB: [place] PART A BPolicy Number: [id number] Hospital 12[address]Aak: ([phone] [id number] Repository 040 () Date:2018-02-06 02/10/2018 Secondary DEDRA L Abena Insurance:AETNA SR ULLERYDOB: Community SUPPLEMENT [facility] [id number] Hospital Number: Repository [id number] Date:7807-46-02RFACR SENIOR SUPPLEMENT [address] [place] [address]LV: 02/10/2018 Tertiary NOT GIVENUNK [place] Insurance:SELF PAY [facility] Number: Effective Repository Date:2018-02-06 02/04/2018 DEDRA L Primary DEDRA L [place] [id number] HIGH Insurance:MEDICARE ULLERYDOB: [place] PART A BPolicy Number: [id number] Hospital [address]609Idj: ([phone]) [id number] Repository () Date:2018-01-31 02/04/2018 Secondary DEDRA L Abena Insurance:AETNA SR ULLERYDOB: Community [facility] [id number] Hospital Number: Repository [id number] Date:1800-62-22GVGTW SENIOR SUPPLEMENT [address] [place] [address]RV: 02/04/2018 Tertiary NOT GIVENUNK [place] Insurance:SELF PAY [facility] Number: Effective Repository Date:2018-01-31 01/28/2018 DEDRA L Primary DEDRA L [place] [id number] HIGH Insurance:MEDICARE ULLERYDOB: [place] PART A BPolicy Number: [id number] Hospital 97807Glp: ([phone] [id number] Repository [phone] () Date:2017-10-09 01/28/2018 Secondary DEDRA L [place] Insurance:AETNA SR ULLERYDOB: Community SUPPLEMENT INSPolicy [id number] Hospital Number: Repository [id number] Date:1232-24-38TEECI SENIOR SUPPLEMENT [address] [address]PKRPUE, [place] [address]RO: 01/28/2018 Tertiary NOT GIVENUNK Abena Insurance:SELF PAY [facility] Number: Effective Repository Date:2018-01-21 12/31/2017 DEDRA L Primary DEDRA L [facility] ULLERYDOB: Insurance:MEDICARE A ULLERYDOB: Health System AND BPolicy Number: [id number] [facility] [id number] [place] [address]Uwg: Date: () 12/31/2017 Secondary DEDRA L [facility] Insurance:AETNA ULLERYDOB: Health System MEDICARE [id number] Repository SUPPLEMENTPolicy Number: [id number] Date: 12/30/2017 DEDRA L Primary DEDRA L Abena [id number] HIGH Insurance:MEDICARE ULLERYDOB: [place] PART A BPolicy Number: [id number] [facility] [address]Bmu: (220) [id number] Repository [phone] () Date:2017-12-19 12/30/2017 Secondary DEDRA L Abena Insurance:AETNA SR ULLERYDOB: Community SUPPLEMENT INSPolicy [id number] Hospital Number: Repository [id number] Date:0873-02-56OGFAN SENIOR SUPPLEMENT [address] [address]AEGPBDXGV, [place] [address]WU: 12/30/2017 Tertiary NOT GIVENUNK Abena Insurance:SELF PAY [facility] Number: Effective Repository Date:2017-12-19 11/06/2017 DEDRA L Primary DEDRA L [facility] ULLERYDOB: Insurance:MEDICARE A ULLERYDOB: Health System AND BPolicy Number: [id number] [facility] [id number] [address]Ldi: Date: (HP) 11/06/2017 Secondary DEDRA L [facility] Insurance:AETNA ULLERYDOB: Health System MEDICARE [id number] Repository SUPPLEMENTPolicy Number: [id number] Date: 11/05/2017 DEDRA L Primary DDERA L Abena [id number] HIGH Insurance:MEDICARE ULLERYDOB[place] PART A BPolicy Number: [id number] Hospital 19176Pzz: ([phone]) [id number] Repository 0406 (HP) Date:2017-11-05 11/05/2017 Secondary DEDRA L Abena Insurance:AETNA ULLERYDOB: Community SUPPLEMENT INSPolicy [id number] Hospital Number: Repository [id number] Date:5678-04-21GNEII SENIOR SUPPLEMENT [address] [place] [address]TW: 11/05/2017 Tertiary NOT GIVENUNK Abena Insurance:SELF PAY [facility] Number: Effective Repository Date:2017-11-05 11/01/2017 DEDRA L [facility] ULLERYDOB: Insurance:MEDICARE ULLERYDOB: [facility] PART BPolicy Number: [id number] Repository HIGH [facility], [id number] [place], [place] [address]Bsz: Date:2017-10-23 [place] [address]Pty: [id number] (HP) Name:[facility] ()Tel: ([phone]) Caxecborxxsahu RWMFO [phone] () [address] [address]Exqjorkrm, [place] [address]AU: 11/01/2017 Secondary DEDRA [facility] Health Insurance:AETNA SENIOR ULLERYDOB: [facility] SUPPLEMENTAL ASUPolicy [id number] Repository Number: [facility], [id number] [place] [address]Sab: Date:2017-10-23 - 5989-25-49Awfl ()Tel: (331) Name:CPO Li 000-0000 () [address] [place] [address]FH: 10/30/2017 DEDRA L Primary DEDRA L [place] [id number] HIGH Insurance:MEDICARE ULLERYDOB: [place] PART A BPolicy Number: [id number] Hospital [address]Kqz: ([phone] [id number] Repository 040 () Date:2017-10-17 10/30/2017 Secondary DEDRA L [place] Insurance:AETNA SR ULLERYDOB: Community SUPPLEMENT INSPolicy [id number] Hospital Number: Repository [id number] Date:1170-36-27RZOOU SENIOR SUPPLEMENT [address] [place] [address]ZX: 10/30/2017 Tertiary NOT GIVENUNK Abena Insurance:SELF PAY [facility] Number: Effective Repository Date:2017-10-30 10/30/2017 DEDRA L Primary DEDRA L Abena [id number] HIGH Insurance:MEDICARE ULLERYDOB: [place] PART A BPolicy Number: [id number] Hospital [address]Pmi: [phone] [id number] Repository 0406 () Date:2017-10-17 10/30/2017 Secondary DEDRA L [place] Insurance:AETNA SR ULLERYDOB: Community SUPPLEMENT INSPolicy [id number] Hospital Number: Repository [id number] Date:6806-41-30PKCKU SENIOR SUPPLEMENT [address] [place] [address]OX: 10/30/2017 Tertiary NOT GIVENUNK Abena Insurance:SELF PAY [facility] Number: Effective Repository Date:2017-10-17 10/17/2017 DEDRA L Primary DEDRA L Abena [id number] HIGH Insurance:MEDICARE ULLERYDOB: [place] PART A BPolicy Number: [id number] Hospital [address]Pyj: 330 [id number] Repository [phone] () Date:2017-09-23 10/17/2017 Secondary DEDRA L Abena Insurance:AETNA SR ULLERYDOB: Community SUPPLEMENT INSPolicy [id number] Hospital Number: Repository [id number] Date:8440-14-90PTPBU SENIOR SUPPLEMENT [address] [address], [place] [address]WX: 10/17/2017 Tertiary NOT GIVENUNK Abena Insurance:SELF PAY [facility] Number: Effective Repository Date:2017-10-17 10/16/2017 DEDRA L Primary DEDRA L [place] [id number] HIGH Insurance:MEDICARE ULLERYDOB: [place] PART A BPolicy Number: [id number] Hospital [address]Mbj: 330 [id number] Repository 040 () Date:2017-10-16 10/16/2017 Secondary DEDRA L [place] Insurance:AETNA SR ULLERYDOB: Community SUPPLEMENT INSPolicy [id number] Hospital Number: Repository [id number] Date:5938-27-03PEGIG SENIOR SUPPLEMENT [address] [place] [address]JF: 10/16/2017 Tertiary NOT GIVENUNK [place] Insurance:SELF PAY [facility] Number: Effective Repository Date:2017-10-16 10/15/2017 DEDRA L Primary DEDRA L Abena [id number] HIGH Insurance:MEDICARE ULLERYDOB: [place] PART A BPolicy Number: [id number] Hospital 15117Pyd: 330 [id number] Repository 0406 () Date:2017-10-15 10/15/2017 Secondary DEDRA L [place] Insurance:AETNA SR ULLERYDOB: Community SUPPLEMENT INSPolicy [id number] Hospital Number: Repository [id number] Date:7747-46-58LZEFA SENIOR SUPPLEMENT [address] [address]LFLYFMHRT, [place] [address]KX: 10/15/2017 Tertiary NOT GIVENUNK Abena Insurance:SELF PAY [facility] Number: Effective Repository Date:2017-10-15 10/15/2017 DEDRA L Primary DEDRA L Abena [id number] HIGH Insurance:MEDICARE [place]DOB[place] BPolicy Number: [id number] Hospital [address]Ili: ([phone]) [id number] Repository [phone] () Date:2017-10-15 10/15/2017 Secondary DEDRA L Abena Insurance:AETNA SR ULLERYDOB: Community SUPPLEMENT INSPolicy [id number] Hospital Number: Repository [id number] Date:6849-44-92KESBI SENIOR SUPPLEMENT [address] [place] [address]FO: 10/15/2017 Tertiary NOT GIVENUNK [place] Insurance:SELF PAY [facility] Number: Effective Repository Date:2017-10-15 10/09/2017 DEDRA L Primary DEDRA L Abena [id number] HIGH Insurance:MEDICARE ULLERYDOB: Community [facility] PART A BPolicy Number: [id number] Hospital [address]Xis: ([phone]) [id number] Repository [phone] () Date:2017-07-03 10/09/2017 Secondary DEDRA L [place] Insurance:AETNA SR ULLERYDOB: Community SUPPLEMENT INSPolicy [id number] Hospital Number: Repository [id number] Date:7069-75-55JHWHW SENIOR SUPPLEMENT [address] [place] [address]BE: 10/09/2017 Tertiary NOT GIVENUNK Abena Insurance:SELF PAY [facility] Number: Effective Repository Date:2017-10-02 10/03/2017 DEDRA L Primary DEDRA L [place] [id number] HIGH Insurance:MEDICARE ULLERYDOB: Community [facility] PART A BPolicy Number: [id number] Hospital 295[address]Krc: [phone] [id number] Repository -[phone] () Date:2017-09-20 10/03/2017 Secondary DEDRA L Abena Insurance:AETNA SR ULLERYDOB: Community SUPPLEMENT INSPolicy [id number] Hospital Number: Repository [id number] Date:2393-62-99HOAZD SENIOR SUPPLEMENT [address]RI[address] [place] [address]DU: 10/03/2017 Tertiary NOT GIVENUNK Abena Insurance:SELF PAY [facility] Number: Effective Repository Date:2017-09-20 10/01/2017 DEDRA L Primary DEDRA L Abena [id number] HIGH Insurance:MEDICARE ULLERYDOB: [place] BPolicy Number: [id number] Hospital 488[address]Iei: ([phone]) [id number] Repository [phone] () Date:2017-07-03 10/01/2017 Secondary DEDRA L Abena Insurance:AETNA SR ULLERYDOB: Community SUPPLEMENT INSPolic [id number] Hospital Number: Repository [id number] Date:0852-97-14XDJSS SENIOR SUPPLEMENT [address] [address]WQNHSEOUS, [place] [address]NU: 10/01/2017 Tertiary NOT GIVENUNK [place] Insurance:SELF PAY [facility] Number: Effective Repository Date:2017-10-01 09/30/2017 DEDRA L Primary DEDRA L [place] [id number] HIGH Insurance:MEDICARE ULLERYDOB: [place] BPolicy Number: [id number] Hospital 96722Tyd: [phone] [id number] Repository [phone] () Date:2017-07-03 09/30/2017 Secondary DEDRA L [place] Insurance:AETNA SR ULLERYDOB: Community SUPPLEMENT INSPolic [id number] Hospital Number: Repository [id number] Date:0040-99-60RXUUU SENIOR SUPPLEMENT [address] [address]QPUKYLCSC, [place] [address]EO: 09/30/2017 Tertiary NOT GIVENUNK Abena Insurance:SELF PAY [facility] Number: Effective Repository Date:2017-07-03 09/28/2017 DEDRA L Primary DEDRA L [place] [id number] HIGH Insurance:MEDICARE ULLERYDOB: [place] BPolicy Number: [id number] Hospital 12780Grv: [phone]) [id number] Repository [phone] () Date:2017-07-03 09/28/2017 Secondary DEDRA L Abena Insurance:AETNA SR ULLERYDOB: Community SUPPLEMENT INSPolic [id number] Hospital Number: Repository [id number] Date:3269-48-97EZVOL SENIOR SUPPLEMENT [address] [place] [address]JP: 09/28/2017 Tertiary NOT GIVENUNK [place] Insurance:SELF PAY [facility] Number: Effective Repository Date:2017-09-28 09/27/2017 DEDRA L Primary DEDRA L Abena [id number] HIGH Insurance:MEDICARE ULLERYDOB: [place] BPolicy Number: [id number] Hospital 25839Fhy: ([phone]) [id number] Repository [phone] () Date:2017-07-03 09/27/2017 Secondary DEDRA L Abena Insurance:AETNA SR ULLERYDOB: Community SUPPLEMENT INSPolicy [id number] Hospital Number: Repository [id number] Date:3217-09-76EZIAA SENIOR SUPPLEMENT [address]OZ[address] [place] [address]JX: 09/27/2017 Tertiary NOT GIVENUNK [place] Insurance:SELF PAY [facility] Number: Effective Repository Date:2017-07-03 09/17/2017 DEDRA L Primary DEDRA L [place] [id number] HIGH Insurance:MEDICARE ULLERYDOB: [place] BPolicy Number: [id number] Hospital 28811Diq: [phone]) [id number] Repository 1366 () Date:2017-09-16 09/17/2017 Secondary DEDRA L [place] Insurance:AETNA SR ULLERYDOB: Community SUPPLEMENT INSPolicy [id number] Hospital Number: Repository [id number] Date:8018-38-51ARAZC SENIOR SUPPLEMENT [address]NFSUNFQMC[address] [place] [address]NZ: 09/17/2017 Tertiary NOT GIVENUNK [place] Insurance:SELF PAY [facility] Number: Effective Repository Date:2017-09-17 09/17/2017 DEDRA L Primary DDERA L Abena [id number] HIGH Insurance:MEDICARE ULLERYDOB: [place] BPolicy Number: [id number] Hospital 50639Thd: ([phone]) [id number] Repository [phone] () Date:2017-09-16 09/17/2017 Secondary DEDRA L Abena Insurance:AETNA SR ULLERYDOB: Community [facility] [id number] Hospital Number: Repository [id number] Date:8081-49-53ANAIZ SENIOR SUPPLEMENT [address] [place] [address]QY: 09/17/2017 Tertiary NOT GIVENUNK Abena Insurance:SELF PAY [facility] Number: Effective Repository Date:2017-09-17 09/17/2017 DEDRA L Primary DEDRA L [place] [id number] HIGH Insurance:MEDICARE ULLERYDOB: [place] PART [place] BPolicy Number: [id number] Hospital 028[address]Byr: ([phone]) [id number] Repository [phone] () Date:2017-09-16 09/17/2017 Secondary DEDRA L [place] Insurance:AETNA SR ULLERYDOB: Community SUPPLEMENT INSPolic [id number] Hospital Number: Repository [id number] Date:7626-55-16YUPFP SENIOR SUPPLEMENT [address]KVZDUEGH[address] [place] [address]ZL: 09/17/2017 Tertiary NOT GIVENUNK Abena Insurance:SELF PAY [facility] Number: Effective Repository Date:2017-09-17 09/17/2017 DEDRA L Primary DEDRA L Abena [id number] HIGH Insurance:MEDICARE ULLERYDOB[place] BPolicy Number: [id number] Hospital 45228Unx: ([id number]) [id number] Repository [phone] () Date:2017-09-16 09/17/2017 Secondary DEDRA L Abena Insurance:AETNA SR ULLERYDOB: Community SUPPLEMENT INSPolicy [id number] Hospital Number: Repository [id number] Date:7954-21-01XSUQM SENIOR SUPPLEMENT [address]JH[address] [place] [address]MJ: 09/17/2017 Tertiary NOT GIVENUNK [place] Insurance:SELF PAY [facility] Number: Effective Repository Date:2017-09-17 09/17/2017 DEDRA L Primary DEDRA L [place] [id number] HIGH Insurance:MEDICARE ULLERYDOB: [place] PART A BPolicy Number: [id number] Hospital 56670Hes: [phone] [id number] Repository [phone] () Date:2017-09-16 09/17/2017 Secondary DEDRA L [place] Insurance:AETNA SR ULLERYDOB: Community SUPPLEMENT INSPolicy [id number] Hospital Number: Repository [id number] Date:4236-61-61DASIU SENIOR SUPPLEMENT [address] [address], [place] [address]WB: 09/17/2017 Tertiary NOT GIVENUNK Abena Insurance:SELF PAY [facility] Number: Effective Repository Date:2017-09-16 09/16/2017 DEDRA L Primary DEDRA L [place] [id number] HIGH Insurance:MEDICARE ULLERYDOB: [place] BPolicy Number: [id number] Hospital 07331Hvm: (394) [id number] Repository [phone] () Date:2017-09-16 09/16/2017 Secondary DEDRA L [place] Insurance:AETNA SR ULLERYDOB: Community SUPPLEMENT INSPolicy [id number] Hospital Number: Repository [id number] Date:2081-87-24EIAXK SENIOR SUPPLEMENT [address] [address]HTIWQIRPL, [place] [address]KB: 09/16/2017 Tertiary NOT GIVENUNK Abena Insurance:SELF PAY [facility] Number: Effective Repository Date:2017-09-16 09/16/2017 DEDRA L Primary DEDRA L Abena [id number] HIGH Insurance:MEDICARE ULLERYDOB: [place] PART A BPolicy Number: [id number] Hospital 82208Aqo: ([phone]) [id number] Repository [phone] () Date:2017-09-16 09/16/2017 Secondary DEDRA L [place] Insurance:AETNA SR ULLERYDOB: Community SUPPLEMENT INSPolicy [id number] Hospital Number: Repository [id number] Date:8823-58-33FWKOC SENIOR SUPPLEMENT [address] [address]WJEDDFSCE, [place] [address]LR: 09/16/2017 Tertiary NOT GIVENUNK [place] Insurance:SELF PAY [facility] Number: Effective Repository Date:2017-09-16 09/16/2017 DEDRA L Primary DEDRA L Abena [id number] HIGH Insurance:MEDICARE ULLERYDOB: [facility] [place] PART A BPolicy Number: [id number] Hospital 66934Teq: [phone] [id number] Repository [phone] () Date:2017-09-16 09/16/2017 Secondary DEDRA L Abena Insurance:AETNA SR ULLERYDOB: Community SUPPLEMENT INSPolic [id number] Hospital Number: Repository [id number] Date:6516-42-80ANRCP SENIOR SUPPLEMENT [address] [address]UEJGKHQIB, [place] [address]GZ: 09/16/2017 Tertiary NOT GIVENUNK [place] Insurance:SELF PAY [facility] Number: Effective Repository Date:2017-09-16 09/16/2017 DEDRA L Primary DEDRA L Abena [id number] HIGH Insurance:MEDICARE ULLERYDOB: [place] PART A BPolicy Number: [id number] Hospital 99239Low: ([phone]) [id number] Repository [phone] () Date:2017-09-16 09/16/2017 Secondary DEDRA L [place] Insurance:AETNA SR ULLERYDOB: Community SUPPLEMENT INSPolicy [id number] Hospital Number: Repository [id number] Date:4434-78-73BOEGB SENIOR SUPPLEMENT [address] [address], [place] [address]EZ: 09/16/2017 Tertiary NOT GIVENUNK [place] Insurance:SELF PAY [facility] Number: Effective Repository Date:2017-09-16 07/15/2017 DEDRA L Primary DEDRA L [place] [id number] HIGH Insurance:MEDICARE ULLERYDOB: [facility] PART A BPolicy Number: [id number] [address]Rff: [id number] Repository Date:2017-02-19 () 07/15/2017 Secondary DEDRA L [place] Insurance:AETNA SR ULLERYDOB: Community SUPPLEMENT INSPolic [id number] Hospital Number: Repository [id number] Date:5453-91-92VIRXI SENIOR SUPPLEMENT [address] [address]XBO, [place] [address]VC: 07/15/2017 Tertiary NOT GIVENUNK Abena Insurance:SELF PAY [facility] Number: Effective Repository Date:2017-02-19 07/12/2017 DEDRA L Primary DEDRA L Abena [id number] HIGH Insurance:MEDICARE ULLERYDOB: Community [email or web address] PART A BPolicy Number: [id number] Hospital 057[address]Ckx: 330 [id number] Repository 1661 () Date:2017-07-12 07/12/2017 Secondary DEDRA L Abena Insurance:AETNA SR ULLERYDOB: Community SUPPLEMENT INSPolic [id number] Hospital Number: Repository [id number] Date:9717-69-23DOGVS SENIOR SUPPLEMENT [address] [address]PVVMKQMTE, [place] [address]YO: 07/12/2017 Tertiary NOT GIVENUNK [place] Insurance:SELF PAY [facility] Number: Effective Repository Date:2017-07-12 07/03/2017 DEDRA L Primary DEDRA L [place] [id number] HIGH Insurance:MEDICARE ULLERYDOB: Community [place] PART A BPolicy Number: [id number] Hospital 32708Nwk: ([phone]) [id number] Repository 6 () Date:2017-06-12 07/03/2017 Secondary DEDRA L [place] Insurance:AETNA SR ULLERYDOB: Community SUPPLEMENT INSPolicy [id number] Hospital Number: Repository [id number] Date:3261-17-12SMJNB SENIOR SUPPLEMENT [address] [place] [address]WY: 07/03/2017 Tertiary NOT GIVENUNK [place] Insurance:SELF PAY [facility] Number: Effective Repository Date:2017-06-26 06/27/2017 DEDRA L Primary DEDRA L [place] [id number] HIGH Insurance:MEDICARE ULLERYDOB: [place] PART A BPolicy Number: [id number] Hospital 90227Eqj: [phone] [id number] Repository () Date:2017-06-27 06/27/2017 Secondary DEDRA L [place] Insurance:AETNA SR ULLERYDOB: Community SUPPLEMENT INSPolic [id number] Hospital Number: Repository [id number] Date:5402-60-67FHULN SENIOR SUPPLEMENT [address] [place] [address]HE: 06/27/2017 Tertiary NOT GIVENUNK Abena Insurance:SELF PAY [facility]: Effective Repository Date:2017-06-27 06/24/2017 DEDRA L Primary DEDRA L Abena [id number] HIGH Insurance:MEDICARE ULLERYDOB: [place] PART A BPolicy Number: [id number] [address]Auv: [phone] [id number] Repository () Date:2017-06-24 06/24/2017 Secondary DEDRA L Abena Insurance:AETNA SR ULLERYDOB: Community SUPPLEMENT INSPolicy [id number] Hospital Number: Repository [id number] Date:[id number] SENIOR SUPPLEMENT [address]SP[address] [address], [place] [address]AH: 06/24/2017 Tertiary NOT GIVENUNK [place] Insurance:SELF PAY [facility] Number: Effective Repository Date:2017-06-24 06/24/2017 DEDRA L Primary DEDRA L Abena [id number] HIGH Insurance:MEDICARE ULLERYDOB: Community [facility] PART A BPolicy Number: [id number] [address]Gls: [id number] Repository Date:2017-06-24 () 06/24/2017 Secondary DEDRA L Abena Insurance:AETNA SR ULLERYDOB: Community SUPPLEMENT INSPolicy [id number] Hospital Number: Repository [id number] Date:[id number] SENIOR SUPPLEMENT [address]SPO [address] [address], [place] [address]MH: 06/24/2017 Tertiary NOT GIVENUNK Abena Insurance:SELF PAY [facility] Number: Effective Repository Date:2017-06-24 06/24/2017 DEDRA L Primary DEDRA L [place] [id number] HIGH Insurance:MEDICARE ULLERYDOB: [facility] [place] PART A BPolicy Number: [id number] Hospital [address]Iqw: [id number] Repository [phone] () Date:2017-06-24 06/24/2017 Secondary DEDRA L Abena Insurance:TNA SR ULLERYDOB: Community SUPPLEMENT INSPolicy [id number] Hospital Number: Repository [id number] Date:[id number] SENIOR SUPPLEMENT [address] [address], [place] [address]OO: 06/24/2017 Tertiary NOT GIVENUNK Abena Insurance:SELF PAY [facility] Number: Effective Repository Date:2017-06-24 06/24/2017 DEDRA L Primary DEDRA L Abena [id number] HIGH Insurance:MEDICARE ULLERYDOB: [place] PART A BPolicy Number: [id number] [address]Fds: [phone] [id number] Repository [phone] () Date:2017-06-24 06/24/2017 Secondary DEDRA L [place] Insurance:AETNA SR ULLERYDOB: Community SUPPLEMENT INSPolic [id number] Hospital Number: Repository [id number] Date:[id number] SENIOR SUPPLEMENT [id number] [place] [id number]: 06/24/2017 Tertiary NOT GIVENUNK [place] Insurance:SELF PAY [facility] Number: Effective Repository Date:2017-06-24 06/24/2017 DEDRA L Primary DEDRA L Abena [id number] HIGH Insurance:MEDICARE ULLERYDOB: [place] PART A BPolicy Number: [id number] [address]Imz: [phone] [id number] Repository [phone] () Date:2017-06-24 06/24/2017 Secondary DEDRA L [place] Insurance:AETNA SR ULLERYDOB: Community SUPPLEMENT INSPolic [id number] Hospital Number: Repository [id number] Date:[id number] SENIOR SUPPLEMENT INSPO [address] [place] [id number]: 06/24/2017 Tertiary NOT GIVENUNK Abena Insurance:SELF PAY [facility] Number: Effective Repository Date:2017-06-24 06/24/2017 DEDRA L Primary DEDRA L K[place]va [id number] HIGH Insurance:MEDICARE ULLERYDOB: [place] PART A BPolicy Number: [id number] [facility] [address]Teo: [phone] [id number] Repository [phone] () Date:2017-06-24 06/24/2017 Secondary DEDRA L [place] Insurance:AETNA SR ULLERYDOB: Community SUPPLEMENT INSPolicy [id number] [facility] Number: Repository [id number] Date:[id number] SENIOR SUPPLEMENT [address]SPO [address] [address], [place] [address]BL: 06/24/2017 Tertiary NOT GIVENUNK Abena Insurance[facility] Effective Repository Date:2017-06-24 06/24/2017 DEDRA L Primary DEDRA L Kaleva [id number] HIGH Insurance:MEDICARE ULLERYDOB: [place] PART A BPolicy Number: [id number] [facility] [address]Kag: [phone] [id number] Repository [phone] (HP) Date:2017-06-24 06/24/2017 Secondary DEDRA L Abena Insurance:AETNA SR ULLERYDOB: Community SUPPLEMENT INSPolicy [id number] Hospital Number: Repository [id number] Date:[id number] SENIOR SUPPLEMENT INSPO [address] [address], [place] [address]JX: 06/24/2017 Tertiary NOT GIVENUNK Abena Insurance:SELF PAY [facility] Number: Effective Repository Date:2017-06-24 06/12/2017 DEDRA L Primary DEDRA L Abena [id number] HIGH Insurance:MEDICARE ULLERYDOB: [place] PART A BPolicy Number: [id number] [facility] [address]Shy: [phone] [id number] Repository [phone] () Date:2017-06-12 06/12/2017 Secondary DEDRA L Abena Insurance:AETNA SR ULLERYDOB: Community SUPPLEMENT INSPolicy [id number] [facility] Number: Repository [id number] Date:[id number] SENIOR SUPPLEMENT INSPO [address] [address], [place] [address]FA: 06/12/2017 Tertiary NOT GIVENUNK Abena Insurance:SELF PAY [facility] Number: Effective Repository Date:2017-06-12
== END ==
PROVIDERS: Family Provider Family Medicine; PCP Family Medicine; Referring Provider Internal Medicine Nephrology; Visit Provider Internal Medicine Nephrology
DX: N18.3 Chronic kidney disease, stage 3 (moderate) (principal)
CPT/HCPCS: 36415; 80069; 83970

== ENCOUNTER → 2018-02-10 11:04 | Outpatient (CLI) | payer MEDICARE, OTHER, SELFPAY ==
[2018-01-28 09:58] VITALS: BMI 40.4
[2018-02-10 12:58] LABS: Albumin, Serum 3.2 g/dL (3.2-5.0); BUN 41 mg/dL (7-18); BUN/Creat Ratio 26.1 RATIO (10-20); Calcium,Total 9.4 mg/dL (8.5-10.1); Chloride 104 mmol/L (98-107); Creatinine, Serum 1.57 mg/dL (0.55-1.02); EST Glomerular Filtration Rate 34 mL/min (>60); Est Glom Filt Rate - Afr Amer 41 mL/min (>60); Glucose 77 mg/dL (74-106); Phosphorus 3.7 mg/dL (2.5-4.9); Potassium 4.4 mmol/L (3.5-5.1); Sodium Level 143 mmol/L (136-145)
--- OUTSIDE RECORDS SUMMARY | 2018-04-05 16:53 | XMS RPT_ITS ---
:1945 Author Organization OHIP Support Name Relationship Address Phone DAVID BRIGIDA Unavailable Unavailable + [place] [address] R Unavailable Unavailable Unavailable MONIQUE LARA Unavailable [address] + [place] [address] GOODLIN, BRIGIDA Unavailable . + [place] [address] ONEEIGHTY Unavailable [address] + [place] [address] MONIQUE LARA Unavailable [address] + [place] [address] RAYLIN, BRIGIDA Unavailable . + [place] [address] ONEEIGHTY Unavailable [address] + [place] [address] MONIQUE LARA Unavailable [address] + [place] [address] GOODLIN, BRIGIDA Unavailable Unavailable + [place] [address] ONEEIGHTY Unavailable [address] + [address] [place] [address] MONIQUE LARA Unavailable [address] + [place] [address] GOODLIN, BRIGIDA Unavailable 1 + [place] [address] ONEEIGHTY Unavailable [address] + [address] [place] [address] MONIQUE LARA Unavailable [address] + [place] [address] RAYLIN, BRIGIDA Unavailable 1 + [place] [address] ONEEIGHTY Unavailable [address] + [address] [place] [address] ULLERY, MONIQUE Unavailable [address] + [place] [address] GOODLIN, BRIGIDA Unavailable Unavailable + [place] ONEEIGHTY Unavailable [address] + [address] [place] [address] MARCO MONIQUE Unavailable [address] + [place] [address] GOODLIN, BRIGIDA Unavailable . + [facility], [place] . ONEEIGHTY Unavailable [address] + [address] [place] [address] MARCO, MONIQUE Unavailable [address] + [place] [address] GOODLIN, BRIGIDA Unavailable . + [facility], [place] . ONEEIGHTY Unavailable [address] + [address] [place] [address] MARCO MONIQUE Unavailable [address] + [place] [address] GOODLIN, BRIGIDA Unavailable . + [facility], [place] . ONEEIGHTY Unavailable [address] + [address] [place] [address] MARCO, MONIQUE Unavailable [address] + [place] [address] GOODLIN, BRIGIDA Unavailable . + [facility], [place] . ONEEIGHTY Unavailable [address] + [address] [place] [address] MARCO MONIQUE Unavailable [address] + [place] [address] GOODLIN, BRIGIDA Unavailable . + [facility], [place] . ONEEIGHTY Unavailable [address] + [address] [place] [address] MARCO, MONIQUE Unavailable [address] + [place] [address] GOODLIN, BRIGIDA Unavailable . + [place], [place] . ONEEIGHTY Unavailable [address] + [address] [place] [address] MARCO MONIQUE Unavailable [address] + [place] [address] GOODLIN, BRIGIDA Unavailable . + [place] . ONEEIGHTY Unavailable [address] + [address] [place] [address] MARCO MONIQUE Unavailable [address] + [place] [address] GOODLIN, BRIGIDA Unavailable Unavailable + [place] ONEEIGHTY Unavailable [address] + [address] [place] [address] MARCO MONIQUE Unavailable [address] + [place] [address] RAYLIN, BRIGIDA Unavailable . + [place] . ONEEIGHTY Unavailable [address] + [address] [place] [address] MARCO MONIQUE Unavailable [address] + [place] [address] GOODLIN, BRIGIDA Unavailable Unavailable + [place] ONEEIGHTY Unavailable [address] + [address] [place] [address] MARCO MONIQUE Unavailable [address] + [place] [address] Raylin, Brigida Unavailable Unavailable + [place] [address] ONEEIGHTY Unavailable [address] + [address] [place] [address] MARCO MONIQUE Unavailable [address] + [place] [address] Goodlin, Brigida Unavailable Unavailable + [place] [address] ONEEIGHTY Unavailable [address] + [address] [place] [address] AMRCO MONIQUE Unavailable [address] + [place] [address] Raylin, Brigida Unavailable Unavailable + [place] [address] ONEEIGHTY Unavailable [address] + [address] [place] [address] MARCO MONIQUE Unavailable [address] + [place] [address] Goodlin, Brigida Unavailable Unavailable + [place] [address] ONEEIGHTY Unavailable [address] + [address] [place] [address] MARCO MONIQUE Unavailable [address] + [place] [address] GOODLIN, BRIGIDA Unavailable . + [facility], [place] . ONEEIGHTY Unavailable [address] + [address] [place] [address] MARCO MONIQUE Unavailable [address] + [place] [address] GOODLIN, BRIGIDA Unavailable . + [facility], [place] . ONEEIGHTY Unavailable [address] + [address] [place] [address] MARCO MONIQUE Unavailable [address] + [place] [address] Goodlin, Brigida Unavailable . + [place] [address] ONEEIGHTY Unavailable [address] + [address] [address] MARCO MONIQUE Unavailable [address] + [place] [address] Goodlin, Brigida Unavailable . + [place] [address] ONEEIGHTY Unavailable [address] + [address] [place] [address] MARCO MONIQUE Unavailable [address] + [place] [address] GOODLIN, BRIGIDA Unavailable . + [facility], [place] . ONEEIGHTY Unavailable [address] + [address] [place] [address] MARCO MONIQUE Unavailable [address] + [place] [address] David Brigida Unavailable . + [place] [address] ONEEIGHTY Unavailable [address] + [address] [address] MONIQUE LARA Unavailable [address] + [place] [address] David Brigida Unavailable . + [place] [address] ONEEIGHTY Unavailable [address] + [address] [place] [address] MONIQUE LARA Unavailable [address] + [place] [address] David Brigida Unavailable . + [place] [address] ONEEIGHTY Unavailable [address] + [address] [place] [address] MONIQUE LARA Unavailable [address] + [place] [address] ONEEIGHTY Unavailable [address] + [address] [address] MONIQUE LARA Unavailable [address] + [place] [address] ONEEIGHTY Unavailable [address] + [address] [place] [address] MONIQUE LARA Unavailable [address] + [place] [address] ONEEIGHTY Unavailable [address] + [address] [address] MONIQUE LARA Unavailable [address] + [place] [address] ONEEIGHTY Unavailable [address] + [address] [place] [address] MONIQUE LARA Unavailable [address] + [place] [address] ONEEIGHTY Unavailable [address] + [address] [address] MONIQUE LARA Unavailable [address] + [place] [address] David Brigida Unavailable . + [place] [address] ONEEIGHTY Unavailable [address] + [address] [place] [address] MONIQUE LARA Unavailable [address] + [place] [address] ONEEIGHTY Unavailable [address] + [address] [address] MONIQUE LARA Unavailable [address] + [place] [address] ONEEIGHTY Unavailable [address] + [address] [place] [address] MONIQUE LARA Unavailable [address] + [place] [address] ONEEIGHTY Unavailable [address] + [address] [address] MONIQUE LARA Unavailable [address] + [place] [address] Care Team Providers Name Role Phone Roxi Hernández Attending Unavailable Roxi Hernández Referring Unavailable [facility] Primary Care Unavailable [facility] Primary Care Unavailable Ashelfah, Ghasem Admitting Unavailable Ashelfah, Ghasem Attending Unavailable Richard, Trae Consulting Unavailable Dre, Angus Consulting Unavailable PROVIDER, ED PHYSICIAN Attending Unavailable [facility] Guillermina Primary Care Unavailable Ashelfah, Ghasem Admitting Unavailable Ashelfah, Ghasem Attending Unavailable [facility] Guillerimna Primary Care Unavailable Ashelfah, Ghasem Consulting Unavailable Ashelfah, Ghasem Admitting Unavailable Marti Chisholm PARTY DEMONSTRATOR-C Attending Unavailable [facility] Guillermina Primary Care Unavailable Richard, Trae Consulting Unavailable Dre, Angus Consulting Unavailable Ashelfah, Ghasem Consulting Unavailable Ashelfah, Ghasem Admitting Unavailable Dre Angus Attending Unavailable [facility] Guillermina Primary Care Unavailable Richard, Trae Consulting Unavailable Dre, Angus Consulting Unavailable Ashelfah, Ghasem Consulting Unavailable Ashelfah, Ghasem Admitting Unavailable Ashelfah, Ghasem Attending Unavailable [facility] Guillermina Primary Care Unavailable Richard, Osnabrock Consulting Unavailable Dre, Angus Consulting Unavailable Ashelfah, Ghasem Consulting Unavailable Neeru Stallings Attending Unavailable Angus Erickson Attending Unavailable [facility] Referring Unavailable [facility] Primary Care Unavailable Ani Woods Attending Unavailable Flex Hearn Attending Unavailable Stanton, Guillermina Referring Unavailable Stanton, Guillermina Primary Care Unavailable Trae Ramos Attending Unavailable Stanton, Guillermina Primary Care Unavailable [facility], Anthony Admitting Unavailable Dre, Angus Consulting Unavailable Jopperi, Corbin Attending Unavailable [facility], Anthony Admitting Unavailable Stanton, Guillermina Primary Care Unavailable Dre, Angus Consulting Unavailable Juan, Anthony Attending Unavailable Juan, Anthony Consulting Unavailable [facility], Anthony Admitting Unavailable Jopperi, Corbin Attending Unavailable Stanton, Guillermina Primary Care Unavailable Dre, Angus Consulting Unavailable Jopperi, Corbin Consulting Unavailable [facility], Anthony Admitting Unavailable Dre, Angus Attending Unavailable Stanton, Guillermina Primary Care Unavailable Dre, Angus Consulting Unavailable Jopperi, Corbin Consulting Unavailable [facility], Anthony Admitting Unavailable Jopperi, Corbin Attending Unavailable Stanton, Guillermina Primary Care Unavailable Dre, Angus Consulting Unavailable Jopperi, Corbin Consulting Unavailable [facility], Anthony Admitting Unavailable Marti Chisholm PARTY DEMONSTRATOR-C Attending Unavailable Stanton, Guillermina Primary Care Unavailable Dre, Angus Consulting Unavailable Jopperi, Corbin Consulting Unavailable [facility], Anthony Admitting Unavailable Dre, Angus Attending Unavailable Stanton, Guillermina Primary Care Unavailable Dre, Angus Consulting Unavailable Jopperi, Corbin Consulting Unavailable Jopperi, Corbin Attending Unavailable Jopperi, Corbin Referring Unavailable Stanton, Guillermina Primary Care Unavailable Stanton, Guillermina Consulting Unavailable Dre, Angus Attending Unavailable Dre, Angus Referring Unavailable Stanton, Guillermina Primary Care Unavailable Dre, Angus Attending Unavailable Dre, Angus Referring Unavailable Stanton, Guillermina Primary Care Unavailable Marvin Rothman Attending Unavailable DreAngus Attending Unavailable Stanton, Guillermina Referring Unavailable Dre, Angus Attending Unavailable Dre, Angus Referring Unavailable Stanton, Guillermina Primary Care Unavailable Namrata Tee Attending Unavailable Brendon Toscano Attending Unavailable Brendon Toscano Referring Unavailable Stanton, Guillermina Primary Care Unavailable Richard Sprague Attending Unavailable Ranulfo Balderas D.O. Attending Unavailable DreAngus doherty Referring Unavailable DreAngus doherty Attending Unavailable Dre, Angus Referring Unavailable Flex Hearn Attending Unavailable Stanton, Guillermina Referring Unavailable Stanton, Guillermina Primary Care Unavailable Flex Hearn Attending Unavailable Flex Hearn Referring Unavailable Stanton, Guillermina Primary Care Unavailable Flex Hearn Attending Unavailable Stanton, Guillermina Referring Unavailable Stanton, Guillermina Primary Care Unavailable Stanton, Guillermina Attending Unavailable Stanton, Guillermina Referring Unavailable Stanton, Guillermina Primary Care Unavailable Ani Herbert Consulting Unavailable Brendon Toscano Attending Unavailable Romy, Guillermina Primary Care Unavailable Brendon Toscano Referring Unavailable Angus Erickson Attending Unavailable Guillermina Stanton Referring Unavailable Mima Mata Attending Unavailable Romy, Guillermina Primary Care Unavailable Mima Mata Referring Unavailable Adolfo, Mima Attending Unavailable Romy, Guillermina Primary Care Unavailable Adolfo, Mima Referring Unavailable TAMAR WILKERSON, DR. COOPER Attending Unavailable ROMY WILKERSON, DR. GUILLERMINA Skinner Primary Care Unavailable GUNJAN, MARK Nassar Attending Unavailable FLEX HEARN Referring Unavailable KANAA'N V, JORGE FERREIRA Admitting Unavailable KANAA'N V, JORGE FERREIRA Attending Unavailable SOLTESZ, EDWARD G Referring [...] MARK Nassar Referring Unavailable LAHORRA, MARK Nassar Attending Unavailable FLEX HEARN Referring Unavailable Guillermina Stanton Primary Care Unavailable KANAA N, JORGE Admitting Unavailable KANAA N, JORGE Attending Unavailable Stanton, Guillermina H Primary Care Unavailable PROBLEMS PROBLEMS DATE TYPE CONDITION / CODE ATTENDING STATUS SOURCE 02/07/2018 Active Encounter for other NA Active [place] preprocedural [facility] Main examination / [place] Z01.818(ICD-10) Repository 02/07/2018 Active Nontoxic single NA Active [place] thyroid nodule / Clinic Main E04.1(ICD-10) [place] Repository 02/07/2018 Active Obstructive sleep NA Active [place] apnea (adult) Clinic Main (pediatric) / [place] G47.33(ICD-10) Repository 02/07/2018 Active Nonrheumatic mitral SOLTESJennifer, Active [place] (valve) stenosis / [facility] Main I34.2(ICD-10) [place] Repository 02/07/2018 Active Encounter for NA Active [facility] preprocedural Clinic Main cardiovascular [place] examination / Repository Z01.810(ICD-10) 02/07/2018 Active Type 2 diabetes NA Active [place] mellitus without Clinic Main complications / [place] E11.9(ICD-10) Repository 01/08/2018 Active Nontoxic NA Active [facility] multinodular goiter Clinic Main / E04.2(ICD-10) [place] Repository 02/04/2018 Unknown J47.9 - DreAngus doherty Active [place] Bronchiectasis, Community uncomplicated / Hospital J47.9(ICD-10) Repository 02/04/2018 Unknown G47.33 - Obstructive DreAngus doherty Active [place] sleep apnea (adult) Community (pediatric) / Hospital G47.33(ICD-10) Repository 02/04/2018 Unknown E66.01 - Morbid DreAngus doherty Active [place] (severe) obesity due Community to excess calories / Hospital E66.01(ICD-10) Repository 02/04/2018 Unknown Z68.41 - Body mass DreAngus doherty Active [place] index (BMI) Community 40.0-44.9, adult / Hospital Z68.41(ICD-10) Repository 02/04/2018 Unknown I27.29 - Other DreAngus doherty Active [place] secondary pulmonary Community hypertension / Hospital I27.29(ICD-10) Repository 12/25/2017 Active Shortness of breath NA Active [facility] / R06.02(ICD-10) Clinic Main [place] Repository 11/06/2017 Active Rheumatic mitral LAHORRA, Active [place] stenosis / [facility] Clinic Other I05.0(ICD-10) [place] Repository 11/06/2017 Active Chronic diastolic LAHORRA, Active [place] (congestive) heart [facility] Other failure / [place] I50.32(ICD-10) Repository 11/06/2017 Active Rheumatic mitral LAHORRA, Active [place] valve disease, [facility] Clinic Other unspecified / [place] I05.9(ICD-10) Repository 11/06/2017 Admitting Unknown / LAHORRA, Active [place] [facility] diagnosis UNK(Unknown) [facility] Repository 10/17/2017 Unknown Z86.73 - 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), and cerebral Repository infarction without residual deficits / Z86.73(ICD-10) 10/17/2017 Unknown I34.2 - Nonrheumatic Flex Hearn Active [place] mitral (valve) Community stenosis / Hospital I34.2(ICD-10) Repository 10/17/2017 Unknown E78.5 - Flex Hearn Active [place] Hyperlipidemia, Community unspecified / Hospital E78.5(ICD-10) Repository 10/15/2017 Unknown J94.8 - Other Dre, Angus Active [place] specified pleural Community conditions / Hospital J94.8(ICD-10) Repository 10/03/2017 Unknown J90 - Pleural Jopperi, Corbin Active [place] effusion, not Community elsewhere classified Hospital / J90(ICD-10) Repository 10/03/2017 Unknown D50.9 - Iron Jopperi, Corbin Active [place] deficiency anemia, Community unspecified / Hospital D50.9(ICD-10) Repository 10/03/2017 Unknown 280.9 - Iron Jopperi, Corbin Active [place] deficiency anemia, Community unspecified / Hospital 280.9(ICD-9) Repository 10/03/2017 Unknown I10 - Essential Jopperi, Corbin Active [place] (primary) Community hypertension / Hospital I10(ICD-10) Repository [...] Unknown R91.8 - Other Dre, Angus Active [place] nonspecific abnormal Community finding of lung Hospital field / Repository R91.8(ICD-10) 06/12/2017 Unknown R06.00 - Dyspnea, [place], Active [place] unspecified / [place] Community R06.00(ICD-10) Hospital Repository PROCEDURES PROCEDURES No Procedure Records FoundRESULTS RESULTS CNCO Observed: 02/18/2018 Status: COMPLETED Source: [facility] 12:00 AM CLINIC MAIN [facility]AMP[facility] REPOSITORY Letter [...] CO2 30.0 Performed By: #### [id number] #### [facility] [address]. [place], [place], [id number] PROGRESS Observed: 02/08/2018 Status: COMPLETED Source: [place] 8:36 AM [facility] REPOSITORY HNO ID: [id number] Author: Bigg Lim Service: (none) Author Type: Physician Type: Progress Notes Filed: 02/08/2018 8:40 AM Note Text: Thoracic and Cardiovascular Surgery [facility] CARDIOTHORACIC CLINIC NOTE CHART COPY DO NOT DISCARD Patient Type: Established Visit to determine Surgery: Yes PCP: Guillermina Stanton MD ([facility]) [address] [place] [address] Referring Physician:: Mark Hollins MD [address] [address] Ms. Dedra Lara returns to clinic today [...] MD PROGRESS Observed: 02/07/2018 Status: COMPLETED Source: [place] 5:46 PM [facility] REPOSITORY HNO ID: [id number] Author: Padmini Church) Jose Service: (none) Author [...] given PROGRESS Observed: 02/07/2018 Status: COMPLETED Source: [place] 5:30 PM [facility] REPOSITORY HNO ID: [id number] Author: Padmini Church) Jose Service: (none) Author Type: Nurse Practitioner Type: Progress Notes Filed: 02/07/2018 5:30 PM Note Text: SEE HANDP NOTE STAPH AUREUS PCR Collected: 02/07/2018 Status: F Source: [facility] 4:27 PM [facility] REPOSITORY TYPE CODE TESTS RESULT OUT OF REFERENCE UNITS RANGE LAB [facility] Nasal S aureus Spec Source LAB [facility] Negative for MRSA MRSA by PCR. PCR LAB [facility] Negative for Staph Staphylococcus aureus PCR aureus by PCR. Performed By: #### SAPCR #### [facility] [address] [place], [place] [address] PROGRESS Observed: 02/07/2018 Status: COMPLETED Source: [facility] 4:22 PM [facility] REPOSITORY HNO ID: [id number] Author: Padmini Winters Service: (none) Author Type: Nurse Practitioner Type: Progress Notes Filed: 02/07/2018 6:21 PM Note Text: CONSULT HISTORY and PHYSICAL CARDIOTHORACIC SURGERY Consulting Service: Cardiothoracic Surgery Requesting Provider: [facility] Stone Driller Helper, Boone Perry MD on 12/25/17. Opinion/advice regarding: [...] been followed since that time by a butadiene converter helper in [place]. She was initially referred for possible mitral [...] states that she follows with her local it risk and assurance senior manager for LADI (uses bipap nightly) and Asthma, but notes that her it risk and assurance senior manager recently noted to her that he feels that she does not have asthma and that her breathing issues are more cardiac related and therefore recently stopped her Symbicort. She denies chest pain, palpitations, lightheadedness/dizziness and syncope when asked. She does experience some minor leg swelling, but her supply clerk recently increased her lasix to BID and [...] TUNNEL - CHOLECYSTECTOMY - ECHOCARDIOGRAM 09/17/2017 at [facility] - LEFT HEART CATH 06/25/2017 at [facility] - SHOULDER ARTHROSCOPY/SURG - TONSILLECTOMY AND [...] AND L Cardiac Catheterization: (outside) images In [facility] TTE: 02/07 CXR: 12/25 U/S Thyroid: 02/07 [...] provider electronically. SIGNATURE: Padmini Winters APRN.CNP PAGER: [phone] Date of Service: 02/07/2018 Time of Service: 4:22 PM CNOV Observed: 02/07/2018 Status: COMPLETED Source: [facility] 2:00 PM [facility] REPOSITORY Office Visit (CARTMN) DEDRA LARA ([id number]) 1945 F Date Time Provider Department 02/07/18 2:00 PM [facility] CARTME During your visit today, we recorded the following information about you: Padmini Winters APRN.CNP 02/07/2018 5:30 PM Signed SEE HANDP NOTE Referring Provider: MARK HOLLINS [[id number]] Allergies As of Date: 02/07/2018 Noted Allergy [...] 02/07/18 CNOV Observed: 02/07/2018 Status: COMPLETED Source: [place] 2:00 PM [facility] REPOSITORY Office Visit (CARTMN) DEDRA LARA ([id number]) 1945 F Date Time Provider Department 02/07/18 [...] TUNNEL - CHOLECYSTECTOMY - ECHOCARDIOGRAM 09/17/2017 at [facility] - LEFT HEART CATH 06/25/2017 at [facility] - SHOULDER ARTHROSCOPY/SURG - TONSILLECTOMY AND [...] PM PAGER/CONTACT #: Referring Provider: MARK HOLLINS [[id number]] Allergies As of Date: 02/07/2018 Noted Allergy [...] Breath Date Reviewed: 02/07/2018 Reviewed by: Padmini ([facility]) Jose - Fully Assessed Primary [...] MD 02/07/2018 5:48 PM discontinued by her supply clerk Problem List As Of Date 02/07/2018 Noted [...] Guerrero[] CNOV Observed: 02/07/2018 Status: COMPLETED Source: [place] 2:00 PM [facility] REPOSITORY Office Visit (CARTMN) DEDRA LARA ([id number]) 1945 F Date Time Provider Department 02/07/18 2:00 PM [facility]P [facility]INIC CARTMN During your visit today, we recorded the following information about you: Temperature Pulse Respiration Blood pressure 97.8 degrees 68/minute 18/minute 130/52 Weight Height 93 kg 1.571 m Padmini WintersCAPRI 02/07/2018 6:21 PM Signed CONSULT HISTORY and PHYSICAL CARDIOTHORACIC SURGERY Consulting Service: Cardiothoracic Surgery Requesting Provider: [facility] Stone Driller Helper, Boone Perry MD on 12/25/17. Opinion/advice regarding: [...] been followed since that time by a butadiene converter helper in [place]. She was initially referred for possible mitral [...] states that she follows with her local it risk and assurance senior manager for LADI (uses bipap nightly) and Asthma, but notes that her it risk and assurance senior manager recently noted to her that he feels that she does not have asthma and that her breathing issues are more cardiac related and therefore recently stopped her Symbicort. She denies chest pain, palpitations, lightheadedness/dizziness and syncope when asked. She does experience some minor leg swelling, but her supply clerk recently increased her lasix to BID and [...] TUNNEL - CHOLECYSTECTOMY - ECHOCARDIOGRAM 09/17/2017 at [facility] - LEFT HEART CATH 06/25/2017 at [facility] - SHOULDER ARTHROSCOPY/SURG - TONSILLECTOMY AND [...] AND L Cardiac Catheterization: (outside) images In [facility] TTE: 02/07 CXR: 12/25 U/S Thyroid: 02/07 CT Chest: 12/25 Hardesty's: 02/07 Dental clearance Cleared - See Scanned [...] the requesting provider electronically. SIGNATURE: Padmini Winters APRN.[facility] PAGER: [phone] Date of Service: 02/07/2018 Time of Service: 4:22 PM Referring Provider: MARK HOLLINS [[id number]] Allergies As of Date: 02/07/2018 Noted Allergy [...] Breath Date Reviewed: 02/07/2018 Reviewed by: Padmini ([facility]) Jose - Fully Assessed Primary Visit Diagnosis:Non-rheumatic mitral valve stenosis [I34.2] Other Visit Diagnoses:Thyroid nodule [E04.1] Obstructive sleep apnea [G47.33] Order(s):mupirocin (BACTROBAN) 2 % ointmentApply twice the day before surgery, and once in the morning before surgery.Disp: 1 TubeRfl: 0 ciprofloxacin HCl (CIPRO) 250 mg tabletTake 1 tablet by mouth twice daily for 3 days.Disp: 6 tabletRfl: 0 TSH BLD [SQTS] Order #: [id number] FUTURE Prescriptions as of 02/07/2018 Sig: FERROUS [...] daily for 3 days. Encounter Status:Closed by PADMIIN WINTERS CNP on 02/07/18 PROGRESS Observed: 02/07/2018 Status: COMPLETED Source: [place] 1:08 PM [facility] REPOSITORY [facility] ID: [id number] Author: Mari Limon Service: (none) Author Type: [...] TUNNEL - CHOLECYSTECTOMY - ECHOCARDIOGRAM 09/17/2017 at [facility] - LEFT HEART CATH 06/25/2017 at [facility] - SHOULDER ARTHROSCOPY/SURG - TONSILLECTOMY AND [...] 02/07/2018 Status: COMPLETED Source: [place] 1:00 PM [facility] REPOSITORY Office Visit (TOMN) DEDRA LARA ([id number]) 1945 F Date Time Provider Department 02/07/18 1:00 PM BIGG LIM [facility] During your visit today, we recorded the following information about you: Bigg Lim MD 02/08/2018 8:40 AM Signed Thoracic and Cardiovascular Surgery [facility] CARDIOTHORACIC CLINIC NOTE CHART COPY DO NOT DISCARD Patient Type: Established Visit to determine Surgery: Yes PCP: Guillermina Stanton MD ([facility]) [address] [place] [address] Referring Physician:: Mark Hollins MD [address] [facility] [address] [facility] [address] Ms. Dedra Lara returns to clinic today [...] Bigg Lim MD Referring Provider: MARK HOLLINS [[id number]] Allergies As of Date: 02/07/2018 Noted Allergy [...] Breath Date Reviewed: 02/07/2018 Reviewed by: Padmini (Cops) Jose - Fully Assessed Primary Visit Diagnosis:Non-rheumatic [...] 02/08/18 PROGRESS Observed: 02/07/2018 Status: COMPLETED Source: [place] 11:43 AM [facility] REPOSITORY HNO ID: [id number] Author: Michael AlvaradoRn) LEONIDES Pitt Service: (none) Author Type: Registered Nurse Type: Progress Notes Filed: 02/07/2018 11:45 AM Note Text: 02/07/2018 11:44 AM IV Access: IV IV Site: left Forearm IV GAUGE 24 gauge IV Removal Date 02/07/18 Time 1141 Reactions: WNL Order reviewed by nurse:yes Medications: Definity - dosage 2 ml given slow IV Reaction: No CNOV Observed: 02/07/2018 Status: COMPLETED Source: [place] 11:00 AM [facility] REPOSITORY Office Visit (CAFLMN) DEDRA LARA ([id number]) 1945 F Date Time Provider Department 02/07/18 11:00 AM CARD SURGICAL ECHO MAIN [facility] During your visit today, we recorded the following information about you: Michael Pitt RN, RN 02/07/2018 11:45 AM Signed 02/07/2018 11:44 AM IV Access: IV IV Site: left Forearm IV GAUGE 24 gauge IV Removal Date 02/07/18 Time 1141 Reactions: WNL Order reviewed by nurse:yes Medications: Definity - dosage 2 ml given slow IV Reaction: No Referring Provider: BIGG LIM [[id number]] Allergies As of Date: 02/07/2018 Noted Allergy [...] 02/07/18 URINALYSIS Collected: 02/07/2018 Status: F Source: [facility] 10:13 AM [facility]IC [facility]IN CAMP[facility] REPOSITORY TYPE CODE TESTS RESULT OUT OF RANGE REFERENCE UNITS LAB UCOL Yellow Color Yellow LAB [facility] Clear Clarity Abnormal Cloudy Alert LAB UGLUC Negative mg/dL Glucose, Urine Negative LAB UBIL Negative Bilirubin, Urine Negative LAB UKET Negative Ketones, Urine Negative LAB USPG 1.005-1.030 Specific [place], Ur 1.013 LAB UHGB Negative Hemoglobin/Blood, Negative [...] Comment: N/A Performed By: #### UA #### [facility] [employer] [address], [place] [address] PROTIME Collected: 02/07/2018 Status: F Source: [place] 9:35 AM [facility] REPOSITORY TYPE CODE TESTS RESULT OUT OF RANGE REFERENCE UNITS LAB PSEC 9.7-13.0 sec PT Sec 11.6 LAB INR 0.9-1.3 PT INR 1.1 Result Comment: Vitamin K Antagonist (VKA) Therapeutic Range: INR 2 to 3 (Target INR of 2.5) Note: For patients treated with VKA drugs, such as warfarin, the [place] [employer] Physicians 2012 Guideline recommends [...] Chest 2012, 141:7S-47S Roro RA, et al. [facility] 2017, 70: 252-289 Performed By: #### PT, PTT, CBCDIF, CMP, LD6, HBA1C #### [facility] [employer] [address] [place], [place] [address] APTT Collected: 02/07/2018 Status: F Source: [place] 9:35 AM [facility] REPOSITORY TYPE CODE TESTS RESULT OUT OF [...] laboratory APTT reagent in use throughout the [facility]. Performed By: #### PT, PTT, CBCDIF, CMP, LD6, HBA1C #### [facility] [address] [place], [place] [address] CBC AND DIFFERENTIAL Collected: 02/07/2018 Status: F Source: [place] 9:35 AM [facility] [place] REPOSITORY TYPE CODE TESTS RESULT OUT OF [...] k/uL Abs Lymph 1.87 LAB AMONO % Rincon% 10.0 LAB AAMONO <0.87 k/uL Abs Rincon 0.61 LAB AEOS % Eosin% 3.1 LAB AAEOS <0.46 k/uL Abs Eosin 0.19 LAB ABASO % Baso% 0.7 LAB AABASO <0.11 k/uL Abs Baso 0.04 LAB AUNRBC 0 /100 WBC NRBCs 0.0 LAB ABNRBC <0.01 k/uL Absolute nRBC <0.01 LAB DTYP DTYPE Auto Diff Performed By: #### PT, PTT, CBCDIF, CMP, LD6, HBA1C #### [facility] [address] [place], [place] [address] COMP METABOLIC PANEL Collected: 02/07/2018 Status: F Source: [place] 9:35 AM [facility] REPOSITORY TYPE CODE TESTS RESULT OUT OF REFERENCE UNITS RANGE LAB TP 6.3-8.0 g/dL Protein, Total 7.5 LAB ALB 3.9-4.9 g/dL Low Albumin 3.7 LAB CA 8.5-10.2 mg/dL Calcium, Total 9.8 LAB TBIL 0.2-1.3 mg/dL Bilirubin, Total 0.5 LAB ALKP 34-123 U/L Alkaline Phosphatase 89 LAB AST 13-35 U/L AST 25 LAB GLU 74-99 mg/dL Glucose High 118 Result Comment: The [place] Diabetes Association (ADA) provides guidance for cutoff [...] Standards of Medical Care in Diabetes 2016, [place] Diabetes Association. Diabetes Care. 2016.39(Suppl 1). LAB [...] PT, PTT, CBCDIF, CMP, LD6, HBA1C #### [facility] [employer] [address] [place] [address] LD Collected: 02/07/2018 Status: F Source: [facility] 9:35 AM MAIN [place] REPOSITORY TYPE CODE TESTS RESULT OUT OF RANGE REFERENCE UNITS LAB LD 135-214 U/L High LD 267 Performed By: #### PT, PTT, CBCDIF, CMP, LD6, HBA1C #### [facility] [employer] [address] [place] [address] HEMOGLOBIN A1C Collected: 02/07/2018 Status: F Source: [place] 9:35 AM [facility] REPOSITORY TYPE CODE TESTS RESULT OUT OF REFERENCE UNITS RANGE LAB HGBA1C 4.3-5.6 % High Hemoglobin A1c 6.5 Result Comment: [place] Diabetes Association guidelines indicate that patients with HgbA1c in the range 5.7-6.4% are at increased risk for development of diabetes, and intervention by lifestyle modification may be beneficial. HgbA1c greater or equal to 6.5% is considered diagnostic of diabetes. LAB HBA0 mg/dL Est. Average Glucose 140 Result Comment: eAG: (Estimated average glucose) is a calculated value from HgbA1c and is medical field representative of the average blood glucose level in the last 2-3 month period. Performed By: #### PT, PTT, CBCDIF, CMP, LD6, HBA1C #### [facility] [employer] [address] [place] [address] TYPE AND SCR (30D) Collected: 02/07/2018 Status: F Source: [place] 9:35 AM [facility] REPOSITORY TYPE CODE TESTS RESULT OUT OF REFERENCE UNITS RANGE LAB %ABR B ABO/RH(D) NEGATIVE LAB % Antibody NEG Screen Performed By: #### [id number] #### [facility] [employer] [address] [place] [address] TSH Collected: 02/07/2018 Status: F Source: [place] 9:35 AM [facility] REPOSITORY TYPE CODE TESTS RESULT OUT OF RANGE REFERENCE UNITS LAB TSH 0.400-5.500 uU/mL TSH 1.460 Performed By: #### TSH #### [facility] [address] [place], [place] [address] US THYROID/PARATHYROID Observed: 02/07/2018 Status: F Source: [place] 8:44 AM [facility] REPOSITORY * * *Final Report* * * [...] 0 points Echogenicity: Hypoechoic, 2 points Shape: Wumkr-pgoq-tngh, 0 points Margin: Smooth, 0 points Echogenic [...] 1 point Echogenicity: Hypoechoic, 2 points Shape: Reupt-bhpb-rnjq, 0 points Margin: Smooth, 0 points Echogenic [...] cystic, 0 points Echogenicity: Anechoic,0 points Shape: Kjrax-eqes-iksl, 0 points Margin: Smooth, 0 points Echogenic [...] 0 points Echogenicity: Hypoechoic, 2 points Shape: Cqlkq-puns-qnxc, 0 points Margin: Smooth, 0 points Echogenic foci (Add points for all that apply): None, 0 points Internal vascularity: absent Interval growth:No prior available for comparison Total points / TI-RADS Category: 2 TI-RADS 2 ACR Recommendation: TI-RADS 2 Nodule. No follow-up or FNA is advised. IMPRESSION: THYROID NODULES PRESENT. ACR TI-RADS LEVEL AND RECOMMENDATIONS DETAILED IN BODY OF REPORT. Food Service Manager: RICHARD Transcribe Date/Time: Feb 07 2018 8:54A Dictated by : CRALYLE SAWYER JR, MD This examination was interpreted and the report reviewed and electronically signed by: CARLYLE SAWYER JR, MD on Feb 07 2018 11:44AM EST [id number] US ABDOMEN COMPLETE Observed: 02/07/2018 Status: F Source: [place] 8:25 AM [facility] REPOSITORY * * *Final Report* * * DATE OF EXAM: Feb 07 2018 8:25AM [facility] 1040 - US ABDOMEN COMPLETE / PROCEDURE [...] CT MAY BE HELPFUL FOR FURTHER EVALUATION. Food Service Manager: RICHARD Transcribe Date/Time: Feb 07 2018 8:51A Dictated by : CARLYLE SAWYER JR, MD This examination was interpreted and the report reviewed and electronically signed by: CARLYLE SAWYER JR, MD on Feb 07 2018 10:24AM EST [id number] CNCNPATED Observed: 02/07/2018 Status: COMPLETED Source: [place] 12:00 AM [facility] REPOSITORY Education (CARTMN) DEDRA LARA ([id number]) 1945 F Date Time Provider Department 02/07/18 PADMINI WINTERS ([facility]) CARTMN Reason for Visit: Patient Education [...] Breath Date Reviewed: 02/07/2018 Reviewed by: [facility] Jose - Fully Assessed Prescriptions [...] 02/04/2018 Status: F Source: [place] 9:16 AM [facility] REPOSITORY TYPE CODE TESTS RESULT OUT OF [...] CO2 28.0 Performed By: #### L500.3600 #### [facility] [address] [place], [address] PTHIN Collected: 02/04/2018 Status: F Source: [place] 9:16 AM [facility] REPOSITORY TYPE CODE TESTS RESULT OUT OF RANGE REFERENCE UNITS LAB L509.1000 18.4-80.1 pg/mL High PTHIN 94.3 Performed By: #### L509.1000 #### [facility] [address] [place], [address] PULMONARY VISIT REPORT Observed: 01/28/2018 Status: F Source: [place] 1:10 PM [facility] REPOSITORY [facility] [address] [place] [address] OFFICE VISIT Date of Service: 01/28/18 MR#: [id number] Acct: [id number] Name: DEDRA LARA Rep #: [id number] : 1945 Provider: Angus Erickson MD Age/Sex: 72/F Location: [facility].PMW Status: Signed Assessment AND Plan Problems 1. [...] burst. Patient has been evaluated by the [facility] is supposed to have a valve [...] kg Intake Visit Reasons: 3 M FU Customer Solutions Representative Required: No Accompanied by: Self Is patient [...] pulmonary hypertension (Chronic) Atherosclerotic heart disease of [place] coronary artery without angina pectoris (Chronic) LADI [...] MD PROGRESS Observed: 01/11/2018 Status: COMPLETED Source: [place] 7:34 AM [facility] REPOSITORY HNO ID: [id number] Author: Bigg Lim Service: (none) Author Type: Physician Type: Progress Notes Filed: 01/11/2018 7:38 AM Note Text: Thoracic and Cardiovascular Surgery [facility] SURGICAL STAFF CONSULT Patient Type: CONSULT Visit to determine Surgery: YES PCP: Guillermina Stanton MD ([facility]) [address] [facility] [address] [place] [address] Referring Physician: Guillermina Stanton MD ([facility]) [address] [place] [address] HPI: Ms. Dedra Lara is a seen [...] MD PROGRESS Observed: 01/08/2018 Status: COMPLETED Source: [facility] 9:27 AM CLINIC MAIN CAMPUS REPOSITORY HNO ID: [id number] Author: Bigg Lim Service: (none) Author Type: Physician Type: Progress Notes Filed: 01/08/2018 9:29 AM Note Text: Thoracic and Cardiovascular Surgery [facility] CARDIOTHORACIC CLINIC NOTE CHART COPY DO NOT DISCARD Patient Type: Established Visit to determine Surgery: Yes PCP: Guillermina Stanton MD ([facility]) [address] [place] [address] Referring Physician:: SELF Ms. Dedra Lara returns [...] MD CNOV Observed: 01/07/2018 Status: COMPLETED Source: [place] 2:00 PM [facility] REPOSITORY Office Visit (TOMN) DEDRA LARA Gita ([id number]) 1945 F Date Time Provider Department 01/07/18 2:00 PM BIGG LIM TOMN During your visit today, we recorded the following information about you: Bigg Lim MD 01/08/2018 9:29 AM Signed Thoracic and Cardiovascular Surgery [facility] CARDIOTHORACIC CLINIC NOTE CHART COPY DO NOT DISCARD Patient Type: Established Visit to determine Surgery: Yes PCP: Guillermina Stanton MD ([facility]) [address] [place] [address] Referring Physician:: SELF Ms. Dedra Lara returns [...] 01/08/18 CNCO Observed: 01/06/2018 Status: COMPLETED Source: [place] 12:00 AM [facility] REPOSITORY Letter Text Angela Lopez Department of Cardiovascular Medicine [address] [place] [address] /[place] [id number] Office: [phone] January 06, 2018 NAME: DEDRA LARA : 1945 CLINIC NO: [id number] DATE OF SERVICE: 12/25/2017 It was my [...] would not work. We also cannot do udebr-sw-WFH because she has a small LV cavity [...] questions. Sincerely yours, Boone Perry AK/089 Audio#: [id number] Date Dictated: 12/25/2017 08:31:54 Date Typed: 12/30/2017 05:35:34 cc: Dedra Davis [address] [place], [place] [address] BRIEF OP NOT Observed: 12/31/2017 Status: COMPLETED Source: [place] 9:56 AM [facility] REPOSITORY HNO ID: [id number] Author: Jorge Hercules Service: Cardiovascular Medicine Author [...] O2HB (ARTERIAL) Collected: 12/31/2017 Status: F Source: [facility] 9:44 AM [facility] REPOSITORY TYPE CODE TESTS RESULT OUT OF RANGE REFERENCE UNITS LAB O2HBA(LOINC 92.00-100.00 % ) Low % O2HB 54.00 (arterial) Performed By: #### O2HBA #### [place] [address] HISTORY PHYSICAL Observed: 12/31/2017 Status: COMPLETED Source: [place] 8:45 AM [facility] REPOSITORY HNO ID: [id number] Author: Jorge Hercules Service: Cardiovascular Medicine Author [...] W/DIFF, AUTOMATED Collected: 12/30/2017 Status: F Source: [place] 10:28 AM [facility] REPOSITORY TYPE CODE TESTS RESULT OUT OF [...] Lymph 1.69 Performed By: #### L100.0100 #### [facility] [address] [place], [place], [address] IRON Collected: 12/30/2017 Status: F Source: [place] 10:28 AM [facility] REPOSITORY TYPE CODE TESTS RESULT OUT OF RANGE REFERENCE UNITS LAB L503.6150 50-170 ug/dL Normal IRON 100 Performed By: #### L503.6150, L503.6550 #### [facility] [address] [place], [address] FERRITIN Collected: 12/30/2017 Status: F Source: [place] 10:28 AM [facility] REPOSITORY TYPE CODE TESTS RESULT OUT OF RANGE REFERENCE UNITS LAB L503.6550 8-252 ng/mL Normal FERRITIN 66 Performed By: #### L503.6150, L503.6550 #### [facility] [address] [place], [address] HOSP Observed: 12/26/2017 Status: COMPLETED Source: [place] 12:00 AM CLINIC OTHER CAMPUS REPOSITORY Patient:Dedra Lara MRN: <[id number]> Height:5' 1(1.549 m) Weight:212 lb (96.163 kg) [...] 35.4 % 12/25/2017 46.0 36.0 Progress Notes ([facility]): Tatiana Giron RN 12/26/2017 8:59 AM Signed Patient scheduled for right heart cath, rt femoral, with Dr Ramos on 12/31/17. Instructions reviewed. Questions answered. Patient verbalized understanding. Instructions were as follows: -Arrive to [facility] Entrance 12/31/17 at time assigned by [facility] farm laborer staff in phone call 12/30/17 PM.. -Nothing by mouth after midnight evening prior. -With a sip of water on 12/31/17 morning take: Aspirin 325mg along with usual BP meds- Metoprolol. -Pt will hold oral DM meds 12/31 am. She will alter her 12/30 HS insulin per recommendations prescribing MD. -Labs done. - You must have someone drive you home from your procedure. -farm laborer policy is pt not be alone first evening Office phone number provided for questions or concerns. [facility] electrical laboratory technician notified. LEONIDES Hassan 12/26/2017 1:00 PM Signed [...] for you. Jeri Go Progress Notes ([facility]): Sary Dickerson RN 12/25/2017 2:35 PM Signed Patient seen in evaluation by Dr. Lim who has requested a right heart cath for the patient who prefers to have it performed at [facility]. Contacted Dr. Hollins's office and left message for his inter com installer. Dr. Lim wishes to see patient for follow-up after the right heart cath has been completed. CNOV Observed: 12/25/2017 Status: COMPLETED Source: [place] 12:30 PM [facility] REPOSITORY [facility] DEDRA LARA ([id number]) 1945 F Date Time Provider Department 12/25/17 12:30 PM BIGG LIM [facility] During your visit today, we recorded the following information about you: Bigg Lim MD 01/11/2018 7:38 AM Signed Thoracic and Cardiovascular Surgery [facility] SURGICAL STAFF CONSULT Patient Type: CONSULT Visit to determine Surgery: YES PCP: Guillermina Stanton MD ([facility]) [address] [place], [place] [address] Referring Physician: Guillermina Stanton MD ([facility]) [address] [place], [place] [id number] HPI: Ms. Dedra Lara is a seen [...] Bigg Lim MD Referring Provider: GUILLERMINA STANTON [[id number]] Allergies As of Date: 12/25/2017 Noted Allergy [...] CARDIAC WO Observed: 12/25/2017 Status: F Source: [facility] 9:21 AM [facility] [place] REPOSITORY * * *Final Report* * * [...] arch vessel branching pattern is normal . Auto Camp Attendant dimensions of the thoracic aorta are as [...] Moderate right pleural effusion with adjacent atelectasis. Food Service Manager: RICHARD Transcribe Date/Time: Dec 25 2017 9:29A Dictated by : MILTON ORDAZ MD This examination was interpreted and the report reviewed and electronically signed by: INDU BRUCE MD on Dec 25 2017 12:04PM EST [id number] PROGRESS Observed: 12/25/2017 Status: COMPLETED Source: [place] 9:19 AM [facility] REPOSITORY HNO ID: [id number] Author: OLGA LIDIA Neri (Ct) Service: Radiology Author Type: Clinical Scout Executive Type: Progress Notes Filed: 12/25/2017 9:20 AM [...] AM CNOV Observed: 12/25/2017 Status: COMPLETED Source: [place] 8:00 AM [facility] REPOSITORY Office Visit (CATHMN) ORINDEDRA Massey ([id number]) 1945 F Date Time Provider Department 12/25/17 8:00 AM [facility] CATHMN During your visit today, we recorded the following information about you: Pulse Blood pressure 51/minute 170/67 Collette Martinez [facility] 01/06/2018 5:04 PM Signed [facility] [place] Bautista Hanna Department of Cardiovascular Medicine SECTION OF INTERVENTIONAL CARDIOLOGY OUTPATIENT VISIT DATE December 25, 2017 OUTPATIENT VISIT TYPE CONSULTATION PRIMARY CARE PHYSICIAN: Guillermina Stanton MD ([facility]) [address] [place] [address] REFERRING PHYSICIAN Bigg Lim MD [address] [facility] [address] SEE STAFF NOTE BELOW: CHIEF COMPLAINT: severe [...] TUNNEL - CHOLECYSTECTOMY - ECHOCARDIOGRAM 09/17/2017 at [facility] - LEFT HEART CATH 06/25/2017 at [facility] - SHOULDER ARTHROSCOPY/SURG - TONSILLECTOMY AND [...] would not work. We also cannot do qpkby-pl-QON because she has a small LV cavity that is hyperdynamic and, therefore, this will result in substantial and likely fatal LVOT obstruction. As such, her best option is for surgical mitral valve replacement. She is to see one of our cardiac surgeons, Dr. Srinivas Lim, in this regard later today. Please feel free to contact me with any questions. AK/089 Audio#: [id number] Date Dictated: 12/25/2017 08:31:54 Date Typed: 12/30/2017 05:35:34 Referring Provider: BIGG LIM [[id number]] Allergies As of Date: 12/25/2017 Noted Allergy [...] 12/25/2017 Status: COMPLETED Source: [place] 7:57 AM [facility] REPOSITORY HNO ID: [id number] Author: Collette Martinez [facility] Service: (none) Author Type: (none) Type: Progress Notes Filed: 01/06/2018 5:04 PM Note Text: [facility] [place] [facility]autista Hanna Department of Cardiovascular Medicine SECTION OF INTERVENTIONAL CARDIOLOGY OUTPATIENT VISIT DATE December 25, 2017 OUTPATIENT VISIT TYPE CONSULTATION PRIMARY CARE PHYSICIAN: Guillermina Stanton MD ([facility]) [address] [place] [address] REFERRING PHYSICIAN Bigg Lim MD [address] [facility] [address] SEE STAFF NOTE BELOW: CHIEF COMPLAINT: severe [...] TUNNEL - CHOLECYSTECTOMY - ECHOCARDIOGRAM 09/17/2017 at [facility] - LEFT HEART CATH 06/25/2017 at [facility] - SHOULDER ARTHROSCOPY/SURG - TONSILLECTOMY AND [...] 50 mg by mouth daily at bedtime. BASAGLKIZZY HANSONPEN U-100 INSULIN 100 unit/mL (3 mL) [...] would not work. We also cannot do xpgup-na-DNP because she has a small LV cavity that is hyperdynamic and, therefore, this will result in substantial and likely fatal LVOT obstruction. As such, her best option is for surgical mitral valve replacement. She is to see one of our cardiac surgeons, Dr. Srinivas Lim, in this regard later today. Please feel free to contact me with any questions. AK/089 Audio#: [id number] Date Dictated: 12/25/2017 08:31:54 Date Typed: 12/30/2017 05:35:34 PROTIME Collected: 12/25/2017 Status: F Source: [place] 7:30 AM [facility] REPOSITORY TYPE CODE TESTS RESULT OUT OF RANGE REFERENCE UNITS LAB PSEC 9.7-13.0 sec PT Sec 11.3 LAB INR 0.9-1.3 PT INR 1.1 Result Comment: Vitamin K Antagonist (VKA) Therapeutic Range: INR 2 to 3 (Target INR of 2.5) Note: For patients treated with VKA drugs, such as warfarin, the [place] [employer] Physicians 2012 Guideline recommends [...] Chest 2012, 141:7S-47S Roro RA, et al. [facility] 2017, 70: 252-289 Performed By: #### PT, PTT, CBCDIF, CMP, NTBNP #### [facility] [address] [place], [place] [address] APTT Collected: 12/25/2017 Status: F Source: [place] 7:30 AM [facility] REPOSITORY TYPE CODE TESTS RESULT OUT OF [...] laboratory APTT reagent in use throughout the [facility]. Performed By: #### PT, PTT, CBCDIF, CMP, NTBNP #### [facility] [employer] [address] [place], [place] [address] CBC AND DIFFERENTIAL Collected: 12/25/2017 Status: F Source: [place] 7:30 AM [facility] REPOSITORY TYPE CODE TESTS RESULT OUT OF [...] k/uL Abs Lymph 1.73 LAB AMONO % Rincon% 10.2 LAB AAMONO <0.87 k/uL Abs Rincon 0.78 LAB AEOS % Eosin% 2.7 LAB AAEOS <0.46 k/uL Abs Eosin 0.21 LAB ABASO % Baso% 0.5 LAB AABASO <0.11 k/uL Abs Baso 0.04 LAB AUNRBC 0 /100 WBC NRBCs 0.0 LAB ABNRBC <0.01 k/uL Absolute nRBC <0.01 LAB DTYP DTYPE Auto Diff Performed By: #### PT, PTT, CBCDIF, CMP, NTBNP #### [facility] [employer] [address] [place], [place] [address] COMP METABOLIC PANEL Collected: 12/25/2017 Status: F Source: [place] 7:30 AM [facility] REPOSITORY TYPE CODE TESTS RESULT OUT OF REFERENCE UNITS RANGE LAB TP 6.3-8.0 g/dL Protein, Total 7.7 LAB ALB 3.9-4.9 g/dL Low Albumin 3.8 LAB CA 8.5-10.2 mg/dL Calcium, Total 9.5 LAB TBIL 0.2-1.3 mg/dL Bilirubin, Total 0.4 LAB ALKP 34-123 U/L Alkaline Phosphatase 101 LAB AST 13-35 U/L AST 28 LAB GLU 74-99 mg/dL Glucose High 124 Result Comment: The [place] Diabetes Association (ADA) provides guidance for cutoff [...] Standards of Medical Care in Diabetes 2016, [place] [employer]. Diabetes Care. 2016.39(Suppl 1). LAB [...] #### PT, PTT, CBCDIF, CMP, NTBNP #### [facility] [address], [place] [address] NT PRO BNP Collected: 12/25/2017 Status: F Source: [place] 7:30 AM [facility] REPOSITORY TYPE CODE TESTS RESULT OUT OF REFERENCE UNITS RANGE LAB PBNP <125 pg/mL High PRO B Natr 625 Peptide Performed By: #### PT, PTT, CBCDIF, CMP, NTBNP #### [place] [id number] TYPE AND SCR (30D) Collected: 12/25/2017 Status: F Source: [place] 7:30 AM [facility] REPOSITORY TYPE CODE TESTS RESULT OUT OF REFERENCE UNITS RANGE LAB %ABR B ABO/RH(D) NEGATIVE LAB % Antibody NEG Screen Performed By: #### [id number] #### [address] [address] PROGRESS Observed: 12/25/2017 Status: COMPLETED Source: [place] 7:23 AM [facility] REPOSITORY HNO ID: [id number] Author: Noa Hirsch Service: (none) Author Type: [...] 2V FRONTAL/LAT Observed: 12/25/2017 Status: F Source: [place] 7:18 AM [facility] REPOSITORY * * *Final Report* * * [...] Radiographic findings suggestive of congestive heart failure. Food Service Manager: PSCB Transcribe Date/Time: Dec 25 2017 1:09P Dictated by : ASHLI MACIAS MD This examination was interpreted and the report reviewed and electronically signed by: ASHLI MACIAS MD on Dec 25 2017 1:09PM EST [id number] ECG COMPLETE W Observed: 12/25/2017 Status: F Source: [place] INTERPRETATION 7:18 AM [facility] REPOSITORY NAME : DEDRA LARA PID : [id number] : 1945 Gender : Female Race : Unknown ORD : [id number] Procedure Date : Dec 25 2017 07:18:34 Edit Date : Dec 31 2017 14:50:55 Diagnosis:SINUS BRADYCARDIA POSSIBLE LEFT ATRIAL ENLARGEMENT BORDERLINE ECG Confirmed by QUETA SIERRA M.D. ([id number]) on 12/31/2017 2:36:22 PM Ventricular Rate : 55 BPM Atrial Rate : 55 BPM P-R Interval : 192 ms QRS Duration : 98 ms Q-T Interval : 450 ms QTC Calculation(Bezet) : 430 ms P [place] : 69 degrees R [place] : 9 degrees T [place] : 13 degrees Test Reason : Location : 314 : J14 Overread By : QUETA SIERRA M.D. Edited By : QUETA SIERRA M.D. Referred By : BIGG LIM Acquired by : DAMIAN CHIANG Observed: 11/20/2017 Status: COMPLETED Source: [place] 12:00 AM [facility] REPOSITORY Telephone (AGVASACC) DEDRA LARA ([id number]) 1945 F Date Time Provider Department 11/20/17 [...] Fully Assessed Reason for Visit: Referral Information [4061] Primary Visit Diagnosis:Mitral valve stenosis, non-rheumatic [I34.2] Other Visit Diagnoses:Left ventricular hypertrophy [I51.7] Enlarged LA (left atrium) [I51.7] Mitral annular calcification [I05.9] Order(s):CONSULT TO CARDIOTHORACIC SURG [] Order #: [id number]: 1 Prescriptions as of 11/20/2017 Sig: VENTOLIN [...] HISTORY PHYSICAL Observed: 11/06/2017 Status: COMPLETED Source: [place] 9:43 AM [facility] REPOSITORY O ID: [id number] Author: Mark Hollins Service: (none) Author Type: [...] of 1.3. She is to see a supply clerk near future. This is a setting of [...] TUNNEL - CHOLECYSTECTOMY - ECHOCARDIOGRAM 09/17/2017 at [facility] - LEFT HEART CATH 06/25/2017 at [facility] - SHOULDER ARTHROSCOPY/SURG - TONSILLECTOMY AND [...] I'm recommending that she be evaluated at [facility] for mitral valve replacement. A bioprosthesis would be indicated given her age and history of recent GI bleeding. She will be seen a dentist in preparation for possible surgery. Mark Hollins MD CNOV Observed: 11/06/2017 Status: COMPLETED Source: [place] 8:30 AM [facility] REPOSITORY Office Visit (AGVASACC) DEDRA LARA ([id number]) 1945 F Date Time Provider Department 11/06/17 [...] of 1.3. She is to see a supply clerk near future. This is a setting of [...] TUNNEL - CHOLECYSTECTOMY - ECHOCARDIOGRAM 09/17/2017 at [facility] - LEFT HEART CATH 06/25/2017 at [facility] - SHOULDER ARTHROSCOPY/SURG - TONSILLECTOMY AND [...] I'm recommending that she be evaluated at [facility] for mitral valve replacement. A bioprosthesis would be indicated given her age and history of recent GI bleeding. She will be seen a dentist in preparation for possible surgery. Mark Hollins MD Referring Provider: FLEX HEARN [[id number]] Allergies As of Date: 11/06/2017 Noted Allergy [...] New Patient Evaluation [154] Cmt: Rfd by [facility] for Mitral Valve Stenosis. Primary [...] of Service: NEW PATIENT VISIT LEVEL 4 [20131] Letter Text Encounter Status:Closed by MARK HOLLINS MD on 11/06/17 BASIC METABOLIC Collected: 11/05/2017 Status: F Source: [place] PROFILE (BMP) 8:02 AM [facility] REPOSITORY Order Comment: Order Date: 08/09/17 Order Info: 0667-1 - BMP Order Info: 01658-2 - LIPID TYPE CODE TESTS RESULT OUT [...] Performed By: #### L500.2500, L500.4100, L501.9985 #### [facility] [address] [place], [address] LIPID PROFILE Collected: 11/05/2017 Status: F Source: [place] 8:02 AM [facility] REPOSITORY Order Comment: Order Date: 08/09/17 Order Info: 0667-1 - BMP Order Info: 03294-7 - LIPID TYPE CODE TESTS RESULT OUT [...] By: #### L500.2500, L500.4100, L501.9985 #### [place] [facility] [address] [place], [address] HEMOGLOBIN A1C Collected: 11/05/2017 Status: F Source: [place] 8:02 AM [facility] REPOSITORY Order Comment: Order Date: 08/09/17 Order Info: 4548-4 - A1C TYPE CODE TESTS RESULT OUT OF RANGE REFERENCE UNITS LAB L501.9985 4.2-6.3 % Normal HGB A1C 6.0 Performed By: #### L500.2500, L500.4100, L501.9985 #### [facility] [address] [place], [address] OFFICE VISIT REPORT Observed: 11/04/2017 Status: F Source: [place] 2:48 PM [facility] REPOSITORY [facility] [address] [place] [address] OFFICE VISIT Date of Service: 10/30/17 MR#: [id number] Acct: [id number] Patient: DEDRA LARA Rep #: [id number] : 1945 Provider: Flex Hearn MD Age/Sex: 72/F Location: [facility] Status: Signed Intake Intake Visit Reasons: 2 [...] FINAL SURGICAL Observed: 11/01/2017 Status: F Source: [facility] PATHOLOGY REPORT 10:58 [facility] REPOSITORY . Pathology Reports Accession: Collected Date/Time: Received Date/Time: Pathologist: [id number] 11/01/2017 10:58 EDT 11/04/2017 08:17 EDT MD MONIQUE CROOK Final Surgical Pathology Report DIAGNOSIS: DESCENDING COLON, BIOPSY: - TUBULAR ADENOMA. COMMENT: [facility]# [id number] CLINICAL INFORMATION: Procedure: COLONOSCOPY WITH ARGON PLASMA COAGULATION OF ARTERIOVENOUS MALFORMATION OF COLON Preoperative diagnosis: FE DEF ANEMIA Postoperative diagnosis: SAME SPECIMEN: A POLYP, DESCENDING COLON - BIOPSY OF GROSS DESCRIPTION: Received in formalin labeled descending colon polyp biopsy are 2 pemberton glistening soft tissues, 0.3 and 0.4 cm. TS -1 Dictated by Katie KRUSE ([facility]) MICROSCOPIC DESCRIPTION: Slides reviewed. Electronically Signed by Pathology Report verified by [facility] Electronically signed by MONIQUE CROOK MD Sign out Date: 11/05/2017 13:19 Performing Lab: [facility], [address] [place] [id number] [place] [address] Performed By: #### SPFR #### [address] [address] CAROTID DUPLEX Observed: 10/30/2017 Status: F Source: [place] ULTRASOUND 3:40 PM [facility] REPOSITORY [facility] Cardiovascular Services [address] [place] [address] Carotid Duplex Ultrasound 10/30/17 0859 MR#: [id number] Acct: [id number] Name: DEDRA LARA Rep #: [id number] : 1945 72 From: Dmitriy Palomino MD [...] the left vertebral artery. Procedure Carotid Duplex 54230. Exam performed in department. Interpretation Summary Mild (<50%) stenosis right extracranial internal carotid. Mild (<50%) stenosis left extracranial internal carotid. Flow within the vertebral arteries is antegrade bilaterally. Ordering Physician: Flex Hearn Referring Physician: Guillermina Stanton M.D. Performed By: Sary Cook RVT 10/30/17 1539 Date Dmitriy Palomino MD CC: Flex Hearn MD; Guillermina Stanton MD Date Dictated: 10/30/17 0859 Date Transcribed: 10/30/171538 Food Service Manager: Signed BASIC METABOLIC Collected: 10/30/2017 Status: F Source: [place] PROFILE (BMP) 8:50 AM [facility] REPOSITORY TYPE CODE TESTS RESULT OUT OF [...] GAP 5 Performed By: #### L500.2500 #### [facility] [address] [place], [address] CARDIOLOGY VISIT Observed: 10/17/2017 Status: F Source: [place] REPORT 2:35 PM [facility] REPOSITORY [facility] [address] [place] [address] OFFICE VISIT Date of Service: 10/17/17 MR#: [id number] Acct: [id number] Name: DEDRA LARA Rep #: [id number] : 1945 Provider: Flex Hearn MD Age/Sex: 72/F Location: [facility] Status: Signed HPI HPI Chief Complaint: [...] On 10/26/2015 the patient was admitted to [facility] with acute on recurrent visual disturbance [...] awaiting consultation with Dr. Hollins back on [facility] for her mitral valve replacement surgery. Currently [...] 120/56 Intake Visit Reasons: 4 WK S/P 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 I personally called Dr. Hollins's WATER QUALITY TESTER, Khai, and set up a CV surgery [...] completion of her GI workup with Dr. Tsocano prior to referral to CV surgery. Her [...] MD CRP Collected: 10/16/2017 Status: F Source: [place] 11:12 AM [facility] REPOSITORY TYPE CODE TESTS RESULT OUT OF RANGE REFERENCE UNITS LAB L501.6710 0.0-3.0 mg/L High 4.64 C-REACTIVE PROT Result Comment: C-Reactive Protein (CRP) provides useful information for the diagnosis, therapy and monitoring of inflammatory processes and associated diseases. For the evaluation of Relative Risk for Cardiovascular Disease, a High Sensitivity CRP (HSCRP) should be ordered. Performed By: #### L501.6710, L503.6150, L503.6550 #### [facility] [address] [place], [place], [address] IRON Collected: 10/16/2017 Status: F Source: [place] 11:12 AM [facility] REPOSITORY TYPE CODE TESTS RESULT OUT OF RANGE REFERENCE UNITS LAB L503.6150 50-170 ug/dL Normal IRON 68 Performed By: #### L501.6710, L503.6150, L503.6550 #### [facility] [address] [place], [place], [address] FERRITIN Collected: 10/16/2017 Status: F Source: [place] 11:12 AM [facility] REPOSITORY TYPE CODE TESTS RESULT OUT OF RANGE REFERENCE UNITS LAB L503.6550 8-252 ng/mL Normal FERRITIN 72 Performed By: #### L501.6710, L503.6150, L503.6550 #### [facility] [address] [place], [place], [address] CELIAC DISEASE Collected: 10/16/2017 Status: F Source: [place] PROFILE 11:12 AM [facility] REPOSITORY TYPE CODE TESTS RESULT OUT OF RANGE REFERENCE UNITS LAB L3200.1400 64-422 mg/dL Normal IMMUNO A 344 Result Comment: Performed at: - [facility] [address] [id number] Materials Specialist: Brendon Browning PhD, Phone: [phone] LAB L3638.6387 0-3 U/mL Normal tTG IGA <2 Result Comment: Negative 0 - 3 Weak Positive 4 - 10 Positive >10 Tissue Transglutaminase (tTG) has been identified as the endomysial antigen. Studies have demonstr- ated that endomysial IgA antibodies have over 99% specificity for gluten sensitive enteropathy. LAB L3410.4619 Negative Normal ENDOMYSIAL IGA Negative Performed By: #### L3410.2400 #### [facility] (refer to report for specific site) refer to report for address and phone number CHEST PA AND LATERAL Observed: 10/15/2017 Status: F Source: [place] 9:17 AM [facility] REPOSITORY [facility] Imaging Services [address] [place] [address] Chest PA and Lateral MR#: [id number] Acct: [id number] Name: DEDRA LARA Rep #: [id number] : 1945 F 72 From: Yg Cárdenas DO PCP: Guillermina Stanton MD Status: REG CLI Study: Chest PA and Lateral Date of Exam: 10/15/17 Exam# [id number] Ordering Dr: Angus Erickson MD STUDY: X-RAY [...] Yg Cárdenas DO at 20:49 EDT Tel [phone], Service support , CC: Angus Erickson MD; Guillermina Stanton MD Food Service Manager: Signed PULMONARY VISIT REPORT Observed: 10/09/2017 Status: F Source: [place] 3:30 PM [facility] REPOSITORY [facility] [address] [place] [address] OFFICE VISIT Date of Service: 10/09/17 MR#: [id number] Acct: [id number] Name: DEDRA LARA Rep #: [id number] : 1945 Provider: Angus Erickson MD Age/Sex: 72/F [facility] Status: Signed Assessment AND Plan 1. Pleural effusion, transudate J94.8 Plan Patient with recent thoracentesis and removal of 1 L of transudate of fluid. Patient is thought to have significant mitral valve disorder. This will be evaluated by patient's primary butadiene converter helper on October 17. Patient is open to [...] daily. Plan Detail Follow Up 3 Months ([facility] HPI 3 M FU: Chief Complaint: Shortness of breath on exertion Details: Patient is a 72-year-old female, currently in the care of Dr. Stanton, who presents for follow-up secondary to shortness of breath on exertion. 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 [place], [place], [address] BASIC METABOLIC Collected: 10/03/2017 Status: F Source: [place] PROFILE (BMP) 9:11 AM [facility] REPOSITORY Order Comment: Order Date: 09/26/17 Order [...] Performed By: #### L100.0100, L500.2500, L503.6550 #### [facility] [address] [place], [address] FERRITIN Collected: 10/03/2017 Status: F Source: [place] 9:11 AM [facility] REPOSITORY Order Comment: Order Date: 09/26/17 Order Info: 0667-1 - BMP Order Info: 2276-4 - [place] TYPE CODE TESTS RESULT OUT OF RANGE REFERENCE UNITS LAB L503.6550 8-252 ng/mL Normal FERRITIN 43 Performed By: #### L100.0100, L500.2500, L503.6550 #### [facility] [address] [place], [address] CHEST PA AND LATERAL Observed: 10/03/2017 Status: F Source: [place] 9:11 AM [facility] REPOSITORY [facility] Imaging Services [address] [address] Chest PA and Lateral MR#: [id number] Acct: [id number] Name: DEDRA LARA Rep #: [id number] : 1945 F 72 From: Saud Brown MD PCP: Guillermina Stanton MD Status: REG CLI Study: Chest PA and Lateral Date of Exam: 10/03/17 Exam# [id number] Ordering Dr: Corbin Montgomery DO STUDY: X-RAY [...] CC: Corbin Montgomery DO; Guillermina Stanton MD Food Service Manager: Signed 6 MINUTE WALK TEST Observed: 10/01/2017 Status: F Source: [place] 8:46 AM [facility] REPOSITORY [facility] Pulmonary Services/Neurology [address] [place] [address] MR#: [id number] Acct: [id number] Name: DEDRA LARA Rep #: [id number] : 1945 72 From: Angus Erickson MD Referring Dr: Angus Erickson MD Date: Ordering Dr: Sex: F C Location: PSN PSN 6 Minute Walk Test - 6 Minute Walk Test 6 Minute Walk Test: 6 Minute Walk Test PSN:6-Minute Walk Test Start: 10/01/17 06:22 Freq: Status: Active Protocol: RESP.6MINW Document 09/30/17 12:30 SFENTON (Rec: 10/01/17 07:53 SFENTON [id number]) 6 Minute Walk Test Date Performed 10/01/17 [...] CC: Date Dictated: 10/01/17844 Date Transcribed: 10/01/17844 Food Service Manager: Angus Erickson Signed PULMONARY FUNCTION Observed: 09/28/2017 Status: F Source: [place] TEST 7:41 AM [facility] REPOSITORY [facility] Pulmonary Services/Neurology [address] [place] [address] MR#: [id number] Acct: [id number] Name: DEDRA LARA Rep #: [id number] : 1945 72 From: Ranulfo Balderas DO Referring Dr: Angus Erickson MD Status: REG CLI Ordering Dr: Date: Location: [facility] Sex: F C INTRODUCTION: The patient is [...] MD Date Dictated: 09/28/17738 Date Transcribed: 09/28/17738 Food Service Manager: DB Signed 12 LEAD ELECTROCARDIOGRAM Observed: 09/19/2017 Status: F Source: [place] 1:22 PM [facility] REPOSITORY [facility] Cardiovascular Services [address] [place] [address] 12 Lead EKG 09/16/17 1345 MR#: [id number] Acct: [id number] Name: DEDRA LARA Rep #: [id number] : 1945 72 From: Richard Sprague MD Attending Dr: Corbin Montgomery DO Status: DIS IN Ordering Dr: Corbin Brizuela DO Date: 09/16/17 Location: [facility] Sex: F C Admitted: 09/17/17 Test Reason : SOB Blood Pressure : / mmHG Vent. Rate : 062 BPM Atrial Rate : 062 BPM P-R Int : 180 ms QRS Dur : 092 ms QT Int : 434 ms P-R-T Axes : 064 027 010 degrees QTc Int : 440 ms Normal sinus rhythm Poor R wave progression Confirmed by NIRMAL DONALDSON, RICHARD ([id number]), medical transcription editor NEFTALY STANTON ([id number]) on 09/19/2017 1:22:19 PM Referred By: RENNY/TIAN Confirmed By:RICHARD SPRAGUE MD 09/19/17 1322 Date Richard Sprague MD CC: Corbin Montgomery DO; Corbin Brizuela DO; Guillermina Stanton MD Signed BEDSIDE GLUCOSE Collected: 09/18/2017 Status: F Source: [place] 5:15 PM [facility] REPOSITORY TYPE CODE TESTS RESULT OUT OF REFERENCE UNITS RANGE LAB L501.080 70-110 mg/dL High BEDSIDE GLU 233 Result Comment: MANAGEMENT OF PATIENT CARE PER NURSING PROTOCOL Performed By: #### L501.080 #### [facility] Point of Care [address] [facility] 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 Moderately large right pleural effusion with associated consolidation/atelectasis of the right lung base. Nonspecific peripheral left lower lobe nodule. Subcentimeter mediastinal nodes. Additional abdominal findings as noted. Electronically Signed: Yg Cárdenas DO at 18:16 EDT Tel [phone], Service support , Thoracentesis Ultrasound 09/18/17 08:49 IMPRESSION: Ultrasound-guided right thoracentesis. Electronically Signed: Edilson Vaughn MD at 13:23 EDT Tel [phone], Service support , Chest X-Ray 09/18/17 11:39 IMPRESSION: Status post right thoracentesis. There is no evidence of pneumothorax. Electronically Signed: Edilson Vaughn MD at 12:39 EDT Tel [phone], Service support , Angus Erickson MD. Operations: [...] applicable Code Visit Inpatient E AND M: 67347 Disch Hosp 09/18/17 1713 <Electronically signed by Corbin Montgomery DO> Date Corbin Montgomery DO Cosigner Signature (if applicable): Date CC: Angus Erickson MD; Flex Hearn MD; Corbin Montgomery DO; Guillermina Stanton MD Signed DISCHARGE INSTRUCTION Observed: 09/18/2017 Status: F Source: [place] 5:08 PM [facility] REPOSITORY [facility] Medical Records Department [address] [place] [address] Instructions for Home/Discharge Instructions 09/18/17 1706 MR#: [id number] Acct: [id number] Name: DEDRA LARA Rep #: [id number] : 1945 72 From: Corbin Montgomery DO [...] 09/18/2017 Status: F Source: [place] 12:31 PM [facility] REPOSITORY TYPE CODE TESTS RESULT OUT OF RANGE REFERENCE UNITS LAB L501.080 70-110 mg/dL Normal BEDSIDE GLU 107 Result Comment: MANAGEMENT OF PATIENT CARE PER NURSING PROTOCOL Performed By: #### L501.080 #### [facility] Point of Care [address] [facility] [place] [address] CYTOLOGY, BODY FLUID / Collected: 09/18/2017 Status: F Source: [place] CSF 11:52 AM [facility] REPOSITORY Order Comment: DONE TYPE CODE TESTS RESULT OUT OF RANGE REFERENCE UNITS LAB L350.1000 SEE Normal PATHOLOGY CYTOLOGY,BF REPORT /CSF Result Comment: Specimen submitted to Anatomical Pathology Department for testing. Performed By: #### L350.1000 #### [facility] [address] [place], [address] CHEST INSP/EXP 2 VIEW Observed: 09/18/2017 Status: F Source: [place] 11:39 AM [facility] REPOSITORY [facility] Imaging Services [address] [place] [address] Chest Insp/Exp 2 View MR#: [id number] Acct: [id number] Name: DEDRA LARA Rep #: [id number] : 1945 F 72 From: Edilson Vaughn MD PCP: Guillermina Stanton MD Status: ADM IN Study: Chest Insp/Exp 2 View Date of Exam: 09/18/17 Exam# [id number] Ordering Dr: Edilson Vaughn MD STUDY: X-RAY [...] Edilson Vaughn MD at 12:39 EDT Tel [phone], Service support , CC: Edilson Vaughn MD; Guillermina Stanton MD Food Service Manager: Signed BODY FLUID CELL Collected: 09/18/2017 Status: C Source: [place] COUNT+DIFF 11:30 AM [facility] REPOSITORY Order Comment: The reference range and [...] malignant cells. Please refer to cytology report ([id number]). David Hodge M.D. 09/20/17 AMENDED REPORT 09/20/17 [...] 2 Normal Performed By: #### L200.0200 #### [facility] [address] [facility] [address] [place], [place], [address] Observed: 09/18/2017 Status: F Source: [place] CULTURE, BODY FLUID 11:30 AM [facility] REPOSITORY Gram Stain Gram Stain No White Blood Cells No organisms seen Body Fluid Cult Culture exhibits no growth. Cult, Anaerobic No anaerobic bacteria isolated. Performed By: #### M100.1300 #### [facility] [address] [facility] [place], [address] TYPE AND SCREEN Collected: 09/18/2017 Status: F Source: [place] 9:08 AM [facility] REPOSITORY Order Comment: CMV NEG? N Number [...] NEGATIVE Screen Performed By: #### B101.7450 #### [facility] [address] [place], [address] RC Collected: 09/18/2017 Status: F Source: [place] 9:08 AM [facility] REPOSITORY TYPE CODE TESTS RESULT OUT OF REFERENCE UNITS RANGE LAB U100.0000 [id number] TRANSFUSED PRODUCT: T AND S with Crossmatch, Red Cells COUNT: 1 Performed By: #### U100.0000 #### [facility] - refer to report for specific site BEDSIDE GLUCOSE Collected: 09/18/2017 Status: F Source: [place] 6:00 AM [facility] REPOSITORY TYPE CODE TESTS RESULT OUT OF RANGE REFERENCE UNITS LAB L501.080 70-110 mg/dL Normal BEDSIDE GLU 107 Result Comment: MANAGEMENT OF PATIENT CARE PER NURSING PROTOCOL Performed By: #### L501.080 #### [facility] Point of Care [address] [place] [address] CBC W/DIFF, AUTOMATED Collected: 09/18/2017 Status: F Source: [place] 5:20 AM [facility] REPOSITORY TYPE CODE TESTS RESULT OUT OF [...] Lymph 1.54 Performed By: #### L100.0100 #### [facility] [address] [place], [place], [address] BASIC METABOLIC Collected: 09/18/2017 Status: F Source: [place] PROFILE (BMP) 5:20 AM [facility] REPOSITORY TYPE CODE TESTS RESULT OUT OF [...] GAP 10 Performed By: #### L500.2500 #### [facility] [address] [place], [address] FLUID/WASHING Observed: 09/18/2017 Status: F Source: [place] 12:00 AM [facility] REPOSITORY Patient: DEDRA LARA : 1945 (72/F) Acct Num: [id number] Phys: Corbin Montgomery DO Unit Num: [id number] Loc: MS3 ET321-3 Specimen: [id number] Received: 09/18/17 - 1352 Spec Type: Fluid TISSUES TISSUES: THORACIC FLUID CYTOLOGY GROSS Received is 70 ml of yellow cloudy fluid labeled with the patient's name and and designated per the requisition as thoracentesis. Submitted for cytology preparation including cell block. / 09/18/17 TC:5 CPT: 64360, 31988 CYTOLOGY STUDY Slides are reviewed. The specimen consists of macrophages, mesothelial cells, inflammatory cells and red blood cells. DIAGNOSIS CYTOLOGY Thoracentesis fluid for cytology (cytospin and cell block): Negative for malignant cells. SJ:chris 09/19/17 HEADER OPERATION: Ultrasound-guided right thoracentesis PRE-OP DIAGNOSIS: Short of breath, dyspnea TISSUE SUBMITTED: Thoracentesis fluid for cytology Signed David Hodge 09/19/17 <signature on file> Performed By: #### PFLU #### [facility] [address] [facility] [place], [address] BEDSIDE GLUCOSE Collected: 09/17/2017 Status: F Source: [place] 10:26 PM [facility] REPOSITORY TYPE CODE TESTS RESULT OUT OF REFERENCE UNITS RANGE LAB L501.080 70-110 mg/dL High BEDSIDE GLU 166 Result Comment: MANAGEMENT OF PATIENT CARE PER NURSING PROTOCOL Performed By: #### L501.080 #### [facility] Point of Care [address] [place] [address] ECHOCARDIOGRAM COMPLETE Observed: 09/17/2017 Status: F Source: [place] 3:45 PM [facility] REPOSITORY [facility] Cardiovascular Services [address] [place] [address] Echo Complete 09/17/17 0824 MR#: [id number] Acct: [id number] Name: DEDRA LARA Rep #: [id number] : 1945 72 From: Richard Sprague MD [...] 09/17/17 1545 Date Richard Sprague MD CC: PARTY DEMONSTRATOR-Ricardo Osuna; Corbin Montgomery DO; Guillermina Stanton MD Date Dictated: 09/17/17 0824 Date Transcribed: 09/17/17 1545 Food Service Manager: Signed BEDSIDE GLUCOSE Collected: 09/17/2017 Status: F Source: [place] 3:32 PM [facility] REPOSITORY TYPE CODE TESTS RESULT OUT OF REFERENCE UNITS RANGE LAB L501.080 70-110 mg/dL High BEDSIDE GLU 194 Result Comment: MANAGEMENT OF PATIENT CARE PER NURSING PROTOCOL Performed By: #### L501.080 #### [facility] Point of Care [address] [place], [place] [address] GLUCOSE, BODY FLUID Collected: 09/17/2017 Status: F Source: [place] 11:52 AM [facility] REPOSITORY TYPE CODE TESTS RESULT OUT OF RANGE REFERENCE UNITS LAB L503.0100 40-70 mg/dL High GLU,BF 113 Performed By: #### L503.0100, L503.0300, L504.0250 #### [facility] [address] [place], [address] PROTEIN, BODY FLUID Collected: 09/17/2017 Status: F Source: [place] 11:52 AM [facility] REPOSITORY TYPE CODE TESTS RESULT OUT OF RANGE REFERENCE UNITS LAB L503.0300 Not Establ. g/dL Normal 1.3 PROTEIN,BF Performed By: #### L503.0100, L503.0300, L504.0250 #### [facility] [address] [place], [address] LDH,BODY FLUID Collected: 09/17/2017 Status: F Source: [place] 11:52 AM [facility] REPOSITORY TYPE CODE TESTS RESULT OUT OF RANGE REFERENCE UNITS LAB L504.0250 Not Establ. Units/l Normal LDH,BF 52 Performed By: #### L503.0100, L503.0300, L504.0250 #### [facility] [address] [place], [address] CONSULTATION Observed: 09/17/2017 Status: F Source: [place] 11:46 AM [facility] REPOSITORY [facility] Medical Records Department [address] [place] [address] Consultation 09/17/17 0847 MR#: [id number] Acct: [id number] Name: DEDRA LARA Rep #: [id number] : 1945 72 From: Marti Chisholm PARTY DEMONSTRATOR-C PCP: Guillermina Stanton MD Status: ADM KEVEN Y Location: AL3 MX133-1 ADDENDUM by Angus Erickson MD on 09/17/17 at 1146 Code Visit Patient seen and examined independently in conjunction with nurse practitioner. All data, including note below, was personally reviewed and I agree with the added comments. In brief, patient is well-known to me from outpatient office and presented to [facility] emergency department on 09/16/2017 with complaints [...] completion of thoracentesis. 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 Moderately large right pleural effusion with associated consolidation/atelectasis of the right lung base. Nonspecific peripheral left lower lobe nodule. Subcentimeter mediastinal nodes. Additional abdominal findings as noted. Electronically Signed: Yg Cárdenas DO at 18:16 EDT Tel [phone], Service support , - Physical Exam General: [...] or concerns. This note was generated with Wellsphereation software. It may contain incorrect words, spelling, and punctuation that were not noted in checking the note before signing. 09/17/17 0948 <Electronically signed by Marti LANGSTON> Date Marti LANGSTON Cosigner Signature (if applicable): Date CC: Angus Erickson MD; Guillermina Stanton MD Signed BEDSIDE GLUCOSE Collected: 09/17/2017 Status: F Source: [place] 10:57 AM [facility] REPOSITORY TYPE CODE TESTS RESULT OUT OF REFERENCE UNITS RANGE LAB L501.080 70-110 mg/dL High BEDSIDE GLU 170 Result Comment: MANAGEMENT OF PATIENT CARE PER NURSING PROTOCOL Performed By: #### L501.080 #### [facility] Point of Care [address] [address] VENOUS DUPLEX LOWER Observed: 09/17/2017 Status: F Source: [place] EXTREMITY 10:28 AM [facility] REPOSITORY [facility] Cardiovascular Services [address] [place] [address] Venous Duplex US - Edouard Extrem 09/17/17 0856 MR#: [id number] Acct: [id number] Name: DEDRA LARA Rep #: [id number] : 1945 72 From: Marvin Rothman MD [...] Dictated: 09/17/17 0856 Date Transcribed: 09/17/17 1028 Food Service Manager: Signed THORACENTESIS W US Observed: 09/17/2017 Status: F Source: [place] 8:51 AM [facility] REPOSITORY [facility] Imaging Services [address] [place] [address] Thoracentesis W US MR#: [id number] Acct: [id number] Name: DEDRA LARA Rep #: [id number] : 1945 F 72 From: Edilson Vaughn MD PCP: Guillermina Stanton MD Status: ADM IN Study: Thoracentesis W US Date of Exam: 09/18/17 Exam# [id number] Ordering Dr: Marti Chisholm NP-Ricardo PROCEDURE: ULTRASOUND [...] local anesthesia. Under ultrasound guidance, a 6 Algerian thoracentesis needle/catheter system was advanced into the [...] Edilson Vaughn MD at 13:23 EDT Tel [phone], Service support , CC: Marti Chisholm PARTY DEMONSTRATOR; Guillermina Stanton MD Food Service Manager: Signed BEDSIDE GLUCOSE Collected: 09/17/2017 Status: F Source: [place] 6:55 AM [facility] REPOSITORY TYPE CODE TESTS RESULT OUT OF REFERENCE UNITS RANGE LAB L501.080 70-110 mg/dL High BEDSIDE GLU 156 Result Comment: MANAGEMENT OF PATIENT CARE PER NURSING PROTOCOL Performed By: #### L501.080 #### [facility] Point of Care [address] [facility] [place] [address] PROTHROMBIN TIME W/INR Collected: 09/17/2017 Status: F Source: [place] 6:44 AM [facility] REPOSITORY TYPE CODE TESTS RESULT OUT OF RANGE REFERENCE UNITS LAB L300.4150 11.7-14.9 SECONDS High PROTIME 15.2 LAB L300.4200 Normal INR 1.2 Performed By: #### L300.3900, L300.4310 #### [facility] [address] [place], [address] PARTIAL THROMBOPLAST Collected: 09/17/2017 Status: F Source: [place] TIME 6:44 AM [facility] REPOSITORY TYPE CODE TESTS RESULT OUT OF RANGE REFERENCE UNITS LAB L300.4310 24.1-36.2 Seconds Normal PTT 32.2 Performed By: #### L300.3900, L300.4310 #### [facility] [address] [place], [address] CBC W/DIFF, AUTOMATED Collected: 09/17/2017 Status: F Source: [place] 5:55 AM [facility] REPOSITORY TYPE CODE TESTS RESULT OUT OF [...] Lymph 1.35 Performed By: #### L100.0100 #### [facility] [address] [place], [place], [address] BASIC METABOLIC Collected: 09/17/2017 Status: F Source: [place] PROFILE ([facility]) 5:55 AM [facility] REPOSITORY TYPE CODE TESTS RESULT OUT OF [...] Performed By: #### L500.2500, L501.5200, L501.9520 #### [facility] [address] [facility] [place], [place], [address] MAGNESIUM Collected: 09/17/2017 Status: F Source: [place] 5:55 AM [facility] REPOSITORY TYPE CODE TESTS RESULT OUT OF RANGE REFERENCE UNITS LAB L501.5200 1.6-2.6 mg/dL Normal MG 2.0 Performed By: #### L500.2500, L501.5200, L501.9520 #### [facility] [address] [facility] [address] [place], [place], [address] THYROID STIM HORMONE Collected: 09/17/2017 Status: F Source: [place] (TSH) 5:55 AM [facility] REPOSITORY TYPE CODE TESTS RESULT OUT OF RANGE REFERENCE UNITS LAB L501.9520 0.358-3.74 uIU/mL Normal TSH 1.37 Performed By: #### L500.2500, L501.5200, L501.9520 #### [facility] [address] [facility] [place], [place], [address] PROTEIN, TOTAL Collected: 09/17/2017 Status: F Source: [place] 5:55 AM [facility] REPOSITORY TYPE CODE TESTS RESULT OUT OF RANGE REFERENCE UNITS LAB L501.1500 6.4-8.2 g/dL Normal T PROT 6.8 LAB L501.1950 2.2-4.2 g/dL Normal GLOB 4.1 LAB L501.2000 0.9-2.4 RATIO Low A/G 0.7 Performed By: #### L001.0705, L504.2610 #### [facility] [address] [place], [address] LDH Collected: 09/17/2017 Status: F Source: [place] 5:55 AM [facility] REPOSITORY TYPE CODE TESTS RESULT OUT OF RANGE REFERENCE UNITS LAB L504.2610 84-246 U/L High LDH 270 Performed By: #### L001.0705, L504.2610 #### [facility] [address] [place], [address] STREP Observed: 09/17/2017 Status: F Source: [place] PNEUMONIAE ANTIG(UR,CSF) 3:06 AM [facility] REPOSITORY S pneumo Ag URINE INTERPRETATION Negative Urine Presumptive negative for pneumococcal pneumonia, suggesting no current or recent pneumococcal infection. Infection due to S pneumoniae cannot be ruled out since the antigen present in the sample may be below the detection limit of the test. Strep pneumo Test Negative URINE (See interpretation below) Performed By: #### M300.4600 #### [facility] [place] [address] [place], [address] Observed: 09/17/2017 Status: F Source: [place] LEGIONELLA ANTIGEN 3:06 AM [facility] URINE REPOSITORY Specimen Source: URINE, CLEAN CATCH Legionella, UR Legionella Antigen result interpretation: Negative Presumptive negative for Legionella pneumophila serogroup 1 antigen in urine, suggesting no recent or current infection. Legionella Ag, Urine Negative (See interpretation below) Performed By: #### M300.4500 #### [facility] [place], [address] Observed: 09/16/2017 Status: F Source: [place] STOOL OCCULT BLOOD 10:04 PM [facility] IFOB REPOSITORY STOB iFOB Occult Blood Positive ORGANISM 1: OCCULT BLOOD POSITIVE Performed By: #### M100.7900 #### [facility] [address] [place], [address] BEDSIDE GLUCOSE Collected: 09/16/2017 Status: F Source: [place] 10:03 PM [facility] REPOSITORY TYPE CODE TESTS RESULT OUT OF REFERENCE UNITS RANGE LAB L501.080 70-110 mg/dL High BEDSIDE GLU 120 Result Comment: MANAGEMENT OF PATIENT CARE PER NURSING PROTOCOL Performed By: #### L501.080 #### [facility] Point of Care [address] [place] [address] BEDSIDE GLUCOSE Collected: 09/16/2017 Status: F Source: [place] 7:07 PM [facility] REPOSITORY TYPE CODE TESTS RESULT OUT OF REFERENCE UNITS RANGE LAB L501.080 70-110 mg/dL Low BEDSIDE GLU 68 Result Comment: MANAGEMENT OF PATIENT CARE PER NURSING PROTOCOL Performed By: #### L501.080 #### [facility] Point of Care [address] [place] [address] HISTORY AND PHYSICAL Observed: 09/16/2017 Status: F Source: [place] EXAM 6:11 PM [facility] REPOSITORY [facility] Medical Records Department [address] [place] [address] History and Physical 09/16/17 1642 MR#: [id number] Acct: [id number] Name: DEDRA LARA Rep #: [id number] : 1945 72 From: Vanessa MARCUSC PCP: Guillermina Stanton MD Status: ADM KEVEN Y Location: [place] [address]-1 <Vanessa Osuna - Last Filed: 09/16/17 17:45> [...] Status: Chronic (7) 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 [...] diabetes mellitus, history of TIA, hypertension, hyperlipidemia, 52-vsmt-ymad smoking history, obstructive sleep apnea, chronic pleural [...] pulmonary hypertension (Chronic) 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 Paternal Family History: Family History (Last Reviewed 09/16/17 @ 17:04 by KIAN Baer) Father CAD (coronary artery disease) Diabetes Hypertension History Items: Diabetes, Heart Disease - Father w/ VA, age 62., Hypertension Review of Systems Constitutional: [...] echocardiogram. 2. Chronic kidney disease suspected stage OK-PIR-qxhvyj admission with creatinine 1.1. Creatinine on admission [...] lisinopril. 9. Hyperlipidemia-continue statin. 10. Former tobacco eri-78-zbdk-year smoking history. 11. Mitral valve stenosis 12. 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 I have independently interviewed and examined the [...] chills. I have discussed my assessment with PARTY DEMONSTRATORVanessa and orders have been reviewed. Code Visit Inpatient E AND M: 57908 Init Hosp L3 09/16/17 1745 <Electronically signed by Vanessa Osuna PARTY DEMONSTRATOR-C> Date Vanessa Osuna PARTY DEMONSTRATOR-C 09/16/17 1811<Electronically signed by Anthony Martinez MD> Cosigner Signature: Date (if applicable) Anthony Martinez MD CC: PARTY DEMONSTRATOR-C Vanessa Ousna; Guillermina Stanton MD; Anthony Martinez MD Signed CTA CHEST W/WO Observed: 09/16/2017 Status: F Source: [place] CONTRAST 5:38 PM [facility] REPOSITORY [facility] Imaging Services [address] [place] [address] CTA Chest W/WO Contrast MR#: [id number] Acct: [id number] Name: MARCODEDRA L Rep #: [id number] : 1945 F 72 From: Yg Cárdenas DO PCP: Guillermina Stanton MD Status: ADM KEVEN Study: CTA Chest W/WO Contrast Date of Exam: 09/16/17 Exam# [id number] Ordering Dr: Vanessa Osuna PARTY DEMONSTRATOR-C STUDY: CTA CHEST REASON FOR EXAM: Female, [...] Yg Cárdenas DO at 18:16 EDT Tel [phone], Service support , CC: KIAN Osuna; Guillermina Stanton MD Food Service Manager: Signed EMERGENCY DEPARTMENT Observed: 09/16/2017 Status: F Source: [place] SUMMARY 5:31 PM [facility] REPOSITORY [facility] Medical Records Department [address] [place] [address] Emergency Department Summary 09/16/17 1549 MR#: [id number] Acct: [id number] Name: DEDRA LARA Rep #: [id number] : 1945 72 From: Corbin Brizuela DO [...] exertion, anemia This note was generated with WeHaus dictation software. It may contain incorrect words, spelling, and punctuation that were not noted in review of the chart prior to signing ED Disposition - Plan for ED Patient: Disposition: Acute Care [facility] Chief Complaint: Shortness of Breath Diagnosis: Dyspnea on exertion, Anemia Referrals: Guillermina Stanton MD [Primary Care Provider] - What to do if you have Problems For any increased pain, shortness of breath, bleeding, nausea or vomiting, chest pain, or any unexpected problems, contact your Primary Care Provider. Call [facility] ([phone]) or report to the closest Emergency Room. Call 911 if necessary. 09/16/17 1731 <Electronically signed by Corbin Brizuela DO> Date Corbin Brizuela DO Cosigner Signature (If Indicated): Date CC: Guillermina Stanton MD CHEST PA AND LATERAL Observed: 09/16/2017 Status: F Source: [place] 2:30 PM [facility] REPOSITORY [facility] Imaging Services [address] [place] [address] Chest PA and Lateral MR#: [id number] Acct: [id number] Name: DEDRA LARA Rep #: [id number] : 1945 F 72 From: Edilson Vaughn MD PCP: Guillermina Stanton MD Status: REG ER Study: Chest PA and Lateral Date of Exam: 09/16/17 Exam# [id number] Ordering Dr: Corbin Brizuela DO STUDY: X-RAY [...] Edilson Vaughn MD at 15:11 EDT Tel [phone], Service support , CC: Corbin Brizuela DO; Guillermina Stanton MD Food Service Manager: Signed CBC W/DIFF, AUTOMATED Collected: 09/16/2017 Status: F Source: [place] 1:58 PM [facility] REPOSITORY TYPE CODE TESTS RESULT OUT OF [...] Lymph 1.27 Performed By: #### L100.0100 #### [facility] [address] [place], [place], [address] COMPREHENSIVE METABOLIC Collected: 09/16/2017 Status: F Source: [facility] 1:58 PM [facility] REPOSITORY TYPE CODE TESTS RESULT OUT OF [...] 9 Performed By: #### L500.4050, L501.4010 #### [facility] [address] [place], [address] TROPONIN-I Collected: 09/16/2017 Status: F Source: [place] 1:58 PM [facility] REPOSITORY TYPE CODE TESTS RESULT OUT OF RANGE REFERENCE UNITS LAB L501.4010 <0.045 ng/mL Normal < 0.015 TROPONIN-I Result Comment: TROPONIN-I EXPECTED VALUES <0.045 Negative 0.045 - 0.590 Consistent with Cardiac Damage > OR = 0.600 Critical Value Not every elevated troponin is indicative of VA. These values should be used with clinical judgement in examining the patient's clinical picture for diagnosis. To establish a diagnosis of VA versus myocardial injury, there must be a demonstrated rise and/or fall in the troponin values, in addition to ischemic symptoms, EKG changes, new regional wall motion abnormality, and/or angiographical evidence. PLEASE NOTE: REFERENCE RANGES EDITED 17 Performed By: #### L500.4050, L501.4010 #### [facility] [address] [place], [place], [address] D-DIMER QUANTITATIVE Collected: 09/16/2017 Status: F Source: [place] (DVT/PE) 1:58 PM [facility] REPOSITORY TYPE CODE TESTS RESULT OUT OF RANGE REFERENCE UNITS LAB L300.8000 0.27-0.49 FEU/ug/m High alert D-DIMER 2.83 QUANT Result Comment: D-Dimer ELEVATED (>0.49): Additional studies and clinical assessments are indicated to conclude diagnosis of: Deep Vein Thrombosis (DVT) or Pulmonary Embolism (PE) CRITICAL VALUE VERIFIED. CALLED TO JONEL COYLE 09/16/17 Marlene Kirkpatrick. RESULTS READ BACK BY SAME. Performed By: #### L300.8000 #### [facility] [address] [place], [place], [address] BNP,B-TYPE NATRIURETIC Collected: 09/16/2017 Status: F Source: [place] PEPTIDE 1:58 PM [facility] REPOSITORY TYPE CODE TESTS RESULT OUT OF RANGE REFERENCE UNITS LAB L503.6620 0-100 pg/mL High B-TYPE 244.3 PAOLO PEP Performed By: #### L503.6620 #### [facility] [address] [place], [address] IRON+IRON BINDING Collected: 09/16/2017 Status: F Source: [place]ACITY 1:58 PM [facility] REPOSITORY TYPE CODE TESTS RESULT OUT OF RANGE REFERENCE UNITS LAB L503.6075 250-450 ug/dL TIBC Normal 437 LAB L503.6150 50-170 ug/dL IRON Normal 83 LAB L503.6250 15.0-55.0 % IRON Normal SATURATION 19.0 Performed By: #### L503.6030, L503.6550 #### [facility] [address] [place], [place], [address] FERRITIN Collected: 09/16/2017 Status: F Source: [place] 1:58 PM [facility] REPOSITORY TYPE CODE TESTS RESULT OUT OF RANGE REFERENCE UNITS LAB L503.6550 8-252 ng/mL Normal FERRITIN 15 Performed By: #### L503.6030, L503.6550 #### [facility] [address] [place], [address] SR-CTA CHEST W/WO Observed: 09/16/2017 Status: F Source: [place]ORT 12:00 AM [facility] REPOSITORY Images were obtained outside of [facility] [id number] CARDIOLOGY VISIT Observed: 07/15/2017 Status: F Source: [place] REPORT 11:34 AM [facility] REPOSITORY [facility] [address] [place] [address] OFFICE VISIT Date of Service: 07/15/17 MR#: [id number] Acct: [id number] Name: DEDRA LARA Rep #: [id number] : 1945 Provider: Flex Hearn MD Age/Sex: 72/F Location: [facility] Status: Signed HPI HPI Chief Complaint: [...] On 10/26/2015 the patient was admitted to [facility] with acute on recurrent visual disturbance [...] 07/15/17 10:30) [facility] Adverse Reaction (Verified 07/15/17 10:30) Rash [...] AND Plan 1. 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 [place] [address] OFFICE VISIT Date of Service: 07/03/17 MR#: [id number] Acct: [id number] Name: DEDRA LARA Rep #: [id number] : 1945 Provider: Angus Erickson MD Age/Sex: 72/F Location: [facility].PMW Status: Signed Assessment AND Plan 1. Moderate [...] heart failure. Patient was recently admitted at [facility] from 06/24/2017 to 06/25/2017 with concerns for congestive heart failure, pleural effusion, coronary nodules and bronchiectasis. Patient was discharged without a thoracentesis. Intake Vital Signs07/03/17 Height 5 ft 1 in 07/03/17 Weight: 97.522 kg Intake Visit Reasons: Chronic asthma DME Vendor: [employer] Accompanied by: Self Allergies doxycycline Allergy (Severe, [...] LEAD ELECTROCARDIOGRAM Observed: 06/30/2017 Status: F Source: [place] 8:58 PM [facility] REPOSITORY [facility] Cardiovascular Services [address] [place] [address] 12 Lead EKG 06/25/17 0542 MR#: [id number] Acct: [id number] Name: DEDRA LARA Rep #: [id number] : 1945 72 From: Flex Hearn MD Attending Dr: Ernst Doran Status: DIS IN Ordering Dr: Ernst Doran MD Date: 06/25/17 Location: [facility] Sex: F C Admitted: 06/24/17 Test [...] IS UNCONFIRMED Confirmed by FLEX HEARN ([id number]), medical transcription editor NEFTALY STANTON ([id number]) on 06/27/2017 3:18:18 PM Referred By: DR DORAN Confirmed By:FLEX HEARN 06/27/17 1518 Date Flex Hearn MD CC: Ernst Doran; Guillermina Stanton MD Signed DISCHARGE SUMMARY Observed: 06/26/2017 Status: F Source: [place] 2:09 PM [facility] REPOSITORY [facility] Medical Records Department [address] [place] [address] Discharge Summary 06/25/17 1618 MR#: [id number] Acct: [id number] Name: DEDRA LARA Rep #: [id number] : 1945 72 From: Ernst Doran MD PCP: Guillermina Stanton MD Status: DIS IN Y Location: [place] [address] Discharge Date and Diagnosis Date of Admission: 06/24/17 Date of Discharge: 06/25/17 - Primary Discharge Diagnosis #1 acute non-ST elevation VA. #2 left lower lung nodules. #3 elevated [...] Edilson Vaughn MD at 10:19 EDT Tel [phone], Service support , Dr. Hearn, cardiology. Dr. [...] found to have acute non- ST elevation VA. Patient was treated for pneumonia as outpatient [...] Rory at discharge?: Yes Done w/ Acute VA measure.: Yes Code Visit Inpatient E AND M: 12594 Disch Hosp 06/26/17 1409 <Electronically signed by Ernst Doran MD> Date Ernst Doran MD Cosigner Signature (if applicable): Date CC: Angus Erickson MD; Flex Hearn MD; Ernst Doran; Guillermina Stanton MD Signed 12 LEAD ELECTROCARDIOGRAM Observed: 06/25/2017 Status: F Source: [place] 3:19 PM [facility] REPOSITORY [facility] Cardiovascular Services [address] [place] [address] 12 Lead EKG 06/24/17 1116 MR#: [id number] Acct: [id number] Name: DEDRA LARA Rep #: [id number] : 1945 72 From: Richard Sprague MD Attending Dr: Ernst Doran Status: DIS IN Ordering Dr: Steffanie Simms MD Date: 06/24/17 Location: [facility] Sex: F C Admitted: 06/24/17 Test Reason : REPEAT Blood Pressure : / mmHG Vent. Rate : 074 BPM Atrial Rate : 074 BPM P-R Int : 164 ms QRS Dur : 086 ms QT Int : 380 ms P-R-T Axes : 064 018 029 degrees QTc Int : 421 ms Normal sinus rhythm Poor R wave progression [place] septal VA, age undetermined, cannot be excluded Confirmed by NIRMAL DONALDSON, RICHARD ([id number]), medical transcription editor NEFTALY STANTON ([id number]) on 06/25/2017 3:18:55 PM Referred By: BRENDAN Confirmed By:RICHARD SPRAGUE MD 06/25/17 7601 Date Richard Sprague MD CC: Steffanie Simms MD; Ernst Stanton MD Signed 12 LEAD ELECTROCARDIOGRAM Observed: 06/25/2017 Status: F Source: [place] 3:18 PM [facility] REPOSITORY [facility] Cardiovascular Services [address] [place] [address] 12 Lead EKG 06/24/17 0824 MR#: [id number] Acct: [id number] Name: DEDRA LARA Gita Rep #: [id number] : 1945 72 From: Richard Sprague MD Attending Dr: Ernst Doran Status: DIS IN Ordering Dr: Steffanie Simms MD Date: 06/24/17 Location: [facility] Sex: F C Admitted: 06/24/17 Test [...] abnormality Poor R wave progression [place] septal VA, age undetermined, cannot be excluded Abnormal ECG Confirmed by NIRMAL DONALDSON, RICHARD ([id number]), medical transcription editor NEFTALY STANTON (56) on 06/25/2017 3:18:09 PM Referred By: BRENDAN Confirmed By:RICHARD SPRAGUE MD 06/25/17 1518 Date Richard Sprague MD CC: Steffanie Simms MD; Ernst Stanton MD Signed DISCHARGE INSTRUCTION Observed: 06/25/2017 Status: F Source: [place] 1:57 PM [facility] REPOSITORY [facility] Medical Records Department [address] [place] [address] Instructions for Home/Discharge Instructions 06/25/17 1355 MR#: [id number] Acct: [id number] Name: DEDRA LARA Gita Rep #: [id number] : 1945 72 From: Ernst Doran MD [...] With: Flex Hearn MD When: SCHEDULED. 06/25/17 1444 <Electronically signed by Ernst Doran MD> Date Ernst Doran MD CC: Angus Erickson MD; Trae Ramos MD; Guillermina Stanton MD CONSULTATION Observed: 06/25/2017 Status: F Source: [place] 11:02 AM [facility] REPOSITORY [facility] Medical Records Department [address] [place] [address] Consultation 06/24/17 1627 MR#: [id number] Acct: [id number] Name: DEDRA LARA Rep #: [id number] : 1945 72 From: Trae Ramos MD PCP: Guillermina Stanton MD Status: ADM IN Location: [place] [address] Reason for Consult Date of Consultation: 06/24/17 [...] - Psychiatric History: No pertinent psych hx 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 Paternal History Items: Diabetes, Heart Disease - Father w/ VA, age 62., Hypertension Lives: Alone Smoking Status: [...] Signed CONSULTATION Observed: 06/25/2017 Status: F Source: [place] 10:57 AM [facility] REPOSITORY [facility] Medical Records Department [address] [place] [address] Consultation 06/25/17 0856 MR#: [id number] Acct: [id number] Name: DEDRA LARA Rep #: [id number] : 1945 72 From: Marti Chisholm PARTY DEMONSTRATOR-C PCP: Guillermina Stanton MD Status: ADM IN Y [facility] ADDENDUM by Angus Erickson MD on 06/25/17 [...] secondary to chest pain similar to previous VA. Patient denied any recent fever, chills, nausea [...] regularly scheduled appointment. Inpatient E AND M: 71724 Init Hosp L3 06/25/17 1057 <Electronically signed [...] which helps minimally. 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 No history of TB or asbestos exposure. She does have a 35-jsxv-xort history of smoking, quit 14 years ago. 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 Paternal History Items: Diabetes, Heart Disease - Father w/ VA, age 62., Hypertension Review of Systems Constitutional: [...] Edilson Vaughn MD at 10:19 EDT Tel [phone], Service support , - Physical Exam General: [...] or concerns. This note was generated with [employer] dictation software. It may contain incorrect words, spelling, and punctuation that were not noted in checking the note before signing. 06/25/17 1042 <Electronically signed by Marti LANGSTON> Date Marti Chisholm NP-C Geneter Signature (if applicable): Date CC: Angus Erickson MD; Trae Ramos MD; Guillermina Stanton MD Signed BEDSIDE GLUCOSE Collected: 06/25/2017 Status: F Source: [place] 10:04 AM [facility] REPOSITORY TYPE CODE TESTS RESULT OUT OF RANGE REFERENCE UNITS LAB L501.080 70-110 mg/dL Normal BEDSIDE GLU 83 Result Comment: MANAGEMENT OF PATIENT CARE PER NURSING PROTOCOL Performed By: #### L501.080 #### [facility] Point of Care [address] [place], [place] [address] BEDSIDE GLUCOSE Collected: 06/25/2017 Status: F Source: [place] 6:25 AM [facility] REPOSITORY TYPE CODE TESTS RESULT OUT OF REFERENCE UNITS RANGE LAB L501.080 70-110 mg/dL High BEDSIDE GLU 136 Result Comment: MANAGEMENT OF PATIENT CARE PER NURSING PROTOCOL Performed By: #### L501.080 #### [facility] Point of Care [address] [place] [address] BEDSIDE GLUCOSE Collected: 06/25/2017 Status: F Source: [place] 6:00 AM [facility] REPOSITORY TYPE CODE TESTS RESULT OUT OF RANGE REFERENCE UNITS LAB L501.080 70-110 mg/dL Normal BEDSIDE GLU 78 Result Comment: MANAGEMENT OF PATIENT CARE PER NURSING PROTOCOL Performed By: #### L501.080 #### [facility] Point of Care [address] [place] [address] URINALYSIS, COMPLETE Collected: 06/25/2017 Status: F Source: [place] 3:40 AM [facility] REPOSITORY Order Comment: How was Urine Obtained? [...] URINE SEEN Performed By: #### L400.0001 #### [facility] [address] [place], [address] CBC W/DIFF, AUTOMATED Collected: 06/25/2017 Status: F Source: [place] 2:05 AM [facility] REPOSITORY TYPE CODE TESTS RESULT OUT OF [...] Lymph 1.95 Performed By: #### L100.0100 #### [facility] [address] [place], [address] PROTHROMBIN TIME W/INR Collected: 06/25/2017 Status: F Source: [place] 2:05 AM [facility] REPOSITORY TYPE CODE TESTS RESULT OUT OF RANGE REFERENCE UNITS LAB L300.4150 11.7-14.9 SECONDS High PROTIME 15.0 LAB L300.4200 Normal INR 1.2 Performed By: #### L300.3900, L300.4310 #### [facility] [address] [place], [address] PARTIAL THROMBOPLAST Collected: 06/25/2017 Status: F Source: [place] TIME 2:05 AM [facility] REPOSITORY TYPE CODE TESTS RESULT OUT OF RANGE REFERENCE UNITS LAB L300.4310 24.1-36.2 Seconds Normal PTT 32.7 Performed By: #### L300.3900, L300.4310 #### [facility] [address] [place], [address] BASIC METABOLIC Collected: 06/25/2017 Status: F Source: [place] PROFILE (BMP) 2:05 AM [facility] REPOSITORY TYPE CODE TESTS RESULT OUT OF [...] GAP 6 Performed By: #### L500.2500 #### [facility] [address] [place], [place], [address] TROPONIN-I Collected: 06/25/2017 Status: F Source: [place] 2:05 AM [facility] REPOSITORY Order Comment: 'TROP' Serial specimen #1, #2, #3, or #4: 4 TYPE CODE TESTS RESULT OUT OF RANGE REFERENCE UNITS LAB L501.4010 <0.06 ng/mL High alert 1.48 TROPONIN-I Result Comment: Critical Result(s) Called at: 02:42:41 06/25/2017 by: GEORGIE Sanders TROPONIN-I EXPECTED VALUES <0.05 NEGATIVE 0.06 - 0.59 AT RISK OF VA > OR = 0.60 SUGGEST VA Performed By: #### L501.4010 #### [facility] [address] [place], [address] BEDSIDE GLUCOSE Collected: 06/24/2017 Status: F Source: [place] 9:34 PM [facility] REPOSITORY TYPE CODE TESTS RESULT OUT OF REFERENCE UNITS RANGE LAB L501.080 70-110 mg/dL High BEDSIDE GLU 173 Result Comment: MANAGEMENT OF PATIENT CARE PER NURSING PROTOCOL Performed By: #### L501.080 #### [facility] Point of Care [address] [place] [address] TROPONIN-I Collected: 06/24/2017 Status: F Source: [place] 4:47 PM [facility] REPOSITORY Order Comment: 'TROP' Serial specimen #1, #2, #3, or #4: 3 TYPE CODE TESTS RESULT OUT OF RANGE REFERENCE UNITS LAB L501.4010 <0.06 ng/mL High alert 1.96 TROPONIN-I Result Comment: Critical Result(s) Called at: 17:22:15 06/24/2017 by: Annie VILLARREAL TROPONIN-I EXPECTED VALUES <0.05 NEGATIVE 0.06 - 0.59 AT RISK OF VA > OR = 0.60 SUGGEST VA Performed By: #### L501.4010 #### [facility] [address] [place], [address] BEDSIDE GLUCOSE Collected: 06/24/2017 Status: F Source: [place] 4:15 PM [facility] REPOSITORY TYPE CODE TESTS RESULT OUT OF REFERENCE UNITS RANGE LAB L501.080 70-110 mg/dL High BEDSIDE GLU 216 Result Comment: MANAGEMENT OF PATIENT CARE PER NURSING PROTOCOL Performed By: #### L501.080 #### [facility] Point of Care [address] [place] [address] HISTORY AND PHYSICAL Observed: 06/24/2017 Status: F Source: [place] EXAM 2:14 PM [facility] REPOSITORY [facility] Medical Records Department [address] [place] [address] [place] [address] History and Physical 06/24/17 1310 MR#: [id number] Acct: [id number] Name: DEDRA LARA Rep #: [id number] : 1945 72 From: Ernst Doran MD PCP: Guillermina Stanton MD Status: ADM KEVEN Y Location: [place] [address] ADDENDUM by Ernst Doran on 06/24/17 at 1414 Code Visit Addendum: Assessment and plan: #1 chest pain/non-ST elevation VA: Second troponin came back elevated at 1.22 patient remained without chest pain.. I spoke with Dr. Ramos who will see the patient consultation. 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 Paternal History Items: Diabetes, Heart Disease - Father w/ VA, age 62., Hypertension Review of Systems Constitutional: [...] Edilson Vaughn MD at 10:19 EDT Tel [phone], Service support , Assessment/Plan This is a [...] She had a history of non-ST elevation VA back in August, which is attributed to lesion at the terminal portion of the obtuse marginal branch, no interventions done at that time and medical treatment was recommended. Chest x-ray showed no acute findings. 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 This note was generated with [employer] dictation software. It may contain incorrect words, spelling, and punctuation that were not noted in checking the note before signing. Code Visit Inpatient E AND M: 29505 Init Hosp L3 06/24/17 1345 <Electronically signed by Ernst Doran MD> Date Ernst Doran MD Cosigner Signature: Date (if applicable) CC: Ernst Doran; Guillermina Stanton MD Signed TROPONIN-I Collected: 06/24/2017 Status: F Source: [place] 1:05 PM [facility] REPOSITORY Order Comment: 'TROP' Serial specimen #1, #2, #3, or #4: 2 TYPE CODE TESTS RESULT OUT OF RANGE REFERENCE UNITS LAB L501.4010 <0.06 ng/mL High alert 1.22 TROPONIN-I Result Comment: Critical Result(s) Called at: 13:58:38 06/24/2017 by: RADHA Champion TROPONIN-I EXPECTED VALUES <0.05 NEGATIVE 0.06 - 0.59 AT RISK OF VA > OR = 0.60 SUGGEST VA Performed By: #### L501.4010 #### [facility] [address] [facility] [place], [address] EMERGENCY DEPARTMENT Observed: 06/24/2017 Status: F Source: [place] SUMMARY 11:39 AM [facility] REPOSITORY [facility] Medical Records Department [address] [place] [address] Emergency Department Summary 06/24/17 0828 MR#: [id number] Acct: [id number] Name: DEDRA LARA Rep #: [id number] : 1945 72 From: Steffanie Simms MD [...] Chest pain This note was generated with WeHaus dictation software. It may contain incorrect words, [...] problems, contact your Primary Care Provider. Call [facility] ([phone]) or report to the closest Emergency Room. Call 911 if necessary. 06/24/17 3009 <Electronically signed by Steffanie Simms MD> Date Steffanie Simms MD Cosigner Signature (If Indicated): Date CC: Guillermina Stanton MD CTA CHEST W/WO Observed: 06/24/2017 Status: F Source: [place] CONTRAST 9:16 AM [facility] REPOSITORY [facility] Imaging Services [address] [place] [address] CTA Chest W/WO Contrast MR#: [id number] Acct: [id number] Name: DEDRA LARA Rep #: [id number] : 1945 F 72 From: Edilson Vaughn MD PCP: Guillermina Stanton MD Status: REG ER Study: CTA Chest W/WO Contrast Date of Exam: 06/24/17 Exam# [id number] Ordering Dr: Steffanie Simms MD STUDY: CTA [...] Edilson Vaughn MD at 10:19 EDT Tel [phone], Service support , CC: Steffanie Simms MD; Guillermina Stanton MD Food Service Manager: Signed CBC W/DIFF, AUTOMATED Collected: 06/24/2017 Status: F Source: [place] 8:30 AM [facility] REPOSITORY TYPE CODE TESTS RESULT OUT OF [...] Lymph 2.96 Performed By: #### L100.0100 #### [facility] [address] [facility] [address] [place], [place], [address] D-DIMER QUANTITATIVE Collected: 06/24/2017 Status: F Source: [place] (DVT/PE) 8:30 AM [facility] REPOSITORY TYPE CODE TESTS RESULT OUT OF RANGE REFERENCE UNITS LAB L300.8000 0.27-0.49 FEU/ug/m High alert D-DIMER 1.97 QUANT Result Comment: CRITICAL VALUE VERIFIED. [facility] 06/24/17 0901 Deidra Naranjo. RESULTS READ BACK BY [facility] . D-Dimer ELEVATED (>0.49): Additional studies and clinical assessments are indicated to conclude diagnosis of: Deep Vein Thrombosis (DVT) or Pulmonary Embolism (PE) Performed By: #### L300.8000 #### [facility] [address] [facility] [address] [place], [place], [address] BASIC METABOLIC Collected: 06/24/2017 Status: F Source: [place] PROFILE (BMP) 8:30 AM [facility] REPOSITORY Order Comment: 'TROP' Serial specimen #1, [...] 7 Performed By: #### L500.2500, L501.4010 #### [facility] [address] [place], [address] TROPONIN-I Collected: 06/24/2017 Status: F Source: [place] 8:30 AM [facility] REPOSITORY Order Comment: 'TROP' Serial specimen #1, #2, #3, or #4: 1 TYPE CODE TESTS RESULT OUT OF RANGE REFERENCE UNITS LAB L501.4010 <0.06 ng/mL Normal 0.05 TROPONIN-I Result Comment: TROPONIN-I EXPECTED VALUES <0.05 NEGATIVE 0.06 - 0.59 AT RISK OF VA > OR = 0.60 SUGGEST VA Performed By: #### L500.2500, L501.4010 #### [facility] [address] [place], [place], [address] CHEST 1 VIEW Observed: 06/24/2017 Status: F Source: [place] (PORTABLE) 8:28 AM [facility] REPOSITORY [facility] Imaging Services [address] [place] [address] Chest 1 View (Portable) MR#: [id number] Acct: [id number] Name: DEDRA LARA Rep #: [id number] : 1945 F 72 From: Saud Brown MD PCP: Guillermina Stanton MD Status: REG ER Study: Chest 1 View (Portable) Date of Exam: 06/24/17 Exam# [id number] Ordering Dr: Steffanie Simms MD STUDY: X-RAY [...] CC: Steffanie Simms MD; Guillermina Stanton MD Food Service Manager: Signed CHEST PA AND LATERAL Observed: 06/12/2017 Status: F Source: [place] 3:51 PM [facility] REPOSITORY [facility] Imaging Services [address] [place] [address] Chest PA and Lateral MR#: [id number] Acct: [id number] Name: DEDRA LARA Rep #: [id number] : 1945 F 72 From: Demarco Cadet MD PCP: Guillermina Stanton MD Status: REG CLI Study: Chest PA and Lateral Date of Exam: 06/12/17 Exam# [id number] Ordering Dr: Roxi Hernández STUDY: X-RAY CHEST [...] , CC: Roxi Hernández; Guillermina Stanton MD Food Service Manager: Signed ALLERGIES ALLERGIES DATE TYPE / NAME / CODE REACTION SEVERITY SOURCE CODE 01/28/2018 Drug hydrocodone Shortness of Unknown [place] Allergy/41 bitartrate/[id number] breath [facility] 1026608([facility](RXNORM) [facility]) Repository 01/28/2018 Drug oxycodone Rash Unknown [place] Allergy/41 HCl/[id number](RXNOR [facility] 6054272([facility]) Repository 01/28/2018 Drug Penicillins/B4261298 Hives Unknown [place] Allergy/41 76(RXNORM) Community 3187758([facility]) Repository 01/28/2018 Drug indomethacin/E285488 Diarrhea [place] Allergy/41 373(RXNORM) Community 6108323([facility]) Repository 01/28/2018 Drug ketoprofen/A11611059 Diarrhea [place] Allergy/41 4(RXNORM) [facility] 1654861([facility]) Repository 01/28/2018 Drug cephalexin/N32083155 Diarrhea [place] Allergy/41 6(RXNORM) [facility] 2398797([facility]) Repository 01/28/2018 Drug doxycycline/N7174719 Rash SV [place] Allergy/41 48(RXNORM) Community 8536846([facility]) Repository 01/28/2018 Drug sulfamethoxazole/F00 SORE TONGUE [place] Allergy/41 6209819(RXNORM) Community 7051605([facility]) Repository 01/28/2018 Drug nitrofurantoin/F0060 asthma attack [place] Allergy/41 27516(RXNORM) Community 8951334([facility]) Repository 01/28/2018 Drug trimethoprim/G354851 SORE TONGUE MO [place] Allergy/41 873(RXNORM) Community 4915619([facility]) Repository 01/28/2018 Drug azithromycin/N453975 Diarrhea MO [place] Allergy/41 635(RXNORM) Community 0283212([facility]) Repository 01/28/2018 Drug metformin/T657224315 Diarrhea [place] Allergy/41 (RXNORM) Community 6834913([facility]) Repository 01/28/2018 Drug tiotropium/L91009015 difficulty SV [place] Allergy/41 2(RXNORM) breathing Community 3944177([facility]) Repository 11/06/2017 DRUG/05060 OXYCODONE-ACETAMINOP RASH [facility] 1003([facility] Clinic Other D CT) [place] Repository 11/05/2017 DRUG CEPHALEXIN DIARRHEA [facility] INGREDI/41 Clinic Other 6723959([facility] OMED CT) Repository 11/05/2017 DRUG HYDROCODONE SHORTNESS OF [facility] INGREDI/41 BITARTRATE Clinic Other 2589747([facility] OMED CT) Repository 11/05/2017 DRUG INDOMETHACIN DIARRHEA [facility] INGREDI/41 Clinic Other 9214007([facility] OMED CT) Repository 11/05/2017 DRUG KETOPROFEN [place]A [facility] INGREDI/41 Clinic Other 0296097([facility] OMED CT) Repository 11/05/2017 DRUG METFORMIN DIARRHEA [facility] INGREDI/41 Clinic Other 8752312([facility] OMED CT) Repository 11/05/2017 DRUG NITROFURANTOIN SHORTNESS OF [facility] INGREDI/41 Clinic Other 1006648([facility] OMED CT) Repository 11/05/2017 Drug PENICILLINS HIVES [facility] Class/4195 Clinic Other 08631(SNOM [place] ED CT) Repository 11/05/2017 Drug SULFA (SULFONAMIDE OTHER: SEE C [facility] Class/4195 ANTIBIOTICS) Clinic Other 02264(SNOM [place] ED CT) Repository 11/05/2017 DRUG TIOTROPIUM SHORTNESS OF [facility] 7730959( [place] OMED CT) Repository [facility] Other 0919419( [place] OMED CT) Repository NG/2720269 CEPHALEXIN [facility] 06(SNOM[facility]) Repository NG/5736434 DOXYCYCLINE [facility] 06(SNOM[facility]) Repository NG/3874988 HYDROCODONE [facility] 06(SNOMED BITARTRATE [facility]) Repository NG/7226563 INDOMETHACIN [facility] 06(SNOMED [facility]) Repository NG/6830231 KETOPROFEN [facility] 06(SNOMED [facility]) Repository NG/1895429 METFORMIN [facility] 06(SNOMED [facility]) Repository NG/6219474 NITROFURANTOIN [facility] 06(SNOMED [facility]) Repository NG/0147661 PENICILLINS [facility] 06(SNOMED [facility]) Repository NG/[id number] OXYCODONE-ACETAMINOP [facility] 06(SNOMED HEN [facility]) Repository NG/[id number] SULFA (SULFONAMIDE [facility] 06(SNOMED ANTIBIOTICS) [facility] System CT) Repository NG/[id number] TIOTROPIUM [facility] 06(SNOMED [facility]) Repository ENCOUNTERS ENCOUNTERS ADMIT/DISCHARGE ACCOUNT NUMBER ADMITTING ENCOUNTER LOCATION SOURCE CLASS 02/10/2018 [id number] Ambulatory [facility] ding:MTLAB Repository 02/07/2018/02/08/20 [id number] Ambulatory [address] [place] Repository 02/07/2018/02/08/20 [id number] Ambulatory [address] [place] Repository 02/07/2018/02/08/20 [id number] Ambulatory [address] [place] Repository 02/07/2018/02/08/20 [id number] Ambulatory [address] [place] Repository 02/07/2018/02/08/20 [id number] Ambulatory [address] [place] Repository 02/07/2018/02/11/20 [id number] Ambulatory [address] [place] Repository 02/07/2018/02/08/20 [id number] Ambulatory [address] [place] Repository 02/07/2018/02/08/20 [id number] Ambulatory [address] [place] Repository 02/07/2018/02/08/20 [id number] Ambulatory [address] [place] Repository 02/07/2018/02/08/20 [id number] Ambulatory [address] Repository 02/04/2018 [id number] Ambulatory [facility] ding:LAB.FUT Repository URE 01/28/2018/01/29/20 [id number] Ambulatory BMSBuilding: [address] Repository 01/07/2018/01/15/20 [id number] Ambulatory [address] Repository 12/31/2017/01/01/20 [id number] KONG V, Ambulatory [address] Repository 12/31/2017/01/01/20 [id number] JENNIFER Sky, Inpatient AKRON [facility] [address] [place] [address] MEDICAL Repository CENTERBuildi ng:CCLERoom: POOLBed: 02 12/30/2017 [id number] Ambulatory [facility] ding:LAB.FUT Repository URE 12/25/2017/01/18/20 [id number] Ambulatory [address] [place] Repository 12/25/2017/12/26/19 [id number] Ambulatory [address] Repository 12/25/2017/12/26/19 [id number] Ambulatory [address] [place] Repository 12/25/2017/12/26/19 [id number] Ambulatory [address] [place] Repository 12/25/2017/12/26/19 [id number] Ambulatory [address] Repository 12/25/2017/12/26/19 [id number] Ambulatory [address] Repository 11/06/2017/11/07/19 [id number] Ambulatory [address] Other [place] Repository 11/06/2017/11/07/19 [id number] Ambulatory [address] MEDICAL Repository CENTERBuildi ng:AGVASACC 11/05/2017 [id number] Ambulatory [facility] ding:MTLAB Repository 11/01/2017/11/02/19 [id number] Ambulatory BBuilding:[place] [facility] Repository 10/30/2017/10/31/19 [id number] Ambulatory BMSBuilding: [place] 18 [facility] Repository 10/30/2017 [id number] Ambulatory [facility] ding:[facility]S Repository 10/17/2017/10/18/19 [id number] Ambulatory BMSBuilding: [place] 18 [facility] Repository 10/16/2017 [id number] Ambulatory [facility] ding:MTLAB Repository 10/15/2017 [id number] Ambulatory BMSBuilding: [place] BMS.[facility] Repository 10/15/2017 [id number] Ambulatory [facility] ding:MTRAD Repository 10/09/2017/10/10/19 [id number] Ambulatory BMSBuilding: [place] 18 [facility] Repository 10/03/2017 [id number] Ambulatory [facility] ding:RAD.FUT Repository URE 10/01/2017 [id number] Ambulatory BMSBuilding: [facility] Repository 09/30/2017 [id number] Ambulatory [facility] ding:PSN Repository 09/28/2017 [id number] Ambulatory BMSBuilding: [facility] Repository 09/27/2017 [id number] Ambulatory [facility] ding:PSN Repository 09/17/2017/09/19/19 [id number] [facility], Inpatient [place] 18 [facility] ding:GK3Uuht Repository : DZ110Rfw: 1 09/17/2017 [id number] Juan, Ambulatory BMSBuilding: [place] Anthony BMS.[facility] Repository 09/17/2017 [id number] Juan, [facility] 09/17/2017 [id number] Juan, Ambulatory BMSBuilding: [place] Anthony BMS.[facility] Repository 09/17/2017/09/19/19 [id number] Ambulatory BMSBuilding: [place] 18 BMS.[facility] Repository 09/16/2017 [id number] Juan, Ambulatory BMSBuilding: [place] Anthony BMS.[facility] Repository 09/16/2017 [id number] Juan, Ambulatory BMSBuilding: [place] Anthony BMS.[facility] Repository 09/16/2017 [id number] Juan, Ambulatory BMSBuilding: [place] Anthony BMS.[facility] Repository 09/16/2017 [id number] Ambulatory BMSBuilding: [place] [facility] Repository 07/15/2017/07/16/19 [id number] Ambulatory BMSBuilding: [place] 18 [facility] Repository 07/12/2017 [id number] Ambulatory BMSBuilding: [place] BMS.[facility] Repository 07/03/2017/07/04/19 [id number] Ambulatory BMSBuilding: [place] 18 [facility] Repository 06/27/2017 [id number] Ambulatory BMS [facility] Repository 06/24/2017/06/26/19 [id number] Davidelf, Inpatient [place] [facility]:GABRIELLEURoom Repository : [id number]: 1 06/24/2017 [id number] [place]helf[place], Ambulatory BMSBuilding: [place] Ghasem [facility] Repository 06/24/2017 [id number] [place], Ambulatory BMSBuilding: [place] Ghasem BMS.CF.[facility] Repository 06/24/2017 [id number] [place], Ambulatory BMSBuilding: [place] Ghasem BMS.[facility] Repository 06/24/2017/06/26/19 [id number] Ambulatory BMSBuilding: [place] 18 [facility] Repository 06/24/2017 [id number] [place]helfah, Ambulatory BMSBuilding: [place] Ghasem BMS.[facility] Repository 06/24/2017 [id number] Inpatient [place] [facility] ding:ED Repository 06/12/2017 [id number] Ambulatory [place] [facility] ding:MTRAD Repository PAYERS PAYERS ENCOUNTER GUARANTOR PAYER SUBSCRIBER SOURCE 02/10/2018 DEDRA L Primary DEDRA L [place] [id number] HIGH Insurance:MEDICARE ULLERYDOB: [place] PART A BPolicy Number: [id number] Hospital 94272Nbp: (406) [id number] Repository 040 () Date:2018-02-06 02/10/2018 Secondary DEDRA L [place] Insurance:AETNA SR ULLERYDOB: Community SUPPLEMENT [facility] [id number] Hospital Number: Repository [id number] Date:3427-36-20HSELE SENIOR SUPPLEMENT [address] [place] [address]BB: 02/10/2018 Tertiary NOT GIVENUNK [place] Insurance:SELF PAY [facility] Number: Effective Repository Date:2018-02-06 02/04/2018 DEDRA L Primary DEDRA L [place] [id number] HIGH Insurance:MEDICARE ULLERYDOB: [place] PART A BPolicy Number: [id number] Hospital [address]Oyo: ([phone]) [id number] Repository () Date:2018-01-31 02/04/2018 Secondary DEDRA L [place] Insurance:AETNA SR ULLERYDOB: Community [facility] [id number] Hospital Number: Repository [id number] Date:8685-17-92DUHAH SENIOR SUPPLEMENT [address] [place] [address]GD: 02/04/2018 Tertiary NOT GIVENUNK [place] Insurance:SELF PAY [facility] Number: Effective Repository Date:2018-01-31 01/28/2018 DEDRA L Primary DEDRA L [place] [id number] HIGH Insurance:MEDICARE ULLERYDOB: [place] PART A BPolicy Number: [id number] Hospital [address]10[address]Rbg: (198) [id number] Repository [phone] () Date:2017-10-09 01/28/2018 Secondary DEDRA L [place] Insurance:AETNA SR ULLERYDOB: Community SUPPLEMENT INSPolicy [id number] Hospital Number: Repository [id number] Date:2796-49-70FTVYJ SENIOR SUPPLEMENT [address], [place] [address]CU: 01/28/2018 Tertiary NOT GIVENUNK [place] Insurance:SELF PAY [facility] Number: Effective Repository Date:2018-01-21 12/31/2017 DEDRA L Primary DEDRA L [facility] ULLERYDOB: Insurance:MEDICARE A ULLERYDOB: Health System AND BPolicy Number: [id number] [facility] [id number] [place] [address]Cau: Date: () 12/31/2017 Secondary DEDRA L [facility] Insurance:AETNA ULLERYDOB: Health System MEDICARE [id number] Repository SUPPLEMENTPolicy Number: [id number] Date: 12/30/2017 DEDRA L Primary DEDRA L [place] [id number] HIGH Insurance:MEDICARE ULLERYDOB: [place] PART A BPolicy Number: [id number] [facility] [address]Rii: ([phone]) [id number] Repository [phone] () Date:2017-12-19 12/30/2017 Secondary DEDRA L [place] Insurance:AETNA SR ULLERYDOB: Community SUPPLEMENT INSPolicy [id number] Hospital Number: Repository [id number] Date:9260-82-76LSGEV SENIOR SUPPLEMENT [address]RQXC[place]XFB, [place] [address]FE: 12/30/2017 Tertiary NOT GIVENUNK [place] Insurance:SELF PAY [facility] Number: Effective Repository Date:2017-12-19 11/06/2017 DEDRA L Primary DEDRA L [facility] ULLERYDOB: Insurance:MEDICARE A ULLERYDOB: Health System AND BPolicy Number: [id number] [facility] [id number] [address]Qay: Date: (HP) 11/06/2017 Secondary DEDRA L [facility] Insurance:AETNA ULLERYDOB: Health System MEDICARE [id number] Repository SUPPLEMENTPolicy Number: [id number] Date: 11/05/2017 DEDRA L Primary DEDRA L [place] [id number] HIGH Insurance:MEDICARE ULLERYDOB[place] PART A BPolicy Number: [id number] Hospital 225[address]Iku: (098) [id number] Repository [phone] (HP) Date:2017-11-05 11/05/2017 Secondary DEDRA L [place] Insurance:AETNA ULLERYDOB: Community SUPPLEMENT INSPolicy [id number] Hospital Number: Repository [id number] Date:1682-95-99KFQEL SENIOR SUPPLEMENT [address] [place] [address]NY: 11/05/2017 Tertiary NOT GIVENUNK [place] Insurance:SELF PAY Community [facility] Number: Effective Repository Date:2017-11-05 11/01/2017 DEDRA L [facility] ULLERYDOB: Insurance:MEDICARE ULLERYDOB: [facility] PART BPolicy Number: [id number] Repository HIGH [facility], [id number] [place], [place] [address]Etl: Date:2017-10-23 [place] [address]Cgh: 2600-31-27Ixpj (HP) Name:[facility] ()Tel: ([phone]) Ygokcuuoipxvea VPYPE [phone] () [address] [address]Hnfkxolnx, [place] [address]LV: 11/01/2017 Secondary DEDRA [facility] Insurance:AETNA SENIOR ULLERYDOB: [facility] SUPPLEMENTAL ASUPolicy [id number] Repository Number: [facility], [id number] [place] [address]Axo: Date:2017-10-23 - 6600-27-34Adht ()Tel: (072) Name:CPO Li 000-0000 () [address] [place] [address]NA: 10/30/2017 DEDRA L Primary DEDRA L [place] [id number] HIGH Insurance:MEDICARE ULLERYDOB: [place] PART A BPolicy Number: [id number] Hospital 15[address]Umv: (908) [id number] Repository 040 () Date:2017-10-17 10/30/2017 Secondary DEDRA L [place] Insurance:AETNA SR ULLERYDOB: Community SUPPLEMENT INSPolicy [id number] Hospital Number: Repository [id number] Date:2539-38-17ZEBYX SENIOR SUPPLEMENT [address] [place] [address]OF: 10/30/2017 Tertiary NOT GIVENUNK [place] Insurance:SELF PAY [facility] Number: Effective Repository Date:2017-10-30 10/30/2017 DEDRA L Primary DEDRA L [place] [id number] HIGH Insurance:MEDICARE ULLERYDOB: [place] PART A BPolicy Number: [id number] Hospital [address]Fmv: ([phone] [id number] Repository [phone] () Date:2017-10-17 10/30/2017 Secondary DEDRA L [place] Insurance:AETNA SR ULLERYDOB: Community SUPPLEMENT INSPolicy [id number] Hospital Number: Repository [id number] Date:7966-67-09QXCTL SENIOR SUPPLEMENT [address] [place] [address]QD: 10/30/2017 Tertiary NOT GIVENUNK [place] Insurance:SELF PAY [facility] Number: Effective Repository Date:2017-10-17 10/17/2017 DEDRA L Primary DEDRA L [place] [id number] HIGH Insurance:MEDICARE ULLERYDOB: [place] PART A BPolicy Number: [id number] Hospital [address]Rnt: 330 [id number] Repository [phone] () Date:2017-09-23 10/17/2017 Secondary DEDRA L [place] Insurance:AETNA SR ULLERYDOB: Community SUPPLEMENT INSPolicy [id number] Hospital Number: Repository [id number] Date:3831-50-34ADOKL SENIOR SUPPLEMENT [address] [address]FUYRMJYVB, [place] [address]UV: 10/17/2017 Tertiary NOT GIVENUNK [place] Insurance:SELF PAY [facility] Number: Effective Repository Date:2017-10-17 10/16/2017 DEDRA L Primary DEDRA L [place] [id number] HIGH Insurance:MEDICARE ULLERYDOB: [place] PART A BPolicy Number: [id number] Hospital [address]Dfw: 330 [id number] Repository 040 () Date:2017-10-16 10/16/2017 Secondary DEDRA L [place] Insurance:AETNA SR ULLERYDOB: Community SUPPLEMENT INSPolicy [id number] Hospital Number: Repository [id number] Date:7192-94-03GGEMV SENIOR SUPPLEMENT [address]ZEU[address] [place] [address]WB: 10/16/2017 Tertiary NOT GIVENUNK [place] Insurance:SELF PAY [facility] Number: Effective Repository Date:2017-10-16 10/15/2017 DEDRA L Primary DEDRA L [place] [id number] HIGH Insurance:MEDICARE ULLERYDOB: [place] PART A BPolicy Number: [id number] Hospital [address]63[address]Ltv: 330 [id number] Repository [phone] () Date:2017-10-15 10/15/2017 Secondary DEDRA L [place] Insurance:AETNA SR ULLERYDOB: Community SUPPLEMENT INSPolicy [id number] Hospital Number: Repository [id number] Date:6541-47-74MVSNZ SENIOR SUPPLEMENT [address]BSUIOMIYJ, [place] [address]HH: 10/15/2017 Tertiary NOT GIVENUNK [place] Insurance:SELF PAY [facility] Number: Effective Repository Date:2017-10-15 10/15/2017 DEDRA L Primary DEDRA L [place] [id number] HIGH Insurance:MEDICARE ULLERYDOB: [place] PART A BPolicy Number: [id number] Hospital [address]90[address]Aqt: ([phone]) [id number] Repository [phone] () Date:2017-10-15 10/15/2017 Secondary DEDRA L [place] Insurance:AETNA SR ULLERYDOB: Community SUPPLEMENT INSPolicy [id number] Hospital Number: Repository [id number] Date:5927-58-82ORBXF SENIOR SUPPLEMENT [address]MO[address] [place] [address]VV: 10/15/2017 Tertiary NOT GIVENUNK [place] Insurance:SELF PAY [facility] Number: Effective Repository Date:2017-10-15 10/09/2017 DEDRA L Primary DEDRA L [place] [id number] HIGH Insurance:MEDICARE ULLERYDOB: Community [facility] PART A BPolicy Number: [id number] Hospital [address]Lrv: ([phone]) [id number] Repository [phone] () Date:2017-07-03 10/09/2017 Secondary DEDRA L [place] Insurance:AETNA SR ULLERYDOB: Community SUPPLEMENT INSPolicy [id number] Hospital Number: Repository [id number] Date:0535-66-23BOANF SENIOR SUPPLEMENT [address] [place] [address]LR: 10/09/2017 Tertiary NOT GIVENUNK [place] Insurance:SELF PAY [facility] Number: Effective Repository Date:2017-10-02 10/03/2017 DEDRA L Primary DEDRA L [place] [id number] HIGH Insurance:MEDICARE ULLERYDOB: [facility] [place] [place] PART A BPolicy Number: [id number] Hospital 935[address]Vsk: [phone] [id number] Repository [phone] () Date:2017-09-20 10/03/2017 Secondary DEDRA L [place] Insurance:AETNA SR ULLERYDOB: Community SUPPLEMENT INSPolicy [id number] Hospital Number: Repository [id number] Date:6161-78-75OQYNK SENIOR SUPPLEMENT [address]UBZMNB[address] [place] [address]NB: 10/03/2017 Tertiary NOT GIVENUNK [place] Insurance:SELF PAY [facility] Number: Effective Repository Date:2017-09-20 10/01/2017 DEDRA L Primary DEDRA L [place] [id number] HIGH Insurance:MEDICARE ULLERYDOB: [place] PART A BPolicy Number: [id number] Hospital [address]Ljs: (471) [id number] Repository [phone] () Date:2017-07-03 10/01/2017 Secondary DEDRA L [place] Insurance:AETNA SR ULLERYDOB: Community SUPPLEMENT INSPolic [id number] Hospital Number: Repository [id number] Date:3078-94-74CLCDX SENIOR SUPPLEMENT [address] [address]YBNWYVSJQ, [place] [address]XK: 10/01/2017 Tertiary NOT GIVENUNK [place] Insurance:SELF PAY [facility] Number: Effective Repository Date:2017-10-01 09/30/2017 DEDRA L Primary DEDRA L [place] [id number] HIGH Insurance:MEDICARE ULLERYDOB: [place] PART A BPolicy Number: [id number] Hospital [address]Hsg: ([phone]) [id number] Repository [phone] () Date:2017-07-03 09/30/2017 Secondary DEDRA L [place] Insurance:AETNA SR ULLERYDOB: Community SUPPLEMENT INSPolic [id number] Hospital Number: Repository [id number] Date:7030-58-79UULJU SENIOR SUPPLEMENT [address] [address]COMRPXFCJ, [place] [address]GK: 09/30/2017 Tertiary NOT GIVENUNK [place] Insurance:SELF PAY [facility] Number: Effective Repository Date:2017-07-03 09/28/2017 DEDRA L Primary DEDRA L [place] [id number] HIGH Insurance:MEDICARE ULLERYDOB: [place] PART A BPolicy Number: [id number] Hospital 58123Edq: ([phone]) [id number] Repository [phone] () Date:2017-07-03 09/28/2017 Secondary DEDRA L [place] Insurance:AETNA SR ULLERYDOB: Community SUPPLEMENT INSPolic [id number] Hospital Number: Repository [id number] Date:8160-54-07RHJCW SENIOR SUPPLEMENT [address]CC[address] [place] [address]LW: 09/28/2017 Tertiary NOT GIVENUNK [place] Insurance:SELF PAY [facility] Number: Effective Repository Date:2017-09-28 09/27/2017 DEDRA L Primary DEDRA L [place] [id number] HIGH Insurance:MEDICARE ULLERYDOB: [place] PART A BPolicy Number: [id number] Hospital 69997Qig: ([phone]) [id number] Repository [phone] () Date:2017-07-03 09/27/2017 Secondary DEDRA L [place] Insurance:AETNA SR ULLERYDOB: Community SUPPLEMENT INSPolicy [id number] Hospital Number: Repository [id number] Date:2471-61-94WTDQE SENIOR SUPPLEMENT [address]NSVNGDECK[address] [place] [address]NW: 09/27/2017 Tertiary NOT GIVENUNK [place] Insurance:SELF PAY [facility] Number: Effective Repository Date:2017-07-03 09/17/2017 DEDRA L Primary DEDRA L [place] [id number] HIGH Insurance:MEDICARE ULLERYDOB: [place] PART A BPolicy Number: [id number] Hospital 37443Fdc: ([phone]) [id number] Repository [phone] () Date:2017-09-16 09/17/2017 Secondary DEDRA L [place] Insurance:AETNA SR ULLERYDOB: Community SUPPLEMENT INSPolicy [id number] Hospital Number: Repository [id number] Date:1652-99-16MFRUG SENIOR SUPPLEMENT [address]YIWTT[address]YJ[address] [place] [address]CN: 09/17/2017 Tertiary NOT GIVENUNK [place] Insurance:SELF PAY [facility] Number: Effective Repository Date:2017-09-16 09/17/2017 DEDRA L Primary DEDRA L [place] [id number] HIGH Insurance:MEDICARE ULLERYDOB: [place] PART A BPolicy Number: [id number] Hospital 214[address]Iqr: (061) [id number] Repository [phone] () Date:2017-09-16 09/17/2017 Secondary DEDRA L [place] Insurance:AETNA SR ULLERYDOB: Community [facility]MENT [facility] [id number] Hospital Number: Repository [id number] Date:3538-26-68LKMHB SENIOR SUPPLEMENT [address]NCQYZRRPD[address] [place] [address]OM: 09/17/2017 Tertiary NOT GIVENUNK [place] Insurance:SELF PAY [facility] Number: Effective Repository Date:2017-09-17 09/17/2017 DEDRA L Primary DEDRA L [place] [id number] HIGH Insurance:MEDICARE ULLERYDOB: [place] PART A BPolicy Number: [id number] Hospital 09487Xha: ([phone]) [id number] Repository [phone] () Date:2017-09-16 09/17/2017 Secondary DEDRA L [place] Insurance:AETNA SR ULLERYDOB: Community SUPPLEMENT INSPolic [id number] Hospital Number: Repository [id number] Date:1788-06-57QQWIR SENIOR SUPPLEMENT [address]XCQZPABFK[address] [place] [address]KY: 09/17/2017 Tertiary NOT GIVENUNK [place] Insurance:SELF PAY [facility] Number: Effective Repository Date:2017-09-17 09/17/2017 DEDRA L Primary DEDRA L [place] [id number] HIGH Insurance:MEDICARE ULLERYDOB[place] PART A BPolicy Number: [id number] Hospital 59[address]Sir: ([phone]) [id number] Repository [phone] () Date:2017-09-16 09/17/2017 Secondary DEDRA L [place] Insurance:AETNA SR ULLERYDOB: Community SUPPLEMENT INSPolicy [id number] Hospital Number: Repository [id number] Date:1767-00-18QRSJL SENIOR SUPPLEMENT [address]XSUNUYCSK[address] [place] [address]EP: 09/17/2017 Tertiary NOT GIVENUNK [place] Insurance:SELF PAY [facility] Number: Effective Repository Date:2017-09-17 09/17/2017 DEDRA L Primary DEDRA L [place] [id number] HIGH Insurance:MEDICARE ULLERYDOB: [place] PART A BPolicy Number: [id number] Hospital 725[address]Drt: ([phone]) [id number] Repository [phone] () Date:2017-09-16 09/17/2017 Secondary DEDRA L [place] Insurance:AETNA SR ULLERYDOB: Community SUPPLEMENT INSPolicy [id number] Hospital Number: Repository [id number] Date:2176-94-50HEGSQ SENIOR SUPPLEMENT [address] [address]QDKOUBUVA, [place] [address]MQ: 09/17/2017 Tertiary NOT GIVENUNK [place] Insurance:SELF PAY [facility] Number: Effective Repository Date:2017-09-17 09/16/2017 DEDRA L Primary DEDRA L [place] [id number] HIGH Insurance:MEDICARE ULLERYDOB: [place] PART A BPolicy Number: [id number] Hospital 51973Zcf: ([phone]) [id number] Repository [phone] () Date:2017-09-16 09/16/2017 Secondary DEDRA L [place] Insurance:AETNA SR ULLERYDOB: Community SUPPLEMENT INSPolicy [id number] Hospital Number: Repository [id number] Date:3895-69-32HPEEK SENIOR SUPPLEMENT [address] [address]UKWDQCRJK, [place] [address]KI: 09/16/2017 Tertiary NOT GIVENUNK [place] Insurance:SELF PAY [facility] Number: Effective Repository Date:2017-09-16 09/16/2017 DEDRA L Primary DEDRA L [place] [id number] Insurance:MEDICARE ULLERYDOB: [place] A BPolicy Number: [id number] [id number]: ([id number] Repository [phone] () Date:2017-09-16 09/16/2017 Secondary DEDRA L [place] Insurance:AETNA SR ULLERYDOB: Community SUPPLEMENT INSPolicy [id number] [facility] Number: Repository [id number] Date:[id number] SENIOR SUPPLEMENT [address], [place] [address]BO: 09/16/2017 Tertiary NOT GIVENUNK [place] Insurance:SELF PAY [facility] Number: Effective Repository Date:2017-09-16 09/16/2017 DEDRA L Primary DEDRA L Abena [id number] HIGH Insurance:MEDICARE ULLERYDOB[facility] [place] PART A BPolicy Number: [id number] Hospital [address]Hia: [phone] [id number] Repository [phone] () Date:2017-09-16 09/16/2017 Secondary DEDRA L Ab[place] Insurance:AETNA SR ULLERYDOB: Community SUPPLEMENT INSPolic [id number] Hospital Number: Repository [id number] Date:2558-44-34NJBTJ SENIOR SUPPLEMENT [address] [address], [place] [address]BM: 09/16/2017 Tertiary NOT GIVENUNK [place] Insurance:SELF PAY [facility] Number: Effective Repository Date:2017-09-16 09/16/2017 DEDRA L Primary DEDRA L Abena [id number] HIGH Insurance:MEDICARE ULLERYDOB: [place], [place] PART A BPolicy Number: [id number] Hospital [address]Xym: [phone] [id number] Repository [phone] () Date:2017-09-16 09/16/2017 Secondary DEDRA L [place] Insurance:AETNA SR ULLERYDOB: Community SUPPLEMENT INSPolicy [id number] Hospital Number: Repository [id number] Date:9953-22-76YPDPS SENIOR SUPPLEMENT [address] [address], [place] [address]OH: 09/16/2017 Tertiary NOT GIVENUNK [place] Insurance:SELF PAY [facility] Number: Effective Repository Date:2017-09-16 07/15/2017 DEDRA L Primary DEDRA L [place] [id number] HIGH Insurance:MEDICARE ULLERYDOB: [facility] A BPolicy Number: [id number] [address]Pct: [id number] Repository Date:2017-02-19 () 07/15/2017 Secondary DEDRA L [place] Insurance:AETNA SR ULLERYDOB: Community SUPPLEMENT INSPolic [id number] Hospital Number: Repository [id number] Date:4542-65-06RSIHI SENIOR SUPPLEMENT [address] [address], [place] [address]PE: 07/15/2017 Tertiary NOT GIVENUNK [place] Insurance:SELF PAY [facility] Number: Effective Repository Date:2017-02-19 07/12/2017 DEDRA L Primary DEDRA L Abena [id number] HIGH Insurance:MEDICARE ULLERYDOB: [place] [facility] [place] PART A BPolicy Number: [id number] Hospital [address]Rwj: 330 [id number] Repository [phone] () Date:2017-07-12 07/12/2017 Secondary DEDRA L [place] Insurance:AETNA SR ULLERYDOB: Community SUPPLEMENT INSPolic [id number] Hospital Number: Repository [id number] Date:3174-75-57OCGZZ SENIOR SUPPLEMENT [address] [address], [place] [address]VC: 07/12/2017 Tertiary NOT GIVENUNK [place] Insurance:SELF PAY [facility] Number: Effective Repository Date:2017-07-12 07/03/2017 DEDRA L Primary DEDRA L [place] [id number] HIGH Insurance:MEDICARE ULLERYDOB: Community [place] PART A BPolicy Number: [id number] Hospital [address]Ftr: [phone] [id number] Repository [phone] () Date:2017-06-12 07/03/2017 Secondary DEDRA L [place] Insurance:AETNA SR ULLERYDOB: Community SUPPLEMENT INSPolicy [id number] Hospital Number: Repository [id number] Date:8998-64-29LEPPL SENIOR SUPPLEMENT [address] [place] [address]KG: 07/03/2017 Tertiary NOT GIVENUNK [place] Insurance:SELF PAY [facility] Number: Effective Repository Date:2017-06-26 06/27/2017 DEDRA L Primary DEDRA L [place] [id number] HIGH Insurance:MEDICARE ULLERYDOB: [place] PART A BPolicy Number: [id number] Hospital [address]Wgh: [phone] [id number] Repository () Date:2017-06-27 06/27/2017 Secondary DEDRA L [place] Insurance:AETNA SR ULLERYDOB: Community SUPPLEMENT INSPolic [id number] Hospital Number: Repository [id number] Date:3830-70-09HWYIF SENIOR SUPPLEMENT [address] [place] [address]VC: 06/27/2017 Tertiary NOT GIVENUNK [place] Insurance:SELF PAY [facility] Number: Effective Repository Date:2017-06-27 06/24/2017 DEDRA L Primary DEDRA L [place] [id number] HIGH Insurance:MEDICARE ULLERYDOB: [place] PART A BPolicy Number: [id number] Hospital [address]Lre: [phone] [id number] Repository () Date:2017-06-24 06/24/2017 Secondary DEDRA L [place] Insurance:AETNA SR ULLERYDOB: Community SUPPLEMENT INSPolicy [id number] Hospital Number: Repository [id number] Date:6878-04-22TRVRO SENIOR SUPPLEMENT [address] [address], [place] [address]GQ: 06/24/2017 Tertiary NOT GIVENUNK [place] Insurance:SELF PAY [facility] Number: Effective Repository Date:2017-06-24 06/24/2017 DEDRA L Primary DEDRA L [place] [id number] HIGH Insurance:MEDICARE ULLERYDOB: [place] PART A BPolicy Number: [id number] Hospital [address]Wko: [phone] [id number] Repository [phone] () Date:2017-06-24 06/24/2017 Secondary DEDRA L [place] Insurance:AETNA SR ULLERYDOB: Community SUPPLEMENT INSPolicy [id number] Hospital Number: Repository [id number] Date:0330-15-36DYRFD SENIOR SUPPLEMENT [address] [address], [place] [address]ZT: 06/24/2017 Tertiary NOT GIVENUNK [place] Insurance:SELF PAY [facility] Number: Effective Repository Date:2017-06-24 06/24/2017 DEDRA L Primary DEDRA L [place] [id number] HIGH Insurance:MEDICARE ULLERYDOB: [place] PART A BPolicy Number: [id number] Hospital [address]Uxq: [phone] [id number] Repository [phone] () Date:2017-06-24 06/24/2017 Secondary DEDRA L [place] Insurance:AETNA SR ULLERYDOB: Community SUPPLEMENT INSPolicy [id number] Hospital Number: Repository [id number] Date:1914-66-98BNMVV SENIOR SUPPLEMENT [address] [address], [place] [address]SY: 06/24/2017 Tertiary NOT GIVENUNK [place] Insurance:SELF PAY [facility] Number: Effective Repository Date:2017-06-24 06/24/2017 DEDRA L Primary DEDRA L [place] [id number] HIGH Insurance:MEDICARE ULLERYDOB: [place] PART A BPolicy Number: [id number] Hospital [address]Kwg: 330 [id number] Repository [phone] () Date:2017-06-24 06/24/2017 Secondary DEDRA L [place] Insurance:AETNA SR ULLERYDOB: Community SUPPLEMENT INSPolic [id number] Hospital Number: Repository [id number] Date:5800-86-80SULWX SENIOR SUPPLEMENT [address] [place] [address]HZ: 06/24/2017 Tertiary NOT GIVENUNK [place] Insurance:SELF PAY [facility] Number: Effective Repository Date:2017-06-24 06/24/2017 DEDRA L Primary DEDRA L [place] [id number] HIGH Insurance:MEDICARE ULLERYDOB: [facility], PART A BPolicy Number: [id number] [address]Iun: [id number] Repository Date:2017-06-24 () 06/24/2017 Secondary DEDRA L [place] Insurance:AETNA SR ULLERYDOB: Community SUPPLEMENT INSPolic [id number] Hospital Number: Repository [id number] Date:0918-03-14PDGEZ SENIOR SUPPLEMENT [address] [place] [address]LB: 06/24/2017 Tertiary NOT GIVENUNK [place] Insurance:SELF PAY [facility] Number: Effective Repository Date:2017-06-24 06/24/2017 DEDRA L Primary DEDRA L [place] [id number] HIGH Insurance:MEDICARE ULLERYDOB: [place] PART A BPolicy Number: [id number] Hospital [address]110[address]Dpf: [phone] [id number] Repository [phone] () Date:2017-06-24 06/24/2017 Secondary DEDRA L [place] Insurance:AETNA SR ULLERYDOB: Community SUPPLEMENT INSPolic [id number] Hospital Number: Repository [id number] Date:7984-45-49ZEBVS SENIOR SUPPLEMENT [address] [address], [place] [address]IV: 06/24/2017 Tertiary NOT GIVENUNK [place] Insurance:SELF PAY [facility] Number: Effective Repository Date:2017-06-24 06/24/2017 DEDRA L Primary DEDRA L [place] [id number] HIGH Insurance:MEDICARE ULLERYDOB: [place] PART A BPolicy Number: [id number] Hospital [address]Tvo: [phone] [id number] Repository [phone] (HP) Date:2017-06-24 06/24/2017 Secondary DEDRA L [place] Insurance:AETNA SR ULLERYDOB: Community SUPPLEMENT INSPolicy [id number] Hospital Number: Repository [id number] Date:6073-19-86NNEGD SENIOR SUPPLEMENT [address] [address], [place] [address]QC: 06/24/2017 Tertiary NOT GIVENUNK [place] Insurance:SELF PAY [facility] Number: Effective Repository Date:2017-06-24 06/12/2017 DEDRA L Primary DEDRA L [place] [id number] HIGH Insurance:MEDICARE ULLERYDOB: [place] PART A BPolicy Number: [id number] Hospital [address]Lyd: [phone] [id number] Repository [phone] () Date:2017-06-12 06/12/2017 Secondary DEDRA L [place] Insurance:AETNA SR ULLERYDOB: Community SUPPLEMENT INSPolicy [id number] Hospital Number: Repository [id number] Date:0192-10-37RDEAV SENIOR SUPPLEMENT [address] [address], [place] [address]TK: 06/12/2017 Tertiary NOT GIVENUNK [place] Insurance:SELF PAY [facility] Number: Effective Repository Date:2017-06-12
== END ==
PROVIDERS: Family Provider Family Medicine; PCP Family Medicine; Referring Provider Internal Medicine Nephrology; Visit Provider Internal Medicine Nephrology
DX: N17.9 Acute kidney failure, unspecified (principal); N18.3 Chronic kidney disease, stage 3 (moderate)
CPT/HCPCS: 36415; 80069